=== PATIENT | male | born 1940 | race Caucasian/White ===

== ENCOUNTER 2023-05-13 06:30 | Day surgery (SDC) | payer OTHER ==
[2023-05-10 11:32] LABS: Absolute Lymphocytes (CBC) 1.8 K/uL (0.7-4.9); Hematocrit 42.5 % (39.6-49.0); Lymphocytes % 22.3 % (15.3-44.8); MCV 90.4 fL (80-100); MPV 9.6 fL (7.6-11.3)
[2023-05-10 11:48] LABS: Potassium 3.9 mEq/L (3.5-5.1); Protime INR 1.05
--- NOTE | 2023-05-10 12:43 | RAD REPORT ---
EXAM DESCRIPTION: RAD - Chest Pa And Lat (2 Views) - 05/10/2023 11:17 am CLINICAL HISTORY: PREOP Chest pain. COMPARISON: CHEST SINGLE VIEW dated 05/05/2014 TECHNIQUE: PA and lateral views of the chest were obtained. FINDINGS: The lungs are hyperexpanded compatible with COPD. The heart is upper limit of normal in si ze. No fracture or aggressive bony process. IMPRESSION: COPD without acute process identified. The USPSTF recommends annual screening for lung cancer with low-dose CT (LDCT) in adults aged 50 to 8 0 years who have a 20 pack-year smoking history and currently smoke or have quit within the past 15 y ears.
--- NOTE | 2023-05-10 16:27 | EKG ---
Test Date: 2023-05-10 Test Time: 11:01:50 Earring Maker: ESPERANZA MEASUREMENT RESULTS: Intervals: Rate: 88 PA: QRSD: 76 QT: 402 QTc: 486 [place]: P: PA: QRS: 13 T: 61 INTERPRETIVE STATEMENTS: Atrial fibrillation Prolonged QT Abnormal ECG Compared to ECG 07/09/2014 11:55:45 Prolonged QT interval now present Sinus bradycardia no longer present Electronically Signed On 05-10-23 16:27:01 CDT by Adam Zaidi
[2023-05-13] MEDS ORDERED: FENTANYL CITR 100 MCG/2 ML ONE (06:42)
[2023-05-13] MEDS ORDERED: MIDAZOLAM HCL 5 ML ONE (06:43)
[2023-05-13] MEDS ORDERED: METOPROLOL TARTRATE 5 MG/5 ML INJ IV ONE (06:43)
[2023-05-13] MEDS ORDERED: PHENOL 1.4% ORAL SPRAY 180ML ONE (06:44)
[2023-05-13] MEDS ORDERED: ATROPINE SULF 1 MG/10 ML SYR IV ONE (06:44)
[2023-05-13] MEDS ORDERED: LIDOCAINE VISCOUS 2% SOLN 15 ML UDC ONE (06:44)
[2023-05-13] MEDS ORDERED: FLUMAZENIL 0.1 MG/ML (5 mL VIAL) IV ONE (06:44)
[2023-05-13] MEDS ORDERED: NA CHLORIDE 0.9% 500 ML ONE (06:55)
--- NOTE | 2023-05-13 14:48 | TEE ---
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 TRANSESOPHAGEAL ECHOCARDIOGRAM PROBE WAS INSERTED WITHOUT DIFFICULTY 2. NORMAL LEFT VENTRICULAR EJECTION FRACTION 60-65% 3. NO LEFT ATRIAL APPENDAGE THROMBUS IS SEEN 4. 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
--- NOTE | 2023-05-13 17:10 | EKG ---
Test Date: 2023-05-13 Test Time: 08:06:37 Hand Therapist: WALLACE MEASUREMENT RESULTS: Intervals: Rate: 66 NE: 244 QRSD: 82 QT: 422 QTc: 442 [place]: P: 79 NE: 244 QRS: 38 T: 54 INTERPRETIVE STATEMENTS: Sinus rhythm with 1st degree AV block Otherwise normal ECG Compared to ECG 05/10/2023 11:01:50 First degree AV block now present Atrial fibrillation no longer present Prolonged QT interval no longer present Electronically Signed On 05-13-23 17:09:29 CDT by Adam Zaidi
== END 2023-05-13 09:15 | disposition home or self-care (01) ==
LOC: CCL 06:30
PROVIDERS: ATTEND Internal Medicine
DX: I48.91 Unspecified atrial fibrillation (principal); I34.0 Nonrheumatic mitral (valve) insufficiency; I44.0 Atrioventricular block, first degree; I11.0 Hypertensive heart disease with heart failure; I50.9 Heart failure, unspecified; E11.9 Type 2 diabetes mellitus without complications; Z79.01 Long term (current) use of anticoagulants; Z79.84 Long term (current) use of oral hypoglycemic drugs; Z79.899 Other long term (current) drug therapy; Z87.891 Personal history of nicotine dependence
CPT/HCPCS: 93005 ×2; 93312; 85025; 80048; 36415; 85610; 85730; 71046; 92960; J2250; J7040; J0461; J3010

== ENCOUNTER 2023-06-14 14:15 | Emergency (ER) | payer OTHER ==
--- OUTSIDE RECORDS SUMMARY | 2023-06-14 14:30 | XMS REPORT | Continuity of Care Document ---
:1940 Author Organization [facility] t Address [address] [facility] [address] [place] [address] Care Team Providers Name Role Phone Mitesh Muhammad MD Primary Care Physician [phone] Mitesh Muhammad Attending Clinician Unavailable PEDRITO ZAVALETA Attending Clinician Unavailable Abiodun Sanchez Attending Clinician Unavailable Adam Zaidi Attending Clinician Unavailable Doctor Unassigned, [place] Attending Clinician Unavailable Cipriano ALCAZAR, Sendil K.H. Attending Clinician JARRELL COTA K.H. Attending Clinician Unavailable Pedrito Zavaleta MD Attending Clinician 2, [facility] Attending Clinician Unavailable Crow ALCAZAR, [place] Eaton Attending Clinician MITCH MONSIVAIS Attending Clinician Unavailable Nurse, [facility] Attending Clinician Unavailable Unknown, Attending Attending Clinician Unavailable FUAD RODRIGUEZ Attending Clinician Unavailable Michael MIGUEL, Fuad Attending Clinician Jose RODGERS, Gilda Arrington Attending Clinician Unavailable SHELDON SUAREZ Attending Clinician Unavailable Quintin Terrazas MD Attending Clinician Daniela ALCAZAR, Sheldon Attending Clinician Sanjeev RODGERS, Yesica Attending Clinician Unavailable Roseanna Blanchard DO Attending Clinician Yanira Mixon MD Attending Clinician Jermaine Sheppard MD Attending Clinician ELISA PERRY Attending Clinician Unavailable CHUY DIETZ III Attending Clinician Unavailable ALEXI BLANCHARD Attending Clinician Unavailable MD ALEXI BLANCHARD Attending Clinician Unavailable VALERIY ARMENTA Attending Clinician Unavailable SHANNON WANG Attending Clinician Unavailable PEDRITO ZAVALETA Admitting Clinician Unavailable Abiodun Sanchez Admitting Clinician Unavailable Mitesh Muhammad Admitting Clinician Unavailable SHELDON SUAREZ Admitting Clinician Unavailable Sheldon Suarez MD Admitting Clinician Jermaine Sheppard MD Admitting Clinician JERMAINE SHEPPARD Admitting Clinician Unavailable ALEXI BLANCHARD Admitting Clinician Unavailable MD ALEXI BLANCHARD Admitting Clinician Unavailable Payers Payer Name Policy Type Policy Number Effective Date Expiration Date S tierra MEDICARE PART A [id number] 2005 \\T\\ B 00:00:00 [place] LYUDMILA GOODMAN [id number] 2013 00:00:00 [facility] MAXINE [id number] Common joel - [facility] Problems Condition Condition Condition Status Onset Resolution Last Treating Co mments Source Name Details Category Date Date Treatment Clinician Date Persistent Persistent Disease Active Overview : Univers atrial atrial 2-21 Formattin ity of fibrillati fibrillati 00:00: g of this [place] on on note Medical might be Branch different from the original. Added automatic ally from request for surgery [id number] Hypoxia Hypoxia Disease Active Univers 4-20 ity of 00:00: [place] 00 Medical Branch Acute on Acute on Disease Active Unive rs chronic chronic 3-13 it[place] of diastolic diastolic [place] congest[place] congestive 00 Me dical heart heart Branch failure failure Nonrheumat Nonrheumat Disease Active U pablo ic mitral ic mitral 3-13 ity of valve valve 00:00: [place] regurgitat regurgitat 00 Me dical ion ion Branch Pulmonary Pulmonary Disease Active Uni vers hypertensi hypertensi 3-13 it y of on on 00:00: Medical Branch SANTOS (acute SANTOS (acute Disease Active U nivers kidney kidney 3-13 ity of injury) injury) 00:00: Medical Branch Chronic Chronic Disease Active Univers atrial atrial 3-13 ity of fibrillati fibrill[place] Chronic Chronic Disease Active Univers diastolic diastolic 3-13 ity of congestive congestive 00:[place] heart heart 00 Medical failure failure Branch Syncope Syncope Disease Active Univers and and 3-12 ity of collapse collapse 00:00: [place] Medical Branch Atrial Atrial Disease Active Methodi fibrillati fibrillati 2-07 st on on 00:00: Hospita 00 l Controlled Controlled Disease Active U pablo type 2 type 2 6-09 ity of diabetes diabetes 00:00: [place] mellitus mellitus 00 Medica l without without Branch complicati complicati on, on, without without long-term long-term current current use of use of insulin insulin Primary Primary Disease Active Univers hypothyroi hypothyroi 6-09 it y of dism dism 00:00: Medical Branch Essential Essential Disease Active Uni vers hypertensi hypertensi 6-09 it y of on on 00:00: Medical Branch Mixed Mixed Disease Active Univers hyperlipid hyperlipid 6-09 it y of emia emia 00:00: Medical Branch AF AF Disease Active 2015-11 Methodi (paroxysma (paroxysma 0-06 st l atrial l atrial 00:00: Hospit a fibrillati fibrillati 00 l on) on) Right Right Disease Active Univers shoulder shoulder 1-22 ity of pain pain 00:00: [place] Medical Branch Right Right Disease Active Univers shoulder shoulder 1-22 ity of injury, injury, 00:00: [place] sequela sequela 00 Medical Branch [id number] Kidney Problem Common stones [facility] [id number] Renal Problem Commo n [id number] lesion [facility] Allergies, Adverse Reactions, Alerts Allergy Allergy Status Severity Reaction(s) Onset Inactive Treating Comm ents Source Name Type Date Date Clinician No Known DA Active U [facility] Allergie 05-17 Clear s 00:00: [place] 00 [facility] [place] Propensi Active Itching Metho di one ty to 16 st adverse 00:00: Hospita reaction 00 l s to drug ASPIRIN DRUG Active Unknown-Cmnt Uni vers INGREDI 08-12 ity of 00:00: [place] 00 Medical Branch Aspirin Propensi Active Unknown - Because Uni vers ty to See comments 08-12 he is ity of adverse 00:00: taking [place] reaction 00 eliquis Medical s Branch NSAIDS Drug Active Low Unknown-Cmnt Univ ers (NON-SRINIVAS Class 7 ity of ROIDAL 00:00: [place] ANTI-INF 00 Medical LAMMATOR Branch Y DRUG) Nsaids Propensi Active Unknown - Pt taking Un luis m (Non-Srinivas ty to See comments 06-17 Coumadin, ity of roidal adverse 00:00: States, [place] Anti-Inf reaction 00 "MY Medica l lammator s doctor Branch y Drug) told mr not to take anything related to NSAIDS Nsaids Propensi Active Unknown - Pt taking Un luis m (Non-Srinivas ty to See comments 06-17 Coumadin, ity of roidal adverse 00:00: States, [place] Anti-Inf reaction 00 "MY Medica l lammator s doctor Branch y Drug) told mr not to take anything related to NSAIDS Nsaids Propensi Active Unknown - Pt taking Un luis m (Non-Srinivas ty to See comments 7 Coumadin, ity of roidal adverse 00:00: States, [place] Anti-Inf reaction 00 "MY Medica l lammator s doctor Branch y Drug) told mr not to take anything related to NSAIDS Family History Family Member Diagnosis Comments Start Date Stop Date Source Natural father Heart failure [facility] Natural [facility] Social History Social Habit Start Date Stop Date Quantity Comments Source Gender identity [facility] Sexual orientation [facility] History of Tobacco Common Spirit - Use [facility] History of Social 2023-01-23 2023-01-[address] function 00:00:00 00:00:00 Hospital Exposure to 2022-12-24 2023-01-03 Not sure University SARS-CoV-2 (event) 00:00:00 09:40:00 [facility] Tobacco use and 2022-10-31 2022-10-31 Smokeless Universit y of exposure 00:00:00 00:00:00 tobacco non-user [facility] Alcohol intake 2021-12-27 2021-12-27 Current [facility] 00:00:00 00:00:00 non-drinker of Hospital alcohol (finding) Sex Assigned At [birth year] [facility] 00:[facility] Smoking Status Start Date Stop Date Source Ex-smoker 2022-10-31 00:00:00 2022-10-31 00:00:[address] [facility] Medications Ordered Filled Start Stop Current Ordering Indication Dosage Frequency Signature Comments Components Source Medication Medication Date Date Medication? Clinician (SIG) Name Name aspirin 81 0 Yes 81mg Take 81 mg U nivers mg chewable 2-16 by mouth ity of tablet 10:06: daily. [address] apixaban 5 2022-0 Yes 5mg Take 5 mg Un luis m mg tablet 2-16 by mouth 2 ity of 10:06: (two) [place] 02 times Medical daily. Branch aspirin 81 2022-0 Yes 81mg Take 81 mg U nivers mg chewable 2-16 by mouth ity of tablet 10:06: daily. [address] apixaban 5 2022-0 Yes 5mg Take 5 mg Un luis m mg tablet 2-16 by mouth 2 ity of 10:06: (two) [place] 02 times Medical daily. Branch aspirin 81 2022-0 Yes 81mg Take 81 mg U nivers mg chewable 2-16 by mouth ity of tablet 10:06: daily. [address] apixaban 5 2022-0 Yes 5mg Take 5 mg Un luis m mg tablet 2-16 by mouth 2 ity of 10:06: (two) [place] 02 times Medical daily. Branch aspirin 81 3-0 Yes 81mg Take 81 mg U nivers mg chewable 2-16 by mouth ity of tablet 10:06: daily. [place] [facility] Branch apixaban 5 3-0 Yes 5mg Take 5 mg Un luis m mg tablet 2-16 by mouth 2 ity of 10:06: (two) [place] 02 times Medical daily. Branch aspirin 81 3-0 Yes 81mg Take 81 mg U nivers mg chewable 2-16 by mouth ity of tablet 10:06: daily. [place] Medical Branch apixaban 5 3-0 Yes 5mg Take 5 mg Un luis m mg tablet 2-16 by mouth 2 ity of 10:06: (two) [place] 02 times Medical daily. Branch aspirin 81 3-0 Yes 81mg Take 81 mg U nivers mg chewable 2-16 by mouth ity of tablet 10:06: daily. [place] [address] Medical Branch apixaban 5 3-0 Yes 5mg Take 5 mg Un luis m mg tablet 2-16 by mouth 2 ity of 10:06: (two) [place] 02 times Medical daily. Branch aspirin 81 3-0 Yes 81mg Take 81 mg U nivers mg chewable 2-16 by mouth ity of tablet 10:06: daily. [place] [address] Medical Branch apixaban 5 3-0 Yes 5mg Take 5 mg Un luis m mg tablet 2-16 by mouth 2 ity of 10:06: (two) [place] 02 times Medical daily. Branch aspirin 81 3-0 Yes 81mg Take 81 mg U nivers mg chewable 2-16 by mouth ity of tablet 10:06: daily. [place] [address] Medical Branch apixaban 5 3-0 Yes 5mg Take 5 mg Un luis m mg tablet 2-16 by mouth 2 ity of 10:06: (two) [place] 02 times Medical daily. Branch aspirin 81 3-0 Yes 81mg Take 81 mg U nivers mg chewable 2-16 by mouth ity of tablet 10:06: daily. [place] [address] Medical Branch apixaban 5 3-0 Yes 5mg Take 5 mg Un luis m mg tablet 2-16 by mouth 2 ity of 10:06: (two) [place] 02 times Medical daily. Branch aspirin 81 3-0 Yes 81mg Take 81 mg U nivers mg chewable 2-16 by mouth ity of tablet 10:06: daily. [place] [facility] Branch apixaban 5 2022-0 Yes 5mg Take 5 mg Un luis m mg tablet 2-16 by mouth 2 ity of 10:06: (two) [place] 02 times Medical daily. Branch amiodarone 0 2022- No 100mg Take 100 U nivers (PACERONE) - 02-02 mg by ity of 100 mg 08:42: 00:00 mouth [place] tablet 13 :00 daily. Medical Branch aspirin 81 2022-0 Yes 81mg Take 81 mg U nivers mg chewable 02 by mouth ity of tablet 08:41: daily. [place] [facility] apixaban 2022-0 Yes 5mg Take 5 mg Univ ers (ELIQUIS) 5 12-20 by mouth 2 it y of mg tablet 08:41: (two) [place] times Medical daily. Branch metoprolol 0 2022- No Take by Uni vers succinate 12-20-02 mouth ity of (TOPROL XL 08:39: 00:00 [place]. [place] ORAL[place] 13 :00 [facility] Branch metoprolol 2022-0 Yes 25mg Take 1 Unive rs tartrate 25 2-02 tablet by ity of mg tablet 00:00: mouth [place] 00 the Medical morning Branch and 1 tablet in the evening. metformin 2022-0 Yes [id number] 500mg Take 1 Univers ER 500 mg 2-02 tablet by ity o f 24 hr 00:00: mouth in [place] tablet 00 the Medical morning Branch and 1 tablet in the evening. metoprolol 3-0 Yes 25mg Take 1 Unive rs tartrate 25 2-02 tablet by ity of mg tablet 00:00: mouth [place] 00 the Medical morning Branch and 1 tablet in the evening. metformin 2022-0 Yes [id number] 500mg Take 1 Univers ER 500 mg 2-02 tablet by ity o f 24 hr 00:00: mouth in [place] tablet 00 the Medical morning Branch and 1 tablet in the evening. metoprolol 3-0 Yes 25mg Take 1 Unive rs tartrate 25 2-02 tablet by ity of mg tablet 00:00: mouth [place] 00 the Medical morning Branch and 1 tablet in the evening. metformin 3-0 Yes [id number] 500mg Take 1 Univers ER 500 mg 2-02 tablet by ity o f 24 hr 00:00: mouth in [place] tablet 00 the Medical morning Branch and 1 tablet in the evening. metoprolol 2023-0 Yes 25mg Take 1 Unive rs tartrate 25 2-02 tablet by ity of mg tablet 00:00: mouth [place] 00 the Medical morning Branch and 1 tablet in the evening. metformin 2023-0 Yes [id number] 500mg Take 1 Univers ER 500 mg 2-02 tablet by ity o f 24 hr 00:00: mouth in [place] tablet 00 the Medical morning Branch and 1 tablet in the evening. metoprolol 2023-0 Yes 25mg Take 1 Unive rs tartrate 25 2-02 tablet by ity of mg tablet 00:00: mouth [place] 00 the Medical morning Branch and 1 tablet in the evening. metformin 2023-0 Yes [id number] 500mg Take 1 Univers ER 500 mg 2-02 tablet by ity o f 24 hr 00:00: mouth in [place] tablet 00 the Medical morning Branch and 1 tablet in the evening. metoprolol 2023-0 Yes 25mg Take 1 Unive rs tartrate 25 2-02 tablet by ity of mg tablet 00:00: mouth [place] 00 the Medical morning Branch and 1 tablet in the evening. metformin 2023-0 Yes [id number] 500mg Take 1 Univers ER 500 mg 2-02 tablet by ity o f 24 hr 00:00: mouth in [place] tablet 00 the Medical morning Branch and 1 tablet in the evening. metoprolol 2023-0 Yes 25mg Take 1 Unive rs tartrate 25 2-02 tablet by ity of mg tablet 00:00: mouth [place] 00 the Medical morning Branch and 1 tablet in the evening. metformin 2023-0 Yes [id number] 500mg Take 1 Univers ER 500 mg 2-02 tablet by ity o f 24 hr 00:00: mouth in [place] tablet 00 the Medical morning Branch and 1 tablet in the evening. metoprolol 2023-0 Yes 25mg Take 1 Unive rs tartrate 25 2-02 tablet by ity of mg tablet 00:00: mouth [place] 00 the Medical morning Branch and 1 tablet in the evening. metformin 2023-0 Yes [id number] 500mg Take 1 Univers ER 500 mg 2-02 tablet by ity o f 24 hr 00:00: mouth in [place] tablet 00 the Medical morning Branch and 1 tablet in the evening. metoprolol 2022-0 Yes 25mg Take 1 Unive rs tartrate 25 2-02 tablet by ity of mg tablet 00:00: mouth [place] 00 the Medical morning Branch and 1 tablet in the evening. metformin 2022-0 Yes [id number] 500mg Take 1 Univers ER 500 mg 2-02 tablet by ity o f 24 hr 00:00: mouth in [place] tablet 00 the Medical morning Branch and 1 tablet in the evening. metoprolol 2022-0 Yes 25mg Take 1 Unive rs tartrate 25 2-02 tablet by ity of mg tablet 00:00: mouth [place] 00 the Medical morning Branch and 1 tablet in the evening. metformin 2022-0 Yes [id number] 500mg Take 1 Univers ER 500 mg 2-02 tablet by ity o f 24 hr 00:00: mouth in [place] tablet 00 the Medical morning Branch and 1 tablet in the evening. amiodarone 0 Yes 100mg Take 100 Un luis m (PACERONE) 1-27 mg by ity of 100 mg 11:29: mouth [place] tablet 45 daily. Medical Branch amiodarone 2022-0 Yes 100mg Take 100 Un luis m (PACERONE) 1-27 mg by ity of 100 mg 11:29: mouth [place] tablet 45 daily. Medical Branch metoprolol 0 Yes Take by Univ ers succinate 1-26 mouth ity of (TOPROL XL 13:24: daily. [place] ORAL) 47 Medical Branch metoprolol 0 Yes Take by Univ ers succinate 1-26 mouth ity of (TOPROL XL 13:24: daily. [place] ORAL) 47 Medical Branch metoprolol 0 Yes Take by Univ ers succinate 1-26 mouth ity of (TOPROL XL 13:24: daily. [place] ORAL) 47 Medical Branch metoprolol 0 Yes Take by Univ ers succinate 1-26 mouth ity of (TOPROL XL 13:24: daily. [place] ORAL) 47 Medical Branch metoprolol 0 Yes Take by Univ ers succinate 1-26 mouth ity of (TOPROL XL 13:24: daily. [place] ORAL) 47 Medical Branch metoprolol 0 Yes Take by Univ ers succinate 1-26 mouth ity of (TOPROL XL 13:24: daily. [facility]) Medical Branch aspirin 81 3-0 Yes 81mg Take 81 mg U nivers mg chewable 1-26 by mouth ity of tablet 13:07: daily. [place] [address] Medical Branch aspirin 81 3-0 Yes 81mg Take 81 mg U nivers mg chewable 1-26 by mouth ity of tablet 13:07: daily. [address] Branch aspirin 81 3-0 Yes 81mg Take 81 mg U nivers mg chewable 1-26 by mouth ity of tablet 13:07: daily. [address] Branch aspirin 81 3-0 Yes 81mg Take 81 mg U nivers mg chewable 1-26 by mouth ity of tablet 13:07: daily. [address] Branch aspirin 81 3-0 Yes 81mg Take 81 mg U nivers mg chewable 1-26 by mouth ity of tablet 13:07: daily. [address] Branch aspirin 81 3-0 Yes 81mg Take 81 mg U nivers mg chewable -26 by mouth ity of tablet 13:07: daily. [address] Branch apixaban 3-0 Yes 5mg Take 5 mg Univ ers (ELIQUIS) 5 - by mouth 2 it y of mg tablet 13:06: (two) [place] 35 times Medical daily. Branch apixaban 3-0 Yes 5mg Take 5 mg Univ ers (ELIQUIS) 5 -26 by mouth 2 it y of mg tablet 13:06: (two) [place] 35 times Medical daily. Branch apixaban 2023-0 Yes 5mg Take 5 mg Univ ers (ELIQUIS) 5 -26 by mouth 2 it y of mg tablet 13:06: (two) [place] 35 times Medical daily. Branch apixaban 3-0 Yes 5mg Take 5 mg Univ ers (ELIQUIS) 5 -26 by mouth 2 it y of mg tablet 13:06: (two) [place] 35 times Medical daily. Branch apixaban 3-0 Yes 5mg Take 5 mg Univ ers (ELIQUIS) 5 -26 by mouth 2 it y of mg tablet 13:06: (two) [place] 35 times Medical daily. Branch apixaban 2023-0 Yes 5mg Take 5 mg Univ ers (ELIQUIS) 5 1-26 by mouth 2 it y of mg tablet 13:06: (two) [place] 35 times Medical daily. Branch amiodarone 0 Yes 100mg Take 100 Un luis m (PACERONE) 1-26 mg by ity of 100 mg 13:06: mouth [place] tablet 25 daily. Medical Branch amiodarone 0 Yes 100mg Take 100 Un luis m (PACERONE) 1-26 mg by ity of 100 mg 13:06: mouth [place] tablet 25 daily. Medical Branch amiodarone 0 Yes 100mg Take 100 Un luis m (PACERONE) 1-26 mg by ity of 100 mg 13:06: mouth [place] tablet 25 daily. Medical Branch amiodarone 0 Yes 100mg Take 100 Un luis m (PACERONE) 1-26 mg by ity of 100 mg 13:06: mouth [place] tablet 25 daily. Medical Branch metformin 2022-0 Yes [id number] 500mg Take 1 Univers ER 500 mg 1-26 tablet by ity o f 24 hr 00:00: mouth [place] tablet 00 daily with Medical breakfast. Branch metformin 2022-0 Yes [id number] 500mg Take 1 Univers ER 500 mg 1-26 tablet by ity o f 24 hr 00:00: mouth [place] tablet 00 daily with Medical breakfast. Branch metformin 2022-0 Yes [id number] 500mg Take 1 Univers ER 500 mg 1-26 tablet by ity o f 24 hr 00:00: mouth [place] tablet 00 daily with Medical breakfast. Branch metformin 2022-0 Yes [id number] 500mg Take 1 Univers ER 500 mg 1-26 tablet by ity o f 24 hr 00:00: mouth [place] tablet 00 daily with Medical breakfast. Branch metformin 0 Yes [id number] 500mg Take 1 Univers ER 500 mg 1-26 tablet by ity o f 24 hr 00:00: mouth [place] tablet 00 daily with Medical breakfast. Branch metformin 2022-0 Yes [id number] 500mg Take 1 Univers ER 500 mg 1-26 tablet by ity o f 24 hr 00:00: mouth [place] tablet 00 daily with Medical breakfast. Branch metformin 2022-0 2022- No [id number] 500mg Take 1 Univers ER 500 mg 1-26 - tablet by ity of 24 hr 00:00: 00:00 mouth [place] tablet 00 :00 daily with Medical breakfast. Branch aspirin 81 2022-0 Yes 81mg Take 81 mg U nivers mg chewable 1-01 by mouth ity of tablet 17:01: daily. [address] aspirin 81 2022-0 Yes 81mg Take 81 mg U nivers mg chewable 1-01 by mouth ity of tablet 17:01: daily. [address] aspirin 81 2022-0 Yes 81mg Take 81 mg U nivers mg chewable 1-01 by mouth ity of tablet 17:01: daily. [address] aspirin 81 2022-0 Yes 81mg Take 81 mg U nivers mg chewable 1-01 by mouth ity of tablet 17:01: daily. [address] apixaban 2021-11 Yes 5mg Take 5 mg Univ ers (ELIQUIS) 5 2-14 by mouth 2 it y of mg tablet 08:55: (two) [place] 02 times Medical daily. Branch apixaban 2021-11 Yes 5mg Take 5 mg Univ ers (ELIQUIS) 5 2-14 by mouth 2 it y of mg tablet 08:55: (two) [place] 02 times Medical daily. Branch apixaban 2021-11 Yes 5mg Take 5 mg Univ ers (ELIQUIS) 5 2-14 by mouth 2 it y of mg tablet 08:55: (two) [place] 02 times Medical daily. Branch apixaban 2021-11 Yes 5mg Take 5 mg Univ ers (ELIQUIS) 5 2-14 by mouth 2 it y of mg tablet 08:55: (two) [place] 02 times Medical daily. Branch amiodarone 2021-11 Yes 100mg Take 100 Un luis m (PACERONE) 2-14 mg by ity of 100 mg 08:55: mouth [place] tablet 01 daily. Medical Branch amiodarone 2021-11 Yes 100mg Take 100 Un luis m (PACERONE) 2-14 mg by ity of 100 mg 08:55: mouth [place] tablet 01 daily. Medical Branch amiodarone 2021-11 Yes 100mg Take 100 Un luis m (PACERONE) 2-14 mg by ity of 100 mg 08:55: mouth [place] tablet 01 daily. Medical Branch amiodarone 2021-11 Yes 100mg Take 100 Un luis m (PACERONE) 2-14 mg by ity of 100 mg 08:55: mouth [place] tablet 01 daily. Medical Branch amoxicillin 2021-11- No [id number] 1{tbl} Take 1 Univers -clavulanat 1- 11-12 tablet by it y of e [id number] 00:00: 05:59 mouth [place] mg per 00 :00 every 12 Medical tablet (twelve) Branch hours for 10 days. metoprolol 2021-11 Yes 25mg Take 25 mg U nivers tartrate 25 0-19 by mouth ity of mg tablet 00:00: in the [place] 00 morning Medical and 25 mg Branch in the evening. metoprolol 2021-11 Yes 25mg Take 25 mg U nivers tartrate 25 0-19 by mouth ity of mg tablet 00:00: in the [place] 00 morning Medical and 25 mg Branch in the evening. metoprolol 2021-11 Yes 25mg Take 25 mg U nivers tartrate 25 0-19 by mouth ity of mg tablet 00:00: in the [place] 00 morning Medical and 25 mg Branch in the evening. metoprolol 2021-11 Yes 25mg Take 25 mg U nivers tartrate 25 0-19 by mouth ity of mg tablet 00:00: in the [place] 00 morning Medical and 25 mg Branch in the evening. metoprolol 2021-11- No 25mg Take 25 mg Univers tartrate 25 0-19 01-26 by mouth ity of mg tablet 00:00: 00:00 in the [place] 00 :00 morning Medical and 25 mg Branch in the evening. metoprolol 2021-11- No 25mg Take 25 mg Univers tartrate 25 0-19 01-26 by mouth ity of mg tablet 00:00: 00:00 in the [place] 00 :00 morning Medical and 25 mg Branch in the evening. furosemide 2021-11 Yes 40mg Take 40 mg U nivers 40 mg 0-13 by mouth ity of tablet 00:00: in the [place] 00 morning. Medical Branch potassium 2021-11 Yes 10meq Take 10 Univ ers chloride 10 0-13 mEq by ity of mEq CR 00:00: mouth in [place] tablet 00 the Medical morning. Branch furosemide 2021-11 Yes 40mg Take 40 mg U nivers 40 mg 0-13 by mouth ity of tablet 00:00: in the [place] 00 morning. Medical Branch potassium 2021-11 Yes 10meq Take 10 Univ ers chloride 10 0-13 mEq by ity of mEq CR 00:00: mouth in [place] tablet 00 the Medical morning. Branch furosemide 2021-1 Yes 40mg Take 40 mg U nivers 40 mg 0-13 by mouth ity of tablet 00:00: in the [place] 00 morning. Medical Branch potassium 2021-1 Yes 10meq Take 10 Univ ers chloride 10 0-13 mEq by ity of mEq CR 00:00: mouth in [place] tablet 00 the Medical morning. Branch furosemide 2021-1 Yes 40mg Take 40 mg U nivers 40 mg 0-13 by mouth ity of tablet 00:00: in the 00 morning. Medical Branch potassium 2021-1 Yes 10meq Take 10 Univ ers chloride 10 0-13 mEq by ity of mEq CR 00:00: mouth in [place] tablet 00 the Medical morning. Branch furosemide 2021-1 Yes 40mg Take 40 mg U nivers 40 mg 0-13 by mouth ity of tablet 00:00: in the [place] morning. Medical Branch potassium 2021-1 Yes 10meq Take 10 Univ ers chloride 10 0-13 mEq by ity of mEq CR 00:00: mouth in [place] tablet 00 the Medical morning. Branch furosemide 2021-1 Yes 40mg Take 40 mg U nivers 40 mg 0-13 by mouth ity of tablet 00:00: in the [place] 00 morning. Medical Branch potassium 2021-1 Yes 10meq Take 10 Univ ers chloride 10 0-13 mEq by ity of mEq CR 00:00: mouth in [place] tablet 00 the Medical morning. Branch furosemide 2021-1 Yes 40mg Take 40 mg U nivers 40 mg 0-13 by mouth ity of tablet 00:00: in the [place] 00 morning. Medical Branch potassium 2021-1 Yes 10meq Take 10 Univ ers chloride 10 0-13 mEq by ity of mEq CR 00:00: mouth in [place] tablet 00 the Medical morning. Branch furosemide 2021-1 Yes 40mg Take 40 mg U nivers 40 mg 0-13 by mouth ity of tablet 00:00: in the [place] 00 morning. Medical Branch potassium 2-1 Yes 10meq Take 10 Univ ers chloride 10 0-13 mEq by ity of mEq CR 00:00: mouth in [place] tablet 00 the Medical morning. Branch furosemide 2-1 Yes 40mg Take 40 mg U nivers 40 mg 0-13 by mouth ity of tablet 00:00: in the [place] 00 morning. Medical Branch potassium 2021-1 Yes 10meq Take 10 Univ ers chloride 10 0-13 mEq by ity of mEq CR 00:00: mouth in [place] tablet 00 the Medical morning. Branch furosemide 2-1 Yes 40mg Take 40 mg U nivers 40 mg 0-13 by mouth ity of tablet 00:00: in the [place] 00 morning. Medical Branch potassium 2021-1 Yes 10meq Take 10 Univ ers chloride 10 0-13 mEq by ity of mEq CR 00:00: mouth in [place] tablet 00 the Medical morning. Branch furosemide 2021-1 Yes 40mg Take 40 mg U nivers 40 mg 0-13 by mouth ity of tablet 00:00: in the [place] 00 morning. Medical Branch potassium 2021-1 Yes 10meq Take 10 Univ ers chloride 10 0-13 mEq by ity of mEq CR 00:00: mouth in [place] tablet 00 the Medical morning. Branch furosemide 2021-1 Yes 40mg Take 40 mg U nivers 40 mg 0-13 by mouth ity of tablet 00:00: in the [place] 00 morning. Medical Branch potassium 2021-1 Yes 10meq Take 10 Univ ers chloride 10 0-13 mEq by ity of mEq CR 00:00: mouth in [place] tablet 00 the Medical morning. Branch furosemide 2021-1 Yes 40mg Take 40 mg U nivers 40 mg 0-13 by mouth ity of tablet 00:00: in the [place] 00 morning. Medical Branch potassium 2-1 Yes 10meq Take 10 Univ ers chloride 10 0-13 mEq by ity of mEq CR 00:00: mouth in [place] tablet 00 the Medical morning. Branch furosemide 2-1 Yes 40mg Take 40 mg U nivers 40 mg 0-13 by mouth ity of tablet 00:00: in the [place] 00 morning. Medical Branch potassium 2021-1 Yes 10meq Take 10 Univ ers chloride 10 0-13 mEq by ity of mEq CR 00:00: mouth in [place] tablet 00 the Medical morning. Branch furosemide 2-1 Yes 40mg Take 40 mg U nivers 40 mg 0-13 by mouth ity of tablet 00:00: in the [place] 00 morning. Medical Branch potassium 2-1 Yes 10meq Take 10 Univ ers chloride 10 0-13 mEq by ity of mEq CR 00:00: mouth in [place] tablet 00 the Medical morning. Branch furosemide 2021-1 Yes 40mg Take 40 mg U nivers 40 mg 0-13 by mouth ity of tablet 00:00: in the [place] 00 morning. Medical Branch potassium 2021-1 Yes 10meq Take 10 Univ ers chloride 10 0-13 mEq by ity of mEq CR 00:00: mouth in [place] tablet 00 the Medical morning. Branch furosemide 2021-1 Yes 40mg Take 40 mg U nivers 40 mg 0-13 by mouth ity of tablet 00:00: in the [place] 00 morning. Medical Branch potassium 2021-1 Yes 10meq Take 10 Univ ers chloride 10 0-13 mEq by ity of mEq CR 00:00: mouth in [place] tablet 00 the Medical morning. Branch furosemide 2021-1 Yes 40mg Take 40 mg U nivers 40 mg 0-13 by mouth ity of tablet 00:00: in the [place] 00 morning. Medical Branch potassium 2021-1 Yes 10meq Take 10 Univ ers chloride 10 0-13 mEq by ity of mEq CR 00:00: mouth in [place] tablet 00 the Medical morning. Branch furosemide 2021-1 Yes 40mg Take 40 mg U nivers 40 mg 0-13 by mouth ity of tablet 00:00: in the [place] 00 morning. Medical Branch potassium 2021-1 Yes 10meq Take 10 Univ ers chloride 10 0-13 mEq by ity of mEq CR 00:00: mouth in [place] tablet 00 the Medical morning. Branch furosemide 2021-1 Yes 40mg Take 40 mg U nivers 40 mg 0-13 by mouth ity of tablet 00:00: in the [place] 00 morning. Medical Branch potassium 2021-1 Yes 10meq Take 10 Univ ers chloride 10 0-13 mEq by ity of mEq CR 00:00: mouth in [place] tablet 00 the Medical morning. Branch furosemide 2021-1 Yes 40mg Take 40 mg U nivers 40 mg 0-13 by mouth ity of tablet 00:00: in the [place] 00 morning. Medical Branch potassium 2021-1 Yes 10meq Take 10 Univ ers chloride 10 0-13 mEq by ity of mEq CR 00:00: mouth in [place] tablet 00 the Medical morning. Branch cephALEXin 2021-0 2022- No [id number] 500mg Take 1 [facility] 500 mg 6-05 06-13 capsule by ity of capsule 00:00: 04:59 mouth 4 [place] 00 :00 (four) Medical times [place] daily for 7 days. metoprolol 2021- No [id number] 25mg Take 1 [facility] succinate 4-23 05-24 tablet by ity of XL 25 mg 24 00:00: 04:59 mouth [place] hr tablet 00 :00 daily for Medic al 30 days. Branch metoprolol 2021- No [id number] 25mg Take 1 [facility] succinate 4-23 05-24 tablet by ity of XL 25 mg 24 00:00: 04:59 mouth [place] hr tablet 00 :00 daily for Medic al 30 days. Branch aspirin 81 Yes 81mg Take 81 mg U nivers mg chewable 4-22 by mouth ity of tablet 13:49: daily. [place] [facility] apixaban Yes 5mg Take 5 mg Univ ers (ELIQUIS) 5 4-22 by mouth 2 it y of mg tablet 13:49: (two) [place] [address] times [facility] daily. Branch amiodarone Yes 100mg Take 100 Un luis m (PACERONE) 4-22 mg by ity of 100 mg 13:49: mouth [place] tablet 29 daily. Medical Branch aspirin 81 Yes 81mg Take 81 mg U nivers mg chewable 4-22 by mouth ity of tablet 13:49: daily. [place] [facility] apixaban 0 Yes 5mg Take 5 mg Univ ers (ELIQUIS) 5 4-22 by mouth 2 it y of mg tablet 13:49: (two) [place] [address] times Medical daily. Branch amiodarone Yes 100mg Take 100 Un luis m (PACERONE) 4-22 mg by ity of 100 mg 13:49: mouth [place] tablet 29 daily. Medical Branch aspirin 81 0 Yes 81mg Take 81 mg U nivers mg chewable 4-22 by mouth ity of tablet 13:49: daily. [place] [facility] apixaban 0 Yes 5mg Take 5 mg Univ ers (ELIQUIS) 5 4-22 by mouth 2 it y of mg tablet 13:49: (two) [place] [address] times Medical daily. Branch amiodarone Yes 100mg Take 100 Un luis m (PACERONE) 4-22 mg by ity of 100 mg 13:49: mouth [place] tablet 29 daily. Medical Branch aspirin 81 Yes 81mg Take 81 mg U nivers mg chewable 4-22 by mouth ity of tablet 13:49: daily. [place] [facility] Branch apixaban Yes 5mg Take 5 mg Univ ers (ELIQUIS) 5 4-22 by mouth 2 it y of mg tablet 13:49: (two) [place] 29 times Medical daily. Branch amiodarone Yes 100mg Take 100 Un luis m (PACERONE) 4-22 mg by ity of 100 mg 13:49: mouth [place] tablet 29 daily. Medical Branch aspirin 81 Yes 81mg Take 81 mg U nivers mg chewable 4-22 by mouth ity of tablet 13:49: daily. [place] [facility] Branch apixaban Yes 5mg Take 5 mg Univ ers (ELIQUIS) 5 4-22 by mouth 2 it y of mg tablet 13:49: (two) [place] times Medical daily. Branch amiodarone Yes 100mg Take 100 Un luis m (PACERONE) 4-22 mg by ity of 100 mg 13:49: mouth [place] tablet 29 daily. Medical Branch furosemide 2021- No [id number] 40mg Take 1 [facility] 40 mg 4-22 05-23 tablet by ity of tablet 00:00: 04:59 mouth [place] 00 :00 every Medical morning Branch and evening for 30 days. furosemide 2021- No [id number] 40mg Take 1 [facility] 40 mg 4-22 05-23 tablet by ity of tablet 00:00: 04:59 mouth [place] 00 :00 every Medical morning Branch and evening for 30 days. docusate Yes 100mg 100 mg, Unive rs (COLACE) 4-21 Oral, ity of capsule 100 14:00: DAILY, [place] 00 First dose Medical on [facility] 03/08/22 at 0900, Until Discontinu ed, Routine metoprolol Yes 25mg 25 mg, Unive rs succinate 4-21 Oral, ity of XL (TOPROL 14:00: DAILY, [place] XL) tablet 00 First dose Med ical 25 mg on [facility] 03/08/22 at 0900, Until Discontinu ed, Routine tamsulosin Yes .4mg 0.4 mg, Univ ers (FLOMAX) 03-08 Oral, ity of capsule 0.4 14:00: DAILY, [place] mg 00 First dose Medical on [facility] Branch 03/08/22 at 0900, Until Discontinu ed, Routine Sliding Yes Subcutaneo Univ ers Scale 03-08 us, TID ity of Insulin - 13:00: MEALS, [place] Lispro 00 First dose Medical (HumaLOG) + on [facility] Branch Fsbg 03/08/22 at Testing 0800, Until Discontinu ed, Routine apixaban Yes 5mg 5 mg, Univers (ELIQUIS) 03-08 Oral, BID, ity of tablet 5 mg 13:00: First dose [place] 00 on [facility] Medical 03/08/22 at Branch 0800, Until Discontinu ed, Routine
Indicatio ns: Non-Valvul ar Atrial Fibrillati on furosemide Yes 20mg 20 mg, Unive rs (LASIX) 03-08 Slow IV ity of injection 11:00: Push, Q8H, [place] 20 mg 00 First dose Medical (after Branch last modificati on) on [facility] 03/08/22 at 0600, Until Discontinu ed, DEE levothyroxi Yes 100ug 100 mcg, U nivers ne 03-08 Oral, ity of (SYNTHROID) 11:00: QAM-0600, [place] tablet 100 00 First dose Med ical mcg on [facility] Branch 03/08/22 at 0600, Until Discontinu ed, Routine aspirin Yes 81mg 81 mg, Univers chewable 03-08 Oral, QAM ity of tablet 81 08:00: WITH [place] mg 00 BREAKFAST, Medical First dose Branch on [facility] 03/08/22 at 0300, Until Discontinu ed, Routine ondansetron Yes 4mg 4 mg, Slow Univers (ZOFRAN 03-08 IV Push, ity of (PF)) 07:58: Q6HPRN, [place] injection 4 24 Starting Medi joo mg on [facility] Branch 03/08/22 at 0258, Until Discontinu ed, Routine, Nausea and Vomiting (N/V) glucagon Yes 1mg 1 mg, Univers (GLUCAGEN 03-08 Intramuscu ity of DIAGNOSTIC 07:57: [place], PRN, [place] KIT) 08 Starting Medical injection 1 on [place] Branch mg 03/08/22 at 0257, Until Discontinu ed, DEE, Blood Glucose < or = 70 mg/dL and patient is unable to swallow or has mental changes. dextrose 50 Yes 25mL 25 mL, Univ ers % in water 03-08 Slow IV ity of (D50W) 07:57: Push, PRN, [place] injection 08 Starting Medica l 25 mL on [place] Branch 03/08/22 at 0257, Until Discontinu ed, DEE, Blood Glucose < or = 70 mg/dL and patient is unable to swallow or has mental status changes. furosemide 2021- No 20mg 20 mg, Univ ers (LASIX) 03-08 Slow IV ity of injection 05:00: 10:42 Push, Q6H, [place] 20 mg 00 :16 First dose Medical on [facility] Branch 03/08/22 at 0000, Until Discontinu ed, DEE iopamidol 2021- No [id number] 100mL 100 mL, Univers (ISOVUE 03-08 Intravenou ity o f 370-500 mL) 04:00: 02:52 s, ONCE, 1 [place] injection 00 :00 dose, On Medica l 100 mL [facility] Branch 03/07/22 at 2300, Routine amiodarone 2021- No [id number] 200mg Take 1 Univers 200 mg 3-15 04-15 tablet by ity of tablet 00:00: 04:59 mouth [place] 00 :00 daily for Medical 30 days. Branch amiodarone 2021- No [id number] 200mg Take 1 Univers 200 mg 3-15 04-15 tablet by ity of tablet 00:00: 04:59 mouth [place] 00 :00 daily for Medical 30 days. Branch aspirin 81 Yes 81mg Take 81 mg U nivers mg chewable 3-14 by mouth ity of tablet 16:15: daily. [place] 37 [facility] Branch apixaban 2022-0 Yes 5mg Take 5 mg Univ ers (ELIQUIS) 5 3-14 by mouth 2 it y of mg tablet 16:15: (two) [place] [address] times Medical daily. Branch aspirin 81 0 Yes 81mg Take 81 mg U nivers mg chewable 3-14 by mouth ity of tablet 16:15: daily. [address] apixaban 0 Yes 5mg Take 5 mg Univ ers (ELIQUIS) 5 3-14 by mouth 2 it y of mg tablet 16:15: (two) [place] [address] times Medical daily. Branch melatonin Yes 3mg 3 mg, Univers (MELATIN) 3-14 Oral, QHS, ity of tablet 3 mg 03:30: First dose [place] 00 on [facility] 01/28/22 at Branch 2230, Until Discontinu ed, Routine melatonin 3 2021- No [id number] 3mg Take 1 Univers mg tablet 01-29-14 tablet by ity of 00:00: 04:59 mouth at [place] 00 :00 bedtime Medical for 30 Branch days. melatonin 3 2021- No [id number] 3mg Take 1 Univers mg tablet 01-29-14 tablet by ity of 00:00: 04:59 mouth at [place] 00 :00 bedtime Medical for 30 Branch days. amiodarone Yes 200mg 200 mg, Uni vers (PACERONE) 3-13 Oral, ity of tablet 200 14:00: DAILY, [place] mg 00 First dose Medical on [facility] 01/28/22 at 0900, Until Discontinu ed, Routine metoprolol Yes 50mg 50 mg, Unive rs succinate 3-13 Oral, ity of XL (TOPROL 14:00: DAILY, [place] XL) tablet 00 First dose Med ical 50 mg on [facility] 01/28/22 at 0900, Until Discontinu ed, Routine tamsulosin Yes .4mg 0.4 mg, Univ ers (FLOMAX) 3-13 Oral, ity of capsule 0.4 14:00: DAILY, [place] mg 00 First dose Medical on [facility] 01/28/22 at 0900, Until Discontinu ed, Routine apixaban Yes 5mg 5 mg, Univers (ELIQUIS) 3-13 Oral, BID, ity of tablet 5 mg 13:00: First dose on [facility] 01/28/22 at Branch 0800, Until Discontinu ed, Routine
Indicatio ns: Non-Valvul ar Atrial Fibrillati on levothyroxi Yes 75ug 75 mcg, Uni vers ne 3-13 Oral, ity of (SYNTHROID) 11:00: QAM-0600, [place] tablet 75 00 First dose Medi joo mcg on [facility] 01/28/22 at 0600, Until Discontinu ed, Routine HYDROcodone 2021- No 1{tbl} 1 tablet, Univers -acetaminop 01-28-13 Oral, ity of hen (NORCO 03:30: 02:29 ONCE, 1 [place] 5) 5-325 mg 00 :00 dose, On Medi joo tablet 1 [facility] tablet 01/27/22 at 2130, DEE traMADoL 2021- No 50mg 50 mg, Univer s (ULTRAM) 01-2815 Oral, ity of tablet 50 02:42: 02:41 Q4HPRN, [place] mg 21 :21 Starting Medical on [facility] 01/27/22 at 204, Until 01/29/22 at 2141, Routine, Pain (scale 4-6) acetaminoph Yes 650mg 650 mg, Un luis m en 13 Oral, ity of (TYLENOL) 02:42: Q6HPRN, [place] tablet 650 17 Starting Medic al mg on [facility] 01/27/22 at 2041, Until Discontinu ed, Routine, Pain (scale 1-3) tamsulosin 0 Yes Univers 0.4 mg 24 2-18 ity of hr capsule 00:00: [address] tamsulosin 2021-0 Yes Univers 0.4 mg 24 2-18 ity of hr capsule 00:00: [address] tamsulosin 2021-0 Yes Univers 0.4 mg 24 2-18 ity of hr capsule 00:00: [address] tamsulosin 2021-0 Yes Univers 0.4 mg 24 2-18 ity of hr capsule 00:00: [address] tamsulosin 2021-0 Yes Univers 0.4 mg 24 2-18 ity of hr capsule 00:00: [place] [facility] tamsulosin 2022-0 Yes Univers 0.4 mg 24 2-18 ity of hr capsule 00:00: [place] [facility] tamsulosin 2022-0 Yes Univers 0.4 mg 24 2-18 ity of hr capsule 00:00: [place] [facility] tamsulosin 2022-0 Yes Univers 0.4 mg 24 2-18 ity of hr capsule 00:00: [place] [facility] tamsulosin 2022-0 Yes Univers 0.4 mg 24 2-18 ity of hr capsule 00:00: [place] [facility] tamsulosin 2022-0 Yes Univers 0.4 mg 24 2-18 ity of hr capsule 00:00: [place] [facility] tamsulosin 2022-0 Yes Univers 0.4 mg 24 2-18 ity of hr capsule 00:00: [place] [facility] tamsulosin 2022-0 Yes Univers 0.4 mg 24 2-18 ity of hr capsule 00:00: [place] [facility] tamsulosin 2022-0 Yes Univers 0.4 mg 24 2-18 ity of hr capsule 00:00: [place] [facility] tamsulosin 2022-0 Yes Univers 0.4 mg 24 2-18 ity of hr capsule 00:00: [place] [facility] tamsulosin 2022-0 Yes Univers 0.4 mg 24 2-18 ity of hr capsule 00:00: [place] [facility] tamsulosin 2022-0 Yes Univers 0.4 mg 24 2-18 ity of hr capsule 00:00: [place] [facility] tamsulosin 2022-0 Yes Univers 0.4 mg 24 2-18 ity of hr capsule 00:00: [place] [facility] tamsulosin 2022-0 Yes Univers 0.4 mg 24 2-18 ity of hr capsule 00:00: [place] [facility] tamsulosin 2022-0 Yes Univers 0.4 mg 24 2-18 ity of hr capsule 00:00: [place] [facility] tamsulosin 2022-0 Yes Univers 0.4 mg 24 2-18 ity of hr capsule 00:00: [place] [facility] tamsulosin 2022-0 Yes Univers 0.4 mg 24 2-18 ity of hr capsule 00:00: [place] [facility] tamsulosin 2022-0 Yes Univers 0.4 mg 24 2-18 ity of hr capsule 00:00: [place] [facility] tamsulosin 2-0 Yes Univers 0.4 mg 24 2-18 ity of hr capsule 00:00: [place] [facility] tamsulosin 2-0 Yes Univers 0.4 mg 24 2-18 ity of hr capsule 00:00: [place] [facility] tamsulosin 2-0 Yes Univers 0.4 mg 24 2-18 ity of hr capsule 00:00: [place] [facility] tamsulosin 2-0 Yes Univers 0.4 mg 24 2-18 ity of hr capsule 00:00: [place] [facility] tamsulosin 2-0 Yes Univers 0.4 mg 24 2-18 ity of hr capsule 00:00: [place] [facility] tamsulosin 2021-0 Yes Univers 0.4 mg 24 2-18 ity of hr capsule 00:00: [place] [facility] apixaban 2021-0 Yes Q.5D Take by [facility] i (ELIQUIS) 5 2-[address] mg tablet 12:47: (two) [facility] times a l day. apixaban 2021-0 Yes Q.5D Take by Method i (ELIQUIS) 5 2-[address] mg tablet 12:47: (two) [facility] 04 times a l day. apixaban 2021-0 Yes Q.5D Take by Method i (ELIQUIS) 5 2-[address] mg tablet 12:47: (two) [facility] 04 times a l day. isosorbide 2021-0 2021- No 30mg Take 30 mg Univers mononitrate 12-30 by mouth. it y of 30 mg 24 hr 00:00: 00:00 [place] tablet 00 :00 Medical Branch losartan 25 2021-0 2021- No 25mg Take 25 mg Univers mg tablet 12-30 by mouth. ity of 00:00: 00:00 [place] 00 : Medical Branch spironolact 2021-0 2021- No 25mg Take 25 mg Univers one 25 mg 12-30 by mouth. ity of tablet 00:00: 00:00 [place] 00 :00 Medical Branch amiodarone 2021-0 2021- No 100mg Take 100 U nivers 100 mg 2-11 03-14 mg by ity of tablet 00:00: 00:00 mouth. [place] 00 :00 Medical Branch furosemide 2021-0 2022- No 40mg Take 40 mg Univers 40 mg 12-29-14 by mouth. ity of tablet 00:00: 00:00 [place] 00 :00 Medical Branch metformin 2020-0 Yes [id number] 750mg Take 1 Univers ER 750 mg 6-09 tablet by ity o f 24 hr 00:00: mouth 2 [place] tablet 00 (two) Medical times Branch daily with meals. metformin 2020-0 Yes [id number] 750mg Take 1 Univers ER 750 mg 6-09 tablet by ity o f 24 hr 00:00: mouth 2 [place] tablet 00 (two) Medical times Branch daily with meals. metformin 2020-0 Yes [id number] 750mg Take 1 Univers ER 750 mg 6-09 tablet by ity o f 24 hr 00:00: mouth 2 [place] tablet 00 (two) Medical times Branch daily with meals. metformin 2020-0 Yes [id number] 750mg Take 1 Univers ER 750 mg 6-09 tablet by ity o f 24 hr 00:00: mouth 2 [place] tablet 00 (two) Medical times Branch daily with meals. metformin 2020-0 Yes [id number] 750mg Take 1 Univers ER 750 mg 6-09 tablet by ity o f 24 hr 00:00: mouth 2 [place] tablet 00 (two) Medical times Branch daily with meals. metformin 2020-0 Yes [id number] 750mg Take 1 Univers ER 750 mg 6-09 tablet by ity o f 24 hr 00:00: mouth 2 [place] tablet 00 (two) Medical times Branch daily with meals. metformin 2020-0 Yes [id number] 750mg Take 1 Univers ER 750 mg 6-09 tablet by ity o f 24 hr 00:00: mouth 2 [place] tablet 00 (two) Medical times Branch daily with meals. metformin 2020-0 Yes [id number] 750mg Take 1 Univers ER 750 mg 6-09 tablet by ity o f 24 hr 00:00: mouth 2 [place] tablet 00 (two) Medical times Branch daily with meals. metformin 2020-0 Yes [id number] 750mg Take 1 Univers ER 750 mg 6-09 tablet by ity o f 24 hr 00:00: mouth 2 [place] tablet 00 (two) Medical times Branch daily with meals. metformin 2020-0 Yes [id number] 750mg Take 1 Univers ER 750 mg 6-09 tablet by ity o f 24 hr 00:00: mouth 2 [place] tablet 00 (two) Medical times Branch daily with meals. metformin 2020-0 Yes [id number] 750mg Take 1 Univers ER 750 mg 6-09 tablet by ity o f 24 hr 00:00: mouth 2 [place] tablet 00 (two) Medical times Branch daily with meals. metformin 2020-0 Yes [id number] 750mg Take 1 Univers ER 750 mg 6-09 tablet by ity o f 24 hr 00:00: mouth 2 [place] tablet 00 (two) Medical times Branch daily with meals. metformin 2020-0 2023- No [id number] 750mg Take 1 Univers ER 750 mg 6-12-13 tablet by ity of 24 hr 00:00: 00:00 mouth 2 [place] tablet 00 :00 (two) Medical times Branch daily with meals. metformin 2020-0 2023- No [id number] 750mg Take 1 Univers ER 750 mg 6-12-13 tablet by ity of 24 hr 00:00: 00:00 mouth 2 [place] tablet 00 :00 (two) Medical times Branch daily with meals. ACCU-CHEK 2020-0 Yes [id number] USE TO U nivers FASTCLIX 2-23 CHECK ity of LANCET DRUM 00:00: GLUCOSE [place] Misc 00 ONCE Medical DAILY. Branch DX:E11.9 blood sugar 0 Yes [id number] USE TO Univers diagnostic 2-23 CHECK ity of (ACCU-CHEK 00:00: BLOOD [place] GUIDE TEST 00 SUGAR ONCE Med ical STRIPS) DAILY. Branch strip DX:E11.9 ACCU-CHEK 2020-0 Yes [id number] USE TO U nivers FASTCLIX 2-23 CHECK ity of LANCET DRUM 00:00: GLUCOSE [place] Misc 00 ONCE Medical DAILY. Branch DX:E11.9 blood sugar 2020-0 Yes [id number] USE TO Univers diagnostic 2-23 CHECK ity of (ACCU-CHEK 00:00: BLOOD [place] GUIDE TEST 00 SUGAR ONCE Med ical STRIPS) DAILY. Branch strip DX:E11.9 ACCU-CHEK 2020-0 Yes [id number] USE TO U nivers FASTCLIX 2-23 CHECK ity of LANCET DRUM 00:00: GLUCOSE [place] Misc 00 ONCE Medical DAILY. Branch DX:E11.9 blood sugar 2020-0 Yes [id number] USE TO Univers diagnostic 2-23 CHECK ity of (ACCU-CHEK 00:00: BLOOD [place] GUIDE TEST 00 SUGAR ONCE Med ical STRIPS) DAILY. Branch strip DX:E11.9 ACCU-CHEK 2020-0 Yes [id number] USE TO U nivers FASTCLIX 2-23 CHECK ity of LANCET DRUM 00:00: GLUCOSE [place] Misc 00 ONCE Medical DAILY. Branch DX:E11.9 blood sugar 2020-0 Yes [id number] USE TO Univers diagnostic 2-23 CHECK ity of (ACCU-CHEK 00:00: BLOOD [place] GUIDE TEST 00 SUGAR ONCE Med ical STRIPS) DAILY. Branch strip DX:E11.9 ACCU-CHEK 2020-0 Yes [id number] USE TO U nivers FASTCLIX 2-23 CHECK ity of LANCET DRUM 00:00: GLUCOSE [place] Misc 00 ONCE Medical DAILY. Branch DX:E11.9 blood sugar 2020-0 Yes [id number] USE TO Univers diagnostic 2-23 CHECK ity of (ACCU-CHEK 00:00: BLOOD [place] GUIDE TEST 00 SUGAR ONCE Med ical STRIPS) DAILY. Branch strip DX:E11.9 ACCU-CHEK 2020-0 Yes [id number] USE TO U nivers FASTCLIX 2-23 CHECK ity of LANCET DRUM 00:00: GLUCOSE [place] Misc 00 ONCE Medical DAILY. Branch DX:E11.9 blood sugar 2020-0 Yes [id number] USE TO Univers diagnostic 2-23 CHECK ity of (ACCU-CHEK 00:00: BLOOD [place] GUIDE TEST 00 SUGAR ONCE Med ical STRIPS) DAILY. Branch strip DX:E11.9 ACCU-CHEK 2020-0 Yes [id number] USE TO U nivers FASTCLIX 2-23 CHECK ity of LANCET DRUM 00:00: GLUCOSE [place] Misc 00 ONCE Medical DAILY. Branch DX:E11.9 blood sugar 2020-0 Yes [id number] USE TO Univers diagnostic 2-23 CHECK ity of (ACCU-CHEK 00:00: BLOOD [place] GUIDE TEST 00 SUGAR ONCE Med ical STRIPS) DAILY. Branch strip DX:E11.9 ACCU-CHEK 2020-0 Yes [id number] USE TO U nivers FASTCLIX 2-23 CHECK ity of LANCET DRUM 00:00: GLUCOSE [place] Misc 00 ONCE Medical DAILY. Branch DX:E11.9 blood sugar 2020-0 Yes [id number] USE TO Univers diagnostic 2-23 CHECK ity of (ACCU-CHEK 00:00: BLOOD [place] GUIDE TEST 00 SUGAR ONCE Med ical STRIPS) DAILY. Branch strip DX:E11.9 ACCU-CHEK 2020-0 Yes [id number] USE TO U nivers FASTCLIX 2-23 CHECK ity of LANCET DRUM 00:00: GLUCOSE [place] Misc 00 ONCE Medical DAILY. Branch DX:E11.9 blood sugar 2020-0 Yes [id number] USE TO Univers diagnostic 2-23 CHECK ity of (ACCU-CHEK 00:00: BLOOD [place] GUIDE TEST 00 SUGAR ONCE Med ical STRIPS) DAILY. Branch strip DX:E11.9 ACCU-CHEK 2020-0 Yes [id number] USE TO U nivers FASTCLIX 2-23 CHECK ity of LANCET DRUM 00:00: GLUCOSE [place] Misc 00 ONCE Medical DAILY. Branch DX:E11.9 blood sugar 0 Yes [id number] USE TO Univers diagnostic 2-23 CHECK ity of (ACCU-CHEK 00:00: BLOOD [place] GUIDE TEST 00 SUGAR ONCE Med ical STRIPS) DAILY. Branch strip DX:E11.9 ACCU-CHEK 2020-0 Yes [id number] USE TO U nivers FASTCLIX 2-23 CHECK ity of LANCET DRUM 00:00: GLUCOSE [place] Misc 00 ONCE Medical DAILY. Branch DX:E11.9 blood sugar 2020-0 Yes [id number] USE TO Univers diagnostic 2-23 CHECK ity of (ACCU-CHEK 00:00: BLOOD [place] GUIDE TEST 00 SUGAR ONCE Med ical STRIPS) DAILY. Branch strip DX:E11.9 ACCU-CHEK 2020-0 Yes [id number] USE TO U nivers FASTCLIX 2-23 CHECK ity of LANCET DRUM 00:00: GLUCOSE [place] Misc 00 ONCE Medical DAILY. Branch DX:E11.9 blood sugar 2020-0 Yes [id number] USE TO [facility] diagnostic 2-23 CHECK ity of (ACCU-CHEK 00:00: BLOOD [place] GUIDE TEST 00 SUGAR ONCE Med ical STRIPS) DAILY. Branch strip DX:E11.9 ACCU-CHEK 1-0 Yes [id number] USE TO U nivers FASTCLIX 2-23 CHECK ity of LANCET DRUM 00:00: GLUCOSE [place] Misc 00 ONCE Medical DAILY. Branch DX:E11.9 blood sugar 2020-0 Yes [id number] USE TO [facility] diagnostic 2-23 CHECK ity of (ACCU-CHEK 00:00: BLOOD [place] GUIDE TEST 00 SUGAR ONCE Med ical STRIPS) DAILY. Branch strip DX:E11.9 ACCU-CHEK 2020-0 Yes [id number] USE TO U nivers FASTCLIX 2-23 CHECK ity of LANCET DRUM 00:00: GLUCOSE [place] Misc 00 ONCE Medical DAILY. Branch DX:E11.9 blood sugar 2020-0 Yes [id number] USE TO [facility] diagnostic 2-23 CHECK ity of (ACCU-CHEK 00:00: BLOOD [place] GUIDE TEST 00 SUGAR ONCE Med ical STRIPS) DAILY. Branch strip DX:E11.9 ACCU-CHEK 2020-0 Yes [id number] USE TO U nivers FASTCLIX 2-23 CHECK ity of LANCET DRUM 00:00: GLUCOSE [place] Misc 00 ONCE Medical DAILY. Branch DX:E11.9 blood sugar 2020-0 Yes [id number] USE TO [facility] diagnostic 2-23 CHECK ity of (ACCU-CHEK 00:00: BLOOD [place] GUIDE TEST 00 SUGAR ONCE Med ical STRIPS) DAILY. Branch strip DX:E11.9 ACCU-CHEK 2020-0 Yes [id number] USE TO U nivers FASTCLIX 2-23 CHECK ity of LANCET DRUM 00:00: GLUCOSE [place] Misc 00 ONCE Medical DAILY. Branch DX:E11.9 blood sugar 2020-0 Yes [id number] USE TO [facility] diagnostic 2-23 CHECK ity of (ACCU-CHEK 00:00: BLOOD [place] GUIDE TEST 00 SUGAR ONCE Med ical STRIPS) DAILY. Branch strip DX:E11.9 ACCU-CHEK 2021-0 Yes [id number] USE TO U nivers FASTCLIX 2-23 CHECK ity of LANCET DRUM 00:00: GLUCOSE [place] Misc 00 ONCE Medical DAILY. Branch DX:E11.9 blood sugar 2020-0 Yes [id number] USE TO [facility] diagnostic 2-23 CHECK ity of (ACCU-CHEK 00:00: BLOOD [place] GUIDE TEST 00 SUGAR ONCE Med ical STRIPS) DAILY. Branch strip DX:E11.9 ACCU-CHEK 2020-0 Yes [id number] USE TO U nivers FASTCLIX 2-23 CHECK ity of LANCET DRUM 00:00: GLUCOSE [place] as Misc 00 ONCE Medical DAILY. Branch DX:E11.9 blood sugar 2020-0 Yes [id number] USE TO Univers diagnostic 2-23 CHECK ity of (ACCU-CHEK 00:00: BLOOD [place] GUIDE TEST 00 SUGAR ONCE Med ical STRIPS) DAILY. Branch strip DX:E11.9 ACCU-CHEK 2020-0 Yes [id number] USE TO U nivers FASTCLIX 2-23 CHECK ity of LANCET DRUM 00:00: GLUCOSE [place] as Misc 00 ONCE Medical DAILY. Branch DX:E11.9 blood sugar 0 Yes [id number] USE TO Univers diagnostic 2-23 CHECK ity of (ACCU-CHEK 00:00: BLOOD [place] GUIDE TEST 00 SUGAR ONCE Med ical STRIPS) DAILY. Branch strip DX:E11.9 ACCU-CHEK 2020-0 Yes [id number] USE TO U nivers FASTCLIX 2-23 CHECK ity of LANCET DRUM 00:00: GLUCOSE [place] as Misc 00 ONCE Medical DAILY. Branch DX:E11.9 blood sugar 2020-0 Yes [id number] USE TO Univers diagnostic 2-23 CHECK ity of (ACCU-CHEK 00:00: BLOOD [place] GUIDE TEST 00 SUGAR ONCE Med ical STRIPS) DAILY. Branch strip DX:E11.9 ACCU-CHEK 2020-0 Yes [id number] USE TO U nivers FASTCLIX 2-23 CHECK ity of LANCET DRUM 00:00: GLUCOSE [place] as Misc 00 ONCE Medical DAILY. Branch DX:E11.9 blood sugar 2020-0 Yes [id number] USE TO Univers diagnostic 2-23 CHECK ity of (ACCU-CHEK 00:00: BLOOD [place] GUIDE TEST 00 SUGAR ONCE Med ical STRIPS) DAILY. Branch strip DX:E11.9 ACCU-CHEK 2020-0 Yes [id number] USE TO U nivers FASTCLIX 2-23 CHECK ity of LANCET DRUM 00:00: GLUCOSE [place] as Misc 00 ONCE Medical DAILY. Branch DX:E11.9 blood sugar 2020-0 Yes [id number] USE TO Univers diagnostic 2-23 CHECK ity of (ACCU-CHEK 00:00: BLOOD [place] GUIDE TEST 00 SUGAR ONCE Med ical STRIPS) DAILY. Branch strip DX:E11.9 ACCU-CHEK 2020-0 Yes [id number] USE TO U nivers FASTCLIX 2-23 CHECK ity of LANCET DRUM 00:00: GLUCOSE [place] as Misc 00 ONCE Medical DAILY. Branch DX:E11.9 blood sugar 2020-0 Yes [id number] USE TO Univers diagnostic 2-23 CHECK ity of (ACCU-CHEK 00:00: BLOOD [place] GUIDE TEST 00 SUGAR ONCE Med ical STRIPS) DAILY. Branch strip DX:E11.9 ACCU-CHEK 2020-0 Yes [id number] USE TO U nivers FASTCLIX 2-23 CHECK ity of LANCET DRUM 00:00: GLUCOSE [place] as Misc 00 ONCE Medical DAILY. Branch DX:E11.9 blood sugar 2020-0 Yes [id number] USE TO Univers diagnostic 2-23 CHECK ity of (ACCU-CHEK 00:00: BLOOD [place] GUIDE TEST 00 SUGAR ONCE Med ical STRIPS) DAILY. Branch strip DX:E11.9 ACCU-CHEK 2020-0 Yes [id number] USE TO U nivers FASTCLIX 2-23 CHECK ity of LANCET DRUM 00:00: GLUCOSE [place] as Misc 00 ONCE Medical DAILY. Branch DX:E11.9 blood sugar 2020-0 Yes [id number] USE TO Univers diagnostic 2-23 CHECK ity of (ACCU-CHEK 00:00: BLOOD [place] GUIDE TEST 00 SUGAR ONCE Med ical STRIPS) DAILY. Branch strip DX:E11.9 ACCU-CHEK 2020-0 Yes [id number] USE TO U nivers FASTCLIX 2-23 CHECK ity of LANCET DRUM 00:00: GLUCOSE [place] as Misc 00 ONCE Medical DAILY. Branch DX:E11.9 blood sugar 2020-0 Yes [id number] USE TO Univers diagnostic 2-23 CHECK ity of (ACCU-CHEK 00:00: BLOOD [place] GUIDE TEST 00 SUGAR ONCE Med ical STRIPS) DAILY. Branch strip DX:E11.9 ACCU-CHEK 2020-0 Yes [id number] USE TO U nivers FASTCLIX 2-23 CHECK ity of LANCET DRUM 00:00: GLUCOSE [place] as Misc 00 ONCE Medical DAILY. Branch DX:E11.9 blood sugar 2020-0 Yes [id number] USE TO Univers diagnostic 2-23 CHECK ity of (ACCU-CHEK 00:00: BLOOD [place] GUIDE TEST 00 SUGAR ONCE Med ical STRIPS) DAILY. Branch strip DX:E11.9 ACCU-CHEK 2020-0 Yes [id number] USE TO U nivers FASTCLIX 2-23 CHECK ity of LANCET DRUM 00:00: GLUCOSE [place] as Misc 00 ONCE Medical DAILY. Branch DX:E11.9 blood sugar 0 Yes [id number] USE TO Univers diagnostic 2-23 CHECK ity of (ACCU-CHEK 00:00: BLOOD [place] GUIDE TEST 00 SUGAR ONCE Med ical STRIPS) DAILY. Branch strip DX:E11.9 ACCU-CHEK 2020-0 Yes [id number] USE TO U nivers FASTCLIX 2-23 CHECK ity of LANCET DRUM 00:00: GLUCOSE [place] as Misc 00 ONCE Medical DAILY. Branch DX:E11.9 blood sugar 0 Yes [id number] USE TO Univers diagnostic 2-23 CHECK ity of (ACCU-CHEK 00:00: BLOOD [place] GUIDE TEST 00 SUGAR ONCE Med ical STRIPS) DAILY. Branch strip DX:E11.9 metoprolol 2019-11 Yes Univers tartrate 50 0-26 ity of mg tablet 00:00: [place] 00 Medical Branch metoprolol 2019-11- No Univer s tartrate 50 0-26 03-14 ity of mg tablet 00:00: 00:00 [place] 00 :00 Medical Branch aspirin 81 2019-0 Yes 81mg Take 81 mg U nivers mg chewable 7-30 by mouth ity of tablet 14:25: daily. [place] 22 [facility] Branch metoprolol Yes 50mg QD Take 50 mg M ethodi tartrate 8-[address] (LOPRESSOR) 00:00: daily. [facility] 50 MG 00 l tablet levothyroxi Yes 75ug QD Take 75 Met hodi ne 8-[address] (SYNTHROID, 00:00: mouth Hospi ta LEVOTHROID) 00 every l 75 MCG morning. tablet metoprolol 0 Yes 50mg QD Take 50 mg M ethodi tartrate 8-[address] (LOPRESSOR) 00:00: daily. [facility] 50 MG 00 l tablet levothyroxi 0 Yes 75ug QD Take 75 Met hodi ne 8-[address] (SYNTHROID, 00:00: mouth Hospi ta LEVOTHROID) 00 every l 75 MCG morning. tablet metoprolol 0 Yes 50mg QD Take 50 mg M ethodi tartrate 8-[address] (LOPRESSOR) 00:00: daily. [facility] 50 MG 00 l tablet levothyroxi Yes 75ug QD Take 75 Met hodi ne 8-[address] (SYNTHROID, 00:00: mouth Hospi ta LEVOTHROID) 00 every l 75 MCG morning. tablet levothyroxi 0 Yes Mai kellogg 9-05 ity of (SYNTHROID) 00:00: [place] 75 mcg 00 Medical tablet Branch levothyroxi 2014-0 Yes Mai eaton ne 9-05 ity of (SYNTHROID) 00:00: [place] 75 mcg 00 Medical tablet Branch levothyroxi 2014-0 Yes Mai eaton ne 9-05 ity of (SYNTHROID) 00:00: [place] 75 mcg 00 Medical tablet Branch levothyroxi 2014-0 Yes Mai eaton ne 9-05 ity of (SYNTHROID) 00:00: [place] 75 mcg 00 Medical tablet Branch levothyroxi 2014-0 Yes Mai eaton ne 9-05 ity of (SYNTHROID) 00:00: [place] 75 mcg 00 Medical tablet Branch levothyroxi 2014-0 Yes Mai eaton ne 9-05 ity of (SYNTHROID) 00:00: [place] 75 mcg 00 Medical tablet Branch levothyroxi 2014-0 Yes Mai eaton ne 9-05 ity of (SYNTHROID) 00:00: [place] 75 mcg 00 Medical tablet Branch levothyroxi 2014-0 Yes Mai eaton ne 9-05 ity of (SYNTHROID) 00:00: [place] 75 mcg 00 Medical tablet Branch levothyroxi 2014-0 Yes Mai eaton ne 9-05 ity of (SYNTHROID) 00:00: [place] 75 mcg 00 Medical tablet Branch levothyroxi 2014-0 Yes Mai eaton ne 9-05 ity of (SYNTHROID) 00:00: [place] 75 mcg 00 Medical tablet Branch levothyroxi 2014-0 Yes Mai eaton ne 9-05 ity of (SYNTHROID) 00:00: [place] 75 mcg 00 Medical tablet Branch levothyroxi 2014-0 Yes Mai eaton ne 9-05 ity of (SYNTHROID) 00:00: [place] 75 mcg 00 Medical tablet Branch levothyroxi 2014-0 Yes Mai eaton ne 9-05 ity of (SYNTHROID) 00:00: [place] 75 mcg 00 Medical tablet Branch levothyroxi 2014-0 Yes Mai eaton ne 9-05 ity of (SYNTHROID) 00:00: [place] 75 mcg 00 Medical tablet Branch levothyroxi 2014-0 Yes Mai eaton ne 9-05 ity of (SYNTHROID) 00:00: [place] 75 mcg 00 Medical tablet Branch levothyroxi 2014-0 Yes Mai eaton ne 9-05 ity of (SYNTHROID) 00:00: [place] 75 mcg 00 Medical tablet Branch levothyroxi 2014-0 Yes Mai kellogg 9-05 ity of (SYNTHROID) 00:00: [place] 75 mcg 00 Medical tablet Branch levothyroxi 2014-0 Yes Mai eaton ne 9-05 ity of (SYNTHROID) 00:00: [place] 75 mcg 00 Medical tablet Branch levothyroxi 2014-0 Yes Mai eaton ne 9-05 ity of (SYNTHROID) 00:00: [place] 75 mcg 00 Medical tablet Branch levothyroxi 2014-0 Yes Mai eaton ne 9-05 ity of (SYNTHROID) 00:00: [place] 75 mcg 00 Medical tablet Branch levothyroxi 2014-0 Yes Mai eaton ne 9-05 ity of (SYNTHROID) 00:00: [place] 75 mcg 00 Medical tablet Branch levothyroxi 2014-0 Yes Mai eaton ne 9-05 ity of (SYNTHROID) 00:00: [place] 75 mcg 00 Medical tablet Branch levothyroxi 2014-0 Yes Mai eaton ne 9-05 ity of (SYNTHROID) 00:00: [place] 75 mcg 00 Medical tablet Branch levothyroxi 2014-0 Yes Mai eaton ne 9-05 ity of (SYNTHROID) 00:00: [place] 75 mcg 00 Medical tablet Branch levothyroxi Yes Univer s ne 9-05 ity of (SYNTHROID) 00:00: [place] 75 mcg 00 Medical tablet Branch levothyroxi Yes Univer s ne 9-05 ity of (SYNTHROID) 00:00: [place] 75 mcg 00 Medical tablet Branch levothyroxi Yes Univer s ne 9-05 ity of (SYNTHROID) 00:00: [place] 75 mcg 00 Medical tablet Branch levothyroxi Yes Univer s ne 9-05 ity of (SYNTHROID) 00:00: [place] 75 mcg 00 Medical tablet Branch levothyroxi Yes Univer s ne 9-05 ity of (SYNTHROID) 00:00: [place] 75 mcg 00 Medical tablet Branch metoprolol Yes Univers succinate 7-23 ity of XL (TOPROL 00:00: [place] XL) 50 mg 00 Medical 24 hr Branch tablet metoprolol Yes Univers succinate 7-23 ity of XL (TOPROL 00:00: [place] XL) 50 mg 00 Medical 24 hr Branch tablet metoprolol Yes Univers succinate 7-23 ity of XL (TOPROL 00:00: [place] XL) 50 mg 00 Medical 24 hr Branch tablet metoprolol 2021- No Univer s succinate 7-23 04-22 ity of XL (TOPROL 00:00: 00:00 [place] XL) 50 mg 00 :00 Medical 24 hr Branch tablet Potassium Potassium No Potassium Chloride Chloride Chloride Amoxicillin Amoxicillin No Amoxicilli n Eliquis 5 Eliquis 5 No 1{table Eliquis 5 MG MG t} MG Tamsulosin Tamsulosin No 1{capsu QD Tamsulosin HCl 0.4 MG HCl 0.4 MG le} HCl 0.4 MG Levothyroxi Levothyroxi No Levothyrox ne Sodium ne Sodium ine Sodium 75 MCG 75 MCG 75 MCG Metformin Metformin No 1{table QD Metformin HCl 500 MG HCl 500 MG t_with_ HCl 500 MG a_meal} Furosemide Furosemide No 1{table Furosemide 40 MG 40 MG t} 40 MG Metoprolol Metoprolol No 1{table Metoprolol Tartrate 25 Tartrate 25 t_with_ Tartrate MG MG food} 25 MG Immunizations Ordered Filled Immunization Date Status Comments [facility] e Immunization Name Name TDAP 2022-04-22 [facility] 00:00:00 [facility] TD 2022-04-22 Completed University of 00:00:00 [place] [facility] TDAP 2022-04-22 Completed University of 00:00:00 [place] [facility] TDAP 2022-04-22 Completed University of 00:00:00 [place] [facility] TDAP 2022-04-22 Completed University of 00:00:00 [facility] TDAP 2022-04-22 Completed University of 00:00:00 [facility] TDAP 2022-04-22 Completed University of 00:00:00 [facility] Branch TDAP 2022-04-22 Completed University of 00:00:00 [facility] TDAP 2022-04-22 Completed University of 00:00:00 [facility] TDAP 2022-04-22 Completed University of 00:00:00 [facility] TDAP 2022-04-22 Completed University of 00:00:00 [facility] TDAP 2022-04-22 Completed University of 00:00:00 [facility] TDAP 2022-04-22 Completed University of 00:00:00 [facility] TDAP 2022-04-22 Completed University of 00:00:00 [facility] TDAP 2022-04-22 Completed University of 00:00:00 [facility] TDAP 2022-04-22 Completed University of 00:00:00 [facility] TDAP 2022-04-22 Completed University of 00:00:00 [facility] TDAP 2022-04-22 Completed University of 00:00:00 [facility] TDAP 2022-04-22 Completed University of 00:00:00 [facility] TDAP 2022-04-22 Completed University of 00:00:00 [facility] TDAP 2022-04-22 Completed University of 00:00:00 [facility] TDAP 2022-04-22 Completed University of 00:00:00 [facility] TDAP 2022-04-22 Completed University of 00:00:00 [facility] TDAP 2022-04-22 Completed University of 00:00:00 [facility] SARS-COV-2 COVID-19 2020-12-22 Completed Unive rsity of MODERNA VACCINE 00:00:00 [facility] SARS-COV-2 COVID-19 2020-12-22 Completed Unive rsity of MODERNA VACCINE 00:00:00 [place] Med ical Branch SARS-COV-2 COVID-19 2020-12-22 Completed Unive rsity of MODERNA VACCINE 00:00:00 [place] Med ical Branch SARS-COV-2 COVID-19 2020-12-22 Completed Unive rsity of MODERNA VACCINE 00:00:00 [place] Med ical Branch SARS-COV-2 COVID-19 2020-12-22 Completed Unive rsity of MODERNA VACCINE 00:00:00 [place] Med ical Branch SARS-COV-2 COVID-19 2020-12-22 Completed Unive rsity of MODERNA 12+ YRS 00:00:00 [place] Med ical VACCINE Branch SARS-COV-2 COVID-19 2020-12-22 Completed Unive rsity of MODERNA 12+ YRS 00:00:00 [place] Med ical VACCINE Branch SARS-COV-2 COVID-19 2020-12-22 Completed Unive rsity of MODERNA 12+ YRS 00:00:00 [place] Med ical VACCINE Branch SARS-COV-2 COVID-19 2020-12-22 Completed Unive rsity of MODERNA 12+ YRS 00:00:00 [place] Med ical VACCINE Branch SARS-COV-2 COVID-19 2020-12-22 Completed Unive rsity of MODERNA 12+ YRS 00:00:00 [place] Med ical VACCINE Branch SARS-COV-2 COVID-19 2020-12-22 Completed Unive rsity of MODERNA 12+ YRS 00:00:00 [place] Med ical VACCINE Branch SARS-COV-2 COVID-19 2020-12-22 Completed Unive rsity of MODERNA 12+ YRS 00:00:00 [place] Med ical VACCINE Branch SARS-COV-2 COVID-19 2020-12-22 Completed Unive rsity of MODERNA 12+ YRS 00:00:00 [place] Med ical VACCINE Branch SARS-COV-2 COVID-19 2020-12-22 Completed Unive rsity of MODERNA 12+ YRS 00:00:00 [place] Med ical VACCINE Branch SARS-COV-2 COVID-19 2020-12-22 Completed Unive rsity of MODERNA 12+ YRS 00:00:00 [place] Med ical VACCINE Branch SARS-COV-2 COVID-19 2020-12-22 Completed Unive rsity of MODERNA 12+ YRS 00:00:00 [place] Med ical VACCINE Branch SARS-COV-2 COVID-19 2020-12-22 Completed Unive rsity of MODERNA 12+ YRS 00:00:00 [place] Med ical VACCINE Branch SARS-COV-2 COVID-19 2020-12-22 Completed Unive rsity of MODERNA VACCINE 00:00:00 [place] Med ical Branch SARS-COV-2 COVID-19 2020-12-22 Completed Unive rsity of MODERNA 12+ YRS 00:00:00 [place] Med ical VACCINE Branch SARS-COV-2 COVID-19 2020-12-22 Completed Unive rsity of MODERNA 12+ YRS 00:00:00 [place] Med ical VACCINE Branch SARS-COV-2 COVID-19 2020-12-22 Completed Unive rsity of MODERNA 12+ YRS 00:00:00 [place] Med ical VACCINE Branch SARS-COV-2 COVID-19 2020-12-22 Completed Unive rsity of MODERNA 12+ YRS 00:00:00 [place] Med ical VACCINE Branch SARS-COV-2 COVID-19 2020-12-22 Completed Unive rsity of MODERNA 12+ YRS 00:00:00 [place] Med ical VACCINE Branch SARS-COV-2 COVID-19 2020-12-22 Completed Unive rsity of MODERNA 12+ YRS 00:00:00 [place] Med ical VACCINE Branch SARS-COV-2 COVID-19 2020-12-22 Completed Unive rsity of MODERNA 12+ YRS 00:00:00 [place] Med ical VACCINE Branch SARS-COV-2 COVID-19 2020-12-22 Completed Unive rsity of MODERNA 12+ YRS 00:00:00 [place] Med ical VACCINE Branch SARS-COV-2 COVID-19 2020-12-22 Completed Unive rsity of MODERNA 12+ YRS 00:00:00 [place] Med ical VACCINE Branch SARS-COV-2 COVID-19 2020-12-22 Completed Unive rsity of MODERNA 12+ YRS 00:00:00 [place] Med ical VACCINE Branch SARS-COV-2 COVID-19 2020-12-22 Completed Unive rsity of MODERNA 12+ YRS 00:00:00 [place] Med ical VACCINE Branch SARS-COV-2 COVID-19 2020-11-24 Completed Unive rsity of MODERNA VACCINE 00:00:00 [place] Med ical Branch SARS-COV-2 COVID-19 2020-11-24 Completed Unive rsity of MODERNA VACCINE 00:00:00 [place] Med ical Branch SARS-COV-2 COVID-19 2020-11-24 Completed Unive rsity of MODERNA VACCINE 00:00:00 [place] Med ical Branch SARS-COV-2 COVID-19 2020-11-24 Completed Unive rsity of MODERNA VACCINE 00:00:00 [place] Med ical Branch SARS-COV-2 COVID-19 2020-11-24 Completed Unive rsity of MODERNA VACCINE 00:00:00 [place] Med ical Branch SARS-COV-2 COVID-19 2020-11-24 Completed Unive rsity of MODERNA 12+ YRS 00:00:00 [place] Med ical VACCINE Branch SARS-COV-2 COVID-19 2020-11-24 Completed Unive rsity of MODERNA 12+ YRS 00:00:00 [place] Med ical VACCINE Branch SARS-COV-2 COVID-19 2020-11-24 Completed Unive rsity of MODERNA 12+ YRS 00:00:00 [place] Med ical VACCINE Branch SARS-COV-2 COVID-19 2020-11-24 Completed Unive rsity of MODERNA 12+ YRS 00:00:00 [place] Med ical VACCINE Branch SARS-COV-2 COVID-19 2020-11-24 Completed Unive rsity of MODERNA 12+ YRS 00:00:00 [place] Med ical VACCINE Branch SARS-COV-2 COVID-19 2020-11-24 Completed Unive rsity of MODERNA 12+ YRS 00:00:00 [place] Med ical VACCINE Branch SARS-COV-2 COVID-19 2020-11-24 Completed Unive rsity of MODERNA 12+ YRS 00:00:00 [place] Med ical VACCINE Branch SARS-COV-2 COVID-19 2020-11-24 Completed Unive rsity of MODERNA 12+ YRS 00:00:00 [place] Med ical VACCINE Branch SARS-COV-2 COVID-19 2020-11-24 Completed Unive rsity of MODERNA 12+ YRS 00:00:00 [place] Med ical VACCINE Branch SARS-COV-2 COVID-19 2020-11-24 Completed Unive rsity of MODERNA 12+ YRS 00:00:00 [place] Med ical VACCINE Branch SARS-COV-2 COVID-19 2020-11-24 Completed Unive rsity of MODERNA 12+ YRS 00:00:00 [place] Med ical VACCINE Branch SARS-COV-2 COVID-19 2020-11-24 Completed Unive rsity of MODERNA VACCINE 00:00:00 [place] Med ical Branch SARS-COV-2 COVID-19 2020-11-24 Completed Unive rsity of MODERNA 12+ YRS 00:00:00 [place] Med ical VACCINE Branch SARS-COV-2 COVID-19 2020-11-24 Completed Unive rsity of MODERNA 12+ YRS 00:00:00 [place] Med ical VACCINE Branch SARS-COV-2 COVID-19 2020-11-24 Completed Unive rsity of MODERNA 12+ YRS 00:00:00 [place] Med ical VACCINE Branch SARS-COV-2 COVID-19 2020-11-24 Completed Unive rsity of MODERNA 12+ YRS 00:00:00 [place] Med ical VACCINE Branch SARS-COV-2 COVID-19 2020-11-24 Completed Unive rsity of MODERNA 12+ YRS 00:00:00 [place] Med ical VACCINE Branch SARS-COV-2 COVID-19 2020-11-24 Completed Unive rsity of MODERNA 12+ YRS 00:00:00 [place] Med ical VACCINE Branch SARS-COV-2 COVID-19 2020-11-24 Completed Unive rsity of MODERNA 12+ YRS 00:00:00 [place] Med ical VACCINE Branch SARS-COV-2 COVID-19 2020-11-24 Completed Unive rsity of MODERNA 12+ YRS 00:00:00 [place] Med ical VACCINE Branch SARS-COV-2 COVID-19 2020-11-24 Completed Unive rsity of MODERNA 12+ YRS 00:00:00 [place] Med ical VACCINE Branch SARS-COV-2 COVID-19 2020-11-24 Completed Unive rsity of MODERNA 12+ YRS 00:00:00 [place] Med ical VACCINE Branch SARS-COV-2 COVID-19 2020-11-24 Completed Unive rsity of MODERNA 12+ YRS 00:00:00 [facility] VACCINE Branch SARS-COV-2 COVID-19 2020-11-24 Completed Unive rsity of MODERNA 12+ YRS 00:00:00 [facility] VACCINE [place] Vital Signs Vital Name Observation Time Observation Value Comments Source Systolic blood 2023-01-03 16:13:00 132 mm[Hg] Univer sity of pressure [facility] Diastolic blood 2023-01-03 16:13:00 76 mm[Hg] Unive rsity of [facility] Heart rate 2023-01-03 16:13:00 88 /min Universi ty [facility] Respiratory rate 2023-01-03 16:13:00 18 /min [facility] Body height 2023-01-03 16:13:00 172.7 cm Universi [facility] Body weight 2023-01-03 16:13:00 80.287 kg [facility] BMI 2023-01-03 16:13:00 26.91 kg/m2 Universi [facility] Systolic blood 2022-12-13 18:50:00 129 mm[Hg] Univer sity of [facility] Diastolic blood 2022-12-13 18:50:00 79 mm[Hg] Unive rsity of [facility] Heart rate 2022-12-13 18:50:00 90 /min Universi ty [facility] Body temperature 2022-12-13 18:50:00 36.67 [place] [facility] Respiratory rate 2022-12-13 18:50:00 17 /min [facility] Body weight 2022-12-13 18:50:00 80.513 kg Universi [facility] BMI 2022-12-13 18:50:00 26.99 kg/m2 [facility] Oxygen saturation in 2022-12-13 18:50:00 97 /min [facility] Arterial blood by [facility] Pulse oximetry Branch height 2022-11-14 09:15:00 68 [in_i] [facility] weight 2022-11-14 09:15:00 173 [lb_av] [facility] temperature 2022-11-14 09:15:00 98.3 [degF] [facility] bmi 2022-11-14 09:15:00 26.3 kg/m2 [facility] oximetry 2022-11-14 09:15:00 95 % [facility] blood pressure 2022-11-14 09:15:00 126 mm[Hg] [facility] systolic [facility] blood pressure 2022-11-14 09:15:00 74 mm[Hg] [facility] diastolic [facility] Systolic blood 2022-10-31 14:47:00 137 mm[Hg] Univer sity of [facility] Diastolic blood 2022-10-31 14:47:00 89 mm[Hg] Unive rsity of [facility] Heart rate 2022-10-31 14:47:00 100 /min Universi ty of [facility] Body height 2022-10-31 14:47:00 172.7 cm Universi ty of [facility] Body weight 2022-10-31 14:47:00 78.654 kg Universi ty of [facility] BMI 2022-10-31 14:47:00 26.37 kg/m2 Universi ty [facility] Oxygen saturation in 2022-10-31 14:47:00 95 /min University of Arterial blood by [facility] Pulse oximetry Branch Systolic blood 2022-09-18 19:11:37 124 mm[Hg] Univer sity of [facility] Diastolic blood 2022-09-18 19:11:37 98 mm[Hg] Unive rsity of [facility] Heart rate 2022-09-18 19:11:37 95 /min Universi ty of [facility] Respiratory rate 2022-09-18 19:11:37 17 /min Univ ersity of [facility] Oxygen saturation in 2022-09-18 19:11:37 95 /min University of Arterial blood by [facility] Pulse oximetry Branch Body temperature 2022-09-18 15:23:00 36.67 [place] Univ ersity of [facility] Body weight 2022-09-18 15:23:00 79.379 kg Universi ty of [facility] BMI 2022-09-18 15:23:00 26.61 kg/m2 Universi ty of [place] [facility] Systolic blood 2022-09-18 14:48:00 114 mm[Hg] Univer sity of pressure [place] [facility] Diastolic blood 2022-09-18 14:48:00 64 mm[Hg] Unive rsity of pressure [place] [facility] Heart rate 2022-09-18 14:48:00 61 /min Universi ty of [place] [facility] Body temperature 2022-09-18 14:48:00 36.78 [place] Univ ersity of [place] [facility] Respiratory rate 2022-09-18 14:48:00 16 /min Univ ersity of [place] [facility] Body weight 2022-09-18 14:48:00 79.833 kg Universi ty of [place] [facility] BMI 2022-09-18 14:48:00 26.76 kg/m2 Universi ty of [place] [facility] Oxygen saturation in 2022-09-18 14:48:00 98 /min University of Arterial blood by [place] [facility] Pulse oximetry Branch Systolic blood 2022-04-22 17:45:00 101 mm[Hg] Univer sity of pressure [place] [facility] Diastolic blood 2022-04-22 17:45:00 65 mm[Hg] Unive rsity of pressure [place] [facility] Heart rate 2022-04-22 17:45:00 66 /min Universi ty of [place] [facility] Body temperature 2022-04-22 17:45:00 36.61 [place] Univ ersity of [place] [facility] Respiratory rate 2022-04-22 17:45:00 19 /min Univ ersity of [place] [facility] Body height 2022-04-22 17:45:00 172.7 cm Universi ty of [place] [facility] Body weight 2022-04-22 17:45:00 76.749 kg Universi ty [facility] [place] [facility] BMI 2022-04-22 17:45:00 25.73 kg/m2 Universi ty [facility] [place] [facility] Oxygen saturation in 2022-04-22 17:45:00 96 /min University of Arterial blood by [place] [facility] joo Pulse oximetry Branch Oxygen saturation in 2022-03-09 13:33:00 94 /min University of Arterial blood by [place] [facility] Pulse oximetry Branch Heart rate 2022-03-09 13:32:00 82 /min Universi ty of [place] [facility] Systolic blood 2022-03-09 12:36:00 129 mm[Hg] Univer sity of pressure [facility] Diastolic blood 2022-03-09 12:36:00 87 mm[Hg] Unive rsity of [facility] Body temperature 2022-03-09 12:36:00 35.78 [place] [facility] Respiratory rate 2022-03-09 12:36:00 18 /min Univ ersity of [facility] Body weight 2022-03-09 08:40:00 80.468 kg Universi ty of [facility] BMI 2022-03-09 08:40:00 26.97 kg/m2 Universi ty of [facility] Body height 2022-03-08 18:58:00 172.7 cm Universi ty of [facility] Body weight 2022-01-29 17:00:00 75.978 kg Universi ty of [facility] BMI 2022-01-29 17:00:00 25.47 kg/m2 Universi ty of [facility] Systolic blood 2022-01-29 16:29:00 118 mm[Hg] Univer sity of [facility] Diastolic blood 2022-01-29 16:29:00 81 mm[Hg] Unive rsity of [facility] Heart rate 2022-01-29 16:29:00 81 /min Universi ty of [facility] Body temperature 2022-01-29 16:29:00 36.06 [facility] Respiratory rate 2022-01-29 16:29:00 16 /[facility] Oxygen saturation in 2022-01-29 16:29:00 94 /min [facility] Arterial blood by [facility] Pulse oximetry Branch Body height 2022 04:39:00 172.7 cm Universi ty [facility] Procedures Procedure Date / Time Performing Clinician Source Performed [id number] 2023-06-03 00:00:00 CHAAB.01 H[facility] Jenni [facility] [id number] 2023-06-03 00:00:00 CHAAB.01 [facility] Jenni [facility] AUTHORIZATION FOR RELEASE 2023-02-21 05:01:00 Doctor Unassigned, [facility] [place] [facility] HB ECG ROUTINE & RHYTHM 2023-01-03 16:09:33 Pedrito Zavaleta [facility] STRIP [facility] EXTERNAL PROVIDER - ADC 2022-12-14 06:01:00 Doctor Unasspineda [facility] THYROID STIMULATING 2022-12-13 19:49:00 Jarrell Cota [facility] HORMONE [facility] MAGNESIUM 2022-12-13 19:49:00 Jarrell Cota [facility] COMP. METABOLIC PANEL 2022-12-13 19:49:00 Jarrell Cota [facility] ([id number]) [facility] CBC WITH DIFF 2022-12-13 19:49:00 Jarrell Cota [facility] N-TERMINAL PRO-BNP 2022-12-13 19:49:00 Jarrell Cota [facility] AUTHORIZATION TO RELEASE 2022-10-31 06:01:00 Doctor Dhiraj, [facility] PHI TO [facility] [place] [facility] [place] [address] ABDOMEN PELVIS WO 2022-09-18 17:32:37 Georgia Maria [facility] CONTRAST [facility] HEPATIC FUNCTION PANEL 2022-09-18 16:35:00 Georgia Maria [facility] ([id number]) (ALB,T.PRO,BILI Medical Branch T,BU/BC,ALT,AST,ALK PHOS) BASIC METABOLIC PANEL 2022-09-18 16:35:00 Georgia Maria [facility] (NA, K, CL, CO2, GLUCOSE, Medica l Branch BUN, CREATININE, CA) CBC WITH DIFF 2022-09-18 16:35:00 Georgia Maria [facility] URINALYSIS 2022-09-18 16:35:00 Georgia Maria [facility] CONSENT/REFUSAL FOR 2022-09-18 15:19:35 Doctor Dhiraj, [facility] DIAGNOSIS AND TREATMENT [facility] TDAP VACCINE, >11 YRS, IM 2022-04-22 18:19:39 Fuda Rodriguez [facility] POCT GLUCOSE (AUTOMATED) 2022-03-09 16:17:00 Sheldon Suarez [facility] POCT GLUCOSE (AUTOMATED) 2022-03-09 12:37:00 Sheldon Suarez [facility] BASIC METABOLIC PANEL 2022-03-09 08:45:00 [facility] (NA, K, CL, CO2, GLUCOSE, Medica l Branch BUN, CREATININE, CA) CBC WITH DIFF 2022-03-09 08:45:00 Wilmer [facility] N-TERMINAL PRO-BNP 2022-03-09 08:45:00 Mauro Olmos [facility] POCT GLUCOSE (AUTOMATED) 2022-03-09 01:30:00 Sheldon Suarez [facility] POCT GLUCOSE (AUTOMATED) 2022-03-08 21:56:00 Sheldon Suarez [facility] TRANSTHORACIC ECHO (TTE) 2022-03-08 18:58:36 Sheldon Suarez [facility] POCT GLUCOSE (AUTOMATED) 2022-03-08 16:54:00 Sheldon Suarez [facility] ACUTE CARE VENOUS BLOOD 2022-03-08 10:38:00 Sheldon Suarez [facility] GAS [facility] VITAMIN B12, LEVEL 2022-03-08 10:37:00 Sheldon Suarez [facility] PROCALCITONIN 2022-03-08 10:37:00 Sheldon Suarez [facility] PHOSPHORUS 2022-03-08 10:30:00 [facility]a [facility] MAGNESIUM 2022-03-08 10:30:00 Daniela [facility] TROPONIN I 2022-03-08 10:30:00 Daniela [facility] COMP. METABOLIC PANEL 2022-03-08 10:30:00 Sheldon Suarez [facility] ([id number]) [facility] [place] CBC WITH DIFF 2022-03-08 10:30:00 Daniela [facility] N-TERMINAL PRO-BNP 2022-03-08 10:30:00 Sheldon Suarez [facility] VITAMIN D, 25-OH 2022-03-08 10:30:00 Daniela [facility] CRITICAL CARE 2022-03-08 03:50:14 Quintin Terrazas [facility] CT CHEST PULMONARY 2022-03-08 02:55:48 Quintin Terrazas [facility] ANGIOGRAM Medical Branch XR CHEST 1 VW 2022-03-08 01:55:13 Quintin Terrazas [facility] URINALYSIS 2022-03-08 01:47:00 Quintin Terrazas [facility] URINE CULTURE 2022-03-08 01:47:00 Quintin Terrazas [facility] HB ECG ROUTINE & RHYTHM 2022-03-08 01:32:41 Quintin Terrazas [facility] [place] THROAT CULTURE 2022-03-08 01:32:00 Quintin Terrazas [facility] acute hospital RAPID STREP SCREEN FOR 2022-03-08 01:32:00 Quintin Terrazas [facility] GROUP A [facility] RAPID INFLUENZA A/B 2022-03-08 01:32:00 Quintin Terrazas [facility] COVID-19 (ID NOW RAPID 2022-03-08 01:32:00 Quintin Terrazas [facility] TESTING) Medical Branch LAB ONLY COVID 2022-03-08 01:32:00 Quintin Terrazas [facility] INTERPRETATION [facility] LACTIC ACID WHOLE BLOOD 2022-03-08 01:26:00 Quintin [facility]razas [facility] BLOOD CULTURE SCREEN 2022-03-08 01:24:00 Quintin Terrazas [facility] BLOOD CULTURE SCREEN 2022-03-08 01:23:00 Quintin Terrazas [facility] PHOSPHORUS 2022-03-08 01:23:00 Daniela [facility] URIC ACID 2022-03-08 01:23:00 Daniela [facility] MAGNESIUM 2022-03-08 01:23:00 Quintin Terrazas [facility] acute hospital FERRITIN SERUM 2022-03-08 01:23:00 Daniela [facility] TROPONIN I 2022-03-08 01:23:00 Quintin Terrazas [facility] acute hospital THYROID STIMULATING 2022-03-08 01:23:00 Sheldon Suarez [facility] HORMONE Medical Branch COMP. METABOLIC PANEL 2022-03-08 01:23:00 Quintin Terrazas [facility] ([id number]) Medical Branch LIPID PANEL ([id number])(TOTAL 2022-03-08 01:23:00 Sheldon Suarez [facility] CHOLESTEROL, [facility] TRIGLYCERIDES, HDL) IRON PANEL 2022-03-08 01:23:00 [facility]a [facility] CBC WITH DIFF 2022-03-08 01:23:00 Quintni Terrazas [facility] acute hospital GLYCOSYLATED HEMOGLOBIN 2022-03-08 01:23:00 Daniela [facility] (A1C) [facility] PROTHROMBIN TIME / INR 2022-03-08 01:23:00 Mk [facility] ACTIVATED PARTIAL 2022-03-08 01:23:[address] [facility] THRMPLAS JEN [facility] N-TERMINAL PRO-BNP 2022-03-08 01:23:00 Quintin Terrazas [facility] CONSENT/REFUSAL FOR 2022-03-08 00:49:33 Doctor Unassigned, [facility] DIAGNOSIS AND TREATMENT [place] [facility] [place] BASIC METABOLIC PANEL 2022-01-29 10:58:00 Tereso Guillen [facility] (NA, K, CL, CO2, GLUCOSE, Medica l Branch BUN, CREATININE, CA) CBC WITH DIFF 2022-01-29 10:58:00 Tereso Guillen [facility] PHOSPHORUS 2022 10:45:00 Jermaine Sheppard [facility] acute hospital MAGNESIUM 2022 10:45:00 Jermaine Sheppard [facility] acute hospital BASIC METABOLIC PANEL 2022 10:45:00 Jermaine Sheppard [facility] (NA, K, CL, CO2, GLUCOSE, Medica l Branch BUN, CREATININE, CA) CBC WITH DIFF 2022 10:45:00 Jermaine Sheppard [place] [facility] N-TERMINAL PRO-BNP 2022 10:45:00 Jermaine Sheppard [facility] Medical Branch MAGNESIUM 2022 00:31:00 Roseanna Blanchard [facility] TROPONIN I 2022 00:31:00 Roseanna Blanchard [facility] COMP. METABOLIC PANEL 2022 00:31:00 Roseanna Blanchard [facility] ([id number]) [facility] N-TERMINAL PRO-BNP 2022 00:31:00 Roseanna [facility]anchard [facility] 1 VW 2022-01-27 23:29:00 Roseanna Blanchard [facility] XR ANKLE 3+ VW LEFT 2022-01-27 23:29:00 Roseanna Blanchard [facility] CT TRAUMA HEAD WO 2022-01-27 23:18:00 Roseanna Blanchard [facility] CONTRAST [facility] CT TRAUMA CERVICAL SPINE 2022-01-27 23:18:[address] [facility] WO [facility] CBC WITH DIFF 2022-01-27 23:17:00 Roseanna Blanchard [facility] COVID-19 (ID NOW RAPID 2022-01-27 23:17:00 Roseanna Blanchard [facility] TESTING) Medical Branch LAB ONLY COVID 2022-01-27 23:17:00 Roseanna Blanchard [facility] INTERPRETATION [facility] NOTICE OF PRIVACY 2022-01-27 22:36:58 Doctor Dhiraj, [facility] PRACTICES [place] [facility] [place] CONSENT/REFUSAL FOR 2022-01-27 22:34:28 Doctor Dhiraj, [facility] DIAGNOSIS AND TREATMENT [place] [facility] [place] ASSIGNMENT OF BENEFITS 2022-01-27 21:51:44 Doctor Dhiraj, [facility] [place] [facility] [place] Plan of Care Planned Activity Planned Date Details Comments Source Future Scheduled 2023-05-03 INFLUENZA VACCINE Method [facility] Hospital Test 09:48:08 [code = INFLUENZA VACCINE] Future Scheduled 2023-05-03 SHINGLES VACCINES (1 Met [facility] Hospital Test 09:48:08 of 2) [code = SHINGLES VACCINES (1 of 2)] Future Scheduled 2023-05-03 65+ PNEUMOCOCCAL Methodi Hospital Test 09:48:08 VACCINE (1 - PCV) [code = 65+ PNEUMOCOCCAL VACCINE (1 - PCV)] Future Scheduled 2023-05-03 COVID-19 VACCINE (4 - [facility] Test 09:48:08 Moderna series) [code = COVID-19 VACCINE (4 - Moderna series)] Future Scheduled 2023-05-03 INFLUENZA VACCINE Method [facility] Hospital Test 09:48:08 [code = INFLUENZA VACCINE] Future Scheduled 2023-05-03 SHINGLES VACCINES (1 Met [facility] Hospital Test 09:48:08 of 2) [code = SHINGLES VACCINES (1 of 2)] Future Scheduled 2023-05-03 65+ PNEUMOCOCCAL Methodi Hospital Test 09:48:08 VACCINE (1 - PCV) [code = 65+ PNEUMOCOCCAL VACCINE (1 - PCV)] Future Scheduled 2023-05-03 COVID-19 VACCINE (4 - [facility] Hospital Test 09:48:08 Moderna series) [code = COVID-19 VACCINE (4 - Moderna series)] Future Scheduled 2023-05-03 INFLUENZA VACCINE Method is Hospital Test 09:48:08 [code = INFLUENZA VACCINE] Future Scheduled 2023-05-03 SHINGLES VACCINES (1 Met [facility] Hospital Test 09:48:08 of 2) [code = SHINGLES VACCINES (1 of 2)] Future Scheduled 2023-05-03 65+ PNEUMOCOCCAL Methodi Hospital Test 09:48:08 VACCINE (1 - PCV) [code = 65+ PNEUMOCOCCAL VACCINE (1 - PCV)] Future Scheduled 2023-05-03 COVID-19 VACCINE (4 - [facility] Hospital Test 09:48:08 Moderna series) [code = COVID-19 VACCINE (4 - Moderna series)] Encounters Start End Encounter Admission Attending Care Care Encounter Source Date/Time Date/Time Type Type Clinicians Facility Department ID 2023-03-26 Outpatient Mitesh Muhammad [facility] [id number] Common 10:08:02 [id number] [facility] 2023-01-15 Outpatient KONSTANTIN SALES [facility] [id number] Univers 08:10:26 PEDRITO ity [facility] 2022-11-14 Outpatient [facility] [id number] Common 08:56:05 [id number] [facility] 2023-06-03 2023-06-13 Inpatient PATRICK DaltonCL INTE [id number] [facility] 05:45:00 18:10:00 Avila 51 [facility] 2023-05-20 2023-05-20 Outpatient PATRICK DegrootCL OUTD [id number] [facility] 05:09:00 05:09:00 Adam 58 [facility] 2023-02-21 2023-02-21 Orders Doctor KELLY [id number] [id number] Univers 00:00:00 00:00:00 Only Unassigned, JORGE A [id number] [facility] [id number] Dariel as [phone] [address] 2023-02-13 2023-02-13 [facility] [id number] Univers 00:00:00 00:00:00 Jarrell BEASLEY [id number] ity of [id number] [phone] Ga dical NAL 9 [facility] 2023-02-11 2023-02-11 Outpatient [facility] [id number] Univers 14:00:00 14:00:00 SENDIL ity of [facility] 2023-01-23 2023-01-23 [facility]phone [facility] [id number] Univers 00:00:00 00:00:00 Jarrell BEASLEY [id number] ity of [id number] [phone] Ga dical NAL 9 [facility] 2023-01-11 2023-01-11 Telephone [facility] [id number] Univers 00:00:00 00:00:00 Jarrell BEASLEY [id number] ity of [facility] [id number] [phone] [place] [id number] [facility] 2023-01-03 2023-01-03 Outpatient R MEGHANN [facility] [id number] Univers 10:00:00 10:56:27 PEDRITO ity of [facility] 2023-01-03 2023-01-03 [facility] 1.2.840.114 [id number] Univers 10:00:00 10:56:27 Visit Pedrito GALE [id number] i ty of [facility] 4[place] [phone] [address] 2022-12-20 2022-12-20 Outpatient R CIPRIANO [facility] [id number] Univers 08:05:09 23:59:00 SENDIL ity [facility] 2022-12-20 2022-12-20 Telephone [facility] [id number] Univers 00:00:00 00:00:00 Sendsandoval BEASLEY [id number] ity of [place] [phone] [address] 2022-12-17 2022-12-17 Telephone [facility] [id number] Univers 00:00:00 00:00:00 Sendsandoval BEASLEY [id number] ity of [facility] [place] [phone] [address] 2022-12-14 2022-12-14 [facility]phone [facility] [id number] Univers 00:00:00 00:00:00 Sendsandoval BEASLEY [id number] ity of [id number] [phone] [address] 2022-12-14 2022-12-14 Orders Doctor MENDOZA 1.2.840.114 [id number] Univers 00:00:00 00:00:00 Only Unassigned, JORGE A [id number] ity of [facility] 4.2.7.2.686 Dariel as [phone] [address] 2022-12-13 2022-12-13 Screen Tender Helper 2, Adc Lab [facility] 1.2.840.114 [id number] Univers 13:45:00 14:20:17 Visit Jarrell Cota 350.1.13. 10 ity of [place] [phone] Ga dical NAL 353 [facility] 2022-12-13 2022-12-13 Outpatient R CIPRIANO [facility] [id number] Univers 13:00:00 13:30:30 SENDIL ity [facility] 2022-12-13 2022-12-13 Office Cipriano [facility] 1.2.840.114 [id number] Univers 13:00:00 13:30:30 Visit Jarrell BEASLEY 350.1.13.10 ity of [place] [phone] Ga dical NAL 059 [facility] 2022-11-27 2022-11-27 Refill Cipriano [facility] 1.2.840.114 [id number] Univers 00:00:00 00:00:00 Jarrell BEASLEY [id number] ity of [place] [phone] Ga dical NAL 059 [facility] 2022-11-14 2022-11-14 OFFICE STLC STLMLC [id number] mmon 00:00:00 00:00:00 VISIT [facility] it PT LEVEL 3 - [facility] 2022-10-31 2022-10-31 Outpatient R CIPRIANO [facility] [id number] Univers 09:00:00 09:41:46 SENDIL ity [facility] 2022-10-31 2022-10-31 Office Cipriano [facility] 1.2.840.114 [id number] Univers 09:00:00 09:41:46 Visit Jarrell ApMichael BEASLEY 350.1.13.10 ity of [place] [phone] Ga dical JHON 059 Branch BUILDING 2022-10-31 2022-10-31 Orders Doctor KELLY 1.2.840.114 [id number] Univers 00:00:00 00:00:00 Only Unassigned, JORGE A 350.1.13.10 [facility] 4.2.7.2.686 Dariel as [phone] [facility] [address] 2022-09-18 2022-09-18 Emergency [facility] 1.2.840.114 [id number] Univers 10:24:00 14:21:00 Georgia S GALE 350.1.13.10 i ty of [place] [phone] [facility] [address] 2022-09-18 2022-09-18 Outpatient Lobito MONSIVAIS [facility] ERT [id number] Univers 09:30:00 10:08:19 MITCH [facility] 2022-09-18 2022-09-18 Nurse Nurse, [facility] 1.2.840.114 [id number] Univers 09:30:00 09:50:00 Visit Unknown, [facility] HEALTH 350.1.13.10 ity of [place] 4.2.7.2.686 Dariel as KAREN?BLEA [phone] Ga william KNEY [address] MEDICAL OFFICE BUILDING 2022-09-18 2022-09-18 Outpatient Lobito MONSIVAIS [facility] [id number] Univers 09:30:00 09:30:00 [facility] 2022-04-22 2022-04-22 Outpatient Lobito RODRIGUEZ [facility] [id number] Univers 13:20:00 13:24:18 F[facility]AD [facility] 2022-04-22 2022-04-22 [facility] 1.2.840.114 [id number] Univers 13:20:00 13:24:18 Care [facility] [id number] it y of [place] 4.2.7.2.686 Dariel as KAREN?BLEA [phone] [address] MEDICAL OFFICE BUILDING 2022-03-12 2022-03-12 Transition NANCY Garcia 1.2.840.114 [id number] Univers 00:00:00 00:00:00 of Care Gilda SEN 350.1.13.10 it [place] of [place] [phone] [facility] [address] 2022-03-07 2022-03-09 Inpatient X DANIELA [facility] [id number] Univers 19:54:00 13:24:00 ADNAN ity of [facility] 2022-03-07 2022-03-09 [facility] Quintin Terrazas [facility] 1.2.840.1 14 [id number] Univers 19:54:00 13:24:00 Encounter Sheldon Suarez 350.1.13.10 ity of [place] [phone] [address] 2022-01-30 2022-01-30 Transition NANCY Pace 1.2.840.114 [id number] Univers 00:00:00 00:00:00 of Care Yesica MILLERY 350.1.13.10 [place] [phone] [facility] [address] 2022-01-27 2022-01-29 Emergency Roseanna Blanchard [facility] 1.2.8 40.114 [id number] Univers 16:43:00 16:15:00 Yanira Mixon 350.1.13.10 ity of [place]erm[place] Sheppard 4.2.7.2.686 [facility] [id number] [address] 2022-01-27 2022-01-27 Outpatient Lobito PERRY [facility] [id number] Univers 16:15:00 16:11:27 ELISA [facility] 2022-01-27 2022-01-27 Outpatient Lobito PERRY [facility] TONJA [id number] Univers 16:15:00 16:11:27 RANIA [facility] 2022-01-27 2022-01-27 Outpatient R KING ENOC [facility] [id number] Univers 16:00:00 16:00:00 CHUY [facility] 2022-01-27 2022-01-27 Orders Doctor KELLY 1.2.840.114 [id number] Univers 00:00:00 00:00:00 Only Unassigned, JORGE A 350.1.13.10 ity [place] [facility] 4.2.7.2.686 Dariel as [phone] [address] 2021-12-25 2021-12-29 Inpatient [facility] [id number] [place] 00:00:00 00:00:00 ALEXI [address] 2021-04-26 2021-04-26 Outpatient Lobito ARMENTA [facility] [id number] Univers 08:00:00 08:00:00 [facility] 2021-01-19 2021-01-19 Outpatient Lobito WANG [facility] [id number] Univers 09:40:00 09:40:00 [facility] 2020-12-22 2020-12-22 Outpatient Lobito WANG [facility] [id number] Univers 09:40:00 09:40:00 [facility] 2020-11-24 2020-11-24 Outpatient Lobito WANG [facility] [id number] Univers 10:00:00 10:00:00 SHANNON [facility] 2020-10-26 2020-10-26 Outpatient Lobito ARMENTA [facility] [id number] Univers 08:00:00 08:00:00 [facility] 2020-04-26 2020-04-26 Outpatient Lobito ARMENTA [facility] [id number] Univers 08:30:00 08:30:00 [facility] 2020-04-15 2020-04-15 Outpatient Lobito ARMENTA [facility] [id number] Univers 10:00:00 10:00:00 [facility] Results Test Description Test Time Test Comments Results Result Comments Source GLUCOSE BEDSIDE 2023-06-13 17:04:00 Test Item Value Reference Range Interpretation Comme [facility] GLUCOSE BEDSIDE (test code = 177 MG/DL 70-110 H Performed by certified 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 [facility] GLUCOSE [id number] 12:44:00 Test Item Value Reference Range Interpretation Comments GLUCOSE BEDSIDE (test 143 MG/DL 70-110 H [facility] by certified code = GLUBED) 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 [facility] BASIC METABOLIC [id number] 10:08:00 Test Item Value Reference Range Interpretation Comments SODIUM (test code = 136 mEq/L 134-147 N NA) POTASSIUM (test code 3.6 mEq/L 3.4-5.0 N = K) CHLORIDE (test code 108 mEq/L 100-108 N = CL) CARBON DIOXIDE (test 26 mEq/l 21-33 N code = CO2) ANION GAP (test code 6 0-20 N = GAP) GLUCOSE (test code = 100 mg/dL 70-110 N GLU) BLOOD UREA NITROGEN 12 mg/dL 7-18 N (test code = BUN) GLOMERULAR 74.7 70-80 N The Glomerular FILTRATION RATE Filtration R ate is a (test code = GFR) calculated parameterbased on serum Creatinine, pat ient age and sex. GFR va luesless than 60 mL/min/ 1.73 square meters a re indicative ofCh ronic Kidney Disease. Values less than 15 mL/min/1.73squa re meters indicate Kidney failure. The calculation forGFR is based on the CKD-EPI (2020) calculat ion. This formulais race indifferent and is the recommended for lida for GFRby the State mental health facility [facility] on for Adults.The GFR will not calculate if th e sex is unknown or if thepatient's ag e is <18 years. CREATININE (test 1.0 mg/dL 0.6-1.3 N code = CREAT) CALCIUM (test code = 8.0 mg/dL 8.0-10.5 N CA) [id number] 10:08:00 Test Item Value Reference Range Interpretation Comments MAGNESIUM (test code = MAG) 2.00 mg/dL 1.80-2.40 N CBC W/AUTO [id number] 09:06:00 Test Item Value Reference Range Interpretation Comments WHITE BLOOD CELL (test code = 10.4 x10 3/uL 4.5-11.0 N WBC) RED BLOOD CELL (test code = 2.64 x10 6/uL 4.00-5.60 L RBC) HEMOGLOBIN (test code = HGB) 7.8 g/dL 12.5-16.9 L HEMATOCRIT (test code = HCT) 25.1 % 37.5-50.7 L MEAN CELL VOLUME (test code = 95.1 fL 81.0-99.0 N MCV) MEAN CELL HGB (test code = MCH) 29.5 pg 27.0-33.0 N MEAN CELL HGB CONCETRATION 31.1 g/dL 33.0-37.0 L (test code = MCHC) RED CELL DISTRIBUTION WIDTH CV 16.4 % 11.5-14.5 H (test code = RDW) RED CELL DISTRIBUTION WIDTH SD 52.9 fL 37.0-54.0 N (test code = RDW-SD) PLATELET COUNT (test code = 299 x10 3/uL 150-400 N PLT) MEAN PLATELET VOLUME (test code 9.7 fL 7.0-9.0 H = MPV) NEUTROPHIL % (test code = NT%) 74.1 % 56.0-77.0 N IMMATURE GRANULOCYTE % (test 0.7 % 0.0-2.0 N code = IG%) LYMPHOCYTE % (test code = LY%) 15.3 % 14.0-32.0 N MONOCYTE % (test code = MO%) 6.9 % 4.8-9.0 N EOSINOPHIL % (test code = EO%) 2.5 % 0.3-3.7 N BASOPHIL % (test code = BA%) 0.5 % 0.0-2.0 N NUCLEATED RBC % (test code = 0.0 % 0-0 N NRBC%) NEUTROPHIL # (test code = NT#) 7.74 x10 3/uL 2.0-7.6 H IMMATURE GRANULOCYTE # (test 0.07 x10 3/uL 0.00-0.03 H code = IG#) LYMPHOCYTE # (test code = LY#) 1.60 x10 3/uL 1.0-3.8 N MONOCYTE # (test code = MO#) 0.72 x10 3/uL 0.1-0.8 N EOSINOPHIL # (test code = EO#) 0.26 x10 3/uL 0.0-0.2 H BASOPHIL # (test code = BA#) 0.05 x10 3/uL 0.0-0.2 N NUCLEATED RBC # (test code = 0.00 x10 3/uL 0.0-0.1 N NRBC#) MANUAL DIFF REQUIRED (test code NO = MDIFF) GLUCOSE [id number] 07:44:00 Test Item Value Reference Range Interpretation Comments GLUCOSE BEDSIDE (test 103 MG/DL 70-110 N Perfor med by certified code = GLUBED) 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 [facility] GLUCOSE [id number] 06:33:00 Test Item Value Reference Range Interpretation Comments GLUCOSE BEDSIDE (test 115 MG/DL 70-110 H Perfor med by certified code = GLUBED) 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 [facility] - DUP VEIN [id number] 00:00:00 [facility] 1940 Sex: M Name: ODIN ZENG 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 Findings were discussed with Shane Willoughby at 06/13/2023 4:48 PM CDT. at 3686 Reported and signed by: Homer Estevez M.D. Report PROCEDURE INFORMATION: Exam: US Duplex Lower Extremity Veins, Bilateral Exam dateand time: 06/13/2023 2:59 PM Age: 83 years old Clinical indication: Screening exam; S/P mvr; R/O dvt.Postop mitral valve replacement. TECHNIQUE: Imaging protocol: Real- time duplex ultrasound of the bilateral extremities with 2-D gonzalez scale, color Doppler flow and spectral waveform analysis including responses to compression and other maneuvers (when performed) with image documentation. Complete exam focused on the lower extremity veins. COMPARISON: US DUP VEIN ASIM 06/09/2023 2:33 PM FINDINGS: Right deep veins: Small focus of echogenic peripheral thrombus is seen in the common femoral vein with persistent color flow in this area. The femoral and popliteal veins are patent without thrombus. Normal Doppler waveforms. Right superficial veins: Saphenofemoral junction with small amount of thrombus. Left deep veins: The common femoral, femoral, proximal profunda femoral and popliteal veins are patent without thrombus. Normal Doppler waveforms. Normal compressibility and/or augmentation response. Leftsuperficial veins: Saphenofemoral junction is patent without thrombus. Soft tissues: No significant finding. IMPRESSION: PAGE 1 Signed Report (CONTINUED) Name: ODIN ZENG 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 2. No evidence of deep vein thrombosis in left lower extremity. at 1644 Reported and signed by: Homer Estevez M.D. CC: Mitesh Muhammad MD; Edouard Sanchez MD; Shane Willoughby NP Technologist: Britany Stone Trnwib Date/Time: 06/13/2023 (1643) [email or web address] Orig Print D/T: S: 06/13/2023 (1643) Probe: PAGE 2 Signed ReportGLUCOSE BEDSIDE 2023-06-12 20:06:00 Test Item Value Reference Range Interpretation Comments GLUCOSE BEDSIDE (test 185 MG/DL 70-110 H Perfor med by certified code = GLUBED) 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 [facility] GLUCOSE [id number] 16:29:00 Test Item Value Reference Range Interpretation Comments GLUCOSE BEDSIDE (test 156 MG/DL 70-110 H Perfor med by certified code = GLUBED) 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 [facility] GLUCOSE [id number] 12:08:00 Test Item Value Reference Range Interpretation Comments GLUCOSE BEDSIDE (test 133 MG/DL 70-110 H Perfor med by certified code = GLUBED) 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 [facility] BASIC METABOLIC [id number] 07:40:00 Test Item Value Reference Range Interpretation Comments SODIUM (test code = 134 mEq/L 134-147 N NA) POTASSIUM (test code 3.8 mEq/L 3.4-5.0 N = K) CHLORIDE (test code 106 mEq/L 100-108 N = CL) CARBON DIOXIDE (test 22 mEq/l 21-33 N code = CO2) ANION GAP (test code 9 0-20 N = GAP) GLUCOSE (test code = 114 mg/dL 70-110 H GLU) BLOOD UREA NITROGEN 11 mg/dL 7-18 N (test code = BUN) GLOMERULAR 74.7 70-80 N The Glomerular FILTRATION RATE Filtration R ate is a (test code = GFR) calculated parameterbased on serum Creatinine, pat ient age and sex. GFR va luesless than 60 mL/min/ 1.73 square meters a re indicative ofCh ronic Kidney Disease. Values less than 15 mL/min/1.73squa re meters indicate Kidney failure. The calculation forGFR is based on the CKD-EPI (2020) calculat ion. This formulais race indifferent and is the recommended for lida for GFRby the Natio nal Kidney Foundati on for Adults.The GFR will not calculate if th e sex is unknown or if thepatient's ag e is <18 years. CREATININE (test 1.0 mg/dL 0.6-1.3 N code = CREAT) CALCIUM (test code = 8.1 mg/dL 8.0-10.5 N CA) CBC W/AUTO [id number] 07:30:00 Test Item Value Reference Range Interpretation Comments WHITE BLOOD CELL (test code = 8.8 x10 3/uL 4.5-11.0 N WBC) RED BLOOD CELL (test code = 2.86 x10 6/uL 4.00-5.60 L RBC) HEMOGLOBIN (test code = HGB) 8.8 g/dL 12.5-16.9 L HEMATOCRIT (test code = HCT) 27.8 % 37.5-50.7 L MEAN CELL VOLUME (test code = 97.2 fL 81.0-99.0 N MCV) MEAN CELL HGB (test code = MCH) 30.8 pg 27.0-33.0 N MEAN CELL HGB CONCETRATION 31.7 g/dL 33.0-37.0 L (test code = MCHC) RED CELL DISTRIBUTION WIDTH CV 16.1 % 11.5-14.5 H (test code = RDW) PLATELET COUNT (test code = 278 x10 3/uL 150-400 N PLT) NEUTROPHIL % (test code = NT%) 68.2 % 56.0-77.0 N LYMPHOCYTE % (test code = LY%) 18.3 % 14.0-32.0 N NEUTROPHIL # (test code = NT#) 6.02 x10 3/uL 2.0-7.6 N LYMPHOCYTE # (test code = LY#) 1.62 x10 3/uL 1.0-3.8 N MANUAL DIFF REQUIRED (test code NO = MDIFF) RED CELL DISTRIBUTION WIDTH SD 52.4 fL 37.0-54.0 N (test code = RDW-SD) MEAN PLATELET VOLUME (test code 10.1 fL 7.0-9.0 H = MPV) IMMATURE GRANULOCYTE % (test 1.1 % 0.0-2.0 N code = IG%) MONOCYTE % (test code = MO%) 8.8 % 4.8-9.0 N EOSINOPHIL % (test code = EO%) 3.1 % 0.3-3.7 N BASOPHIL % (test code = BA%) 0.5 % 0.0-2.0 N NUCLEATED RBC % (test code = 0.2 % 0-0 H NRBC%) IMMATURE GRANULOCYTE # (test 0.10 x10 3/uL 0.00-0.03 H code = IG#) MONOCYTE # (test code = MO#) 0.78 x10 3/uL 0.1-0.8 N EOSINOPHIL # (test code = EO#) 0.27 x10 3/uL 0.0-0.2 H BASOPHIL # (test code = BA#) 0.04 x10 3/uL 0.0-0.2 N NUCLEATED RBC # (test code = 0.02 x10 3/uL 0.0-0.1 N NRBC#) GLUCOSE [id number] 07:11:00 Test Item Value Reference Range Interpretation Comments GLUCOSE BEDSIDE (test 128 MG/DL 70-110 H Perfor med by certified code = GLUBED) 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 : 1940 Age/S: 83/M [address] [place] [address] Unit #: [id number] Loc: [place] [address] Phys: Abiodun Sanchez MD Acct: [id number] Dis Date: Status: ADM IN PHONE #: [phone] Exam Date: 06/12/2023540 FAX #: [phone] Reason: Post CV Surgery EXAMS: CPT CODE: [id number] XR CHEST 1 V 81194 PROCEDURE INFORMATION: Exam: XR Chest Exam date and time: 06/12/2023 5:40 AM Age: 83 years old Clinical indication: Other: Post cv surgery TECHNIQUE: Imaging protocol: Radiologic exam of the chest. Views: 1 view. COMPARISON: CR XR CHEST 1V 06/11/2023 5:44 AM FINDINGS: Tubes, catheters and devices: Loop recorder device noted. Lungs: Residual airspace opacity at each lung base. Mild improvement of the left base. Slight progression of right basilar opacity. Lung morales otherwise stable. Pleural spaces: No pleural abnormality. Heart/Mediastinum: Stable cardiomediastinal contours. Valvulopla sty. Left atrial appendage closure device. Bones/joints: Sternotomy. Incidental degenerative changes. IMPRESSION: 1. Residual bibasilar opacity with mild improvement on the left and slight progression on the right. 2. Otherwise stable. at 0705 Reported and signed by: Christophe Lord M.D. CC: Mitesh Muhammad MD; Abiodun Sanchez MD Technologist: Judy Todd, RT(R) Trnscrd Date/Time/By: 06/12/2023 (704) : By: [email or web address] Orig Print D/T: S: 06/12/2023 (704) PAGE 1 Signed Report GLUCOSE [id number] 20:41:00 Test Item Value Reference Range Interpretation Comments GLUCOSE BEDSIDE (test 212 MG/DL 70-110 H [facility] med by certified code = GLUBED) 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 [facility] GLUCOSE [id number] 18:08:00 Test Item Value Reference Range Interpretation Comments GLUCOSE BEDSIDE (test 198 MG/DL 70-110 H Perfor med by certified code = GLUBED) 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 [facility] GLUCOSE [id number] 15:51:00 Test Item Value Reference Range Interpretation Comments GLUCOSE BEDSIDE (test 112 MG/DL 70-110 H Perfor med by certified code = GLUBED) 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 [facility] GLUCOSE [id number] 08:20:00 Test Item Value Reference Range Interpretation Comments GLUCOSE BEDSIDE (test 130 MG/DL 70-110 H Perfor med by certified code = GLUBED) 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 [facility] CBC W/AUTO [id number] 07:50:00 Test Item Value Reference Range Interpretation Comments WHITE BLOOD CELL (test code = 9.3 x10 3/uL 4.5-11.0 N WBC) RED BLOOD CELL (test code = 2.93 x10 6/uL 4.00-5.60 L RBC) HEMOGLOBIN (test code = HGB) 8.9 g/dL 12.5-16.9 L HEMATOCRIT (test code = HCT) 27.8 % 37.5-50.7 L MEAN CELL VOLUME (test code = 94.9 fL 81.0-99.0 N MCV) MEAN CELL HGB (test code = MCH) 30.4 pg 27.0-33.0 N MEAN CELL HGB CONCETRATION 32.0 g/dL 33.0-37.0 L (test code = MCHC) RED CELL DISTRIBUTION WIDTH CV 15.8 % 11.5-14.5 H (test code = RDW) RED CELL DISTRIBUTION WIDTH SD 50.1 fL 37.0-54.0 N (test code = RDW-SD) PLATELET COUNT (test code = 279 x10 3/uL 150-400 N PLT) MEAN PLATELET VOLUME (test code 10.3 fL 7.0-9.0 H = MPV) NEUTROPHIL % (test code = NT%) 62.2 % 56.0-77.0 N IMMATURE GRANULOCYTE % (test 1.2 % 0.0-2.0 N code = IG%) LYMPHOCYTE % (test code = LY%) 23.8 % 14.0-32.0 N MONOCYTE % (test code = MO%) 9.9 % 4.8-9.0 H EOSINOPHIL % (test code = EO%) 2.6 % 0.3-3.7 N BASOPHIL % (test code = BA%) 0.3 % 0.0-2.0 N NUCLEATED RBC % (test code = 0.3 % 0-0 H NRBC%) NEUTROPHIL # (test code = NT#) 5.75 x10 3/uL 2.0-7.6 N IMMATURE GRANULOCYTE # (test 0.11 x10 3/uL 0.00-0.03 H code = IG#) LYMPHOCYTE # (test code = LY#) 2.20 x10 3/uL 1.0-3.8 N MONOCYTE # (test code = MO#) 0.92 x10 3/uL 0.1-0.8 H EOSINOPHIL # (test code = EO#) 0.24 x10 3/uL 0.0-0.2 H BASOPHIL # (test code = BA#) 0.03 x10 3/uL 0.0-0.2 N NUCLEATED RBC # (test code = 0.03 x10 3/uL 0.0-0.1 N NRBC#) MANUAL DIFF REQUIRED (test code NO = MDIFF) BASIC METABOLIC [id number] 07:13:00 Test Item Value Reference Range Interpretation Comments SODIUM (test code = 135 mEq/L 134-147 N NA) POTASSIUM (test code 3.8 mEq/L 3.4-5.0 N = K) CHLORIDE (test code 104 mEq/L 100-108 N = CL) CARBON DIOXIDE (test 21 mEq/l 21-33 N code = CO2) ANION GAP (test code 14 0-20 N = GAP) GLUCOSE (test code = 130 mg/dL 70-110 H GLU) BLOOD UREA NITROGEN 10 mg/dL 7-18 N (test code = BUN) GLOMERULAR 66.6 70-80 L The Glomerular FILTRATION RATE Filtration R ate is a (test code = GFR) calculated parameterbased on serum Creatinine, pat ient age and sex. GFR va luesless than 60 mL/min/ 1.73 square meters a re indicative ofCh ronic Kidney Disease. Values less than 15 mL/min/1.73squa re meters indicate Kidney failure. The calculation forGFR is based on the CKD-EPI (2020) calculat ion. This formulais race indifferent and is the recommended for lida for GFRby the Natio nal Kidney Foundati on for Adults.The GFR will not calculate if th e sex is unknown or if thepatient's ag e is <18 years. CREATININE (test 1.1 mg/dL 0.6-1.3 N code = CREAT) CALCIUM (test code = 7.8 mg/dL 8.0-10.5 L CA) - XR CHEST 1 [id number] 00:00:00 [facility] 1940 Sex: M FAX: Mitesh Hopkins MD [phone] Cecilia: St: ADM FAX: Abiodun Leavitt [phone] Name: KARRIODIN [facility] : 1940 Age/S: 83/M [address] [place] [address] Unit #: [id number] Loc: G.33[address] [place] [address] Phys: Abiodun Sanchez MD Acct: [id number] Dis Date: Status: ADM IN PHONE #: [phone] Ex am Date: 06/11/2023 0643 FAX #: [phone] Reason: Post CV Surgery EXAMS: CPT CODE: [id number] XR CHEST 1 V 93098 PROCEDURE INFORMATION: Exam: XR Chest Exam date and time: 06/11/2023 5:44 AM Age: 83 years old Clinical indication: Other: Post cv surgery TECHNIQUE: Imaging protocol: Radiologic exam ofthe chest. Views: 1 view. COMPARISON: CR XR CHEST 1V 06/10/2023 5:12 AM FINDINGS: Tubes, catheters and devices: Cardiac loop recorder. Lungs: Mild worsening opacities in both lung bases. The other lungopacities are stable. Pleural spaces: Question small left pleural effusion. No definite pneumothorax. Heart/Mediastinum: Stable heart size. Stable cardiac valve replacement. Bones/joints: Stable. Median sternotomy wires. Median sternotomy wires. IMPRESSION: Mild worsening opacities in both lung bases. at 0823 Reported and signed by: Tom Bello M.D. CC: Mitesh Muhammad MD; Abiodun Sanchez MD Technologist: RT Sarahy(R) Trnscrd Date/Time/By: 06/11/2023 (822) : By: [email or web address] Orig Print D/T: S: 06/11/2023 (822) PAGE 1 Signed ReportGLUCOSE [id number] 19:44:00 Test Item Value Reference Range Interpretation Comments GLUCOSE BEDSIDE (test 118 MG/DL 70-110 H Perfor med by certified code = GLUBED) 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 [facility] GLUCOSE [id number] 17:15:00 Test Item Value Reference Range Interpretation Comments GLUCOSE BEDSIDE (test 113 MG/DL 70-110 H Perfor med by certified code = GLUBED) 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 [facility] GLUCOSE [id number] 15:15:00 Test Item Value Reference Range Interpretation Comments GLUCOSE BEDSIDE (test 110 MG/DL 70-110 N Perfor med by certified code = GLUBED) 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 [facility] GLUCOSE [id number] 11:29:00 Test Item Value Reference Range Interpretation Comments GLUCOSE BEDSIDE (test 188 MG/DL 70-110 H Perfor med by certified code = GLUBED) 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 [facility] GLUCOSE [id number] 08:33:00 Test Item Value Reference Range Interpretation Comments GLUCOSE BEDSIDE (test 137 MG/DL 70-110 H Perfor med by certified code = GLUBED) 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 [facility] BASIC METABOLIC [id number] 03:02:00 Test Item Value Reference Range Interpretation Comments SODIUM (test code = 138 mEq/L 134-147 N NA) POTASSIUM (test code 3.7 mEq/L 3.4-5.0 N = K) CHLORIDE (test code 105 mEq/L 100-108 N = CL) CARBON DIOXIDE (test 26 mEq/l 21-33 N code = CO2) ANION GAP (test code 10 0-20 N = GAP) GLUCOSE (test code = 142 mg/dL 70-110 H GLU) BLOOD UREA NITROGEN 12 mg/dL 7-18 N (test code = BUN) GLOMERULAR 84.7 70-80 H The Glomerular FILTRATION RATE Filtration R ate is a (test code = GFR) calculated parameterbased on serum Creatinine, pat ient age and sex. GFR va luesless than 60 mL/min/ 1.73 square meters a re indicative ofCh ronic Kidney Disease. Values less than 15 mL/min/1.73squa re meters indicate Kidney failure. The calculation forGFR is based on the CKD-EPI (2020) calculat ion. This formulais race indifferent and is the recommended for lida for GFRby the Natio nal Kidney Foundati on for Adults.The GFR will not calculate if th e sex is unknown or if thepatient's ag e is <18 years. CREATININE (test 0.9 mg/dL 0.6-1.3 N code = CREAT) CALCIUM (test code = 7.9 mg/dL 8.0-10.5 L CA) [id number] 03:02:00 Test Item Value Reference Range Interpretation Comments MAGNESIUM (test code = MAG) 2.04 mg/dL 1.80-2.40 N CBC W/AUTO [id number] 02:43:00 Test Item Value Reference Range Interpretation Comments WHITE BLOOD CELL (test code = 10.0 x10 3/uL 4.5-11.0 N WBC) RED BLOOD CELL (test code = 2.79 x10 6/uL 4.00-5.60 L RBC) HEMOGLOBIN (test code = HGB) 8.5 g/dL 12.5-16.9 L HEMATOCRIT (test code = HCT) 25.9 % 37.5-50.7 L MEAN CELL VOLUME (test code = 92.8 fL 81.0-99.0 N MCV) MEAN CELL HGB (test code = MCH) 30.5 pg 27.0-33.0 N MEAN CELL HGB CONCETRATION 32.8 g/dL 33.0-37.0 L (test code = MCHC) RED CELL DISTRIBUTION WIDTH CV 15.0 % 11.5-14.5 H (test code = RDW) PLATELET COUNT (test code = 202 x10 3/uL 150-400 N PLT) NEUTROPHIL % (test code = NT%) 70.9 % 56.0-77.0 N LYMPHOCYTE % (test code = LY%) 15.2 % 14.0-32.0 N NEUTROPHIL # (test code = NT#) 7.09 x10 3/uL 2.0-7.6 N LYMPHOCYTE # (test code = LY#) 1.52 x10 3/uL 1.0-3.8 N MANUAL DIFF REQUIRED (test code NO = MDIFF) RED CELL DISTRIBUTION WIDTH SD 47.2 fL 37.0-54.0 N (test code = RDW-SD) MEAN PLATELET VOLUME (test code 10.1 fL 7.0-9.0 H = MPV) IMMATURE GRANULOCYTE % (test 1.4 % 0.0-2.0 N code = IG%) MONOCYTE % (test code = MO%) 9.3 % 4.8-9.0 H EOSINOPHIL % (test code = EO%) 2.9 % 0.3-3.7 N BASOPHIL % (test code = BA%) 0.3 % 0.0-2.0 N NUCLEATED RBC % (test code = 0.4 % 0-0 H NRBC%) IMMATURE GRANULOCYTE # (test 0.14 x10 3/uL 0.00-0.03 H code = IG#) MONOCYTE # (test code = MO#) 0.93 x10 3/uL 0.1-0.8 H EOSINOPHIL # (test code = EO#) 0.29 x10 3/uL 0.0-0.2 H BASOPHIL # (test code = BA#) 0.03 x10 3/uL 0.0-0.2 N NUCLEATED RBC # (test code = 0.04 x10 3/uL 0.0-0.1 N NRBC#) - XR CHEST 1 [id number] 00:00:00 [facility] : 1940 Sex: M FAX: Mitesh Hopkins MD [phone] Cecilia: St: [facility] FAX: Abiodun Leavitt [phone] FAX: Carrillo Jaramillo MD [phone] Name: ODIN ZENG [facility] [place] : 1940 Age/S: 83/M [address] [place] [address] Unit #: [id number] Loc: G.[address] [place] [address] Phys: Carrillo Jaramillo MD Acct: [id number] Dis Date: Status: ADM IN PHONE #: [phone] Exam Date: 06/10/2023512 FAX #: [phone] Reason: S/P MVR EXAMS: CPTCODE: [id number] XR CHEST 1 V 05444 PROCEDURE INFORMATION: Exam: XR Chest Exam date and time: 06/10/2023 5:12 AM Age: 83 years old Clinical indication: Other: S/P mvr TECHNIQUE: Imaging protocol: Radiologic exam of the chest. Views: 1 view. COMPARISON: CR XR CHEST 1V 06/09/2023 5:49 AM FINDINGS: Lungs: Increased vascular congestion and interstitial edema. Increased opacities in both lung bases. Pleuralspaces: No pleural effusion. No pneumothorax. Heart/Mediastinum: Mild cardiomegaly. Bones/joints: Midline sternotomy wires. IMPRESSION: 1. Increased vascular congestion and interstitial edema. 2. Increased bibasilar atelectasis/infiltrates. at 0700 Reported and signed by: Dhiraj Navarrete M.D. CC: Mitesh Muhammad MD; Abiodun Sanchez MD; Carrillo Jaramillo MD Technologist: Judy Todd RT(R) Trnscrd Date/Time/By: 06/10/2023 (699) : By: [email or web address] Orig Print D/T: S: 06/10/2023 (699) PAGE 1 Signed ReportGLUCOSE [id number] 21:02:00 Test Item Value Reference Range Interpretation Comments GLUCOSE BEDSIDE (test 186 MG/DL 70-110 H Perfor med by certified code = GLUBED) 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 [facility] GLUCOSE [id number] 16:54:00 Test Item Value Reference Range Interpretation Comments GLUCOSE BEDSIDE (test 100 MG/DL 70-110 N Perfor med by certified code = GLUBED) 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 [facility] GLUCOSE [id number] 11:32:00 Test Item Value Reference Range Interpretation Comments GLUCOSE BEDSIDE (test 153 MG/DL 70-110 H Perfor med by certified code = GLUBED) 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 [facility] GLUCOSE [id number] 07:48:00 Test Item Value Reference Range Interpretation Comments GLUCOSE BEDSIDE (test 109 MG/DL 70-110 N Perfor med by certified code = GLUBED) 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 [facility] BASIC METABOLIC [id number] 03:20:00 Test Item Value Reference Range Interpretation Comments SODIUM (test code = 136 mEq/L 134-147 N NA) POTASSIUM (test code 3.6 mEq/L 3.4-5.0 N = K) CHLORIDE (test code 105 mEq/L 100-108 N = CL) CARBON DIOXIDE (test 26 mEq/l 21-33 N code = CO2) ANION GAP (test code 9 0-20 N = GAP) GLUCOSE (test code = 138 mg/dL 70-110 H GLU) BLOOD UREA NITROGEN 14 mg/dL 7-18 N (test code = BUN) GLOMERULAR 84.7 70-80 H The Glomerular FILTRATION RATE Filtration R ate is a (test code = GFR) calculated parameterbased on serum Creatinine, pat ient age and sex. GFR va luesless than 60 mL/min/ 1.73 square meters a re indicative ofCh ronic Kidney Disease. Values less than 15 mL/min/1.73squa re meters indicate Kidney failure. The calculation forGFR is based on the CKD-EPI (2020) calculat ion. This formulais race indifferent and is the recommended for lida for GFRby the Natio nal Kidney Foundati on for Adults.The GFR will not calculate if th e sex is unknown or if thepatient's ag e is <18 years. CREATININE (test 0.9 mg/dL 0.6-1.3 N code = CREAT) CALCIUM (test code = 8.2 mg/dL 8.0-10.5 N CA) [id number] 03:20:00 Test Item Value Reference Range Interpretation Comments MAGNESIUM (test code = MAG) 2.06 mg/dL 1.80-2.40 N CBC W/AUTO [id number] 02:32:00 Test Item Value Reference Range Interpretation Comments WHITE BLOOD CELL (test code = 10.4 x10 3/uL 4.5-11.0 N WBC) RED BLOOD CELL (test code = 2.52 x10 6/uL 4.00-5.60 L RBC) HEMOGLOBIN (test code = HGB) 7.7 g/dL 12.5-16.9 L HEMATOCRIT (test code = HCT) 22.8 % 37.5-50.7 L MEAN CELL VOLUME (test code = 90.5 fL 81.0-99.0 N MCV) MEAN CELL HGB (test code = MCH) 30.6 pg 27.0-33.0 N MEAN CELL HGB CONCETRATION 33.8 g/dL 33.0-37.0 N (test code = MCHC) RED CELL DISTRIBUTION WIDTH CV 14.4 % 11.5-14.5 N (test code = RDW) RED CELL DISTRIBUTION WIDTH SD 45.4 fL 37.0-54.0 N (test code = RDW-SD) PLATELET COUNT (test code = 136 x10 3/uL 150-400 L PLT) MEAN PLATELET VOLUME (test code 11.1 fL 7.0-9.0 H = MPV) NEUTROPHIL % (test code = NT%) 70.2 % 56.0-77.0 N IMMATURE GRANULOCYTE % (test 1.5 % 0.0-2.0 N code = IG%) LYMPHOCYTE % (test code = LY%) 16.1 % 14.0-32.0 N MONOCYTE % (test code = MO%) 9.6 % 4.8-9.0 H EOSINOPHIL % (test code = EO%) 2.2 % 0.3-3.7 N BASOPHIL % (test code = BA%) 0.4 % 0.0-2.0 N NUCLEATED RBC % (test code = 0.7 % 0-0 H NRBC%) NEUTROPHIL # (test code = NT#) 7.33 x10 3/uL 2.0-7.6 N IMMATURE GRANULOCYTE # (test 0.16 x10 3/uL 0.00-0.03 H code = IG#) LYMPHOCYTE # (test code = LY#) 1.68 x10 3/uL 1.0-3.8 N MONOCYTE # (test code = MO#) 1.00 x10 3/uL 0.1-0.8 H EOSINOPHIL # (test code = EO#) 0.23 x10 3/uL 0.0-0.2 H BASOPHIL # (test code = BA#) 0.04 x10 3/uL 0.0-0.2 N NUCLEATED RBC # (test code = 0.07 x10 3/uL 0.0-0.1 N NRBC#) MANUAL DIFF REQUIRED (test code NO = MDIFF) - DUP VEIN [id number] 00:00:00 [facility] 1940 Sex: M Name: ODIN ZENG [facility] [place] : 1940 Age/S: 83 / M [address] [place] [address] Unit #: [id number] Loc: [place] [address] Phys: Kerri Cassidy Acct: [id number] Dis Date: Status: ADM IN PHONE #: [phone] Exam Date: 06/09/2023 1505 FAX #: [phone] Reason: R/O DVT EXAMS: CPT CODE: [id number] DUP VEIN ASIM [id number] PROCEDURE INFORMATION: Exam: US Duplex Lower Extremity Veins, Bilateral Exam date and time: 06/09/2023 2:33 PM Age: 83 years old Clinical indication: Screening exam; R/O dvt TECHNIQUE: Imaging protocol: Real-time duplex ultrasound of the bilateral extremities with 2-D gonzalez scale, color Doppler flow and spectral waveform analysis including responses to compression and other maneuvers (when performed) with image documentation. Complete exam focused on the lower extremity veins. COMPARISON: No relevant prior studies available. FINDINGS: Right deep veins: Unremarkable. The common femoral, femoral, proximal profunda femoral and popliteal veins are patent without thrombus. Normal Doppler waveforms. Normal compressibility and/or augmentation response. Right superficial veins: Saphenofemoral junction is patent without thrombus. Left deep veins: Unremarkable. The common femoral,femoral, proximal profunda femoral and popliteal veins are patent without thrombus. Normal Doppler waveforms. Normal compressibility and/or augmentation response. Left superficial veins: Saphenofemoraljunction is patent without thrombus. Soft tissues: Unremarkable. IMPRESSION: No evidence of deep vein thrombosis. at 1512 Reported and signed by: Elgin Henderson M.D. CC: Mitesh Muhammad MD; Abiodun Sanchez MD; Kerri Cassidy Technologist: Opal Paulino Trnscb Date/Time: 06/09/2023 (1511) Brent Orig Print D/T: S: 06/09/2023 (9181) Probe: PAGE 1 Signed Report- XR CHEST 1 [id number] 00:00:00 [facility] 1940 Sex: M FAX: Mitesh Hopkins MD [phone] [place]: St: ADM FAX: Abiodun Leavitt [phone] FAX: Kerri Laguerre [facility] [phone] Name: ODIN ZENG [facility] : 1940 Age/S: 83/M [address] [place] [address] Unit #: [id number] Loc: G.[address] [place] [address] Phys: Kerri Cassidy Physic Acct: [id number] Dis Date: Status: ADM IN PHONE #: [phone] Exam Date: 06/09/2023 0635 FAX #: [phone] Reason: Cardiac Surgery Post Op EXAMS: CPT CODE: [id number] XR CHEST 1 V 08143 PROCEDURE INFORMATION: Exam: XR Chest Ex am date and time: 06/09/2023 5:49 AM Age: 83 years old Clinical indication: Condition or disease; Other: Cardiac surgery post op TECHNIQUE: Imaging protocol: Radiologic exam of the chest. Views: 1 view. COMPARISON: CR XR CHEST 1V 06/08/2023 5:54 AM FINDINGS: Lungs: Minimal basilar opacities likely atele ctasis or scarring. No new areas of airspace disease. Pleural spaces: Unremarkable. No pleural effusion. No pneumothorax. Heart/Mediastinum: Heart is stable size. Status post median sternotomy and cardiac valve replacement. Bones/joints: Unchanged. IMPRESSION: Minimal basilar opacities likely atelectas is or scarring. No new areas of airspace disease. at 0659 Reported and signed by: Kings Yates M.D. CC: Mitesh Muhammad MD; Abiodun Sanchez MD; Kerri Cassidy Technologist: RT Chad(Lobito) Trnscrd Date/Time/By: 06/09/2023 (59) : By: [email or web address] Orig Print D/T: S: 06/09/2023 (0659) PAGE 1 Signed ReportGLUCOSE [id number] 20:11:00 Test Item Value Reference Range Interpretation Comments GLUCOSE BEDSIDE (test 135 MG/DL 70-110 H Perfor med by certified code = GLUBED) 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 [facility] GLUCOSE [id number] 16:33:00 Test Item Value Reference Range Interpretation Comments GLUCOSE BEDSIDE (test 159 MG/DL 70-110 H Perfor med by certified code = GLUBED) 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 [facility] GLUCOSE [id number] 11:39:00 Test Item Value Reference Range Interpretation Comments GLUCOSE BEDSIDE (test 186 MG/DL 70-110 H Perfor med by certified code = GLUBED) 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 [facility] GLUCOSE [id number] 07:45:00 Test Item Value Reference Range Interpretation Comments GLUCOSE BEDSIDE (test 148 MG/DL 70-110 H Perfor med by certified code = GLUBED) 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 [facility] BASIC METABOLIC [id number] 02:55:00 Test Item Value Reference Range Interpretation Comments SODIUM (test code = 137 mEq/L 134-147 N NA) POTASSIUM (test code 3.6 mEq/L 3.4-5.0 N = K) CHLORIDE (test code 104 mEq/L 100-108 N = CL) CARBON DIOXIDE (test 26 mEq/l 21-33 N code = CO2) ANION GAP (test code 11 0-20 N = GAP) GLUCOSE (test code = 170 mg/dL 70-110 H GLU) BLOOD UREA NITROGEN 12 mg/dL 7-18 N (test code = BUN) GLOMERULAR 84.7 70-80 H The Glomerular FILTRATION RATE Filtration R ate is a (test code = GFR) calculated parameterbased on serum Creatinine, pat ient age and sex. GFR va luesless than 60 mL/min/ 1.73 square meters a re indicative ofCh ronic Kidney Disease. Values less than 15 mL/min/1.73squa re meters indicate Kidney failure. The calculation forGFR is based on the CKD-EPI (2020) calculat ion. This formulais race indifferent and is the recommended for lida for GFRby the [facility] Kidney Foundati on for Adults.The GFR will not calculate if th e sex is unknown or if thepatient's ag e is <18 years. CREATININE (test 0.9 mg/dL 0.6-1.3 N code = CREAT) CALCIUM (test code = 7.8 mg/dL 8.0-10.5 L CA) [id number] 02:55:00 Test Item Value Reference Range Interpretation Comments MAGNESIUM (test code = MAG) 2.04 mg/dL 1.80-2.40 N CBC W/AUTO [id number] 02:52:00 Test Item Value Reference Range Interpretation Comments WHITE BLOOD CELL (test code = 10.2 x10 3/uL 4.5-11.0 N WBC) RED BLOOD CELL (test code = 2.65 x10 6/uL 4.00-5.60 L RBC) HEMOGLOBIN (test code = HGB) 7.9 g/dL 12.5-16.9 L HEMATOCRIT (test code = HCT) 24.2 % 37.5-50.7 L MEAN CELL VOLUME (test code = 91.3 fL 81.0-99.0 N MCV) MEAN CELL HGB (test code = MCH) 29.8 pg 27.0-33.0 N MEAN CELL HGB CONCETRATION 32.6 g/dL 33.0-37.0 L (test code = MCHC) RED CELL DISTRIBUTION WIDTH CV 14.0 % 11.5-14.5 N (test code = RDW) RED CELL DISTRIBUTION WIDTH SD 46.0 fL 37.0-54.0 N (test code = RDW-SD) PLATELET COUNT (test code = 107 x10 3/uL 150-400 L PLT) MEAN PLATELET VOLUME (test code 11.3 fL 7.0-9.0 H = MPV) NEUTROPHIL % (test code = NT%) 67.1 % 56.0-77.0 N IMMATURE GRANULOCYTE % (test 1.7 % 0.0-2.0 N code = IG%) LYMPHOCYTE % (test code = LY%) 18.6 % 14.0-32.0 N MONOCYTE % (test code = MO%) 9.8 % 4.8-9.0 H EOSINOPHIL % (test code = EO%) 2.5 % 0.3-3.7 N BASOPHIL % (test code = BA%) 0.3 % 0.0-2.0 N NUCLEATED RBC % (test code = 0.8 % 0-0 H NRBC%) NEUTROPHIL # (test code = NT#) 6.83 x10 3/uL 2.0-7.6 N IMMATURE GRANULOCYTE # (test 0.17 x10 3/uL 0.00-0.03 H code = IG#) LYMPHOCYTE # (test code = LY#) 1.89 x10 3/uL 1.0-3.8 N MONOCYTE # (test code = MO#) 1.00 x10 3/uL 0.1-0.8 H EOSINOPHIL # (test code = EO#) 0.25 x10 3/uL 0.0-0.2 H BASOPHIL # (test code = BA#) 0.03 x10 3/uL 0.0-0.2 N NUCLEATED RBC # (test code = 0.08 x10 3/uL 0.0-0.1 N NRBC#) MANUAL DIFF REQUIRED (test code NO = MDIFF) - XR CHEST 1 [id number] 00:00:00 [facility] 1940 Sex: M FAX: Mitesh Hopkins MD [phone] Cec[place]: St: ADM FAX: Abiodun Leavitt [phone] FAX: Kerri Laguerre [facility] [phone] Name: ODIN ZENG [facility] : 1940 Age/S: 83/M [address] [place] [address] Unit #:[id number] Loc: G.[address] [place] [address] Phys: Kerri Cassidy Physic Acct: [id number] Dis Date: Status: ADM IN PHONE #: [phone] Exam Date: 06/08/2023634 FAX #: [phone] Reason: Cardiac Surgery Post Op EXAMS: CPT CODE: [id number] XR CHEST 1 V 85853 PROCEDURE INFORMATION: Exam: XR Chest Exam date and time: 06/08/2023 5:54 AM Age: 83 years old Clinical indication: Condition or disease; Other: Cardiac surgery post op TECHNIQUE: Imaging protocol: Radiologic exam of the chest. Views: 1 view. COMPARISON: CR XR CHEST 1V 06/07/2023 5:10 AM FINDINGS: Lungs: There is minimal opacity at the left lung base. Pleural spaces: There is a very small left pleural effusion. No pneumothorax. Heart/Mediastinum: Heart size is within normal limits. Previous midline sternotomy and cardiac valve replacement. Bones/joints: Unremarkable. IMPRESSION: Minimal opacity at the left lung base with a very small left pleural effusion. at 0731 Reported and signed by: Elgin Henderson M.D. 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 [facility] GLUCOSE [id number] 16:45:00 Test Item Value Reference Range Interpretation Comments GLUCOSE BEDSIDE (test 207 MG/DL 70-110 H Perfor med by certified code = GLUBED) 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 [facility] - XR CHEST 1 [id number] 09:47:00 [facility] 1940 Sex: M FAX: Mitesh Hopkins MD [phone] [place]: St: ADM FAX: Abiodun Leavitt [phone] FAX: Kerri Laguerre y [phone] Name: ODIN ZENG [facility] [place] : 1940 Age/S: 83/M [address] [place] [address] Unit #: [id number] Loc: [place] [address] Phys: Kerri Cassidy Physic Acct: [id number] Dis Date: Status: ADM IN PHONE #: [phone] Exam Date: 06/07/2023 0656 FAX #: [phone] Reason: Cardiac Surgery Post Op EXAMS: CPT CODE: [id number] XR CHEST 1 V 92931 Location: H59 EXAM: - XR CHEST 1 V INDICATION: Cardiac Surgery Post Op COMPARISON: 06/06/2023 TECHNIQUE: AP Chest FINDINGS: Lines, tubes and hardware: Median sternotomy wires, an artificial heart valve, an atrial appendage occlusion device, and a cardiac loop recorder are approximately unchanged, when accounting for differences in technique. Lungs and pleura: There is a similar to slightly improved appearance of bilateral infrahilar/lower lobe opacities. Suspected unchanged small left-sided pleural effusion. No appreciable pneumothorax. Heart/mediastinum: The cardiomediastinal silhouette is stable. Similar appearance of suspected, trace pneumopericardium. Bones/soft tissues: No acute bony abnormality. IMPRESSION: 1. Slight apparent im provement of bilateral infrahilar/lower lobe opacities. However, interval differences may be secondary to differences in technique/positioning. 2. Suspected unchanged small left-sided pleural effusion.3. Trace, suspected but unchanged pneumopericardium. at 0947 Reported and signed by: Gary Cruz M.D. PAGE 1 Signed Report (CONTINUED) FAX: Mitesh Harris MD [phone] [place]: St: [facility] FAX: Abiodun Leavitt [phone] FAX: Kerri Laguerre [phone] Name[facility] [place] [facility] 1940 Age/S: 83/M [address] [place] [address] Unit #: [id number] Loc: [address] [place] [address] Phys: Kerri Cassidy Acct: [id number] Dis Date: Status: ADM IN PHONE #: [phone] Exam Date: 06/07/2023 0656 FAX #: [phone] Reason: Cardiac Surgery Post Op EXAMS: CPT CODE: [id number] XR CHEST 1 V 07154 (Continued) CC: Mitesh Muhammad MD; Abiodun Sanchez MD; Kerri Cassidy Technologist: RT Sarahy(R) Trnscrd Date/Time/By: 06/07/2023 (0947) : By: [email or web address] Orig Print D/T: S: 06/07/2023 (0950) PAGE 2 Signed ReportGLUCOSE [id number] 09:05:00 Test Item Value Reference Range Interpretation Comments GLUCOSE BEDSIDE (test 175 MG/DL 70-110 H [facility] med by certified code = GLUBED) 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 [facility] BASIC METABOLIC [id number] 03:25:00 Test Item Value Reference Range Interpretation Comments SODIUM (test code = 140 mEq/L 134-147 N NA) POTASSIUM (test code 4.1 mEq/L 3.4-5.0 N = K) CHLORIDE (test code 106 mEq/L 100-108 N = CL) CARBON DIOXIDE (test 27 mEq/l 21-33 N code = CO2) ANION GAP (test code 11 0-20 N = GAP) GLUCOSE (test code = 186 mg/dL 70-110 H GLU) BLOOD UREA NITROGEN 11 mg/dL 7-18 N (test code = BUN) GLOMERULAR 84.7 70-80 H The Glomerular FILTRATION RATE Filtration R ate is a (test code = GFR) calculated parameterbased on serum Creatinine, pat ient age and sex. GFR va luesless than 60 mL/min/ 1.73 square meters a re indicative ofCh ronic Kidney Disease. Values less than 15 mL/min/1.73squa re meters indicate Kidney failure. The calculation forGFR is based on the CKD-EPI (2020) calculat ion. This formulais race indifferent and is the recommended for lida for GFRby the [facility] Kid[facility] Foundati on for Adults.The GFR will not calculate if th e sex is unknown or if thepatient's ag e is <18 years. CREATININE (test 0.9 mg/dL 0.6-1.3 N code = CREAT) CALCIUM (test code = 7.5 mg/dL 8.0-10.5 L CA) HEPATIC FUNCTION [id number] 03:25:00 Test Item Value Reference Range Interpretation Comments TOTAL PROTEIN (test code = PROT) 5.4 g/dL 6.4-8.2 L ALBUMIN (test code = ALB) 2.90 g/dL 3.4-5.0 L BILIRUBIN TOTAL (test code = BILT) 0.50 mg/dL 0.0-1.0 N BILIRUBIN DIRECT (test code = 0.20 MG/DL 0.0-0.30 BILD) BILIRUBIN INDIRECT (test code = 0.30 MG/DL BILIND) SGOT/AST (test code = AST) 44 IUnit/L 15-37 H SGPT/ALT (test code = ALT) 20 IUnit/L 30-65 L ALKALINE PHOSPHATASE TOTAL (test 42 IUnit/L 20-125 N code = ALKP) [id number] 03:25:00 Test Item Value Reference Range Interpretation Comments MAGNESIUM (test code = MAG) 2.00 mg/dL 1.80-2.40 N CBC W/AUTO [id number] 03:11:00 Test Item Value Reference Range Interpretation Comments WHITE BLOOD CELL (test code = 11.0 x10 3/uL 4.5-11.0 N WBC) RED BLOOD CELL (test code = 2.51 x10 6/uL 4.00-5.60 L RBC) HEMOGLOBIN (test code = HGB) 7.7 g/dL 12.5-16.9 L HEMATOCRIT (test code = HCT) 22.9 % 37.5-50.7 L MEAN CELL VOLUME (test code = 91.2 fL 81.0-99.0 N MCV) MEAN CELL HGB (test code = MCH) 30.7 pg 27.0-33.0 N MEAN CELL HGB CONCETRATION 33.6 g/dL 33.0-37.0 N (test code = MCHC) RED CELL DISTRIBUTION WIDTH CV 13.9 % 11.5-14.5 N (test code = RDW) RED CELL DISTRIBUTION WIDTH SD 46.1 fL 37.0-54.0 N (test code = RDW-SD) PLATELET COUNT (test code = 89 x10 3/uL 150-400 L PLT) MEAN PLATELET VOLUME (test code 12.0 fL 7.0-9.0 H = MPV) NEUTROPHIL % (test code = NT%) 75.3 % 56.0-77.0 N IMMATURE GRANULOCYTE % (test 1.2 % 0.0-2.0 N code = IG%) LYMPHOCYTE % (test code = LY%) 14.2 % 14.0-32.0 N MONOCYTE % (test code = MO%) 7.3 % 4.8-9.0 N EOSINOPHIL % (test code = EO%) 1.8 % 0.3-3.7 N BASOPHIL % (test code = BA%) 0.2 % 0.0-2.0 N NUCLEATED RBC % (test code = 0.5 % 0-0 H NRBC%) NEUTROPHIL # (test code = NT#) 8.30 x10 3/uL 2.0-7.6 H IMMATURE GRANULOCYTE # (test 0.13 x10 3/uL 0.00-0.03 H code = IG#) LYMPHOCYTE # (test code = LY#) 1.57 x10 3/uL 1.0-3.8 N MONOCYTE # (test code = MO#) 0.81 x10 3/uL 0.1-0.8 H EOSINOPHIL # (test code = EO#) 0.20 x10 3/uL 0.0-0.2 N BASOPHIL # (test code = BA#) 0.02 x10 3/uL 0.0-0.2 N NUCLEATED RBC # (test code = 0.05 x10 3/uL 0.0-0.1 N NRBC#) MANUAL DIFF REQUIRED (test code NO = MDIFF) GLUCOSE [id number] 20:20:00 Test Item Value Reference Range Interpretation Comments GLUCOSE BEDSIDE (test 193 MG/DL 70-110 H Perfor med by certified code = GLUBED) 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 [facility] GLUCOSE [id number] 16:38:00 Test Item Value Reference Range Interpretation Comments GLUCOSE BEDSIDE (test 191 MG/DL 70-110 H Perfor med by certified code = GLUBED) 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5 mEq/L 3.4-5.0 N = K) CHLORIDE (test code 103 mEq/L 100-108 N = CL) CARBON DIOXIDE (test 25 mEq/l 21-33 N code = CO2) ANION GAP (test code 11 0-20 N = GAP) GLUCOSE (test code = 200 mg/dL 70-110 H GLU) BLOOD UREA NITROGEN 13 mg/dL 7-18 N (test code = BUN) GLOMERULAR 84.7 70-80 H The Glomerular FILTRATION RATE Filtration R ate is a (test code = GFR) calculated parameterbased on serum Creatinine, pat ient age and sex. GFR va luesless than 60 mL/min/ 1.73 square meters a re indicative ofCh ronic Kidney Disease. Values less than 15 mL/min/1.73squa re meters indicate Kidney failure. The calculation forGFR is based on the CKD-EPI (2020) calculat ion. This formulais race indifferent and is the recommended for lida for GFRby the [facility] Kidney Foundati on for Adults.The GFR will not calculate if th e sex is unknown or if thepatient's ag e is <18 years. CREATININE (test 0.9 mg/dL 0.6-1.3 N code = CREAT) CALCIUM (test code = 8.3 mg/dL 8.0-10.5 N CA) COMMENTS: POD #1HEPATIC FUNCTION [id number] 04:21:00 Test Item Value Reference Range Interpretation Comments TOTAL PROTEIN (test code = PROT) 5.6 g/dL 6.4-8.2 L ALBUMIN (test code = ALB) 3.10 g/dL 3.4-5.0 L BILIRUBIN TOTAL (test code = BILT) 0.60 mg/dL 0.0-1.0 BILIRUBIN DIRECT (test code = 0.30 MG/DL 0.0-0.30 BILD) BILIRUBIN INDIRECT (test code = 0.30 MG/DL BILIND) SGOT/AST (test code = AST) 66 IUnit/L 15-37 H SGPT/ALT (test code = ALT) 22 IUnit/L 30-65 L ALKALINE PHOSPHATASE TOTAL (test 46 IUnit/L 20-125 code = ALKP) COMMENTS: POD #[id number] 04:21:00 Test Item Value Reference Range Interpretation Comments MAGNESIUM (test code = MAG) 2.03 mg/dL 1.80-2.40 N COMMENTS: POD #1CBC W/AUTO [id number] 03:58:00 Test Item Value Reference Range Interpretation Comments WHITE BLOOD CELL (test code = 13.8 x10 3/uL 4.5-11.0 H WBC) RED BLOOD CELL (test code = 2.86 x10 6/uL 4.00-5.60 L RBC) HEMOGLOBIN (test code = HGB) 8.6 g/dL 12.5-16.9 L HEMATOCRIT (test code = HCT) 25.3 % 37.5-50.7 L MEAN CELL VOLUME (test code = 88.5 fL 81.0-99.0 N MCV) MEAN CELL HGB (test code = 30.1 pg 27.0-33.0 N MCH) MEAN CELL HGB CONCETRATION 34.0 g/dL 33.0-37.0 N (test code = MCHC) RED CELL DISTRIBUTION WIDTH CV 14.3 % 11.5-14.5 N (test code = RDW) RED CELL DISTRIBUTION WIDTH SD 45.8 fL 37.0-54.0 N (test code = RDW-SD) PLATELET COUNT (test code = 61 x10 3/uL 150-400 L PLT) MEAN PLATELET VOLUME (test 11.5 fL 7.0-9.0 H code = MPV) NEUTROPHIL % (test code = NT%) 75.3 % 56.0-77.0 N IMMATURE GRANULOCYTE % (test 1.2 % 0.0-2.0 N code = IG%) LYMPHOCYTE % (test code = LY%) 15.2 % 14.0-32.0 N MONOCYTE % (test code = MO%) 7.0 % 4.8-9.0 N EOSINOPHIL % (test code = EO%) 1.1 % 0.3-3.7 N BASOPHIL % (test code = BA%) 0.2 % 0.0-2.0 N NUCLEATED RBC % (test code = 0.0 % 0-0 N NRBC%) NEUTROPHIL # (test code = NT#) 10.36 x10 3/uL 2.0-7.6 H IMMATURE GRANULOCYTE # (test 0.16 x10 3/uL 0.00-0.03 H code = IG#) LYMPHOCYTE # (test code = LY#) 2.09 x10 3/uL 1.0-3.8 N MONOCYTE # (test code = MO#) 0.96 x10 3/uL 0.1-0.8 H EOSINOPHIL # (test code = EO#) 0.15 x10 3/uL 0.0-0.2 N BASOPHIL # (test code = BA#) 0.03 x10 3/uL 0.0-0.2 N NUCLEATED RBC # (test code = 0.00 x10 3/uL 0.0-0.1 N NRBC#) MANUAL DIFF REQUIRED (test NO code = MDIFF) - XR CHEST 1 [id number] 00:00:00 [facility] 1940 Sex: M FAX: Mitesh Hopkins MD [phone] Cecilia: St: ADM FAX: Lamar Sanchez Abdbetty Olveranan [phone] FAX: Kerri Laguerre [facility] [phone] Name: ODIN ZENG [facility] : 1940 Age/S: 83/M [address] [place] [address] Unit #:[id number] Loc: G.[address] [place] [address] Phys: Kerri Cassidy Physic Acct: [id number] Dis Date: Status: ADM IN PHONE #: [phone] Exam Date: 06/06/2023506 FAX #: [phone] Reason: Cardiac Surgery Post Op EXAMS: CPT CODE: [id number] XR CHEST 1 V 80425 PROCEDURE INFORMATION: Exam: XR Chest Exam date and time: 06/06/2023 5:06 AM Age: 83 years old Clinical indication: Other: Cardiac surgery post op TECHNIQUE: Imaging protocol: Radiologic exam of the chest. Views: 1 view. COMPARISON: 1. CR XR CHEST 1V 06/04/2023 5:05 AM 2. CR XR CHEST 1V 06/03/2023 4:59 PM 3. CR XR CHEST 1V 06/05/2023 5:20 AM FINDINGS: Limitations: Suboptimal positioning with skin folds overlying the apices. Tubes, catheters and devices: Right internal jugular sheath has been removed. Mitral valve prosthesis and atrial appendage occlusion device are stable. Cardiac monitoring device overlies the left hemithorax. Lungs: Indistinct opacities in the lower lung zones slightly increased. Retrocardiac opacity obscuring the left hemidiaphragm is unchanged. Pleural spaces: There is no pneumothorax. Skin folds noted overlying the apices. Small volume left pleural effusion unchanged. Heart/Mediastinum: The cardiomediastinal silhouette is stable. Residual small volume pneumopericardium, stable to diminished. Bones/joints: Sternotomy wires are intact. IMPRESSION: 1. Increased bibasilar pulmonary opacities. Edema suspected with inflammation in the differential. Atelectasis and layering pleural fluid could have a similar appearance.2. Stable left basilar pleuroparenchymal changes. 3. Stable postoperative cardiomediastinal silhouette with residual small volume pneumopericardium. at 0825 Reported and signed by: Fredrick Wills M.D. PAGE 1 Signed Report (CONTINUED) FAX: Mitesh Harris MD [phone] Cecilia: St: ADM FAX: Abiodun Leavitt [phone] FAX: Kerri Laguerre [phone] Name: ODIN ZENG [facility] : 1940 Age/S: 83/M [address] [place] [address] Unit #: [id number] Loc: [address] [address] Phys: Kerri Cassidy Acct: [id number] Dis Date: Status: ADM IN PHONE #: [phone] Exam Date: 06/06/2023 050 FAX #: [phone] Reason: Cardiac Surgery Post Op EXAMS: CPT CODE: [id number] XR CHEST 1 V 75111 (Continued) CC: Mitesh Muhammad MD; Abiodun Sanchez MD; Kerri Cassidy Technologist: RT Katalina(R) Trnfidel Date/Time/By: 06/06/2023 (824) : By: Walker Orig Print D/T: S: 06/06/2023 (3007) PAGE 2 Signed ReportGLUCOSE [id number] 20:06:00 Test Item Value Reference Range Interpretation Comments GLUCOSE BEDSIDE (test 230 MG/DL 70-110 H Perfor med by certified code = GLUBED) 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 [facility] GLUCOSE [id number] 17:23:00 Test Item Value Reference Range Interpretation Comments GLUCOSE BEDSIDE (test 225 MG/DL 70-110 H Perfor med by certified code = GLUBED) 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 [facility] [id number] 12:22:00 Test Item Value Reference Interpretation Comments Range SURGICAL (test code = SR) RUN DATE: 06/05/23 [place] [facility] PAGE 1 RUN TIME: 1222 Specimen Inquiry RUN USER: INTERFACE PATIENT: ODIN ZENG LOC: DankMADI U #: [id number] AGE/SX: 83/M ROOM: [facility] [place] RE06/03/23REG DR: Abiodun Sanchez : 40 BED: 1 DIS: STATUS: ADM IN TLOC: SPEC #: [id number] RECD: 06/04/23 STATUS: REBA GUY #: [id number] TRINI: 06/03/23- SUBM DR: Abiodun Sanchez MD ENTERED: 06/04/23 SP TYPE: SURGICAL OTHR DR: Yosi Gomez MD, Molham MD Barr, David T MDORDERED: 22438, ANATOMIC SPEC COPIES TO: Yosi Gomez MD [address] [id number] Molina Diggs MD [address] [id number] Mitesh Muhammad MD [address] [place] [address] Abiodun Sanchez MD [address] [facility]. [address] [place], [place] [address] PROCEDURES: 25222 (06/04/23) TISSUES: A. 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 GROSS DESCRIPTION Received in formalin labeled "mitral valve leaflets" are 2 fragments of atkins-white calcifiedheart valve leaflets, up to 2.5 cm in maximum dimension, sectioned and entirely submitted(A). [facility],[address] [place] [address], [place] [address] CONTINUED ON NEXT PAGE RUN DATE: 06/05/23 [employer] - LAB PAGE 2 RUN TIME: 1222 Specimen Inquiry RUN USER: INTERFACE SPEC #: [id number] PATIENT: ODIN ZENG #[id number] (Continued) - GROSS DESCRIPTION (Continued) Unless gross only, the diagnosis is based upon microscopic examination.Immunohistochemistry: This test was developed and its performance characteristicsdetermined by this laboratory. It has not been approved nor does it need approvalby the [place] FDA. Appropriate positive and negative controls are reviewed and judgedto be acceptable for performedimmunohistochemistry and/or special stains. This laboratoryis certified under the Clinical Laboratory Improvement Amendments (CLIA-88) as qualified toperform high complexity clinical laboratory testing. 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 Thepositive or negative result should b e used with otherinformatio n, including the c linical context, in for marizol adiagnosis such as the 4T score and the 2 013 [place] [employer] Hematology guid elines. NEGATIVE result s indicate the absence of Platelet Factor 4Heparin -Dependent Antibodies to I gG, IgM or IgA. A negative result for anti-PF4 hepari n antibodies can support theclinical dec ision to exclude the pre sence of HIT, andtherefo re continue heparin treatme nt. POSITIVE result s indicate the presence of Platelet Factor 4Heparin -Dependent Antibodies to I gG, IgM or IgA. Although a positive result obtained using this assay may indic ate thepresence of heparin-associa bucky antibodies, a p ositive resultDOES NOT CONFIRM the diagnosis of HI T. Confirmation wi th afunctional lucho t is recommended. A clinical reassesmentsupp orted by laboratory data should be performed beforeconfirmat ion or exclusion of th e diagnosis. Some patientsmay hav e naturally occurring antib odies to PF4. If clinica lly indicated, a re peat study is recommended in2-3 days after the patie nt has been off heparin for at least4 hours. [Automat ed message] The system [employer] generated this result tra nsmitted reference range : (). The reference range was not used to interpr et this result as isabell l/abnormal. BASIC METABOLIC [id number] 03:32:00 Test Item Value Reference Range Interpretation Comments SODIUM (test code = 134 mEq/L 134-147 N NA) POTASSIUM (test code 3.8 mEq/L 3.4-5.0 N = K) CHLORIDE (test code 104 mEq/L 100-108 N = CL) CARBON DIOXIDE (test 25 mEq/l 21-33 N code = CO2) ANION GAP (test code 9 0-20 N = GAP) GLUCOSE (test code = 208 mg/dL 70-110 H GLU) BLOOD UREA NITROGEN 13 mg/dL 7-18 N (test code = BUN) GLOMERULAR 87.8 70-80 H The Glomerular FILTRATION RATE Filtration R ate is a (test code = GFR) calculated parameterbased on serum Creatinine, pat ient age and sex. GFR va luesless than 60 mL/min/ 1.73 square meters a re indicative ofCh ronic Kidney Disease. Values less than 15 mL/min/1.73squa re meters indicate Kidney failure. The calculation forGFR is based on the CKD-EPI (2020) calculat ion. This formulais race indifferent and is the recommended for lida for GFRby the [facility] on for Adults.The GFR will not calculate if th e sex is unknown or if thepatient's ag e is <18 years. CREATININE (test 0.8 mg/dL 0.6-1.3 N code = CREAT) CALCIUM (test code = 7.9 mg/dL 8.0-10.5 L CA) COMMENTS: POD #1HEPATIC FUNCTION [id number] 03:32:00 Test Item Value Reference Range Interpretation Comments TOTAL PROTEIN (test code = PROT) 5.4 g/dL 6.4-8.2 L ALBUMIN (test code = ALB) 3.50 g/dL 3.4-5.0 N BILIRUBIN TOTAL (test code = BILT) 1.00 mg/dL 0.0-1.0 BILIRUBIN DIRECT (test code = 0.50 MG/DL 0.0-0.30 H BILD) BILIRUBIN INDIRECT (test code = 0.50 MG/DL BILIND) SGOT/AST (test code = AST) 64 IUnit/L 15-37 H SGPT/ALT (test code = ALT) 14 IUnit/L 30-65 L ALKALINE PHOSPHATASE TOTAL (test 30 IUnit/L 20-125 code = ALKP) COMMENTS: POD #[id number] 03:32:00 Test Item Value Reference Range Interpretation Comments MAGNESIUM (test code = MAG) 2.18 mg/dL 1.80-2.40 N COMMENTS: POD #1CBC W/AUTO [id number] 03:18:00 Test Item Value Reference Range Interpretation Comments WHITE BLOOD CELL (test code = 14.0 x10 3/uL 4.5-11.0 H WBC) RED BLOOD CELL (test code = 2.91 x10 6/uL 4.00-5.60 L RBC) HEMOGLOBIN (test code = HGB) 8.9 g/dL 12.5-16.9 L HEMATOCRIT (test code = HCT) 26.0 % 37.5-50.7 L MEAN CELL VOLUME (test code = 89.3 fL 81.0-99.0 N MCV) MEAN CELL HGB (test code = 30.6 pg 27.0-33.0 N MCH) MEAN CELL HGB CONCETRATION 34.2 g/dL 33.0-37.0 N (test code = MCHC) RED CELL DISTRIBUTION WIDTH CV 14.9 % 11.5-14.5 H (test code = RDW) RED CELL DISTRIBUTION WIDTH SD 48.2 fL 37.0-54.0 N (test code = RDW-SD) PLATELET COUNT (test code = 59 x10 3/uL 150-400 L PLT) MEAN PLATELET VOLUME (test 12.0 fL 7.0-9.0 H code = MPV) NEUTROPHIL % (test code = NT%) 79.8 % 56.0-77.0 H IMMATURE GRANULOCYTE % (test 0.6 % 0.0-2.0 N code = IG%) LYMPHOCYTE % (test code = LY%) 10.1 % 14.0-32.0 L MONOCYTE % (test code = MO%) 9.2 % 4.8-9.0 H EOSINOPHIL % (test code = EO%) 0.2 % 0.3-3.7 L BASOPHIL % (test code = BA%) 0.1 % 0.0-2.0 N NUCLEATED RBC % (test code = 0.0 % 0-0 N NRBC%) NEUTROPHIL # (test code = NT#) 11.14 x10 3/uL 2.0-7.6 H IMMATURE GRANULOCYTE # (test 0.09 x10 3/uL 0.00-0.03 H code = IG#) LYMPHOCYTE # (test code = LY#) 1.41 x10 3/uL 1.0-3.8 N MONOCYTE # (test code = MO#) 1.28 x10 3/uL 0.1-0.8 H EOSINOPHIL # (test code = EO#) 0.03 x10 3/uL 0.0-0.2 N BASOPHIL # (test code = BA#) 0.02 x10 3/uL 0.0-0.2 N NUCLEATED RBC # (test code = 0.00 x10 3/uL 0.0-0.1 N NRBC#) MANUAL DIFF REQUIRED (test NO code = MDIFF) POC ARTERIAL BLOOD [id number] 03:05:00 Test Item Value Reference Range Interpretation Comments POC ARTERIAL BLOOD GAS PH (test 7.464 7.35-7.45 H code = POCPHA) POC ARTERIAL BLOOD GAS PCO2 (test 33.6 mmHg 35.0-45 L code = NYKLKR0M) POC TCO2 ARTERIAL (test code = 24.8 POCTCO2) POC ARTERIAL BLOOD GAS PO2 (test 61.6 mmHg 80-100.0 L code = KWCJR2V) POC HCO3 ARTERIAL (test code = 23.9 MMOL/L 22.0-26.0 N [id number]) POC BASE EXCESS (test code = 0.4 MMOL/L -4.0-4.0 N POCBEA) POC O2 SATURATION (test code = 91.4 % 90-100 N POCO2S) ABG DELIVERY (test code = MICHELLE) room air ABG TEMPERATURE (test code = 100.8 F TEMPA) ABG SITE (test code = SITEA) Art Line SALAS'S TEST (test code = ALLENS) N/A BASIC METABOLIC [id number] 03:05:00 Test Item Value Reference Range Interpretation Comments SODIUM (test code = NA/ABG) 134 mmol/L 134-147 N POTASSIUM (test code = K/ABG) 3.9 mmol/L 3.4-5.0 N CHLORIDE (test code = CL/ABG) 100 mmol/L 100-108 N CREATININE ABG (test code = 0.8 mg/dL 0.8-1.3 N CREAABG) POC IONIZED CALCIUM (test code = 1.15 MMOL/L 1.12-1.32 N POCCA) POC GLUCOSE (test code = POCGLU) 203 MG/DL 70-110 H HEMOGLOBIN [id number] 03:05:00 Test Item Value Reference Range Interpretation Comments HEMOGLOBIN ABG (test code = HGB/ABG) 8.9 G/DL 12.5-16.9 L [id number] 03:05:00 Test Item Value Reference Range Interpretation Comments HEMATOCRIT (test code = HCT/ABG) 26 % 37.5-50.7 L POC LACTIC [id number] 03:05:00 Test Item Value Reference Range Interpretation Comments POC LACTIC ACID (test code = 1.1 mmol/l 0.9-1.7 N POCLAC) - XR CHEST 1 [id number] 00:00:00 [facility] 1940 Sex: M FAX: Mitesh Hopkins MD [phone] [place]: St: [facility] FAX: Abiodun Leavitt [phone] FAX: Kerri Laguerre Phy [phone] Name: ODIN ZENG [facility] : 1940 Age/S: 83/M [address] [place] [address] Unit #:[id number] Loc: G.2202 [place] [address] Phys: Kerri Cassidy Acct: [id number] Dis Date: Status: ADM IN PHONE #: [phone] Exam Date: 06/05/2023 0636 FAX #: [phone] Reason: Cardiac Surgery Post Op EXAMS: CPT CODE: [id number] XR CHEST 1 V [id number] PROCEDURE INFORMATION: Exam: XR Chest Exam date and time: 06/05/2023 5:20 AM Age: 83 years old Clinical indication: Other: Cardiac surgery post op TECHNIQUE: Imaging protocol: Radiologic exam of the chest. Views: 1 view. COMPARISON: CR XR CHEST 1V 06/04/2023 5:05 AM FINDINGS: Tubes, catheters and devices: Austin-Portia catheter has been removed. Implanted court bailiff or sheriff device overlies the left chest. Left atrial appendage closure device is demonstrated. Lungs: Moderate degree bilateral perihilar and basilar interstitial alveolar pulmonary edema versus infiltrates, pneumonia within the lungs. The pulmonary opacities are most prominent within the lower left lung. Progression of lung opacities is demonstrated. The bilateral lung apices appear clear. Pleural spaces: Small volume of pleural fluid is demonstrated within the left side. Heart/Mediastinum: Mechanical cardiac valve is demonstrated. Cardiac silhouette appears mildly enlarged. Bones/joints: No acute bony abnormality identified. Soft tissues: Right neck sheath tip is positioned over the upper chest region. Limited visualization of the midline upper chest, secondary to overlying head position. IMPRESSION: 1. Small left pleural effusion. 2. Moderate pulmonary edema versus infiltrates, pneumonia. 3. Mild enlarged cardiac silhouette. at 0952 Reported and signed by: Scottie Bella M.D. 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 [facility] BASIC METABOLIC [id number] 19:01:00 Test Item Value Reference Range Interpretation Comments SODIUM (test code = 136 mEq/L 134-147 N NA) POTASSIUM (test code 4.3 mEq/L 3.4-5.0 N = K) CHLORIDE (test code 105 mEq/L 100-108 N = CL) CARBON DIOXIDE (test 24 mEq/l 21-33 N code = CO2) ANION GAP (test code 11 0-20 N = GAP) GLUCOSE (test code = 201 mg/dL 70-110 H GLU) BLOOD UREA NITROGEN 16 mg/dL 7-18 N (test code = BUN) GLOMERULAR 84.7 70-80 H The Glomerular FILTRATION RATE Filtration R ate is a (test code = GFR) calculated parameterbased on serum Creatinine, pat ient age and sex. GFR va luesless than 60 mL/min/ 1.73 square meters a re indicative ofCh ronic Kidney Disease. Values less than 15 mL/min/1.73squa re meters indicate Kidney failure. The calculation forGFR is based on the CKD-EPI (2020) calculat ion. This formulais race indifferent and is the recommended for lida for GFRby the [facility] on for Adults.The GFR will not calculate if th e sex is unknown or if thepatient's ag e is <18 years. CREATININE (test 0.9 mg/dL 0.6-1.3 N code = CREAT) CALCIUM (test code = 7.9 mg/dL 8.0-10.5 L CA) CBC W/AUTO [id number] 18:57:00 Test Item Value Reference Range Interpretation Comments WHITE BLOOD CELL (test code = 13.7 x10 3/uL 4.5-11.0 H WBC) RED BLOOD CELL (test code = 2.97 x10 6/uL 4.00-5.60 L RBC) HEMOGLOBIN (test code = HGB) 8.7 g/dL 12.5-16.9 L HEMATOCRIT (test code = HCT) 26.1 % 37.5-50.7 L MEAN CELL VOLUME (test code = 87.9 fL 81.0-99.0 MCV) MEAN CELL HGB (test code = 29.3 pg 27.0-33.0 N MCH) MEAN CELL HGB CONCETRATION 33.3 g/dL 33.0-37.0 N (test code = MCHC) RED CELL DISTRIBUTION WIDTH CV 14.6 % 11.5-14.5 H (test code = RDW) RED CELL DISTRIBUTION WIDTH SD 47.3 fL 37.0-54.0 N (test code = RDW-SD) PLATELET COUNT (test code = 67 x10 3/uL 150-400 L PLT) MEAN PLATELET VOLUME (test 11.8 fL 7.0-9.0 H code = MPV) NEUTROPHIL % (test code = NT%) 78.4 % 56.0-77.0 H IMMATURE GRANULOCYTE % (test 0.7 % 0.0-2.0 N code = IG%) LYMPHOCYTE % (test code = LY%) 10.7 % 14.0-32.0 L MONOCYTE % (test code = MO%) 10.0 % 4.8-9.0 H EOSINOPHIL % (test code = EO%) 0.1 % 0.3-3.7 L BASOPHIL % (test code = BA%) 0.1 % 0.0-2.0 N NUCLEATED RBC % (test code = 0.0 % 0-0 N NRBC%) NEUTROPHIL # (test code = NT#) 10.78 x10 3/uL 2.0-7.6 H IMMATURE GRANULOCYTE # (test 0.09 x10 3/uL 0.00-0.03 H code = IG#) LYMPHOCYTE # (test code = LY#) 1.47 x10 3/uL 1.0-3.8 N MONOCYTE # (test code = MO#) 1.37 x10 3/uL 0.1-0.8 H EOSINOPHIL # (test code = EO#) 0.01 x10 3/uL 0.0-0.2 N BASOPHIL # (test code = BA#) 0.01 x10 3/uL 0.0-0.2 N NUCLEATED RBC # (test code = 0.00 x10 3/uL 0.0-0.1 N NRBC#) MANUAL DIFF REQUIRED (test NO code = MDIFF) GLUCOSE [id number] 17:13:00 Test Item Value Reference Range Interpretation Comments GLUCOSE BEDSIDE (test 200 MG/DL 70-110 H [facility] med by certified code = GLUBED) 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 [facility] GLUCOSE [id number] 12:49:00 Test Item Value Reference Range Interpretation Comments GLUCOSE BEDSIDE (test 163 MG/DL 70-110 H Perfor med by certified code = GLUBED) 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 [facility] LACTIC ACID 2ND [id number] 09:49:00 Test Item Value Reference Range Interpretation Comments LACTIC ACID 2ND REPEAT (test code 4.6 mmol/L 0.4-1.9 HH = LACT2) GLUCOSE [id number] 09:13:00 Test Item Value Reference Range Interpretation Comments GLUCOSE BEDSIDE (test 151 MG/DL 70-110 H Perfor med by certified code = GLUBED) 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 [facility] CBC W/AUTO [id number] 06:27:00 Test Item Value Reference Range Interpretation Comments WHITE BLOOD CELL (test code = 14.1 x10 3/uL 4.5-11.0 H WBC) RED BLOOD CELL (test code = 2.48 x10 6/uL 4.00-5.60 L RBC) HEMOGLOBIN (test code = HGB) 7.7 g/dL 12.5-16.9 L HEMATOCRIT (test code = HCT) 23.0 % 37.5-50.7 L MEAN CELL VOLUME (test code = 92.7 fL 81.0-99.0 N MCV) MEAN CELL HGB (test code = 31.0 pg 27.0-33.0 N MCH) MEAN CELL HGB CONCETRATION 33.5 g/dL 33.0-37.0 N (test code = MCHC) RED CELL DISTRIBUTION WIDTH CV 13.2 % 11.5-14.5 N (test code = RDW) RED CELL DISTRIBUTION WIDTH SD 44.8 fL 37.0-54.0 N (test code = RDW-SD) PLATELET COUNT (test code = 87 x10 3/uL 150-400 L PLT) MEAN PLATELET VOLUME (test 11.6 fL 7.0-9.0 H code = MPV) NEUTROPHIL % (test code = NT%) 84.6 % 56.0-77.0 H IMMATURE GRANULOCYTE % (test 0.5 % 0.0-2.0 N code = IG%) LYMPHOCYTE % (test code = LY%) 5.4 % 14.0-32.0 L MONOCYTE % (test code = MO%) 9.4 % 4.8-9.0 H EOSINOPHIL % (test code = EO%) 0.0 % 0.3-3.7 L BASOPHIL % (test code = BA%) 0.1 % 0.0-2.0 N NUCLEATED RBC % (test code = 0.0 % 0-0 N NRBC%) NEUTROPHIL # (test code = NT#) 11.92 x10 3/uL 2.0-7.6 H IMMATURE GRANULOCYTE # (test 0.07 x10 3/uL 0.00-0.03 H code = IG#) LYMPHOCYTE # (test code = LY#) 0.76 x10 3/uL 1.0-3.8 L MONOCYTE # (test code = MO#) 1.33 x10 3/uL 0.1-0.8 H EOSINOPHIL # (test code = EO#) 0.00 x10 3/uL 0.0-0.2 N BASOPHIL # (test code = BA#) 0.02 x10 3/uL 0.0-0.2 N NUCLEATED RBC # (test code = 0.00 x10 3/uL 0.0-0.1 N NRBC#) MANUAL DIFF REQUIRED (test NO code = MDIFF) PLT [id number] 06:27:00 Test Item Value Reference Range Interpretation Comments PLATELET ESTIMATE (test code 80-100 THOUSAND ADEQUATE = PLTEST) PLATELET MORPHOLOGY (test NORMAL code = PLTMORPH) BASIC METABOLIC [id number] 05:40:00 Test Item Value Reference Range Interpretation Comments SODIUM (test code = 144 mEq/L 134-147 N NA) POTASSIUM (test code 4.3 mEq/L 3.4-5.0 N = K) CHLORIDE (test code 110 mEq/L 100-108 H = CL) CARBON DIOXIDE (test 24 mEq/l 21-33 N code = CO2) ANION GAP (test code 15 0-20 N = GAP) GLUCOSE (test code = 137 mg/dL 70-110 H GLU) BLOOD UREA NITROGEN 14 mg/dL 7-18 N (test code = BUN) GLOMERULAR 74.7 70-80 N The Glomerular FILTRATION RATE Filtration R ate is a (test code = GFR) calculated parameterbased on serum Creatinine, pat ient age and sex. GFR va luesless than 60 mL/min/ 1.73 square meters a re indicative ofCh ronic Kidney Disease. Values less than 15 mL/min/1.73squa re meters indicate Kidney failure. The calculation forGFR is based on the CKD-EPI (2020) calculat ion. This formulais race indifferent and is the recommended for lida for GFRby the [facility] on for Adults.The GFR will not calculate if th e sex is unknown or if thepatient's ag e is <18 years. CREATININE (test 1.0 mg/dL 0.6-1.3 N code = CREAT) CALCIUM (test code = 7.9 mg/dL 8.0-10.5 L CA) COMMENTS: POD #1HEPATIC FUNCTION [id number] 05:40:00 Test Item Value Reference Range Interpretation Comments TOTAL PROTEIN (test code = PROT) 5.3 g/dL 6.4-8.2 L ALBUMIN (test code = ALB) 3.90 g/dL 3.4-5.0 N BILIRUBIN TOTAL (test code = BILT) 0.50 mg/dL 0.0-1.0 N BILIRUBIN DIRECT (test code = 0.30 MG/DL 0.0-0.30 N BILD) BILIRUBIN INDIRECT (test code = 0.20 MG/DL BILIND) SGOT/AST (test code = AST) 61 IUnit/L 15-37 H SGPT/ALT (test code = ALT) 11 IUnit/L 30-65 L ALKALINE PHOSPHATASE TOTAL (test 19 IUnit/L 20-125 L code = ALKP) COMMENTS: POD #[id number] 05:40:00 Test Item Value Reference Range Interpretation Comments MAGNESIUM (test code = MAG) 2.36 mg/dL 1.80-2.40 N COMMENTS: POD #1LACTIC ACID [id number] 05:06:00 Test Item Value Reference Range Interpretation Comments LACTIC ACID REPEAT (test code = 3.8 mmol/l 0.4-1.9 H LACTR) POC ARTERIAL BLOOD [id number] 04:14:00 Test Item Value Reference Range Interpretation Comments POC ARTERIAL BLOOD GAS PH (test 7.415 7.35-7.45 N code = POCPHA) POC ARTERIAL BLOOD GAS PCO2 (test 37.5 mmHg 35.0-45 N code = [id number]) POC TCO2 ARTERIAL (test code = 24.9 POCTCO2) POC ARTERIAL BLOOD GAS PO2 (test 90.6 mmHg 80-100.0 N code = EQJZK7G) POC HCO3 ARTERIAL (test code = 23.8 MMOL/L 22.0-26.0 N [id number]) POC BASE EXCESS (test code = -0.5 MMOL/L -4.0-4.0 N POCBEA) POC O2 SATURATION (test code = 96.7 % 90-100 N POCO2S) ABG DELIVERY (test code = MICHELLE) Cannula ABG TEMPERATURE (test code = 100.6 F TEMPA) ABG SITE (test code = SITEA) Art Line SALAS'S TEST (test code = ALLENS) N/A BASIC METABOLIC [id number] 04:14:00 Test Item Value Reference Range Interpretation Comments SODIUM (test code = NA/ABG) 142 mmol/L 134-147 N POTASSIUM (test code = K/ABG) 4.3 mmol/L 3.4-5.0 N CHLORIDE (test code = CL/ABG) 108 mmol/L 100-108 N CREATININE ABG (test code = 0.9 mg/dL 0.8-1.3 N CREAABG) POC IONIZED CALCIUM (test code = 1.10 MMOL/L 1.12-1.32 L POCCA) POC GLUCOSE (test code = POCGLU) 138 MG/DL 70-110 H HEMOGLOBIN [id number] 04:14:00 Test Item Value Reference Range Interpretation Comments HEMOGLOBIN ABG (test code = HGB/ABG) 7.5 G/DL 12.5-16.9 L [id number] 04:14:00 Test Item Value Reference Range Interpretation Comments HEMATOCRIT (test code = HCT/ABG) 22 % 37.5-50.7 L POC LACTIC [id number] 04:14:00 Test Item Value Reference Range Interpretation Comments POC LACTIC ACID (test code = 3.8 mmol/l 0.9-1.7 H POCLAC) GLUCOSE [id number] 02:26:00 Test Item Value Reference Range Interpretation Comments GLUCOSE BEDSIDE (test 129 MG/DL 70-110 H Perfor med by certified code = GLUBED) 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 : 1940 Age/S: 83/M [address] [place] [address] Unit #:[id number] Loc: [address] [place] [address] Phys: Kerri Cassidy Acct: [id number] Dis Date: Status: ADM IN PHONE #: [phone] Exam Date: 06/04/2023 050 FAX #: [phone] Reason: Cardiac Surgery Post Op EXAMS: CPT CODE: [id number] XR CHEST 1 V [id number] PROCEDURE INFORMATION: Exam: XR Chest Exa m date and time: 06/04/2023 5:05 AM Age: 83 years old Clinical indication: Other: Cardiac surgery post op TECHNIQUE: Imaging protocol: Radiologic exam of the chest. Views: 1 view. COMPARISON: CR XR CHEST 1V 06/03/2023 4:59 PM FINDINGS: Tubes, catheters and devices: Right IJ catheter terminating in the main pulmonary artery. Mediastinal drains. Lungs: Mildly increased bibasilar airspace opacities. Pleural spaces: No pleural effusion. No pneumothorax. Heart/Mediastinum: Mitral valve replacement present.Enlargement of the cardiomediastinal silhouette. Cardiac loop optometric technologist noted. Left atrial occlusion device present. Bones/joints: Intact median sternotomy wires.. IMPRESSION: 1. Mildly increased bibasilar airspace opacities. Differential considerations include aspiration, atelectasis versus pneumonia.2. Lines and tubes as above. [id number] Reported and signed by: Som Lemus M.D. CC: Mitesh Muhammad MD; Abiodun Sanchez MD; Kerri Cassidy Technologist: Judy Todd, RT(R) Trnscrd Date/Time/By: 06/04/2023 (935) :By: [email or web address] Orig Print D/T: S: 06/04/2023 (935) PAGE 1 Signed ReportBASIC METABOLIC [id number] 22:38:00 Test Item Value Reference Range Interpretation Comments SODIUM (test code = NA/ABG) 144 mmol/L 134-147 N POTASSIUM (test code = K/ABG) 3.8 mmol/L 3.4-5.0 N CHLORIDE (test code = CL/ABG) 107 mmol/L 100-108 N CREATININE ABG (test code = 0.9 mg/dL 0.8-1.3 N CREAABG) POC IONIZED CALCIUM (test code = 1.14 MMOL/L 1.12-1.32 N POCCA) POC GLUCOSE (test code = POCGLU) 146 MG/DL 70-110 H HEMOGLOBIN [id number] 22:38:00 Test Item Value Reference Range Interpretation Comments HEMOGLOBIN ABG (test code = HGB/ABG) 9.1 G/DL 12.5-16.9 L [id number] 22:38:00 Test Item Value Reference Range Interpretation Comments HEMATOCRIT (test code = HCT/ABG) 27 % 37.5-50.7 L POC LACTIC [id number] 22:38:00 Test Item Value Reference Range Interpretation Comments POC LACTIC ACID (test code = 6.9 mmol/l 0.9-1.7 HH POCLAC) POC VENOUS BLOOD [id number] 22:38:00 Test Item Value Reference Range Interpretation Comments SALAS'S TEST (test code = ALLENS) N/A POC VENOUS BLOOD GAS PH (test 7.307 7.33-7.45 L code = POCPHV) POC VENOUS BLOOD GAS PCO2 (test 47.6 mmHg 43-47 H code = GBKRSI3A) POC VENOUS BLOOD GAS PO2 (test 33.3 mmHG 10-50 N code = OJDBX1B) POC TCO2 VENOUS (test code = 25.1 DXKHSB0I) POC HCO3 VENOUS (test code = 23.6 MMOL/L 22-27 N CHXENM4V) POC BASE EXCESS VENOUS (test code -2.5 MMOL/L -4.0-4.0 N = POCBEV) POC O2 SATURATION VENOUS (test 55.6 % 60-80 L code = BLUF4WE) VENOUS BLOOD GAS DELIVERY (test Cannula code = DELV) VBG VENT MODE (test code = MODEV) PS VENOUS BLOOD GAS TEMP (test code 99.7 F = TEMPV) VENOUS BLOOD GAS SITE (test code swan = SITEV) [id number] 21:54:00 Test Item Value Reference Range Interpretation Comments MAGNESIUM (test code = MAG) 2.53 mg/dL 1.80-2.40 H BASIC METABOLIC [id number] 21:54:00 Test Item Value Reference Range Interpretation Comments SODIUM (test code = 143 mEq/L 134-147 N NA) POTASSIUM (test code 3.8 mEq/L 3.4-5.0 N = K) CHLORIDE (test code 110 mEq/L 100-108 H = CL) CARBON DIOXIDE (test 21 mEq/l 21-33 N code = CO2) ANION GAP (test code 16 0-20 N = GAP) GLUCOSE (test code = 152 mg/dL 70-110 H GLU) BLOOD UREA NITROGEN 14 mg/dL 7-18 N (test code = BUN) GLOMERULAR 66.6 70-80 L The Glomerular FILTRATION RATE Filtration R ate is a (test code = GFR) calculated parameterbased on serum Creatinine, pat ient age and sex. GFR va luesless than 60 mL/min/ 1.73 square meters a re indicative ofCh ronic Kidney Disease. Values less than 15 mL/min/1.73squa re meters indicate Kidney failure. The calculation forGFR is based on the CKD-EPI (2020) calculat ion. This formulais race indifferent and is the recommended for lida for GFRby the [facility] Kidney Found[facility] on for Adults.The GFR will not calculate if th e sex is unknown or if thepatient's ag e is <18 years. CREATININE (test 1.1 mg/dL 0.6-1.3 N code = CREAT) CALCIUM (test code = 8.4 mg/dL 8.0-10.5 N CA) POC ARTERIAL BLOOD [id number] 21:28:00 Test Item Value Reference Range Interpretation Comments POC ARTERIAL BLOOD GAS PH (test 7.358 7.35-7.45 N code = POCPHA) POC ARTERIAL BLOOD GAS PCO2 (test 37.9 mmHg 35.0-45 N code = [id number]) POC TCO2 ARTERIAL (test code = 22.4 POCTCO2) POC ARTERIAL BLOOD GAS PO2 (test 120.5 mmHg 80-100.0 H code = [id number]) POC HCO3 ARTERIAL (test code = 21.3 MMOL/L 22.0-26.0 L [id number]) POC BASE EXCESS (test code = -4.2 MMOL/L -4.0-4.0 L POCBEA) POC O2 SATURATION (test code = 98.5 % 90-100 N POCO2S) ABG DELIVERY (test code = MICHELLE) Cannula ABG TEMPERATURE (test code = 99.1 F TEMPA) ABG SITE (test code = SITEA) Art Line SALAS'S TEST (test code = ALLENS) N/A BASIC METABOLIC [id number] 21:28:00 Test Item Value Reference Range Interpretation Comments SODIUM (test code = NA/ABG) 143 mmol/L 134-147 N POTASSIUM (test code = K/ABG) 3.8 mmol/L 3.4-5.0 N CHLORIDE (test code = CL/ABG) 110 mmol/L 100-108 H CREATININE ABG (test code = 0.9 mg/dL 0.8-1.3 N CREAABG) POC IONIZED CALCIUM (test code = 1.11 MMOL/L 1.12-1.32 L POCCA) POC GLUCOSE (test code = POCGLU) 155 MG/DL 70-110 H HEMOGLOBIN [id number] 21:28:00 Test Item Value Reference Range Interpretation Comments HEMOGLOBIN ABG (test code = HGB/ABG) 9.4 G/DL 12.5-16.9 L [id number] 21:28:00 Test Item Value Reference Range Interpretation Comments HEMATOCRIT (test code = HCT/ABG) 28 % 37.5-50.7 L POC LACTIC [id number] 21:28:00 Test Item Value Reference Range Interpretation Comments POC LACTIC ACID (test code = 5.8 mmol/l 0.9-1.7 HH POCLAC) BASIC METABOLIC [id number] 20:18:00 Test Item Value Reference Range Interpretation Comments SODIUM (test code = NA/ABG) 145 mmol/L 134-147 N POTASSIUM (test code = K/ABG) 3.5 mmol/L 3.4-5.0 N CHLORIDE (test code = CL/ABG) 109 mmol/L 100-108 H CREATININE ABG (test code = 0.8 mg/dL 0.8-1.3 N CREAABG) POC IONIZED CALCIUM (test code = 1.14 MMOL/L 1.12-1.32 N POCCA) POC GLUCOSE (test code = POCGLU) 137 MG/DL 70-110 H HEMOGLOBIN [id number] 20:18:00 Test Item Value Reference Range Interpretation Comments HEMOGLOBIN ABG (test code = HGB/ABG) 9.3 G/DL 12.5-16.9 L [id number] 20:18:00 Test Item Value Reference Range Interpretation Comments HEMATOCRIT (test code = HCT/ABG) 27 % 37.5-50.7 L POC LACTIC [id number] 20:18:00 Test Item Value Reference Range Interpretation Comments POC LACTIC ACID (test code = 8.2 mmol/l 0.9-1.7 HH POCLAC) POC VENOUS BLOOD [id number] 20:18:00 Test Item Value Reference Range Interpretation Comments SALAS'S TEST (test code = ALLENS) N/A POC VENOUS BLOOD GAS PH (test 7.273 7.33-7.45 L code = POCPHV) POC VENOUS BLOOD GAS PCO2 (test 47.6 mmHg 43-47 H code = DSRSPG2V) POC VENOUS BLOOD GAS PO2 (test 29.9 mmHG 10-50 N code = SPQCH8E) POC TCO2 VENOUS (test code = 23.5 FUXEGL6Q) POC HCO3 VENOUS (test code = 22.0 MMOL/L 22-27 N DEDXKI2U) POC BASE EXCESS VENOUS (test code -4.8 MMOL/L -4.0-4.0 L = POCBEV) POC O2 SATURATION VENOUS (test 48.9 % 60-80 L code = EROD6AA) VENOUS BLOOD GAS DELIVERY (test 3 code = DELV) VENOUS BLOOD GAS TEMP (test code 98.4 F = TEMPV) VENOUS BLOOD GAS SITE (test code swan = SITEV) GLUCOSE [id number] 20:09:00 Test Item Value Reference Range Interpretation Comments GLUCOSE BEDSIDE (test 131 MG/DL 70-110 H Perfor med by certified code = GLUBED) 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 [facility] POC ARTERIAL BLOOD [id number] 18:27:00 Test Item Value Reference Range Interpretation Comments POC ARTERIAL BLOOD GAS PH (test 7.401 7.35-7.45 N code = POCPHA) POC ARTERIAL BLOOD GAS PCO2 31.0 mmHg 35.0-45 L (test code = NNSTJT7Z) POC TCO2 ARTERIAL (test code = 20.3 POCTCO2) POC ARTERIAL BLOOD GAS PO2 (test 185.7 mmHg 80-100.0 H code = QCTPC9P) POC HCO3 ARTERIAL (test code = 19.3 MMOL/L 22.0-26.0 L YULEXK2K) POC BASE EXCESS (test code = -5.6 MMOL/L -4.0-4.0 L POCBEA) POC O2 SATURATION (test code = 99.7 % 90-100 N POCO2S) FIO2 (test code = FIO2A) 40 % PaO2/FiO2 (test code = HLP4OOV0) 464.25 mm/Hg ABG DELIVERY (test code = MICHELLE) Adult Vent ABG VENT MODE (test code = CPAP/PS MODEA) ABG PEEP (test code = PEEPA) 5 cmH2O ABG PRESSURE SUPPORT (test code 10 cmH2O = PSABG) ABG TEMPERATURE (test code = 98 F TEMPA) ABG SITE (test code = SITEA) Art Line SALAS'S TEST (test code = N/A ALLENS) BASIC METABOLIC [id number] 18:27:00 Test Item Value Reference Range Interpretation Comments SODIUM (test code = NA/ABG) 144 mmol/L 134-147 N POTASSIUM (test code = K/ABG) 3.8 mmol/L 3.4-5.0 N CHLORIDE (test code = CL/ABG) 111 mmol/L 100-108 H CREATININE ABG (test code = 0.7 mg/dL 0.8-1.3 L CREAABG) POC IONIZED CALCIUM (test code = 1.01 MMOL/L 1.12-1.32 L POCCA) POC GLUCOSE (test code = POCGLU) 144 MG/DL 70-110 H HEMOGLOBIN [id number] 18:27:00 Test Item Value Reference Range Interpretation Comments HEMOGLOBIN ABG (test code = HGB/ABG) 9.8 G/DL 12.5-16.9 L [id number] 18:27:00 Test Item Value Reference Range Interpretation Comments HEMATOCRIT (test code = HCT/ABG) 29 % 37.5-50.7 L BASIC METABOLIC [id number] 17:31:00 Test Item Value Reference Range Interpretation Comments SODIUM (test code = 143 mEq/L 134-147 N NA) POTASSIUM (test code 3.7 mEq/L 3.4-5.0 N = K) CHLORIDE (test code 109 mEq/L 100-108 H = CL) CARBON DIOXIDE (test 21 mEq/l 21-33 N code = CO2) ANION GAP (test code 17 0-20 N = GAP) GLUCOSE (test code = 162 mg/dL 70-110 H GLU) BLOOD UREA NITROGEN 14 mg/dL 7-18 N (test code = BUN) GLOMERULAR 84.7 70-80 H The Glomerular FILTRATION RATE Filtration R ate is a (test code = GFR) calculated parameterbased on serum Creatinine, pat ient age and sex. GFR va luesless than 60 mL/min/ 1.73 square meters a re indicative ofCh ronic Kidney Disease. Values less than 15 mL/min/1.73squa re meters indicate Kidney failure. The calculation forGFR is based on the CKD-EPI (2020) calculat ion. This formulais race indifferent and is the recommended for lida for GFRby the Natio nal Kidney Foundati on for Adults.The GFR will not calculate if th e sex is unknown or if thepatient's ag e is <18 years. CREATININE (test 0.9 mg/dL 0.6-1.3 N code = CREAT) CALCIUM (test code = 7.8 mg/dL 8.0-10.5 L CA) COMMENTS: On arrivalComment: On [id number] 17:31:00 Test Item Value Reference Range Interpretation Comments MAGNESIUM (test code = MAG) 3.24 mg/dL 1.80-2.40 H COMMENTS: On arrivalComment: On arrivalPROTHROMBIN [id number] 17:13:00 Test Item Value Reference Range Interpretation Comments PROTHROMBIN TIME 15.7 SECONDS 9.3-12.9 H PATIENT (test code = PTP) INTERNATIONAL NORMAL 1.4 0.8-1.2 H TARGET INR BY RATIO (test code = INDICATIO N Indication INR) INR1. Prophylax is of venous thrombos is 2.0 - 3.0 (orthoped ic surgery), Proph ylaxis of venous throm bosis (other than hig h-risk surgery), Treat ment of Deep Vein Thrombosis/Pulm onary Embolism, Preve ntion of systemic emb olism - Tissue heart va lves, Acute Myocardia l Infarction (to prevent systemic emboli sm), Valvular heart disease, Atrial Fibrillation, Bileaflet mecha nical valve in aortic position.2. Mec hanical prosthetic valv es (high risk), 2. 5 - 3.5 Presence of Lup us Anticoagulant o r Antiphospholipi d Antibodies, Pre vention of systemic emb olism - Acute Myocardia l Infarction (to prevent recurrent infar ct). COMMENTS: On arrivalTHROMBOPLASTIN TIME [id number] 17:13:00 Test Item Value Reference Range Interpretation Comments THROMBOPLASTIN TIME 43.0 Seconds 25.0-39.5 H Therape utic Range: PARTIAL (test code = 50.4 - 88.3 Seconds PTT) Effective 03/03/2019 COMMENTS: On arrivalCBC W/AUTO [id number] 17:08:00 Test Item Value Reference Range Interpretation Comments WHITE BLOOD CELL (test code = 17.1 x10 3/uL 4.5-11.0 H WBC) RED BLOOD CELL (test code = 3.39 x10 6/uL 4.00-5.60 L RBC) HEMOGLOBIN (test code = HGB) 10.6 g/dL 12.5-16.9 L HEMATOCRIT (test code = HCT) 30.9 % 37.5-50.7 L MEAN CELL VOLUME (test code = 91.2 fL 81.0-99.0 N MCV) MEAN CELL HGB (test code = 31.3 pg 27.0-33.0 N MCH) MEAN CELL HGB CONCETRATION 34.3 g/dL 33.0-37.0 N (test code = MCHC) RED CELL DISTRIBUTION WIDTH CV 12.8 % 11.5-14.5 N (test code = RDW) RED CELL DISTRIBUTION WIDTH SD 41.8 fL 37.0-54.0 N (test code = RDW-SD) PLATELET COUNT (test code = 104 x10 3/uL 150-400 L PLT) MEAN PLATELET VOLUME (test 10.5 fL 7.0-9.0 H code = MPV) NEUTROPHIL % (test code = NT%) 78.2 % 56.0-77.0 H IMMATURE GRANULOCYTE % (test 0.7 % 0.0-2.0 N code = IG%) LYMPHOCYTE % (test code = LY%) 16.1 % 14.0-32.0 N MONOCYTE % (test code = MO%) 3.9 % 4.8-9.0 L EOSINOPHIL % (test code = EO%) 0.8 % 0.3-3.7 N BASOPHIL % (test code = BA%) 0.3 % 0.0-2.0 N NUCLEATED RBC % (test code = 0.0 % 0-0 N NRBC%) NEUTROPHIL # (test code = NT#) 13.40 x10 3/uL 2.0-7.6 H IMMATURE GRANULOCYTE # (test 0.12 x10 3/uL 0.00-0.03 H code = IG#) LYMPHOCYTE # (test code = LY#) 2.76 x10 3/uL 1.0-3.8 N MONOCYTE # (test code = MO#) 0.67 x10 3/uL 0.1-0.8 N EOSINOPHIL # (test code = EO#) 0.13 x10 3/uL 0.0-0.2 N BASOPHIL # (test code = BA#) 0.05 x10 3/uL 0.0-0.2 N NUCLEATED RBC # (test code = 0.00 x10 3/uL 0.0-0.1 N NRBC#) MANUAL DIFF REQUIRED (test NO code = MDIFF) COMMENTS[facility] [id number] 17:00:00 Test Item Value Reference Range Interpretation Comments POC ARTERIAL BLOOD GAS PH (test 7.357 7.35-7.45 N code = POCPHA) POC ARTERIAL BLOOD GAS PCO2 37.8 mmHg 35.0-45 N (test code = YSCVQF4B) POC TCO2 ARTERIAL (test code = 22.5 POCTCO2) POC ARTERIAL BLOOD GAS PO2 (test 233.9 mmHg 80-100.0 HH code = SGUWF7D) POC HCO3 ARTERIAL (test code = 21.3 MMOL/L 22.0-26.0 L [id number]) POC BASE EXCESS (test code = -4.3 MMOL/L -4.0-4.0 L POCBEA) POC O2 SATURATION (test code = 99.8 % 90-100 N POCO2S) FIO2 (test code = FIO2A) 50 % PaO2/FiO2 (test code = HIS0CVX7) 467.80 mm/Hg ABG DELIVERY (test code = MICHELLE) Adult Vent ABG VENT MODE (test code = AC MODEA) ABG VENT RESP RATE (test code = 20 /MIN RRA) ABG TIDAL VOLUME (test code = 500 ml TVA) ABG PEEP (test code = PEEPA) 5 cmH2O ABG TEMPERATURE (test code = 98 F TEMPA) ABG SITE (test code = SITEA) Art Line SALAS'S TEST (test code = N/A ALLENS) BASIC METABOLIC [id number] 17:00:00 Test Item Value Reference Range Interpretation Comments SODIUM (test code = NA/ABG) 141 mmol/L 134-147 N POTASSIUM (test code = K/ABG) 3.6 mmol/L 3.4-5.0 N CHLORIDE (test code = CL/ABG) 109 mmol/L 100-108 H CREATININE ABG (test code = 0.7 mg/dL 0.8-1.3 L CREAABG) POC IONIZED CALCIUM (test code = 1.15 MMOL/L 1.12-1.32 N POCCA) POC GLUCOSE (test code = POCGLU) 165 MG/DL 70-110 H HEMOGLOBIN [id number] 17:00:00 Test Item Value Reference Range Interpretation Comments HEMOGLOBIN ABG (test code = HGB/ABG) 9.8 G/DL 12.5-16.9 L [id number] 17:00:00 Test Item Value Reference Range Interpretation Comments HEMATOCRIT (test code = HCT/ABG) 29 % 37.5-50.7 L [id number] 16:29:00 Test Item Value Reference Range Interpretation Comments ACT-ISTAT (test code 155 SEC 74-137 H Perform ed by certified = ACTI) 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 [facility] POC ARTERIAL BLOOD [id number] 16:21:00 Test Item Value Reference Range Interpretation Comments POC ARTERIAL BLOOD GAS PH (test 7.355 7.35-7.45 N code = POCPHA) POC ARTERIAL BLOOD GAS PCO2 (test 38.7 mmHg 35.0-45 N code = UYCCKP5Q) POC TCO2 ARTERIAL (test code = 22.8 POCTCO2) POC ARTERIAL BLOOD GAS PO2 (test 573.9 mmHg 80-100.0 HH code = RXNME6L) POC HCO3 ARTERIAL (test code = 21.6 MMOL/L 22.0-26.0 L HMOOTO4D) POC BASE EXCESS (test code = -3.6 MMOL/L -4.0-4.0 N POCBEA) POC O2 SATURATION (test code = 100.0 % 90-100 N POCO2S) BASIC METABOLIC [id number] 16:21:00 Test Item Value Reference Range Interpretation Comments SODIUM (test code = NA/ABG) 142 mmol/L 134-147 N POTASSIUM (test code = K/ABG) 3.9 mmol/L 3.4-5.0 N CHLORIDE (test code = CL/ABG) 109 mmol/L 100-108 H CREATININE ABG (test code = 0.7 mg/dL 0.8-1.3 L CREAABG) POC IONIZED CALCIUM (test code = 1.14 MMOL/L 1.12-1.32 N POCCA) POC GLUCOSE (test code = POCGLU) 146 MG/DL 70-110 H HEMOGLOBIN [id number] 16:21:00 Test Item Value Reference Range Interpretation Comments HEMOGLOBIN ABG (test code = HGB/ABG) 9.6 G/DL 12.5-16.9 L [id number] 16:21:00 Test Item Value Reference Range Interpretation Comments HEMATOCRIT (test code = HCT/ABG) 28 % 37.5-50.7 L POC LACTIC [id number] 16:21:00 Test Item Value Reference Range Interpretation Comments POC LACTIC ACID (test code = 3.4 mmol/l 0.9-1.7 H POCLAC) [id number] 15:33:00 Test Item Value Reference Range Interpretation Comments ACT-ISTAT (test code 606 SEC 74-137 H Perform ed by certified = ACTI) 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 [facility] POC ARTERIAL BLOOD [id number] 15:24:00 Test Item Value Reference Range Interpretation Comments POC ARTERIAL BLOOD GAS PH (test 7.397 7.35-7.45 N code = POCPHA) POC ARTERIAL BLOOD GAS PCO2 (test 39.7 mmHg 35.0-45 N code = XRMNLN0Q) POC TCO2 ARTERIAL (test code = 25.6 POCTCO2) POC ARTERIAL BLOOD GAS PO2 (test 381.5 mmHg 80-100.0 HH code = IZXYO3T) POC HCO3 ARTERIAL (test code = 24.4 MMOL/L 22.0-26.0 N LYEAQM1C) POC BASE EXCESS (test code = -0.4 MMOL/L -4.0-4.0 N POCBEA) POC O2 SATURATION (test code = 100.0 % 90-100 N POCO2S) BASIC METABOLIC [id number] 15:24:00 Test Item Value Reference Range Interpretation Comments SODIUM (test code = NA/ABG) 137 mmol/L 134-147 N POTASSIUM (test code = K/ABG) 5.2 mmol/L 3.4-5.0 H CHLORIDE (test code = CL/ABG) 105 mmol/L 100-108 N CREATININE ABG (test code = 0.6 mg/dL 0.8-1.3 L CREAABG) POC IONIZED CALCIUM (test code = 1.00 MMOL/L 1.12-1.32 L POCCA) POC GLUCOSE (test code = POCGLU) 180 MG/DL 70-110 H HEMOGLOBIN [id number] 15:24:00 Test Item Value Reference Range Interpretation Comments HEMOGLOBIN ABG (test code = HGB/ABG) 9.3 G/DL 12.5-16.9 L [id number] 15:24:00 Test Item Value Reference Range Interpretation Comments HEMATOCRIT (test code = HCT/ABG) 27 % 37.5-50.7 L POC LACTIC [id number] 15:24:00 Test Item Value Reference Range Interpretation Comments POC LACTIC ACID (test code = 1.7 mmol/l 0.9-1.7 N POCLAC) [id number] 14:57:00 Test Item Value Reference Range Interpretation Comments ACT-ISTAT (test code 648 SEC 74-137 H Perform ed by certified = ACTI) 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 [facility] POC ARTERIAL BLOOD [id number] 14:39:00 Test Item Value Reference Range Interpretation Comments POC ARTERIAL BLOOD GAS PH (test 7.422 7.35-7.45 N code = POCPHA) POC ARTERIAL BLOOD GAS PCO2 (test 39.6 mmHg 35.0-45 N code = TDUHLC8J) POC TCO2 ARTERIAL (test code = 27.0 POCTCO2) POC ARTERIAL BLOOD GAS PO2 (test 431.8 mmHg 80-100.0 HH code = YSQDP9J) POC HCO3 ARTERIAL (test code = 25.8 MMOL/L 22.0-26.0 N DKPLSA6D) POC BASE EXCESS (test code = 1.3 MMOL/L -4.0-4.0 N POCBEA) POC O2 SATURATION (test code = 100.0 % 90-100 N POCO2S) BASIC METABOLIC [id number] 14:39:00 Test Item Value Reference Range Interpretation Comments SODIUM (test code = NA/ABG) 137 mmol/L 134-147 N POTASSIUM (test code = K/ABG) 5.3 mmol/L 3.4-5.0 H CHLORIDE (test code = CL/ABG) 105 mmol/L 100-108 N CREATININE ABG (test code = 0.7 mg/dL 0.8-1.3 L CREAABG) POC IONIZED CALCIUM (test code = 1.03 MMOL/L 1.12-1.32 L POCCA) POC GLUCOSE (test code = POCGLU) 183 MG/DL 70-110 H HEMOGLOBIN [id number] 14:39:00 Test Item Value Reference Range Interpretation Comments HEMOGLOBIN ABG (test code = HGB/ABG) 9.7 G/DL 12.5-16.9 L [id number] 14:39:00 Test Item Value Reference Range Interpretation Comments HEMATOCRIT (test code = HCT/ABG) 29 % 37.5-50.7 L POC LACTIC [id number] 14:39:00 Test Item Value Reference Range Interpretation Comments POC LACTIC ACID (test code = 1.4 mmol/l 0.9-1.7 N POCLAC) [id number] 14:28:00 Test Item Value Reference Range Interpretation Comments ACT-ISTAT (test code 456 SEC 74-137 H Perform ed by certified = ACTI) 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 [facility] POC ARTERIAL BLOOD [id number] 14:14:00 Test Item Value Reference Range Interpretation Comments POC ARTERIAL BLOOD GAS PH (test 7.553 7.35-7.45 HH code = POCPHA) POC ARTERIAL BLOOD GAS PCO2 (test 31.2 mmHg 35.0-45 L code = WRZOWP3B) POC TCO2 ARTERIAL (test code = 28.4 POCTCO2) POC ARTERIAL BLOOD GAS PO2 (test 432.7 mmHg 80-100.0 HH code = KVYCV6A) POC HCO3 ARTERIAL (test code = 27.5 MMOL/L 22.0-26.0 H HWRUDQ6F) POC BASE EXCESS (test code = 5.1 MMOL/L -4.0-4.0 H POCBEA) POC O2 SATURATION (test code = 100.0 % 90-100 N POCO2S) BASIC METABOLIC [id number] 14:14:00 Test Item Value Reference Range Interpretation Comments SODIUM (test code = NA/ABG) 139 mmol/L 134-147 N POTASSIUM (test code = K/ABG) 5.8 mmol/L 3.4-5.0 H CHLORIDE (test code = CL/ABG) 106 mmol/L 100-108 N CREATININE ABG (test code = 0.7 mg/dL 0.8-1.3 L CREAABG) POC IONIZED CALCIUM (test code = 0.99 MMOL/L 1.12-1.32 L POCCA) POC GLUCOSE (test code = POCGLU) 170 MG/DL 70-110 H HEMOGLOBIN [id number] 14:14:00 Test Item Value Reference Range Interpretation Comments HEMOGLOBIN ABG (test code = HGB/ABG) 9.3 G/DL 12.5-16.9 L [id number] 14:14:00 Test Item Value Reference Range Interpretation Comments HEMATOCRIT (test code = HCT/ABG) 27 % 37.5-50.7 L POC LACTIC [id number] 14:14:00 Test Item Value Reference Range Interpretation Comments POC LACTIC ACID (test code = 1.3 mmol/l 0.9-1.7 N POCLAC) [id number] 13:48:00 Test Item Value Reference Range Interpretation Comments ACT-ISTAT (test code 841 SEC 74-137 H Perform ed by certified = ACTI) 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 [facility] POC ARTERIAL BLOOD [id number] 13:37:00 Test Item Value Reference Range Interpretation Comments POC ARTERIAL BLOOD GAS PH (test 7.412 7.35-7.45 N code = POCPHA) POC ARTERIAL BLOOD GAS PCO2 (test 35.5 mmHg 35.0-45 N code = GDVOUM2Y) POC TCO2 ARTERIAL (test code = 23.7 POCTCO2) POC ARTERIAL BLOOD GAS PO2 (test 610.1 mmHg 80-100.0 HH code = FWYCR1K) POC HCO3 ARTERIAL (test code = 22.6 MMOL/L 22.0-26.0 N TFHNYN9S) POC BASE EXCESS (test code = -1.6 MMOL/L -4.0-4.0 N POCBEA) POC O2 SATURATION (test code = 100.0 % 90-100 N POCO2S) BASIC METABOLIC [id number] 13:37:00 Test Item Value Reference Range Interpretation Comments SODIUM (test code = NA/ABG) 140 mmol/L 134-147 N POTASSIUM (test code = K/ABG) 3.5 mmol/L 3.4-5.0 N CHLORIDE (test code = CL/ABG) 107 mmol/L 100-108 N CREATININE ABG (test code = 0.6 mg/dL 0.8-1.3 L CREAABG) POC IONIZED CALCIUM (test code = 1.13 MMOL/L 1.12-1.32 N POCCA) POC GLUCOSE (test code = POCGLU) 152 MG/DL 70-110 H HEMOGLOBIN [id number] 13:37:00 Test Item Value Reference Range Interpretation Comments HEMOGLOBIN ABG (test code = 12.0 G/DL 12.5-16.9 L HGB/ABG) [id number] 13:37:00 Test Item Value Reference Range Interpretation Comments HEMATOCRIT (test code = HCT/ABG) 35 % 37.5-50.7 L POC LACTIC [id number] 13:37:00 Test Item Value Reference Range Interpretation Comments POC LACTIC ACID (test code = 0.9 mmol/l 0.9-1.7 N POCLAC) [id number] 12:46:00 Test Item Value Reference Range Interpretation Comments ACT-ISTAT (test code 149 SEC 74-137 H Perform ed by certified = ACTI) 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 [facility] POC ARTERIAL BLOOD [id number] 12:42:00 Test Item Value Reference Range Interpretation Comments POC ARTERIAL BLOOD GAS PH (test 7.438 7.35-7.45 N code = POCPHA) POC ARTERIAL BLOOD GAS PCO2 (test 38.1 mmHg 35.0-45 N code = TECECR7L) POC TCO2 ARTERIAL (test code = 26.9 POCTCO2) POC ARTERIAL BLOOD GAS PO2 (test 81.6 mmHg 80-100.0 N code = RCGFD1T) POC HCO3 ARTERIAL (test code = 25.7 MMOL/L 22.0-26.0 N VHOQUO3K) POC BASE EXCESS (test code = 1.6 MMOL/L -4.0-4.0 N POCBEA) POC O2 SATURATION (test code = 96.4 % 90-100 N POCO2S) BASIC METABOLIC [id number] 12:42:00 Test Item Value Reference Range Interpretation Comments SODIUM (test code = NA/ABG) 139 mmol/L 134-147 N POTASSIUM (test code = K/ABG) 3.7 mmol/L 3.4-5.0 N CHLORIDE (test code = CL/ABG) 103 mmol/L 100-108 N CREATININE ABG (test code = 0.8 mg/dL 0.8-1.3 N CREAABG) POC IONIZED CALCIUM (test code = 1.23 MMOL/L 1.12-1.32 N POCCA) POC GLUCOSE (test code = POCGLU) 152 MG/DL 70-110 H HEMOGLOBIN [id number] 12:42:00 Test Item Value Reference Range Interpretation Comments HEMOGLOBIN ABG (test code = 13.5 G/DL 12.5-16.9 N HGB/ABG) [id number] 12:42:00 Test Item Value Reference Range Interpretation Comments HEMATOCRIT (test code = HCT/ABG) 40 % 37.5-50.7 N POC LACTIC [id number] 12:42:00 Test Item Value Reference Range Interpretation Comments POC LACTIC ACID (test code = 1.5 mmol/l 0.9-1.7 N POCLAC) GLUCOSE [id number] 10:40:00 Test Item Value Reference Range Interpretation Comments GLUCOSE BEDSIDE (test 159 MG/DL 70-110 H Perfor med by certified code = GLUBED) 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 [facility] - XR CHEST 1 [id number] 00:00:00 [facility] : 1940 Sex: M FAX: Mitesh Hopkins MD [phone] Cecilia: St: [facility] FAX: Abiodun Leavitt [phone] FAX: Kerri Laguerre [facility] [phone] Name: ODIN ZENG [facility] : 1940 Age/S: 83/M [address] [place] [address] Unit #: [id number] Loc: G.2202 [place] [address] Phys: Kerri Cassidy Physic Acct: [id number] Dis Date: Status: ADM IN PHONE #: [phone] Exam Date: 06/03/20231708 FAX #: [phone] Reason: CardiacSurgery Post Op EXAMS: CPT CODE: [id number] XR CHEST 1 V [id number] PROCEDURE INFORMATION: Exam: XR Chest Exam date and time: 06/03/2023 4:59 PM Age: 83 years old Clinical indication: Screening exam; Other screening; Additional info: Cardiac surgery post op TECHNIQUE: Imaging protocol: Radiologic exam of the chest. Views: 1 view. COMPARISON: DX XR CHEST 2 V 05/31/2023 3:54 PM FINDINGS: Lungs: Normal lung vol umes. No consolidation. Minimal vascular congestion. An endotracheal tube tip is 5 cm cephalad of the demetria. A right IJ Austin-Portia catheter tip overlies the cardiac silhouette. A mediastinal tube is present. Pleural spaces: Unremarkable. No pleural effusion. No pneumothorax. Heart/Mediastinum: Heart size is within normal limits. Status post midline sternotomy, cardiac valve replacement, loop recorderand left atrial appendage occlusion device placement. Bones/joints: Unremarkable. IMPRESSION: Postoperative change with minimal vascular congestion. at 1820 Reported and signed by: Elgin Henderson M.D. CC: Mitesh Muhammad MD; Abiodun Sanchez MD; Kerri Cassidy Technologist: RT Apple(Lobito) Trnscrd Date/Time/By: 06/03/2023 (1819) : By: DouglasTDO Orig Print D/T: S: 06/03/2023 (1819) PAGE 1 Signed Report- XR CHEST 2 [id number] 00:00:00 [facility] 1940 Sex: M FAX: Mitesh Hopkins MD [phone] Cecilia: St: PRE FAX: Abiodun Leavitt [phone] Name: ODIN ZENG [facility] : 1940 Age/S: 83/M [address] [place] [address] Unit #: [id number] Loc: [place] [address] Phys: Abiodun Sanchez MD Acct: [id number] Dis Date: Status: PRE IN PHONE #: [phone] Exgianfranco m Date: 05/31/2023 1555 FAX #: [phone] Reason: PREOP EXAMS: CPT CODE: [id number] XR CHEST 2 V [id number] PROCEDURE INFORMATION: Exam: XR Chest Exam date and time: 05/31/2023 3:54 PM Age: 83 years old Clinical indication: Pre-operative exam; Cardiovascular screening and respiratory screening exam; Additional info: Preop TECHNIQUE: Imaging protocol: Radiologic exam of the chest. Views: 2 views. PA and Lateral COMPARISON: No relevant prior studies available. FINDINGS: Lungs: No confuent reticular opacities. No consolidation. Small calcified granuloma seen in the left lung. Pleural spaces: No pleural effusion. No pneumothorax. Heart/Mediastinum: Within normal limits. Implantable loop recorder is seen l ateral to the left heart border. Bones/joints: Unremarkable as visualized. IMPRESSION: No acute process. at 0727 Reported and signed by: Lynda Marlow D.O. CC: Mitesh Muhammad MD; Abiodun Sanchez MD Technologist: RT Tracie(R) Trnscrd Date/Time/By: 06/01/2023 (726) : By: DouglasGGG Orig Print D/T: S: 06/01/2023 (0747)PAGE 1 Signed ReportCOVID 19 Asymptomatic IH [id number] 18:14:00 Test Item Value Reference Range Interpretation Comments COVID 19 Asymptomatic Negative Negative A nega tive result is IH AG (test code = presumpti ve and should COVNONPUIAG) be confirmedwit h an FDA authorized mole cular assay, if neces vanessa forpatient cady gement.A positive result does not rule out co-inf ections withother patho gens.This test detects laith th viable (live) and non-viable,SARS -CoV, and SARS-CoV-2. Lucho t performance dep ends on theamount of vi torsten (antigen) in th e sample.This lucho t has not been FDA cleare d or approved; the t est hasbeen authori zed by FDA under an Em ergency Use Authorizati on(EUA) for use by labo ratories certified under the CLIA thatmeet the requirements to perform moderate, high or waivedcomplexit y tests. B-TYPE NATRIURETIC [id number] 18:03:00 Test Item Value Reference Range Interpretation Comments B-TYPE NATRIURETIC PEPTIDE (test 85.0 PG/ML 0-100 N code = BNP) [id number] 17:42:00 Test Item Value Reference Range Interpretation Comments HGBA1C% (test code = HGBA1C%) 7.4 %A1C 4.8-6.0 H COMPREHENSIVE METABOLIC [id number] 16:12:00 Test Item Value Reference Range Interpretation Comments SODIUM (test code = 138 mEq/L 134-147 N NA) POTASSIUM (test code 4.0 mEq/L 3.4-5.0 N = K) CHLORIDE (test code 104 mEq/L 100-108 N = CL) CARBON DIOXIDE (test 30 mEq/l 21-33 N code = CO2) ANION GAP (test code 8 0-20 N = GAP) GLUCOSE (test code = 155 mg/dL 70-110 H GLU) BLOOD UREA NITROGEN 16 mg/dL 7-18 N (test code = BUN) GLOMERULAR 60.0 70-80 L The Glomerular FILTRATION RATE Filtration R ate is a (test code = GFR) calculated parameterbased on serum Creatinine, pat ient age and sex. GFR va luesless than 60 mL/min/ 1.73 square meters a re indicative ofCh ronic Kidney Disease. Values less than 15 mL/min/1.73squa re meters indicate Kidney failure. The calculation for GFR is based on the CK D-EPI (2020) calculat ion. This formulais race indifferent and is the recommended for lida for GFRby the Natio nal Kidney Foundati on for Adults.The GFR will not calculate if th e sex is unknown or if thepatient's ag e is <18 years. CREATININE (test 1.2 mg/dL 0.6-1.3 N code = CREAT) TOTAL PROTEIN (test 7.6 g/dL 6.4-8.2 N code = PROT) ALBUMIN (test code = 4.30 g/dL 3.4-5.0 N ALB) CALCIUM (test code = 9.5 mg/dL 8.0-10.5 N CA) BILIRUBIN TOTAL 0.60 mg/dL 0.0-1.0 N (test code = BILT) SGOT/AST (test code 21 IUnit/L 15-37 N = AST) SGPT/ALT (test code 15 IUnit/L 30-65 L = ALT) ALKALINE PHOSPHATASE 45 IUnit/L 20-125 N TOTAL (test code = ALKP) UA RFLX MICR CULT IF [id number] 16:04:00 Test Item Value Reference Range Interpretation Comments UA COLOR (test code = COLU) YELLOW YEL/STRAW UA APPEARANCE (test code = CLEAR CLEAR APPU) UA GLUCOSE DIPSTICK (test code 2+ NEGATIVE A = DGLUU) UA BILIRUBIN DIPSTICK (test NEGATIVE NEGATIVE code = BILU) UA KETONE DIPSTICK (test code NEGATIVE NEGATIVE = KETU) UA SPECIFIC GRAVITY (test code 1.016 1.005-1.030 N = SGU) UA BLOOD DIPSTICK (test code = NEGATIVE NEGATIVE MARISOL) UA PH DIPSTICK (test code = 5.0 5.0-7.0 N BORIS) UA PROTEIN DIPSTICK (test code NEGATIVE NEGATIVE = PROU) UA UROBILINIOGEN DIPSTICK 0.2 mg/dL 0.2-1.0 (test code = URO) UA NITRITE DIPSTICK (test code NEGATIVE NEGATIVE = MINE) UA LEUKOCYTE ESTERASE DIPSTICK NEGATIVE NEGATIVE (test code = LEUU) UA WBC (test code = WBCU) 0-3 WBC/HPF 0-3 UA RBC (test code = RBCU) 0-3 RBC/HPF 0-3 UA WBC NO REFLEX (test code = 0-3 WBC/HPF 0-3 WBCUCL) UA BACTERIA (test code = BACU) NONE SEEN /HPF NONE SEEN UA SQUAMOUS CELLS (test code = NONE SEEN /HPF NONE SEEN SQU) UA HYALINE CAST (test code = 0-2 /LPF NONE SEEN HYALU) UA MUCUS (test code = MUCU) TRACE /LPF NONE SEEN Indication for culture: RiskForSepsis-no oth srcSpecimen Description: CLEAN CATCHPROTHROMBIN [id number] 15:57:00 Test Item Value Reference Range Interpretation Comments PROTHROMBIN TIME 11.7 SECONDS 9.3-12.9 N PATIENT (test code = PTP) INTERNATIONAL NORMAL 1.1 0.8-1.2 N TARGE T INR BY RATIO (test code = INDICATIO N Indication INR) INR1. Prophylax is of venous thrombos is 2.0 - 3.0 (orthoped ic surgery), Proph ylaxis of venous throm bosis (other than hig h-risk surgery), Treat ment of Deep Vein Thrombosis/Pulm onary Embolism, Preve ntion of systemic emb olism - Tissue heart va lves, Acute Myocardia l Infarction (to prevent systemic emboli sm), Valvular heart disease, Atrial Fibrillation, Bileaflet mecha nical valve in aortic position.2. Mec hanical prosthetic valv es (high risk), 2. 5 - 3.5 Presence of Lup us Anticoagulant o r Antiphospholipi d Antibodies, Pre vention of systemic emb olism - Acute Myocardia l Infarction (to prevent recurrent infar ct). THROMBOPLASTIN TIME [id number] 15:57:00 Test Item Value Reference Range Interpretation Comments THROMBOPLASTIN TIME 30.3 Seconds 25.0-39.5 N Therape utic Range: PARTIAL (test code = 50.4 - 88.3 Seconds PTT) Effective 03/03/2019 CBC W/AUTO [id number] 15:49:00 Test Item Value Reference Range Interpretation Comments WHITE BLOOD CELL (test code = 7.8 x10 3/uL 4.5-11.0 N WBC) RED BLOOD CELL (test code = 4.73 x10 6/uL 4.00-5.60 N RBC) HEMOGLOBIN (test code = HGB) 14.5 g/dL 12.5-16.9 N HEMATOCRIT (test code = HCT) 43.7 % 37.5-50.7 N MEAN CELL VOLUME (test code = 92.4 fL 81.0-99.0 N MCV) MEAN CELL HGB (test code = MCH) 30.7 pg 27.0-33.0 N MEAN CELL HGB CONCETRATION 33.2 g/dL 33.0-37.0 N (test code = MCHC) RED CELL DISTRIBUTION WIDTH CV 12.8 % 11.5-14.5 N (test code = RDW) RED CELL DISTRIBUTION WIDTH SD 43.7 fL 37.0-54.0 N (test code = RDW-SD) PLATELET COUNT (test code = 249 x10 3/uL 150-400 N PLT) MEAN PLATELET VOLUME (test code 11.4 fL 7.0-9.0 H = MPV) NEUTROPHIL % (test code = NT%) 58.7 % 56.0-77.0 N IMMATURE GRANULOCYTE % (test 0.5 % 0.0-2.0 N code = IG%) LYMPHOCYTE % (test code = LY%) 28.9 % 14.0-32.0 N MONOCYTE % (test code = MO%) 8.6 % 4.8-9.0 N EOSINOPHIL % (test code = EO%) 2.7 % 0.3-3.7 N BASOPHIL % (test code = BA%) 0.6 % 0.0-2.0 N NUCLEATED RBC % (test code = 0.0 % 0-0 N NRBC%) NEUTROPHIL # (test code = NT#) 4.58 x10 3/uL 2.0-7.6 N IMMATURE GRANULOCYTE # (test 0.04 x10 3/uL 0.00-0.03 H code = IG#) LYMPHOCYTE # (test code = LY#) 2.26 x10 3/uL 1.0-3.8 N MONOCYTE # (test code = MO#) 0.67 x10 3/uL 0.1-0.8 N EOSINOPHIL # (test code = EO#) 0.21 x10 3/uL 0.0-0.2 H BASOPHIL # (test code = BA#) 0.05 x10 3/uL 0.0-0.2 N NUCLEATED RBC # (test code = 0.00 x10 3/uL 0.0-0.1 N NRBC#) MANUAL DIFF REQUIRED (test code NO = MDIFF) GLUCOSE [id number] 07:52:00 Test Item Value Reference Range Interpretation Comments GLUCOSE BEDSIDE (test 180 MG/DL 70-110 H Perfor med by certified code = GLUBED) 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 [facility] BASIC METABOLIC [id number] 13:15:00 Test Item Value Reference Range Interpretation Comments SODIUM (test code = 140 mEq/L 134-147 N NA) POTASSIUM (test code 4.0 mEq/L 3.4-5.0 N = K) CHLORIDE (test code 104 mEq/L 100-108 N = CL) CARBON DIOXIDE (test 28 mEq/l 21-33 N code = CO2) ANION GAP (test code 12 0-20 N = GAP) GLUCOSE (test code = 133 mg/dL 70-110 H GLU) BLOOD UREA NITROGEN 17 mg/dL 7-18 N (test code = BUN) GLOMERULAR 66.6 70-80 L The Glomerular FILTRATION RATE Filtration R ate is a (test code = GFR) calculated parameterbased on serum Creatinine, pat ient age and sex. GFR va luesless than 60 mL/min/ 1.73 square meters a re indicative ofCh ronic Kidney Disease. Values less than 15 mL/min/1.73squa re meters indicate Kidney failure. The calculation forGFR is based on the CKD-EPI (2020) calculat ion. This formulais race indifferent and is the recommended for lida for GFRby the Natio nal Kidney Foundati on for Adults.The GFR will not calculate if th e sex is unknown or if thepatient's ag e is <18 years. CREATININE (test 1.1 mg/dL 0.6-1.3 N code = CREAT) CALCIUM (test code = 9.5 mg/dL 8.0-10.5 N CA) PROTHROMBIN [id number] 13:05:00 Test Item Value Reference Range Interpretation Comments PROTHROMBIN TIME 12.7 SECONDS 9.3-12.9 N PATIENT (test code = PTP) INTERNATIONAL NORMAL 1.1 0.8-1.2 N TARGE T INR BY RATIO (test code = INDICATIO N Indication INR) INR1. Prophylax is of venous thrombos is 2.0 - 3.0 (orthoped ic surgery), Proph ylaxis of venous throm bosis (other than hig h-risk surgery), Treat ment of Deep Vein Thrombosis/Pulm onary Embolism, Preve ntion of systemic emb olism - Tissue heart va lves, Acute Myocardia l Infarction (to prevent systemic emboli sm), Valvular heart disease, Atrial Fibrillation, Bileaflet mecha nical valve in aortic position.2. Mec hanical prosthetic valv es (high risk), 2. 5 - 3.5 Presence of Lup us Anticoagulant o r Antiphospholipi d Antibodies, Pre vention of systemic emb olism - Acute Myocardia l Infarction (to prevent recurrent infar ct). CBC W/AUTO [id number] 13:03:00 Test Item Value Reference Range Interpretation Comments WHITE BLOOD CELL (test code = 7.4 x10 3/uL 4.5-11.0 N WBC) RED BLOOD CELL (test code = 4.29 x10 6/uL 4.00-5.60 N RBC) HEMOGLOBIN (test code = HGB) 13.5 g/dL 12.5-16.9 N HEMATOCRIT (test code = HCT) 38.9 % 37.5-50.7 N MEAN CELL VOLUME (test code = 90.7 fL 81.0-99.0 N MCV) MEAN CELL HGB (test code = MCH) 31.5 pg 27.0-33.0 N MEAN CELL HGB CONCETRATION 34.7 g/dL 33.0-37.0 N (test code = MCHC) RED CELL DISTRIBUTION WIDTH CV 12.9 % 11.5-14.5 N (test code = RDW) PLATELET COUNT (test code = 193 x10 3/uL 150-400 N PLT) NEUTROPHIL % (test code = NT%) 60.6 % 56.0-77.0 N LYMPHOCYTE % (test code = LY%) 28.3 % 14.0-32.0 N NEUTROPHIL # (test code = NT#) 4.49 x10 3/uL 2.0-7.6 N LYMPHOCYTE # (test code = LY#) 2.10 x10 3/uL 1.0-3.8 N MANUAL DIFF REQUIRED (test code NO = MDIFF) RED CELL DISTRIBUTION WIDTH SD 42.4 fL 37.0-54.0 N (test code = RDW-SD) MEAN PLATELET VOLUME (test code 10.9 fL 7.0-9.0 H = MPV) IMMATURE GRANULOCYTE % (test 0.4 % 0.0-2.0 N code = IG%) MONOCYTE % (test code = MO%) 8.6 % 4.8-9.0 N EOSINOPHIL % (test code = EO%) 1.6 % 0.3-3.7 N BASOPHIL % (test code = BA%) 0.5 % 0.0-2.0 N NUCLEATED RBC % (test code = 0.0 % 0-0 N NRBC%) IMMATURE GRANULOCYTE # (test 0.03 x10 3/uL 0.00-0.03 N code = IG#) MONOCYTE # (test code = MO#) 0.64 x10 3/uL 0.1-0.8 N EOSINOPHIL # (test code = EO#) 0.12 x10 3/uL 0.0-0.2 N BASOPHIL # (test code = BA#) 0.04 x10 3/uL 0.0-0.2 N NUCLEATED RBC # (test code = 0.00 x10 3/uL 0.0-0.1 N NRBC#) BASIC METABOLIC PANEL (NA, K, CL, CO2, GLUCOSE, BUN, CREATININE, CA)2022-09-18 17:13:47 Test Item Value Reference Range Interpretation Comments NA (test code = 139 mmol/L 135-145 1247577126) K (test code = 4.6 mmol/L 3.5-5.0 3346871055) CL (test code = 101 mmol/L 98-108 8456813158) CO2 TOTAL (test code = 29 mmol/L 23-31 6847325635) AGAP (test code = 2-16 1792010783) BUN (test code = 22 mg/dL 7-23 4824203486) GLUCOSE (test code = 149 mg/dL 70-110 H 3555655937) CREATININE (test code = 0.97 mg/dL 0.60-1.25 9733915686) CALCIUM (test code = 9.3 mg/dL 8.6-10.6 1007253315) eGFR (test code = mL/min/1.73m2 5253386628) ANGELA (test code = ANGELA) Association of Glomerular Filtration Rate (GFR) and Staging of Kidney Disease* + --+ --+ ------+| GFR (mL/min/1.73 m2) ?| With Kidney Damage ?| ?Without Kidney Damage+ --------+ --------+ +| ?>90 ?| ?Stage one ?| ? Normal ?+ ---+ ---+ -------+| ?60-89 ?| ?Stage two ?| ? Decreased GFR ? + --+ --+ ------+| ?30-59 ?| ?Stage three ?| ? Stage three ? + --+ --+ ------+| ?15-29 ?| ?Stage four ? | ? Stage four ?+ ---+ ---+ -------+| ?<15 (or dialysis) ? ?| ?Stage five ? | ? Stage five ?+ ---+ ---+ -------+ *Each stage assumes the associated GFR level has been in effect for at least three months. ?Stages 1 to 5, with or without kidney disease, indicate chronic kidney disease. Notes: Determination of stages one and two (with eGFR >59mL/min/1.73 m2) requires estimation of kidney damage for at least three months as defined by structural or functional abnormalities of the kidney, manifested by either:Pathological abnormalities or Markers of kidney damage (including abnormalities in the composition of the blood or urine or abnormalities in imaging tests). Lab Interpretation Abnormal (test code = 93615-4) [facility] (ALB,T.PRO,BILI T,BU/BC,ALT,AST,ALK PHOS)2022-09-18 17:13:26 Test Item Value Reference Range Interpretation Comments TOTAL BILI (test code = 6245135357) 0.8 mg/dL 0.1-1.1 BILI UNCON (test code = 0911719297) 0.5 mg/dL 0.1-1.1 BILI CONJ (test code = 8478966046) 0.0 mg/dL 0.0-0.3 T PROTEIN (test code = 5174149098) 7.3 g/dL 6.3-8.2 ALBUMIN (test code = 9817125732) 4.6 g/dL 3.5-5.0 ALK PHOS (test code = 5744068766) 50 U/L 34-122 ALTv (test code = 1742-6) 19 U/L 5-50 AST(SGOT) (test code = 1375322746) 25 U/L 13-40 Lab Interpretation (test code = Normal 59914-8) [facility] WITH [id number] 17:01:21 Test Item Value Reference Range Interpretation Comments WBC (test code = See_Comment [Automated message] 6690-2) The system [employer] generated this result transmitted ref erence range: 4.20 - 1 0.70 10*3/?L. The re ference range was not u sed to interpret this result as normal/abnor mal. RBC (test code = See_Comment [Automated message] 789-8) The system [employer] generated this result transmitted ref erence range: 4.26 - 5 .52 10*6/?L. The re ference range was not u sed to interpret this result as normal/abnor mal. HGB (test code = 14.1 g/dL 12.2-16.4 718-7) HCT (test code = 41.2 % 38.4-49.3 4544-3) MCV (test code = 90.2 fL 81.7-95.6 787-2) MCH (test code = 30.9 pg 26.1-32.7 785-6) MCHC (test code = 34.2 g/dL 31.2-35.0 786-4) RDW-SD (test code 44.7 fL 38.5-51.6 = 29914-4) RDW-CV (test code 13.5 % 12.1-15.4 = 788-0) PLT (test code = See_Comment [Automated message] 777-3) The system [employer] generated this result transmitted ref erence range: 150 - 32 8 10*3/?L. The re ference range was not u sed to interpret this result as normal/abnor mal. MPV (test code = 11.6 fL 9.8-13.0 22763-3) NRBC/100 WBC (test See_Comment [Automat ed message] code = 9705178120) The syste m which generated this result transmitted ref erence range: 0.0 - 10 .0 /100 WBCs. The refer ence range was not u sed to interpret this result as normal/abnor mal. NRBC x10^3 (test See_Comment [Automated message] code = 3739351347) The syste m which generated this result transmitted ref erence range: 10*3/?L. The reference range was not used to interpr et this result as normal/abnormal . GRAN MAT (NEUT) % 60.5 % (test code = 770-8) IMM GRAN % (test 0.40 % code = 5928013251) LYMPH % (test code 28.2 % = 736-9) MONO % (test code 8.4 % = 5905-5) EOS % (test code = 1.8 % 713-8) BASO % (test code 0.7 % = 706-2) GRAN MAT 4.42 10*3/uL 1.99-6.95 x10^3(ANC) (test code = 1166371189) IMM GRAN x10^3 0.03 10*3/uL 0.00-0.06 (test code = 4979021912) LYMPH x10^3 (test 2.06 10*3/uL 1.09-3.23 code = 731-0) MONO x10^3 (test 0.61 10*3/uL 0.36-1.02 code = 742-7) EOS x10^3 (test 0.13 10*3/uL 0.06-0.53 code = 711-2) BASO x10^3 (test 0.05 10*3/uL 0.01-0.09 code = 704-7) [facility] GLUCOSE (AUTOMATED)2022-03-09 16:29:33 Test Item Value Reference Range Interpretation Comments POCT GLU (test code = 4401447260) 133 mg/dL 70-110 H Lab Interpretation (test code = Abnormal 42597-8) [facility] GLUCOSE (AUTOMATED)2022-03-09 12:52:21 Test Item Value Reference Range Interpretation Comments POCT GLU (test code = 1297993023) 184 mg/dL 70-110 H Lab Interpretation (test code = Abnormal 12358-0) [id number] 12:50:31 Test Item Value Reference Range Interpretation Comments NT-proBNP (test code 1890 pg/mL See_Comment H [Autom ated = 2521125698) message] The system which generated this result transmitted reference range : <=450. The reference range was not used to interpret this result as normal/abnormal . ANGELA (test code = ANGELA) Biotin has been reported to cause a negative bias, interpret results relative to patient's use of biotin. Lab Interpretation Abnormal (test code = 44597-5) [facility] METABOLIC PANEL (NA, K, CL, CO2, GLUCOSE, BUN, CREATININE, CA)2022-03-09 10:07:35 Test Item Value Reference Range Interpretation Comments NA (test code = 136 mmol/L 135-145 4702679154) K (test code = 4.0 mmol/L 3.5-5.0 Slight 3799629772) hemolysis CL (test code = 98 mmol/L 98-108 1059225543) CO2 TOTAL (test code 29 mmol/L 23-31 = 1394197831) AGAP (test code = 2-16 9835194844) BUN (test code = 21 mg/dL 7-23 5013211551) GLUCOSE (test code = 181 mg/dL 70-110 H 7387603682) CREATININE (test code 1.06 mg/dL 0.60-1.25 = 0675151660) CALCIUM (test code = 7.8 mg/dL 8.6-10.6 L 4280384655) eGFR (test code = mL/min/1.73m2 9299168904) ANGELA (test code = ANGELA) Association of Glomerular Filtration Rate (GFR) and Staging of Kidney Disease* + -----+ --------+ +| GFR (mL/min/1.73 m2) ?| With Kidney Damage ?| ?Without Kidney Damage+ +------- +---- --+| ?>90 ?| ?Stage one ?| ? Normal ?+ ------+ ---------+--------- +| ?60-89 ?| ?Stage two ?| ? Decreased GFR ? + -----+ --------+ +| ?30-59 ?| ?Stage three ?| ? Stage three ? + -----+ --------+ +| ?15-29 ?| ?Stage four ? | ? Stage four ?+ ------+ ---------+--------- +| ?<15 (or dialysis) ? ?| ?Stage five ? | ? Stage five ?+ ------+ ---------+--------- + *Each stage assumes the associated GFR level has been in effect for at least three months. ?Stages 1 to 5, with or without kidney disease, indicate chronic kidney disease. Notes: Determination of stages one and two (with eGFR >59mL/min/1.73 m2) requires estimation of kidney damage for at least three months as defined by structural or functional abnormalities of the kidney, manifested by either:Pathological abnormalities or Markers of kidney damage (including abnormalities in the composition of the blood or urine or abnormalities in imaging tests). Lab Interpretation Abnormal (test code = 50808-2) [facility] WITH [id number] 09:56:50 Test Item Value Reference Range Interpretation Comments WBC (test code = See_Comment [Automated 6690-2) message] The sy stem which generated this result transmitted reference range : 4.20 - 10.70 10*3/?L. The reference range was not used to interpret this result as normal/abnormal . RBC (test code = See_Comment L [Automated 789-8) message] The sy stem which generated this result transmitted reference range : 4.26 - 5.52 10*6/?L. The reference range was not used to interpret this result as normal/abnormal . HGB (test code = 11.7 g/dL 12.2-16.4 L 718-7) HCT (test code = 35.1 % 38.4-49.3 L 4544-3) MCV (test code = 91.2 fL 81.7-95.6 787-2) MCH (test code = 30.4 pg 26.1-32.7 785-6) MCHC (test code = 33.3 g/dL 31.2-35.0 786-4) RDW-SD (test code = 46.3 fL 38.5-51.6 53939-7) RDW-CV (test code = 13.8 % 12.1-15.4 788-0) PLT (test code = See_Comment L [Automated 777-3) message] The sy stem which generated this result transmitted reference range : 150 - 328 10*3/ ?L. The reference r chelsie was not used to interpret this result as normal/abnormal . MPV (test code = 12.5 fL 9.8-13.0 29551-1) NRBC/100 WBC (test See_Comment [Automat ed code = 3639132408) message] The system which generated this result transmitted reference range : 0.0 - 10.0 /100 WBCs. The refer ence range was not u sed to interpret th is result as normal/abnormal . NRBC x10^3 (test code <0.01 See_Comment [Auto mated = 6873190625) message] The s ystem which generated this result transmitted reference range : 10*3/?L. The reference range was not used to interpret this result as normal/abnormal . GRAN MAT (NEUT) % 68.9 % (test code = 770-8) IMM GRAN % (test code 0.50 % = 2272299651) LYMPH % (test code = 20.6 % 736-9) MONO % (test code = 7.9 % 5905-5) EOS % (test code = 1.4 % 713-8) BASO % (test code = 0.7 % 706-2) GRAN MAT x10^3(ANC) 5.05 10*3/uL 1.99-6.95 (test code = 2395378608) IMM GRAN x10^3 (test 0.04 10*3/uL 0.00-0.06 code = 5871463241) LYMPH x10^3 (test code 1.51 10*3/uL 1.09-3.23 = 731-0) MONO x10^3 (test code 0.58 10*3/uL 0.36-1.02 = 742-7) EOS x10^3 (test code = 0.10 10*3/uL 0.06-0.53 711-2) BASO x10^3 (test code 0.05 10*3/uL 0.01-0.09 = 704-7) Lab Interpretation Abnormal (test code = 52183-1) [facility] 01:36:51 Test Item Value Reference Range Interpretation Comments POCT GLU (test code = 3483995333) 143 mg/dL 70-110 H Lab Interpretation (test code = Abnormal 16781-6) [facility] GLUCOSE (AUTOMATED)2022-03-08 22:04:43 Test Item Value Reference Range Interpretation Comments POCT GLU (test code = 1339732882) 210 mg/dL 70-110 H Lab Interpretation (test code = Abnormal 47217-3) [facility], [id number] 19:44:30 Test Item Value Reference Range Interpretation Comments VIT B12 (test code = 356 pg/mL 240-930 2891106915) ANGELA (test code = ANGELA) Biotin has been reported to cause a positive bias, interpret results relative to patient's use of biotin. Lab Interpretation (test Normal code = 01137-7) [facility], [id number] 17:30:19 Test Item Value Reference Range Interpretation Comments VIT D 25OH (test code = 31 ng/mL 25-80 00418-5) ANGELA (test code = ANGELA) Deficiency: <20 ng/mLInsufficiency : 20-24 ng/mLOptimal: 25-80 ng/mL Lab Interpretation (test Normal code = 10606-7) [facility] 17:23:08 Test Item Value Reference Range Interpretation Comments Procalcitonin (test 0.05 ng/mL <0.07 code = 7313453467) ANGELA (test code = ANGELA) INTERPRETATION OF PROCALCITONIN RESULTS IN ADULTS >= 18 YEARS OF AGE Initiation and discontinuation of antibiotics on patients with suspected or confirmed Lower Respiratory Tract Infection in Adults >= 18 years of age. + +-------- --------+ + -----+|Procalcitonin |Interpretation ?|Antibiotic ? ? |Considerations ? |ng/mL ? | ?|recommendation | ? + +-------- --------+ + -----+| <0.1 ? | Bacterial ? ? ?| Strongly ? ? ?| ? | ?| infection very | discouraged ? | Overruling: ? | ?| unlikely ? ? ? | ? | ? Clinically unstable ? ? ? + +-------- --------+ + ? High risk for adverse ? ? | <0.25 ?| Bacterial ? ? ?| Discouraged ? | ? outcome ? | ?| infection ? ? ?| ? | ? SEE IMPORTANT NOTE ?| ?| unlikely ? ? ? | ? | ? + +-------- --------+ + -----+| >=0.25 ? ? ? | Bacterial ? ? ?| Encouraged ? ?| ? | ?| infection ? ? ?| ? | ? | ?| likely ? | ? | Consider treatment failure ?+ +------- ---------+ -+ if levels does not decrease | >0.5 ? | Bacterial ? ? ?| Strongly ? ? ?| appropriately ? | ?| infection very | encouraged ? ?| ? | ?| likely ? | ? | ? + +-------- --------+ + -----+ Discontinuation of antibiotics in high-acuity patients with suspected or confirmed sepsis in Adults >= 18 years of age. + +-------- --------+ + -----+|Procalcitonin |Interpretation ?|Antibiotic ? ? |Considerations ? |ng/mL ? | ?|recommendation | ? + +-------- --------+ + -----+| <0.25 ?| Bacterial ? ? ?| Strongly ? ? ?| ? | ?| infection very | discouraged ? | Overruling: ? | ?| unlikely ? ? ? | ? | ? Clinically unstable ? ? ? + +-------- --------+ + ? High risk for adverse ? ? | <0.5 or drop | Bacterial ? ? ?| Discouraged ? | ? outcome ? | >80% from ? ?| infection ? ? ?| ? | ? SEE IMPORTANT NOTE ?| highest PCT ?| unlikely ? ? ? | ? | ? | level ?| ?| ? | ? + +-------- --------+ + -----+| >=0.5 ?| Bacterial ? ? ?| Encouraged ? ?| ? | ?| infection ? ? ?| ? | ? | ?| likely ? | ? | Consider treatment failure ?+ +------- ---------+ -+ if levels does not decrease | >1.0 ? | Bacterial ? ? ?| Strongly ? ? ?| appropriately ? | ?| infection very | encouraged ? ?| ? | ?| likely ? | ? | ? + +-------- --------+ + -----+ Percentage of drop of Procalcitonin calculation for Discontinuation of antibiotics in high-acuity patients with suspected or confirmed sepsis in Adults >= 18 years of age. ? Procalcitonin highest{}-Procalcitonin current{}Delta Procalcitonin = x100% ? Procalcitonin current {} IMPORTANT NOTE: Procalcitonin may be elevated without bacterial infection by physiologic stress related to trauma, pollock, chronic dialysis, metastatic cancer, surgery in the past seven days, malaria, some fungal infections, and some forms of vasculitis. The interpretation algorithm may not apply to patients with immunosuppression (equivalent of >10 mg of prednisone daily), HIV with CD4 cell count < 350 cells/mm3, active malignancy on systemic chemotherapy, solid organ transplant or hematopoietic stem cell transplantation, or hospital acquired pneumonia. Additionally, some clinical trials of procalcitonin have excluded patients with shock requiring vasopressor use, acute respiratory failure requiring mechanical ventilation, or those with known lung abscess/empyema. For further information please refer to:[email or web address] Lab Interpretation Normal (test code = 11615-2) [facility]:05 Test Item Value Reference Range Interpretation Comments POCT GLU (test code = 2543396241) 151 mg/dL 70-110 H Lab Interpretation (test code = Abnormal 83591-7) [facility]60[facility]-08 12:38:20 Test Item Value Reference Range Interpretation Comments NA (test code = 137 mmol/L 135-145 [id number]) K (test code = 4.3 mmol/L 3.5-5.0 3037244179) CL (test code = 101 mmol/L 98-108 6054882879) CO2 TOTAL (test code = 25 mmol/L 23-31 1172799572) AGAP (test code = 2-16 9975719974) BUN (test code = 14 mg/dL 7-23 1851889429) GLUCOSE (test code = 161 mg/dL 70-110 H [id number]) CREATININE (test code = 0.95 mg/dL 0.60-1.25 2446464748) TOTAL BILI (test code = 1.3 mg/dL 0.1-1.1 H 2495269783) CALCIUM (test code = 8.2 mg/dL 8.6-10.6 L [id number]) T PROTEIN (test code = 6.9 g/dL 6.3-8.2 1594062312) ALBUMIN (test code = 4.0 g/dL 3.5-5.0 1018744668) ALK PHOS (test code = 41 U/L 34-122 8326400423) ALTv (test code = 36 U/L 5-50 1742-6) AST(SGOT) (test code = 39 U/L 13-40 5033286766) eGFR (test code = mL/min/1.73m2 6822830392) ANGELA (test code = ANGELA) Association of Glomerular Filtration Rate (GFR) and Staging of Kidney Disease* + --+ --+ ------+| GFR (mL/min/1.73 m2) ?| With Kidney Damage ?| ?Without Kidney Damage+ --------+ --------+ +| ?>90 ?| ?Stage one ?| ? Normal ?+ ---+ ---+ -------+| ?60-89 ?| ?Stage two ?| ? Decreased GFR ? + --+ --+ ------+| ?30-59 ?| ?Stage three ?| ? Stage three ? + --+ --+ ------+| ?15-29 ?| ?Stage four ? | ? Stage four ?+ ---+ ---+ -------+| ?<15 (or dialysis) ? ?| ?Stage five ? | ? Stage five ?+ ---+ ---+ -------+ *Each stage assumes the associated GFR level has been in effect for at least three months. ?Stages 1 to 5, with or without kidney disease, indicate chronic kidney disease. Notes: Determination of stages one and two (with eGFR >59mL/min/1.73 m2) requires estimation of kidney damage for at least three months as defined by structural or functional abnormalities of the kidney, manifested by either:Pathological abnormalities or Markers of kidney damage (including abnormalities in the composition of the blood or urine or abnormalities in imaging tests). Lab Interpretation Abnormal (test code = 50012-3) [facility] [id number] 12:17:15 Test Item Value Reference Interpretation Comments Range TROPONIN I (test 0.015 ng/mL See_Comment [Automated code = 8902705043) message] The system which generated this result transmitted reference range : <=0.034. The reference range was not used to interpret this result as normal/abnormal . ANGELA (test code = Reference (Normal) ANGELA) Range (defined by the 99th percentile reference limit): <= 0.034 ng/mL Note: Cardiac troponin begins to rise 3-4 hours after the onset of ischemia. Repeat in 4-6 hours if the sample was drawn within 3-4 hours of the onset of the symptom and found normal. Diagnosis of myocardial injury is made with acute changes in cTn concentrations with at least one serial sample above the 99th percentile upper reference limit (URL), taken together with the patient's clinical presentation. Biotin has been reported to cause a negative bias, interpret results relative to patient's use of biotin. Lab Interpretation Normal (test code = 59143-9) [facility] [id number] 12:16:35 Test Item Value Reference Interpretation Comments Range TROPONIN I (test 0.016 ng/mL See_Comment [Automated code = 3903061346) message] The system which generated this result transmitted reference range : <=0.034. The reference range was not used to interpret this result as normal/abnormal . ANGELA (test code = Reference (Normal) ANGELA) Range (defined by the 99th percentile reference limit): <= 0.034 ng/mL Note: Cardiac troponin begins to rise 3-4 hours after the onset of ischemia. Repeat in 4-6 hours if the sample was drawn within 3-4 hours of the onset of the symptom and found normal. Diagnosis of myocardial injury is made with acute changes in cTn concentrations with at least one serial sample above the 99th percentile upper reference limit (URL), taken together with the patient's clinical presentation. Biotin has been reported to cause a negative bias, interpret results relative to patient's use of biotin. Lab Interpretation Normal (test code = 33068-6) [id number] 12:13:14 Test Item Value Reference Range Interpretation Comments NT-proBNP (test code 4300 pg/mL See_Comment H [Autom ated = 3220878892) message] The system which generated this result transmitted reference range : <=450. The reference range was not used to interpret this result as normal/abnormal . ANGELA (test code = ANGELA) Biotin has been reported to cause a negative bias, interpret results relative to patient's use of biotin. Lab Interpretation Abnormal (test code = 52910-3) [facility] 12:04:54 Test Item Value Reference Range Interpretation Comments MAGNESIUM (test code = 8517699737) 2.0 mg/dL 1.7-2.4 Lab Interpretation (test code = Normal 42756-6) [facility] 12:04:29 Test Item Value Reference Range Interpretation Comments PHOSPHORUS (test code = 7802709496) 3.6 mg/dL 2.5-5.0 Lab Interpretation (test code = Normal 65819-0) [facility] WITH [id number] 11:47:35 Test Item Value Reference Range Interpretation Comments WBC (test code = See_Comment [Automated 6690-2) message] The sy stem which generated this result transmitted reference range : 4.20 - 10.70 10*3/?L. The reference range was not used to interpret this result as normal/abnormal . RBC (test code = See_Comment L [Automated 789-8) message] The sy stem which generated this result transmitted reference range : 4.26 - 5.52 10*6/?L. The reference range was not used to interpret this result as normal/abnormal . HGB (test code = 11.7 g/dL 12.2-16.4 L 718-7) HCT (test code = 35.0 % 38.4-49.3 L 4544-3) MCV (test code = 91.9 fL 81.7-95.6 787-2) MCH (test code = 30.7 pg 26.1-32.7 785-6) MCHC (test code = 33.4 g/dL 31.2-35.0 786-4) RDW-SD (test code = 47.6 fL 38.5-51.6 93935-1) RDW-CV (test code = 14.2 % 12.1-15.4 788-0) PLT (test code = See_Comment [Automated 777-3) message] The sy stem which generated this result transmitted reference range : 150 - 328 10*3/ ?L. The reference r chelsie was not used to interpret this result as normal/abnormal . MPV (test code = 12.6 fL 9.8-13.0 53527-6) NRBC/100 WBC (test See_Comment [Automat ed code = 8051252700) message] The system which generated this result transmitted reference range : 0.0 - 10.0 /100 WBCs. The refer ence range was not u sed to interpret th is result as normal/abnormal . NRBC x10^3 (test code <0.01 See_Comment [Auto mated = 9910919862) message] The s ystem which generated this result transmitted reference range : 10*3/?L. The reference range was not used to interpret this result as normal/abnormal . GRAN MAT (NEUT) % 70.3 % (test code = 770-8) IMM GRAN % (test code 0.60 % = 1673727383) LYMPH % (test code = 20.1 % 736-9) MONO % (test code = 8.2 % 5905-5) EOS % (test code = 0.3 % 713-8) BASO % (test code = 0.5 % 706-2) GRAN MAT x10^3(ANC) 7.23 10*3/uL 1.99-6.95 H (test code = 6877031015) IMM GRAN x10^3 (test 0.06 10*3/uL 0.00-0.06 code = 5373321736) LYMPH x10^3 (test code 2.06 10*3/uL 1.09-3.23 = 731-0) MONO x10^3 (test code 0.84 10*3/uL 0.36-1.02 = 742-7) EOS x10^3 (test code = 0.03 10*3/uL 0.06-0.53 L 711-2) BASO x10^3 (test code 0.05 10*3/uL 0.01-0.09 = 704-7) Lab Interpretation Abnormal (test code = 77651-3) [facility] [id number] 11:19:04 Test Item Value Reference Range Interpretation Comments IRON (test code = 8705628259) 47 ug/dL 50-160 L TIBC (test code = 4207159067) 283 ug/dL 250-410 % FE SAT (test code = 8295920018) 17 % 20-50 L Lab Interpretation (test code = Abnormal 24969-7) [facility] [id number] 10:49:43 Test Item Value Reference Range Interpretation Comments PH (test code = 7.32-7.42 H 3010445704) PCO2 MANUELA (test code = See_Comment L [Auto mated message] 6721954603) The system [employer] generated this result transmitted ref erence range: 41 - 51 mmHg. The reference r chelsie was not used to interpret this result as normal/abnor mal. PO2 MANUELA (test code = See_Comment [Autom ated message] 6148413330) The system [employer] generated this result transmitted ref erence range: 25 - 40 mmHg. The reference r chelsie was not used to interpret this result as normal/abnor mal. HCO3 MANUELA (test code = See_Comment [Auto mated message] 8869614212) The system [employer] generated this result transmitted ref erence range: 24 - 28 mEq/L. The reference r chelsie was not used to interpret this result as normal/abnor mal. AC VBE(BEAKER) (test mEq/L code = 9809872816) Lab Interpretation (test Abnormal code = 70242-8) [facility]FERR[facility]IN [id number] 08:52:25 Test Item Value Reference Range Interpretation Comments FERRITIN (test code = 366.0 ng/mL 18.0-464.0 4148448269) ANGELA (test code = ANGELA) Biotin has been reported to cause a negative bias, interpret results relative to patient's use of biotin. Lab Interpretation (test Normal code = 37851-9) [facility] [id number] 08:51:49 Test Item Value Reference Range Interpretation Comments TSH (test code = See_Comment Biotin has been 5438396664) reported to cau se a negative bias, interpret resul ts relative to pat ient's use of biotin. [Automated mess age] The system [employer] generated this result transmitted ref erence range: 0.45 - 4 .70 mIU/L. The refe rence range was not u sed to interpret this result as normal/abnor mal. Lab Interpretation (test Normal code = 65234-6) [facility] CenterURIC [id number] 08:51:44 Test Item Value Reference Range Interpretation Comments URIC ACID (test code = 9820201814) 3.9 mg/dL 3.6-8.0 Lab Interpretation (test code = Normal 42137-0) [facility] 08:51:34 Test Item Value Reference Range Interpretation Comments PHOSPHORUS (test code = 0972861108) 3.4 mg/dL 2.5-5.0 Lab Interpretation (test code = Normal 28142-3) [facility] CenterLIPID PANEL (19160)(TOTAL CHOLESTEROL, TRIGLYCERIDES, HDL)2022-03-08 08:16:58 Test Item Value Reference Range Interpretation Comments CHOL (test code = 187 mg/dL 120-200 8283349727) HDL (test code = 74 mg/dL >40 6581274054) HDLC RATIO (test code = See_Comment [Au tomated message] 7468052289) The system [employer] generated this result transmit bucky reference range : <=5.0. The refe rence range was not u sed to interpret th is result as normal/abnormal . TRIG (test code = 122 mg/dL 30-170 0831685099) LDL CHOL (test code = 89 mg/dL See_Comment [Auto mated message] 07178-8) The system [employer] generated this result transmit bucky reference range : <=160. The refe rence range was not u sed to interpret th is result as normal/abnormal . VLDL (test code = 24 mg/dL 5-60 2212846617) Lab Interpretation (test Normal code = 02778-5) [facility]GLYCOSYLATED HEMOGLOBIN (A1C)2022-03-08 07:12:40 Test Item Value Reference Range Interpretation Comments HGB A1C (test code = 7.4 % 4.0-5.7 H 4548-4) ANGELA (test code = ANGELA) Reference RangesNormal: <5.7%Prediabetes: 5.7 - 6.4%Diabetes: > 6.5% Lab Interpretation (test Abnormal code = 41843-0) [facility] 02:31:30 Test Item Value Reference Range Interpretation Comments MAGNESIUM (test code = 2193210047) 1.9 mg/dL 1.7-2.4 Lab Interpretation (test code = Normal 28394-1) [facility] CenterTR[facility] [id number] 02:11:05 Test Item Value Reference Interpretation Comments Range TROPONIN I (test 0.006 ng/mL See_Comment [Automated code = 6328181689) message] The system which generated this result transmitted reference range : <=0.034. The reference range was not used to interpret this result as normal/abnormal . ANGELA (test code = Reference (Normal) ANGELA) Range (defined by the 99th percentile reference limit): <= 0.034 ng/mL Note: Cardiac troponin begins to rise 3-4 hours after the onset of ischemia. Repeat in 4-6 hours if the sample was drawn within 3-4 hours of the onset of the symptom and found normal. Diagnosis of myocardial injury is made with acute changes in cTn concentrations with at least one serial sample above the 99th percentile upper reference limit (URL), taken together with the patient's clinical presentation. Biotin has been reported to cause a negative bias, interpret results relative to patient's use of biotin. Lab Interpretation Normal (test code = 74688-4) [facility] [id number] 02:07:43 Test Item Value Reference Range Interpretation Comments NT-proBNP (test code 3390 pg/mL See_Comment H [Autom ated = 7828605718) message] The system which generated this result transmitted reference range : <=450. The reference range was not used to interpret this result as normal/abnormal . ANGELA (test code = ANGELA) Biotin has been reported to cause a negative bias, interpret results relative to patient's use of biotin. Lab Interpretation Abnormal (test code = 33557-6) [facility]COMP. MET[facility]OLIC PANEL (25406)2022-03-08 01:59:23 Test Item Value Reference Range Interpretation Comments NA (test code = 134 mmol/L 135-145 L 7902854540) K (test code = 5.4 mmol/L 3.5-5.0 H 6351789182) CL (test code = 99 mmol/L 98-108 4750755660) CO2 TOTAL (test code = 25 mmol/L 23-31 9503448955) AGAP (test code = 2-16 3812505057) BUN (test code = 16 mg/dL 7-23 3520467966) GLUCOSE (test code = 211 mg/dL 70-110 H 8073682519) CREATININE (test code = 1.01 mg/dL 0.60-1.25 7008839048) TOTAL BILI (test code = 1.2 mg/dL 0.1-1.1 H 8540233545) CALCIUM (test code = 8.4 mg/dL 8.6-10.6 L 5536947939) T PROTEIN (test code = 7.1 g/dL 6.3-8.2 0621890996) ALBUMIN (test code = 4.3 g/dL 3.5-5.0 8248601441) ALK PHOS (test code = 42 U/L 34-122 2407761998) ALTv (test code = 40 U/L 5-50 1742-6) AST(SGOT) (test code = 47 U/L 13-40 H 8249199485) eGFR (test code = mL/min/1.73m2 8085033083) ANGELA (test code = ANGELA) Association of Glomerular Filtration Rate (GFR) and Staging of Kidney Disease* + --+ --+ ------+| GFR (mL/min/1.73 m2) ?| With Kidney Damage ?| ?Without Kidney Damage+ --------+ --------+ +| ?>90 ?| ?Stage one ?| ? Normal ?+ ---+ ---+ -------+| ?60-89 ?| ?Stage two ?| ? Decreased GFR ? + --+ --+ ------+| ?30-59 ?| ?Stage three ?| ? Stage three ? + --+ --+ ------+| ?15-29 ?| ?Stage four ? | ? Stage four ?+ ---+ ---+ -------+| ?<15 (or dialysis) ? ?| ?Stage five ? | ? Stage five ?+ ---+ ---+ -------+ *Each stage assumes the associated GFR level has been in effect for at least three months. ?Stages 1 to 5, with or without kidney disease, indicate chronic kidney disease. Notes: Determination of stages one and two (with eGFR >59mL/min/1.73 m2) requires estimation of kidney damage for at least three months as defined by structural or functional abnormalities of the kidney, manifested by either:Pathological abnormalities or Markers of kidney damage (including abnormalities in the composition of the blood or urine or abnormalities in imaging tests). Lab Interpretation Abnormal (test code = 40378-4) [facility] CenterACT[facility] THRMPLAS [id number] 01:57:21 Test Item Value Reference Range Interpretation Comments APTT Patient (test See_Comment [Automat ed code = 3173-2) message] The system which generated this result transmitted reference range : 23 - 38 Seconds . The reference range was not used to interpr et this result as normal/abnormal . ANGELA (test code = ANGELA) The [facility] patient population mean normal value for aPTT is 30 seconds. Lab Interpretation Normal (test code = 78972-0) [facility] CenterPROTHROMBIN TIME / [id number] 01:55:20 Test Item Value Reference Range Interpretation Comments PROTIME PATIENT (test See_Comment H [Auto mated message] code = 5964-2) The system wh ich generated this result transmitted ref erence range: 12.0 - 1 4.7 Seconds. The reference range was not used to int erpret this result as normal/abnormal . INR (test code = 6301-6) Nor mal INR <1.1; Warfarin Therap eutic range 2.0 to 3. 0 or 2.5 to 3.5, dep ending upon the indica tions. Lab Interpretation (test Abnormal code = 60860-7) [facility] CenterCBC WITH [id number] 01:47:57 Test Item Value Reference Range Interpretation Comments WBC (test code = See_Comment [Automated 6290-2) message] The sy stem which generated this result transmitted reference range : 4.20 - 10.70 10*3/?L. The reference range was not used to interpret this result as normal/abnormal . RBC (test code = See_Comment L [Automated 319-8) message] The sy stem which generated this result transmitted reference range : 4.26 - 5.52 10*6/?L. The reference range was not used to interpret this result as normal/abnormal . HGB (test code = 12.7 g/dL 12.2-16.4 718-7) HCT (test code = 38.0 % 38.4-49.3 L 4544-3) MCV (test code = 92.5 fL 81.7-95.6 787-2) MCH (test code = 30.9 pg 26.1-32.7 785-6) MCHC (test code = 33.4 g/dL 31.2-35.0 786-4) RDW-SD (test code = 48.3 fL 38.5-51.6 70398-8) RDW-CV (test code = 14.1 % 12.1-15.4 788-0) PLT (test code = See_Comment [Automated 777-3) message] The sy stem which generated this result transmitted reference range : 150 - 328 10*3/ ?L. The reference r chelsie was not used to interpret this result as normal/abnormal . MPV (test code = 12.1 fL 9.8-13.0 66800-0) NRBC/100 WBC (test See_Comment [Automat ed code = 8929920390) message] The system which generated this result transmitted reference range : 0.0 - 10.0 /100 WBCs. The refer ence range was not u sed to interpret th is result as normal/abnormal . NRBC x10^3 (test code <0.01 See_Comment [Auto mated = 9371428486) message] The s ystem which generated this result transmitted reference range : 10*3/?L. The reference range was not used to interpret this result as normal/abnormal . GRAN MAT (NEUT) % 75.6 % (test code = 770-8) IMM GRAN % (test code 0.60 % = 9486437777) LYMPH % (test code = 15.7 % 736-9) MONO % (test code = 7.3 % 5905-5) EOS % (test code = 0.4 % 713-8) BASO % (test code = 0.4 % 706-2) GRAN MAT x10^3(ANC) 7.58 10*3/uL 1.99-6.95 H (test code = 1596754901) IMM GRAN x10^3 (test 0.06 10*3/uL 0.00-0.06 code = 4481460300) LYMPH x10^3 (test code 1.57 10*3/uL 1.09-3.23 = 731-0) MONO x10^3 (test code 0.73 10*3/uL 0.36-1.02 = 742-7) EOS x10^3 (test code = 0.04 10*3/uL 0.06-0.53 L 711-2) BASO x10^3 (test code 0.04 10*3/uL 0.01-0.09 = 704-7) Lab Interpretation Abnormal (test code = 73727-8) [facility] CenterLactic Acid Whole [id number] 01:36:15 Test Item Value Reference Range Interpretation Comments LACTIC ACID (test code = 1.63 mmol/L 0.50-2.20 1333445671) Lab Interpretation (test code = Normal 86842-4) [facility] (NA, K, CL, CO2, GLUCOSE, BUN, CREATININE, CA)2022-01-29 12:26:55 Test Item Value Reference Range Interpretation Comments NA (test code = 139 mmol/L 135-145 0218469345) K (test code = 4.0 mmol/L 3.5-5.0 3389917633) CL (test code = 104 mmol/L 98-108 6614406767) CO2 TOTAL (test code = 26 mmol/L 23-31 1464603465) AGAP (test code = 2-16 1127804363) BUN (test code = 25 mg/dL 7-23 H 5822854459) GLUCOSE (test code = 157 mg/dL 70-110 H 5885801030) CREATININE (test code = 1.02 mg/dL 0.60-1.25 1858252464) CALCIUM (test code = 8.5 mg/dL 8.6-10.6 L 3181734402) eGFR (test code = mL/min/1.73m2 9048353924) ANGELA (test code = ANGELA) Association of Glomerular Filtration Rate (GFR) and Staging of Kidney Disease* + --+ --+ ------+| GFR (mL/min/1.73 m2) ?| With Kidney Damage ?| ?Without Kidney Damage+ --------+ --------+ +| ?>90 ?| ?Stage one ?| ? Normal ?+ ---+ ---+ -------+| ?60-89 ?| ?Stage two ?| ? Decreased GFR ? + --+ --+ ------+| ?30-59 ?| ?Stage three ?| ? Stage three ? + --+ --+ ------+| ?15-29 ?| ?Stage four ? | ? Stage four ?+ ---+ ---+ -------+| ?<15 (or dialysis) ? ?| ?Stage five ? | ? Stage five ?+ ---+ ---+ -------+ *Each stage assumes the associated GFR level has been in effect for at least three months. ?Stages 1 to 5, with or without kidney disease, indicate chronic kidney disease. Notes: Determination of stages one and two (with eGFR >59mL/min/1.73 m2) requires estimation of kidney damage for at least three months as defined by structural or functional abnormalities of the kidney, manifested by either:Pathological abnormalities or Markers of kidney damage (including abnormalities in the composition of the blood or urine or abnormalities in imaging tests). Lab Interpretation Abnormal (test code = 33909-5) [facility] WITH [id number] 11:58:08 Test Item Value Reference Range Interpretation Comments WBC (test code = See_Comment [Automated 5282-2) message] The sy stem which generated this result transmitted reference range : 4.20 - 10.70 10*3/?L. The reference range was not used to interpret this result as normal/abnormal . RBC (test code = See_Comment L [Automated 073-8) message] The sy stem which generated this result transmitted reference range : 4.26 - 5.52 10*6/?L. The reference range was not used to interpret this result as normal/abnormal . HGB (test code = 12.7 g/dL 12.2-16.4 718-7) HCT (test code = 38.4 % 38.4-49.3 4544-3) MCV (test code = 90.6 fL 81.7-95.6 787-2) MCH (test code = 30.0 pg 26.1-32.7 785-6) MCHC (test code = 33.1 g/dL 31.2-35.0 786-4) RDW-SD (test code = 45.0 fL 38.5-51.6 02631-7) RDW-CV (test code = 13.5 % 12.1-15.4 788-0) PLT (test code = See_Comment [Automated 777-3) message] The sy stem which generated this result transmitted reference range : 150 - 328 10*3/ ?L. The reference r chelsie was not used to interpret this result as normal/abnormal . MPV (test code = 11.8 fL 9.8-13.0 20653-9) NRBC/100 WBC (test See_Comment [Automat ed code = 6208837832) message] The system which generated this result transmitted reference range : 0.0 - 10.0 /100 WBCs. The refer ence range was not u sed to interpret th is result as normal/abnormal . NRBC x10^3 (test code <0.01 See_Comment [Auto mated = 0138584215) message] The s ystem which generated this result transmitted reference range : 10*3/?L. The reference range was not used to interpret this result as normal/abnormal . GRAN MAT (NEUT) % 65.7 % (test code = 770-8) IMM GRAN % (test code 0.50 % = 1117662521) LYMPH % (test code = 23.4 % 736-9) MONO % (test code = 8.6 % 5905-5) EOS % (test code = 1.3 % 713-8) BASO % (test code = 0.5 % 706-2) GRAN MAT x10^3(ANC) 5.15 10*3/uL 1.99-6.95 (test code = 0367567111) IMM GRAN x10^3 (test 0.04 10*3/uL 0.00-0.06 code = 0009455925) LYMPH x10^3 (test code 1.83 10*3/uL 1.09-3.23 = 731-0) MONO x10^3 (test code 0.67 10*3/uL 0.36-1.02 = 742-7) EOS x10^3 (test code = 0.10 10*3/uL 0.06-0.53 711-2) BASO x10^3 (test code 0.04 10*3/uL 0.01-0.09 = 704-7) Lab Interpretation Abnormal (test code = 16646-3) [facility] [id number] 12:54:40 Test Item Value Reference Range Interpretation Comments NT-proBNP (test code 1070 pg/mL See_Comment H [Autom ated = 7935798659) message] The system which generated this result transmitted reference range : <=450. The reference range was not used to interpret this result as normal/abnormal . ANGELA (test code = ANGELA) Biotin has been reported to cause a negative bias, interpret results relative to patient's use of biotin. Lab Interpretation Abnormal (test code = 95284-2) [facility] CenterMagnesium [id number] 12:46:39 Test Item Value Reference Range Interpretation Comments MAGNESIUM (test code = 5696261443) 1.8 mg/dL 1.7-2.4 Lab Interpretation (test code = Normal 13391-8) [facility] Metabolic Panel (NA, K, CL, CO2, GLUCOSE, BUN, CREATININE, CA)2022 12:46:19 Test Item Value Reference Range Interpretation Comments NA (test code = 140 mmol/L 135-145 3395077862) K (test code = 4.2 mmol/L 3.5-5.0 2454804125) CL (test code = 105 mmol/L 98-108 4629050321) CO2 TOTAL (test code = 29 mmol/L 23-31 3532610559) AGAP (test code = 2-16 8964884482) BUN (test code = 33 mg/dL 7-23 H 0259477856) GLUCOSE (test code = 150 mg/dL 70-110 H 3118453415) CREATININE (test code = 1.22 mg/dL 0.60-1.25 4236414278) CALCIUM (test code = 8.6 mg/dL 8.6-10.6 9427843619) eGFR (test code = mL/min/1.73m2 3646361053) ANGELA (test code = ANGELA) Association of Glomerular Filtration Rate (GFR) and Staging of Kidney Disease* + --+ --+ ------+| GFR (mL/min/1.73 m2) ?| With Kidney Damage ?| ?Without Kidney Damage+ --------+ --------+ +| ?>90 ?| ?Stage one ?| ? Normal ?+ ---+ ---+ -------+| ?60-89 ?| ?Stage two ?| ? Decreased GFR ? + --+ --+ ------+| ?30-59 ?| ?Stage three ?| ? Stage three ? + --+ --+ ------+| ?15-29 ?| ?Stage four ? | ? Stage four ?+ ---+ ---+ -------+| ?<15 (or dialysis) ? ?| ?Stage five ? | ? Stage five ?+ ---+ ---+ -------+ *Each stage assumes the associated GFR level has been in effect for at least three months. ?Stages 1 to 5, with or without kidney disease, indicate chronic kidney disease. Notes: Determination of stages one and two (with eGFR >59mL/min/1.73 m2) requires estimation of kidney damage for at least three months as defined by structural or functional abnormalities of the kidney, manifested by either:Pathological abnormalities or Markers of kidney damage (including abnormalities in the composition of the blood or urine or abnormalities in imaging tests). Lab Interpretation Abnormal (test code = 88163-8) [facility] [id number] 12:44:18 Test Item Value Reference Range Interpretation Comments PHOSPHORUS (test code = 5995754880) 3.5 mg/dL 2.5-5.0 Lab Interpretation (test code = Normal 41356-4) [facility] with [id number] 12:00:58 Test Item Value Reference Range Interpretation Comments WBC (test code = See_Comment [Automated 3755-2) message] The sy stem which generated this result transmitted reference range : 4.20 - 10.70 10*3/?L. The reference range was not used to interpret this result as normal/abnormal . RBC (test code = See_Comment L [Automated 789-8) message] The sy stem which generated this result transmitted reference range : 4.26 - 5.52 10*6/?L. The reference range was not used to interpret this result as normal/abnormal . HGB (test code = 12.9 g/dL 12.2-16.4 718-7) HCT (test code = 38.4 % 38.4-49.3 4544-3) MCV (test code = 90.4 fL 81.7-95.6 787-2) MCH (test code = 30.4 pg 26.1-32.7 785-6) MCHC (test code = 33.6 g/dL 31.2-35.0 786-4) RDW-SD (test code = 45.4 fL 38.5-51.6 86416-7) RDW-CV (test code = 13.6 % 12.1-15.4 788-0) PLT (test code = See_Comment [Automated 777-3) message] The sy stem which generated this result transmitted reference range : 150 - 328 10*3/ ?L. The reference r chelsie was not used to interpret this result as normal/abnormal . MPV (test code = 11.7 fL 9.8-13.0 44608-1) NRBC/100 WBC (test See_Comment [Automat ed code = 2630507041) message] The system which generated this result transmitted reference range : 0.0 - 10.0 /100 WBCs. The refer ence range was not u sed to interpret th is result as normal/abnormal . NRBC x10^3 (test code <0.01 See_Comment [Auto mated = 9938076874) message] The s ystem which generated this result transmitted reference range : 10*3/?L. The reference range was not used to interpret this result as normal/abnormal . GRAN MAT (NEUT) % 61.2 % (test code = 770-8) IMM GRAN % (test code 0.50 % = 5780485527) LYMPH % (test code = 26.5 % 736-9) MONO % (test code = 10.1 % 5905-5) EOS % (test code = 1.2 % 713-8) BASO % (test code = 0.5 % 706-2) GRAN MAT x10^3(ANC) 4.75 10*3/uL 1.99-6.95 (test code = 3149991849) IMM GRAN x10^3 (test 0.04 10*3/uL 0.00-0.06 code = 1543040359) LYMPH x10^3 (test code 2.06 10*3/uL 1.09-3.23 = 731-0) MONO x10^3 (test code 0.78 10*3/uL 0.36-1.02 = 742-7) EOS x10^3 (test code = 0.09 10*3/uL 0.06-0.53 711-2) BASO x10^3 (test code 0.04 10*3/uL 0.01-0.09 = 704-7) Lab Interpretation Abnormal (test code = 57679-6) [facility] [id number] 01:23:50 Test Item Value Reference Interpretation Comments Range TROPONIN I (test 0.004 ng/mL See_Comment [Automated code = 2433317357) message] The system which generated this result transmitted reference range : <=0.034. The reference range was not used to interpret this result as normal/abnormal . ANGELA (test code = Reference (Normal) ANGELA) Range (defined by the 99th percentile reference limit): <= 0.034 ng/mL Note: Cardiac troponin begins to rise 3-4 hours after the onset of ischemia. Repeat in 4-6 hours if the sample was drawn within 3-4 hours of the onset of the symptom and found normal. Diagnosis of myocardial injury is made with acute changes in cTn concentrations with at least one serial sample above the 99th percentile upper reference limit (URL), taken together with the patient's clinical presentation. Biotin has been reported to cause a negative bias, interpret results relative to patient's use of biotin. Lab Interpretation Normal (test code = 21408-6) [facility]MINAL [id number] 01:21:34 Test Item Value Reference Range Interpretation Comments NT-proBNP (test code 1350 pg/mL See_Comment H [Autom ated = 5737340467) message] The system which generated this result transmitted reference range : <=450. The reference range was not used to interpret this result as normal/abnormal . ANGELA (test code = ANGELA) Biotin has been reported to cause a negative bias, interpret results relative to patient's use of biotin. Lab Interpretation Abnormal (test code = 91714-0) [facility]MAGN[facility]IUM2022-03-13 01:12:33 Test Item Value Reference Range Interpretation Comments MAGNESIUM (test code = 7908277044) 1.7 mg/dL 1.7-2.4 Lab Interpretation (test code = Normal 28448-8) [facility]. METABOLIC PANEL (90516)2022 01:12:13 Test Item Value Reference Range Interpretation Comments NA (test code = 138 mmol/L 135-145 0519137449) K (test code = 4.7 mmol/L 3.5-5.0 4209078013) CL (test code = 101 mmol/L 98-108 2382990896) CO2 TOTAL (test code = 27 mmol/L 23-31 3557252863) AGAP (test code = 2-16 1275708839) BUN (test code = 34 mg/dL 7-23 H 8908605591) GLUCOSE (test code = 135 mg/dL 70-110 H 9621649414) CREATININE (test code = 1.72 mg/dL 0.60-1.25 H 1457507351) TOTAL BILI (test code = 0.5 mg/dL 0.1-1.4 5757504422) CALCIUM (test code = 9.1 mg/dL 8.6-10.6 9476014150) T PROTEIN (test code = 6.7 g/dL 6.3-8.2 3386860086) ALBUMIN (test code = 4.2 g/dL 3.5-5.0 7312856091) ALK PHOS (test code = 39 U/L 34-122 4269129523) ALTv (test code = 26 U/L 5-50 1742-6) AST(SGOT) (test code = 33 U/L 13-40 2270932737) eGFR (test code = mL/min/1.73m2 2653758136) ANGELA (test code = ANGELA) Association of Glomerular Filtration Rate (GFR) and Staging of Kidney Disease* + --+ --+ ------+| GFR (mL/min/1.73 m2) ?| With Kidney Damage ?| ?Without Kidney Damage+ --------+ --------+ +| ?>90 ?| ?Stage one ?| ? Normal ?+ ---+ ---+ -------+| ?60-89 ?| ?Stage two ?| ? Decreased GFR ? + --+ --+ ------+| ?30-59 ?| ?Stage three ?| ? Stage three ? + --+ --+ ------+| ?15-29 ?| ?Stage four ? | ? Stage four ?+ ---+ ---+ -------+| ?<15 (or dialysis) ? ?| ?Stage five ? | ? Stage five ?+ ---+ ---+ -------+ *Each stage assumes the associated GFR level has been in effect for at least three months. ?Stages 1 to 5, with or without kidney disease, indicate chronic kidney disease. Notes: Determination of stages one and two (with eGFR >59mL/min/1.73 m2) requires estimation of kidney damage for at least three months as defined by structural or functional abnormalities of the kidney, manifested by either:Pathological abnormalities or Markers of kidney damage (including abnormalities in the composition of the blood or urine or abnormalities in imaging tests). Lab Interpretation Abnormal (test code = 89872-9) [facility] WITH [id number] 23:52:28 Test Item Value Reference Range Interpretation Comments WBC (test code = See_Comment [Automated message] 6690-2) The system [employer] generated this result transmitted ref erence range: 4.20 - 1 0.70 10*3/?L. The re ference range was not u sed to interpret this result as normal/abnor mal. RBC (test code = See_Comment [Automated message] 789-8) The system [employer] generated this result transmitted ref erence range: 4.26 - 5 .52 10*6/?L. The re ference range was not u sed to interpret this result as normal/abnor mal. HGB (test code = 14.2 g/dL 12.2-16.4 718-7) HCT (test code = 42.1 % 38.4-49.3 4544-3) MCV (test code = 90.5 fL 81.7-95.6 787-2) MCH (test code = 30.5 pg 26.1-32.7 785-6) MCHC (test code = 33.7 g/dL 31.2-35.0 786-4) RDW-SD (test code 44.8 fL 38.5-51.6 = 55171-8) RDW-CV (test code 13.5 % 12.1-15.4 = 788-0) PLT (test code = See_Comment [Automated message] 777-3) The system whic h generated this result transmitted ref erence range: 150 - 32 8 10*3/?L. The re ference range was not u sed to interpret this result as normal/abnor mal. MPV (test code = 12.1 fL 9.8-13.0 53741-6) NRBC/100 WBC (test See_Comment [Automat ed message] code = 0296269205) The syste m which generated this result transmitted ref erence range: 0.0 - 10 .0 /100 WBCs. The refer ence range was not u sed to interpret this result as normal/abnor mal. NRBC x10^3 (test <0.01 See_Comment [Automated message] code = 2763087722) The syste m which generated this result transmitted ref erence range: 10*3/?L. The reference range was not used to interpr et this result as normal/abnormal . GRAN MAT (NEUT) % 63.8 % (test code = 770-8) IMM GRAN % (test 0.50 % code = 3164261816) LYMPH % (test code 25.3 % = 736-9) MONO % (test code 9.0 % = 5905-5) EOS % (test code = 1.0 % 713-8) BASO % (test code 0.4 % = 706-2) GRAN MAT 6.01 10*3/uL 1.99-6.95 x10^3(ANC) (test code = 2385565397) IMM GRAN x10^3 0.05 10*3/uL 0.00-0.06 (test code = 1228180983) LYMPH x10^3 (test 2.39 10*3/uL 1.09-3.23 code = 731-0) MONO x10^3 (test 0.85 10*3/uL 0.36-1.02 code = 742-7) EOS x10^3 (test 0.09 10*3/uL 0.06-0.53 code = 711-2) BASO x10^3 (test 0.04 10*3/uL 0.01-0.09 code = 704-7) [facility] RNA [Presence] in Respiratory specimen by DIXIE with probe [id number] 19:56:02 Test Item Value Reference Range Interpretation Comments SARS-CoV-2 (COVID-19) RNA Not detected Not-Detected [Presence] in Respiratory specimen by DIXIE with probe detection (test code = 91357-9) Whether patient is employed in a healthcare setting (test code = 19973-0) Whether the patient has symptoms related to condition of interest (test code = 42256-3) Patient was hospitalized because of this condition (test code = 41276-8) Whether the patient was admitted to intensive care unit (ICU) for condition of interest (test code = 52187-3) Whether patient resides in a congregate care setting (test code = 22804-2) [facility] Notes Date/Time Note Provider Source 2023-06-13 17:50:00-00:00 [facility] ([facility]) Rehab Progress Note REPORT#:[id number] REPORT STATUS: Signed DATE:06/13/23 TIME: 1750 PATIENT: ODIN ZENG UNIT #: [id number] ROOM/BED: 3341-1 : 40 AGE: 83 SEX: M ATTEND: Ramo Sanchez MD ADM AUTHOR: Nguyen Andrew NP * ALL edits or amendments must be made on the [employer]/computer document * Subjective Chief complaint: PMR follow-up states he is just not feeling so good today NAD OOB in chair + generalized weakness Denies ALBERTO/N/V/D/CP 14 systems reviewed and neg. except that above. Objective General VS: Vital Signs: Date Time Temp Pulse Resp B/P B/P Pulse O2 O2 F low FiO2 Mean Ox Delivery Rate 06/13 1549 97.9 71 18 134/60 0.0 100 06/13 1119 98.1 71 17 135/60 0.0 94 06/13 0647 98.6 66 16 114/81 0.0 100 06/13 0500 65 80 06/13 0405 98.6 68 20 106/54 71.4 96 Room air 06/13 0400 67 27 100 06/13 0200 67 99 06/13 0000 69 99 06/12 2315 69 18 112/65 80.6 94 Room air 06/12 2300 68 100 06/12 2100 69 100 06/12 1951 97.3 68 18 137/63 0.0 100 06/12 1900 69 100 PATIENT WEIGHT: Weight (lb): 185 Weight (oz): 10.07 Weight (kg): 84.200 Medications: Active Meds + DC'd Last 24 Hrs Apixaban (ELIQUIS 5MG TABLET) 5 MG BID PO Furosemide (LASIX) 40 MG DAILY PO Sodium Chloride (SODIUM CHLORIDE) 10 ML ASDIR I V Amlodipine Besylate (NORVASC) 5 MG DAILY PO Tamsulosin HCl (Flomax 0.4 mg) 0.4 MG DAILY 1700 PO Amiodarone HCl (CORDARONE) 200 MG BID PO (DC) Insulin Glargine (Semglee) 10 UNIT BID SUBQ Ipratropium [place] (ATROVENT) 500 MCG RTQ2H PRN PRN INH Cyanocobalamin (Vitamin B-12 500 mcg tab) 500 MC G DAILY PO Ferrous Sulfate (FERROUS SULFATE) 325 MG DAILY P O Bisacodyl (DULCOLAX) 10 MG ONCE PRN RECTAL Magnesium Hydroxide (MILK OF MAGNESIA) 30 ML ON CE PRN PO Atorvastatin Calcium (LIPITOR) 40 MG 2100 PO Insulin Human Lispro (HUMALOG) 0 AC HS SUBQ Polyethylene Glycol (MIRALAX) 17 GM DAILY PO Levothyroxine Sodium (Synthroid) 75 MCG DAILY 06 00 PO Aspirin (ASPIRIN) 81 MG DAILY PO Docusate Sodium (COLACE) 100 MG BID PO Sennosides (Senna Lax 8.6 MG TABLET) 17.2 MG BED TIME PO Acetaminophen (TYLENOL) 650 MG Q4H PRN PRN PO Acetaminophen (TYLENOL) 650 MG Q4H PRN PRN RECTA L Dextrose/Water (DEXTROSE 10% IN WATER) 125 ML DIR PRN IV (CKD) Dextrose/Water (DEXTROSE 10% IN WATER) 250 ML DIR PRN IV (CKD) Glucagon (GLUCAGON) 1 MG ASDIR PRN IM Magnesium Sulfate (MAGNESIUM SULFATE 4GM/SWFI 10 0ML) 100 ML ASDIR PRN IV Magnesium Sulfate (MAGNESIUM SULFATE 2GM/SWFI 50 ML) 50 ML ASDIR PRN IV Magnesium Sulfate/Dextrose (MAGNESIUM SULFATE 1G M/D5W 100ML) 100 ML ASDIR PRN IV Ondansetron HCl (ZOFRAN) 4 MG Q6H PRN PRN IV Physical Exam General appearance: alert, awake Psych: alert, oriented x 3 HEENT: anicteric, sclera clear Neck: supple, no JVD Cardiovascular: regular rate rhythm, S1/S2 Respiratory: aerating well, clear bilaterally Abdomen: bowel sounds present, non-distended, so ft Skin: intact, no rash, incisions C/D/I Musculoskeletal - general: Musculoskeletal - general: joints normal, isabell l muscle mass Neuro/CERTIFIED NURSES AIDE: CNII-XII intact Results Findings/Data: Laboratory Tests: 06/13 06/13 06/13 06/13 06/13 1548 1115 0737 0649 0622 Chemistry Sodium (134 - 147 mEq/L) 136 Potassium (3.4 - 5.0 mEq/L) 3.6 Chloride (100 - 108 mEq/L) 108 Carbon Dioxide (21 - 33 mEq/l) 26 Anion Gap (0 - 20) 6 BUN (7 - 18 mg/dL) 12 Creatinine (0.6 - 1.3 mg/dL) 1.0 Glomerular Filtr Rate (70 - 80) 74.7 Glucose (70 - 110 mg/dL) 100 POC Glucose (70 - 110 MG/DL) 177 H 143 H 103 11 5 H Calcium (8.0 - 10.5 mg/dL) 8.0 Magnesium (1.80 - 2.40 mg/dL) 2.00 Hematology WBC (4.5 - 11.0 x10 3/uL) 10.4 RBC (4.00 - 5.60 x10 6/uL) 2.64 L Hgb (12.5 - 16.9 g/dL) 7.8 L Hct (37.5 - 50.7 %) 25.1 L MCV (81.0 - 99.0 fL) 95.1 MCH (27.0 - 33.0 pg) 29.5 MCHC (33.0 - 37.0 g/dL) 31.1 L RDW (11.5 - 14.5 %) 16.4 H Plt Count (150 - 400 x10 3/uL) 299 MPV (7.0 - 9.0 fL) 9.7 H Neut % (Auto) (56.0 - 77.0 %) 74.1 Lymph % (Auto) (14.0 - 32.0 %) 15.3 [place] % (Auto) (4.8 - 9.0 %) 6.9 Eos % (Auto) (0.3 - 3.7 %) 2.5 Baso % (Auto) (0.0 - 2.0 %) 0.5 Neut # (Auto) (2.0 - 7.6 x10 3/uL) 7.74 H Lymph # (Auto) (1.0 - 3.8 x10 3/uL) 1.60 [place] # (Auto) (0.1 - 0.8 x10 3/uL) 0.72 Eos # (Auto) (0.0 - 0.2 x10 3/uL) 0.26 H Baso # (Auto) (0.0 - 0.2 x10 3/uL) 0.05 Abs Immat Gran (auto) (0.00 - 0.03 0.07 H x10 3/uL) Add Manual Diff NO Immature Gran % (0.0 - 2.0 %) 0.7 Nucleated RBC % (0 - 0 %) 0.0 Nucleated RBCs # (Man) (0.0 - 0.1 0.00 x10 3/uL) 06/12 1955 Chemistry POC Glucose (70 - 110 MG/DL) 185 H Diagnosis, Assessment Plan Free Text A P: Severe mitral regurgitation Status post mitral valve replacement Impaired ADLs, mobility, gait Generalized weakness Postoperative anemia Postoperative pain Symptomatic bradycardia/sick sinus sydrome Atrial fibrillation s/p PVI and ALAA Plan: Continue PT/OT Out of bed to chair Work on strength, bed mobility, transfers, gait Sternal precautions Increase endurance Fall precautions Monitor p.o. intake and nutrition Strict decubitus precautions Continue current medications Monitor labs closely Advance therapies as tolerated BLE venous doppler negative for DVT -Amniodarone decreased -EP following -note states pt ok to discharge -Avoid AV rubi blocking agent -c/w tele Pt has had a slight decline in his functional mo bility with transfers and endurance yesterday. Discussed about discharging home with /PT, but daughters are saying they can not be their to assist him. Pt's can not assist him. Discussed with c/w perusing with SNF or If pt im proves today and feels comfortable can discharge home with /PT. I did i nform family and pt I would really prefer pt to have fam ryan support for a few days in the home setting if pt discharges home. Update on therapies: 06/12 Transfer -transfers Gait 250ft spv RW 06/11 Bed mobility modified independent 350ft SPV RW short steps/decreased mason Some shortness of breath with activity Reviewed chart, meds, labs, notes, and therapy Performed physical exam Consultants: anesthesiology, cardiology, cardiov ascular surgery, critical/ paper testing supervisor, hospitalist Rehab attestation: Face to face exam completed. Treatment plan disc ussed with patient at 1801 RPT #:[id number] END OF REPORT 2023-06-13 17:00:00-00:00 [id number] [place] [address] PATIENT NAME: ODIN ZENG ADMIT DATE: 06/03/23 ACCOUNT NO: [id number] ROOM NO: [facility] AGE: 83 REPORT TYPE: eECHOCARDIOGRAM REPORT SEX: M ADMITTING PHYSICIAN:Abiodun Sanchez MD ATTENDING PHYSICIAN:Abiodun Sanchez MD *[address] [place] [address] Transthoracic Echocardiogram Patient: Odin Zeng Study Date: 06/13/2023 BP: Location: [facility] URN: [id number] : 1940 Age: 83 Height: 68 in / 172.7 cm Gender: M Weight: 185 lb / 84.1 kg BMI/BSA: 28.2 kg/m 2 / 2.03 m 2 *Ordering Physician: * Shane Willoughby *Interpreting Physician: * Ena Rai MD *Ecommerce Marketing Specialist: Briseida Forte [facility] Indications: SURGERY. Study data: Transthoracic echocardiogram. Comple te 2D, complete spectral Doppler, and color Doppler. Location: [facility]. Patient room number: 3341. Findings Left ventricle: The cavity size is normal. Wall thickness is normal. Systolic function is normal. The estimated eject ion fraction is 50-54%. Wall motion is normal; there are no regional wal l motion abnormalities. Doppler parameters are consistent with restricti ve physiology, indicative of decreased left ventricular diastol ic compliance and/or increased left atrial pressure. Right ventricle: The cavity size is normal. Syst olic function is normal. PATIENT NAME: ODIN ZENG 1 Left atrium: The atrium is normal in size. Right atrium: The atrium is normal in size. Aorta: Aortic root: The aortic root is normal in size. Aortic valve: The valve is structurally normal. The valve is trileaflet. There is no evidence of stenosis. Th ere is no regurgitation. Mitral valve: There is a bioprosthesis. There is no evidence of stenosis. There is no regurgitation. Tricuspid valve: The valve is structurally isabell l. There is mild regurgitation. Pulmonic valve: The valve is structurally normal . There is no regurgitation. Pericardium: There is no pericardial effusion. Pulmonary arteries: The main pulmonary artery is normal-sized. Systemic veins: Inferior vena cava: The vessel is normal in size . Measurements Left ventricle Value 06/09/2023 Ref ETHEL, LAX 4.3 cm 4.4 4.2 - 5.8 ESD, LAX 3.1 cm 3.1 2.5 - 4.0 ESD/bsa, 1.5 cm/m 2 1.6 1.3 LAX - 2.1 FS, LAX 27 % 30 25 - 43 ESD/bsa 3.2 cm/m 2 2.8 ---- major ax, A4C ETHEL/bsa 3.2 cm/m 2 2.8 ---- minor ax, A4C ETHEL major 7.6 cm 6.2 ---- ax, A2C ETHEL/bsa 3.8 cm/m 2 3.2 ---- major ax, A2C PW, ED 1.2 cm 1.0 0.6 - 1.0 IVS/PW, ED 0.94 1.02 ---- EF 53 % 57 52 - 72 E', lat 8.2 cm/sec 7.5 >=10 antwon, TDI .0 E/e', lat 18 19 ---- antwon, TDI PATIENT NAME: ODIN ZENG 1 E', med 6.3 cm/sec 3.9 >=7. antwon, TDI 0 E/e', med 23 36 ---- antwon, TDI E', avg, 7.2 cm/sec 5.7 ---- TDI E/e', avg, 20 24 <=14 TDI LVOT Value 06/09/2023 Ref Diam, S 1.97 cm 1.98 ---- Area 3.1 cm 2 3.1 ---- Peak alexander, S 1.32 m/sec 1.14 ---- Mean alexander, S 0.85 m/sec 0.77 ---- VTI, S 26.3 cm 20.8 ---- Peak grad, 7 mm Hg 5 ---- S Mean grad, 4 mm Hg 3 ---- S SV 80 ml 64 ---- Qs 5.52 L/min 3.69 ---- Qs/bsa 2.7 L/(min-m 2) 1.9 ---- SV/bsa 40 ml/m 2 32 ---- Ventricular septum Value 06/09/2023 Ref IVS, ED 1.2 cm 1.0 0.6 - 1.0 Right ventricle Value 06/09/2023 Ref ETHEL, LAX 2.3 cm ---- Pressure, S 33 mm Hg 32 ---- Left atrium Value 06/09/2023 Ref AP dim, ES 3.90 cm 4.08 3.00 - 4.00 Vol/bsa, 27 ml/m 2 26 12 - ES, 1-p A4C 37 Vol, ES, 49 ml 65 ---- 2-p Vol/bsa, 24 ml/m 2 33 16 - ES, 2-p 34 Vol/bsa, 32 ml/m 2 29 16 - ES, A/L 34 AP dim, ES 4.3 cm 3.3 3.0 MM - 4.0 LA/Ao root 1.59 0.99 ---- ratio, MM Right atrium Value 06/09/2023 Ref Area, ES 19 cm 2 20 10 - 18 PATIENT NAME: ODIN ZENG 1 Aortic valve Value 06/09/2023 Ref Leaflet 1.91 cm 1.33 ---- sep, MM Peak v, S 1.48 m/sec 1.31 ---- Mean v, S 0.99 m/sec 0.85 ---- VTI, S 26.0 cm 25.5 ---- Mean grad, 4.5 mm Hg 3.4 ---- S Peak grad, 8.8 mm Hg 6.9 ---- S LVOT/AV, 1.01 0.81 ---- VTI ratio SILVESTRE, VTI 3.09 cm 2 2.50 ---- LVOT/AV, 0.89 0.87 ---- Vpeak ratio SILVESTRE, Vmax 2.72 cm 2 2.68 ---- Mitral valve Value 06/09/2023 Ref Peak E 0.07 m/sec 1.4 ---- Peak A 0.5 m/sec 0.55 ---- Mean v, D 0.84 m/sec ---- VTI leaflet 42.4 cm ---- coapt Decel time 264 ms 241 ---- PHT 60 ms 66 ---- Mean grad, 3.4 mm Hg ---- D Peak grad, 10.9 mm Hg 7.8 ---- D Peak E/A 2.9 2.53 ---- ratio MVA, PHT 3.7 cm 2 3.4 ---- Pulmonic valve Value 06/09/2023 Ref SD v, ED 0.69 m/sec 0.58 ---- Tricuspid valve Value 06/09/2023 Ref TR peak v 2.74 m/sec 2.67 <=2. 8 Peak RV-RA 30 mm Hg 29 ---- grad, S Aortic root Value 06/09/2023 Ref Root diam 3.7 cm <4.2 Root diam, 2.71 cm 3.35 ---- ED MM Ascending aorta Value 06/09/2023 Ref AAo AP 3.5 cm 3.1 ---- diam, S AAo AP 1.7 cm/m 2 1.6 ---- diam/bsa, S PATIENT NAME: ODIN ZENG 51 Pulmonary artery Value 06/09/2023 Ref Pressure, S 27.1 mm Hg 28.2 ---- Systemic veins Value 06/09/2023 Ref Estimated 3 mm Hg 3 ---- CVP Conclusions Summary: 1. Left ventricle: The cavity size is normal. Wa ll thickness is normal. Systolic function is normal. The estimated ejec tion fraction is 50-54%. Wall motion is normal; there are no reg ional wall motion abnormalities. Doppler parameters are consisten t with restrictive physiology, indicative of decreased left ventri cular diastolic compliance and/or increased left atrial pressur e. 2. Mitral valve: There is a bioprosthesis. 3. Pericardium, extracardiac: There is no perica rdial effusion. Prepared and electronically signed by Ena Rai MD 06/13/2023 17:00 Electronically Signed by Ena Rai MD on 0 06/13/23 at 1700 PATIENT NAME: ODIN ZENG 1 2023-06-13 10:02:00-00:00 [facility] Cardiothoracic Surgery Prog REPORT#:[id number] REPORT STATUS: Signed DATE:06/13/23 TIME: 1002 PATIENT: ODIN ZENG UNIT #: [id number] ROOM/BED: [place] [address] : 40 AGE: 83 SEX: M ATTEND: Ramo Sanchez MD ADM AUTHOR: Abiodun Sanchez MD * ALL edits or amendments must be made on the [employer]/computer document * See Addendum Subjective HPI: Hemodynamically stable no new issues overnight Good pain control Objective General VS/I O Last Documented: Result Date Time Pulse Ox 100 06/13 647 B/P 114/81 06/13 647 B/P Mean 0.0 06/13 647 Temp 37.0 06/13 0647 Pulse 66 06/13 0647 Resp 16 06/13 0647 O2 Delivery Room air 06/13 0405 O2 Flow Rate 0 06/10 1201 FiO2 21 06/10 0410 24 hour I O ending at 0700: 06/13 0700 06/12 1900 Intake Total 300 700 Output Total 600 900 Balance -300 -200 Intake, Oral 300 700 Number 1 Bowel Movements Output, Urine 600 900 PATIENT WEIGHT: Weight (lb): 185 Weight (oz): 10.07 Weight (kg): 84.200 Physical Exam General appearance: alert, awake, oriented Wound/incision: Location: Sternum clean and dry HEENT: mucosal membranes moist Neck: non-tender Cardiovascular: BP/pulses equal bilat. Respiratory: decreased breath sounds Abdomen: soft, non-tender Extremities: dry, moves all Musculoskeletal: full range of motion Neuro/CERTIFIED NURSES AIDE: alert, oriented X 3 Skin: dry Psychiatry: normal affect, normal mood Results Findings/Data: Laboratory Tests 06/13 06/13 06/13 06/12 06/12 0737 0649 0622 1955 1534 Chemistry Sodium (134 - 147 mEq/L) 136 Potassium (3.4 - 5.0 mEq/L) 3.6 Chloride (100 - 108 mEq/L) 108 Carbon Dioxide (21 - 33 mEq/l) 26 Anion Gap (0 - 20) 6 BUN (7 - 18 mg/dL) 12 Creatinine (0.6 - 1.3 mg/dL) 1.0 Glomerular Filtr Rate (70 - 80) 74.7 Glucose (70 - 110 mg/dL) 100 POC Glucose (70 - 110 MG/DL) 103 115 H 185 H 15 6 H Calcium (8.0 - 10.5 mg/dL) 8.0 06/12 1156 Chemistry POC Glucose (70 - 110 MG/DL) 133 H Laboratory Tests 06/13 0737 Hematology WBC (4.5 - 11.0 x10 3/uL) 10.4 RBC (4.00 - 5.60 x10 6/uL) 2.64 L Hgb (12.5 - 16.9 g/dL) 7.8 L Hct (37.5 - 50.7 %) 25.1 L MCV (81.0 - 99.0 fL) 95.1 MCH (27.0 - 33.0 pg) 29.5 MCHC (33.0 - 37.0 g/dL) 31.1 L RDW (11.5 - 14.5 %) 16.4 H Plt Count (150 - 400 x10 3/uL) 299 MPV (7.0 - 9.0 fL) 9.7 H Neut % (Auto) (56.0 - 77.0 %) 74.1 Lymph % (Auto) (14.0 - 32.0 %) 15.3 [place] % (Auto) (4.8 - 9.0 %) 6.9 Eos % (Auto) (0.3 - 3.7 %) 2.5 Baso % (Auto) (0.0 - 2.0 %) 0.5 Neut # (Auto) (2.0 - 7.6 x10 3/uL) 7.74 H Lymph # (Auto) (1.0 - 3.8 x10 3/uL) 1.60 [place] # (Auto) (0.1 - 0.8 x10 3/uL) 0.72 Eos # (Auto) (0.0 - 0.2 x10 3/uL) 0.26 H Baso # (Auto) (0.0 - 0.2 x10 3/uL) 0.05 Abs Immat Gran (auto) (0.00 - 0.03 x10 3/uL) 0. 07 H Add Manual Diff NO Immature Gran % (0.0 - 2.0 %) 0.7 Nucleated RBC % (0 - 0 %) 0.0 Nucleated RBCs # (Man) (0.0 - 0.1 x10 3/uL) 0. 00 Diagnosis, Assessment Plan Hospital course to date: DC pacing wire Repeat echocardiogram in 2 hours DC home later on today Return to clinic next week at 1004 Addendum 1: 06/13/23 1729 by Frank Sanchez MD Duplex of the lower extremity showed DVT , patient will be started on Eliquis 5 mg p.o. twice daily will discontinue Plavix. at 1733 RPT #:[id number] END OF REPORT 2023-06-13 09:54:00-00:00 [facility] ([facility]) Discharge Summary REPORT#:[id number] REPORT STATUS: Signed DATE:06/13/23 TIME: 953 PATIENT: ODIN ZENG UNIT #: [id number] [address] AGE: 83 SEX: M ATTEND: Ramo Sanchez MD ADM AUTHOR: Shane Willoughby NP * ALL edits or amendments must be made on the el [employer]/computer document * PCP PCP PCP: PCP: Mitesh Muhammad MD Discharge to: home with home health [facility] General Information Date of admission: Observation Start Date: Date of admission: 06/03/23 Discharge date: 06/13/23 Discharge diagnosis: - Mitral regurgitation/Paroxysmal atrial fibrill s/p Mitral valve replacement and Pulmonary vein isolation, Isolation of left atrial appendage. - CP and SOB due to MR. - HX of atrial fibrillation, status post failed ablation in the past, on Eliquis therapy, diabetes, hypothyroid. Hospital course: 83-year-old gentleman with a past medical history of atrial fibrillation, status post failed ablation in the past, on Eliquis therapy, diabetes, hypothyroid, who was found to have significant mitral valve regur gitation with a flail mitral valve leaflet. He had a Mitral valve rep lacement, pulmonary vein isolation and Isolation of left atrial nathan endage. He was in [facility]. He is doing better. He will go home with after ECHO. He will continue Eliqui s, ASA, BB, Lipitor. Consultants: anesthesiology, cardiology, cardiov ascular surgery, critical/ paper testing supervisor, hospitalist Med Rec Med Rec Discharge meds: Continue taking these medications: POTASSIUM CHLORIDE ER (MICRO-K) 8 MEQ CAP.ER 8 MILLIEQUIVALENT ORAL DAILY. METOPROLOL TARTRATE (LOPRESSOR) 50 MG TAB 50 MILLIGRAM ORAL TWICE DAILY. APIXABAN (ELIQUIS) 5 MG TAB 5 MILLIGRAM ORAL DAILY. FUROSEMIDE (LASIX) 40 MG TAB 40 MILLIGRAM ORAL DAILY. LEVOTHYROXINE (SYNTHROID) 75 MCG TAB 75 MICROGRAM ORAL DAILY. metFORMIN (GLUCOPHAGE) 500 MG TAB 500 MILLIGRAM ORAL DAILY. TAMSULOSIN ER (FLOMAX) 0.4 MG CAP.SR.24H 0.4 MILLIGRAM ORAL DAILY. Start taking the following new medications: FERROUS SULFATE (FEOSOL) 325 MG (65 MG IRON) TAB 325 MILLIGRAM ORAL DAILY. Qty = 30 No Refills AMIODARONE (PACERONE) 200 MG TAB 200 MILLIGRAM ORAL TWICE DAILY. Qty = 60 No Refills ATORVASTATIN (LIPITOR) 40 MG TAB 40 MILLIGRAM ORAL 2100 Qty = 30 No Refills DOCUSATE SODIUM (COLACE) 100 MG CAP 100 MILLIGRAM ORAL TWICE DAILY. Qty = 60 No Refills SENNA (SENOKOT) 8.6 MG TAB 17.2 MILLIGRAM ORAL BEDTIME. Qty = 30 No Refills amLODIPine (NORVASC) 5 MG TAB 5 MILLIGRAM ORAL DAILY. Qty = 30 No Refills Objective VS/I O Last Documented: Result Date Time Pulse Ox 100 06/13 647 B/P 114/81 06/13 647 B/P Mean 0.0 06/13 647 Temp 37.0 06/13 647 Pulse 66 06/13 0647 Resp 16 06/13 06 O2 Delivery Room air 06/13 0405 O2 Flow Rate 0 06/10 1201 FiO2 21 06/10 0410 24 hour I O ending at 0700: 06/13 0700 06/12 1900 Intake Total 300 700 Output Total 600 900 Balance -300 -200 Intake, Oral 300 700 Number 1 Bowel Movements Output, Urine 600 900 PATIENT WEIGHT: Weight (lb): 185 Weight (oz): 10.07 Weight (kg): 84.200 General appearance: alert, awake Head/Eyes: atraumatic, normocephalic, PERRLA Cardiovascular: normal capillary refill, regular rate rhythm, normal heart sounds Respiratory: clear to auscultation, no d istress, no tenderness, aerating well, symmetric expansion GI: non-tender, no guarding Extremities: moves all, normal range of motion, normal tone Musculoskeletal: full range of motion, no CVA te nderness Neuro/CERTIFIED NURSES AIDE: alert, oriented X 3 Results Findings/Data: Laboratory Tests: 06/13 06/13 06/13 06/12 06/12 0737 0649 0622 1955 1534 Chemistry Sodium (134 - 147 mEq/L) 136 Potassium (3.4 - 5.0 mEq/L) 3.6 Chloride (100 - 108 mEq/L) 108 Carbon Dioxide (21 - 33 mEq/l) 26 Anion Gap (0 - 20) 6 BUN (7 - 18 mg/dL) 12 Creatinine (0.6 - 1.3 mg/dL) 1.0 Glomerular Filtr Rate (70 - 80) 74.7 Glucose (70 - 110 mg/dL) 100 POC Glucose (70 - 110 MG/DL) 103 115 H 185 H 15 6 H Calcium (8.0 - 10.5 mg/dL) 8.0 Hematology WBC (4.5 - 11.0 x10 3/uL) 10.4 RBC (4.00 - 5.60 x10 6/uL) 2.64 L Hgb (12.5 - 16.9 g/dL) 7.8 L Hct (37.5 - 50.7 %) 25.1 L MCV (81.0 - 99.0 fL) 95.1 MCH (27.0 - 33.0 pg) 29.5 MCHC (33.0 - 37.0 g/dL) 31.1 L RDW (11.5 - 14.5 %) 16.4 H Plt Count (150 - 400 x10 3/uL) 299 MPV (7.0 - 9.0 fL) 9.7 H Neut % (Auto) (56.0 - 77.0 %) 74.1 Lymph % (Auto) (14.0 - 32.0 %) 15.3 [place] % (Auto) (4.8 - 9.0 %) 6.9 Eos % (Auto) (0.3 - 3.7 %) 2.5 Baso % (Auto) (0.0 - 2.0 %) 0.5 Neut # (Auto) (2.0 - 7.6 x10 3/uL) 7.74 H Lymph # (Auto) (1.0 - 3.8 x10 3/uL) 1.60 [place] # (Auto) (0.1 - 0.8 x10 3/uL) 0.72 Eos # (Auto) (0.0 - 0.2 x10 3/uL) 0.26 H Baso # (Auto) (0.0 - 0.2 x10 3/uL) 0.05 Abs Immat Gran (auto) (0.00 - 0.03 0.07 H x10 3/uL) Add Manual Diff NO Immature Gran % (0.0 - 2.0 %) 0.7 Nucleated RBC % (0 - 0 %) 0.0 Nucleated RBCs # (Man) (0.0 - 0.1 0.00 x10 3/uL) 06/12 1156 Chemistry POC Glucose (70 - 110 MG/DL) 133 H Discharge Instructions Discharge Instructions Additional Discharge Routines: PCP Follow-Up, Co nsultant Follow-Up )( Diet: Cardiac )( Activity: As Tolerated Electronically Signed by Shane Willoughby BACK HOE OPERATOR on at 0956 RPT #:[id number] END OF REPORT 2023-06-13 09:52:00-00:00 [facility] ([facility]) Cardiology Progress Note REPORT#:[id number] REPORT STATUS: Signed DATE:06/13/23 TIME: 951 PATIENT: ODIN ZENG UNIT #: [id number] ROOM/BED: [place] [address] : 40 AGE: 83 SEX: M ATTEND: Ramo Sanchez MD ADM AUTHOR: Kathe Bradshaw ACNP * ALL edits or amendments must be made on the [employer]/computer document * See Addendum Subjective Patient reports: No: complaints. Objective General VS/I O: 24 hour I O ending at 0700: 06/13 0700 06/12 1900 Intake Total 300 700 Output Total 600 900 Balance -300 -200 Intake, Oral 300 700 Number 1 Bowel Movements Output, Urine 600 900 Vital Signs: Date Time Temp Pulse Resp B/P B/P Pulse O2 O2 F low FiO2 Mean Ox Delivery Rate 06/13 0647 37.0 66 16 114/81 0.0 100 06/13 0500 65 80 06/13 0405 37.0 68 20 106/54 71.4 96 Room air 06/13 0400 67 27 100 06/13 0200 67 99 06/13 0000 69 99 06/12 2315 69 18 112/65 80.6 94 Room air 06/12 2300 68 100 06/12 2100 69 100 06/12 1951 36.3 68 18 137/63 0.0 100 06/12 1900 69 100 06/12 1710 72 36 137/63 91 96 06/12 1532 36.4 69 17 118/58 0.0 99 Room air 06/12 1531 36.4 69 17 118/58 0.0 99 Room air 06/12 1218 36.7 69 14 105/51 0.0 98 Room air PATIENT WEIGHT: Weight (lb): 185 Weight (oz): 10.07 Weight (kg): 84.200 Medications: Active Meds + DC'd Last 24 Hrs Furosemide (LASIX) 40 MG DAILY PO Sodium Chloride (SODIUM CHLORIDE) 10 ML ASDIR I V Amlodipine Besylate (NORVASC) 5 MG DAILY PO Tamsulosin HCl (Flomax 0.4 mg) 0.4 MG DAILY 1700 PO Amiodarone HCl (CORDARONE) 200 MG BID PO (DA) Insulin Glargine (Semglee) 10 UNIT BID SUBQ Ipratropium [place] (ATROVENT) 500 MCG RTQ2H PRN PRN INH Cyanocobalamin (Vitamin B-12 500 mcg tab) 500 MC G DAILY PO Ferrous Sulfate (FERROUS SULFATE) 325 MG DAILY P O Bisacodyl (DULCOLAX) 10 MG ONCE PRN RECTAL Magnesium Hydroxide (MILK OF MAGNESIA) 30 ML ONC E PRN PO Atorvastatin Calcium (LIPITOR) 40 MG 2100 PO Insulin Human Lispro (HUMALOG) 0 AC HS SUBQ Polyethylene Glycol (MIRALAX) 17 GM DAILY PO Levothyroxine Sodium (Synthroid) 75 MCG DAILY 06 00 PO Aspirin (ASPIRIN) 81 MG DAILY PO Docusate Sodium (COLACE) 100 MG BID PO Sennosides (Senna Lax 8.6 MG TABLET) 17.2 MG BED TIME PO Acetaminophen (TYLENOL) 650 MG Q4H PRN PRN PO Acetaminophen (TYLENOL) 650 MG Q4H PRN PRN RECTA L Dextrose/Water (DEXTROSE 10% IN WATER) 125 ML DIR PRN IV (CKD) Dextrose/Water (DEXTROSE 10% IN WATER) 250 ML DIR PRN IV (CKD) Glucagon (GLUCAGON) 1 MG ASDIR PRN IM Magnesium Sulfate (MAGNESIUM SULFATE 4GM/SWFI 10 0ML) 100 ML ASDIR PRN IV Magnesium Sulfate (MAGNESIUM SULFATE 2GM/SWFI 50 ML) 50 ML ASDIR PRN IV Magnesium Sulfate/Dextrose (MAGNESIUM SULFATE 1G M/D5W 100ML) 100 ML ASDIR PRN IV Ondansetron HCl (ZOFRAN) 4 MG Q6H PRN PRN IV Physical Exam General appearance: alert, awake, oriented Neck: non-tender, no JVD Cardiovascular: CV assessment: regular rate and rhythm, pedal p ulses present Respiratory: clear to auscultation, no distress Abdomen: non-tender, normal bowel sounds , no distention, no guarding, no mass/ organomegaly, no pulsatile mass, no rebound Genitourinary: no flank pain, no urinary cathete r Lower extremity: LE assessment: normal capillary refill, no mirna a Musculoskeletal: normal inspection Neuro/CERTIFIED NURSES AIDE: alert, oriented X 3, normal speech Skin: dry, intact Psychiatry: normal affect, normal judgment/insig ht, normal mood Results Findings/Data: Laboratory Tests 06/13 06/13 06/13 06/12 06/12 0737 0649 0622 1955 1534 Chemistry Sodium (134 - 147 mEq/L) 136 Potassium (3.4 - 5.0 mEq/L) 3.6 Chloride (100 - 108 mEq/L) 108 Carbon Dioxide (21 - 33 mEq/l) 26 Anion Gap (0 - 20) 6 BUN (7 - 18 mg/dL) 12 Creatinine (0.6 - 1.3 mg/dL) 1.0 Glomerular Filtr Rate (70 - 80) 74.7 Glucose (70 - 110 mg/dL) 100 POC Glucose (70 - 110 MG/DL) 103 115 H 185 H 15 6 H Calcium (8.0 - 10.5 mg/dL) 8.0 06/12 1156 Chemistry POC Glucose (70 - 110 MG/DL) 133 H Laboratory Tests 06/13 0737 Hematology WBC (4.5 - 11.0 x10 3/uL) 10.4 RBC (4.00 - 5.60 x10 6/uL) 2.64 L Hgb (12.5 - 16.9 g/dL) 7.8 L Hct (37.5 - 50.7 %) 25.1 L MCV (81.0 - 99.0 fL) 95.1 MCH (27.0 - 33.0 pg) 29.5 MCHC (33.0 - 37.0 g/dL) 31.1 L RDW (11.5 - 14.5 %) 16.4 H Plt Count (150 - 400 x10 3/uL) 299 MPV (7.0 - 9.0 fL) 9.7 H Neut % (Auto) (56.0 - 77.0 %) 74.1 Lymph % (Auto) (14.0 - 32.0 %) 15.3 [place] % (Auto) (4.8 - 9.0 %) 6.9 Eos % (Auto) (0.3 - 3.7 %) 2.5 Baso % (Auto) (0.0 - 2.0 %) 0.5 Neut # (Auto) (2.0 - 7.6 x10 3/uL) 7.74 H Lymph # (Auto) (1.0 - 3.8 x10 3/uL) 1.60 [place] # (Auto) (0.1 - 0.8 x10 3/uL) 0.72 Eos # (Auto) (0.0 - 0.2 x10 3/uL) 0.26 H Baso # (Auto) (0.0 - 0.2 x10 3/uL) 0.05 Abs Immat Gran (auto) (0.00 - 0.03 x10 3/uL) 0. 07 H Add Manual Diff NO Immature Gran % (0.0 - 2.0 %) 0.7 Nucleated RBC % (0 - 0 %) 0.0 Nucleated RBCs # (Man) (0.0 - 0.1 x10 3/uL) 0.0 0 Results: labs reviewed, vital signs reviewed, [facility] personally rev'd Telemetry Interpretation: Sinus rhythm with long first-degree AV block. Diagnosis, Assessment Plan Plan discussed with: patient, collaborating MD, consultants (EP), nurse Free Text DxA P Notes Free Text DxA P Notes: Cardiology consultation s/p mitral valve replace ment on this 83 YO gentleman with PMHx of paroxysmal atri al fibrillation, DM, hypothyrodism who was found to have severe mitral valve prolapse . 1. Severe mitral valve prolapse s/p Mitral Valve Replacement * doing well * post-op care per CTS * post-op bradycardia - which appear to be resol rg * tele sinus rhythm with eugene y long first degree AVB 0.30 seconds. Discussed with EP, will stop amiodarone 2. Atrial fibrillation s/p PVI and ALAA -current ly sinus rhythm with first- degree AV block * Stop amiodarone per EP recommendation * BB dc'd * no need for AC as patient had left atrial appe ndage removal. 3. Junctional Bradycardia/sick sinus syndrome -r esolved * EP following * tele sinus rhythm with long first degree AVB * Stop amiodarone, beta-raul 4. Hypertension * BP stable * continue amlodipine 5 mg daily Okay to [place] from cardiology. Outpatient follow-up with Dr. Zaidi in 1 week. Discharge medications amended - amiodarone and E liquis removed from discharge meds. MDM by Dr. Diggs. at 1518 Addendum 1: 06/13/23 1713 by Kathe BradshawP Patient has nonocclussive DVT right common femor al vein. Will send him on Eliquis 5mg BID. Continue ASA. Stop metoprolol. This is discussed with Dr. Sanchez. I have also spoken to patient's on the the phone regarding the DVT finding. Echo reviewed no pericardial effusion. Okay to [place] home. Outpatient follow-up with Dr. Zaidi. at 1716 RPT #:[id number] END OF REPORT 2023-06-13 09:22:00-00:00 [facility] ([facility] EP Progress Note REPORT#:[id number] REPORT STATUS: Signed DATE:06/13/23 TIME: 921 PATIENT: ODIN ZENG UNIT #: [id number] ROOM/BED: [place] [address] : 40 AGE: 83 SEX: M ATTEND: Ramo Sanchez MD ADM AUTHOR: Suzie Cooper BACK HOE OPERATOR * ALL edits or amendments must be made on the [employer]/computer document * Marita Cooper 06/13/23 0922: Subjective Chief complaint: Patient states he is feeling better OOB in chair Denies CP, palpitations, SOB Patient reports: No: complaints. Nursing reports: No: complaints. Objective General VS/I O Laboratory Tests 06/13/23 0737: [Embedded Image Not Available] Current Medications Sig/Stephanie Start time Last Medication Dose Route Stop Time Status Admin Apixaban 5 MG BID 06/13 2100 DCD PO 08/26 2059 Furosemide 40 MG DAILY 06/11 0900 DCD 06/13 PO 07/11 0859 0747 Sodium Chloride 10 ML ASDIR 06/10 0915 DCD IV 07/10 0914 Amlodipine Besylate 5 MG DAILY 06/09 1115 DCD 0 06/13 PO 07/09 1114 0746 Tamsulosin HCl 0.4 MG DAILY 1700 06/08 1700 DCD 06/13 PO 07/08 1659 1703 Amiodarone HCl 200 MG BID 06/06 2100 DC 06/12 PO 07/06 2059 0816 Insulin Glargine 10 UNIT BID 06/06 2100 DCD SUBQ 07/06 205 0745 Ipratropium [place] 500 MCG RTQ2H PRN PRN 06/06 1521 DCD 06/09 INH 07/06 1520 0358 Cyanocobalamin 500 MCG DAILY 06/06 0900 DCD PO 07/06 0859 0746 Ferrous Sulfate 325 MG DAILY 06/06 09 DCD PO 07/06 0859 0747 Bisacodyl 10 MG ONCE PRN 06/05 1200 DCD RECTAL 07/05 1159 Magnesium Hydroxide 30 ML ONCE PRN 06/05 1200 DCD PO Atorvastatin Calcium 40 MG 2100 06/04 2100 DCD 06/12 PO 07/04 Insulin Human Lispro 0 AC HS 06/04 1130 DCD SUBQ 07/04 1129 1702 Polyethylene Glycol 17 GM DAILY 06/04 09 DCD 06/13 PO 07/04 0859 0747 Levothyroxine Sodium 75 MCG DAILY 0600 06/04 06 16 DCD 06/13 PO 07/04 0615 0330 Aspirin 81 MG DAILY 06/03 2121 DCD 06/13 PO 07/03 2120 0746 Docusate Sodium 100 MG BID 06/03 2100 DCD 06/13 PO 07/03 2059 0746 Sennosides 17.2 MG BEDTIME 06/03 2100 DCD 06/04 PO 07/03 205 195 Acetaminophen 650 MG Q4H PRN PRN 06/03 1530 DCD 06/13 PO 07/03 1529 0329 Acetaminophen 650 MG Q4H PRN PRN 06/03 1530 DCD RECTAL 07/03 1529 Dextrose/Water 125 ML ASDIR PRN 06/03 1530 DCD IV 07/03 1529 Dextrose/Water 250 ML ASDIR PRN 06/03 1530 DCD IV 07/03 1529 Glucagon 1 MG ASDIR PRN 06/03 1530 DCD IM 07/03 1529 Magnesium Sulfate 100 ML ASDIR PRN 06/03 1530 D CD IV 07/03 1529 Magnesium Sulfate 50 ML ASDIR PRN 06/03 1530 DC D IV 07/03 1529 Magnesium Sulfate/ 100 ML ASDIR PRN 06/03 1530 DCD 06/10 Dextrose IV 07/03 1529 1210 Ondansetron HCl 4 MG Q6H PRN PRN 06/03 1530 DCD IV 07/03 1529 Last Documented: Result Date Time Pulse Ox 100 06/13 1549 B/P 134/60 06/13 1549 B/P Mean 0.0 06/13 1549 Temp 36.6 06/13 1549 Pulse 71 06/13 1549 Resp 18 06/13 1549 O2 Delivery Room air 06/13 0405 O2 Flow Rate 0 06/10 1201 FiO2 21 06/10 0410 24 hour I O ending at 0700: 06/13 0700 06/12 1900 Intake Total 300 700 Output Total 600 900 Balance -300 -200 Intake, Oral 300 700 Number 1 Bowel Movements Output, Urine 600 900 PATIENT WEIGHT: Weight (lb): 185 Weight (oz): 10.07 Weight (kg): 84.200 Physical Exam General appearance: alert, awake, oriented, no a cute distress, no respiratory distress HEENT: mucosal membranes moist Neck: full range of motion, non-tender Cardiovascular: CV assessment: regular rate and rhythm, pedal p ulses present Respiratory: decreased breath sounds, no distres s Abdomen: soft, normal bowel sounds Genitourinary: no flank pain Extremities: edema, dry, moves all Musculoskeletal: normal inspection Neuro/CERTIFIED NURSES AIDE: alert, oriented X 3, normal speech Skin: dry, intact Psychiatry: normal affect EKG Interpretation: normal sinus rhythm, 1st deg ree AV block Treatment Prophylaxis Treatment Prophylaxis Oxygen: room air Diagnosis, Assessment Plan Free Text A P: Assessment: 1. Symptomatic bradycardia/sick sinus syndrome - EKG showed accelerated junctional rhythm rate 70 - BP stable - Discontinue BB and amiodarone - On tele, NSR 60-70s with first degree AVB 0.31 seconds, will hold amiodarone - Patient awake, alert, OOB in chair - Denies CP, SOB, palpitations 2. Junctional rhythm 3. Severe mitral valve prola pse s/p Mitral Valve Replacement, PVI, Isolation FLEX 06/03/2023 4. Atrial fibrillation s/p PVI and ALAA 5. CAD, non-obstructive Plan/recommendations: - Continuous tele monitoring - AVOID AV rubi blocking agents - DC amiodarone, BB - Post-op care per [facility] team - Maintaining NSR, no indication for PPM at this time - Will follow closely and monitor heart rate/rhy thm - PO lasix started per CVS - Nonocclussive DVT right common femoral vein, E liquis 5mg BID. Continue ASA. Echo reviewed no pericardial effusion, LVEF 50-5 4% - Outpatient follow-up with Dr. Zaidi. - Ok to discharge from EP standpoint, no BB, ami odarone due to bradycardia - Will follow and adjust therapies as clinical c ourse dictates Consultants: anesthesiology, cardiology, cardiov ascular surgery, critical/ paper testing supervisor, hospitalist Code status: full code Plan discussed with: patient Arnie Payne 06/14/23 1259: Attestations Attestation needed: supervising physician Physician Attestation Agree w/findings plan: Patient seen and examined on 06/13/2023. I agree with the findings and plan as documented by Suzie Cooper NP. at 1858 at 1259 RPT #:[id number] END OF REPORT 2023-06-13 09:06:00-00:00 [facility] RE[facility]#:[id number] REPORT STATUS: Signed DATE:06/13/23 TIME: 905 PATIENT: ODIN ZENG UNIT #: [id number] ROOM/BED: 3[address] : 40 AGE: 83 SEX: M ATTEND: Ramo Sanchez MD ADM AUTHOR: Abiodun Sanchez MD * ALL edits or amendments must be made on the [employer] document * Subjective HPI: Doing well Good pain control Objective Physical Exam General appearance: alert, awake, oriented Wound/incision: Location: Sternum clean and dry HEENT: mucosal membranes moist Neck: non-tender Cardiovascular: BP/pulses equal bilat. Respiratory: decreased breath sounds Abdomen: soft, non-tender Extremities: dry, moves all Musculoskeletal: full range of motion Neuro/CERTIFIED NURSES AIDE: alert, oriented X 3 Skin: dry Psychiatry: normal affect, normal mood Results Findings/Data: Laboratory Tests 06/13 06/13 06/12 06/12 06/12 0649 0622 1955 1534 1156 Chemistry POC Glucose (70 - 110 MG/DL) 103 115 H 185 H 15 6 H 133 H Laboratory Tests 06/13 0737 Hematology WBC (4.5 - 11.0 x10 3/uL) 10.4 RBC (4.00 - 5.60 x10 6/uL) 2.64 L Hgb (12.5 - 16.9 g/dL) 7.8 L Hct (37.5 - 50.7 %) 25.1 L MCV (81.0 - 99.0 fL) 95.1 MCH (27.0 - 33.0 pg) 29.5 MCHC (33.0 - 37.0 g/dL) 31.1 L RDW (11.5 - 14.5 %) 16.4 H Plt Count (150 - 400 x10 3/uL) 299 MPV (7.0 - 9.0 fL) 9.7 H Neut % (Auto) (56.0 - 77.0 %) 74.1 Lymph % (Auto) (14.0 - 32.0 %) 15.3 [place] % (Auto) (4.8 - 9.0 %) 6.9 Eos % (Auto) (0.3 - 3.7 %) 2.5 Baso % (Auto) (0.0 - 2.0 %) 0.5 Neut # (Auto) (2.0 - 7.6 x10 3/uL) 7.74 H Lymph # (Auto) (1.0 - 3.8 x10 3/uL) 1.60 [place] # (Auto) (0.1 - 0.8 x10 3/uL) 0.72 Eos # (Auto) (0.0 - 0.2 x10 3/uL) 0.26 H Baso # (Auto) (0.0 - 0.2 x10 3/uL) 0.05 Abs Immat Gran (auto) (0.00 - 0.03 x10 3/uL) 0. 07 H Add Manual Diff NO Immature Gran % (0.0 - 2.0 %) 0.7 Nucleated RBC % (0 - 0 %) 0.0 Nucleated RBCs # (Man) (0.0 - 0.1 x10 3/uL) 0.0 0 Diagnosis, Assessment Plan Hospital course to date: Ambulate Encourage incentive spirometry Discharge planning Probably home next 24 to 48 hours at 1731 RPT #:[id number] END OF REPORT 2023-06-12 10:54:00-00:00 [facility] Progress Note REPORT#:[id number] REPORT STATUS: Signed DATE:06/12/23 TIME: 1054 PATIENT: ODIN ZENG UNIT #: [id number] ROOM/BED: [place] [address] : 40 AGE: 83 SEX: M ATTEND: Ramo Sanchez MD ADM AUTHOR: Nguyen Andrew NP * ALL edits or amendments must be made on the [employer]/computer document * Subjective Chief complaint: PMR follow-up NAD OOB in chair + generalized weakness feels good today -slept very well last night Denies ALBERTO/N/V/D/CP 14 systems reviewed and neg. except that above. Objective General VS: Vital Signs: Date Time Temp Pulse Resp B/P B/P Pulse O2 O2 F low FiO2 Mean Ox Delivery Rate 06/12 0657 97.5 76 16 137/62 0.0 98 Room air 06/12 0312 97.3 69 14 137/65 0.0 95 Room air 06/11 2329 98.2 51 14 108/56 0.0 99 Room air 06/11 1918 97 Room air 06/11 1900 66 69 99 06/11 1824 97.9 75 14 121/60 0.0 97 Room air 06/11 1812 71 141/60 92 98 06/11 1736 77 97 06/11 1542 97.9 64 20 113/63 79.5 96 Room air 06/11 1500 64 98 06/11 1400 73 98 06/11 1328 67 115/56 80 06/11 1300 65 100 06/11 1200 68 99 06/11 1150 98.1 67 18 119/52 74.2 95 Nasal cannula 06/11 1100 55 98 PATIENT WEIGHT: Weight (lb): 185 Weight (oz): 10.07 Weight (kg): 84.200 Medications: Active Meds + DC'd Last 24 Hrs Furosemide (LASIX) 40 MG DAILY PO Sodium Chloride (SODIUM CHLORIDE) 10 ML ASDIR IV Amlodipine Besylate (NORVASC) 5 MG DAILY PO Tamsulosin HCl (Flomax 0.4 mg) 0.4 MG DAILY 1700 PO Amiodarone HCl (CORDARONE) 200 MG BID PO Insulin Glargine (Semglee) 10 UNIT BID SUBQ Ipratropium [place] (ATROVENT) 500 MCG RTQ2H PRN PRN INH Cyanocobalamin (Vitamin B-12 500 mcg tab) 500 MC G DAILY PO Ferrous Sulfate (FERROUS SULFATE) 325 MG DAILY P O Bisacodyl (DULCOLAX) 10 MG ONCE PRN RECTAL Magnesium Hydroxide (MILK OF MAGNESIA) 30 ML ONC E PRN PO Atorvastatin Calcium (LIPITOR) 40 MG 2100 PO Insulin Human Lispro (HUMALOG) 0 AC HS SUBQ Polyethylene Glycol (MIRALAX) 17 GM DAILY PO Tamsulosin HCl (Flomax 0.4 mg) 0.4 MG PC BK PO ( DC) Levothyroxine Sodium (Synthroid) 75 MCG DAILY 06 00 PO Aspirin (ASPIRIN) 81 MG DAILY PO Docusate Sodium (COLACE) 100 MG BID PO Sennosides (Senna Lax 8.6 MG TABLET) 17.2 MG BED TIME PO Acetaminophen (TYLENOL) 650 MG Q4H PRN PRN PO Acetaminophen (TYLENOL) 650 MG Q4H PRN PRN RECTA L Dextrose/Water (DEXTROSE 10% IN WATER) 125 ML A SDIR PRN IV (CKD) Dextrose/Water (DEXTROSE 10% IN WATER) 250 ML DIR PRN IV (CKD) Glucagon (GLUCAGON) 1 MG ASDIR PRN IM Magnesium Sulfate (MAGNESIUM SULFATE 4GM/SWFI 10 0ML) 100 ML ASDIR PRN IV Magnesium Sulfate (MAGNESIUM SULFATE 2GM/SWFI 50 ML) 50 ML ASDIR PRN IV Magnesium Sulfate/Dextrose (MAGNESIUM SULFATE 1G M/D5W 100ML) 100 ML ASDIR PRN IV Ondansetron HCl (ZOFRAN) 4 MG Q6H PRN PRN IV Physical Exam General appearance: alert, awake Psych: alert, oriented x 3 HEENT: anicteric, sclera clear Neck: supple, no JVD Cardiovascular: regular rate rhythm, S1/S2 Respiratory: aerating well, clear bilaterally Abdomen: bowel sounds present, non-distended, so ft Skin: intact, no rash, incisions C/D/I Musculoskeletal - general: Musculoskeletal - general: joints normal, isabell l muscle mass Neuro/CERTIFIED NURSES AIDE: CNII-XII intact Results Findings/Data: Laboratory Tests: 06/12 06/12 06/11 06/11 06/11 0659 0320 2005 1537 1146 Chemistry Sodium (134 - 147 mEq/L) 134 Potassium (3.4 - 5.0 mEq/L) 3.8 Chloride (100 - 108 mEq/L) 106 Carbon Dioxide (21 - 33 mEq/l) 22 Anion Gap (0 - 20) 9 BUN (7 - 18 mg/dL) 11 Creatinine (0.6 - 1.3 mg/dL) 1.0 Glomerular Filtr Rate (70 - 80) 74.7 Glucose (70 - 110 mg/dL) 114 H POC Glucose (70 - 110 MG/DL) 128 H 212 H 112 H 198 H Calcium (8.0 - 10.5 mg/dL) 8.1 Hematology WBC (4.5 - 11.0 x10 3/uL) 8.8 RBC (4.00 - 5.60 x10 6/uL) 2.86 L Hgb (12.5 - 16.9 g/dL) 8.8 L Hct (37.5 - 50.7 %) 27.8 L MCV (81.0 - 99.0 fL) 97.2 MCH (27.0 - 33.0 pg) 30.8 MCHC (33.0 - 37.0 g/dL) 31.7 L RDW (11.5 - 14.5 %) 16.1 H Plt Count (150 - 400 x10 3/uL) 278 MPV (7.0 - 9.0 fL) 10.1 H Neut % (Auto) (56.0 - 77.0 %) 68.2 Lymph % (Auto) (14.0 - 32.0 %) 18.3 [place] % (Auto) (4.8 - 9.0 %) 8.8 Eos % (Auto) (0.3 - 3.7 %) 3.1 Baso % (Auto) (0.0 - 2.0 %) 0.5 Neut # (Auto) (2.0 - 7.6 x10 3/uL) 6.02 Lymph # (Auto) (1.0 - 3.8 x10 3/uL) 1.62 [place] # (Auto) (0.1 - 0.8 x10 3/uL) 0.78 Eos # (Auto) (0.0 - 0.2 x10 3/uL) 0.27 H Baso # (Auto) (0.0 - 0.2 x10 3/uL) 0.04 Abs Immat Gran (auto) (0.00 - 0.03 0.10 H x10 3/uL) Add Manual Diff NO Immature Gran % (0.0 - 2.0 %) 1.1 Nucleated RBC % (0 - 0 %) 0.2 H Nucleated RBCs # (Man) (0.0 - 0.1 0.02 x10 3/uL) Diagnosis, Assessment Plan Free Text A P: Severe mitral regurgitation Status post mitral valve replacement Impaired ADLs, mobility, gait Generalized weakness Postoperative anemia Postoperative pain Symptomatic bradycardia/sick sinus sydrome Atrial fibrillation s/p PVI and ALAA Plan: Continue PT/OT Out of bed to chair Work on strength, bed mobility, transfers, gait Sternal precautions Increase endurance Fall precautions Monitor p.o. intake and nutrition Strict decubitus precautions Continue current medications Monitor labs closely Advance therapies as tolerated BLE venous dopplers negative for DVT -Amniodarone decreased -EP following -note states pt ok to dischaarge -Avoid AV rubi blocking agent -c/w tele Update on therapies: Bed mobility modified independent 350ft SPV RW short steps/decreased mason Some shortness of breath with activity Patient states that his will not be able to help him in any way when he gets home. 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 Daughter's at bedside still wish for him to go to SNF setting to assit with him b eing Independent with all Mobiltiy and ADLs. They state they can not offer any assistance at home. Reviewed chart, meds, labs, notes, and therapy Performed physical exam Consultants: anesthesiology, cardiology, cardiov ascular surgery, critical/ paper testing supervisor, hospitalist Rehab attestation: Face to face exam completed. Treatment plan disc ussed with patient. at 1057 RPT #:[id number] END OF REPORT 2023-06-12 09:09:00-00:00 [facility] ([facility]) Cardiology Progress Note REPORT#:[id number] REPORT STATUS: Signed DATE:06/12/23 TIME: 908 PATIENT: ODIN ZENG UNIT #: [id number] ROOM/BED: [address] : 40 AGE: 83 SEX: M ATTEND: Ramo Sanchez MD ADM AUTHOR: Kathe Bradshaw GIFT WRAPPER * ALL edits or amendments must be made on the [employer]/computer document * Subjective Patient reports: No: complaints. Objective General VS/I O: 24 hour I O ending at 0700: 06/12 0700 06/11 1900 Intake Total 600 Output Total 175 500 Balance -175 100 Intake, Oral 600 Number 1 Bowel Movements Output, Urine 175 500 Patient 84.2 kg Weight Weight Standing scale Measurement Method Vital Signs: Date Time Temp Pulse Resp B/P B/P Pulse O2 O2 Flow FiO2 Mean Ox Delivery Rate 06/12 0657 36.4 76 16 137/62 0.0 98 Room air 06/12 0312 36.3 69 14 137/65 0.0 95 Room air 06/11 2329 36.8 51 14 108/56 0.0 99 Room air 06/11 1918 97 Room air 06/11 1900 66 69 99 06/11 1824 36.6 75 14 121/60 0.0 97 Room air 06/11 1812 71 141/60 92 98 06/11 1736 77 97 06/11 1542 36.6 64 20 113/63 79.5 96 Room air 06/11 1500 64 98 06/11 1400 73 98 06/11 1328 67 115/56 80 06/11 1300 65 100 06/11 1200 68 99 06/11 1150 36.7 67 18 119/52 74.2 95 Nasal cannula 06/11 1100 55 98 06/11 1000 69 96 06/11 0933 70 109/53 77 96 PATIENT WEIGHT: Weight (lb): 185 Weight (oz): 10.07 Weight (kg): 84.200 Medications: Active Meds + DC'd Last 24 Hrs Furosemide (LASIX) 40 MG DAILY PO Sodium Chloride (SODIUM CHLORIDE) 10 ML ASDIR IV Amlodipine Besylate (NORVASC) 5 MG DAILY PO Tamsulosin HCl (Flomax 0.4 mg) 0.4 MG DAILY 1700 PO Amiodarone HCl (CORDARONE) 200 MG BID PO Insulin Glargine (Semglee) 10 UNIT BID SUBQ Ipratropium [place] (ATROVENT) 500 MCG RTQ2H PRN PRN INH Cyanocobalamin (Vitamin B-12 500 mcg tab) 500 MC G DAILY PO Ferrous Sulfate (FERROUS SULFATE) 325 MG DAILY P O Bisacodyl (DULCOLAX) 10 MG ONCE PRN RECTAL Magnesium Hydroxide (MILK OF MAGNESIA) 30 ML ONC E PRN PO Atorvastatin Calcium (LIPITOR) 40 MG 2100 PO Insulin Human Lispro (HUMALOG) 0 AC HS SUBQ Polyethylene Glycol (MIRALAX) 17 GM DAILY PO Tamsulosin HCl (Flomax 0.4 mg) 0.4 MG PC BK PO ( DC) Levothyroxine Sodium (Synthroid) 75 MCG DAILY 0 600 PO Aspirin (ASPIRIN) 81 MG DAILY PO Docusate Sodium (COLACE) 100 MG BID PO Sennosides (Senna Lax 8.6 MG TABLET) 17.2 MG BED TIME PO Acetaminophen (TYLENOL) 650 MG Q4H PRN PRN PO Acetaminophen (TYLENOL) 650 MG Q4H PRN PRN RECTA L Dextrose/Water (DEXTROSE 10% IN WATER) 125 ML DIR PRN IV (CKD) Dextrose/Water (DEXTROSE 10% IN WATER) 250 ML DIR PRN IV (CKD) Glucagon (GLUCAGON) 1 MG ASDIR PRN IM Magnesium Sulfate (MAGNESIUM SULFATE 4GM/SWFI 10 0ML) 100 ML ASDIR PRN IV Magnesium Sulfate (MAGNESIUM SULFATE 2GM/SWFI 50 ML) 50 ML ASDIR PRN IV Magnesium Sulfate/Dextrose (MAGNESIUM SULFATE 1G M/D5W 100ML) 100 ML ASDIR PRN IV Ondansetron HCl (ZOFRAN) 4 MG Q6H PRN PRN IV Physical Exam General appearance: alert, awake, oriented, no a cute distress Neck: non-tender, no JVD Cardiovascular: CV assessment: regular rate and rhythm, pedal p ulses present Respiratory: clear to auscultation, no distress Abdomen: non-tender, normal bowel sounds , no distention, no guarding, no mass/ organomegaly, no pulsatile mass, no rebound Genitourinary: no flank pain, no urinary cathete r Lower extremity: LE assessment: normal capillary refill, no mirna a Musculoskeletal: normal inspection Neuro/CERTIFIED NURSES AIDE: alert, oriented X 3, normal speech Skin: dry, intact Psychiatry: normal affect, normal judgment/insig ht, normal mood Results Findings/Data: Laboratory Tests 06/12 06/12 06/11 06/11 06/11 0659 0320 2005 1537 1146 Chemistry Sodium (134 - 147 mEq/L) 134 Potassium (3.4 - 5.0 mEq/L) 3.8 Chloride (100 - 108 mEq/L) 106 Carbon Dioxide (21 - 33 mEq/l) 22 Anion Gap (0 - 20) 9 BUN (7 - 18 mg/dL) 11 Creatinine (0.6 - 1.3 mg/dL) 1.0 Glomerular Filtr Rate (70 - 80) 74.7 Glucose (70 - 110 mg/dL) 114 H POC Glucose (70 - 110 MG/DL) 128 H 212 H 112 H 198 H Calcium (8.0 - 10.5 mg/dL) 8.1 Laboratory Tests 06/12 0320 Hematology WBC (4.5 - 11.0 x10 3/uL) 8.8 RBC (4.00 - 5.60 x10 6/uL) 2.86 L Hgb (12.5 - 16.9 g/dL) 8.8 L Hct (37.5 - 50.7 %) 27.8 L MCV (81.0 - 99.0 fL) 97.2 MCH (27.0 - 33.0 pg) 30.8 MCHC (33.0 - 37.0 g/dL) 31.7 L RDW (11.5 - 14.5 %) 16.1 H Plt Count (150 - 400 x10 3/uL) 278 MPV (7.0 - 9.0 fL) 10.1 H Neut % (Auto) (56.0 - 77.0 %) 68.2 Lymph % (Auto) (14.0 - 32.0 %) 18.3 [place] % (Auto) (4.8 - 9.0 %) 8.8 Eos % (Auto) (0.3 - 3.7 %) 3.1 Baso % (Auto) (0.0 - 2.0 %) 0.5 Neut # (Auto) (2.0 - 7.6 x10 3/uL) 6.02 Lymph # (Auto) (1.0 - 3.8 x10 3/uL) 1.62 [place] # (Auto) (0.1 - 0.8 x10 3/uL) 0.78 Eos # (Auto) (0.0 - 0.2 x10 3/uL) 0.27 H Baso # (Auto) (0.0 - 0.2 x10 3/uL) 0.04 Abs Immat Gran (auto) (0.00 - 0.03 x10 3/uL) 0. 10 H Add Manual Diff NO Immature Gran % (0.0 - 2.0 %) 1.1 Nucleated RBC % (0 - 0 %) 0.2 H Nucleated RBCs # (Man) (0.0 - 0.1 x10 3/uL) 0.0 2 Radiology data: Recent Impressions: RADIOLOGY - XR CHEST 1 V 06/12 0541 Report Impression - Status: SIGNED Entered: 06/12/2023 0705 IMPRESSION: 1. Residual bibasilar opacity with mild improvem ent on the left and slight progression on the right. 2. Otherwise stable. Impression By: Denny1 - Christophe Lord M.D. Results: labs reviewed, vital signs reviewed EKG Interpretation: normal sinus rhythm, 1st deg ree AV block Telemetry Interpretation: sinus rhythm with very long first degree. 0.31 s econds. Diagnosis, Assessment Plan Plan discussed with: patient, collaborating MD, consultants (EP), nurse Free Text DxA P Notes Free Text DxA P Notes: Cardiology consultation s/p mitral valve replace ment on this 83 YO gentleman with PMHx of paroxysmal atri al fibrillation, DM, hypothyrodism who was found to have severe mitral valve prolapse . 1. Severe mitral valve prolapse s/p Mitral Valve Replacement * doing well * post-op care per CTS * post-op bradycardia - which appear to be resol rg * tele sinus rhythm with eugene y long first degree AVB 0.31 seconds. Discussed with EP, will hold amiodarone 2. Atrial fibrillation s/p PVI and ALAA * hold amiodarone due to very long first degree AVB * BB dc'd 3. Junctional Bradycardia/sick sinus syndrome * EP following * tele sinus rhythm with long first degree AVB * hold amiodarone 4. Hypertension * BP stable * continue amlodipine 5 mg daily MDM by Dr. Diggs. at 1301 RPT #:[id number] END OF REPORT 2023-06-12 08:44:00-00:00 [facility] EP Progress Note REPORT#:[id number] REPORT STATUS: Signed DATE:06/12/23 TIME: 843 PATIENT: ODIN ZENG UNIT #: [id number] ROOM/BED: [place] [address] : 40 AGE: 83 SEX: M ATTEND: Ramo Sanchez MD ADM AUTHOR: Suzie Cooper BACK HOE OPERATOR * ALL edits or amendments must be made on the [employer]/computer document * Marita Cooper 06/12/23 0844: Subjective Chief complaint: Patient states he is feeling better OOB in chair Denies CP, palpitations, SOB Patient reports: No: complaints. Nursing reports: No: complaints. Objective General VS/I O Laboratory Tests 06/12/23 0320: [Embedded Image Not Available] Current Medications Sig/Stephanie Start time Last Medication Dose Route Stop Time Status Admin Furosemide 40 MG DAILY 06/11 0900 AC 06/12 PO 07/11 0859 0815 Sodium Chloride 10 ML ASDIR 06/10 0915 AC IV 07/10 0914 Amlodipine Besylate 5 MG DAILY 06/09 1115 AC PO 07/09 1114 0817 Tamsulosin HCl 0.4 MG DAILY 1700 06/08 1700 AC 06/12 PO 07/08 1659 1651 Amiodarone HCl 200 MG BID 06/06 2100 DA 06/12 PO 07/06 2059 0816 Insulin Glargine 10 UNIT BID 06/06 2100 AC 05/19 6 SUBQ 07/06 2059 0814 Ipratropium [place] 500 MCG RTQ2H PRN PRN 06/06 1521 AC 06/09 INH 07/06 1520 0358 Cyanocobalamin 500 MCG DAILY 06/06 09 AC 05/19 6 PO 07/06 0859 0815 Ferrous Sulfate 325 MG DAILY 06/06 09 AC 05/19 6 PO 07/06 0859 0815 Bisacodyl 10 MG ONCE PRN 06/05 1200 AC RECTAL 07/05 1159 Magnesium Hydroxide 30 ML ONCE PRN 06/05 1200 A C PO Atorvastatin Calcium 40 MG 2100 06/04 2100 AC 0 06/11 PO 07/04 2059 211 Insulin Human Lispro 0 AC HS 06/04 1130 AC 05/19 6 SUBQ 07/04 1129 1649 Polyethylene Glycol 17 GM DAILY 06/04 09 AC 0 06/08 PO 07/04 0859 0744 Levothyroxine Sodium 75 MCG DAILY 06/04 06 16 AC 06/12 PO 07/04 0615 0531 Aspirin 81 MG DAILY 06/03 2121 AC 06/12 PO 07/03 2120 0815 Docusate Sodium 100 MG BID 06/03 2100 AC 06/12 PO 07/03 2059 0815 Sennosides 17.2 MG BEDTIME 06/03 2100 AC 06/04 PO 07/03 2059 195 Acetaminophen 650 MG Q4H PRN PRN 06/03 1530 AC 06/12 PO 07/03 1529 0306 Acetaminophen 650 MG Q4H PRN PRN 06/03 1530 AC RECTAL 07/03 1529 Dextrose/Water 125 ML ASDIR PRN 06/03 1530 CKD IV 07/03 1529 Dextrose/Water 250 ML ASDIR PRN 06/03 1530 CKD IV 07/03 1529 Glucagon 1 MG ASDIR PRN 06/03 1530 AC IM 07/03 1529 Magnesium Sulfate 100 ML ASDIR PRN 06/03 1530 A C IV 07/03 1529 Magnesium Sulfate 50 ML ASDIR PRN 06/03 1530 AC IV 07/03 1529 Magnesium Sulfate/ 100 ML ASDIR PRN 06/03 1530 AC 06/10 Dextrose IV 07/03 1529 1210 Ondansetron HCl 4 MG Q6H PRN PRN 06/03 1530 AC IV 07/03 1529 Last Documented: Result Date Time Pulse Ox 96 06/12 1710 B/P 137/63 06/12 1710 B/P Mean 91 06/12 1710 Pulse 72 06/12 1710 Resp 36 06/12 1710 O2 Delivery Room air 06/12 1532 Temp 36.4 06/12 1532 O2 Flow Rate 0 06/10 1201 FiO2 21 06/10 0410 24 hour I O ending at 0700: 06/12 0700 06/11 1900 Intake Total 600 Output Total 175 500 Balance -175 100 Intake, Oral 600 Number 1 Bowel Movements Output, Urine 175 500 Patient 84.2 kg Weight Weight Standing scale Measurement Method PATIENT WEIGHT: Weight (lb): 185 Weight (oz): 10.07 Weight (kg): 84.200 Physical Exam General appearance: alert, awake, oriented, no a cute distress, no respiratory distress HEENT: mucosal membranes moist Neck: full range of motion, non-tender Cardiovascular: CV assessment: regular rate and rhythm, pedal p ulses present Respiratory: decreased breath sounds, no distres s Abdomen: soft, normal bowel sounds Genitourinary: no flank pain Extremities: edema, dry, moves all Musculoskeletal: normal inspection Neuro/CERTIFIED NURSES AIDE: alert, oriented X 3, normal speech Skin: dry, intact Psychiatry: normal affect EKG Interpretation: normal sinus rhythm, 1st deg ree AV block Treatment Prophylaxis Treatment Prophylaxis Oxygen: room air Diagnosis, Assessment Plan Free Text A P: Assessment: 1. Symptomatic bradycardia/sick sinus sydrome - EKG showed accelerated junctional rhythm rate 70 - BP stable - Discontinue BB, decrease amiodarone - On tele, NSR 60-70s with very long first degre e AVB 0.31 seconds, will hold amiodarone - Patient awake, alert, OOB in chair - Denies CP, SOB, palpitations 2. Junctional rhythm 3. Severe mitral valve prola pse s/p Mitral Valve Replacement, PVI, Isolation FLEX 06/03/2023 4. Atrial fibrillation s/p PVI and ALAA 5. CAD, non-obstructive Plan/recommendations: - Continuous tele monitoring - AVOID AV rubi blocking agents - HOLD amiodarone - Post-op care per [facility] team - If no improvement with heart rate/rhythm may n eed pacemaker - Maintaining NSR, no indication for PPM at this time - Will follow closely and monitor heart rate/rhy thm - PO lasix started per [facility] - Discharge to SNF pending - Ok to discharge from EP standpoint, no BB due to bradycardia - Will follow and adjust therapies as clinical c ourse dictates Consultants: anesthesiology, cardiology, cardiov ascular surgery, critical/ paper testing supervisor, hospitalist Code status: full code Plan discussed with: patient Arnie Payne 06/13/23 1216: Attestations Attestation needed: supervising physician Physician Attestation Agree w/findings plan: Patient seen and examined on 06/12/2023. I agree with the findings and plan as documented by Suzie Cooper NP. at 1812 at 1217 RPT #:[id number] END OF REPORT 2023-06-12 08:09:00-00:00 [facility] Hospitalist Progress Note REPORT#:[id number] REPORT STATUS: Signed DATE:06/12/23 TIME: 808 PATIENT: ODIN ZENG UNIT #: [id number] ROOM/BED: [place] [address] : 40 AGE: 83 SEX: M ATTEND: Ramo Sanchez MD ADM AUTHOR: Shane Willoughby NP * ALL edits or amendments must be made on the [employer]/computer document * Subjective Chief complaint: He is breathing better on RA. Using IS. No Cp, fever, chills. No N/v/d. BP is stable. Review of Systems Constitutional: Reports: fatigue, generalized weakness. Allergy/Immun: Denies: anaphylaxis, itching, rhinorrhea. Respiratory: Denies: hemoptysis, pleurisy, pneumonia. Cardiovascular: Denies: REYES (dyspnea on exertion), edema, orthop jackelin. GI: Denies: anorexia, diarrhea, hematochezia, hiatal hernia, rectal pain. : Denies: flank pain, frequency, hematuria, noctur ia, testicular pain. Heme: Denies: bleeding, petechiae. Neuro: Denies: change in LOC, dizziness, headache, numb ness. Objective General VS/I O: Vital Signs: Date Time Temp Pulse Resp B/P B/P Pulse O2 O2 Flow FiO2 Mean Ox Delivery Rate 06/12 0657 36.4 76 16 137/62 0.0 98 Room air 06/12 0312 36.3 69 14 137/65 0.0 95 Room air 06/11 2329 36.8 51 14 108/56 0.0 99 Room air 06/11 1918 97 Room air 06/11 1900 66 69 99 06/11 1824 36.6 75 14 121/60 0.0 97 Room air 06/11 1812 71 141/60 92 98 06/11 1736 77 97 06/11 1542 36.6 64 20 113/63 79.5 96 Room air 06/11 1500 64 98 06/11 1400 73 98 06/11 1328 67 115/56 80 06/11 1300 65 100 06/11 1200 68 99 06/11 1150 36.7 67 18 119/52 74.2 95 Nasal cannula 06/11 1100 55 98 06/11 1000 69 96 06/11 0933 70 109/53 77 96 06/11 0900 67 31 97 24 hour I O ending at 0700: 06/12 0700 06/11 1900 Intake Total 600 Output Total 175 500 Balance -175 100 Intake, Oral 600 Number 1 Bowel Movements Output, Urine 175 500 Patient 84.2 kg Weight Weight Standing scale Measurement Method PATIENT WEIGHT: Weight (lb): 185 Weight (oz): 10.07 Weight (kg): 84.200 Medications: Active Meds + DC'd Last 24 Hrs Furosemide (LASIX) 40 MG DAILY PO Sodium Chloride (SODIUM CHLORIDE) 10 ML ASDIR IV Amlodipine Besylate (NORVASC) 5 MG DAILY PO Tamsulosin HCl (Flomax 0.4 mg) 0.4 MG DAILY 1700 PO Amiodarone HCl (CORDARONE) 200 MG BID PO Insulin Glargine (Semglee) 10 UNIT BID SUBQ Ipratropium [place] (ATROVENT) 500 MCG RTQ2H PRN PRN INH Cyanocobalamin (Vitamin B-12 500 mcg tab) 500 MC G DAILY PO Ferrous Sulfate (FERROUS SULFATE) 325 MG DAILY P O Bisacodyl (DULCOLAX) 10 MG ONCE PRN RECTAL Magnesium Hydroxide (MILK OF MAGNESIA) 30 ML ONC E PRN PO Atorvastatin Calcium (LIPITOR) 40 MG 2100 PO Insulin Human Lispro (HUMALOG) 0 AC HS SUBQ Polyethylene Glycol (MIRALAX) 17 GM DAILY PO Tamsulosin HCl (Flomax 0.4 mg) 0.4 MG PC BK PO ( DC) Levothyroxine Sodium (Synthroid) 75 MCG DAILY 06 00 PO Aspirin (ASPIRIN) 81 MG DAILY PO Docusate Sodium (COLACE) 100 MG BID PO Sennosides (Senna Lax 8.6 MG TABLET) 17.2 MG BED TIME PO Acetaminophen (TYLENOL) 650 MG Q4H PRN PRN PO Acetaminophen (TYLENOL) 650 MG Q4H PRN PRN RECTA L Dextrose/Water (DEXTROSE 10% IN WATER) 125 ML DIR PRN IV (CKD) Dextrose/Water (DEXTROSE 10% IN WATER) 250 ML DIR PRN IV (CKD) Glucagon (GLUCAGON) 1 MG ASDIR PRN IM Magnesium Sulfate (MAGNESIUM SULFATE 4GM/SWFI 10 0ML) 100 ML ASDIR PRN IV Magnesium Sulfate (MAGNESIUM SULFATE 2GM/SWFI 50 ML) 50 ML ASDIR PRN IV Magnesium Sulfate/Dextrose (MAGNESIUM SULFATE 1G M/D5W 100ML) 100 ML ASDIR PRN IV Ondansetron HCl (ZOFRAN) 4 MG Q6H PRN PRN IV Dietitian nutrition assessment The data set between the solid lines has been im ported from the dietitian's assessment. BMI Calculated: 28.2 Nutrition related diagnosis: Nutrition diagnosis details: Nutrition problem: Increased nutrient needs Nutrition etiology: Acute illness Nutrition signs and symptoms: HEALING NEEDS S/P SURGERY Nutrition prescription: 1. CONTINUE CARDIAC DIET , ADD EASY TO CHEW FOODS. 2. PROVIDE GLUCERNA TID WITH MEALS. Dietitian name: Amena L. Lalo, RD, LD Assessment completed: 06/11/23 Physical Exam General appearance: alert, awake, oriented Head/Eyes: atraumatic, normocephalic, PERRLA Neck: full range of motion, non-tender, normal thyroid, supple/no meningismus, no bruit/NL carotids, no JVD Cardiovascular: normal capillary refill, normal heart sounds, regular rate rhythm Respiratory: aerating well, symmetric expansion, no distress Abdomen: non-tender, normal bowel sounds, soft Genitourinary: no bladder distention, no flank p ain, no urinary catheter Extremities: no calf tenderness, no clubbing, no cyanosis Musculoskeletal: no muscle spasm Neuro/CERTIFIED NURSES AIDE: alert, oriented X 3, CNII-XII intact Results Findings/Data: Laboratory Tests 06/12 06/12 06/11 06/11 06/11 0659 0320 2005 1537 1146 Chemistry Sodium (134 - 147 mEq/L) 134 Potassium (3.4 - 5.0 mEq/L) 3.8 Chloride (100 - 108 mEq/L) 106 Carbon Dioxide (21 - 33 mEq/l) 22 Anion Gap (0 - 20) 9 BUN (7 - 18 mg/dL) 11 Creatinine (0.6 - 1.3 mg/dL) 1.0 Glomerular Filtr Rate (70 - 80) 74.7 Glucose (70 - 110 mg/dL) 114 H POC Glucose (70 - 110 MG/DL) 128 H 212 H 112 H 198 H Calcium (8.0 - 10.5 mg/dL) 8.1 Laboratory Tests 06/12 0320 Hematology WBC (4.5 - 11.0 x10 3/uL) 8.8 RBC (4.00 - 5.60 x10 6/uL) 2.86 L Hgb (12.5 - 16.9 g/dL) 8.8 L Hct (37.5 - 50.7 %) 27.8 L MCV (81.0 - 99.0 fL) 97.2 MCH (27.0 - 33.0 pg) 30.8 MCHC (33.0 - 37.0 g/dL) 31.7 L RDW (11.5 - 14.5 %) 16.1 H Plt Count (150 - 400 x10 3/uL) 278 MPV (7.0 - 9.0 fL) 10.1 H Neut % (Auto) (56.0 - 77.0 %) 68.2 Lymph % (Auto) (14.0 - 32.0 %) 18.3 [place] % (Auto) (4.8 - 9.0 %) 8.8 Eos % (Auto) (0.3 - 3.7 %) 3.1 Baso % (Auto) (0.0 - 2.0 %) 0.5 Neut # (Auto) (2.0 - 7.6 x10 3/uL) 6.02 Lymph # (Auto) (1.0 - 3.8 x10 3/uL) 1.62 [place] # (Auto) (0.1 - 0.8 x10 3/uL) 0.78 Eos # (Auto) (0.0 - 0.2 x10 3/uL) 0.27 H Baso # (Auto) (0.0 - 0.2 x10 3/uL) 0.04 Abs Immat Gran (auto) (0.00 - 0.03 x10 3/uL) 0. 10 H Add Manual Diff NO Immature Gran % (0.0 - 2.0 %) 1.1 Nucleated RBC % (0 - 0 %) 0.2 H Nucleated RBCs # (Man) (0.0 - 0.1 x10 3/uL) 0.0 2 Radiology data: Recent Impressions: RADIOLOGY - XR CHEST 1 V 06/12 0541 Report Impression - Status: SIGNED Entered: 06/12/2023 0700 IMPRESSION: 1. Residual bibasilar opacity with mild improvem ent on the left and slight progression on the right. 2. Otherwise stable. Impression By: Denny1 - Christophe Lord M.D. Results: labs reviewed, vital signs reviewed, vi mercedes signs stable, current med profile rev'd Treatment Prophylaxis Treatment Prophylaxis Oxygen: room air Diagnosis, Assessment Plan Hospital course to date: Assessment and Plan: - Mitral regurgitation/Paroxysmal atrial fibrill s/p Mitral valve replacement and Pulmonary vein isolation, Isolation of left atrial appendage. - CP and SOB due to MR. - HX of atrial fibrillation, status post failed ablation in the past, on Eliquis therapy, diabetes, hypothyroid. Plan: CVN1. Will be dc home soon. Aggressive IS. Monitor Respiratory status, breathing tx, o2 sup port. Continue BB and Amiodarone, Lipitor. Pain meds. Antiemetics. Follow labs and replace as needed. SCDs for dVT ppx. Continue Monitor. Consultants: anesthesiology, cardiology, cardiov ascular surgery, critical/ paper testing supervisor, hospitalist Code status: full code Plan discussed with: patient, admitting physicia n, consultants, nurse Electronically Signed by Shane Willoughby BACK HOE OPERATOR on at 0811 RPT #:[id number] END OF REPORT 2023-06-12 07:26:00-00:00 [facility] RE[facility]#:[id number] REPORT STATUS: Signed DATE:06/12/23 TIME: 725 PATIENT: ODIN ZENG UNIT #: [id number] ROOM/BED: [place] [address] : 40 AGE: 83 SEX: M ATTEND: Ramo Sanchez MD ADM AUTHOR: Abiodun Sanchez MD * ALL edits or amendments must be made on the [employer]/computer document * Subjective HPI: Good pain control No new issues overnight Objective General VS/I O Last Documented: Result Date Time Pulse Ox 100 06/13 1549 B/P 134/60 06/13 1549 B/P Mean 0.0 06/13 1549 Temp 36.6 06/13 1549 Pulse 71 06/13 1549 Resp 18 06/13 1549 O2 Delivery Room air 06/13 0405 O2 Flow Rate 0 06/10 1201 FiO2 21 06/10 0410 24 hour I O ending at 0700: 06/13 0700 06/12 1900 Intake Total 300 700 Output Total 600 900 Balance -300 -200 Intake, Oral 300 700 Number 1 Bowel Movements Output, Urine 600 900 PATIENT WEIGHT: Weight (lb): 185 Weight (oz): 10.07 Weight (kg): 84.200 Physical Exam General appearance: alert, awake, oriented Wound/incision: Location: Sternum clean and dry HEENT: mucosal membranes moist Neck: non-tender Cardiovascular: BP/pulses equal bilat. Respiratory: decreased breath sounds Abdomen: soft, non-tender Extremities: dry, moves all Musculoskeletal: full range of motion Neuro/CERTIFIED NURSES AIDE: alert, oriented X 3 Skin: dry Psychiatry: normal affect, normal mood Results Findings/Data: Laboratory Tests 06/12 06/11 06/11 06/11 0659 2005 1537 1146 Chemistry POC Glucose (70 - 110 MG/DL) 128 H 212 H 112 H 198 H Laboratory Tests 06/12 0320 Hematology Plt Count (150 - 400 x10 3/uL) 278 Diagnosis, Assessment Plan Free Text A P: Ambulate Encourage incentive spirometer Transfer to cardiac unit Discharge planning at 1732 RPT #:[id number] END OF REPORT 2023-06-11 16:00:00-00:00 [facility] Cardiology Progress Note REPORT#:[id number] REPORT STATUS: Signed DATE:06/11/23 TIME: 1600 PATIENT: ODIN ZENG UNIT #: [id number] ROOM/BED: [place] [address] : 40 AGE: 83 SEX: M ATTEND: Ramo Sanchez MD ADM AUTHOR: Kathe Bradshaw [facility] * ALL edits or amendments must be made on the [employer]/computer document * Subjective Patient reports: No: complaints. Objective General VS/I O: 24 hour I O ending at 0700: 06/11 0700 06/10 1900 Intake Total 300 720 Output Total 900 3 Balance -600 717 Intake, Oral 300 720 Number 3 Bowel Movements Number Voids 1 Output, Urine 900 3 Patient 87.8 kg Weight Weight Standing scale Measurement Method Vital Signs: Date Time Temp Pulse Resp B/P B/P Pulse O2 O2 F low FiO2 Mean Ox Delivery Rate 06/11 1542 36.6 64 20 113/63 79.5 96 Room air 06/11 1150 36.7 67 18 119/52 74.2 95 Nasal cannula 06/11 0655 36.7 57 20 103/51 68.6 95 Room air 06/11 0400 62 26 113/59 83 97 06/11 0322 36.8 70 14 122/58 0.0 97 Room air 06/11 0000 75 29 106/51 74 95 06/10 2317 36.3 63 14 107/59 0.0 98 Room air 06/10 2300 74 117/61 80 96 06/10 2200 69 30 118/59 82 94 06/10 2100 68 119/57 80 95 06/10 2100 97 Room air 06/10 2000 76 109/58 84 95 06/10 1900 79 112/53 74 94 06/10 1852 36.9 73 14 113/54 0.0 95 Room air 06/10 1714 36.5 67 20 116/62 0.0 93 06/10 1700 72 47 116/62 82 96 06/10 1603 73 24 135/54 78 PATIENT WEIGHT: Weight (lb): 193 Weight (oz): 9.05 Weight (kg): 87.800 Medications: Active Meds + DC'd Last 24 Hrs Furosemide (LASIX) 40 MG DAILY PO Sodium Chloride (SODIUM CHLORIDE) 10 ML ASDIR IV Amlodipine Besylate (NORVASC) 5 MG DAILY PO Tamsulosin HCl (Flomax 0.4 mg) 0.4 MG DAILY 1700 PO Amiodarone HCl (CORDARONE) 200 MG BID PO Insulin Glargine (Semglee) 10 UNIT BID SUBQ Ipratropium [place] (ATROVENT) 500 MCG RTQ2H PRN PRN INH Cyanocobalamin (Vitamin B-12 500 mcg tab) 500 MC G DAILY PO Ferrous Sulfate (FERROUS SULFATE) 325 MG DAILY P O Bisacodyl (DULCOLAX) 10 MG ONCE PRN RECTAL Magnesium Hydroxide (MILK OF MAGNESIA) 30 ML ONC E PRN PO Atorvastatin Calcium (LIPITOR) 40 MG 2100 PO Insulin Human Lispro (HUMALOG) 0 AC HS SUBQ Polyethylene Glycol (MIRALAX) 17 GM DAILY PO Tamsulosin HCl (Flomax 0.4 mg) 0.4 MG PC BK PO Levothyroxine Sodium (Synthroid) 75 MCG DAILY 06 00 PO Aspirin (ASPIRIN) 81 MG DAILY PO Docusate Sodium (COLACE) 100 MG BID PO Sennosides (Senna Lax 8.6 MG TABLET) 17.2 MG BED TIME PO Acetaminophen (TYLENOL) 650 MG Q4H PRN PRN PO Acetaminophen (TYLENOL) 650 MG Q4H PRN PRN RECTA L Dextrose/Water (DEXTROSE 10% IN WATER) 125 ML DIR PRN IV (CKD) Dextrose/Water (DEXTROSE 10% IN WATER) 250 ML DIR PRN IV (CKD) Glucagon (GLUCAGON) 1 MG ASDIR PRN IM Magnesium Sulfate (MAGNESIUM SULFATE 4GM/SWFI 10 0ML) 100 ML ASDIR PRN IV Magnesium Sulfate (MAGNESIUM SULFATE 2GM/SWFI 50 ML) 50 ML ASDIR PRN IV Magnesium Sulfate/Dextrose (MAGNESIUM SULFATE 1G M/D5W 100ML) 100 ML ASDIR PRN IV Ondansetron HCl (ZOFRAN) 4 MG Q6H PRN PRN IV Physical Exam General appearance: alert, awake Neck: non-tender, no JVD Cardiovascular: CV assessment: regular rate and rhythm, pedal p ulses present Respiratory: clear to auscultation, no distress Abdomen: non-tender, normal bowel sounds , no distention, no guarding, no mass/ organomegaly, no pulsatile mass, no rebound Genitourinary: no flank pain, no urinary cathete r Lower extremity: LE assessment: normal capillary refill, no mirna a Musculoskeletal: normal inspection Neuro/CERTIFIED NURSES AIDE: alert, oriented X 3, normal speech Skin: dry, intact Psychiatry: normal affect, normal judgment/insig ht, normal mood Results Findings/Data: Laboratory Tests 06/11 06/11 06/11 06/10 06/10 1537 0647 0500 1853 1704 Chemistry Sodium (134 - 147 mEq/L) 135 Potassium (3.4 - 5.0 mEq/L) 3.8 Chloride (100 - 108 mEq/L) 104 Carbon Dioxide (21 - 33 mEq/l) 21 Anion Gap (0 - 20) 14 BUN (7 - 18 mg/dL) 10 Creatinine (0.6 - 1.3 mg/dL) 1.1 Glomerular Filtr Rate (70 - 80) 66.6 L Glucose (70 - 110 mg/dL) 130 H POC Glucose (70 - 110 MG/DL) 112 H 130 H 118 H 113 H Calcium (8.0 - 10.5 mg/dL) 7.8 L Laboratory Tests 06/11 0500 Hematology WBC (4.5 - 11.0 x10 3/uL) 9.3 RBC (4.00 - 5.60 x10 6/uL) 2.93 L Hgb (12.5 - 16.9 g/dL) 8.9 L Hct (37.5 - 50.7 %) 27.8 L MCV (81.0 - 99.0 fL) 94.9 MCH (27.0 - 33.0 pg) 30.4 MCHC (33.0 - 37.0 g/dL) 32.0 L RDW (11.5 - 14.5 %) 15.8 H Plt Count (150 - 400 x10 3/uL) 279 MPV (7.0 - 9.0 fL) 10.3 H Neut % (Auto) (56.0 - 77.0 %) 62.2 Lymph % (Auto) (14.0 - 32.0 %) 23.8 [place] % (Auto) (4.8 - 9.0 %) 9.9 H Eos % (Auto) (0.3 - 3.7 %) 2.6 Baso % (Auto) (0.0 - 2.0 %) 0.3 Neut # (Auto) (2.0 - 7.6 x10 3/uL) 5.75 Lymph # (Auto) (1.0 - 3.8 x10 3/uL) 2.20 [place] # (Auto) (0.1 - 0.8 x10 3/uL) 0.92 H Eos # (Auto) (0.0 - 0.2 x10 3/uL) 0.24 H Baso # (Auto) (0.0 - 0.2 x10 3/uL) 0.03 Abs Immat Gran (auto) (0.00 - 0.03 x10 3/uL) 0. 11 H Add Manual Diff NO Immature Gran % (0.0 - 2.0 %) 1.2 Nucleated RBC % (0 - 0 %) 0.3 H Nucleated RBCs # (Man) (0.0 - 0.1 x10 3/uL) 0.0 3 Radiology data: Recent Impressions: RADIOLOGY - XR CHEST 1 V 06/11 0643 Report Impression - Status: SIGNED Entered: 06/11/2023 7879 IMPRESSION: Mild worsening opacities in both lung bases. Impression By: DouglasSWNazia - Tom Bello M.D. Results: labs reviewed, vital signs reviewed, ythm personally rev'd Telemetry Interpretation: sinus kareem to sinus rhythm with first degree AV B. Diagnosis, Assessment Plan Plan discussed with: patient, collaborating MD, nurse Free Text DxA P Notes Free Text DxA P Notes: Cardiology consultation s/p mitral valve replace ment on this 83 YO gentleman with PMHx of paroxysmal atri al fibrillation, DM, hypothyrodism who was found to have severe mitral valve prolapse . 1. Severe mitral valve prolapse s/p Mitral Valve Replacement * doing well * post-op care per CTS * post-op bradycardia - EP following * tele sinus kareem to sinus rhythm 50-70s. 2. Atrial fibrillation s/p PVI and ALAA * on amiodarone 200 mg BID * BB dc'd 3. Junctional Bradycardia/sick sinus syndrome * EP following * tele sinus kareem to sinus rhythm with first de gree AVB, HR 50s-70s. 4. Hypertension * BP stable * continue amlodipine 5 mg daily MDM by Dr. Diggs. at 1603 RPT #:[id number] END OF REPORT 2023-06-11 12:56:00-00:00 [facility] Progress Note REPORT#:[id number] REPORT STATUS: Signed DATE:06/11/23 TIME: 1256 PATIENT: ODIN ZENG UNIT #: [id number] ROOM/BED: [place] [address] : 40 AGE: 83 SEX: M ATTEND: Ramo Sanchez MD ADM AUTHOR: Nguyen Andrew BACK HOE OPERATOR * ALL edits or amendments must be made on the [employer]/computer document * Subjective Chief complaint: PMR follow-up NAD OOB in chair + generalized weakness Denies ALBERTO/N/V/D/CP 14 systems reviewed and neg. except that above. Objective General VS: Vital Signs: Date Time Temp Pulse Resp B/P B/P Pulse O2 O2 F low FiO2 Mean Ox Delivery Rate 06/11 1150 98.1 67 18 119/52 74.2 95 Nasal cannula 06/11 0655 98.1 57 20 103/51 68.6 95 Room air 06/11 0400 62 26 113/59 83 97 06/11 0322 98.2 70 14 122/58 0.0 97 Room air 06/11 0000 75 29 106/51 74 95 06/10 2317 97.3 63 14 107/59 0.0 98 Room air 06/10 2300 74 117/61 80 96 06/10 2200 69 30 118/59 82 94 06/10 2100 68 119/57 80 95 06/10 2100 97 Room air 06/10 2000 76 109/58 84 95 06/10 1900 79 112/53 74 94 06/10 1852 98.4 73 14 113/54 0.0 95 Room air 06/10 1714 97.7 67 20 116/62 0.0 93 06/10 1700 72 47 116/62 82 96 06/10 1603 73 24 135/54 78 06/10 1500 66 22 96/52 71 100 06/10 1401 80 15 95/50 66 96 06/10 1300 64 20 123/81 95 95 PATIENT WEIGHT: Weight (lb): 193 Weight (oz): 9.05 Weight (kg): 87.800 Medications: Active Meds + DC'd Last 24 Hrs Furosemide (LASIX) 40 MG DAILY PO Sodium Chloride (SODIUM CHLORIDE) 10 ML ASDIR IV Amlodipine Besylate (NORVASC) 5 MG DAILY PO Tamsulosin HCl (Flomax 0.4 mg) 0.4 MG DAILY 1700 PO Amiodarone HCl (CORDARONE) 200 MG BID PO Insulin Glargine (Semglee) 10 UNIT BID SUBQ Ipratropium [place] (ATROVENT) 500 MCG RTQ2H PRN PRN INH Cyanocobalamin (Vitamin B-12 500 mcg tab) 500 MC G DAILY PO Ferrous Sulfate (FERROUS SULFATE) 325 MG DAILY P O Bisacodyl (DULCOLAX) 10 MG ONCE PRN RECTAL Magnesium Hydroxide (MILK OF MAGNESIA) 30 ML ONC E PRN PO Atorvastatin Calcium (LIPITOR) 40 MG 2100 PO Insulin Human Lispro (HUMALOG) 0 AC HS SUBQ Polyethylene Glycol (MIRALAX) 17 GM DAILY PO Tamsulosin HCl (Flomax 0.4 mg) 0.4 MG PC BK PO Levothyroxine Sodium (Synthroid) 75 MCG DAILY 06 00 PO Aspirin (ASPIRIN) 81 MG DAILY PO Docusate Sodium (COLACE) 100 MG BID PO Sennosides (Senna Lax 8.6 MG TABLET) 17.2 MG BED TIME PO Acetaminophen (TYLENOL) 650 MG Q4H PRN PRN PO Acetaminophen (TYLENOL) 650 MG Q4H PRN PRN RECTA L Calcium Chloride (CALCIUM CHLORIDE) 1 GM ASDIR P RN IV (DC) Dextrose/Water (DEXTROSE 10% IN WATER) 125 ML DIR PRN IV (CKD) Dextrose/Water (DEXTROSE 10% IN WATER) 250 ML DIR PRN IV (CKD) Epinephrine (ADRENALIN CHLORIDE) 4 MG ASDIR IV ( DC) Dextrose/Water (DEXTROSE 5% WATER) 246 ML Glucagon (GLUCAGON) 1 MG ASDIR PRN IM Insulin Human Regular (HumuLIN R) 100 UNIT ASDIR IV (DC) Sodium Chloride (SODIUM CHLORIDE 0.9%) 99 ML Magnesium Sulfate (MAGNESIUM SULFATE 4GM/SWFI 10 0ML) 100 ML ASDIR PRN IV Magnesium Sulfate (MAGNESIUM SULFATE 2GM/SWFI 50 ML) 50 ML ASDIR PRN IV Magnesium Sulfate/Dextrose (MAGNESIUM SULFATE 1G M/D5W 100ML) 100 ML ASDIR PRN IV Nitroglycerin/Dextrose (NITROGLYCERIN 50,000MCG/ D5W 250ML) 250 ML ASDIR IV (DC) Norepinephrine Bitartrate (NOREPINEPHRINE 8 MG/N S 250 ML) 250 ML TITRATE IV (DC) Ondansetron HCl (ZOFRAN) 4 MG Q6H PRN PRN IV Potassium Chloride (KCL 20MEQ/SWFI 100ML) 100 ML ASDIR PRN IV (DC) Sodium Bicarbonate (SODIUM BICARBONATE) 50 MEQ A SDIR PRN IV (DC) Sodium Chloride (SODIUM CHLORIDE) 20 ML ASDIR IV (DC) Lactated Ringer's (LACTATED RINGERS) 1,000 ML SD EOP ONCALL IV (DC) Lidocaine HCl (LIDOCAINE HCL/PF) 2 ML PREOP ONCA LL LOCAL (DC) Lidocaine HCl (LIDOCAINE HCL/PF) 2 ML PREOP ONCA LL LOCAL (DC) Sodium Chloride (SODIUM CHLORIDE 0.9%) 500 ML SD EOP ONCALL IV (DC) Sodium Chloride (SODIUM CHLORIDE 0.9%) 500 ML SD EOP ONCALL IV (DC) Sodium Chloride (SODIUM CHLORIDE 0.9%) 1,000 ML PREOP ONCALL IV (DC) Sodium Chloride (SODIUM CHLORIDE) 5 ML ASDIR PRN IV (DC) Sodium Chloride (SODIUM CHLORIDE) 10 ML ASDIR SD N IV (DC) Sodium Chloride (SODIUM CHLORIDE 0.9%) 250 ML DIR PRN IV (DC) Physical Exam General appearance: alert, awake Psych: alert, oriented x 3 HEENT: anicteric, sclera clear Neck: supple, no JVD Cardiovascular: regular rate rhythm, S1/S2 Respiratory: aerating well, clear bilaterally Abdomen: bowel sounds present, non-distended, so ft Skin: intact, no rash, incisions C/D/I Musculoskeletal - general: Musculoskeletal - general: joints normal, isabell l muscle mass Neuro/CERTIFIED NURSES AIDE: CNII-XII intact Results Findings/Data: Laboratory Tests: 06/11 06/11 06/10 06/10 06/10 0647 0500 1853 1704 1502 Chemistry Sodium (134 - 147 mEq/L) 135 Potassium (3.4 - 5.0 mEq/L) 3.8 Chloride (100 - 108 mEq/L) 104 Carbon Dioxide (21 - 33 mEq/l) 21 Anion Gap (0 - 20) 14 BUN (7 - 18 mg/dL) 10 Creatinine (0.6 - 1.3 mg/dL) 1.1 Glomerular Filtr Rate (70 - 80) 66.6 L Glucose (70 - 110 mg/dL) 130 H POC Glucose (70 - 110 MG/DL) 130 H 118 H 113 H 110 Calcium (8.0 - 10.5 mg/dL) 7.8 L Hematology WBC (4.5 - 11.0 x10 3/uL) 9.3 RBC (4.00 - 5.60 x10 6/uL) 2.93 L Hgb (12.5 - 16.9 g/dL) 8.9 L Hct (37.5 - 50.7 %) 27.8 L MCV (81.0 - 99.0 fL) 94.9 MCH (27.0 - 33.0 pg) 30.4 MCHC (33.0 - 37.0 g/dL) 32.0 L RDW (11.5 - 14.5 %) 15.8 H Plt Count (150 - 400 x10 3/uL) 279 MPV (7.0 - 9.0 fL) 10.3 H Neut % (Auto) (56.0 - 77.0 %) 62.2 Lymph % (Auto) (14.0 - 32.0 %) 23.8 [place] % (Auto) (4.8 - 9.0 %) 9.9 H Eos % (Auto) (0.3 - 3.7 %) 2.6 Baso % (Auto) (0.0 - 2.0 %) 0.3 Neut # (Auto) (2.0 - 7.6 x10 3/uL) 5.75 Lymph # (Auto) (1.0 - 3.8 x10 3/uL) 2.20 [place] # (Auto) (0.1 - 0.8 x10 3/uL) 0.92 H Eos # (Auto) (0.0 - 0.2 x10 3/uL) 0.24 H Baso # (Auto) (0.0 - 0.2 x10 3/uL) 0.03 Abs Immat Gran (auto) (0.00 - 0.03 0.11 H x10 3/uL) Add Manual Diff NO Immature Gran % (0.0 - 2.0 %) 1.2 Nucleated RBC % (0 - 0 %) 0.3 H Nucleated RBCs # (Man) (0.0 - 0.1 0.03 x10 3/uL) Diagnosis, Assessment Plan Free Text A P: Severe mitral regurgitation Status post mitral valve replacement Impaired ADLs, mobility, gait Generalized weakness Postoperative anemia Postoperative pain Symptomatic bradycardia/sick sinus sydrome Atrial fibrillation s/p PVI and ALAA Plan: Continue PT/OT Out of bed to chair Work on strength, bed mobility, transfers, gait Sternal precautions Increase endurance Fall precautions Monitor p.o. intake and nutrition Strict decubitus precautions Continue current medications Monitor labs closely Advance therapies as tolerated BLE venous dopplers negative for DVT -Amniodarone decreased -EP following -note states pt ok to dischaarge -Avoid AV rubi blocking agent -c/w tele Update on therapies: Bed mobility modified independent Gait 100 feet with no AD SBA 400 feet with rolling walker Jose Francisco FF: 30-minute time spent with patient and daught ers at bedside discussing current level of function with therapy, home env ironment and pending SNF. Discussed the option of discharging home with [facility] Patient states that his will not be able to help him in any way when he gets home. 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 Daughter's at bedside still wish for him to go to SNF setting to assit with him b eing Independent with all Mobiltiy and ADLs. They state they can not offer any assistance at home. Reviewed chart, meds, labs, notes, and therapy Performed physical exam Consultants: anesthesiology, cardiology, cardiov ascular surgery, critical/ paper testing supervisor, hospitalist Rehab attestation: Face to face exam completed. Treatment plan disc ussed with patient. 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 Nursing reports: No: complaints. Objective General VS/I O Laboratory Tests 06/11/23 0500: [Embedded Image Not Available] Current Medications Sig/Stephanie Start time Last Medication Dose Route Stop Time Status Admin Furosemide 40 MG DAILY 06/11 0900 AC 06/11 PO 07/11 0859 0939 Sodium Chloride 10 ML ASDIR 06/10 0915 AC IV 07/10 0914 Amlodipine Besylate 5 MG DAILY 06/09 1115 AC PO 07/09 1114 0858 Tamsulosin HCl 0.4 MG DAILY 1700 06/08 1700 AC 06/10 PO 07/08 1659 1559 Amiodarone HCl 200 MG BID 06/06 2100 AC 06/11 PO 07/06 2059 0940 Insulin Glargine 10 UNIT BID 06/06 2100 AC 05/19 5 SUBQ 07/06 2059 0938 Ipratropium [place] 500 MCG RTQ2H PRN PRN 06/06 1521 AC 06/09 INH 07/06 1520 0358 Cyanocobalamin 500 MCG DAILY 06/06 0900 AC 07 5 PO 07/06 0859 0938 Ferrous Sulfate 325 MG DAILY 06/06 09 AC PO 07/06 0859 0937 Bisacodyl 10 MG ONCE PRN 06/05 1200 AC RECTAL 07/05 1159 Magnesium Hydroxide 30 ML ONCE PRN 06/05 1200 A C PO Atorvastatin Calcium 40 MG 2100 06/04 2100 AC 0 06/10 PO 07/04 Insulin Human Lispro 0 AC HS 06/04 1130 AC 05/19 4 SUBQ 07/04 1129 1210 Polyethylene Glycol 17 GM DAILY 06/04 09 AC 0 06/08 PO 07/04 0859 0744 Tamsulosin HCl 0.4 MG PC BK 06/04 09 AC 06/11 PO 07/04 0859 0938 Levothyroxine Sodium 75 MCG DAILY 0606/04 06 16 AC 06/11 PO 07/04 0615 0446 Aspirin 81 MG DAILY 06/03 2121 AC 06/11 PO 07/03 2120 0937 Docusate Sodium 100 MG BID 06/03 2100 AC 06/11 PO 07/03 2059 0938 Sennosides 17.2 MG BEDTIME 06/03 2100 AC 06/04 PO 07/03 2059 1951 Acetaminophen 650 MG Q4H PRN PRN 06/03 1530 AC 06/11 PO 07/03 1529 0447 Acetaminophen 650 MG Q4H PRN PRN 06/03 1530 AC RECTAL 07/03 1529 Calcium Chloride 1 GM ASDIR PRN 06/03 1530 DC IV 07/03 1529 Dextrose/Water 125 ML ASDIR PRN 06/03 1530 CKD IV 07/03 1529 Dextrose/Water 250 ML ASDIR PRN 06/03 1530 CKD IV 07/03 1529 Epinephrine 4 MG ASDIR 06/03 1530 DC Dextrose/Water 246 ML IV 07/03 1529 Glucagon 1 MG ASDIR PRN 06/03 1530 AC IM 07/03 1529 Insulin Human Regular 100 UNIT ASDIR 06/03 1530 DC Sodium Chloride 99 ML IV 07/03 1529 Magnesium Sulfate 100 ML ASDIR PRN 06/03 1530 AC IV 07/03 1529 Magnesium Sulfate 50 ML ASDIR PRN 06/03 1530 AC IV 07/03 1529 Magnesium Sulfate/ 100 ML ASDIR PRN 06/03 1530 AC 06/10 Dextrose IV 07/03 1529 1210 Nitroglycerin/ 250 ML ASDIR 06/03 1530 DC Dextrose IV 07/03 1529 Norepinephrine 250 ML TITRATE 06/03 1530 DC Bitartrate IV 07/03 1529 Ondansetron HCl 4 MG Q6H PRN PRN 06/03 1530 AC IV 07/03 1529 Potassium Chloride 100 ML ASDIR PRN 06/03 1530 DC 06/03 IV 07/03 1529 2258 Sodium Bicarbonate 50 MEQ ASDIR PRN 06/03 1530 DC 06/03 IV 07/03 1529 1731 Sodium Chloride 20 ML ASDIR 06/03 1145 DC IV 07/03 1144 Lactated Ringer's 1,000 ML PREOP ONCALL 05/31 1 615 DC IV 06/30 2359 Lidocaine HCl 2 ML PREOP ONCALL 05/31 1615 DC LOCAL 06/30 2359 Lidocaine HCl 2 ML PREOP ONCALL 05/31 1615 DC LOCAL 06/30 2359 Sodium Chloride 500 ML PREOP ONCALL 05/31 1615 DC IV 06/30 2359 Sodium Chloride 500 ML PREOP ONCALL 05/31 1615 DC IV 06/30 2359 Sodium Chloride 1,000 ML PREOP ONCALL 05/31 161 5 DC IV 06/30 2359 Sodium Chloride 5 ML ASDIR PRN 05/31 1615 DC IV 06/30 1614 Sodium Chloride 10 ML ASDIR PRN 05/31 1615 DC IV 06/30 1614 Sodium Chloride 250 ML ASDIR PRN 05/31 1615 DC IV 06/30 1614 Last Documented: Result Date Time Pulse Ox 95 06/11 1150 B/P 119/52 06/11 1150 B/P Mean 74.2 06/11 1150 O2 Delivery Nasal cannula 06/11 1150 Temp 36.7 06/11 1150 Pulse 67 06/11 1150 Resp 18 06/11 1150 O2 Flow Rate 0 06/10 1201 FiO2 21 06/10 0410 24 hour I O ending at 0700: 06/11 0700 06/10 1900 Intake Total 300 720 Output Total 900 3 Balance -600 717 Intake, Oral 300 720 Number 3 Bowel Movements Number Voids 1 Output, Urine 900 3 Patient 87.8 kg Weight Weight Standing scale Measurement Method PATIENT WEIGHT: Weight (lb): 193 Weight (oz): 9.05 Weight (kg): 87.800 Physical Exam General appearance: alert, awake, oriented, no a cute distress, no respiratory distress HEENT: mucosal membranes moist Neck: full range of motion, non-tender Cardiovascular: CV assessment: regular rate and rhythm, pedal p ulses present Respiratory: decreased breath sounds, no distres s Abdomen: soft, normal bowel sounds Genitourinary: no flank pain Extremities: edema, dry, moves all Musculoskeletal: normal inspection Neuro/CERTIFIED NURSES AIDE: alert, oriented X 3, normal speech Skin: dry, intact Psychiatry: normal affect EKG Interpretation: normal sinus rhythm Treatment Prophylaxis Treatment Prophylaxis Oxygen: room air Diagnosis, Assessment Plan Free Text A P: Assessment: 1. Symptomatic bradycardia/sick sinus sydrome - EKG showed accelerated junctional rhythm rate 70 - BP stable - Discontinue BB, decrease amiodarone - On tele, NSR 60-70s - Patient awake, alert, OOB in chair - Denies CP, SOB, palpitations 2. Junctional rhythm 3. Severe mitral valve prola pse s/p Mitral Valve Replacement, PVI, Isolation FLEX 06/03/2023 4. Atrial fibrillation s/p PVI and ALAA 5. CAD, non-obstructive Plan/recommendations: - Continuous tele monitoring - AVOID AV rubi blocking agents - Decrease amiodarone dose - Post-op care per [facility] team - If no improvement with heart rate/rhythm may n eed pacemaker - Maintaining NSR, no indication for PPM at this time - Will follow closely and monitor heart rate/rhy thm - PO lasix started per [facility] - Discharge to SNF pending - Ok to discharge from EP standpoint, no BB due to bradycardia - Will follow and adjust therapies as clinical c ourse dictates Consultants: anesthesiology, cardiology, cardiov ascular surgery, critical/ paper testing supervisor, hospitalist Code status: full code Plan discussed with: patient Edvin andersenArnie Robin 06/12/23 0928: Attestations Attestation needed: supervising physician Physician Attestation Agree w/findings plan: Patient seen and examined on 06/11/2023. I agree with the findings and plan as documented by Suzie Cooper NP. at 1153 at 0928 RPT #:[id number] END OF REPORT 2023-06-11 09:39:00-00:00 [facility] Hospitalist Progress Note REPORT#:[id number] REPORT STATUS: Signed DATE:06/11/23 TIME: 938 PATIENT: ODIN ZENG UNIT #: [id number] ROOM/BED: [place] [address] : 40 AGE: 83 SEX: M ATTEND: Ramo Sanchez MD ADM AUTHOR: Shane Willoughby NP * ALL edits or amendments must be made on the [employer]/computer document * Subjective Chief complaint: He is feeling better. His breathing is stable, on RA. Using IS. No Cp, fever, chills. BP is stable. Review of Systems Constitutional: Reports: fatigue, generalized weakness. Allergy/Immun: Denies: anaphylaxis, rhinorrhea, sneezing. ENT: Denies: earache, nasal conge stion, sinus problem, throat swelling, tongue pain. Respiratory: Denies: REYES (dyspnea on exer tion), non productive cough, parox nocturnal dyspnea , pleuritic pain, pneumonia, productive cough (s putum). Cardiovascular: Denies: REYES (dyspnea on exertion), orthopnea, pa lpitations, parox nocturnal dyspnea. GI: Denies: anorexia, GERD, hematochezia, hiatal her sal. : Denies: flank pain, nocturia, penile lesion, lucho ticular pain, testicular swelling. Musculoskeletal: Denies: extremity swelling, lumbar pain, myalgia s, neck pain. Heme: Denies: adenopathy, bleeding, bruising. Neuro: Denies: change in LOC, gait problem, headache, s eizure. Objective General VS/I O: Vital Signs: Date Time Temp Pulse Resp B/P B/P Pulse O2 O2 F low FiO2 Mean Ox Delivery Rate 06/11 0655 36.7 57 20 103/51 68.6 95 Room air 06/11 0400 62 26 113/59 83 97 06/11 0322 36.8 70 14 122/58 0.0 97 Room air 06/11 0000 75 29 106/51 74 95 06/10 2317 36.3 63 14 107/59 0.0 98 Room air 06/10 2300 74 117/61 80 96 06/10 2200 69 30 118/59 82 94 06/10 2100 68 119/57 80 95 06/10 2100 97 Room air 06/10 2000 76 109/58 84 95 06/10 1900 79 112/53 74 94 06/10 1852 36.9 73 14 113/54 0.0 95 Room air 06/10 1714 36.5 67 20 116/62 0.0 93 06/10 1700 72 47 116/62 82 96 06/10 1603 73 24 135/54 78 06/10 1500 66 22 96/52 71 100 06/10 1401 80 15 95/50 66 96 06/10 1300 64 20 123/81 95 95 06/10 1201 36.7 71 29 114/60 77 98 0 06/10 1118 63 35 138/65 93 99 06/10 1000 67 20 133/61 88 96 24 hour I O ending at 0700: 06/11 0700 06/10 1900 Intake Total 300 720 Output Total 900 3 Balance -600 717 Intake, Oral 300 720 Number 3 Bowel Movements Number Voids 1 Output, Urine 900 3 Patient 87.8 kg Weight Weight Standing scale Measurement Method PATIENT WEIGHT: Weight (lb): 193 Weight (oz): 9.05 Weight (kg): 87.800 Medications: Active Meds + DC'd Last 24 Hrs Furosemide (LASIX) 40 MG DAILY PO Furosemide (LASIX 20MG INJ) 20 MG ONCE ONE IV (D C) Sodium Chloride (SODIUM CHLORIDE) 10 ML ASDIR IV Amlodipine Besylate (NORVASC) 5 MG DAILY PO Tamsulosin HCl (Flomax 0.4 mg) 0.4 MG DAILY 1700 PO Amiodarone HCl (CORDARONE) 200 MG BID PO Insulin Glargine (Semglee) 10 UNIT BID SUBQ Ipratropium [place] (ATROVENT) 500 MCG RTQ2H PRN PRN INH Cyanocobalamin (Vitamin B-12 500 mcg tab) 500 MC G DAILY PO Ferrous Sulfate (FERROUS SULFATE) 325 MG DAILY P O Bisacodyl (DULCOLAX) 10 MG ONCE PRN RECTAL Magnesium Hydroxide (MILK OF MAGNESIA) 30 ML ONC E PRN PO Atorvastatin Calcium (LIPITOR) 40 MG 2100 PO Insulin Human Lispro (HUMALOG) 0 AC HS SUBQ Polyethylene Glycol (MIRALAX) 17 GM DAILY PO Tamsulosin HCl (Flomax 0.4 mg) 0.4 MG PC BK PO Levothyroxine Sodium (Synthroid) 75 MCG DAILY 06 00 PO Aspirin (ASPIRIN) 81 MG DAILY PO Docusate Sodium (COLACE) 100 MG BID PO Sennosides (Senna Lax 8.6 MG TABLET) 17.2 MG BED TIME PO Acetaminophen (TYLENOL) 650 MG Q4H PRN PRN PO Acetaminophen (TYLENOL) 650 MG Q4H PRN PRN RECTA L Calcium Chloride (CALCIUM CHLORIDE) 1 GM ASDIR P RN IV (DC) Dextrose/Water (DEXTROSE 10% IN WATER) 125 ML DIR PRN IV (CKD) Dextrose/Water (DEXTROSE 10% IN WATER) 250 ML DIR PRN IV (CKD) Epinephrine (ADRENALIN CHLORIDE) 4 MG ASDIR IV ( DC) Dextrose/Water (DEXTROSE 5% WATER) 246 ML Glucagon (GLUCAGON) 1 MG ASDIR PRN IM Insulin Human Regular (HumuLIN R) 100 UNIT ASDIR IV (DC) Sodium Chloride (SODIUM CHLORIDE 0.9%) 99 ML Magnesium Sulfate (MAGNESIUM SULFATE 4GM/SWFI 10 0ML) 100 ML ASDIR PRN IV Magnesium Sulfate (MAGNESIUM SULFATE 2GM/SWFI 50 ML) 50 ML ASDIR PRN IV Magnesium Sulfate/Dextrose (MAGNESIUM SULFATE 1G M/D5W 100ML) 100 ML ASDIR PRN IV Nitroglycerin/Dextrose (NITROGLYCERIN 50,000MCG/ D5W 250ML) 250 ML ASDIR IV (DC) Norepinephrine Bitartrate (NOREPINEPHRINE 8 MG/N S 250 ML) 250 ML TITRATE IV (DC) Ondansetron HCl (ZOFRAN) 4 MG Q6H PRN PRN IV Potassium Chloride (KCL 20MEQ/SWFI 100ML) 100 ML ASDIR PRN IV (DC) Sodium Bicarbonate (SODIUM BICARBONATE) 50 MEQ A SDIR PRN IV (DC) Sodium Chloride (SODIUM CHLORIDE) 20 ML ASDIR IV (DC) Lactated Ringer's (LACTATED RINGERS) 1,000 ML SD EOP ONCALL IV (DC) Lidocaine HCl (LIDOCAINE HCL/PF) 2 ML PREOP ONCA LL LOCAL (DC) Lidocaine HCl (LIDOCAINE HCL/PF) 2 ML PREOP ONCA LL LOCAL (DC) Sodium Chloride (SODIUM CHLORIDE 0.9%) 500 ML SD EOP ONCALL IV (DC) Sodium Chloride (SODIUM CHLORIDE 0.9%) 500 ML SD EOP ONCALL IV (DC) Sodium Chloride (SODIUM CHLORIDE 0.9%) 1,000 ML PREOP ONCALL IV (DC) Sodium Chloride (SODIUM CHLORIDE) 5 ML ASDIR PRN IV (DC) Sodium Chloride (SODIUM CHLORIDE) 10 ML ASDIR SD N IV (DC) Sodium Chloride (SODIUM CHLORIDE 0.9%) 250 ML DIR PRN IV (DC) Dietitian nutrition assessment The data set between the solid lines has been im ported from the dietitian's assessment. BMI Calculated: 29.4 Nutrition related diagnosis: Nutrition diagnosis details: Nutrition problem: Increased nutrient needs Nutrition etiology: Acute illness Nutrition signs and symptoms: HEALING NEEDS S/P SURGERY Nutrition prescription: 1. RECOMMEND CONTINUE CA RDIAC DIET, ADD EASY TO CHEW FOODS. 2. PROVIDE GLUCERNA TID WITH MEALS. 3. MO LISA PO, WT, LABS, BM. Dietitian name: Flores Velasco, DIET Assessment completed: 06/04/23 Physical Exam General appearance: alert, awake, oriented Head/Eyes: atraumatic, normocephalic, PERRLA Neck: full range of motion, non-tender, normal thyroid, supple/no meningismus, no bruit/NL carotids, no JVD Cardiovascular: normal capillary refill, normal heart sounds, regular rate rhythm Respiratory: aerating well, symmetric expansion, no distress Abdomen: non-tender, normal bowel sounds, soft Genitourinary: no bladder distention, no flank p ain, no urinary catheter Extremities: no calf tenderness, no clubbing, no cyanosis Musculoskeletal: no muscle spasm Neuro/CERTIFIED NURSES AIDE: alert, oriented X 3, CNII-XII intact Results Findings/Data: Laboratory Tests 06/11 06/11 06/10 06/10 06/10 0647 0500 1853 1704 1502 Chemistry Sodium (134 - 147 mEq/L) 135 Potassium (3.4 - 5.0 mEq/L) 3.8 Chloride (100 - 108 mEq/L) 104 Carbon Dioxide (21 - 33 mEq/l) 21 Anion Gap (0 - 20) 14 BUN (7 - 18 mg/dL) 10 Creatinine (0.6 - 1.3 mg/dL) 1.1 Glomerular Filtr Rate (70 - 80) 66.6 L Glucose (70 - 110 mg/dL) 130 H POC Glucose (70 - 110 MG/DL) 130 H 118 H 113 H 110 Calcium (8.0 - 10.5 mg/dL) 7.8 L 06/10 1117 Chemistry POC Glucose (70 - 110 MG/DL) 188 H Laboratory Tests 06/11 0500 Hematology WBC (4.5 - 11.0 x10 3/uL) 9.3 RBC (4.00 - 5.60 x10 6/uL) 2.93 L Hgb (12.5 - 16.9 g/dL) 8.9 L Hct (37.5 - 50.7 %) 27.8 L MCV (81.0 - 99.0 fL) 94.9 MCH (27.0 - 33.0 pg) 30.4 MCHC (33.0 - 37.0 g/dL) 32.0 L RDW (11.5 - 14.5 %) 15.8 H Plt Count (150 - 400 x10 3/uL) 279 MPV (7.0 - 9.0 fL) 10.3 H Neut % (Auto) (56.0 - 77.0 %) 62.2 Lymph % (Auto) (14.0 - 32.0 %) 23.8 [place] % (Auto) (4.8 - 9.0 %) 9.9 H Eos % (Auto) (0.3 - 3.7 %) 2.6 Baso % (Auto) (0.0 - 2.0 %) 0.3 Neut # (Auto) (2.0 - 7.6 x10 3/uL) 5.75 Lymph # (Auto) (1.0 - 3.8 x10 3/uL) 2.20 [place] # (Auto) (0.1 - 0.8 x10 3/uL) 0.92 H Eos # (Auto) (0.0 - 0.2 x10 3/uL) 0.24 H Baso # (Auto) (0.0 - 0.2 x10 3/uL) 0.03 Abs Immat Gran (auto) (0.00 - 0.03 x10 3/uL) 0. 11 H Add Manual Diff NO Immature Gran % (0.0 - 2.0 %) 1.2 Nucleated RBC % (0 - 0 %) 0.3 H Nucleated RBCs # (Man) (0.0 - 0.1 x10 3/uL) 0.0 3 Radiology data: Recent Impressions: RADIOLOGY - XR CHEST 1 V 06/11 0643 Report Impression - Status: SIGNED Entered: 06/11/2023 0823 IMPRESSION: Mild worsening opacities in both lung bases. Impression By: [email or web address] - Tom Bello M.D. Results: labs reviewed, vital signs reviewed, vi mercedes signs stable, x-ray personally reviewed, current med profile rev'd Treatment Prophylaxis Treatment Prophylaxis Oxygen: room air Diagnosis, Assessment Plan Hospital course to date: Assessment and Plan: - Mitral regurgitation/Paroxysmal atrial fibrill s/p Mitral valve replacement and Pulmonary vein isolation, Isolation of left atrial appendage. - CP and SOB due to MR. - HX of atrial fibrillation, status post failed ablation in the past, on Eliquis therapy, diabetes, hypothyroid. Plan: CVN1. Aggressive IS. Monitor Respiratory status, breathing tx, o2 sup port. Continue BB and Amiodarone, Lipitor. Pain meds. Antiemetics. Follow labs and replace as needed. SCDs for dVT ppx. Continue Monitor. Consultants: anesthesiology, cardiology, cardiov ascular surgery, critical/ paper testing supervisor, hospitalist Code status: full code Plan discussed with: patient, admitting physicia n, consultants, nurse Electronically Signed by Shane Willoughby NP on at 0940 RPT #:[id number] END OF REPORT 2023-06-11 08:47:00-00:00 [facility] Cardiothoracic [facility] Prog REPORT#:[id number] REPORT STATUS: Signed DATE:06/11/23 TIME: 0847 PATIENT: ODIN ZENG UNIT #: [id number] ROOM/BED: [place] [address] : 40 AGE: 83 SEX: M ATTEND: Ramo Sanchez MD ADM AUTHOR: Kerri Cassidy Physic * ALL edits or amendments must be made on the [employer]/computer document * General Post-op: day 8 Status post: 06/03/23 PROCEDURES: 1. Mitral valve replacement (29 Mitris valve). 2. Pulmonary vein isolation. 3. Isolation of left atrial appendage. Subjective Chief complaint: Resting comfortable. Denies compliants Review of Systems Constitutional: Denies: fatigue, fever. Skin: Denies: rash, swelling. Eyes: Denies: diplopia. ENT: Denies: hearing loss, mouth pain. Respiratory: Denies: REYES (dyspnea on exertion), SOB. Cardiovascular: Denies: chest pain, REYES (dyspnea on exertion). GI: Denies: constipation, diarrhea. Musculoskeletal: Denies: joint pain, joint swelling. Heme: Denies: bleeding, bruising. All systems rev neg: except as marked Objective Physical Exam Wound/incision: Location: Sternum clean and dry HEENT: mucosal membranes moist Neck: non-tender Cardiovascular: BP/pulses equal bilat. Respiratory: decreased breath sounds Abdomen: soft, non-tender Extremities: dry, moves all Musculoskeletal: full range of motion Neuro/CERTIFIED NURSES AIDE: alert, oriented X 3 Skin: dry Psychiatry: normal affect, normal mood Diagnosis, Assessment Plan Hospital course to date: This is an 83-year-old gentleman with a past [facility] history of atrial fibrillation, status post failed ablation in the past, on Eliquis therapy, diabetes, hypothyroid, who was found to have sig nificant mitral valve regurgitation with a flail mitral valve leaflet. He is followed by his custom grinder Dr. Lobito hernandez. He has an outpatient left heart catheterization scheduled in the near future. He denies any history of stroke, denies any hist ory of chest pains. He is on Eliquis therapy for his atrial fibrilla tion. Patient admitted for mitral valve replacement fo r flail mitral valve leaflet. Assessment/plan 1. Mitral valve regurgitation 2. Atrial fibrillation Patient is admitted for mitr al valve replacement with PVI, left atrial appendage amputation. This was discussed with the patient by Dr. Duong siddiqi. The risk of the operation including STS score, r isk of , bleeding, heart attack, stroke, renal failur e, dialysis, prolonged ICU stay, tracheostomy, need for long-term rehabilitation etc. was discussed with the patient in depth. Patient's questions were ans wered and the patient agreed to proceed with surgery 06/03/23 1. Mitral valve replacement (29 Mitris valve). 2. Pulmonary vein isolation. 3. Isolation of left atrial appendage. 06/04/23 POD 1 AAOx3 Respiratory: On room air 94% Encourage IS, Deep Breathing, CXR reviewed monitor chest tube drainage Cardiac: Atrial paced, baseline appears to be [place] junctional GI: +gas, Continue Bowel regimen : Hilario in place UO: 800 Continue PT/OT DVT prophylaxis, SCDs in place Labs reveiwed-hemoglobin low we will give 1 unit of blood Patient seen and examined by Dr. Sanchez. Plan o f care discussed with multidisciplinary team 06/05/23 POD 2 S/P MVR, PVI, ALAA AAOx3 Respiratory: On room air 94% Encourage IS, Deep Breathing, CXR reviewed DC chest tube, Cardiac: A Paced @ 80 with V conduction, underlying rate 50-60, Obtain 12 lead GI: Continue Bowel regimen UO: 600 Continue PT/OT DVT prophylaxis, SCDs in place Labs reveiwed Patient seen and examined by Dr. Sanchez. Plan o f care discussed with multidisciplinary team Dc neck line. continue supportive care. 06/06/23 POD 3 S/P MVR, PVI, ALAA AAOx3 Respiratory: On room air 94% Encourage IS, Deep Breathing, CXR reviewed Cardiac: A Paced @ 80 with u nderlying bradycardia, 40s, beta-raul on hold we will consult EP. GI: Continue Bowel regimen UO: 1650 Continue PT/OT DVT prophylaxis, SCDs in place Labs reveiwed Patient seen and examined by Dr. Sanchez. Plan o f care discussed with multidisciplinary team 06/07/23 POD 4 S/P MVR, PVI, ALAA AAOx3 Respiratory: On room air 94% Encourage IS, Deep Breathing, CXR reviewed Cardiac: A Paced @ 80 with underlying bradycardi a, 40s, beta-raul on hold. EP consulted GI: Continue Bowel regimen UO: 1325 Continue PT/OT DVT prophylaxis, SCDs in place Labs reveiwed Patient seen and examined by Dr. Sanchez. Plan o f care discussed with multidisciplinary team BEBETO Hilario today. Restart Flomax Appreciate EP input, continue ICU supportive car e 06/09/23 POD 6 S/P MVR, PVI, ALAA AAOx3 Respiratory: On room air 94% Encourage IS, Deep Breathing, CXR reviewed Cardiac: Appears junctional rhythm, rate 80s , w ill obtain EKG, EP following GI: Continue Bowel regimen UO: 725 Continue PT/OT DVT prophylaxis, SCDs in place Labs reveiwed Consult inpatient rehab Will obtain DVT studies Patient seen and examined by Dr. Sanchez. Plan o f care discussed with multidisciplinary team 06/10/23 POD 7 Patient recovering well, no complaints Labs and CXR reviewed On room air, encourage I-S use and mobilization Remains in acclerated junctional rhythm- 63 Tolerating cardiac diet, bowel regimen BLE venous dopplers negative for DVT Continue therapy with pt/ot Discharge planning rehab vs SNF Transfer to [facility] 1 06/11/23 Patient resting comfortable denies complaints AAOx3 Respiratory on room air Cardiac remains sinus rhythm, pacing wires on st [facility] GI:+ BM, continue bowel regimen Weight still up, continue diuretics. Started on p.o. Lasix Monitor labs Patient is pending SNF placement Patient was seen and examined by Dr. Nayeli mcmanus. Plan of care discussed with team Consultants: anesthesiology, cardiology, cardiov ascular surgery, critical/ paper testing supervisor, hospitalist at 1143 at 1304 RPT #:[id number] END OF REPORT 2023-06-10 12:22:00-00:00 [id number] [address] PATIENT NAME: ODIN ZENG ADMIT DATE: 06/03/23 ACCOUNT NO: [id number] ROOM NO: 3341 AGE: 83 REPORT TYPE: eELECTROCARDIOGRAM REPORT SEX: M ADMITTING PHYSICIAN:Abiodun Sanchez MD ATTENDING PHYSICIAN:Abiodun Sanchez MD Order: [id number] Test Reason : , Test Date/Time Stamp: SatJun 10 2023 12:22:41 Blood Pressure : / mmHG Vent. Rate : 074 BPM Atrial Rate : 000 BPM P-R Int : 000 ms QRS Dur : 080 ms QT Int : 416 ms P-R-T Axes : 000 062 137 degree s QTc Int : 461 ms Atrial fibrillation Low voltage QRS Nonspecific T wave abnormality Abnormal ECG When compared with ECG of 09-JUN-2023 11:26, Significant changes have occurred Confirmed by TOÑA BERTRAND ([id number]) on 3 8:09:01 AM Referred By: Avila Sanchez Confirmed by:TOÑA BERTRAND at 0809 PATIENT NAME: ODIN ZENG 1 2023-06-10 11:13:00-00:00 [facility] ([facility]) Hospitalist Progress Note REPORT#:[id number] REPORT STATUS: Signed DATE:06/10/23 TIME: 1113 PATIENT: ODIN ZENG UNIT #: [id number] ROOM/BED: [address] : 40 AGE: 83 SEX: M ATTEND: Ramo Sanchez MD ADM AUTHOR: Shane Willoughby BACK HOE OPERATOR * ALL edits or amendments must be made on the [employer]/computer document * Subjective Chief complaint: He had a episode of Low HR but now better. His breathing is stable, on RA. Using IS. No Cp, fever, chills. BP is stable. Review of Systems Constitutional: Reports: fatigue, generalized weakness. Allergy/Immun: Denies: anaphylaxis. ENT: Denies: earache, nasal congestion, sinus problem , tongue pain. Respiratory: Denies: hemoptysis, pleurisy, pneumonia, product jose martin cough (sputum). Cardiovascular: Denies: REYES (dyspnea on exertion), orthopnea, pa new nocturnal dyspnea. GI: Denies: anorexia, dysphagia, hiatal hernia, rect al pain. : Denies: flank pain, hematuria, penile discharge, testicular swelling. Musculoskeletal: Denies: extremity swelling, myalgias, thoracic p ain. Endocrine: Denies: heat intolerance, weight gain. Objective General VS/I O: Vital Signs: Date Time Temp Pulse Resp B/P B/P Pulse O2 O2 F low FiO2 Mean Ox Delivery Rate 06/10 0410 97 Room air 0 21 06/09 2111 97 Room air 0 21 06/09 2000 36.4 06/09 1800 65 122/61 85 97 06/09 1700 64 24 152/71 102 96 06/09 1600 36.7 06/09 1500 60 26 150/67 97 93 06/09 1400 59 29 136/61 88 91 06/09 1300 61 30 152/71 102 99 06/09 1201 61 20 132/59 85 95 06/09 1200 36.8 06/09 1200 61 21 90 24 hour I O ending at 0700: 06/10 0700 06/09 1900 Intake Total 580.00 700 Output Total 850 750 Balance -270.00 -50 Intake, IV 100.00 Intake, Oral 480 700 Output, Urine 850 750 Patient 84.1 kg Weight Weight Standing scale Measurement Method PATIENT WEIGHT: Weight (lb): 185 Weight (oz): 6.54 Weight (kg): 84.100 Medications: Active Meds + DC'd Last 24 Hrs Furosemide (LASIX) 40 MG DAILY PO (UNV) Furosemide (LASIX 20MG INJ) 20 MG ONCE ONE IV (U NV) Sodium Chloride (SODIUM CHLORIDE) 10 ML ASDIR IV Potassium Chloride (POTASSIUM CHLORIDE 20MEQ TAB .ER) 20 MEQ ONCE ONE PO (DC) Amlodipine Besylate (NORVASC) 5 MG DAILY PO Tamsulosin HCl (Flomax 0.4 mg) 0.4 MG DAILY 170 0 PO Amiodarone HCl (CORDARONE) 200 MG BID PO Insulin Glargine (Semglee) 10 UNIT BID SUBQ Ipratropium [place] (ATROVENT) 500 MCG RTQ2H PRN PRN INH Cyanocobalamin (Vitamin B-12 500 mcg tab) 500 MC G DAILY PO Ferrous Sulfate (FERROUS SULFATE) 325 MG DAILY P O Bisacodyl (DULCOLAX) 10 MG ONCE PRN RECTAL Magnesium Hydroxide (MILK OF MAGNESIA) 30 ML ONC E PRN PO Atorvastatin Calcium (LIPITOR) 40 MG 2100 PO Insulin Human Lispro (HUMALOG) 0 AC HS SUBQ Polyethylene Glycol (MIRALAX) 17 GM DAILY PO Tamsulosin HCl (Flomax 0.4 mg) 0.4 MG PC BK PO Levothyroxine Sodium (Synthroid) 75 MCG DAILY 06 00 PO Aspirin (ASPIRIN) 81 MG DAILY PO Docusate Sodium (COLACE) 100 MG BID PO Sennosides (Senna Lax 8.6 MG TABLET) 17.2 MG BED TIME PO Acetaminophen (TYLENOL) 650 MG Q4H PRN PRN PO Acetaminophen (TYLENOL) 650 MG Q4H PRN PRN RECTA L Calcium Chloride (CALCIUM CHLORIDE) 1 GM ASDIR P RN IV Dextrose/Water (DEXTROSE 10% IN WATER) 125 ML DIR PRN IV (CKD) Dextrose/Water (DEXTROSE 10% IN WATER) 250 ML DIR PRN IV (CKD) Epinephrine (ADRENALIN CHLORIDE) 4 MG ASDIR IV Dextrose/Water (DEXTROSE 5% WATER) 246 ML Glucagon (GLUCAGON) 1 MG ASDIR PRN IM Insulin Human Regular (HumuLIN R) 100 UNIT ASDIR IV (CKD) Sodium Chloride (SODIUM CHLORIDE 0.9%) 99 ML Magnesium Sulfate (MAGNESIUM SULFATE 4GM/SWFI 10 0ML) 100 ML ASDIR PRN IV Magnesium Sulfate (MAGNESIUM SULFATE 2GM/SWFI 50 ML) 50 ML ASDIR PRN IV Magnesium Sulfate/Dextrose (MAGNESIUM SULFATE 1G M/D5W 100ML) 100 ML ASDIR PRN IV Nitroglycerin/Dextrose (NITROGLYCERIN 50,000MCG/ D5W 250ML) 250 ML ASDIR IV Norepinephrine Bitartrate (NOREPINEPHRINE 8 MG/N S 250 ML) 250 ML TITRATE IV Ondansetron HCl (ZOFRAN) 4 MG Q6H PRN PRN IV Potassium Chloride (KCL 20MEQ/SWFI 100ML) 100 ML ASDIR PRN IV Sodium Bicarbonate (SODIUM BICARBONATE) 50 MEQ A SDIR PRN IV Sodium Chloride (SODIUM CHLORIDE) 20 ML ASDIR IV Lactated Ringer's (LACTATED RINGERS) 1,000 ML SD EOP ONCALL IV Lidocaine HCl (LIDOCAINE HCL/PF) 2 ML PREOP ONCA LL LOCAL Lidocaine HCl (LIDOCAINE HCL/PF) 2 ML PREOP ONCA LL LOCAL Sodium Chloride (SODIUM CHLORIDE 0.9%) 500 ML SD EOP ONCALL IV Sodium Chloride (SODIUM CHLORIDE 0.9%) 500 ML SD EOP ONCALL IV Sodium Chloride (SODIUM CHLORIDE 0.9%) 1,000 ML PREOP ONCALL IV Sodium Chloride (SODIUM CHLORIDE) 5 ML ASDIR PRN IV Sodium Chloride (SODIUM CHLORIDE) 10 ML ASDIR SD N IV Sodium Chloride (SODIUM CHLORIDE 0.9%) 250 ML DIR PRN IV Dietitian nutrition assessment The data set between the solid lines has been im ported from the dietitian's assessment. BMI Calculated: 28.2 Nutrition related diagnosis: Nutrition diagnosis details: Nutrition problem: Increased nutrient needs Nutrition etiology: Acute illness Nutrition signs and symptoms: HEALING NEEDS S/P SURGERY Nutrition prescription: 1. RECOMMEND CONTINUE CA RDIAC DIET, ADD EASY TO CHEW FOODS. 2. PROVIDE GLUCERNA TID WITH MEALS. 3. MO NITOR PO, WT, LABS, BM. Dietitian name: Flores Velasco, DIET Assessment completed: 06/04/23 Physical Exam General appearance: alert, awake, oriented Head/Eyes: atraumatic, normocephalic, PERRLA Neck: full range of motion, non-tender, normal thyroid, supple/no meningismus, no bruit/NL carotids, no JVD Cardiovascular: normal capillary refill, normal heart sounds, regular rate rhythm Respiratory: aerating well, symmetric expansion, no distress Abdomen: non-tender, normal bowel sounds, soft Genitourinary: no bladder distention, no flank p ain, no urinary catheter Extremities: no calf tenderness, no clubbing, no cyanosis Musculoskeletal: no muscle spasm Neuro/CERTIFIED NURSES AIDE: alert, oriented X 3, CNII-XII intact Results Findings/Data: Laboratory Tests 06/10 06/10 06/09 06/09 06/09 0813 0213 2044 1643 1121 Chemistry Sodium (134 - 147 mEq/L) 138 Potassium (3.4 - 5.0 mEq/L) 3.7 Chloride (100 - 108 mEq/L) 105 Carbon Dioxide (21 - 33 mEq/l) 26 Anion Gap (0 - 20) 10 BUN (7 - 18 mg/dL) 12 Creatinine (0.6 - 1.3 mg/dL) 0.9 Glomerular Filtr Rate (70 - 80) 84.7 H Glucose (70 - 110 mg/dL) 142 H POC Glucose (70 - 110 MG/DL) 137 H 186 H 100 15 3 H Calcium (8.0 - 10.5 mg/dL) 7.9 L Magnesium (1.80 - 2.40 mg/dL) 2.04 Laboratory Tests 06/10 0213 Hematology WBC (4.5 - 11.0 x10 3/uL) 10.0 RBC (4.00 - 5.60 x10 6/uL) 2.79 L Hgb (12.5 - 16.9 g/dL) 8.5 L Hct (37.5 - 50.7 %) 25.9 L MCV (81.0 - 99.0 fL) 92.8 MCH (27.0 - 33.0 pg) 30.5 MCHC (33.0 - 37.0 g/dL) 32.8 L RDW (11.5 - 14.5 %) 15.0 H Plt Count (150 - 400 x10 3/uL) 202 MPV (7.0 - 9.0 fL) 10.1 H Neut % (Auto) (56.0 - 77.0 %) 70.9 Lymph % (Auto) (14.0 - 32.0 %) 15.2 [place] % (Auto) (4.8 - 9.0 %) 9.3 H Eos % (Auto) (0.3 - 3.7 %) 2.9 Baso % (Auto) (0.0 - 2.0 %) 0.3 Neut # (Auto) (2.0 - 7.6 x10 3/uL) 7.09 Lymph # (Auto) (1.0 - 3.8 x10 3/uL) 1.52 [place] # (Auto) (0.1 - 0.8 x10 3/uL) 0.93 H Eos # (Auto) (0.0 - 0.2 x10 3/uL) 0.29 H Baso # (Auto) (0.0 - 0.2 x10 3/uL) 0.03 Abs Immat Gran (auto) (0.00 - 0.03 x10 3/uL) 0. 14 H Add Manual Diff NO Immature Gran % (0.0 - 2.0 %) 1.4 Nucleated RBC % (0 - 0 %) 0.4 H Nucleated RBCs # (Man) (0.0 - 0.1 x10 3/uL) 0.0 4 Radiology data: Recent Impressions: ULTRASOUND - DUP VEIN ASIM 06/09 1505 Report Impression - Status: SIGNED Entered: 06/09/2023 1512 IMPRESSION: No evidence of deep vein thrombosis. Impression By: Brent - Lars Rodriguez RADIOLOGY - XR CHEST 1 V 06/10 0513 Report Impression - Status: SIGNED Entered: 06/10/2023 0700 IMPRESSION: 1. Increased vascular congestion and interstitia l edema. 2. Increased bibasilar atelectasis/infiltrates. Impression By: [email or web address] - Trev Jean-Baptiste Results: labs reviewed, vital signs reviewed, vi mercedes signs stable, current med profile rev'd Treatment Prophylaxis Treatment Prophylaxis Oxygen: room air Diagnosis, Assessment Plan Hospital course to date: Assessment and Plan: - Mitral regurgitation/Paroxysmal atrial fibrill s/p Mitral valve replacement and Pulmonary vein isolation, Isolation of left atrial appendage. - CP and SOB due to MR. - HX of atrial fibrillation, status post failed ablation in the past, on Eliquis therapy, diabetes, hypothyroid. Plan: CVICU. Aggressive IS. Monitor Respiratory status, breathing tx, o2 sup port. Continue BB and Amiodarone, Lipitor. Pain meds. Antiemetics. Follow labs and replace as needed. SCDs for dVT ppx. Continue Monitor. Consultants: anesthesiology, cardiology, cardiov ascular surgery, critical/ paper testing supervisor, hospitalist Code status: full code Plan discussed with: patient, admitting physicia n, consultants, nurse Electronically Signed by Shane Willoughby NP on at 1129 RPT #:[id number] END OF REPORT 2023-06-10 09:15:00-00:00 [facility] Cardiothoracic [facility] Prog REPORT#:[id number] REPORT STATUS: Signed DATE:06/10/23 TIME: 914 PATIENT: ODIN ZENG UNIT #: [id number] ROOM/BED: [place] [address] : 40 AGE: 83 SEX: M ATTEND: Ramo Sanchez MD ADM AUTHOR: Abiodun Sanchez * ALL edits or amendments must be made on the [employer]/computer document * General Post-op: day 7 Status post: 06/03/23 PROCEDURES: 1. Mitral valve replacement (29 Mitris valve). 2. Pulmonary vein isolation. 3. Isolation of left atrial appendage. Subjective Chief complaint: Resting comfortable. Denies compliants Review of Systems Constitutional: Denies: fatigue, fever. Skin: Denies: rash, swelling. Eyes: Denies: diplopia. ENT: Denies: hearing loss, mouth pain. Respiratory: Denies: REYES (dyspnea on exertion), SOB. Cardiovascular: Denies: chest pain, REYES (dyspnea on exertion). GI: Denies: constipation, diarrhea. Musculoskeletal: Denies: joint pain, joint swelling. Heme: Denies: bleeding, bruising. All systems rev neg: except as marked Objective General VS/I O Last Documented: Result Date Time Pulse Ox 97 06/10 0410 FiO2 21 06/10 0410 O2 Delivery Room air 06/10 0410 O2 Flow Rate 0 06/10 0410 Temp 36.4 06/09 2000 B/P 122/61 06/09 1800 B/P Mean 85 06/09 1800 Pulse 65 06/09 1800 Resp 24 06/09 1700 24 hour I O ending at 0700: 06/10 0700 06/09 1900 Intake Total 580.00 700 Output Total 850 750 Balance -270.00 -50 Intake, IV 100.00 Intake, Oral 480 700 Output, Urine 850 750 Patient 84.1 kg Weight Weight Standing scale Measurement Method PATIENT WEIGHT: Weight (lb): 185 Weight (oz): 6.54 Weight (kg): 84.100 Dietitian Nutrition assessment The data set between the solid lines has been im ported from the dietitian's assessment. BMI Calculated: 28.2 Nutrition related diagnosis: Nutrition diagnosis details: Nutrition problem: Increased nutrient needs Nutrition etiology: Acute illness Nutrition signs and symptoms: HEALING NEEDS S/P SURGERY Nutrition prescription: 1. RECOMMEND CONTINUE CA RDIAC DIET, ADD EASY TO CHEW FOODS. 2. PROVIDE GLUCERNA TID WITH MEALS. 3. MO NITOR PO, WT, LABS, BM. Dietitian name: Flores Velasco, DIET Assessment completed: 06/04/23 Physical Exam General appearance: alert, awake, oriented Wound/incision: Location: Sternum clean and dry HEENT: mucosal membranes moist Neck: non-tender Cardiovascular: BP/pulses equal bilat. Respiratory: decreased breath sounds Abdomen: soft, non-tender Extremities: dry, moves all Musculoskeletal: full range of motion Neuro/CERTIFIED NURSES AIDE: alert, oriented X 3 Skin: dry Psychiatry: normal affect, normal mood Current Medications Medications: Active Meds + DC'd Last 24 Hrs Sodium Chloride (SODIUM CHLORIDE) 10 ML ASDIR IV (UNV) Potassium Chloride (POTASSIUM CHLORIDE 20MEQ TAB .ER) 20 MEQ ONCE ONE PO (DC) Amlodipine Besylate (NORVASC) 5 MG DAILY PO Tamsulosin HCl (Flomax 0.4 mg) 0.4 MG DAILY 1700 PO Amiodarone HCl (CORDARONE) 200 MG BID PO Insulin Glargine (Semglee) 10 UNIT BID SUBQ Ipratropium [place] (ATROVENT) 500 MCG RTQ2H PRN PRN INH Cyanocobalamin (Vitamin B-12 500 mcg tab) 500 MC G DAILY PO Ferrous Sulfate (FERROUS SULFATE) 325 MG DAILY PO Bisacodyl (DULCOLAX) 10 MG ONCE PRN RECTAL Magnesium Hydroxide (MILK OF MAGNESIA) 30 ML ONC E PRN PO Atorvastatin Calcium (LIPITOR) 40 MG 2100 PO Insulin Human Lispro (HUMALOG) 0 AC HS SUBQ Polyethylene Glycol (MIRALAX) 17 GM DAILY PO Tamsulosin HCl (Flomax 0.4 mg) 0.4 MG PC BK PO Levothyroxine Sodium (Synthroid) 75 MCG DAILY 06 00 PO Aspirin (ASPIRIN) 81 MG DAILY PO Docusate Sodium (COLACE) 100 MG BID PO Sennosides (Senna Lax 8.6 MG TABLET) 17.2 MG BED TIME PO Acetaminophen (TYLENOL) 650 MG Q4H PRN PRN PO Acetaminophen (TYLENOL) 650 MG Q4H PRN PRN RECTA L Calcium Chloride (CALCIUM CHLORIDE) 1 GM ASDIR P RN IV Dextrose/Water (DEXTROSE 10% IN WATER) 125 ML DIR PRN IV (CKD) Dextrose/Water (DEXTROSE 10% IN WATER) 250 ML DIR PRN IV (CKD) Epinephrine (ADRENALIN CHLORIDE) 4 MG ASDIR IV Dextrose/Water (DEXTROSE 5% WATER) 246 ML Glucagon (GLUCAGON) 1 MG ASDIR PRN IM Insulin Human Regular (HumuLIN R) 100 UNIT ASDI R IV (CKD) Sodium Chloride (SODIUM CHLORIDE 0.9%) 99 ML Magnesium Sulfate (MAGNESIUM SULFATE 4GM/SWFI 10 0ML) 100 ML ASDIR PRN IV Magnesium Sulfate (MAGNESIUM SULFATE 2GM/SWFI 50 ML) 50 ML ASDIR PRN IV Magnesium Sulfate/Dextrose (MAGNESIUM SULFATE 1G M/D5W 100ML) 100 ML ASDIR PRN IV Nitroglycerin/Dextrose (NITROGLYCERIN 50,000MCG/ D5W 250ML) 250 ML ASDIR IV Norepinephrine Bitartrate (NOREPINEPHRINE 8 MG/N S 250 ML) 250 ML TITRATE IV Ondansetron HCl (ZOFRAN) 4 MG Q6H PRN PRN IV Potassium Chloride (KCL 20MEQ/SWFI 100ML) 100 ML ASDIR PRN IV Sodium Bicarbonate (SODIUM BICARBONATE) 50 MEQ A SDIR PRN IV Sodium Chloride (SODIUM CHLORIDE) 20 ML ASDIR IV Lactated Ringer's (LACTATED RINGERS) 1,000 ML SD EOP ONCALL IV Lidocaine HCl (LIDOCAINE HCL/PF) 2 ML PREOP ONCA LL LOCAL Lidocaine HCl (LIDOCAINE HCL/PF) 2 ML PREOP ONCA LL LOCAL Sodium Chloride (SODIUM CHLORIDE 0.9%) 500 ML SD EOP ONCALL IV Sodium Chloride (SODIUM CHLORIDE 0.9%) 500 ML SD EOP ONCALL IV Sodium Chloride (SODIUM CHLORIDE 0.9%) 1,000 ML PREOP ONCALL IV Sodium Chloride (SODIUM CHLORIDE) 5 ML ASDIR PRN IV Sodium Chloride (SODIUM CHLORIDE) 10 ML ASDIR SD N IV Sodium Chloride (SODIUM CHLORIDE 0.9%) 250 ML DIR PRN IV Results Findings/Data: Laboratory Tests 06/10 06/10 06/09 06/09 06/09 0813 0213 2044 1643 1121 Chemistry Sodium (134 - 147 mEq/L) 138 Potassium (3.4 - 5.0 mEq/L) 3.7 Chloride (100 - 108 mEq/L) 105 Carbon Dioxide (21 - 33 mEq/l) 26 Anion Gap (0 - 20) 10 BUN (7 - 18 mg/dL) 12 Creatinine (0.6 - 1.3 mg/dL) 0.9 Glomerular Filtr Rate (70 - 80) 84.7 H Glucose (70 - 110 mg/dL) 142 H POC Glucose (70 - 110 MG/DL) 137 H 186 H 100 15 3 H Calcium (8.0 - 10.5 mg/dL) 7.9 L Magnesium (1.80 - 2.40 mg/dL) 2.04 Laboratory Tests 06/10 213 Hematology WBC (4.5 - 11.0 x10 3/uL) 10.0 RBC (4.00 - 5.60 x10 6/uL) 2.79 L Hgb (12.5 - 16.9 g/dL) 8.5 L Hct (37.5 - 50.7 %) 25.9 L MCV (81.0 - 99.0 fL) 92.8 MCH (27.0 - 33.0 pg) 30.5 MCHC (33.0 - 37.0 g/dL) 32.8 L RDW (11.5 - 14.5 %) 15.0 H Plt Count (150 - 400 x10 3/uL) 202 MPV (7.0 - 9.0 fL) 10.1 H Neut % (Auto) (56.0 - 77.0 %) 70.9 Lymph % (Auto) (14.0 - 32.0 %) 15.2 [place] % (Auto) (4.8 - 9.0 %) 9.3 H Eos % (Auto) (0.3 - 3.7 %) 2.9 Baso % (Auto) (0.0 - 2.0 %) 0.3 Neut # (Auto) (2.0 - 7.6 x10 3/uL) 7.09 Lymph # (Auto) (1.0 - 3.8 x10 3/uL) 1.52 [place] # (Auto) (0.1 - 0.8 x10 3/uL) 0.93 H Eos # (Auto) (0.0 - 0.2 x10 3/uL) 0.29 H Baso # (Auto) (0.0 - 0.2 x10 3/uL) 0.03 Abs Immat Gran (auto) (0.00 - 0.03 x10 3/uL) 0. 14 H Add Manual Diff NO Immature Gran % (0.0 - 2.0 %) 1.4 Nucleated RBC % (0 - 0 %) 0.4 H Nucleated RBCs # (Man) (0.0 - 0.1 x10 3/uL) 0.0 4 Radiology data: Recent Impressions: ULTRASOUND - DUP VEIN ASIM 06/09 1505 Report Impression - Status: SIGNED Entered: 06/09/2023 1512 IMPRESSION: No evidence of deep vein thrombosis. Impression By: Brent - Lars Rodriguez RADIOLOGY - XR CHEST 1 V 06/10 0513 Report Impression - Status: SIGNED Entered: 06/10/2023 0700 IMPRESSION: 1. Increased vascular congestion and interstitia l edema. 2. Increased bibasilar atelectasis/infiltrates. Impression By: [email or web address] - Trev Jean-Baptiste Results: labs reviewed, vital signs stable, ondina esquivel personally rev'd, x-ray personally reviewed, current med profile rev'd Diagnosis, Assessment Plan Hospital course to date: This is an 83-year-old gentleman with a past med ical history of atrial fibrillation, status post failed ablation in the past, on Eliquis therapy, diabetes, hypothyroid, who was found to have sig nificant mitral valve regurgitation with a flail mitral valve leaflet. He is followed by his custom grinder Dr. Lobito hernandez. He has an outpatient left heart catheterization scheduled in the near future. He denies any history of stroke, denies any hist ory of chest pains. He is on Eliquis therapy for his atrial fibrilla tion. Patient admitted for mitral valve replacement fo r flail mitral valve leaflet. Assessment/plan 1. Mitral valve regurgitation 2. Atrial fibrillation Patient is admitted for mitr al valve replacement with PVI, left atrial appendage amputation. This was discussed with the patient by Dr. Duong siddiqi. The risk of the operation including STS score, r isk of , bleeding, heart attack, stroke, renal failur e, dialysis, prolonged ICU stay, tracheostomy, need for long-term rehabilitation etc. was discussed with the patient in depth. Patient's questions were ans wered and the patient agreed to proceed with surgery 06/03/23 1. Mitral valve replacement (29 Mitris valve). 2. Pulmonary vein isolation. 3. Isolation of left atrial appendage. 06/04/23 POD 1 AAOx3 Respiratory: On room air 94% Encourage IS, Deep Breathing, CXR reviewed monitor chest tube drainage Cardiac: Atrial paced, baseline appears to be es cape junctional GI: +gas, Continue Bowel regimen : Hilario in place UO: 800 Continue PT/OT DVT prophylaxis, SCDs in place Labs reveiwed-hemoglobin low we will give 1 unit of blood Patient seen and examined by Dr. Sanchez. Plan o f care discussed with multidisciplinary team 06/05/23 POD 2 S/P MVR, PVI, ALAA AAOx3 Respiratory: On room air 94% Encourage IS, Deep Breathing, CXR reviewed DC chest tube, Cardiac: A Paced @ 80 with V conduction, underlying rate 50-60, Obtain 12 lead GI: Continue Bowel regimen UO: 600 Continue PT/OT DVT prophylaxis, SCDs in place Labs reveiwed Patient seen and examined by Dr. Sanchez. Plan o f care discussed with multidisciplinary team Dc neck line. continue supportive care. 06/06/23 POD 3 S/P MVR, PVI, ALAA AAOx3 Respiratory: On room air 94% Encourage IS, Deep Breathing, CXR reviewed Cardiac: A Paced @ 80 with u nderlying bradycardia, 40s, beta-raul on hold we will consult EP. GI: Continue Bowel regimen UO: 1650 Continue PT/OT DVT prophylaxis, SCDs in place Labs reveiwed Patient seen and examined by Dr. Sanchez. Plan o f care discussed with multidisciplinary team 06/07/23 POD 4 S/P MVR, PVI, ALAA AAOx3 Respiratory: On room air 94% Encourage IS, Deep Breathing, CXR reviewed Cardiac: A Paced @ 80 with underlying bradycardi a, 40s, beta-raul on hold. EP consulted GI: Continue Bowel regimen UO: 1325 Continue PT/OT DVT prophylaxis, SCDs in place Labs reveiwed Patient seen and examined by Dr. Sanchez. Plan o f care discussed with multidisciplinary team BEBETO Hilario today. Restart Flomax Appreciate EP input, continue ICU supportive car e 06/09/23 POD 6 S/P MVR, PVI, ALAA AAOx3 Respiratory: On room air 94% Encourage IS, Deep Breathing, CXR reviewed Cardiac: Appears junctional rhythm, rate 80s , w ill obtain EKG, EP following GI: Continue Bowel regimen UO: 725 Continue PT/OT DVT prophylaxis, SCDs in place Labs reveiwed Consult inpatient rehab Will obtain DVT studies Patient seen and examined by Dr. Sanchez. Plan o f care discussed with multidisciplinary team 06/10/23 POD 7 Patient recovering well, no complaints Labs and CXR reviewed On room air, encourage I-S use and mobilization Remains in acclerated junctional rhythm- 63 Tolerating cardiac diet, bowel regimen BLE venous dopplers negative for DVT Continue therapy with pt/ot Discharge planning rehab vs SNF Transfer to [facility] 1 Consultants: anesthesiology, cardiology, cardiov ascular surgery, critical/ paper testing supervisor, hospitalist at 1304 RPT #:[id number] END OF REPORT 2023-06-10 09:07:00-00:00 [facility] ([facility]) EP Progress Note REPORT#:[id number] REPORT STATUS: Signed DATE:06/10/23 TIME: 906 PATIENT: ODIN ZENG UNIT #: [id number] ROOM/BED: [place] [address] : 40 AGE: 83 SEX: M ATTEND: Ramo Sanchez MD ADM AUTHOR: Suzie Cooper BACK HOE OPERATOR * ALL edits or amendments must be made on the [employer]/computer document * Marita Cooper 06/10/23 0907: Subjective Chief complaint: Patient states he is feeling better OOB in chair Denies CP, palpitations, SOB Patient reports: No: complaints. Nursing reports: No: complaints. Objective General VS/I O Laboratory Tests 06/10/23 0213: [Embedded Image Not Available] Current Medications Sig/Stephanie Start time Last Medication Dose Route Stop Time Status Admin Potassium Chloride 20 MEQ ONCE ONE 06/10 06 D C 06/10 PO 06/10 0601 0526 Amlodipine Besylate 5 MG DAILY 06/09 1115 AC PO 07/09 1114 0858 Tamsulosin HCl 0.4 MG DAILY 1700 06/08 1700 AC 06/09 PO 07/08 165 1748 Amiodarone HCl 200 MG BID 06/06 2100 AC 06/10 PO 07/06 2059 0858 Insulin Glargine 10 UNIT BID 06/06 2100 AC 05/19 4 SUBQ 07/06 2059 0859 Ipratropium [place] 500 MCG RTQ2H PRN PRN 06/06 1521 AC 06/09 INH 07/06 1520 0358 Cyanocobalamin 500 MCG DAILY 06/06 09 AC 05/19 4 PO 07/06 0859 0858 Ferrous Sulfate 325 MG DAILY 06/06 09 AC 05/19 4 PO 07/06 0859 0857 Bisacodyl 10 MG ONCE PRN 06/05 1200 AC RECTAL 07/05 1159 Magnesium Hydroxide 30 ML ONCE PRN 06/05 1200 A C PO Atorvastatin Calcium 40 MG 2100 06/04 2100 AC 0 06/09 PO 07/04 2059 204 Insulin Human Lispro 0 AC HS 06/04 1130 AC 05/19 3 SUBQ 07/04 1129 1205 Polyethylene Glycol 17 GM DAILY 06/04 09 AC 0 06/08 PO 07/04 0859 0744 Tamsulosin HCl 0.4 MG PC BK 06/04 0900 AC 07 4 PO 07/04 0859 0857 Levothyroxine Sodium 75 MCG DAILY 0606/04 06 16 AC 06/10 PO 07/04 0615 0526 Aspirin 81 MG DAILY 06/03 2121 AC 06/10 PO 07/03 2120 0857 Docusate Sodium 100 MG BID 06/03 2100 AC 06/10 PO 07/03 2059 0858 Sennosides 17.2 MG BEDTIME 06/03 2100 AC 06/04 PO 07/03 2059 195 Acetaminophen 650 MG Q4H PRN PRN 06/03 1530 AC 06/10 PO 07/03 1529 0624 Acetaminophen 650 MG Q4H PRN PRN 06/03 1530 AC RECTAL 07/03 1529 Calcium Chloride 1 GM ASDIR PRN 06/03 1530 AC IV 07/03 1529 Dextrose/Water 125 ML ASDIR PRN 06/03 1530 CKD IV 07/03 1529 Dextrose/Water 250 ML ASDIR PRN 06/03 1530 CKD IV 07/03 1529 Epinephrine 4 MG ASDIR 06/03 1530 AC Dextrose/Water 246 ML IV 07/03 1529 Glucagon 1 MG ASDIR PRN 06/03 1530 AC IM 07/03 1529 Insulin Human Regular 100 UNIT ASDIR 06/03 1530 CKD Sodium Chloride 99 ML IV 07/03 1529 Magnesium Sulfate 100 ML ASDIR PRN 06/03 1530 A C IV 07/03 1529 Magnesium Sulfate 50 ML ASDIR PRN 06/03 1530 AC IV 07/03 1529 Magnesium Sulfate/ 100 ML ASDIR PRN 06/03 1530 AC 06/10 Dextrose IV 07/03 1529 0402 Nitroglycerin/ 250 ML ASDIR 06/03 1530 AC Dextrose IV 07/03 1529 Norepinephrine 250 ML TITRATE 06/03 1530 AC Bitartrate IV 07/03 1529 Ondansetron HCl 4 MG Q6H PRN PRN 06/03 1530 AC IV 07/03 1529 Potassium Chloride 100 ML ASDIR PRN 06/03 1530 AC 06/03 IV 07/03 1529 2258 Sodium Bicarbonate 50 MEQ ASDIR PRN 06/03 1530 AC 06/03 IV 07/03 1529 1731 Sodium Chloride 20 ML ASDIR 06/03 1145 AC IV 07/03 1144 Lactated Ringer's 1,000 ML PREOP ONCALL 05/31 1 615 AC IV 06/30 2359 Lidocaine HCl 2 ML PREOP ONCALL 05/31 1615 AC LOCAL 06/30 2359 Lidocaine HCl 2 ML PREOP ONCALL 05/31 1615 AC LOCAL 06/30 2359 Sodium Chloride 500 ML PREOP ONCALL 05/31 1615 AC IV 06/30 2359 Sodium Chloride 500 ML PREOP ONCALL 05/31 1615 AC IV 06/30 2359 Sodium Chloride 1,000 ML PREOP ONCALL 05/31 161 5 AC IV 06/30 2359 Sodium Chloride 5 ML ASDIR PRN 05/31 1615 AC IV 06/30 1614 Sodium Chloride 10 ML ASDIR PRN 05/31 1615 AC IV 06/30 1614 Sodium Chloride 250 ML ASDIR PRN 05/31 1615 AC IV 06/30 1614 Last Documented: Result Date Time Pulse Ox 97 06/10 0410 FiO2 21 06/10 0410 O2 Delivery Room air 06/10 0410 O2 Flow Rate 0 06/10 0410 Temp 36.4 06/09 2000 B/P 122/61 06/09 1800 B/P Mean 85 06/09 1800 Pulse 65 06/09 1800 Resp 24 06/09 1700 24 hour I O ending at 0700: 06/10 0700 06/09 1900 Intake Total 580.00 700 Output Total 850 750 Balance -270.00 -50 Intake, IV 100.00 Intake, Oral 480 700 Output, Urine 850 750 Patient 84.1 kg Weight Weight Standing scale Measurement Method PATIENT WEIGHT: Weight (lb): 185 Weight (oz): 6.54 Weight (kg): 84.100 Physical Exam General appearance: alert, awake, oriented, no a cute distress, no respiratory distress HEENT: mucosal membranes moist Neck: full range of motion, non-tender Cardiovascular: CV assessment: regular rate and rhythm, pedal p ulses present Respiratory: decreased breath sounds, no distres s Abdomen: soft, normal bowel sounds Genitourinary: no flank pain Extremities: edema, dry, moves all Musculoskeletal: normal inspection Neuro/CERTIFIED NURSES AIDE: alert, oriented X 3, normal speech Skin: dry, intact Psychiatry: normal affect EKG Interpretation: normal sinus rhythm, 1st deg ree AV block Treatment Prophylaxis Treatment Prophylaxis Oxygen: room air Diagnosis, Assessment Plan Free Text A P: Assessment: 1. Symptomatic bradycardia/sick sinus sydrome - EKG showed accelerated junctional rhythm rate 70 - BP stable - Discontinue BB, decrease amiodarone - On tele, NSR 60-70s - Patient awake, alert, OOB in chair - Denies CP, SOB, palpitations 2. Junctional rhythm 3. Severe mitral valve prola pse s/p Mitral Valve Replacement, PVI, Isolation FLEX 06/03/2023 4. Atrial fibrillation s/p PVI and ALAA 5. CAD, non-obstructive Plan/recommendations: - Continuous tele monitoring - AVOID AV rubi blocking agents - Decrease amiodarone dose - Post-op care per CVS team - If no improvement with heart rate/rhythm may n eed pacemaker - Back in NSR, conintue holding BBs - Maintaining NSR, no indication for PPM at this time - Will follow closely and monitor heart rate/rhy thm - Will follow and adjust therapies as clinical c ourse dictates Consultants: anesthesiology, cardiology, cardiov ascular surgery, critical/ paper testing supervisor, hospitalist Code status: full code Plan discussed with: patient Arnie Payne 06/12/23 0932: Attestations Attestation needed: supervising physician Physician Attestation Agree w/findings plan: Patient seen and examined on 06/10/2023. I agree with the findings and plan as documented by Suzie Cooper NP. at 1422 at 0933 RPT #:[id number] END OF REPORT 2023-06-10 06:34:00-00:00 [facility] Progress Note REPORT#:[id number] REPORT STATUS: Signed DATE:06/10/23 TIME: 0634 PATIENT: ODIN ZENG UNIT #: [id number] ROOM/BED: [place] [id number] : 40 AGE: 83 SEX: M ATTEND: Ramo Sanchez MD ADM AUTHOR: Chuy Andrew * ALL edits or amendments must be made on the [employer]/computer document * Subjective Chief complaint: PMR follow-up NAD Feels okay Fatigues easily Denies ALBERTO/N/V/D/CP 14 systems reviewed and neg. except that above. Objective General VS: Vital Signs: Date Time Temp Pulse Resp B/P B/P Pulse O2 O2 F low FiO2 Mean Ox Delivery Rate 06/10 0410 97 Room air 0 21 06/09 2111 97 Room air 0 21 06/09 2000 97.6 06/09 1800 65 122/61 85 97 06/09 1700 64 24 152/71 102 96 06/09 1600 98.1 06/09 1500 60 26 150/67 97 93 06/09 1400 59 29 136/61 88 91 06/09 1300 61 30 152/71 102 99 06/09 1201 61 20 132/59 85 95 06/09 1200 98.2 06/09 1200 61 21 90 06/09 1102 77 202/93 134 99 06/09 1100 84 94 06/09 1000 57 15 94 06/09 0900 62 18 162/74 106 92 06/09 0803 98 Room air 06/09 0800 98.0 06/09 0800 64 40 147/64 92 90 06/09 0700 53 20 96 PATIENT WEIGHT: Weight (lb): 185 Weight (oz): 3.01 Weight (kg): 84.000 Medications: Active Meds + DC'd Last 24 Hrs Potassium Chloride (POTASSIUM CHLORIDE 20MEQ TAB .ER) 20 MEQ ONCE ONE PO (DC) Amlodipine Besylate (NORVASC) 5 MG DAILY PO Potassium Chloride (POTASSIUM CHLORIDE 20MEQ TAB .ER) 20 MEQ ONCE ONE PO (DC) Tamsulosin HCl (Flomax 0.4 mg) 0.4 MG DAILY 1700 PO Amiodarone HCl (CORDARONE) 200 MG BID PO Insulin Glargine (Semglee) 10 UNIT BID SUBQ Ipratropium [place] (ATROVENT) 500 MCG RTQ2H PRN PRN INH Cyanocobalamin (Vitamin B-12 500 mcg tab) 500 MC G DAILY PO Ferrous Sulfate (FERROUS SULFATE) 325 MG DAILY P O Bisacodyl (DULCOLAX) 10 MG ONCE PRN RECTAL Magnesium Hydroxide (MILK OF MAGNESIA) 30 ML ONC E PRN PO Atorvastatin Calcium (LIPITOR) 40 MG 2100 PO Insulin Human Lispro (HUMALOG) 0 AC HS SUBQ Polyethylene Glycol (MIRALAX) 17 GM DAILY PO Tamsulosin HCl (Flomax 0.4 mg) 0.4 MG PC BK PO Levothyroxine Sodium (Synthroid) 75 MCG DAILY 06 00 PO Aspirin (ASPIRIN) 81 MG DAILY PO Docusate Sodium (COLACE) 100 MG BID PO Sennosides (Senna Lax 8.6 MG TABLET) 17.2 MG BED TIME PO Acetaminophen (TYLENOL) 650 MG Q4H PRN PRN PO Acetaminophen (TYLENOL) 650 MG Q4H PRN PRN RECTA L Calcium Chloride (CALCIUM CHLORIDE) 1 GM ASDIR P RN IV Dextrose/Water (DEXTROSE 10% IN WATER) 125 ML DIR PRN IV (CKD) Dextrose/Water (DEXTROSE 10% IN WATER) 250 ML DIR PRN IV (CKD) Epinephrine (ADRENALIN CHLORIDE) 4 MG ASDIR IV Dextrose/Water (DEXTROSE 5% WATER) 246 ML Glucagon (GLUCAGON) 1 MG ASDIR PRN IM Insulin Human Regular (HumuLIN R) 100 UNIT ASDIR IV (CKD) Sodium Chloride (SODIUM CHLORIDE 0.9%) 99 ML Magnesium Sulfate (MAGNESIUM SULFATE 4GM/SWFI 10 0ML) 100 ML ASDIR PRN IV Magnesium Sulfate (MAGNESIUM SULFATE 2GM/SWFI 50 ML) 50 ML ASDIR PRN IV Magnesium Sulfate/Dextrose (MAGNESIUM SULFATE 1G M/D5W 100ML) 100 ML ASDIR PRN IV Nitroglycerin/Dextrose (NITROGLYCERIN 50,000MCG/ D5W 250ML) 250 ML ASDIR IV Norepinephrine Bitartrate (NOREPINEPHRINE 8 MG/N S 250 ML) 250 ML TITRATE IV Ondansetron HCl (ZOFRAN) 4 MG Q6H PRN PRN IV Potassium Chloride (KCL 20MEQ/SWFI 100ML) 100 ML ASDIR PRN IV Sodium Bicarbonate (SODIUM BICARBONATE) 50 MEQ A SDIR PRN IV Sodium Chloride (SODIUM CHLORIDE) 20 ML ASDIR IV Lactated Ringer's (LACTATED RINGERS) 1,000 ML SD EOP ONCALL IV Lidocaine HCl (LIDOCAINE HCL/PF) 2 ML PREOP ONCA LL LOCAL Lidocaine HCl (LIDOCAINE HCL/PF) 2 ML PREOP ONCA LL LOCAL Sodium Chloride (SODIUM CHLORIDE 0.9%) 500 ML SD EOP ONCALL IV Sodium Chloride (SODIUM CHLORIDE 0.9%) 500 ML SD EOP ONCALL IV Sodium Chloride (SODIUM CHLORIDE 0.9%) 1,000 ML PREOP ONCALL IV Sodium Chloride (SODIUM CHLORIDE) 5 ML ASDIR PRN IV Sodium Chloride (SODIUM CHLORIDE) 10 ML ASDIR SD N IV Sodium Chloride (SODIUM CHLORIDE 0.9%) 250 ML DIR PRN IV Functional Progress Functional progress: Weightbearing: No Restriction Ambulation Distance: 250 FT X 3 Progression: Forward Assistance Level: Supervision or Set-up Gait Deviations: SHORT STEPS Document Pain/Education: No Advanced Progression: No Effects of Treatment: Balance Improved Function Improved Gait quality improved Post TX Precautions: In Chair Nursing Notified Pulse OX in Place Review Plan of Care: Yes PT charges: Gait Training [id number] Gait Cmt: PATIENT IN BED UPON ARRIVAL AND AGREE ABLE TO THERAPY. PATIENT MIN A FOR SUPINE TO SIT AND C GA FOR SIT TO STAND. PATIENT AMBULATED 250' X 3 WITH STANDING REST BREAK TO RECOVER. PATIENT NOTED WITH MODERATE SOB BUT O2 SATS WNL. PATIENT PLACED IN BEDSIDE CHAIR WITH CALL AU IN REACH AND ALL NEEDS MET. BP TAKEN POST THERAPY AT 191/85. RN NOTIFIED AND AWARE. If this is the patient's last treatment, this e ntry Start Time: 1033 Stop Time: 1056 Treatment Time : ( minutes) 0:23 Completed by: Al Jaramillo Conference/Supervising PT: Yes Supervising Therapist: Monserrat Enrique . BED MOBILITY: Yes Sit to Supine: Minimal Assistance TRANSFERS: Yes Sit to/from stand: Minimal Assistance Physical Exam General appearance: alert, awake Psych: alert, oriented x 3 HEENT: anicteric, sclera clear Neck: supple, no JVD Cardiovascular: regular rate rhythm, S1/S2 Respiratory: aerating well, clear bilaterally Abdomen: bowel sounds present, non-distended, so ft Skin: intact, no rash, incisions C/D/I Musculoskeletal - general: Musculoskeletal - general: joints normal, isabell l muscle mass Neuro/CERTIFIED NURSES AIDE: CNII-XII intact Results Findings/Data: Laboratory Tests: 06/10 06/09 06/09 06/09 0213 2044 1643 1121 Chemistry Sodium (134 - 147 mEq/L) 138 Potassium (3.4 - 5.0 mEq/L) 3.7 Chloride (100 - 108 mEq/L) 105 Carbon Dioxide (21 - 33 mEq/l) 26 Anion Gap (0 - 20) 10 BUN (7 - 18 mg/dL) 12 Creatinine (0.6 - 1.3 mg/dL) 0.9 Glomerular Filtr Rate (70 - 80) 84.7 H Glucose (70 - 110 mg/dL) 142 H POC Glucose (70 - 110 MG/DL) 186 H 100 153 H Calcium (8.0 - 10.5 mg/dL) 7.9 L Magnesium (1.80 - 2.40 mg/dL) 2.04 Hematology WBC (4.5 - 11.0 x10 3/uL) 10.0 RBC (4.00 - 5.60 x10 6/uL) 2.79 L Hgb (12.5 - 16.9 g/dL) 8.5 L Hct (37.5 - 50.7 %) 25.9 L MCV (81.0 - 99.0 fL) 92.8 MCH (27.0 - 33.0 pg) 30.5 MCHC (33.0 - 37.0 g/dL) 32.8 L RDW (11.5 - 14.5 %) 15.0 H Plt Count (150 - 400 x10 3/uL) 202 MPV (7.0 - 9.0 fL) 10.1 H Neut % (Auto) (56.0 - 77.0 %) 70.9 Lymph % (Auto) (14.0 - 32.0 %) 15.2 [place] % (Auto) (4.8 - 9.0 %) 9.3 H Eos % (Auto) (0.3 - 3.7 %) 2.9 Baso % (Auto) (0.0 - 2.0 %) 0.3 Neut # (Auto) (2.0 - 7.6 x10 3/uL) 7.09 Lymph # (Auto) (1.0 - 3.8 x10 3/uL) 1.52 [place] # (Auto) (0.1 - 0.8 x10 3/uL) 0.93 H Eos # (Auto) (0.0 - 0.2 x10 3/uL) 0.29 H Baso # (Auto) (0.0 - 0.2 x10 3/uL) 0.03 Abs Immat Gran (auto) (0.00 - 0.03 x10 3/uL) 0. 14 H Add Manual Diff NO Immature Gran % (0.0 - 2.0 %) 1.4 Nucleated RBC % (0 - 0 %) 0.4 H Nucleated RBCs # (Man) (0.0 - 0.1 x10 3/uL) 0.0 4 06/09 0730 Chemistry POC Glucose (70 - 110 MG/DL) 109 Diagnosis, Assessment Plan Free Text A P: Severe mitral regurgitation Status post mitral valve replacement Impaired ADLs, mobility, gait Generalized weakness Postoperative anemia Postoperative pain Plan: Continue PT/OT Out of bed to chair Work on strength, bed mobility, transfers, gait Sternal precautions Increase endurance Fall precautions Monitor p.o. intake and nutrition Strict decubitus precautions Continue current medications Monitor labs closely Advance therapies as tolerated Patient walking 250 feet x 3, but still min assi st with transfers Unsteady with gait. I watched him walk to the to ilet today Recommend SNF. Outpatient cardiac rehab after SN F Total time was 33 minutes > 50% with patient per forming physical examination, discussing plan of care, goals, therapies, progr ess, medications, labs. All questions answered Rehab attestation: . Electronically Signed by Chuy Andrew on 0 06/10/23 at 1549 RPT #:[id number] END OF REPORT 2023-06-10 06:25:00-00:00 [facility]L [facility] Card[facility] Progress Note REPORT#:[id number] REPORT STATUS: Signed DATE:06/10/23 TIME: 624 PATIENT: ODIN ZENG UNIT #: [id number] ROOM/BED: [place] [id number] : 40 AGE: 83 SEX: M ATTEND: Ramo Sanchez MD ADM AUTHOR: Kathe Bradshaw ACNP * ALL edits or amendments must be made on the [employer]/computer document * Subjective Patient reports: No: complaints. Comments: doing well. No SOB, no CP. Objective General VS/I O: 24 hour I O ending at 0700: 06/10 0700 06/09 1900 Intake Total 700 Output Total 750 Balance -50 Intake, Oral 700 Output, Urine 750 Vital Signs: Date Time Temp Pulse Resp B/P B/P Pulse O2 O2 F low FiO2 Mean Ox Delivery Rate 06/10 0410 97 Room air 0 21 06/09 2111 97 Room air 0 21 06/09 2000 36.4 06/09 1800 65 122/61 85 97 06/09 1700 64 24 152/71 102 96 06/09 1600 36.7 06/09 1500 60 26 150/67 97 93 06/09 1400 59 29 136/61 88 91 06/09 1300 61 30 152/71 102 99 06/09 1201 61 20 132/59 85 95 06/09 1200 36.8 06/09 1200 61 21 90 06/09 1102 77 202/93 134 99 06/09 1100 84 94 06/09 1000 57 15 94 06/09 0900 62 18 162/74 106 92 06/09 0803 98 Room air 06/09 0800 36.7 06/09 0800 64 40 147/64 92 90 06/09 0700 53 20 96 PATIENT WEIGHT: Weight (lb): 185 Weight (oz): 3.01 Weight (kg): 84.000 Medications: Active Meds + DC'd Last 24 Hrs Potassium Chloride (POTASSIUM CHLORIDE 20MEQ TAB .ER) 20 MEQ ONCE ONE PO (DC) Amlodipine Besylate (NORVASC) 5 MG DAILY PO Potassium Chloride (POTASSIUM CHLORIDE 20MEQ TAB .ER) 20 MEQ ONCE ONE PO (DC) Tamsulosin HCl (Flomax 0.4 mg) 0.4 MG DAILY 1700 PO Amiodarone HCl (CORDARONE) 200 MG BID PO Insulin Glargine (Semglee) 10 UNIT BID SUBQ Ipratropium [place] (ATROVENT) 500 MCG RTQ2H PRN PRN INH Cyanocobalamin (Vitamin B-12 500 mcg tab) 500 MC G DAILY PO Ferrous Sulfate (FERROUS SULFATE) 325 MG DAILY P O Bisacodyl (DULCOLAX) 10 MG ONCE PRN RECTAL Magnesium Hydroxide (MILK OF MAGNESIA) 30 ML ONC E PRN PO Atorvastatin Calcium (LIPITOR) 40 MG 2100 PO Insulin Human Lispro (HUMALOG) 0 AC HS SUBQ Polyethylene Glycol (MIRALAX) 17 GM DAILY PO Tamsulosin HCl (Flomax 0.4 mg) 0.4 MG PC BK PO Levothyroxine Sodium (Synthroid) 75 MCG DAILY 06 00 PO Aspirin (ASPIRIN) 81 MG DAILY PO Docusate Sodium (COLACE) 100 MG BID PO Sennosides (Senna Lax 8.6 MG TABLET) 17.2 MG BED TIME PO Acetaminophen (TYLENOL) 650 MG Q4H PRN PRN PO Acetaminophen (TYLENOL) 650 MG Q4H PRN PRN RECTA L Calcium Chloride (CALCIUM CHLORIDE) 1 GM ASDIR P RN IV Dextrose/Water (DEXTROSE 10% IN WATER) 125 ML DIR PRN IV (CKD) Dextrose/Water (DEXTROSE 10% IN WATER) 250 ML DIR PRN IV (CKD) Epinephrine (ADRENALIN CHLORIDE) 4 MG ASDIR IV Dextrose/Water (DEXTROSE 5% WATER) 246 ML Glucagon (GLUCAGON) 1 MG ASDIR PRN IM Insulin Human Regular (HumuLIN R) 100 UNIT ASDIR IV (CKD) Sodium Chloride (SODIUM CHLORIDE 0.9%) 99 ML Magnesium Sulfate (MAGNESIUM SULFATE 4GM/SWFI 10 0ML) 100 ML ASDIR PRN IV Magnesium Sulfate (MAGNESIUM SULFATE 2GM/SWFI 50 ML) 50 ML ASDIR PRN IV Magnesium Sulfate/Dextrose (MAGNESIUM SULFATE 1G M/D5W 100ML) 100 ML ASDIR PRN IV Nitroglycerin/Dextrose (NITROGLYCERIN 50,000MCG/ D5W 250ML) 250 ML ASDIR IV Norepinephrine Bitartrate (NOREPINEPHRINE 8 MG/N S 250 ML) 250 ML TITRATE IV Ondansetron HCl (ZOFRAN) 4 MG Q6H PRN PRN IV Potassium Chloride (KCL 20MEQ/SWFI 100ML) 100 ML ASDIR PRN IV Sodium Bicarbonate (SODIUM BICARBONATE) 50 MEQ A SDIR PRN IV Sodium Chloride (SODIUM CHLORIDE) 20 ML ASDIR IV Lactated Ringer's (LACTATED RINGERS) 1,000 ML SD EOP ONCALL IV Lidocaine HCl (LIDOCAINE HCL/PF) 2 ML PREOP ONCA LL LOCAL Lidocaine HCl (LIDOCAINE HCL/PF) 2 ML PREOP ONCA LL LOCAL Sodium Chloride (SODIUM CHLORIDE 0.9%) 500 ML SD EOP ONCALL IV Sodium Chloride (SODIUM CHLORIDE 0.9%) 500 ML SD EOP ONCALL IV Sodium Chloride (SODIUM CHLORIDE 0.9%) 1,000 ML PREOP ONCALL IV Sodium Chloride (SODIUM CHLORIDE) 5 ML ASDIR PRN IV Sodium Chloride (SODIUM CHLORIDE) 10 ML ASDIR SD N IV Sodium Chloride (SODIUM CHLORIDE 0.9%) 250 ML DIR PRN IV Physical Exam General appearance: alert, awake Neck: non-tender, no JVD Cardiovascular: CV assessment: irregular rhythm Respiratory: clear to auscultation, no distress Abdomen: non-tender, normal bowel sounds , no distention, no guarding, no mass/ organomegaly, no pulsatile mass, no rebound Genitourinary: no flank pain, no urinary cathete r Lower extremity: LE assessment: normal capillary refill, no mirna a Musculoskeletal: normal inspection Neuro/CERTIFIED NURSES AIDE: alert, oriented X 3, normal speech Psychiatry: normal affect, normal judgment/insig ht, normal mood Results Findings/Data: Laboratory Tests 06/10 2044 1643 1121 0730 Chemistry Sodium (134 - 147 mEq/L) 138 Potassium (3.4 - 5.0 mEq/L) 3.7 Chloride (100 - 108 mEq/L) 105 Carbon Dioxide (21 - 33 mEq/l) 26 Anion Gap (0 - 20) 10 BUN (7 - 18 mg/dL) 12 Creatinine (0.6 - 1.3 mg/dL) 0.9 Glomerular Filtr Rate (70 - 80) 84.7 H Glucose (70 - 110 mg/dL) 142 H POC Glucose (70 - 110 MG/DL) 186 H 100 153 H 10 9 Calcium (8.0 - 10.5 mg/dL) 7.9 L Magnesium (1.80 - 2.40 mg/dL) 2.04 Laboratory Tests 06/10 213 Hematology WBC (4.5 - 11.0 x10 3/uL) 10.0 RBC (4.00 - 5.60 x10 6/uL) 2.79 L Hgb (12.5 - 16.9 g/dL) 8.5 L Hct (37.5 - 50.7 %) 25.9 L MCV (81.0 - 99.0 fL) 92.8 MCH (27.0 - 33.0 pg) 30.5 MCHC (33.0 - 37.0 g/dL) 32.8 L RDW (11.5 - 14.5 %) 15.0 H Plt Count (150 - 400 x10 3/uL) 202 MPV (7.0 - 9.0 fL) 10.1 H Neut % (Auto) (56.0 - 77.0 %) 70.9 Lymph % (Auto) (14.0 - 32.0 %) 15.2 [place] % (Auto) (4.8 - 9.0 %) 9.3 H Eos % (Auto) (0.3 - 3.7 %) 2.9 Baso % (Auto) (0.0 - 2.0 %) 0.3 Neut # (Auto) (2.0 - 7.6 x10 3/uL) 7.09 Lymph # (Auto) (1.0 - 3.8 x10 3/uL) 1.52 [place] # (Auto) (0.1 - 0.8 x10 3/uL) 0.93 H Eos # (Auto) (0.0 - 0.2 x10 3/uL) 0.29 H Baso # (Auto) (0.0 - 0.2 x10 3/uL) 0.03 Abs Immat Gran (auto) (0.00 - 0.03 x10 3/uL) 0. 14 H Add Manual Diff NO Immature Gran % (0.0 - 2.0 %) 1.4 Nucleated RBC % (0 - 0 %) 0.4 H Nucleated RBCs # (Man) (0.0 - 0.1 x10 3/uL) 0.0 4 Laboratory Tests 06/10 0213 Chemistry Magnesium (1.80 - 2.40 mg/dL) 2.04 Radiology data: Recent Impressions: RADIOLOGY - XR CHEST 1 V 06/09 0635 Report Impression - Status: SIGNED Entered: 06/09/2023 0659 IMPRESSION: Minimal basilar opacities likely atelectasis or scarring. No new areas of airspace disease. Impression By: [email or web address] - Trev Gonsalez ULTRASOUND - DUP VEIN ASIM 06/09 1505 Report Impression - Status: SIGNED Entered: 06/09/2023 1512 IMPRESSION: No evidence of deep vein thrombosis. Impression By: Lars Reyes Results: labs reviewed, vital signs reviewed, [facility] personally rev'd Telemetry Interpretation: irregular rhythm - SR with frequent PACs vs afib Diagnosis, Assessment Plan Plan discussed with: patient, family, collaborat ing MD, nurse Free Text DxA P Notes Free Text DxA P Notes: Cardiology consultation s/p mitral valve replace ment on this 83 YO gentleman with PMHx of paroxysmal atri al fibrillation, DM, hypothyrodism who was found to have severe mitral valve prolapse . 1. Severe mitral valve prolapse s/p Mitral Valve Replacement * doing well * post-op care per CTS * post-op bradycardia - EP following * tele - rhyhtm appear irregular, could be sinus with frequent PACs vs afib, will get 12 lead EKG 2. Atrial fibrillation s/p PVI and ALAA * on amiodarone * BB dc'd 3. Junctional Bradycardia/sick sinus syndrome * EP following * tele appear irregular, rate about 70s, afib vs sinus with frequent PACs * repeat EKG 4. Hypertension * continue amlodipine 5 mg daily MDM by Dr. Diggs. at 1642 RPT #:[id number] END OF REPORT 2023-06-09 22:16:00-00:00 [facility] REPORT#:[id number] REPORT STATUS: Signed DATE:06/09/23 TIME: 2215 PATIENT: ODIN ZENG UNIT #: [id number] ROOM/BED: [place] [address] : 40 AGE: 83 SEX: M ATTEND: Ramo Sanchez MD ADM AUTHOR: Toña Bertrand MD * ALL edits or amendments must be made on the [employer]/computer document * Subjective Chief complaint: none Objective General VS/I O: 24 hour I O ending at 0700: 06/09 0700 06/08 1900 Intake Total 500.00 960 Output Total 725 360 Balance -225.00 600 Intake, IV 100.00 Intake, Oral 400 960 Number 1 Bowel Movements Output, Urine 725 360 Patient 84 kg Weight Weight Standing scale Measurement Method Vital Signs: Date Time Temp Pulse Resp B/P B/P Pulse O2 O2 F low FiO2 Mean Ox Delivery Rate 06/09 2111 97 Room air 0 21 06/09 2000 97.6 06/09 1800 65 122/61 85 97 06/09 1700 64 24 152/71 102 96 06/09 1600 98.1 06/09 1500 60 26 150/67 97 93 06/09 1400 59 29 136/61 88 91 06/09 1300 61 30 152/71 102 99 06/09 1201 61 20 132/59 85 95 06/09 1200 98.2 06/09 1200 61 21 90 06/09 1102 77 202/93 134 99 06/09 1100 84 94 06/09 1000 57 15 94 06/09 0900 62 18 162/74 106 92 06/09 0803 98 Room air 06/09 0800 98.0 06/09 0800 64 40 147/64 92 90 06/09 0700 53 20 96 06/09 0606 58 06/09 0501 54 28 126/60 86 99 06/09 0403 60 15 136/74 99 100 06/09 0400 97 Nasal 2 28 cannula 06/09 0301 54 21 120/61 84 98 06/09 0201 56 25 117/56 80 99 06/09 0100 57 26 126/64 90 99 06/09 0016 97 Nasal 2 28 cannula 06/09 0000 59 25 128/58 84 96 06/08 2300 60 27 118/59 81 95 PATIENT WEIGHT: Weight (lb): 185 Weight (oz): 3.01 Weight (kg): 84.000 Medications: Active Meds + DC'd Last 24 Hrs Amlodipine Besylate (NORVASC) 5 MG DAILY PO Potassium Chloride (POTASSIUM CHLORIDE 20MEQ TAB .ER) 20 MEQ ONCE ONE PO (DC) Tamsulosin HCl (Flomax 0.4 mg) 0.4 MG DAILY 1700 PO Amiodarone HCl (CORDARONE) 200 MG BID PO Insulin Glargine (Semglee) 10 UNIT BID SUBQ Ipratropium [place] (ATROVENT) 500 MCG RTQ2H PRN PRN INH Cyanocobalamin (Vitamin B-12 500 mcg tab) 500 MC G DAILY PO Ferrous Sulfate (FERROUS SULFATE) 325 MG DAILY P O Bisacodyl (DULCOLAX) 10 MG ONCE PRN RECTAL Magnesium Hydroxide (MILK OF MAGNESIA) 30 ML ONC E PRN PO Atorvastatin Calcium (LIPITOR) 40 MG 2100 PO Insulin Human Lispro (HUMALOG) 0 AC HS SUBQ Polyethylene Glycol (MIRALAX) 17 GM DAILY PO Tamsulosin HCl (Flomax 0.4 mg) 0.4 MG PC BK PO Levothyroxine Sodium (Synthroid) 75 MCG DAILY 06 00 PO Aspirin (ASPIRIN) 81 MG DAILY PO Docusate Sodium (COLACE) 100 MG BID PO Sennosides (Senna Lax 8.6 MG TABLET) 17.2 MG BED TIME PO Acetaminophen (TYLENOL) 650 MG Q4H PRN PRN PO Acetaminophen (TYLENOL) 650 MG Q4H PRN PRN RECTA L Calcium Chloride (CALCIUM CHLORIDE) 1 GM ASDIR P RN IV Dextrose/Water (DEXTROSE 10% IN WATER) 125 ML DIR PRN IV (CKD) Dextrose/Water (DEXTROSE 10% IN WATER) 250 ML DIR PRN IV (CKD) Epinephrine (ADRENALIN CHLORIDE) 4 MG ASDIR IV Dextrose/Water (DEXTROSE 5% WATER) 246 ML Glucagon (GLUCAGON) 1 MG ASDIR PRN IM Insulin Human Regular (HumuLIN R) 100 UNIT ASDIR IV (CKD) Sodium Chloride (SODIUM CHLORIDE 0.9%) 99 ML Magnesium Sulfate (MAGNESIUM SULFATE 4GM/SWFI 10 0ML) 100 ML ASDIR PRN IV Magnesium Sulfate (MAGNESIUM SULFATE 2GM/SWFI 50 ML) 50 ML ASDIR PRN IV Magnesium Sulfate/Dextrose (MAGNESIUM SULFATE 1G M/D5W 100ML) 100 ML ASDIR PRN IV Nitroglycerin/Dextrose (NITROGLYCERIN 50,000MCG/ D5W 250ML) 250 ML ASDIR IV Norepinephrine Bitartrate (NOREPINEPHRINE 8 MG/N S 250 ML) 250 ML TITRATE IV Ondansetron HCl (ZOFRAN) 4 MG Q6H PRN PRN IV Potassium Chloride (KCL 20MEQ/SWFI 100ML) 100 ML ASDIR PRN IV Sodium Bicarbonate (SODIUM BICARBONATE) 50 MEQ A SDIR PRN IV Sodium Chloride (SODIUM CHLORIDE) 20 ML ASDIR IV Lactated Ringer's (LACTATED RINGERS) 1,000 ML SD EOP ONCALL IV Lidocaine HCl (LIDOCAINE HCL/PF) 2 ML PREOP ONCA LL LOCAL Lidocaine HCl (LIDOCAINE HCL/PF) 2 ML PREOP ONCA LL LOCAL Sodium Chloride (SODIUM CHLORIDE 0.9%) 500 ML SD EOP ONCALL IV Sodium Chloride (SODIUM CHLORIDE 0.9%) 500 ML SD EOP ONCALL IV Sodium Chloride (SODIUM CHLORIDE 0.9%) 1,000 ML PREOP ONCALL IV Sodium Chloride (SODIUM CHLORIDE) 5 ML ASDIR PRN IV Sodium Chloride (SODIUM CHLORIDE) 10 ML ASDIR SD N IV Sodium Chloride (SODIUM CHLORIDE 0.9%) 250 ML DIR PRN IV Physical Exam General appearance: alert, awake, oriented Neck: no JVD Cardiovascular: CV assessment: regular rate and rhythm, pedal p ulses present Respiratory: clear to auscultation, no distress Abdomen: soft, non-tender, normal bowel sounds, no distention Genitourinary: urinary catheter, urine Lower extremity: LE assessment: no calf tenderness, no edema Musculoskeletal: normal inspection Neuro/CERTIFIED NURSES AIDE: alert Skin: dry, intact Psychiatry: normal affect, normal mood Results Findings/Data: Laboratory Tests 06/09 06/09 06/09 06/09 06/09 2044 1643 1121 0730 0207 Chemistry Sodium (134 - 147 mEq/L) 136 Potassium (3.4 - 5.0 mEq/L) 3.6 Chloride (100 - 108 mEq/L) 105 Carbon Dioxide (21 - 33 mEq/l) 26 Anion Gap (0 - 20) 9 BUN (7 - 18 mg/dL) 14 Creatinine (0.6 - 1.3 mg/dL) 0.9 Glomerular Filtr Rate (70 - 80) 84.7 H Glucose (70 - 110 mg/dL) 138 H POC Glucose (70 - 110 MG/DL) 186 H 100 153 H 10 9 Calcium (8.0 - 10.5 mg/dL) 8.2 Magnesium (1.80 - 2.40 mg/dL) 2.06 Laboratory Tests 06/09 0207 Hematology WBC (4.5 - 11.0 x10 3/uL) 10.4 RBC (4.00 - 5.60 x10 6/uL) 2.52 L Hgb (12.5 - 16.9 g/dL) 7.7 L Hct (37.5 - 50.7 %) 22.8 L MCV (81.0 - 99.0 fL) 90.5 MCH (27.0 - 33.0 pg) 30.6 MCHC (33.0 - 37.0 g/dL) 33.8 RDW (11.5 - 14.5 %) 14.4 Plt Count (150 - 400 x10 3/uL) 136 L MPV (7.0 - 9.0 fL) 11.1 H Neut % (Auto) (56.0 - 77.0 %) 70.2 Lymph % (Auto) (14.0 - 32.0 %) 16.1 [place] % (Auto) (4.8 - 9.0 %) 9.6 H Eos % (Auto) (0.3 - 3.7 %) 2.2 Baso % (Auto) (0.0 - 2.0 %) 0.4 Neut # (Auto) (2.0 - 7.6 x10 3/uL) 7.33 Lymph # (Auto) (1.0 - 3.8 x10 3/uL) 1.68 [place] # (Auto) (0.1 - 0.8 x10 3/uL) 1.00 H Eos # (Auto) (0.0 - 0.2 x10 3/uL) 0.23 H Baso # (Auto) (0.0 - 0.2 x10 3/uL) 0.04 Abs Immat Gran (auto) (0.00 - 0.03 x10 3/uL) 0. 16 H Add Manual Diff NO Immature Gran % (0.0 - 2.0 %) 1.5 Nucleated RBC % (0 - 0 %) 0.7 H Nucleated RBCs # (Man) (0.0 - 0.1 x10 3/uL) 0.0 7 Laboratory Tests 06/09 0207 Chemistry Magnesium (1.80 - 2.40 mg/dL) 2.06 Radiology data: Recent Impressions: RADIOLOGY - XR CHEST 1 V 06/09 0635 Report Impression - Status: SIGNED Entered: 06/09/2023 0659 IMPRESSION: Minimal basilar opacities likely atelectasis or scarring. No new areas of airspace disease. Impression By: [email or web address] - Trev Gonsalez ULTRASOUND - DUP VEIN ASIM 06/09 1505 Report Impression - Status: SIGNED Entered: 06/09/2023 1512 IMPRESSION: No evidence of deep vein thrombosis. Impression By: Brent - Lars Rodriguez Results: labs reviewed, vital signs reviewed, vi mercedes signs stable Diagnosis, Assessment Plan Consultants: anesthesiology, cardiology, cardiov ascular surgery, critical/ paper testing supervisor, hospitalist Free Text DxA P Notes Free Text DxA P Notes: Cardiology consultation s/p mitral valve replace ment on this 83 YO gentleman with PMHx of paroxysmal atri al fibrillation, DM, hypothyrodism who was found to have severe mitral valve prolapse . 1. Severe mitral valve prolapse s/p Mitral Valve Replacement * doing well * post-op care per CTS * post-op bradycardia - EP consulted * pacer was temp paused - showed sinus rhythm 2. Atrial fibrillation s/p PVI and ALAA * amiodarone decreased * BB dc'd 3. Junctional Bradycardia * EP consult * underlying rhythm sinus rhythm when pacer was paused today MDM by Dr. Diggs. 06/08/23: - Severe mitral valve prolapse s/p Mitral Valve Replacement, 29 Mitris tissue valve, PVI, Isolation FLEX 06/03/2023 - Symptomatic bradycardia/sick sinus sydrome - EKG showed accelerated junctional rhythm rate 70 - BP stable/ECHO: P - mod, non obst CAD, [facility] 05-20-23 - Discontinue BB, decrease amiodarone - EKG today NSR with PACs rate 73 - Atrial fibrillation s/p PVI and ALAA ECHO; 06-09-23 1. Left ventricle: The cavity size is normal. Wa ll thickness is normal. Systolic function is normal. The estimated eject ion fraction is 55-59%. Wall motion is normal; there are no regional wall mot ion abnormalities. Features are consistent with a pseudonormal left ventricu lar filling pattern, with concomitant abnormal relaxation and increased fi lling pressure (grade 2 diastolic dysfunction). 2. Right ventricle: The cavity size is dilated. Systolic pressure is at the upper limits of normal. 3. Left atrium: The atrium is dilated 4. Right atrium: The atrium is dilated. 5. Mitral valve: There is a normally functioning 29 mm bioprosthesis (Pastor). The prosthesis has a normal range of motion. 29 mm Mitris Valve, Normally functioning. There is no regurgitation. 6. Tricuspid valve: There is mild regurgitation. -STABLE CARDIAC STATUS -ADD NORVASC 5 MG DAILY FOR BP CONTROL Electronically Signed by Toña Bertrand MD on 0 06/09/23 at 2219 RPT #:[id number] END OF REPORT 2023-06-09 21:57:00-00:00 [id number] [place] [id number] PATIENT NAME: ODIN ZENG ADMIT DATE: 06/03/23 ACCOUNT NO: [id number] ROOM NO: [id number] AGE: 83 REPORT TYPE: eECHOCARDIOGRAM REPORT SEX: M ADMITTING PHYSICIAN:Abiodun Sanchez MD ATTENDING PHYSICIAN:Abiodun Sanchez MD *[address] [place] [id number] Transthoracic Echocardiogram Patient: Odin Zeng Study Date: 06/09/2023 BP: 126 / 60 Location: [facility] URN: [id number] : 1940 Age: 83 Height: 68 in / 172.7 cm Gender: M Weight: 182 .6 lb / 83 kg BMI/BSA: 27.8 kg/m 2 / 1.97 m 2 *Ordering Physician: * Toña Bertrand MD *Interpreting Physician: * Toña Bertrand MD *Ecommerce Marketing Specialist: * Brenda Martinez Indications: S/p MVR. Study data: Transthoracic echocardiogram. Proced ure: Transthoracic echocardiography was performed. Image quality wa s adequate. The study was technically limited due to restricted patien t mobility and excessive abdominal air. Complete 2D, complete spectral Do ppler, and color Doppler. Location: Bedside. Patient status: Tawny love. Patient room number: 2202. Study status: Routine. Findings Left ventricle: The cavity size is normal. Wall thickness is normal. Systolic function is normal. The estimated eject ion fraction is 55-59%. Wall motion is normal; there are no regional wal l motion abnormalities. Features are consistent with a pseudonormal left ventricular filling pattern, with concomitant abnormal relaxation an d increased filling PATIENT NAME: ODIN ZENG 1 pressure (grade 2 diastolic dysfunction). Right ventricle: The cavity size is dilated. Sys tolic function is normal. TAPSE measurement is estimated at 12 mm. Systolic pressure is at the upper limits of normal. Left atrium: The atrium is dilated. Right atrium: The atrium is dilated. Aorta: Aortic root: The aortic root is normal in size. Aortic valve: Not well visualized. The valve is structurally normal. The valve is probably trileaflet. There is no ev idence of stenosis. There is no regurgitation. Mitral valve: There is a normally functioning 29 mm bioprosthesis (Pastor Miquel). The prosthesis has a normal ra nge of motion. 29 mm Mitral Valve, Normally functioning. There is no regurgitation. Tricuspid valve: The valve is structurally isabell l. There is mild regurgitation. Pulmonic valve: Not well visualized. The valve i s structurally normal. There is physiologic regurgitation. Pericardium: There is no pericardial effusion. Pulmonary arteries: The main pulmonary artery is normal-sized. Systemic veins: Inferior vena cava: The vessel is normal in size . The respirophasic diameter changes are in the normal range (= 50%) . Measurements Left ventricle Value Ref ETHEL, LAX 4.4 cm 4.2 - 5.8 ESD, LAX 3.1 cm 2.5 - 4.0 ESD/bsa, LAX 1.6 cm/m 2 1.3 - 2.1 FS, LAX 30 % 25 - 43 ESD/bsa major 2.8 cm/m 2 --------- ax, A4C ETHEL/bsa minor 2.8 cm/m 2 --------- ax, A4C ETHEL major ax, 6.2 cm --------- A2C ESD major ax, 5.5 cm --------- A2C ETHEL/bsa major 3.2 cm/m 2 --------- ax, A2C ESD/bsa major 2.8 cm/m 2 --------- ax, A2C PW, ED 1.0 cm 0.6 - 1.0 IVS/PW, ED 1.02 --------- EF 57 % 52 - 72 E', lat antwon, TDI 7.5 cm/sec >=10.0 E/e', lat antwon, 19 --------- TDI E', med antwon, TDI 3.9 cm/sec >=7.0 E/e', med antwon, 36 --------- TDI E', avg, TDI 5.7 cm/sec --------- PATIENT NAME: ODIN ZENG 1 E/e', avg, TDI 24 <=14 LVOT Value Ref Diam, S 1.98 cm --------- Area 3.1 cm 2 --------- Peak alexander, S 1.14 m/sec --------- Mean alexander, S 0.77 m/sec --------- VTI, S 20.8 cm --------- Peak grad, S 5 mm Hg --------- Mean grad, S 3 mm Hg --------- SV 64 ml --------- Qs 3.69 L/min --------- Qs/bsa 1.9 L/(min-m 2) --------- SV/bsa 32 ml/m 2 --------- Ventricular septum Value Ref IVS, ED 1.0 cm 0.6 - 1.0 Right ventricle Value Ref TAPSE, MM 1.1 cm 1.7 - 3.1 Pressure, S 32 mm Hg --------- RVOT Value Ref Peak v, S 0.6 m/sec --------- Peak grad, S 1 mm Hg --------- Left atrium Value Ref AP dim, ES 4.08 cm 3.00 - 4.00 Vol/bsa, ES, 1-p 26 ml/m 2 12 - 37 A4C Vol, ES, 2-p 65 ml --------- Vol/bsa, ES, 2-p 33 ml/m 2 16 - 34 Vol/bsa, ES, A/L 29 ml/m 2 16 - 34 AP dim, ES MM 3.3 cm 3.0 - 4.0 LA/Ao root 0.99 --------- ratio, MM Right atrium Value Ref Area, ES 20 cm 2 10 - 18 SI dim, ES, A4C 5.2 cm 3.4 - 5.3 SI dim/bsa, ES, 2.6 cm/m 2 1.8 - 3.0 A4C Vol, ES, A/L 67 ml --------- Vol, ES, 1-p A4C 65 ml --------- Vol/bsa, ES, 1-p 33 ml/m 2 11 - 39 A4C Aortic valve Value Ref Leaflet sep 3.3 cm --------- Leaflet sep, MM 1.33 cm --------- Peak v, S 1.31 m/sec --------- Mean v, S 0.85 m/sec --------- VTI, S 25.5 cm --------- PATIENT NAME: ODIN ZENG 1 Mean grad, S 3.4 mm Hg --------- Peak grad, S 6.9 mm Hg --------- LVOT/AV, VTI 0.81 --------- ratio SILVESTRE, VTI 2.50 cm 2 --------- LVOT/AV, Vpeak 0.87 --------- ratio SILVESTRE, Vmax 2.68 cm 2 --------- Mitral valve Value Ref Peak E 1.4 m/sec --------- Peak A 0.55 m/sec --------- Decel time 241 ms --------- PHT 66 ms --------- Peak grad, D 7.8 mm Hg --------- Peak E/A ratio 2.53 --------- MVA, PHT 3.4 cm 2 --------- Pulmonic valve Value Ref SD v, ED 0.58 m/sec --------- Tricuspid valve Value Ref TR peak v 2.67 m/sec <=2.8 Peak RV-RA grad, 29 mm Hg --------- S Aortic root Value Ref Root diam, ED MM 3.35 cm --------- Ascending aorta Value Ref AAo AP diam, S 3.1 cm --------- AAo AP diam/bsa, 1.6 cm/m 2 --------- S Pulmonary artery Value Ref Pressure, S 28.2 mm Hg --------- Systemic veins Value Ref Estimated CVP 3 mm Hg --------- Conclusions Summary: 1. Left ventricle: The cavity size is normal. Wa ll thickness is normal. Systolic function is normal. The estimated ejec tion fraction is 55-59%. Wall motion is normal; there are no reg ional wall motion abnormalities. Features are consistent with a p seudonormal left ventricular filling pattern, with concomitant a bnormal relaxation and increased filling pressure (grade 2 diastolic d ysfunction). 2. Right ventricle: The cavity size is dilated. Systolic pressure is at the upper limits of normal. 3. Left atrium: The atrium is dilated. PATIENT NAME: ODIN ZENG 51 4. Right atrium: The atrium is dilated. 5. Mitral valve: There is a normally functioning 29 mm bioprosthesis (Pastor Miquel). The prosthesis has a normal r chelsie of motion. 29 mm Mitral Valve, Normally functioning. There is no regurgitation. 6. Tricuspid valve: There is mild regurgitation. Prepared and electronically signed by Toña Bertrand MD 06/09/2023 21:57 at 2157 PATIENT NAME: ODIN ZENG 1 2023-06-09 12:37:00-00:00 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 He did not require pacing for the last 2 days. Continue to be off beta-raul. Working physical therapy. Review of Systems Additional notes: 10 point system reviewed were negative except me ntioned HPI Objective General VS/I O Last Documented: Result Date Time Pulse Ox 98 06/09 0803 O2 Delivery Room air 06/09 0803 Pulse 58 06/09 0606 B/P 126/60 06/09 0501 B/P Mean 86 06/09 0501 Resp 28 06/09 0501 FiO2 28 06/09 0400 O2 Flow Rate 2 06/09 0400 Temp 36.5 06/08 2000 24 hour I O ending at 0700: 06/09 0700 06/08 1900 Intake Total 500.00 960 Output Total 725 360 Balance -225.00 600 Intake, IV 100.00 Intake, Oral 400 960 Number 1 Bowel Movements Output, Urine 725 360 Patient 84 kg Weight Weight Standing scale Measurement Method PATIENT WEIGHT: Weight (lb): 185 Weight (oz): 3.01 Weight (kg): 84.000 General appearance: Elderly male in no acute dis tress, interactive and conversational HEENT: atraumatic, EOMI, normocephalic, moist mu cous membranes Neck: non-tender, good range of motion, no zaria s or swelling Cardiovascular: S1-S2 regular rate and rhythm, s ternotomy dressing Respiratory: aerating well, symmetric ex pansion, no acute respiratory distress Abdomen: soft, non-tender, no distention, no gua rding, no rebound Extremities: Pedal pulses present, no clubbing, no cyanosis, no edema Neuro/CERTIFIED NURSES AIDE: alert, oriented X 3, CNII-XII grossly intact, no motor deficits Skin: dry, clean and intact surgery dressing Medications: Active Meds + DC'd Last 24 Hrs Amlodipine Besylate (NORVASC) 5 MG DAILY PO Potassium Chloride (POTASSIUM CHLORIDE 20MEQ TAB .ER) 20 MEQ ONCE ONE PO (DC) Tamsulosin HCl (Flomax 0.4 mg) 0.4 MG DAILY 1700 PO Amiodarone HCl (CORDARONE) 200 MG BID PO Insulin Glargine (Semglee) 10 UNIT BID SUBQ Ipratropium [place] (ATROVENT) 500 MCG RTQ2H PRN PRN INH Cyanocobalamin (Vitamin B-12 500 mcg tab) 500 MC G DAILY PO Ferrous Sulfate (FERROUS SULFATE) 325 MG DAILY P O Bisacodyl (DULCOLAX) 10 MG ONCE PRN RECTAL Magnesium Hydroxide (MILK OF MAGNESIA) 30 ML ONC E PRN PO Atorvastatin Calcium (LIPITOR) 40 MG 2100 PO Insulin Human Lispro (HUMALOG) 0 AC HS SUBQ Polyethylene Glycol (MIRALAX) 17 GM DAILY PO Tamsulosin HCl (Flomax 0.4 mg) 0.4 MG PC BK PO Levothyroxine Sodium (Synthroid) 75 MCG DAILY 06 00 PO Aspirin (ASPIRIN) 81 MG DAILY PO Docusate Sodium (COLACE) 100 MG BID PO Sennosides (Senna Lax 8.6 MG TABLET) 17.2 MG BED TIME PO Acetaminophen (TYLENOL) 650 MG Q4H PRN PRN PO Acetaminophen (TYLENOL) 650 MG Q4H PRN PRN RECTA L Calcium Chloride (CALCIUM CHLORIDE) 1 GM ASDIR P RN IV Dextrose/Water (DEXTROSE 10% IN WATER) 125 ML DIR PRN IV (CKD) Dextrose/Water (DEXTROSE 10% IN WATER) 250 ML DIR PRN IV (CKD) Epinephrine (ADRENALIN CHLORIDE) 4 MG ASDIR IV Dextrose/Water (DEXTROSE 5% WATER) 246 ML Glucagon (GLUCAGON) 1 MG ASDIR PRN IM Insulin Human Regular (HumuLIN R) 100 UNIT ASDIR IV (CKD) Sodium Chloride (SODIUM CHLORIDE 0.9%) 99 ML Magnesium Sulfate (MAGNESIUM SULFATE 4GM/SWFI 10 0ML) 100 ML ASDIR PRN IV Magnesium Sulfate (MAGNESIUM SULFATE 2GM/SWFI 50 ML) 50 ML ASDIR PRN IV Magnesium Sulfate/Dextrose (MAGNESIUM SULFATE 1G M/D5W 100ML) 100 ML ASDIR PRN IV Nitroglycerin/Dextrose (NITROGLYCERIN 50,000MCG/ D5W 250ML) 250 ML ASDIR IV Norepinephrine Bitartrate (NOREPINEPHRINE 8 MG/N S 250 ML) 250 ML TITRATE IV Ondansetron HCl (ZOFRAN) 4 MG Q6H PRN PRN IV Oxycodone HCl (ROXICODONE) 5 MG Q4H PRN PRN PO ( DC) Oxycodone HCl (ROXICODONE) 10 MG Q4H PRN PRN PO (DC) Potassium Chloride (KCL 20MEQ/SWFI 100ML) 100 ML ASDIR PRN IV Sodium Bicarbonate (SODIUM BICARBONATE) 50 MEQ A SDIR PRN IV Sodium Chloride (SODIUM CHLORIDE) 20 ML ASDIR IV Lactated Ringer's (LACTATED RINGERS) 1,000 ML SD EOP ONCALL IV Lidocaine HCl (LIDOCAINE HCL/PF) 2 ML PREOP ONCA LL LOCAL Lidocaine HCl (LIDOCAINE HCL/PF) 2 ML PREOP ONCA LL LOCAL Sodium Chloride (SODIUM CHLORIDE 0.9%) 500 ML SD EOP ONCALL IV Sodium Chloride (SODIUM CHLORIDE 0.9%) 500 ML SD EOP ONCALL IV Sodium Chloride (SODIUM CHLORIDE 0.9%) 1,000 ML PREOP ONCALL IV Sodium Chloride (SODIUM CHLORIDE) 5 ML ASDIR PRN IV Sodium Chloride (SODIUM CHLORIDE) 10 ML ASDIR SD N IV Sodium Chloride (SODIUM CHLORIDE 0.9%) 250 ML DIR PRN IV Results Findings/data: Laboratory Tests 06/09 06/09 06/09 06/08 06/08 1121 0730 0207 1958 1622 Chemistry Sodium (134 - 147 mEq/L) 136 Potassium (3.4 - 5.0 mEq/L) 3.6 Chloride (100 - 108 mEq/L) 105 Carbon Dioxide (21 - 33 mEq/l) 26 Anion Gap (0 - 20) 9 BUN (7 - 18 mg/dL) 14 Creatinine (0.6 - 1.3 mg/dL) 0.9 Glomerular Filtr Rate (70 - 80) 84.7 H Glucose (70 - 110 mg/dL) 138 H POC Glucose (70 - 110 MG/DL) 153 H 109 135 H 15 9 H Calcium (8.0 - 10.5 mg/dL) 8.2 Magnesium (1.80 - 2.40 mg/dL) 2.06 Laboratory Tests 06/09 0207 Hematology WBC (4.5 - 11.0 x10 3/uL) 10.4 RBC (4.00 - 5.60 x10 6/uL) 2.52 L Hgb (12.5 - 16.9 g/dL) 7.7 L Hct (37.5 - 50.7 %) 22.8 L MCV (81.0 - 99.0 fL) 90.5 MCH (27.0 - 33.0 pg) 30.6 MCHC (33.0 - 37.0 g/dL) 33.8 RDW (11.5 - 14.5 %) 14.4 Plt Count (150 - 400 x10 3/uL) 136 L MPV (7.0 - 9.0 fL) 11.1 H Neut % (Auto) (56.0 - 77.0 %) 70.2 Lymph % (Auto) (14.0 - 32.0 %) 16.1 [place] % (Auto) (4.8 - 9.0 %) 9.6 H Eos % (Auto) (0.3 - 3.7 %) 2.2 Baso % (Auto) (0.0 - 2.0 %) 0.4 Neut # (Auto) (2.0 - 7.6 x10 3/uL) 7.33 Lymph # (Auto) (1.0 - 3.8 x10 3/uL) 1.68 [place] # (Auto) (0.1 - 0.8 x10 3/uL) 1.00 H Eos # (Auto) (0.0 - 0.2 x10 3/uL) 0.23 H Baso # (Auto) (0.0 - 0.2 x10 3/uL) 0.04 Abs Immat Gran (auto) (0.00 - 0.03 x10 3/uL) 0. 16 H Add Manual Diff NO Immature Gran % (0.0 - 2.0 %) 1.5 Nucleated RBC % (0 - 0 %) 0.7 H Nucleated RBCs # (Man) (0.0 - 0.1 x10 3/uL) 0.0 7 Laboratory Tests 06/09/23 0207: [Embedded Image Not Available] Radiology data Recent Impressions: RADIOLOGY - XR CHEST 1 V 06/09 0635 Report Impression - Status: SIGNED Entered: 06/09/2023 0659 IMPRESSION: Minimal basilar opacities likely atelectasis or scarring. No new areas of airspace disease. 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 He is followed by his custom grinder Dr. Zaidi. He denies any history of stroke, denies any history of chest pains. He is on Eliquis therapy for his at rial fibrillation. Patient admitted for mitral valve replacement for flail mitral valve leaflet. Patient underwent MVR on 06/03/2023. Surgery was uneventf ul. 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 Paroxysmal atrial fibrillation status post faile d ablation Acute blood loss anemia Elective ventilator dependence Acute pulmonary insufficiency following major ca rdiothoracic surgery History of hypothyroidism 06/07 Appears neuro intact, multimodal pain control, a void sedatives and narcotics Sats well on room air encourage I-S, CXR reviewe d HD stable, remains in junctional rhythm with lux kup pacing, holding beta- blockers, EP consult Cr stable, voiding but urine retention, Hilario, Flomax, lactic acidosis cleared s /p resuscitation Oral diet as tolerated, bowel regimen, m ild transaminitis, replete hypokalemia WBC downtrending, no ID issues at this time Hgb appears stable, no evidence of active bleedi ng, CTs removed yesterday Blood glucose controlled with sliding scale insu arthur, on low-dose Lantus Tolerating PT/OT and out of bed, DVT prophylaxis with SCDs Discussed with CV surgery and ICU team Critical care time 33 minutes 06/08 Appears neuro intact, multimodal pain control, a void sedatives and narcotics Sats well on room air encourage I-S, CXR reviewe d HD stable, remains in junctional rhythm with lux kup pacing, holding beta- blockers, EP consult Cr stable, voiding but urine retention, Hilario, F les Oral diet as tolerated, bowel regimen, replete e lectrolytes WBC downtrending, no ID issues at this time Hgb appears stable, no evidence of active bleedi ng Blood glucose controlled with sliding scale insu arthur, on low-dose Lantus Tolerating PT/OT and out of bed, DVT prophylaxis with SCDs Discussed with CV surgery and ICU team Critical care time 31 minutes 06/08 Appears neuro intact, multimodal pain control, a void sedatives and narcotics Sats well on room air encourage I-S, CXR reviewe d HD stable, no pacing for the last 2 days, no gregorio ctional rhythm, holding beta- blockers, EP on board Norvasc added for blood pressure, echo o rdered by cardiology we will follow-up results Cr stable, good urine output Flomax Oral diet as tolerated, bowel regimen, replete e lectrolytes No ID issues at this time Hgb appears stable, no evidence of active bleedi ng Blood glucose controlled with sliding scale insu arthur Tolerating PT/OT and out of bed, DVT prophylaxis with SCDs Discussed with CV surgery and ICU team IPR evaluation Electronically Signed by Carrillo Jaramillo MD on at 1909 Addendum 1: 06/09/232325 by Carrillo Jaramillo MD Date of service 06/09/2023 Electronically Signed by Carrillo Jaramillo MD on at 2326 RPT #:[id number] END OF REPORT 2023-06-09 11:26:00-00:00 [id number] [place] [address] PATIENT NAME: ODIN ZENG ADMIT DATE: 06/03/23 ACCOUNT NO: [id number] ROOM NO: 3341 AGE: 83 REPORT TYPE: eELECTROCARDIOGRAM REPORT SEX: M ADMITTING PHYSICIAN:Abiodun Sanchez MD ATTENDING PHYSICIAN:Abiodun Sanchez MD Order: [id number] Test Reason : EKG Test Date/Time Stamp: SatJun 09 2023 11:26:41 Blood Pressure : / mmHG Vent. Rate : 063 BPM Atrial Rate : 000 BPM P-R Int : 000 ms QRS Dur : 086 ms QT Int : 532 ms P-R-T Axes : 000 019 056 degree s QTc Int : 544 ms Sinus bradycardia with 1st degree AV block Prolonged QT Abnormal ECG When compared with ECG of 07-JUN-2023 09:34, Significant changes have occurred Confirmed by TOÑA BERTRAND ([id number]) on 8:08:52 AM Referred By: Avila Sanchez Confirmed by:TOÑA BERTRAND at 0808 PATIENT NAME: ODIN ZENG 1 2023-06-09 09:14:00-00:00 [facility] ([facility]) Hospitalist Progress Note REPORT#:[id number] REPORT STATUS: Signed DATE:06/09/23 TIME: 09 PATIENT: ODIN ZENG UNIT #: [id number] ROOM/BED: 2202-1 : 40 AGE: 83 SEX: M ATTEND: Ramo Sanchez MD ADM AUTHOR: Shane Willoughby NP * ALL edits or amendments must be made on the [employer]/computer document * Subjective Chief complaint: He is stable. C/o some cough. His breathing is stable, on RA. Using IS. No Cp, fever, chills. BP and HR stable. Review of Systems Constitutional: Reports: fatigue, generalized weakness. Allergy/Immun: Denies: anaphylaxis, rhinorrhea. Respiratory: Denies: REYES (dyspnea on exer tion), pleurisy, pneumonia, productive cough (sputum ), SOB. Cardiovascular: Denies: chest pain, edema, orthopnea, palpitatio ns. GI: Denies: abdominal pain, GERD, nausea, vomiting. : Denies: dysuria, flank pain. Musculoskeletal: Denies: extremity pain, extremity swelling, join t pain. Endocrine: Denies: heat intolerance, polydipsia, polyphagia . Neuro: Denies: confusion, gait problem, headache, numbn ess. Objective General VS/I O: Vital Signs: Date Time Temp Pulse Resp B/P B/P Pulse O2 O2 F low FiO2 Mean Ox Delivery Rate 06/09 0803 98 Room air 06/09 0606 58 06/09 0501 54 28 126/60 86 99 06/09 0403 60 15 136/74 99 100 06/09 0400 97 Nasal 2 28 cannula 06/09 0301 54 21 120/61 84 98 06/09 0201 56 25 117/56 80 99 06/09 0100 57 26 126/64 90 99 06/09 0016 97 Nasal 2 28 cannula 06/09 0000 59 25 128/58 84 96 06/08 2300 60 27 118/59 81 95 06/08 2200 62 29 129/60 86 94 06/08 2130 94 06/08 2100 63 36 129/67 92 06/08 2034 97 Room air 0 21 06/08 2030 95 06/08 2000 36.5 06/08 2000 61 26 120/60 84 97 06/08 1900 60 26 124/60 86 94 06/08 1825 62 18 96 06/08 1800 65 140/67 96 98 06/08 1731 66 25 152/65 94 96 06/08 1719 62 23 129/60 87 98 06/08 1700 62 97 06/08 1600 36.4 06/08 1600 61 24 99 06/08 1500 70 23 94 06/08 1400 73 68 06/08 1330 63 25 118/61 83 98 06/08 1300 63 29 134/61 88 98 06/08 1231 62 128/60 86 97 06/08 1200 65 20 95 06/08 1152 62 33 98 06/08 1150 36.3 06/08 1100 64 32 106/58 76 96 06/08 1041 63 25 121/57 82 98 06/08 1001 70 15 136/63 91 97 06/08 0930 70 34 113/65 85 95 24 hour I O ending at 0700: 06/09 0700 06/08 1900 Intake Total 500.00 960 Output Total 725 360 Balance -225.00 600 Intake, IV 100.00 Intake, Oral 400 960 Number 1 Bowel Movements Output, Urine 725 360 Patient 84 kg Weight Weight Standing scale Measurement Method PATIENT WEIGHT: Weight (lb): 185 Weight (oz): 3.01 Weight (kg): 84.000 Medications: Active Meds + DC'd Last 24 Hrs Potassium Chloride (POTASSIUM CHLORIDE 20MEQ TAB .ER) 20 MEQ ONCE ONE PO (DC) Tamsulosin HCl (Flomax 0.4 mg) 0.4 MG DAILY 1700 PO Amiodarone HCl (CORDARONE) 200 MG BID PO Insulin Glargine (Semglee) 10 UNIT BID SUBQ Ipratropium [place] (ATROVENT) 500 MCG RTQ2H PRN PRN INH Cyanocobalamin (Vitamin B-12 500 mcg tab) 500 MC G DAILY PO Ferrous Sulfate (FERROUS SULFATE) 325 MG DAILY P O Bisacodyl (DULCOLAX) 10 MG ONCE PRN RECTAL Magnesium Hydroxide (MILK OF MAGNESIA) 30 ML ONC E PRN PO Atorvastatin Calcium (LIPITOR) 40 MG 2100 PO Insulin Human Lispro (HUMALOG) 0 AC HS SUBQ Polyethylene Glycol (MIRALAX) 17 GM DAILY PO Tamsulosin HCl (Flomax 0.4 mg) 0.4 MG PC BK PO Levothyroxine Sodium (Synthroid) 75 MCG DAILY 06 00 PO Aspirin (ASPIRIN) 81 MG DAILY PO Docusate Sodium (COLACE) 100 MG BID PO Sennosides (Senna Lax 8.6 MG TABLET) 17.2 MG BED TIME PO Acetaminophen (TYLENOL) 650 MG Q4H PRN PRN PO Acetaminophen (TYLENOL) 650 MG Q4H PRN PRN RECTA L Calcium Chloride (CALCIUM CHLORIDE) 1 GM ASDIR P RN IV Dextrose/Water (DEXTROSE 10% IN WATER) 125 ML DIR PRN IV (CKD) Dextrose/Water (DEXTROSE 10% IN WATER) 250 ML DIR PRN IV (CKD) Epinephrine (ADRENALIN CHLORIDE) 4 MG ASDIR IV Dextrose/Water (DEXTROSE 5% WATER) 246 ML Glucagon (GLUCAGON) 1 MG ASDIR PRN IM Insulin Human Regular (HumuLIN R) 100 UNIT ASDIR IV (CKD) Sodium Chloride (SODIUM CHLORIDE 0.9%) 99 ML Magnesium Sulfate (MAGNESIUM SULFATE 4GM/SWFI 10 0ML) 100 ML ASDIR PRN IV Magnesium Sulfate (MAGNESIUM SULFATE 2GM/SWFI 50 ML) 50 ML ASDIR PRN IV Magnesium Sulfate/Dextrose (MAGNESIUM SULFATE 1G M/D5W 100ML) 100 ML ASDIR PRN IV Nitroglycerin/Dextrose (NITROGLYCERIN 50,000MCG/ D5W 250ML) 250 ML ASDIR IV Norepinephrine Bitartrate (NOREPINEPHRINE 8 MG/N S 250 ML) 250 ML TITRATE IV Ondansetron HCl (ZOFRAN) 4 MG Q6H PRN PRN IV Oxycodone HCl (ROXICODONE) 5 MG Q4H PRN PRN PO ( DC) Oxycodone HCl (ROXICODONE) 10 MG Q4H PRN PRN PO (DC) Potassium Chloride (KCL 20MEQ/SWFI 100ML) 100 ML ASDIR PRN IV Sodium Bicarbonate (SODIUM BICARBONATE) 50 MEQ ASDIR PRN IV Sodium Chloride (SODIUM CHLORIDE) 20 ML ASDIR IV Lactated Ringer's (LACTATED RINGERS) 1,000 ML SD EOP ONCALL IV Lidocaine HCl (LIDOCAINE HCL/PF) 2 ML PREOP ONCA LL LOCAL Lidocaine HCl (LIDOCAINE HCL/PF) 2 ML PREOP ONCA LL LOCAL Sodium Chloride (SODIUM CHLORIDE 0.9%) 500 ML SD EOP ONCALL IV Sodium Chloride (SODIUM CHLORIDE 0.9%) 500 ML SD EOP ONCALL IV Sodium Chloride (SODIUM CHLORIDE 0.9%) 1,000 ML PREOP ONCALL IV Sodium Chloride (SODIUM CHLORIDE) 5 ML ASDIR PRN IV Sodium Chloride (SODIUM CHLORIDE) 10 ML ASDIR SD N IV Sodium Chloride (SODIUM CHLORIDE 0.9%) 250 ML DIR PRN IV Dietitian nutrition assessment The data set between the solid lines has been im ported from the dietitian's assessment. BMI Calculated: 28.2 Nutrition related diagnosis: Nutrition diagnosis details: Nutrition problem: Increased nutrient needs Nutrition etiology: Acute illness Nutrition signs and symptoms: HEALING NEEDS S/P SURGERY Nutrition prescription: 1. RECOMMEND CONTINUE CA RDIAC DIET, ADD EASY TO CHEW FOODS. 2. PROVIDE GLUCERNA TID WITH MEALS. 3. MO NITOR PO, WT, LABS, BM. Dietitian name: Flores Velasco, DIET Assessment completed: 06/04/23 Physical Exam General appearance: alert, awake, oriented Head/Eyes: atraumatic, normocephalic, PERRLA Neck: full range of motion, non-tender, normal thyroid, supple/no meningismus, no bruit/NL carotids, no JVD Cardiovascular: normal capillary refill, normal heart sounds, regular rate rhythm Respiratory: aerating well, symmetric expansion, no distress Abdomen: non-tender, normal bowel sounds, soft Genitourinary: no bladder distention, no flank p ain, no urinary catheter Extremities: no calf tenderness, no clubbing, no cyanosis Musculoskeletal: no muscle spasm Neuro/CERTIFIED NURSES AIDE: alert, oriented X 3, CNII-XII intact Results Findings/Data: Laboratory Tests 06/09 06/09 06/08 06/08 06/08 0730 0207 1958 1622 1124 Chemistry Sodium (134 - 147 mEq/L) 136 Potassium (3.4 - 5.0 mEq/L) 3.6 Chloride (100 - 108 mEq/L) 105 Carbon Dioxide (21 - 33 mEq/l) 26 Anion Gap (0 - 20) 9 BUN (7 - 18 mg/dL) 14 Creatinine (0.6 - 1.3 mg/dL) 0.9 Glomerular Filtr Rate (70 - 80) 84.7 H Glucose (70 - 110 mg/dL) 138 H POC Glucose (70 - 110 MG/DL) 109 135 H 159 H 18 6 H Calcium (8.0 - 10.5 mg/dL) 8.2 Magnesium (1.80 - 2.40 mg/dL) 2.06 Laboratory Tests 06/09 0207 Hematology WBC (4.5 - 11.0 x10 3/uL) 10.4 RBC (4.00 - 5.60 x10 6/uL) 2.52 L Hgb (12.5 - 16.9 g/dL) 7.7 L Hct (37.5 - 50.7 %) 22.8 L MCV (81.0 - 99.0 fL) 90.5 MCH (27.0 - 33.0 pg) 30.6 MCHC (33.0 - 37.0 g/dL) 33.8 RDW (11.5 - 14.5 %) 14.4 Plt Count (150 - 400 x10 3/uL) 136 L MPV (7.0 - 9.0 fL) 11.1 H Neut % (Auto) (56.0 - 77.0 %) 70.2 Lymph % (Auto) (14.0 - 32.0 %) 16.1 [place] % (Auto) (4.8 - 9.0 %) 9.6 H Eos % (Auto) (0.3 - 3.7 %) 2.2 Baso % (Auto) (0.0 - 2.0 %) 0.4 Neut # (Auto) (2.0 - 7.6 x10 3/uL) 7.33 Lymph # (Auto) (1.0 - 3.8 x10 3/uL) 1.68 [place] # (Auto) (0.1 - 0.8 x10 3/uL) 1.00 H Eos # (Auto) (0.0 - 0.2 x10 3/uL) 0.23 H Baso # (Auto) (0.0 - 0.2 x10 3/uL) 0.04 Abs Immat Gran (auto) (0.00 - 0.03 x10 3/uL) 0. 16 H Add Manual Diff NO Immature Gran % (0.0 - 2.0 %) 1.5 Nucleated RBC % (0 - 0 %) 0.7 H Nucleated RBCs # (Man) (0.0 - 0.1 x10 3/uL) 0.0 7 Radiology data: Recent Impressions: RADIOLOGY - XR CHEST 1 V 06/09 0635 Report Impression - Status: SIGNED Entered: 06/09/2023 0659 IMPRESSION: Minimal basilar opacities likely atelectasis or scarring. No new areas of airspace disease. Impression By: [email or web address] - Trev Gonsalez Results: labs reviewed, vital signs reviewed, vi mercedes signs stable, current med profile rev'd Interpretation I independently reviewed the [ ] and my interpre tation is [ ] Treatment Prophylaxis Treatment Prophylaxis Oxygen: room air Diagnosis, Assessment Plan Hospital course to date: Assessment and Plan: - Mitral regurgitation/Paroxysmal atrial fibrill s/p Mitral valve replacement and Pulmonary vein isolation, Isolation of left atrial appendage. - CP and SOB due to MR. - HX of atrial fibrillation, status post failed ablation in the past, on Eliquis therapy, diabetes, hypothyroid. Plan: CVICU. Aggressive IS. Monitor Respiratory status, breathing tx, o2 sup port. Continue BB and Amiodarone, Lipitor. Pain meds. Antiemetics. Follow labs and replace as needed. SCDs for dVT ppx. Continue Monitor. Consultants: anesthesiology, cardiology, cardiov ascular surgery, critical/ paper testing supervisor, hospitalist Code status: full code Plan discussed with: patient, admitting physicia n, consultants, nurse Electronically Signed by Shane Willoughby BACK HOE OPERATOR on at 0917 RPT #:[id number] END OF REPORT 2023-06-09 07:58:00-00:00 [facility] ([facility]) Adult General Consultation REPORT#:[id number] REPORT STATUS: Signed DATE:06/09/23 TIME: 0758 PATIENT: ODIN ZENG UNIT #: [id number] ROOM/BED: [place] [address] : 40 AGE: 83 SEX: M ATTEND: Ramo Sanchez MD ADM AUTHOR: Chuy Andrew * ALL edits or amendments must be made on the [employer]/computer document * History of Present Illness Reason for consult: PMR consultation Chief complaint: Weakness post MVR Free Text HPI Notes Free Text HPI Notes: 83-year-old male with PMH of A-fib, status post failed ablation, diabetes, hypothyroidism who was found to have significant mitral valve regurgitation and flail mitral valve leaflet. Patient was admitted for surgery and had MVR. He has postoperative anemia and weakness. We have alexia daly asked to see him in consultation for physical medicine and rehabilit ation evaluation. History - Adult longitudinal Additional medical history: 1. Atrial fibrillation on Eliquis 2. Hypothyroidism 3. Diabetes mellitus Additional surgical history: 1. afib ablation Additional family history: Reviewed and non contributory Alcohol use: Denies EtOH use Drug use: Denies recreational drugs Smoking status for patients 13 years old or olde r: Former Smoker Packs per day: 3 Years smoked: 18 Pack years: 54 Medications: Home Medications: Medication Dose/Rte/Freq Days Qty Entered Last Max Daily Dose Reviewed POTASSIUM CHLORIDE ER 8 MEQ PO DAILY 05/17/23 0 06/03/23 (MICRO-K) 1233 1120 Strength: 8 MEQ CAP.ER METOPROLOL TARTRATE 50 MG PO BID 05/17/2306/03 (LOPRESSOR) 1234 1120 Strength: 50 MG TAB FUROSEMIDE (LASIX) 40 MG PO DAILY 05/17/2305/18 Strength: 40 MG TAB 1235 1120 LEVOTHYROXINE 75 MCG PO DAILY 05/17/23 06/03/23 (SYNTHROID) 1235 1120 Strength: 75 MCG TAB TAMSULOSIN ER (FLOMAX) 0.4 MG PO DAILY 05/17/23 06/03/23 Strength: 0.4 MG CAP.SR.24H 1241 1120 APIXABAN (ELIQUIS) 5 MG PO DAILY 05/17/2306/03 Strength: 5 MG TAB 1234 1120 metFORMIN (GLUCOPHAGE) 500 MG PO DAILY 05/17/23 06/03/23 Strength: 500 MG TAB 1235 1120 Current Hospital Medications: Autonomic Drugs Sig/Stephanie Start time Last Medication Dose Route Stop Time Status Admin Tamsulosin HCl 0.4 MG DAILY 1700 06/08 1700 AC 06/08 (Flomax 0.4 mg) PO 07/08 1659 1627 Ipratropium [place] 500 MCG RTQ2H PRN PRN 06/06 1521 AC 06/09 (ATROVENT) INH 07/06 1520 0358 Tamsulosin HCl 0.4 MG PC BK 06/04 0900 AC 06/08 (Flomax 0.4 mg) PO 07/04 0859 0745 Epinephrine 4 MG ASDIR 06/03 1530 AC (ADRENALIN CHLORIDE) IV 07/03 1529 Dextrose/Water 246 ML (DEXTROSE 5% WATER) Norepinephrine 250 ML TITRATE 06/03 1530 AC Bitartrate IV 07/03 1529 (NOREPINEPHRINE 8 MG/ NS 250 ML) Blood Formation,Coagulation Sig/Stephanie Start time Last Medication Dose Route Stop Time Status Admin Ferrous Sulfate 325 MG DAILY 06/06 09 AC 05/19 2 (FERROUS SULFATE) PO 07/06 0859 0745 Cardiovascular Drugs Sig/Stephanie Start time Last Medication Dose Route Stop Time Status Admin Amiodarone HCl 200 MG BID 06/06 2100 AC 06/08 (CORDARONE) PO 07/06 Atorvastatin Calcium 40 MG 2100 06/04 2100 AC 06/08 (LIPITOR) PO 07/04 Nitroglycerin/ 250 ML ASDIR 06/03 1530 AC Dextrose IV 07/03 1529 (NITROGLYCERIN 50,000MCG/D5W 250ML) Lidocaine HCl 2 ML PREOP ONCALL 05/31 1615 AC (LIDOCAINE HCL/PF) LOCAL 06/30 2359 Lidocaine HCl 2 ML PREOP ONCALL 05/31 1615 AC (LIDOCAINE HCL/PF) LOCAL 06/30 2359 Central Nervous System Agents Sig/Stephanie Start time Last Medication Dose Route Stop Time Status Admin Aspirin 81 MG DAILY 06/03 2121 AC 06/08 (ASPIRIN) PO 07/03 212 0745 Gabapentin 200 MG BID 06/03 2100 DC 06/08 (NEURONTIN) PO 06/08 0901 0744 Acetaminophen 650 MG Q4H PRN PRN 06/03 1530 AC 06/08 (TYLENOL) PO 07/03 1529 2107 Acetaminophen 650 MG Q4H PRN PRN 06/03 1530 AC (TYLENOL) RECTAL 07/03 1529 Magnesium Sulfate 100 ML ASDIR PRN 06/03 1530 AC (MAGNESIUM SULFATE IV 07/03 1529 4GM/SWFI 100ML) Magnesium Sulfate 50 ML ASDIR PRN 06/03 1530 AC (MAGNESIUM SULFATE IV 07/03 1529 2GM/SWFI 50ML) Magnesium Sulfate/ 100 ML ASDIR PRN 06/03 1530 AC 06/09 Dextrose IV 07/03 1529 0337 (MAGNESIUM SULFATE 1GM/D5W 100ML) Oxycodone HCl 5 MG Q4H PRN PRN 06/03 1530 DC (ROXICODONE) PO 06/08 1529 1401 Oxycodone HCl 10 MG Q4H PRN PRN 06/03 1530 DC (ROXICODONE) PO 06/08 1529 Electrolytic, Caloric, And Jagdish Sig/Stephanie Start time Last Medication Dose Route Stop Time Status Admin Calcium Chloride 1 GM ASDIR PRN 06/03 1530 AC (CALCIUM CHLORIDE) IV 07/03 1529 Dextrose/Water 125 ML ASDIR PRN 06/03 1530 CKD (DEXTROSE 10% IN IV 07/03 1529 WATER) Dextrose/Water 250 ML ASDIR PRN 06/03 1530 CKD (DEXTROSE 10% IN IV 07/03 1529 WATER) Potassium Chloride 100 ML ASDIR PRN 06/03 1530 AC 06/03 (KCL 20MEQ/SWFI IV 07/03 1529 2258 100ML) Sodium Bicarbonate 50 MEQ ASDIR PRN 06/03 1530 AC 06/03 (SODIUM BICARBONATE) IV 07/03 1529 1731 Sodium Chloride 20 ML ASDIR 06/03 1145 AC (SODIUM CHLORIDE) IV 07/03 1144 Lactated Ringer's 1,000 ML PREOP ONCALL 05/31 1 615 AC (LACTATED RINGERS) IV 06/30 2359 Sodium Chloride 500 ML PREOP ONCALL 05/31 1615 AC (SODIUM CHLORIDE IV 06/30 2359 0.9%) Sodium Chloride 500 ML PREOP ONCALL 05/31 1615 AC (SODIUM CHLORIDE IV 06/30 2359 0.9%) Sodium Chloride 1,000 ML PREOP ONCALL 05/31 161 5 AC (SODIUM CHLORIDE IV 06/30 2359 0.9%) Sodium Chloride 5 ML ASDIR PRN 05/31 1615 AC (SODIUM CHLORIDE) IV 08/13 1614 Sodium Chloride 10 ML ASDIR PRN 05/31 1615 AC (SODIUM CHLORIDE) IV 06/30 1614 Sodium Chloride 250 ML ASDIR PRN 05/31 1615 AC (SODIUM CHLORIDE IV 06/30 1614 0.9%) Gastrointestinal Drugs Sig/Stephanie Start time Last Medication Dose Route Stop Time Status Admin Bisacodyl 10 MG ONCE PRN 06/05 1200 AC (DULCOLAX) RECTAL 07/05 1159 Magnesium Hydroxide 30 ML ONCE PRN 06/05 1200 A C (MILK OF MAGNESIA) PO Polyethylene Glycol 17 GM DAILY 06/04 0900 AC 0 06/08 (MIRALAX) PO 07/04 08 0744 Docusate Sodium 100 MG BID 06/03 2100 AC 06/08 (COLACE) PO 07/03 2059 0745 Sennosides 17.2 MG BEDTIME 06/03 2100 AC 06/04 (Senna Lax 8.6 MG PO 07/03 TABLET) Ondansetron HCl 4 MG Q6H PRN PRN 06/03 1530 AC (ZOFRAN) IV 07/03 1529 Hormones And Synthetic Substit Sig/Stephnaie Start time Last Medication Dose Route Stop Time Status Admin Insulin Glargine 10 UNIT BID 06/06 2100 AC 2 2 (Semglee) SUBQ 07/06 Insulin Human Lispro 0 AC HS 06/04 1130 AC 2 2 (HUMALOG) SUBQ 07/04 1129 1627 Levothyroxine Sodium 75 MCG DAILY 0600 06/04 06 16 AC 06/09 (Synthroid) PO 07/04 0615 0607 Glucagon 1 MG ASDIR PRN 06/03 1530 AC (GLUCAGON) IM 07/03 1529 Insulin Human Regular 100 UNIT ASDIR 06/03 1530 CKD (HumuLIN R) IV 07/03 1529 Sodium Chloride 99 ML (SODIUM CHLORIDE 0.9%) Skin And Mucous Membrane Agent Sig/Stephanie Start time Last Medication Dose Route Stop Time Status Admin Mupirocin 1 APPLIC BID 06/03 2100 DC 06/08 (BACTROBAN 2% 22 GM NASAL 06/08 0901 0746 OINTMENT) Vitamins Sig/Stephanie Start time Last Medication Dose Route Stop Time Status Admin Cyanocobalamin 500 MCG DAILY 06/06 0900 AC 05/19 2 (Vitamin B-12 500 PO 07/06 0859 0745 mcg tab) Allergies: Coded Allergies: No Known Allergies (05/17/23) Review of Systems Constitutional: generalized weakness. Musculoskeletal: thoracic pain. All systems rev neg: except as marked Objective VS/I O: Last Documented: Result Date Time Pulse 58 06/09 0606 Pulse Ox 99 06/09 0501 B/P 126/60 06/09 0501 B/P Mean 86 06/09 0501 Resp 28 06/09 0501 FiO2 28 06/09 0400 O2 Delivery Nasal cannula 06/09 040 O2 Flow Rate 2 06/09 0400 Temp 97.7 06/08 2000 24 hour I O ending at 0700: 06/09 0700 06/08 1900 Intake Total 500.00 960 Output Total 725 360 Balance -225.00 600 Intake, IV 100.00 Intake, Oral 400 960 Number 1 Bowel Movements Output, Urine 725 360 Patient 185 lb Weight Weight Standing scale Measurement Method PATIENT WEIGHT: Weight (lb): 185 Weight (oz): 3.01 Weight (kg): 84.000 General appearance: alert, awake, no acute distr ess Head/Eyes: atraumatic, clear cornea, EOMI ENT: normal dentition, normal ear left, normal e ar right Neck: full range of motion, non-tender, no lymph adenopathy Cardiovascular: normal capillary refill, pedal p ulses present, regular rate rhythm Respiratory: aerating well, symmetric expansion Abdomen: soft, non-tender, no guarding, no rebou nd Extremities: moves all, no edema, no clubbing, n o cyanosis Musculoskeletal: normal inspection, no muscle sp asm Neuro/CERTIFIED NURSES AIDE: alert, oriented X 3 Skin: no rash, surgical incisions C/D/I Lymphatics: no lymphadenopathy Results Findings/Data: Laboratory Tests: 06/09 06/09 06/08 06/08 0730 0207 1958 1622 Chemistry Sodium (134 - 147 mEq/L) 136 Potassium (3.4 - 5.0 mEq/L) 3.6 Chloride (100 - 108 mEq/L) 105 Carbon Dioxide (21 - 33 mEq/l) 26 Anion Gap (0 - 20) 9 BUN (7 - 18 mg/dL) 14 Creatinine (0.6 - 1.3 mg/dL) 0.9 Glomerular Filtr Rate (70 - 80) 84.7 H Glucose (70 - 110 mg/dL) 138 H POC Glucose (70 - 110 MG/DL) 109 135 H 159 H Calcium (8.0 - 10.5 mg/dL) 8.2 Magnesium (1.80 - 2.40 mg/dL) 2.06 Hematology WBC (4.5 - 11.0 x10 3/uL) 10.4 RBC (4.00 - 5.60 x10 6/uL) 2.52 L Hgb (12.5 - 16.9 g/dL) 7.7 L Hct (37.5 - 50.7 %) 22.8 L MCV (81.0 - 99.0 fL) 90.5 MCH (27.0 - 33.0 pg) 30.6 MCHC (33.0 - 37.0 g/dL) 33.8 RDW (11.5 - 14.5 %) 14.4 Plt Count (150 - 400 x10 3/uL) 136 L MPV (7.0 - 9.0 fL) 11.1 H Neut % (Auto) (56.0 - 77.0 %) 70.2 Lymph % (Auto) (14.0 - 32.0 %) 16.1 [place] % (Auto) (4.8 - 9.0 %) 9.6 H Eos % (Auto) (0.3 - 3.7 %) 2.2 Baso % (Auto) (0.0 - 2.0 %) 0.4 Neut # (Auto) (2.0 - 7.6 x10 3/uL) 7.33 Lymph # (Auto) (1.0 - 3.8 x10 3/uL) 1.68 [place] # (Auto) (0.1 - 0.8 x10 3/uL) 1.00 H Eos # (Auto) (0.0 - 0.2 x10 3/uL) 0.23 H Baso # (Auto) (0.0 - 0.2 x10 3/uL) 0.04 Abs Immat Gran (auto) (0.00 - 0.03 x10 3/uL) 0. 16 H Add Manual Diff NO Immature Gran % (0.0 - 2.0 %) 1.5 Nucleated RBC % (0 - 0 %) 0.7 H Nucleated RBCs # (Man) (0.0 - 0.1 x10 3/uL) 0. 07 06/08 1124 Chemistry POC Glucose (70 - 110 MG/DL) 186 H Recent Impressions: RADIOLOGY - XR CHEST 1 V 06/09 0635 Report Impression - Status: SIGNED Entered: 06/09/2023 0659 IMPRESSION: Minimal basilar opacities likely atelectasis or scarring. No new areas of airspace disease. Impression By: Radha - Trev Gonsalez Treatment Prophylaxis Treatment Prophylaxis Oxygen: nasal cannula Diagnosis, Assessment Plan Free Text DxA P Notes Free Text DxA P Notes: Severe mitral regurgitation Status post mitral valve replacement Impaired ADLs, mobility, gait Generalized weakness Postoperative anemia Postoperative pain Plan: Continue PT/OT Out of bed to chair Work on strength, bed mobility, transfers, gait Sternal precautions Increase endurance Fall precautions Monitor p.o. intake and nutrition Strict decubitus precautions Continue current medications Monitor labs closely Advance therapies as tolerated We will see how he does over weekend Thank you for referral Electronically Signed by Chuy Andrew on 0 06/09/23 at 1955 RPT #:[id number] END OF REPORT 2023-06-09 07:06:00-00:00 [facility] Cardiothoracic Surgery Prog REPORT#:[id number] REPORT STATUS: Signed DATE:06/09/23 TIME: 705 PATIENT: ODIN ZENG UNIT #: [id number] ROOM/BED: 3341-1 : 40 AGE: 83 SEX: M ATTEND: Ramo Sanchez MD ADM AUTHOR: Kerri Cassidy Physic * ALL edits or amendments must be made on the [employer]/computer document * General Post-op: day 6 Status post: 06/03/23 PROCEDURES: 1. Mitral valve replacement (29 Mitris valve). 2. Pulmonary vein isolation. 3. Isolation of left atrial appendage. Subjective Chief complaint: Resting comfortable. Denies compliants Review of Systems Constitutional: Denies: fatigue, fever. Skin: Denies: rash, swelling. Eyes: Denies: diplopia. ENT: Denies: hearing loss, mouth pain. Respiratory: Denies: REYES (dyspnea on exertion), SOB. Cardiovascular: Denies: chest pain, REYES (dyspnea on exertion). GI: Denies: constipation, diarrhea. Musculoskeletal: Denies: joint pain, joint swelling. Heme: Denies: bleeding, bruising. All systems rev neg: except as marked Objective General VS/I O Last Documented: Result Date Time Pulse 58 06/09 0606 Pulse Ox 99 06/09 0501 B/P 126/60 06/09 0501 B/P Mean 86 06/09 0501 Resp 28 06/09 0501 FiO2 28 06/09 0400 O2 Delivery Nasal cannula 06/09 0400 O2 Flow Rate 2 06/09 0400 Temp 97.7 06/08 2000 24 hour I O ending at 0700: 06/09 0700 06/08 1900 Intake Total 500.00 960 Output Total 725 360 Balance -225.00 600 Intake, IV 100.00 Intake, Oral 400 960 Number 1 Bowel Movements Output, Urine 725 360 Patient 84 kg Weight Weight Standing scale Measurement Method PATIENT WEIGHT: Weight (lb): 185 Weight (oz): 3.01 Weight (kg): 84.000 Physical Exam General appearance: alert, awake, oriented Wound/incision: Location: Sternum clean and dry HEENT: mucosal membranes moist Neck: non-tender Cardiovascular: BP/pulses equal bilat. Respiratory: decreased breath sounds Abdomen: soft, non-tender Extremities: dry, moves all Musculoskeletal: full range of motion Neuro/CERTIFIED NURSES AIDE: alert, oriented X 3 Skin: dry Diagnosis, Assessment Plan Hospital course to date: This is an 83-year-old gentleman with a past [facility] history of atrial fibrillation, status post failed ablation in the past, on Eliquis therapy, diabetes, hypothyroid, who was found to have sig nificant mitral valve regurgitation with a flail mitral valve leaflet. He is followed by his custom grinder Dr. Lobito hernandez. He has an outpatient left heart catheterization scheduled in the near future. He denies any history of stroke, denies any hist ory of chest pains. He is on Eliquis therapy for his atrial fibrilla tion. Patient admitted for mitral valve replacement fo r flail mitral valve leaflet. Assessment/plan 1. Mitral valve regurgitation 2. Atrial fibrillation Patient is admitted for mitr al valve replacement with PVI, left atrial appendage amputation. This was discussed with the patient by Dr. Duong siddiqi. The risk of the operation including STS score, r isk of , bleeding, heart attack, stroke, renal failur e, dialysis, prolonged ICU stay, tracheostomy, need for long-term rehabilitation etc. was discussed with the patient in depth. Patient's questions were ans wered and the patient agreed to proceed with surgery 06/03/23 1. Mitral valve replacement (29 Mitris valve). 2. Pulmonary vein isolation. 3. Isolation of left atrial appendage. 06/04/23 POD 1 AAOx3 Respiratory: On room air 94% Encourage IS, Deep Breathing, CXR reviewed monitor chest tube drainage Cardiac: Atrial paced, baseline appears to be es [place] junctional GI: +gas, Continue Bowel regimen : Hilario in place UO: 800 Continue PT/OT DVT prophylaxis, SCDs in place Labs reveiwed-hemoglobin low we will give 1 unit of blood Patient seen and examined by Dr. Sanchez. Plan o f care discussed with multidisciplinary team 06/05/23 POD 2 S/P MVR, PVI, ALAA AAOx3 Respiratory: On room air 94% Encourage IS, Deep Breathing, CXR reviewed DC chest tube, Cardiac: A Paced @ 80 with V conduction, underlying rate 50-60, Obtain 12 lead GI: Continue Bowel regimen UO: 600 Continue PT/OT DVT prophylaxis, SCDs in place Labs reveiwed Patient seen and examined by Dr. Sanchez. Plan o f care discussed with multidisciplinary team Dc neck line. continue supportive care. 06/06/23 POD 3 S/P MVR, PVI, ALAA AAOx3 Respiratory: On room air 94% Encourage IS, Deep Breathing, CXR reviewed Cardiac: A Paced @ 80 with u nderlying bradycardia, 40s, beta-raul on hold we will consult EP. GI: Continue Bowel regimen UO: 1650 Continue PT/OT DVT prophylaxis, SCDs in place Labs reveiwed Patient seen and examined by Dr. Sanchez. Plan o f care discussed with multidisciplinary team 06/07/23 POD 4 S/P MVR, PVI, ALAA AAOx3 Respiratory: On room air 94% Encourage IS, Deep Breathing, CXR reviewed Cardiac: A Paced @ 80 with underlying bradycardi a, 40s, beta-raul on hold. EP consulted GI: Continue Bowel regimen UO: 1325 Continue PT/OT DVT prophylaxis, SCDs in place Labs reveiwed Patient seen and examined by Dr. Sanchez. Plan o f care discussed with multidisciplinary team BEBETO Hilario today. Restart Flomax Appreciate EP input, continue ICU supportive car e 06/09/23 POD 6 S/P MVR, PVI, ALAA AAOx3 Respiratory: On room air 94% Encourage IS, Deep Breathing, CXR reviewed Cardiac: Appears junctional rhythm, rate 80s , w ill obtain EKG, EP following GI: Continue Bowel regimen UO: 725 Continue PT/OT DVT prophylaxis, SCDs in place Labs reveiwed Consult inpatient rehab Will obtain DVT studies Patient seen and examined by Dr. Sanchez. Plan o f care discussed with multidisciplinary team Consultants: anesthesiology, cardiology, cardiov ascular surgery, critical/ paper testing supervisor, hospitalist at 1108 at 1301 RPT #:[id number] END OF REPORT 2023-06-08 12:50:00-00:00 [facility] Critical Care Progress Note REPORT#:[id number] REPORT STATUS: Signed DATE:06/08/23 TIME: 1250 PATIENT: ODIN ZENG UNIT #: [id number] ROOM/BED: [place] [address] : 40 AGE: 83 SEX: M ATTEND: Ramo Sanchez MD ADM AUTHOR: Janet Canales MD * ALL edits or amendments must be made on the [employer]/computer document * Subjective Chief complaint: Severe mitral valve prolapse Myxomatous anterior leaflet Paroxysmal atrial fibrillation s/p failed ablat ion Acute blood loss anemia Elective ventilator dependence Acute pulmonary insufficiency following major c ardiothoracic surgery History of hypothyroidism HPI: 83-year-old gentleman with a past medical history of atrial fibrillation, status post failed ablation in the past, on Eliquis therapy, diabetes, hypothyroid, who was found to have significant mitral valve regur gitation with a flail mitral valve leaflet. He is followed by his cardiologis t Dr. Zaidi. He denies any history of stroke, denies any history of chest pains. He is on Eliquis therapy for his atrial fibrillation. Patient adm itted for mitral valve replacement for flail mitral valve leaflet. Patient underwent MV R on 06/03/2023. Surgery was uneventful. Patient is orally intubated and on mechanical ventilation. Patient was extubated in a timely fashion. Objective General Medications: Active Meds + DC'd Last 24 Hrs Tamsulosin HCl (Flomax 0.4 mg) 0.4 MG DAILY 1700 PO Potassium Chloride (POTASSIUM CHLORIDE 20MEQ TAB .ER) 20 MEQ ONCE ONE PO (DC) Amiodarone HCl (CORDARONE) 200 MG BID PO Insulin Glargine (Semglee) 10 UNIT BID SUBQ Ipratropium [place] (ATROVENT) 500 MCG RTQ2H PRN PRN INH Cyanocobalamin (Vitamin B-12 500 mcg tab) 500 MC G DAILY PO Ferrous Sulfate (FERROUS SULFATE) 325 MG DAILY P O Bisacodyl (DULCOLAX) 10 MG ONCE PRN RECTAL Magnesium Hydroxide (MILK OF MAGNESIA) 30 ML ONC E PRN PO Atorvastatin Calcium (LIPITOR) 40 MG 2100 PO Insulin Human Lispro (HUMALOG) 0 AC HS SUBQ Polyethylene Glycol (MIRALAX) 17 GM DAILY PO Tamsulosin HCl (Flomax 0.4 mg) 0.4 MG PC BK PO Levothyroxine Sodium (Synthroid) 75 MCG DAILY 06 00 PO Aspirin (ASPIRIN) 81 MG DAILY PO Docusate Sodium (COLACE) 100 MG BID PO Gabapentin (NEURONTIN) 200 MG BID PO (DC) Mupirocin (BACTROBAN 2% 22 GM OINTMENT) 1 APPLIC BID NASAL (DC) Sennosides (Senna Lax 8.6 MG TABLET) 17.2 MG BED TIME PO Acetaminophen (TYLENOL) 650 MG Q4H PRN PRN PO Acetaminophen (TYLENOL) 650 MG Q4H PRN PRN RECTA L Calcium Chloride (CALCIUM CHLORIDE) 1 GM ASDIR P RN IV Dextrose/Water (DEXTROSE 10% IN WATER) 125 ML DIR PRN IV (CKD) Dextrose/Water (DEXTROSE 10% IN WATER) 250 ML DIR PRN IV (CKD) Epinephrine (ADRENALIN CHLORIDE) 4 MG ASDIR IV Dextrose/Water (DEXTROSE 5% WATER) 246 ML Glucagon (GLUCAGON) 1 MG ASDIR PRN IM Insulin Human Regular (HumuLIN R) 100 UNIT ASDIR IV (CKD) Sodium Chloride (SODIUM CHLORIDE 0.9%) 99 ML Magnesium Sulfate (MAGNESIUM SULFATE 4GM/SWFI 10 0ML) 100 ML ASDIR PRN IV Magnesium Sulfate (MAGNESIUM SULFATE 2GM/SWFI 50 ML) 50 ML ASDIR PRN IV Magnesium Sulfate/Dextrose (MAGNESIUM SULFATE 1G M/D5W 100ML) 100 ML ASDIR PRN IV Nitroglycerin/Dextrose (NITROGLYCERIN 50,000MCG/ D5W 250ML) 250 ML ASDIR IV Norepinephrine Bitartrate (NOREPINEPHRINE 8 MG/N S 250 ML) 250 ML TITRATE IV Ondansetron HCl (ZOFRAN) 4 MG Q6H PRN PRN IV Oxycodone HCl (ROXICODONE) 5 MG Q4H PRN PRN PO Oxycodone HCl (ROXICODONE) 10 MG Q4H PRN PRN PO Potassium Chloride (KCL 20MEQ/SWFI 100ML) 100 ML ASDIR PRN IV Sodium Bicarbonate (SODIUM BICARBONATE) 50 MEQ A SDIR PRN IV Sodium Chloride (SODIUM CHLORIDE) 20 ML ASDIR IV Lactated Ringer's (LACTATED RINGERS) 1,000 ML SD EOP ONCALL IV Lidocaine HCl (LIDOCAINE HCL/PF) 2 ML PREOP ONCA LL LOCAL Lidocaine HCl (LIDOCAINE HCL/PF) 2 ML PREOP ONCA LL LOCAL Sodium Chloride (SODIUM CHLORIDE 0.9%) 500 ML SD EOP ONCALL IV Sodium Chloride (SODIUM CHLORIDE 0.9%) 500 ML SD EOP ONCALL IV Sodium Chloride (SODIUM CHLORIDE 0.9%) 1,000 ML PREOP ONCALL IV Sodium Chloride (SODIUM CHLORIDE) 5 ML ASDIR PRN IV Sodium Chloride (SODIUM CHLORIDE) 10 ML ASDIR SD N IV Sodium Chloride (SODIUM CHLORIDE 0.9%) 250 ML DIR PRN IV Status post: MVR (mitral valve replacement) Physical Exam Head/eyes: atraumatic, EOMI, normocephalic, PERR L ENT: moist mucosal membranes, normal sinus Neck: non-tender, no JVD, no masses or swelling Cardiovascular: normal capillary refill, normal heart sounds, regular rate and rhythm Respiratory: aerating well, clear to auscultatio n, symmetric expansion, no distress Abdomen: soft, non-tender, no distention, no gua rding, no rebound Genitourinary: no flank pain Extremities: no clubbing, no cyanosis, no edema Neuro/CERTIFIED NURSES AIDE: alert, oriented X 3, CNII-XII intact, normal speech, reflexes equal bilat, no motor deficits, no sensory deficits Skin: dry, normal color, normal temperature, no rash Psychiatry: normal affect, n ormal judgment/insight, normal mood, not homicidal, not suicidal, no hallucinations Results Findings/data: Laboratory Tests 06/08 06/08 06/08 06/07 06/07 1124 0733 1 2006 1632 Chemistry Sodium (134 - 147 mEq/L) 137 Potassium (3.4 - 5.0 mEq/L) 3.6 Chloride (100 - 108 mEq/L) 104 Carbon Dioxide (21 - 33 mEq/l) 26 Anion Gap (0 - 20) 11 BUN (7 - 18 mg/dL) 12 Creatinine (0.6 - 1.3 mg/dL) 0.9 Glomerular Filtr Rate (70 - 80) 84.7 H Glucose (70 - 110 mg/dL) 170 H POC Glucose (70 - 110 MG/DL) 186 H 148 H 170 H 207 H Calcium (8.0 - 10.5 mg/dL) 7.8 L Magnesium (1.80 - 2.40 mg/dL) 2.04 Laboratory Tests 06/08 223 Hematology WBC (4.5 - 11.0 x10 3/uL) 10.2 RBC (4.00 - 5.60 x10 6/uL) 2.65 L Hgb (12.5 - 16.9 g/dL) 7.9 L Hct (37.5 - 50.7 %) 24.2 L MCV (81.0 - 99.0 fL) 91.3 MCH (27.0 - 33.0 pg) 29.8 MCHC (33.0 - 37.0 g/dL) 32.6 L RDW (11.5 - 14.5 %) 14.0 Plt Count (150 - 400 x10 3/uL) 107 L MPV (7.0 - 9.0 fL) 11.3 H Neut % (Auto) (56.0 - 77.0 %) 67.1 Lymph % (Auto) (14.0 - 32.0 %) 18.6 [place] % (Auto) (4.8 - 9.0 %) 9.8 H Eos % (Auto) (0.3 - 3.7 %) 2.5 Baso % (Auto) (0.0 - 2.0 %) 0.3 Neut # (Auto) (2.0 - 7.6 x10 3/uL) 6.83 Lymph # (Auto) (1.0 - 3.8 x10 3/uL) 1.89 [place] # (Auto) (0.1 - 0.8 x10 3/uL) 1.00 H Eos # (Auto) (0.0 - 0.2 x10 3/uL) 0.25 H Baso # (Auto) (0.0 - 0.2 x10 3/uL) 0.03 Abs Immat Gran (auto) (0.00 - 0.03 x10 3/uL) 0. 17 H Add Manual Diff NO Immature Gran % (0.0 - 2.0 %) 1.7 Nucleated RBC % (0 - 0 %) 0.8 H Nucleated RBCs # (Man) (0.0 - 0.1 x10 3/uL) 0.0 8 Laboratory Tests 06/08/23 0223: [Embedded Image Not Available] Radiology data Recent Impressions: RADIOLOGY - XR CHEST 1 V 06/08 0635 Report Impression - Status: SIGNED Entered: 06/08/2023 0732 IMPRESSION: Minimal opacity at the left lung base with a eugene y small left pleural effusion. Impression By: Lars Reyes Free Text Obj Notes Free Text Obj Notes: General appearance: Elderly male in no acute dis tress, interactive and conversational HEENT: atraumatic, EOMI, normocephalic, moist mu cous membranes Neck: non-tender, good range of motion, no zaria s or swelling Cardiovascular: S1-S2 regular rate and rhythm, p aced Respiratory: aerating well, symmetric ex pansion, no acute respiratory distress Abdomen: soft, non-tender, no distention, no gua rding, no rebound Extremities: Pedal pulses present, no clubbing, no cyanosis, no edema Neuro/CERTIFIED NURSES AIDE: alert, oriented X 3, CNII-XII grossly intact, no motor deficits Skin: dry, clean and intact surgery dressing Diagnosis, Assessment Plan Free text A P: 83-year-old male with 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 Patient was found to have severe MR with paroxysmal atrial fibrillati on. He underwent mitral valve replacement with 29 Mitris along with isolation of left atrial appendage. Patient had prolapsed mitral valve along with my xomatous thickened anterior leaflet. He is status post mitral valve replacem ent. Patient was low on intravascular volume with a CVP measuring 6 to 7 cm. Received IV fluid bolus. Normal EF. At the end of the procedure there was no evidence of mitral regurgitation or paravalvular leak. Mohini ent received 450 mL of Cell Saver, 1 L of IV fluids, no autologous transfusion was given. Patient received 25% albumin 1 infusion. Had 3 and mL of EBL and 900 mL of ur ine output. Upon transfer to the CVICU patient is on norepinephrine at 2 mcg, epinephrine at 2 and vasopressin at 0.04 units. Patient is currently on assist-control at 20 tidal volume 500 PEEP of 5 and 50% FiO2. Latest blood gas shows a pH of 7.35, pCO2 of 38 mmHg, pO2 of 235 mmHg and bicarbonate of 21 m mol with base excess at -4.3. Latest blood glucose 165 mg/ dL, creatinine 0.72 mg/dL, hemoglobin 9.8 g/dL with hematocrit of 29%. Potassium is 3.6 and is being repleted with 20 mg of potassium chloride and ionized calcium is 1.15. Patient will receive 1 amp of sodium bicarbonate for mild metabolic acidosis. Vital signs are stable with a heart rate of 80 sinus rhyth m, blood pressure is 126/74 mmHg, PA pressures 37/22 mmHg and respiratory rate 24 with pulse ox of 10 0%. Odin Zeng is a 83-year-old gentleman with a [facility] medical history of atrial fibrillation, status post failed ablation in the past, on Eliquis therapy, diabetes, hypothyroid, who was found to have sig nificant mitral valve regurgitation with a flail mitral valve leaflet. He is followed by his custom grinder Dr. Zaidi. He denies any history of stroke, denies any history of chest pains. He is on Eliquis therapy for his at rial fibrillation. Patient admitted for mitral valve replacement for flail mitral valve leaflet. Patient underwent MVR on 06/03/2023. Surgery was uneventf ul. Patient is orally intubated and on mechanical ventilation. Patient is postop day 0 after mitral valve repla cement Was evaluated for severe mitral regurgitation fr om mitral valve prolapse Myxomatous degeneration of the anterior leaflet Low CVP to begin with Patient was volume responsive and was given uzair talloids boluses Normal EF Mildly elevated PA pressures in the 40s Current PA pressure is 37/22 mmHg Vital signs are stable with a heart rate of 80 in sinus rhythm, blood pressure is 126/74 mmHg At the end of surgery no mitral regurgitation or paravalvular leak Patient is on vasopressor [place] pport with Epinephrine and Nor-epinephrine at 2 mics and vasopressin at 0.04 units Mild metabolic acidosis with a pH of 7.35, pCO2 of 38 mmHg, pO2 of 235 mmHg and bicarbonate of 21 mmol with base excess at -4.3 Give 1 amp of sodium bicarbonate INS calcium is 1.15 while the potassium is 3.6 m mol Give 20 mg of potassium chloride Glycemic control adequate at 165 mg/dL Creatinine is normal at 0.72 mg/dL Patient has acute blood loss anemia with a hemoglobin of 9.8 g/dL and hematocrit of 29% Does not meet transfusion threshold at this time Currently on assist-control at 20 tidal volume 5 00 PEEP of 5 and 50% FiO2 Patient is unresponsive at this time Should be fast-track extubation SCDs for DVT prophylaxis Yosi Gomez MD [facility] 06/03/2023 5.23 PM 06/04/2023 Patient seen and examined in CVICU room #2202 this morning and discussed during MDR as well as CT surgery rounds. Patient is pos top day 1 after mitral valve replacement. Major issues are hemoglobin of 7.7 g/dL this morning along with hypotension. Patient is being supported with nor epinephrine at 2 mcg. PA pressure 38/23 mmHg and oxygen saturation is 95% on room air. Patient will be transfused 1 unit of packed red cell. Urine outp ut is 30 mm/h. Cardiac index is 2.4. Patient is 100% paced at 79 bpm. Underly ing rhythm is junctional at 50. He is awake alert x4. Chest tube output 195 and 120 mL respectively and both chest tubes are going to be retaine d today. He is on insulin at 2 units/h and glucose range is 120 - 150 mg/dL. Patient wi ll be started on insulin sliding scale low intensity coverage before meal s and at bedtime and insulin drip will be discontinued. Patient is ambulating with physical therapy, tolerating oral diet, did not have bowel movemen t yet. Hilario catheter is retained. Patient was received in CVICU room #2202 on 06/03. He underwent mitral valve replacement. Patient was found to have sev ere MR with paroxysmal atrial fibrillation. He underwent mitral valve replacem ent with 29 Mitris along with isolation of left atrial appendage. Patient had prolapsed mitral valve along with myxomatous thickened anterior leaflet. He i s status post mitral valve replacement. Patient was low on intravas cular volume with a CVP measuring 6 to 7 cm. Received IV fluid bolus. Normal EF. At the end of the procedure there was no evidence of mitral regurgitation or paravalvular leak. Patient received 450 mL of Cell Saver, 1 L of IV fluids, no autol ogous transfusion was given. Patient received 25% albumin 1 infusion. Had 3 a nd mL of EBL and 900 mL of urine output. Upon transfer to the CVICU patient is on norepinephrine at 2 mcg, epinephrine at 2 and vasopre ssin at 0.04 units. Patient is currently on assist- control at 20 tidal volume 5 00 PEEP of 5 and 50% FiO2. Latest blood gas shows a pH of 7.35, pCO2 of 38 mmHg, pO2 of 235 mmHg and bicarbonate of 21 mmol with base excess at -4.3. Latest blood glucose 165 mg /dL, creatinine 0.72 mg/dL, hemoglobin 9.8 g/dL with hematocrit of 29%. Pota ssium is 3.6 and is being repleted with 20 mg of potassium chlorid e and ionized calcium is 1.15. Patient will receive 1 amp of sodium bicarbonate for mil d metabolic acidosis. Vital signs are stable with a hear t rate of 80 sinus rhythm, blood pressure is 126/74 mmHg, PA pressures 37/22 mmHg and respiratory ra te 24 with pulse ox of 100%. Odin Zeng is a 83-year-old gentleman with a [facility] medical history of atrial fibrillation, status post failed ablation in the past, on Eliquis therapy, diabetes, hypothyroid, who was found to have sig nificant mitral valve regurgitation with a flail mitral valve leaflet. He is followed by his custom grinder Dr. Zaidi. He denies any history of stroke, denies any history of chest pains. He is on Eliquis therapy for his at rial fibrillation. Patient admitted for mitral valve replacement for flail mitral valve leaflet. Patient underwent MVR on 06/03/2023. Surgery was uneventf ul. Patient is orally intubated and on mechanical ventilation. Patient was extubated in a timely fashion. Patient is postop day 1 after MVR (mitral valve replacement) No acute events reported overnight Patient does have soft blood pressure and hemogl obin of 7.7 g/dL He will be transfused 1 unit of packed red cell Urine output is 30 mL/h Monitor urine output and BMP Creatinine is 1.0 mg/dL Patient is 100% paced at 80 bpm Underlying rhythm is junctional at 50 bpm Cardiac index is 2.4 Patient is on room air at 95% PA pressures 38/23 mmHg Glycemic control with insulin drip at 2 units/h Latest blood glucose 162 mg/dL Blood pressure is soft and is being supported wi th norepinephrine at 2 mcg Expect to improve blood pressure with vo lume pentecostal with 1 unit of packed red cell transfusion Chest tube output is 195 mL and 120 mL respectiv jaren and both chest tubes are going to be retained for another 24 hours Hilario catheter is going to be retained Patient is ambulating with physical therapy and tolerating oral diet No bowel movement yet Patient is on bowel regimen SCDs for DVT prophylaxis Yosi Gomez MD [facility] 06/04/2023 11.28 AM 06/05/2023 Patient seen and examined in CVICU room #2202 this morning and discussed during MDR as well as CT surgery rounds. Patient is pos top day 2 after mitral valve replacement. Patient was 100% pacer depe ndent postoperatively. This morning he has been taken off of the pa cer and has intrinsic rhythm at 80. Blood pressures improved at 121/58 mmHg and patient is off of no repinephrine drip. Chest tube output was minimal at 10 mL and 40 mL re spectively overnight. Both chest tubes will be removed today. Patient will have central venous catheter removed as well. Beta-raul is on hold. Patient will cont inue on amiodarone. Hemoglobin is 8.9 g/dL this morning with a isabell l creatinine at 0.8 mg/dL. Urine output was 625 mL overnight. Patient has m ildly elevated blood glucose level and will be on sliding scale coverage moderate intensity before meals and at bedtime. Admission weight was 77 kg patient w eighs 82 kg today. He has not been diuresed yet. Blood gas this kitnin g shows a pH of 7.46, PCO2 of 33 mmHg, PO2 of 61 mmHg and bicarbonate of 23 mmol with b ase excess 8.4. Oxygen saturations being monitored closely and stands at 98% now on room air. Patient had acute blood loss anemia and received packed red cell transfusion as of 2022. Patient is ambulating with physical therapy, tolerating oral diet, did not have bowel movement yet. Hilario catheter is retai dar. Patient was received in CVICU room #2202 on 06/03. He underwent mitral valve replacement. Patient was found to have sev ere MR with paroxysmal atrial fibrillation. He underwent mitral valve replacem ent with 29 Mitris along with isolation of left atrial appendage. Patient had prolapsed mitral valve along with myxomatous thickened anterior leaflet. He i s status post mitral valve replacement. Patient was low on intravas cular volume with a CVP measuring 6 to 7 cm. Received IV fluid bolus. Normal EF. At the end of the procedure there was no evidence of mitral regurgitation or paravalvular leak. Patient received 450 mL of Cell Saver, 1 L of IV fluids, no autol ogous transfusion was given. Patient received 25% albumin 1 infusion. Had 3 a nd mL of EBL and 900 mL of urine output. Upon transfer to the CVICU patient is on norepinephrine at 2 mcg, epinephrine at 2 and vasopre ssin at 0.04 units. Patient is currently on assist- control at 20 tidal volume 5 00 PEEP of 5 and 50% FiO2. Latest blood gas shows a pH of 7.35, pCO2 of 38 mmHg, pO2 of 235 mmHg and bicarbonate of 21 mmol with base excess at -4.3. Latest blood glucose 165 mg /dL, creatinine 0.72 mg/dL, hemoglobin 9.8 g/dL with hematocrit of 29%. Pota ssium is 3.6 and is being repleted with 20 mg of potassium chlorid e and ionized calcium is 1.15. Patient will receive 1 amp of sodium bicarbonate for mil d metabolic acidosis. Vital signs are stable with a hear t rate of 80 sinus rhythm, blood pressure is 126/74 mmHg, PA pressures 37/22 mmHg and respiratory ra te 24 with pulse ox of 100%. Odin Zeng is a 83-year-old gentleman with a [facility] medical history of atrial fibrillation, status post failed ablation in the past, on Eliquis therapy, diabetes, hypothyroid, who was found to have sig nificant mitral valve regurgitation with a flail mitral valve leaflet. He is followed by his custom grinder Dr. Zaidi. He denies any history of stroke, denies any history of chest pains. He is on Eliquis therapy for his at rial fibrillation. Patient admitted for mitral valve replacement for flail mitral valve leaflet. Patient underwent MVR on 06/03/2023. Surgery was uneventf ul. Patient is orally intubated and on mechanical ventilation. Patient was extubated in a timely fashion. Patient is postop day 2 after MVR (mitral valve replacement) No acute events reported overnight Patient was 100% pacer dependent postoperatively Has intrinsic rhythm in the 80s now Blood pressure is stable at 121/58 mm Hg Oxygen has been weaned and discontinued Patient was hypotensive and had acute blood loss anemia Required 1 unit of packed red cell transfusion o n 06/04/2023 Posttransfusion hemoglobin is 8.9 g/dL Kidney function is normal with a creatinine of 0 .8 mg/dL Urine output adequate at 625 mL overnight Patient is diuresing spontaneously Admission weight was 77 kg and patient weighs 82 kg today Hold beta-raul for now Patient will be on amiodarone oral DC central venous catheter DC chest tube Glycemic control with insuli n sliding scale coverage before meals and at bedtime Hilario catheter to be retained Follow oxygen saturation as patient has marginal PaO2 on the arterial blood gas ABG this morning showed a pH of 7.46, PCO2 of 33 mmHg, PO2 of 61 mmHg and bicarbonate of 23 mmol with base excess at 0.4 Chest tube output was 10 mL and 40 mL respective ly Both chest tubes to be removed today SCDs for DVT prophylaxis 06/06 Appears neuro intact, multimodal pain control, a void sedatives and narcotics Sats well on NC, wean O2, encourage I-S, CXR rev iewed HD stable, remains in junctional rhythm with lux kup pacing, holding beta- blockers, EP consult Cr stable, voiding but urine retention, Hilario, Flomax, lactic acidosis cleared s /p resuscitation Oral diet as tolerated, bowel regimen, m ild transaminitis, trend LFTs, replete hypokalemia Low-grade temp with leukocytosis, WBC downtrendi ng, no ID issues at this time Hgb appears stable, no evidence of active bleedi ng, CTs removed Blood glucose uncontrolled with sliding scale in sulin, start low-dose Lantus Tolerating PT/OT and out of bed, DVT prophylaxis with SCDs 06/07 Appears neuro intact, multimodal pain control, a void sedatives and narcotics Sats well on room air encourage I-S, CXR reviewe d HD stable, remains in junctional rhythm with lux kup pacing, holding beta- blockers, EP consult Cr stable, voiding but urine retention, Hilario, Flomax, lactic acidosis cleared s /p resuscitation Oral diet as tolerated, bowel regimen, m ild transaminitis, replete hypokalemia WBC downtrending, no ID issues at this time Hgb appears stable, no evidence of active bleedi ng, CTs removed yesterday Blood glucose controlled with sliding scale insu arthur, on low-dose Lantus Tolerating PT/OT and out of bed, DVT prophylaxis with SCDs Discussed with CV surgery and ICU team Critical care time 33 minutes 06/08 Appears neuro intact, multimodal pain control, a void sedatives and narcotics Sats well on room air encourage I-S, CXR reviewe d HD stable, remains in junctional rhythm with lux kup pacing, holding beta- blockers, EP consult Cr stable, voiding but urine retention, Hialrio, F les Oral diet as tolerated, bowel regimen, replete e lectrolytes WBC downtrending, no ID issues at this time Hgb appears stable, no evidence of active bleedi ng Blood glucose controlled with sliding scale insu arthur, on low-dose Lantus Tolerating PT/OT and out of bed, DVT prophylaxis with SCDs Discussed with CV surgery and ICU team Critical care time 31 minutes Consultants: anesthesiology, cardiology, cardiov ascular surgery, critical/ paper testing supervisor, hospitalist at 2031 RPT #:[id number] END OF REPORT 2023-06-08 12:15:00-00:00 [facility] ([facility]) Cardiology Progress Note REPORT#:[id number] REPORT STATUS: Signed DATE:06/08/23 TIME: 1215 PATIENT: ODIN ZENG UNIT #: [id number] ROOM/BED: [place] [address] : 40 AGE: 83 SEX: M ATTEND: Ramo Sanchez MD ADM AUTHOR: Toña Bertrand MD * ALL edits or amendments must be made on the [employer] document * Subjective Chief complaint: none Objective General VS/I O: 24 hour I O ending at 0700: 06/08 0700 06/07 1900 Intake Total 340.00 240 Output Total 925 500 Balance -585.00 -260 Intake, IV 100.00 Intake, Oral 240 240 Number 1 Bowel Movements Output, Urine 925 500 Patient 83.3 kg Weight Weight Standing scale Measurement Method Vital Signs: Date Time Temp Pulse Resp B/P B/P Pulse O2 O2 F low FiO2 Mean Ox Delivery Rate 06/08 1152 62 33 98 06/08 1150 97.3 06/08 1100 64 32 106/58 76 96 06/08 1041 63 25 121/57 82 98 06/08 1001 70 15 136/63 91 97 06/08 0930 70 34 113/65 85 95 06/08 0900 62 36 129/63 90 93 06/08 0835 100 Room air 06/08 0831 59 25 126/61 88 98 06/08 0801 62 35 171/74 106 98 06/08 0800 97.3 62 35 126/61 95 Room air 06/08 0730 60 20 138/65 94 95 06/08 0700 59 12 130/61 88 97 06/08 0630 59 13 128/61 88 95 06/08 0603 62 20 132/64 92 99 06/08 0526 73 25 141/65 94 97 06/08 0500 60 36 06/08 0422 93 Room air 0 21 06/08 0400 58 14 115/55 79 96 06/08 0300 58 25 113/59 79 96 06/08 0200 59 25 114/58 81 97 06/08 0100 58 23 109/59 80 95 07/ 0000 59 16 113/56 80 93 06/07 2300 60 14 113/59 79 95 07/21 2200 63 15 126/57 82 94 06/07 2100 71 26 138/66 95 100 06/07 2057 95 Room air 0 06/07 2000 97.6 06/07 2000 68 20 126/59 85 96 06/07 1900 67 26 129/60 86 96 06/07 1825 67 30 94 06/07 1800 66 32 133/61 88 92 / 1731 71 30 134/62 89 90 / 1700 66 21 138/63 90 99 06/07 1650 71 26 99 06/07 1631 70 27 154/88 111 97 06/07 1600 70 22 130/62 89 96 06/07 1557 69 21 124/58 83 97 06/07 1500 72 28 97 06/07 1330 71 22 126/58 84 100 06/07 1300 72 30 125/58 84 100 06/07 1230 67 22 124/59 85 100 PATIENT WEIGHT: Weight (lb): 183 Weight (oz): 10.32 Weight (kg): 83.300 Medications: Active Meds + DC'd Last 24 Hrs Tamsulosin HCl (Flomax 0.4 mg) 0.4 MG DAILY 1700 PO Potassium Chloride (POTASSIUM CHLORIDE 20MEQ TAB .ER) 20 MEQ ONCE ONE PO (DC) Amiodarone HCl (CORDARONE) 200 MG BID PO Insulin Glargine (Semglee) 10 UNIT BID SUBQ Ipratropium [place] (ATROVENT) 500 MCG RTQ2H PRN PRN INH Cyanocobalamin (Vitamin B-12 500 mcg tab) 500 MC G DAILY PO Ferrous Sulfate (FERROUS SULFATE) 325 MG DAILY P O Bisacodyl (DULCOLAX) 10 MG ONCE PRN RECTAL Magnesium Hydroxide (MILK OF MAGNESIA) 30 ML ONC E PRN PO Atorvastatin Calcium (LIPITOR) 40 MG 2100 PO Insulin Human Lispro (HUMALOG) 0 AC HS SUBQ Polyethylene Glycol (MIRALAX) 17 GM DAILY PO Tamsulosin HCl (Flomax 0.4 mg) 0.4 MG PC BK PO Levothyroxine Sodium (Synthroid) 75 MCG DAILY 06 00 PO Aspirin (ASPIRIN) 81 MG DAILY PO Docusate Sodium (COLACE) 100 MG BID PO Gabapentin (NEURONTIN) 200 MG BID PO (DC) Mupirocin (BACTROBAN 2% 22 GM OINTMENT) 1 APPLIC BID NASAL (DC) Sennosides (Senna Lax 8.6 MG TABLET) 17.2 MG BED TIME PO Acetaminophen (TYLENOL) 650 MG Q4H PRN PRN PO Acetaminophen (TYLENOL) 650 MG Q4H PRN PRN RECTA L Calcium Chloride (CALCIUM CHLORIDE) 1 GM ASDIR P RN IV Dextrose/Water (DEXTROSE 10% IN WATER) 125 ML DIR PRN IV (CKD) Dextrose/Water (DEXTROSE 10% IN WATER) 250 ML DIR PRN IV (CKD) Epinephrine (ADRENALIN CHLORIDE) 4 MG ASDIR IV Dextrose/Water (DEXTROSE 5% WATER) 246 ML Glucagon (GLUCAGON) 1 MG ASDIR PRN IM Insulin Human Regular (HumuLIN R) 100 UNIT ASDIR IV (CKD) Sodium Chloride (SODIUM CHLORIDE 0.9%) 99 ML Magnesium Sulfate (MAGNESIUM SULFATE 4GM/SWFI 10 0ML) 100 ML ASDIR PRN IV Magnesium Sulfate (MAGNESIUM SULFATE 2GM/SWFI 50 ML) 50 ML ASDIR PRN IV Magnesium Sulfate/Dextrose (MAGNESIUM SULFATE 1G M/D5W 100ML) 100 ML ASDIR PRN IV Nitroglycerin/Dextrose (NITROGLYCERIN 50,000MCG/ D5W 250ML) 250 ML ASDIR IV Norepinephrine Bitartrate (NOREPINEPHRINE 8 MG/N S 250 ML) 250 ML TITRATE IV Ondansetron HCl (ZOFRAN) 4 MG Q6H PRN PRN IV Oxycodone HCl (ROXICODONE) 5 MG Q4H PRN PRN PO Oxycodone HCl (ROXICODONE) 10 MG Q4H PRN PRN PO Potassium Chloride (KCL 20MEQ/SWFI 100ML) 100 M L ASDIR PRN IV Sodium Bicarbonate (SODIUM BICARBONATE) 50 MEQ A SDIR PRN IV Sodium Chloride (SODIUM CHLORIDE) 20 ML ASDIR IV Lactated Ringer's (LACTATED RINGERS) 1,000 ML SD EOP ONCALL IV Lidocaine HCl (LIDOCAINE HCL/PF) 2 ML PREOP ONCA LL LOCAL Lidocaine HCl (LIDOCAINE HCL/PF) 2 ML PREOP ONCA LL LOCAL Sodium Chloride (SODIUM CHLORIDE 0.9%) 500 ML SD EOP ONCALL IV Sodium Chloride (SODIUM CHLORIDE 0.9%) 500 ML SD EOP ONCALL IV Sodium Chloride (SODIUM CHLORIDE 0.9%) 1,000 ML PREOP ONCALL IV Sodium Chloride (SODIUM CHLORIDE) 5 ML ASDIR PRN IV Sodium Chloride (SODIUM CHLORIDE) 10 ML ASDIR SD N IV Sodium Chloride (SODIUM CHLORIDE 0.9%) 250 ML DIR PRN IV Physical Exam General appearance: awake Neck: no JVD Cardiovascular: CV assessment: regular rate and rhythm, pedal p ulses present Respiratory: clear to auscultation, no distress Abdomen: soft, non-tender, normal bowel sounds, no distention Genitourinary: urinary catheter, urine Lower extremity: LE assessment: no calf tenderness, no edema Musculoskeletal: normal inspection Neuro/CERTIFIED NURSES AIDE: alert Skin: dry, intact Psychiatry: normal affect, normal mood Results Findings/Data: Laboratory Tests 06/08 06/08 06/08 06/07 06/07 1124 0733 222 2006 163 Chemistry Sodium (134 - 147 mEq/L) 137 Potassium (3.4 - 5.0 mEq/L) 3.6 Chloride (100 - 108 mEq/L) 104 Carbon Dioxide (21 - 33 mEq/l) 26 Anion Gap (0 - 20) 11 BUN (7 - 18 mg/dL) 12 Creatinine (0.6 - 1.3 mg/dL) 0.9 Glomerular Filtr Rate (70 - 80) 84.7 H Glucose (70 - 110 mg/dL) 170 H POC Glucose (70 - 110 MG/DL) 186 H 148 H 170 H 207 H Calcium (8.0 - 10.5 mg/dL) 7.8 L Magnesium (1.80 - 2.40 mg/dL) 2.04 Laboratory Tests 06/08 223 Hematology WBC (4.5 - 11.0 x10 3/uL) 10.2 RBC (4.00 - 5.60 x10 6/uL) 2.65 L Hgb (12.5 - 16.9 g/dL) 7.9 L Hct (37.5 - 50.7 %) 24.2 L MCV (81.0 - 99.0 fL) 91.3 MCH (27.0 - 33.0 pg) 29.8 MCHC (33.0 - 37.0 g/dL) 32.6 L RDW (11.5 - 14.5 %) 14.0 Plt Count (150 - 400 x10 3/uL) 107 L MPV (7.0 - 9.0 fL) 11.3 H Neut % (Auto) (56.0 - 77.0 %) 67.1 Lymph % (Auto) (14.0 - 32.0 %) 18.6 [place] % (Auto) (4.8 - 9.0 %) 9.8 H Eos % (Auto) (0.3 - 3.7 %) 2.5 Baso % (Auto) (0.0 - 2.0 %) 0.3 Neut # (Auto) (2.0 - 7.6 x10 3/uL) 6.83 Lymph # (Auto) (1.0 - 3.8 x10 3/uL) 1.89 [place] # (Auto) (0.1 - 0.8 x10 3/uL) 1.00 H Eos # (Auto) (0.0 - 0.2 x10 3/uL) 0.25 H Baso # (Auto) (0.0 - 0.2 x10 3/uL) 0.03 Abs Immat Gran (auto) (0.00 - 0.03 x10 3/uL) 0. 17 H Add Manual Diff NO Immature Gran % (0.0 - 2.0 %) 1.7 Nucleated RBC % (0 - 0 %) 0.8 H Nucleated RBCs # (Man) (0.0 - 0.1 x10 3/uL) 0.0 8 Laboratory Tests 06/08 0223 Chemistry Magnesium (1.80 - 2.40 mg/dL) 2.04 Radiology data: Recent Impressions: RADIOLOGY - XR CHEST 1 V 06/08 0635 Report Impression - Status: SIGNED Entered: 06/08/2023 0732 IMPRESSION: Minimal opacity at the left lung base with a eugene y small left pleural effusion. Impression By: Brent - Lars Rodriguez Results: labs reviewed, vital signs reviewed, vi mercedes signs stable Diagnosis, Assessment Plan Consultants: anesthesiology, cardiology, cardiov ascular surgery, critical/ paper testing supervisor, hospitalist Free Text DxA P Notes Free Text DxA P Notes: Cardiology consultation s/p mitral valve replace ment on this 83 YO gentleman with PMHx of paroxysmal atri al fibrillation, DM, hypothyrodism who was found to have severe mitral valve prolapse . 1. Severe mitral valve prolapse s/p Mitral Valve Replacement * doing well * post-op care per CTS * post-op bradycardia - EP consulted * pacer was temp paused - showed sinus rhythm 2. Atrial fibrillation s/p PVI and ALAA * amiodarone decreased * BB dc'd 3. Junctional Bradycardia * EP consult * underlying rhythm sinus rhythm when pacer was paused today MDM by Dr. Diggs. 06/08/23: - Severe mitral valve prolapse s/p Mitral Valve Replacement, 29 Mitris tissue valve, PVI, Isolation FLEX 06/03/2023 - Symptomatic bradycardia/sick sinus sydrome - EKG showed accelerated junctional rhythm rate 70 - BP stable/ECHO: P - mod, non obst CAD, [facility] 05-20-23 - Discontinue BB, decrease amiodarone - EKG today NSR with PACs rate 73 - Atrial fibrillation s/p PVI and ALAA Electronically Signed by Toña Bertrand MD on 0 06/09/23 at 1006 RPT #:[id number] END OF REPORT 2023-06-08 08:50:00-00:00 [facility] Hospitalist Progress Note REPORT#:[id number] REPORT STATUS: Signed DATE:06/08/23 TIME: 0850 PATIENT: ODIN ZENG UNIT #: [id number] ROOM/BED: [place] [address] : 40 AGE: 83 SEX: M ATTEND: Ramo Sanchez MD ADM AUTHOR: Shane Willoughby NP * ALL edits or amendments must be made on the [employer]/computer document * Subjective Chief complaint: He is c/o constipation. His breathing is stable. On RA. Using IS. No Cp, fever, chills. BP and HR stable. Review of Systems Constitutional: Reports: fatigue, generalized weakness. Allergy/Immun: Denies: anaphylaxis, hives, itching, rhinorrhea. ENT: Denies: ear ringing, nasal congestion, sinus pro blem, throat swelling, tongue pain. Respiratory: Denies: REYES (dyspnea on exertion), hemop tysis, pleurisy, pneumonia, productive cough (sputum). Cardiovascular: Denies: chest pain, edema, orthopnea, palpitatio ns. GI: Reports: constipation. Denies: anorexia, dysphag ia, hematochezia, melena, rectal pain. : Denies: flank pain, penile lesion. Heme: Denies: bleeding, bruising. Neuro: Denies: change in LOC, dizziness, gait problem, headache, numbness. Objective General VS/I O: Vital Signs: Date Time Temp Pulse Resp B/P B/P Pulse O2 O2 F low FiO2 Mean Ox Delivery Rate 06/08 0831 59 25 126/61 88 98 06/08 0801 62 35 171/74 106 98 06/08 0730 60 20 138/65 94 95 06/08 0700 59 12 130/61 88 97 06/08 0630 59 13 128/61 88 95 06/08 0603 62 20 132/64 92 99 06/08 0526 73 25 141/65 94 97 06/08 0500 60 36 06/08 0422 93 Room air 0 21 06/08 0400 58 14 115/55 79 96 06/08 0300 58 25 113/59 79 96 06/08 0200 59 25 114/58 81 97 06/08 0100 58 23 109/59 80 95 06/08 0000 59 16 113/56 80 93 / 2300 60 14 113/59 79 95 / 2200 63 15 126/57 82 94 07/21 2100 71 26 138/66 95 100 / 2057 95 Room air 0 06/07 2000 36.4 06/07 2000 68 20 126/59 85 96 07/21 1900 67 26 129/60 86 96 / 1825 67 30 94 07/ 1800 66 32 133/61 88 92 / 1731 71 30 134/62 89 90 07/21 1700 66 21 138/63 90 99 07/21 1650 71 26 99 07/21 1631 70 27 154/88 111 97 07/21 1600 70 22 130/62 89 96 07/21 1557 69 21 124/58 83 97 07/21 1500 72 28 97 07/21 1330 71 22 126/58 84 100 07/21 1300 72 30 125/58 84 100 07/21 1230 67 22 124/59 85 100 07/21 1202 63 31 136/89 106 100 07/ 1131 114 37 158/67 97 99 07/21 1112 66 34 100 07/21 1100 66 29 106/57 78 100 07/21 1030 67 30 90/50 65 100 07/21 1000 68 34 108/54 76 100 06/07 0930 69 23 116/56 80 100 06/07 0901 73 29 129/58 84 100 06/07 0900 69 33 100 24 hour I O ending at 0700: 06/08 0700 06/07 1900 Intake Total 340.00 240 Output Total 925 500 Balance -585.00 -260 Intake, IV 100.00 Intake, Oral 240 240 Number 1 Bowel Movements Output, Urine 925 500 Patient 83.3 kg Weight Weight Standing scale Measurement Method PATIENT WEIGHT: Weight (lb): 183 Weight (oz): 10.32 Weight (kg): 83.300 Medications: Active Meds + DC'd Last 24 Hrs Tamsulosin HCl (Flomax 0.4 mg) 0.4 MG DAILY 1700 PO Potassium Chloride (POTASSIUM CHLORIDE 20MEQ TAB .ER) 20 MEQ ONCE ONE PO (DC) Amiodarone HCl (CORDARONE) 200 MG BID PO Insulin Glargine (Semglee) 10 UNIT BID SUBQ Ipratropium [place] (ATROVENT) 500 MCG RTQ2H PRN PRN INH Cyanocobalamin (Vitamin B-12 500 mcg tab) 500 MC G DAILY PO Ferrous Sulfate (FERROUS SULFATE) 325 MG DAILY P O Bisacodyl (DULCOLAX) 10 MG ONCE PRN RECTAL Magnesium Hydroxide (MILK OF MAGNESIA) 30 ML ONC E PRN PO Atorvastatin Calcium (LIPITOR) 40 MG 2100 PO Insulin Human Lispro (HUMALOG) 0 AC HS SUBQ Polyethylene Glycol (MIRALAX) 17 GM DAILY PO Tamsulosin HCl (Flomax 0.4 mg) 0.4 MG PC BK PO Levothyroxine Sodium (Synthroid) 75 MCG DAILY 06 00 PO Aspirin (ASPIRIN) 81 MG DAILY PO Docusate Sodium (COLACE) 100 MG BID PO Gabapentin (NEURONTIN) 200 MG BID PO Mupirocin (BACTROBAN 2% 22 GM OINTMENT) 1 APPLI C BID NASAL Sennosides (Senna Lax 8.6 MG TABLET) 17.2 MG BED TIME PO Acetaminophen (TYLENOL) 650 MG Q4H PRN PRN PO Acetaminophen (TYLENOL) 650 MG Q4H PRN PRN RECTA L Calcium Chloride (CALCIUM CHLORIDE) 1 GM ASDIR P RN IV Dextrose/Water (DEXTROSE 10% IN WATER) 125 ML DIR PRN IV (CKD) Dextrose/Water (DEXTROSE 10% IN WATER) 250 ML DIR PRN IV (CKD) Epinephrine (ADRENALIN CHLORIDE) 4 MG ASDIR IV Dextrose/Water (DEXTROSE 5% WATER) 246 ML Glucagon (GLUCAGON) 1 MG ASDIR PRN IM Insulin Human Regular (HumuLIN R) 100 UNIT ASDIR IV (CKD) Sodium Chloride (SODIUM CHLORIDE 0.9%) 99 ML Magnesium Sulfate (MAGNESIUM SULFATE 4GM/SWFI 10 0ML) 100 ML ASDIR PRN IV Magnesium Sulfate (MAGNESIUM SULFATE 2GM/SWFI 50 ML) 50 ML ASDIR PRN IV Magnesium Sulfate/Dextrose (MAGNESIUM SULFATE 1G M/D5W 100ML) 100 ML ASDIR PRN IV Nitroglycerin/Dextrose (NITROGLYCERIN 50,000MCG/ D5W 250ML) 250 ML ASDIR IV Norepinephrine Bitartrate (NOREPINEPHRINE 8 MG/N S 250 ML) 250 ML TITRATE IV Ondansetron HCl (ZOFRAN) 4 MG Q6H PRN PRN IV Oxycodone HCl (ROXICODONE) 5 MG Q4H PRN PRN PO Oxycodone HCl (ROXICODONE) 10 MG Q4H PRN PRN PO Potassium Chloride (KCL 20MEQ/SWFI 100ML) 100 ML ASDIR PRN IV Sodium Bicarbonate (SODIUM BICARBONATE) 50 MEQ A SDIR PRN IV Sodium Chloride (SODIUM CHLORIDE) 20 ML ASDIR IV Lactated Ringer's (LACTATED RINGERS) 1,000 ML SD EOP ONCALL IV Lidocaine HCl (LIDOCAINE HCL/PF) 2 ML PREOP ONCA LL LOCAL Lidocaine HCl (LIDOCAINE HCL/PF) 2 ML PREOP ONCA LL LOCAL Sodium Chloride (SODIUM CHLORIDE 0.9%) 500 ML SD EOP ONCALL IV Sodium Chloride (SODIUM CHLORIDE 0.9%) 500 ML SD EOP ONCALL IV Sodium Chloride (SODIUM CHLORIDE 0.9%) 1,000 ML PREOP ONCALL IV Sodium Chloride (SODIUM CHLORIDE) 5 ML ASDIR PRN IV Sodium Chloride (SODIUM CHLORIDE) 10 ML ASDIR SD N IV Sodium Chloride (SODIUM CHLORIDE 0.9%) 250 ML DIR PRN IV Dietitian nutrition assessment The data set between the solid lines has been im ported from the dietitian's assessment. BMI Calculated: 27.9 Nutrition related diagnosis: Nutrition diagnosis details: Nutrition problem: Increased nutrient needs Nutrition etiology: Acute illness Nutrition signs and symptoms: HEALING NEEDS S/P SURGERY Nutrition prescription: 1. RECOMMEND CONTINUE CA RDIAC DIET, ADD EASY TO CHEW FOODS. 2. PROVIDE GLUCERNA TID WITH MEALS. 3. MO NITOR PO, WT, LABS, BM. Dietitian name: Flores Velasco, DIET Assessment completed: 06/04/23 Physical Exam General appearance: alert, awake, oriented Head/Eyes: atraumatic, normocephalic, PERRLA Neck: full range of motion, non-tender, normal thyroid, supple/no meningismus, no bruit/NL carotids, no JVD Cardiovascular: normal capillary refill, normal heart sounds, regular rate rhythm Respiratory: aerating well, symmetric expansion, no distress Abdomen: non-tender, normal bowel sounds, soft Genitourinary: no bladder distention, no flank p ain, no urinary catheter Extremities: no calf tenderness, no clubbing, no cyanosis Musculoskeletal: no muscle spasm Neuro/CERTIFIED NURSES AIDE: alert, oriented X 3, CNII-XII intact Results Findings/Data: Laboratory Tests 06/08 06/08 06/07 06/07 0733 0223 2006 1632 Chemistry Sodium (134 - 147 mEq/L) 137 Potassium (3.4 - 5.0 mEq/L) 3.6 Chloride (100 - 108 mEq/L) 104 Carbon Dioxide (21 - 33 mEq/l) 26 Anion Gap (0 - 20) 11 BUN (7 - 18 mg/dL) 12 Creatinine (0.6 - 1.3 mg/dL) 0.9 Glomerular Filtr Rate (70 - 80) 84.7 H Glucose (70 - 110 mg/dL) 170 H POC Glucose (70 - 110 MG/DL) 148 H 170 H 207 H Calcium (8.0 - 10.5 mg/dL) 7.8 L Magnesium (1.80 - 2.40 mg/dL) 2.04 Laboratory Tests 06/08 0223 Hematology WBC (4.5 - 11.0 x10 3/uL) 10.2 RBC (4.00 - 5.60 x10 6/uL) 2.65 L Hgb (12.5 - 16.9 g/dL) 7.9 L Hct (37.5 - 50.7 %) 24.2 L MCV (81.0 - 99.0 fL) 91.3 MCH (27.0 - 33.0 pg) 29.8 MCHC (33.0 - 37.0 g/dL) 32.6 L RDW (11.5 - 14.5 %) 14.0 Plt Count (150 - 400 x10 3/uL) 107 L MPV (7.0 - 9.0 fL) 11.3 H Neut % (Auto) (56.0 - 77.0 %) 67.1 Lymph % (Auto) (14.0 - 32.0 %) 18.6 [place] % (Auto) (4.8 - 9.0 %) 9.8 H Eos % (Auto) (0.3 - 3.7 %) 2.5 Baso % (Auto) (0.0 - 2.0 %) 0.3 Neut # (Auto) (2.0 - 7.6 x10 3/uL) 6.83 Lymph # (Auto) (1.0 - 3.8 x10 3/uL) 1.89 [place] # (Auto) (0.1 - 0.8 x10 3/uL) 1.00 H Eos # (Auto) (0.0 - 0.2 x10 3/uL) 0.25 H Baso # (Auto) (0.0 - 0.2 x10 3/uL) 0.03 Abs Immat Gran (auto) (0.00 - 0.03 x10 3/uL) 0. 17 H Add Manual Diff NO Immature Gran % (0.0 - 2.0 %) 1.7 Nucleated RBC % (0 - 0 %) 0.8 H Nucleated RBCs # (Man) (0.0 - 0.1 x10 3/uL) 0.0 8 Radiology data: Recent Impressions: RADIOLOGY - XR CHEST 1 V 06/08 0635 Report Impression - Status: SIGNED Entered: 06/08/2023 0732 IMPRESSION: Minimal opacity at the left lung base with a eugene y small left pleural effusion. Impression By: Lars Reyes Results: labs reviewed, vital signs reviewed, vi mercedes signs stable, current med profile rev'd Treatment Prophylaxis Treatment Prophylaxis Oxygen: room air Diagnosis, Assessment Plan Hospital course to date: Assessment and Plan: - Mitral regurgitation/Paroxysmal atrial fibrill s/p Mitral valve replacement and Pulmonary vein isolation, Isolation of left atrial appendage. - CP and SOB due to MR. - HX of atrial fibrillation, status post failed ablation in the past, on Eliquis therapy, diabetes, hypothyroid. Plan: CVICU. Monitor Respiratory status, breathing tx, o2 sup port. Continue BB and Amiodarone, Lipitor. Pain meds. Antiemetics. Follow labs and replace as needed. SCDs for dVT ppx. Continue Monitor. Consultants: anesthesiology, cardiology, cardiov ascular surgery, critical/ paper testing supervisor, hospitalist Code status: full code Plan discussed with: patient, admitting physicia n, consultants, nurse Electronically Signed by Shane Willoughby BACK HOE OPERATOR on at 0852 RPT #:[id number] END OF REPORT 2023-06-08 08:20:00-00:00 [facility] Cardiothoracic Surgery Prog REPORT#:[id number] REPORT STATUS: Signed DATE:06/08/23 TIME: 08 PATIENT: ODIN ZENG UNIT #: [id number] ROOM/BED: 3341-1 : 40 AGE: 83 SEX: M ATTEND: Ramo Sanchez MD ADM AUTHOR: Abiodun Sanchez MD * ALL edits or amendments must be made on the [employer]/computer document * Subjective HPI: Doing well No new issues Objective Physical Exam Wound/incision: Location: Sternum clean and dry HEENT: mucosal membranes moist Neck: non-tender Cardiovascular: BP/pulses equal bilat. Respiratory: decreased breath sounds Abdomen: soft, non-tender Extremities: dry, moves all Musculoskeletal: full range of motion Neuro/CERTIFIED NURSES AIDE: alert, oriented X 3 Skin: dry Results Findings/Data: Laboratory Tests 06/08 1632 Chemistry Sodium (134 - 147 mEq/L) 137 Potassium (3.4 - 5.0 mEq/L) 3.6 Chloride (100 - 108 mEq/L) 104 Carbon Dioxide (21 - 33 mEq/l) 26 Anion Gap (0 - 20) 11 BUN (7 - 18 mg/dL) 12 Creatinine (0.6 - 1.3 mg/dL) 0.9 Glomerular Filtr Rate (70 - 80) 84.7 H Glucose (70 - 110 mg/dL) 170 H POC Glucose (70 - 110 MG/DL) 148 H 170 H 207 H Calcium (8.0 - 10.5 mg/dL) 7.8 L Magnesium (1.80 - 2.40 mg/dL) 2.04 Laboratory Tests 06/08 223 Hematology WBC (4.5 - 11.0 x10 3/uL) 10.2 RBC (4.00 - 5.60 x10 6/uL) 2.65 L Hgb (12.5 - 16.9 g/dL) 7.9 L Hct (37.5 - 50.7 %) 24.2 L MCV (81.0 - 99.0 fL) 91.3 MCH (27.0 - 33.0 pg) 29.8 MCHC (33.0 - 37.0 g/dL) 32.6 L RDW (11.5 - 14.5 %) 14.0 Plt Count (150 - 400 x10 3/uL) 107 L MPV (7.0 - 9.0 fL) 11.3 H Neut % (Auto) (56.0 - 77.0 %) 67.1 Lymph % (Auto) (14.0 - 32.0 %) 18.6 [place] % (Auto) (4.8 - 9.0 %) 9.8 H Eos % (Auto) (0.3 - 3.7 %) 2.5 Baso % (Auto) (0.0 - 2.0 %) 0.3 Neut # (Auto) (2.0 - 7.6 x10 3/uL) 6.83 Lymph # (Auto) (1.0 - 3.8 x10 3/uL) 1.89 [place] # (Auto) (0.1 - 0.8 x10 3/uL) 1.00 H Eos # (Auto) (0.0 - 0.2 x10 3/uL) 0.25 H Baso # (Auto) (0.0 - 0.2 x10 3/uL) 0.03 Abs Immat Gran (auto) (0.00 - 0.03 x10 3/uL) 0. 17 H Add Manual Diff NO Immature Gran % (0.0 - 2.0 %) 1.7 Nucleated RBC % (0 - 0 %) 0.8 H Nucleated RBCs # (Man) (0.0 - 0.1 x10 3/uL) 0.0 8 Diagnosis, Assessment Plan Free Text A P: Ambulate Encourage incentive spirometry Discharge planning at 1301 RPT #:[id number] END OF REPORT 2023-06-07 16:58:00-00:00 [facility]) Urology Consult Note REPORT#:[id number] REPORT STATUS: Signed DATE:06/07/23 TIME: 1657 PATIENT: ODIN ZENG UNIT #: [id number] ROOM/BED: [place] [address] : 40 AGE: 83 SEX: M ATTEND: Ramo Sanchez MD ADM AUTHOR: Leah Herrera MD * ALL edits or amendments must be made on the [employer]/computer document * History of Present Illness HPI Requesting clinician: Dr. Sanchez Reason for consult: Urinary retention Chief complaint: Mitral regurg/ paroxysmal afib HPI: Odin Zeng is a 83-year-old male with medical h istory of A-fib as well as mitral regurg, BPH managed w [facility] Flomax, history of left renal mass that has been evaluated by his urologist in [place]. Mohini ent is most recently status post mitral valve replacement, pulmonary vein is olation, and isolation of the left atrial appendage on 06/03/2023. He is curren tly in the CV ICU. He had a Hilario catheter in place that was removed over 24 hours ago however he failed voiding trial and was found to retain over 1 L w ith marked discomfort. Hilario catheter was replaced with a resultant urine out put. He is minimally ambulating. He is not constipated. Hx Obtained From Patient, Family History Additional medical history: 1. Atrial fibrillation on Eliquis 2. Hypothyroidism 3. Diabetes mellitus Additional surgical history: 1. afib ablation Additional family history: non contributory Alcohol use: Denies EtOH use Drug use: Denies recreational drugs Smoking status for patients 13 years old or olde r: Former Smoker Packs per day: 3 Years smoked: 18 Pack years: 54 Allergies: Coded Allergies: No Known Allergies (05/17/23) Ambulatory status: Independent Review of Systems ROS : Reports: testicular swelling , urinary retention. Denies: flank pain, frequency, penile discharge, penile lesion, urge incontinen ce, testicular pain. All systems rev neg: except as marked Objective VS/I O: Last Documented: Result Date Time Pulse Ox 99 06/07 1650 Pulse 71 06/07 1650 Resp 26 06/07 1650 B/P 154/88 06/07 1631 B/P Mean 111 06/07 1631 FiO2 21 06/07 0405 O2 Delivery Room air 06/07 0405 O2 Flow Rate 0 06/07 0405 Temp 98.2 06/06 2000 24 hour I O ending at 0700: 06/07 0700 06/06 1900 Intake Total Output Total 1650 Balance -1650 Output, Urine 1650 Patient 81.9 kg Weight Weight Standing scale Measurement Method PATIENT WEIGHT: Weight (lb): 180 Weight (oz): 8.94 Weight (kg): 81.900 Free text obj notes: Physical Examination: Constitutional: no acute distress Eyes: normal external eye, conjunctiva and scler a normal Ears, nose, mouth, throat: normocephalic, moist mucous membranes Respiratory: respirations unlabored on room air Gastrointestinal: soft, non-distended, non-tende r, Genitourinary: unormal phallus, bilateral descen ded testes with mild edema, Hilario catheter in place patent and draining cally r urine Musculoskeletal: no clubbing, cyanosis or edema Skin: no rashes Neurologic: no focal deficits Psychiatric: appropriate mood and affect Hematologic: no bruising Diagnosis, Assessment Plan Diagnosis, Assessment Plan Free Text A P: This is an 83-year-old male with past medical history of BPH managed with Flomax , left renal mass for which he follows with his urologist for, mitral regurgitation is paroxysmal A-fib who is status post mitral valve replacement pulmonary vein isolation and isolation of his le ft atrial appendage on 2022. Patient is for his voiding trial. He had u rinary retention with marked discomfort. Hilario was placed with greater than 1 L urine output. -Minimize narcotic -Continue Hilario catheter at this time -Bowel regimen -Start tamsulosin 0.4 mg nightly -Ambulate -Can consider voiding trial once patient is more ambulatory. Perform in early a.m. -If patient fails voiding trial again he can hav e a Hilario catheter placed and follow-up me or follow-up with his urologist in [place]. Change Electronically Signed by Leah Herrera MD on at 1706 RPT #:[id number] END OF REPORT 2023-06-07 15:14:00-00:00 [facility] Critical Care Progress Note REPORT#:[id number] REPORT STATUS: Signed DATE:06/07/23 TIME: 1514 PATIENT: ODIN ZENG UNIT #: [id number] ROOM/BED: [place] [address] : 40 AGE: 83 SEX: M ATTEND: Ab javid Sanchez MD ADM AUTHOR: Janet Canales MD * ALL edits or amendments must be made on the [employer]/computer document * Subjective Chief complaint: Severe mitral valve prolapse Myxomatous anterior leaflet Paroxysmal atrial fibrillation s/p failed ablat ion Acute blood loss anemia Elective ventilator dependence Acute pulmonary insufficiency following major c ardiothoracic surgery History of hypothyroidism HPI: 83-year-old gentleman with a past medical history of atrial fibrillation, status post failed ablation in the past, on Eliquis therapy, diabetes, hypothyroid, who was found to have significant mitral valve regur gitation with a flail mitral valve leaflet. He is followed by his cardiologis t Dr. Zaidi. He denies any history of stroke, denies any history of chest pains. He is on Eliquis therapy for his atrial fibrillation. Patient adm itted for mitral valve replacement for flail mitral valve leaflet. Patient underwent MV R on 06/03/2023. Surgery was uneventful. Patient is orally intubated and on mechanical ventilation. Patient was extubated in a timely fashion. Comments: The patient offers no new complaints No SOB On room air Afebrile Still with PACs and junctional rhythm Review of Systems Free Text ROS Notes Free Text ROS Notes: 12 point Review of Systems was performed to the extent possible including discussion with the nursing staff and review of vital signs and all data. All systems negative other than pertinent negative/p ositive findings mentioned in the interval history section. Objective General VS/I O Last Documented: Result Date Time Pulse Ox 96 06/08 1825 Pulse 62 06/08 1825 Resp 18 06/08 1825 B/P 140/67 06/08 1800 B/P Mean 96 06/08 1800 Temp 36.4 06/08 1600 O2 Delivery Room air 06/08 0835 FiO2 21 06/08 0422 O2 Flow Rate 0 06/08 0422 24 hour I O ending at 0700: 06/08 0700 06/07 1900 Intake Total 340.00 240 Output Total 925 500 Balance -585.00 -260 Intake, IV 100.00 Intake, Oral 240 240 Number 1 Bowel Movements Output, Urine 925 500 Patient 83.3 kg Weight Weight Standing scale Measurement Method PATIENT WEIGHT: Weight (lb): 183 Weight (oz): 10.32 Weight (kg): 83.300 Medications: Active Meds + DC'd Last 24 Hrs Amiodarone HCl (CORDARONE) 200 MG BID PO Insulin Glargine (Semglee) 10 UNIT BID SUBQ Ipratropium [place] (ATROVENT) 500 MCG RTQ2H PRN PRN INH Cyanocobalamin (Vitamin B-12 500 mcg tab) 500 MC G DAILY PO Ferrous Sulfate (FERROUS SULFATE) 325 MG DAILY P O Bisacodyl (DULCOLAX) 10 MG ONCE PRN RECTAL Magnesium Hydroxide (MILK OF MAGNESIA) 30 ML ONC E PRN PO Atorvastatin Calcium (LIPITOR) 40 MG 2100 PO Insulin Human Lispro (HUMALOG) 0 AC HS SUBQ Polyethylene Glycol (MIRALAX) 17 GM DAILY PO Tamsulosin HCl (Flomax 0.4 mg) 0.4 MG PC BK PO Levothyroxine Sodium (Synthroid) 75 MCG DAILY 06 00 PO Aspirin (ASPIRIN) 81 MG DAILY PO Docusate Sodium (COLACE) 100 MG BID PO Gabapentin (NEURONTIN) 200 MG BID PO Mupirocin (BACTROBAN 2% 22 GM OINTMENT) 1 APPLIC BID NASAL Sennosides (Senna Lax 8.6 MG TABLET) 17.2 MG BED TIME PO Ipratropium [place] (ATROVENT) 500 MCG RTQ4H INH (DC) Acetaminophen (TYLENOL) 650 MG Q4H PRN PRN PO Acetaminophen (TYLENOL) 650 MG Q4H PRN PRN RECTA L Calcium Chloride (CALCIUM CHLORIDE) 1 GM ASDIR P RN IV Dextrose/Water (DEXTROSE 10% IN WATER) 125 ML DIR PRN IV (CKD) Dextrose/Water (DEXTROSE 10% IN WATER) 250 ML DIR PRN IV (CKD) Epinephrine (ADRENALIN CHLORIDE) 4 MG ASDIR IV Dextrose/Water (DEXTROSE 5% WATER) 246 ML Glucagon (GLUCAGON) 1 MG ASDIR PRN IM Insulin Human Regular (HumuLIN R) 100 UNIT ASDIR IV (CKD) Sodium Chloride (SODIUM CHLORIDE 0.9%) 99 ML Magnesium Sulfate (MAGNESIUM SULFATE 4GM/SWFI 10 0ML) 100 ML ASDIR PRN IV Magnesium Sulfate (MAGNESIUM SULFATE 2GM/SWFI 50 ML) 50 ML ASDIR PRN IV Magnesium Sulfate/Dextrose (MAGNESIUM SULFATE 1G M/D5W 100ML) 100 ML ASDIR PRN IV Nitroglycerin/Dextrose (NITROGLYCERIN 50,000MCG/ D5W 250ML) 250 ML ASDIR IV Norepinephrine Bitartrate (NOREPINEPHRINE 8 MG/N S 250 ML) 250 ML TITRATE IV Ondansetron HCl (ZOFRAN) 4 MG Q6H PRN PRN IV Oxycodone HCl (ROXICODONE) 5 MG Q4H PRN PRN PO Oxycodone HCl (ROXICODONE) 10 MG Q4H PRN PRN PO Potassium Chloride (KCL 20MEQ/SWFI 100ML) 100 ML ASDIR PRN IV Sodium Bicarbonate (SODIUM BICARBONATE) 50 MEQ A SDIR PRN IV Sodium Chloride (SODIUM CHLORIDE) 20 ML ASDIR IV Lactated Ringer's (LACTATED RINGERS) 1,000 ML SD EOP ONCALL IV Lidocaine HCl (LIDOCAINE HCL/PF) 2 ML PREOP ONCA LL LOCAL Lidocaine HCl (LIDOCAINE HCL/PF) 2 ML PREOP ONCA LL LOCAL Sodium Chloride (SODIUM CHLORIDE 0.9%) 500 ML SD EOP ONCALL IV Sodium Chloride (SODIUM CHLORIDE 0.9%) 500 ML SD EOP ONCALL IV Sodium Chloride (SODIUM CHLORIDE 0.9%) 1,000 ML PREOP ONCALL IV Sodium Chloride (SODIUM CHLORIDE) 5 ML ASDIR PRN IV Sodium Chloride (SODIUM CHLORIDE) 10 ML ASDIR SD N IV Sodium Chloride (SODIUM CHLORIDE 0.9%) 250 ML DIR PRN IV Status post: MVR (mitral valve replacement) Physical Exam Head/eyes: atraumatic, EOMI, normocephalic, PERR L ENT: moist mucosal membranes, normal sinus Neck: non-tender, no JVD, no masses or swelling Cardiovascular: normal capillary refill, normal heart sounds, regular rate and rhythm Respiratory: aerating well, clear to auscultatio n, symmetric expansion, no distress Abdomen: soft, non-tender, no distention, no gua rding, no rebound Genitourinary: no flank pain Extremities: no clubbing, no cyanosis, no edema Neuro/CERTIFIED NURSES AIDE: alert, oriented X 3, CNII-XII intact, normal speech, reflexes equal bilat, no motor deficits, no sensory deficits Skin: dry, normal color, normal temperature, no rash Psychiatry: normal affect, n ormal judgment/insight, normal mood, not homicidal, not suicidal, no hallucinations Results Findings/data: Laboratory Tests 06/07 06/07 06/06 06/06 0748 0223 2007 1627 Chemistry Sodium (134 - 147 mEq/L) 140 Potassium (3.4 - 5.0 mEq/L) 4.1 Chloride (100 - 108 mEq/L) 106 Carbon Dioxide (21 - 33 mEq/l) 27 Anion Gap (0 - 20) 11 BUN (7 - 18 mg/dL) 11 Creatinine (0.6 - 1.3 mg/dL) 0.9 Glomerular Filtr Rate (70 - 80) 84.7 H Glucose (70 - 110 mg/dL) 186 H POC Glucose (70 - 110 MG/DL) 175 H 193 H 191 H Calcium (8.0 - 10.5 mg/dL) 7.5 L Magnesium (1.80 - 2.40 mg/dL) 2.00 Total Bilirubin (0.0 - 1.0 mg/dL) 0.50 Direct Bilirubin (0.0 - 0.30 MG/DL) 0.20 Indirect Bilirubin (MG/DL) 0.30 AST (15 - 37 IUnit/L) 44 H ALT (30 - 65 IUnit/L) 20 L Total Alk Phosphatase (20 - 125 IUnit/L) 42 Total Protein (6.4 - 8.2 g/dL) 5.4 L Albumin (3.4 - 5.0 g/dL) 2.90 L Laboratory Tests 06/07 0223 Hematology WBC (4.5 - 11.0 x10 3/uL) 11.0 RBC (4.00 - 5.60 x10 6/uL) 2.51 L Hgb (12.5 - 16.9 g/dL) 7.7 L Hct (37.5 - 50.7 %) 22.9 L MCV (81.0 - 99.0 fL) 91.2 MCH (27.0 - 33.0 pg) 30.7 MCHC (33.0 - 37.0 g/dL) 33.6 RDW (11.5 - 14.5 %) 13.9 Plt Count (150 - 400 x10 3/uL) 89 L MPV (7.0 - 9.0 fL) 12.0 H Neut % (Auto) (56.0 - 77.0 %) 75.3 Lymph % (Auto) (14.0 - 32.0 %) 14.2 [place] % (Auto) (4.8 - 9.0 %) 7.3 Eos % (Auto) (0.3 - 3.7 %) 1.8 Baso % (Auto) (0.0 - 2.0 %) 0.2 Neut # (Auto) (2.0 - 7.6 x10 3/uL) 8.30 H Lymph # (Auto) (1.0 - 3.8 x10 3/uL) 1.57 [place] # (Auto) (0.1 - 0.8 x10 3/uL) 0.81 H Eos # (Auto) (0.0 - 0.2 x10 3/uL) 0.20 Baso # (Auto) (0.0 - 0.2 x10 3/uL) 0.02 Abs Immat Gran (auto) (0.00 - 0.03 x10 3/uL) 0. 13 H Add Manual Diff NO Immature Gran % (0.0 - 2.0 %) 1.2 Nucleated RBC % (0 - 0 %) 0.5 H Nucleated RBCs # (Man) (0.0 - 0.1 x10 3/uL) 0.0 5 Laboratory Tests 06/07/23 0223: [Embedded Image Not Available] Radiology data Recent Impressions: RADIOLOGY - XR CHEST 1 V 06/07 0656 Report Impression - Status: SIGNED Entered: 06/07/2023 0950 IMPRESSION: 1. Slight apparent improvement of bilateral infr ahilar/lower lobe opacities. However, interval differences may be secondary to differences in technique/positioning. 2. Suspected unchanged small left-sided pleural effusion. 3. Trace, suspected but unchanged pneumopericard ium. Impression By: [email or web address] - Trev Jane Free Text Obj Notes Free Text Obj Notes: General appearance: Elderly male in no acute dis tress, interactive and conversational HEENT: atraumatic, EOMI, normocephalic, moist mu cous membranes Neck: non-tender, good range of motion, no zaria s or swelling Cardiovascular: Changing between junctio nal rhythm and regular rate and rhythm Respiratory: aerating well, symmetric ex pansion, no acute respiratory distress Abdomen: soft, non-tender, no distention, no gua rding, no rebound Extremities: Pedal pulses present, no clubbing, no cyanosis, no edema Neuro/CERTIFIED NURSES AIDE: alert, oriented X 3, CNII-XII grossly intact, no motor deficits Skin: dry, clean and intact surgery dressing Diagnosis, Assessment Plan Free text A P: 83-year-old male with 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 Paroxysmal atrial fibrillation status post faile d ablation Acute blood loss anemia Elective ventilator dependence Acute pulmonary insufficiency following major ca rdiothoracic surgery History of hypothyroidism Assessment and Plan: Patient was received in CVICU room #2202 this af [facility]. Patient was found to have severe MR with paroxysmal atrial fibrillati on. He underwent mitral valve replacement with 29 Mitris along with isolation of left atrial appendage. Patient had prolapsed mitral valve along with my xomatous thickened anterior leaflet. He is status post mitral valve replacem ent. Patient was low on intravascular volume with a CVP measuring 6 to 7 cm. Received IV fluid bolus. Normal EF. At the end of the procedure there was no evidence of mitral regurgitation or paravalvular leak. Mohini ent received 450 mL of Cell Saver, 1 L of IV fluids, no autologous transfusion was given. Patient received 25% albumin 1 infusion. Had 3 and mL of EBL and 900 mL of ur ine output. Upon transfer to the CVICU patient is on norepinephrine at 2 mcg, epinephrine at 2 and vasopressin at 0.04 units. Patient is currently on assist-control at 20 tidal volume 500 PEEP of 5 and 50% FiO2. Latest blood gas shows a pH of 7.35, pCO2 of 38 mmHg, pO2 of 235 mmHg and bicarbonate of 21 m mol with base excess at -4.3. Latest blood glucose 165 mg/ dL, creatinine 0.72 mg/dL, hemoglobin 9.8 g/dL with hematocrit of 29%. Potassium is 3.6 and is being repleted with 20 mg of potassium chloride and ionized calcium is 1.15. Patient will receive 1 amp of sodium bicarbonate for mild metabolic acidosis. Vital signs are stable with a heart rate of 80 sinus rhyth m, blood pressure is 126/74 mmHg, PA pressures 37/22 mmHg and respiratory rate 24 with pulse ox of 10 0%. Odin Zeng is a 83-year-old gentleman with a [facility] medical history of atrial fibrillation, status post failed ablation in the past, on Eliquis therapy, diabetes, hypothyroid, who was found to have sig nificant mitral valve regurgitation with a flail mitral valve leaflet. He is followed by his custom grinder Dr. Zaidi. He denies any history of stroke, denies any history of chest pains. He is on Eliquis therapy for his at ria fibrillation. Patient admitted for mitral valve replacement for flail mitral valve leaflet. Patient underwent MVR on 06/03/2023. Surgery was uneventf ul. Patient is orally intubated and on mechanical ventilation. Patient is postop day 0 after mitral valve repla cement Was evaluated for severe mitral regurgitation fr om mitral valve prolapse Myxomatous degeneration of the anterior leaflet Low CVP to begin with Patient was volume responsive and was given uzair talloids boluses Normal EF Mildly elevated PA pressures in the 40s Current PA pressure is 37/22 mmHg Vital signs are stable with a heart rate of 80 in sinus rhythm, blood pressure is 126/74 mmHg At the end of surgery no mitral regurgitation or paravalvular leak Patient is on vasopressor [place] pport with Epinephrine and Nor-epinephrine at 2 mics and vasopressin at 0.04 units Mild metabolic acidosis with a pH of 7.35, pCO2 of 38 mmHg, pO2 of 235 mmHg and bicarbonate of 21 mmol with base excess at -4.3 Give 1 amp of sodium bicarbonate INS calcium is 1.15 while the potassium is 3.6 m mol Give 20 mg of potassium chloride Glycemic control adequate at 165 mg/dL Creatinine is normal at 0.72 mg/dL Patient has acute blood loss anemia with a hemoglobin of 9.8 g/dL and hematocrit of 29% Does not meet transfusion threshold at this time Currently on assist-control at 20 tidal volume 5 00 PEEP of 5 and 50% FiO2 Patient is unresponsive at this time Should be fast-track extubation SCDs for DVT prophylaxis Yosi Gomez MD [facility] 06/03/2023 5.23 PM 06/04/2023 Patient seen and examined in CVICU room #2202 this morning and discussed during MDR as well as CT surgery rounds. Patient is pos top day 1 after mitral valve replacement. Major issues are hemoglobin of 7.7 g/dL this morning along with hypotension. Patient is being supported with nor epinephrine at 2 mcg. PA pressure 38/23 mmHg and oxygen saturation is 95% on room air. Patient will be transfused 1 unit of packed red cell. Urine outp ut is 30 mm/h. Cardiac index is 2.4. Patient is 100% paced at 79 bpm. Underly ing rhythm is junctional at 50. He is awake alert x4. Chest tube output 195 and 120 mL respectively and both chest tubes are going to be retaine d today. He is on insulin at 2 units/h and glucose range is 120 - 150 mg/dL. Patient wi ll be started on insulin sliding scale low intensity coverage before meal s and at bedtime and insulin drip will be discontinued. Patient is ambulating with physical therapy, tolerating oral diet, did not have bowel movemen t yet. Hilario catheter is retained. Patient was received in CVICU room #2202 on 06/03. He underwent mitral valve replacement. Patient was found to have sev ere MR with paroxysmal atrial fibrillation. He underwent mitral valve replacem ent with 29 Mitris along with isolation of left atrial appendage. Patient had prolapsed mitral valve along with myxomatous thickened anterior leaflet. He i s status post mitral valve replacement. Patient was low on intravas cular volume with a CVP measuring 6 to 7 cm. Received IV fluid bolus. Normal EF. At the end of the procedure there was no evidence of mitral regurgitation or paravalvular leak. Patient received 450 mL of Cell Saver, 1 L of IV fluids, no autol ogous transfusion was given. Patient received 25% albumin 1 infusion. Had 3 a nd mL of EBL and 900 mL of urine output. Upon transfer to the CVICU patient is on norepinephrine at 2 mcg, epinephrine at 2 and vasopre ssin at 0.04 units. Patient is currently on assist- control at 20 tidal volume 5 00 PEEP of 5 and 50% FiO2. Latest blood gas shows a pH of 7.35, pCO2 of 38 mmHg, pO2 of 235 mmHg and bicarbonate of 21 mmol with base excess at -4.3. Latest blood glucose 165 mg /dL, creatinine 0.72 mg/dL, hemoglobin 9.8 g/dL with hematocrit of 29%. Pota ssium is 3.6 and is being repleted with 20 mg of potassium chlorid e and ionized calcium is 1.15. Patient will receive 1 amp of sodium bicarbonate for mil d metabolic acidosis. Vital signs are stable with a hear t rate of 80 sinus rhythm, blood pressure is 126/74 mmHg, PA pressures 37/22 mmHg and respiratory ra te 24 with pulse ox of 100%. Odin Zeng is a 83-year-old gentleman with a [facility] medical history of atrial fibrillation, status post failed ablation in the past, on Eliquis therapy, diabetes, hypothyroid, who was found to have sig nificant mitral valve regurgitation with a flail mitral valve leaflet. He is followed by his custom grinder Dr. Zaidi. He denies any history of stroke, denies any history of chest pains. He is on Eliquis therapy for his at rial fibrillation. Patient admitted for mitral valve replacement for flail mitral valve leaflet. Patient underwent MVR on 06/03/2023. Surgery was uneventf ul. Patient is orally intubated and on mechanical ventilation. Patient was extubated in a timely fashion. Patient is postop day 1 after MVR (mitral valve replacement) No acute events reported overnight Patient does have soft blood pressure and hemogl obin of 7.7 g/dL He will be transfused 1 unit of packed red cell Urine output is 30 mL/h Monitor urine output and BMP Creatinine is 1.0 mg/dL Patient is 100% paced at 80 bpm Underlying rhythm is junctional at 50 bpm Cardiac index is 2.4 Patient is on room air at 95% PA pressures 38/23 mmHg Glycemic control with insulin drip at 2 units/h Latest blood glucose 162 mg/dL Blood pressure is soft and is being supported wi th norepinephrine at 2 mcg Expect to improve blood pressure with vo lume pentecostal with 1 unit of packed red cell transfusion Chest tube output is 195 mL and 120 mL respectiv jaren and both chest tubes are going to be retained for another 24 hours Hilario catheter is going to be retained Patient is ambulating with physical therapy and tolerating oral diet No bowel movement yet Patient is on bowel regimen SCDs for DVT prophylaxis Yosi Gomez MD [facility] 06/04/2023 11.28 AM 06/05/2023 Patient seen and examined in CVICU room #2202 this morning and discussed during MDR as well as CT surgery rounds. Patient is pos top day 2 after mitral valve replacement. Patient was 100% pacer depe ndent postoperatively. This morning he has been taken off of the pa cer and has intrinsic rhythm at 80. Blood pressures improved at 121/58 mmHg and patient is off of no repinephrine drip. Chest tube output was minimal at 10 mL and 40 mL re spectively overnight. Both chest tubes will be removed today. Patient will have central venous catheter removed as well. Beta-raul is on hold. Patient will cont inue on amiodarone. Hemoglobin is 8.9 g/dL this morning with a isabell l creatinine at 0.8 mg/dL. Urine output was 625 mL overnight. Patient has m ildly elevated blood glucose level and will be on sliding scale coverage moderate intensity before meals and at bedtime. Admission weight was 77 kg patient w eighs 82 kg today. He has not been diuresed yet. Blood gas this kitnin g shows a pH of 7.46, PCO2 of 33 mmHg, PO2 of 61 mmHg and bicarbonate of 23 mmol with b ase excess 8.4. Oxygen saturations being monitored closely and stands at 98% now on room air. Patient had acute blood loss anemia and received packed red cell transfusion as of 2022. Patient is ambulating with physical therapy, tolerating oral diet, did not have bowel movement yet. Hilario catheter is retai dar. Patient was received in CVICU room #2202 on 06/03. He underwent mitral valve replacement. Patient was found to have sev ere MR with paroxysmal atrial fibrillation. He underwent mitral valve replacem [facility] with 29 Mitris along with isolation of left atrial appendage. Patient had prolapsed mitral valve along with myxomatous thickened anterior leaflet. He i s status post mitral valve replacement. Patient was low on intravas cular volume with a CVP measuring 6 to 7 cm. Received IV fluid bolus. Normal EF. At the end of the procedure there was no evidence of mitral regurgitation or paravalvular leak. Patient received 450 mL of Cell Saver, 1 L of IV fluids, no autol ogous transfusion was given. Patient received 25% albumin 1 infusion. Had 3 a nd mL of EBL and 900 mL of urine output. Upon transfer to the CVICU patient is on norepinephrine at 2 mcg, epinephrine at 2 and vasopre ssin at 0.04 units. Patient is currently on assist- control at 20 tidal volume 5 00 PEEP of 5 and 50% FiO2. Latest blood gas shows a pH of 7.35, pCO2 of 38 mmHg, pO2 of 235 mmHg and bicarbonate of 21 mmol with base excess at -4.3. Latest blood glucose 165 mg /dL, creatinine 0.72 mg/dL, hemoglobin 9.8 g/dL with hematocrit of 29%. Pota ssium is 3.6 and is being repleted with 20 mg of potassium chlorid e and ionized calcium is 1.15. Patient will receive 1 amp of sodium bicarbonate for mil d metabolic acidosis. Vital signs are stable with a hear t rate of 80 sinus rhythm, blood pressure is 126/74 mmHg, PA pressures 37/22 mmHg and respiratory ra te 24 with pulse ox of 100%. Odin Zeng is a 83-year-old gentleman with a [facility] medical history of atrial fibrillation, status post failed ablation in the past, on Eliquis therapy, diabetes, hypothyroid, who was found to have sig nificant mitral valve regurgitation with a flail mitral valve leaflet. He is followed by his custom grinder Dr. Zaidi. He denies any history of stroke, denies any history of chest pains. He is on Eliquis therapy for his at rial fibrillation. Patient admitted for mitral valve replacement for flail mitral valve leaflet. Patient underwent MVR on 06/03/2023. Surgery was uneventf ul. Patient is orally intubated and on mechanical ventilation. Patient was extubated in a timely fashion. Patient is postop day 2 after MVR (mitral valve replacement) No acute events reported overnight Patient was 100% pacer dependent postoperatively Has intrinsic rhythm in the 80s now Blood pressure is stable at 121/58 mm Hg Oxygen has been weaned and discontinued Patient was hypotensive and had acute blood loss anemia Required 1 unit of packed red cell transfusion o n 06/04/2023 Posttransfusion hemoglobin is 8.9 g/dL Kidney function is normal with a creatinine of 0 .8 mg/dL Urine output adequate at 625 mL overnight Patient is diuresing spontaneously Admission weight was 77 kg and patient weighs 82 kg today Hold beta-raul for now Patient will be on amiodarone oral DC central venous catheter DC chest tube Glycemic control with insuli n sliding scale coverage before meals and at bedtime Hilario catheter to be retained Follow oxygen saturation as patient has marginal PaO2 on the arterial blood gas ABG this morning showed a pH of 7.46, PCO2 of 33 mmHg, PO2 of 61 mmHg and bicarbonate of 23 mmol with base excess at 0.4 Chest tube output was 10 mL and 40 mL respective ly Both chest tubes to be removed today SCDs for DVT prophylaxis 06/06 Appears neuro intact, multimodal pain control, a void sedatives and narcotics Sats well on NC, wean O2, encourage I-S, CXR rev iewed HD stable, remains in junctional rhythm with lux kup pacing, holding beta- blockers, EP consult Cr stable, voiding but urine retention, Hilario, Flomax, lactic acidosis cleared s /p resuscitation Oral diet as tolerated, bowel regimen, m ild transaminitis, trend LFTs, replete hypokalemia Low-grade temp with leukocytosis, WBC downtrendi ng, no ID issues at this time Hgb appears stable, no evidence of active bleedi ng, CTs removed Blood glucose uncontrolled with sliding scale in sulin, start low-dose Lantus Tolerating PT/OT and out of bed, DVT prophylaxis with SCDs 06/07 Appears neuro intact, multimodal pain control, a void sedatives and narcotics Sats well on room air encourage I-S, CXR reviewe d HD stable, remains in junctional rhythm with lux kup pacing, holding beta- blockers, EP consult Cr stable, voiding but urine retention, Hilario, Flomax, lactic acidosis cleared s /p resuscitation Oral diet as tolerated, bowel regimen, m ild transaminitis, replete hypokalemia WBC downtrending, no ID issues at this time Hgb appears stable, no evidence of active bleedi ng, CTs removed yesterday Blood glucose controlled with sliding scale insu arthur, on low-dose Lantus Tolerating PT/OT and out of bed, DVT prophylaxis with SCDs Discussed with CV surgery and ICU team Critical care time 33 minutes Consultants: anesthesiology, cardiology, cardiov ascular surgery, critical/ paper testing supervisor, hospitalist at 2030 RPT #:[id number] END OF REPORT 2023-06-07 12:31:00-00:00 [facility] ([facility]) EP Progress Note REPORT#:[id number] REPORT STATUS: Signed DATE:06/07/23 TIME: 1231 PATIENT: ODIN ZENG UNIT #: [id number] ROOM/BED: [place] [address] : 40 AGE: 83 SEX: M ATTEND: Ramo Sanchez MD ADM AUTHOR: Suzie Cooper BACK HOE OPERATOR * ALL edits or amendments must be made on the [employer]/computer document * Marita Cooper 06/07/23 1231: Subjective Chief complaint: Patient states he is feeling better OOB in chair Denies CP, palpitations, SOB Patient reports: No: complaints. Nursing reports: No: complaints. Objective General VS/I O Laboratory Tests 06/07/23 0223: [Embedded Image Not Available] Current Medications Sig/Stephanie Start time Last Medication Dose Route Stop Time Status Admin Amiodarone HCl 200 MG BID 06/06 2100 AC 06/07 PO 07/06 2059 0751 Insulin Glargine 10 UNIT BID 06/06 2100 AC 05/19 1 SUBQ 07/06 2059 0750 Ipratropium [place] 500 MCG RTQ2H PRN PRN 06/06 1521 AC INH 07/06 1520 Cyanocobalamin 500 MCG DAILY 06/06 0900 AC 05/19 1 PO 07/06 0859 0751 Ferrous Sulfate 325 MG DAILY 06/06 0900 AC PO 07/06 0859 0750 Bisacodyl 10 MG ONCE PRN 06/05 1200 AC RECTAL 07/05 1159 Magnesium Hydroxide 30 ML ONCE PRN 06/05 1200 A C PO Atorvastatin Calcium 40 MG 2100 06/04 2100 AC 0 06/06 PO 07/04 Insulin Human Lispro 0 AC HS 06/04 1130 AC 05/19 1 SUBQ 07/04 1129 0749 Polyethylene Glycol 17 GM DAILY 06/04 09 AC 0 06/05 PO 07/04 0859 0949 Tamsulosin HCl 0.4 MG PC BK 06/04 09 AC 06/07 PO 07/04 0859 0751 Levothyroxine Sodium 75 MCG DAILY 0606/04 06 16 AC 06/07 PO 07/04 0615 0722 Aspirin 81 MG DAILY 06/03 2121 AC 06/07 PO 07/03 2120 0750 Docusate Sodium 100 MG BID 06/03 2100 AC 06/05 PO 07/03 Gabapentin 200 MG BID 06/03 2100 AC 06/07 PO 06/08 0901 0750 Mupirocin 1 APPLIC BID 06/03 2100 AC 06/07 NASAL 06/08 0901 0748 Sennosides 17.2 MG BEDTIME 06/03 2100 AC 06/04 PO 07/03 Ipratropium [place] 500 MCG RTQ4H 06/03 1600 D C 06/06 INH 06/06 1521 1041 Acetaminophen 650 MG Q4H PRN PRN 06/03 1530 AC 06/07 PO 07/03 1529 0751 Acetaminophen 650 MG Q4H PRN PRN 06/03 1530 AC RECTAL 07/03 1529 Calcium Chloride 1 GM ASDIR PRN 06/03 1530 AC IV 07/03 1529 Dextrose/Water 125 ML ASDIR PRN 06/03 1530 CKD IV 07/03 1529 Dextrose/Water 250 ML ASDIR PRN 06/03 1530 CKD IV 07/03 1529 Epinephrine 4 MG ASDIR 06/03 1530 AC Dextrose/Water 246 ML IV 07/03 1529 Glucagon 1 MG ASDIR PRN 06/03 1530 AC IM 07/03 1529 Insulin Human Regular 100 UNIT ASDIR 06/03 1530 CKD Sodium Chloride 99 ML IV 07/03 1529 Magnesium Sulfate 100 ML ASDIR PRN 06/03 1530 A C IV 07/03 1529 Magnesium Sulfate 50 ML ASDIR PRN 06/03 1530 AC IV 07/03 1529 Magnesium Sulfate/ 100 ML ASDIR PRN 06/03 1530 AC 06/07 Dextrose IV 07/03 1529 0522 Nitroglycerin/ 250 ML ASDIR 06/03 1530 AC Dextrose IV 07/03 1529 Norepinephrine 250 ML TITRATE 06/03 1530 AC Bitartrate IV 07/03 1529 Ondansetron HCl 4 MG Q6H PRN PRN 06/03 1530 AC IV 07/03 1529 Oxycodone HCl 5 MG Q4H PRN PRN 06/03 1530 AC PO 06/08 1529 1401 Oxycodone HCl 10 MG Q4H PRN PRN 06/03 1530 AC PO 06/08 1529 Potassium Chloride 100 ML ASDIR PRN 06/03 1530 AC 06/03 IV 07/03 1529 2258 Sodium Bicarbonate 50 MEQ ASDIR PRN 06/03 1530 AC 06/03 IV 07/03 1529 1731 Sodium Chloride 20 ML ASDIR 06/03 1145 AC IV 07/03 1144 Lactated Ringer's 1,000 ML PREOP ONCALL 05/31 1 615 AC IV 06/30 2359 Lidocaine HCl 2 ML PREOP ONCALL 05/31 1615 AC LOCAL 06/30 2359 Lidocaine HCl 2 ML PREOP ONCALL 05/31 1615 AC LOCAL 06/30 2359 Sodium Chloride 500 ML PREOP ONCALL 05/31 1615 AC IV 06/30 2359 Sodium Chloride 500 ML PREOP ONCALL / 1615 AC IV 06/30 2359 Sodium Chloride 1,000 ML PREOP ONCALL 05/31 161 5 AC IV 06/30 2359 Sodium Chloride 5 ML ASDIR PRN 05/31 1615 AC IV 06/30 1614 Sodium Chloride 10 ML ASDIR PRN 05/31 1615 AC IV 06/30 1614 Sodium Chloride 250 ML ASDIR PRN 05/31 1615 AC IV 06/30 1614 Last Documented: Result Date Time Pulse Ox 100 06/07 1112 Pulse 66 06/07 1112 Resp 34 06/07 1112 B/P 106/57 06/07 1100 B/P Mean 78 06/07 1100 FiO2 21 06/07 0405 O2 Delivery Room air 06/07 0405 O2 Flow Rate 0 06/07 0405 Temp 36.8 06/06 2000 24 hour I O ending at 0700: 06/07 0700 06/06 1900 Intake Total Output Total 1650 Balance -1650 Output, Urine 1650 Patient 81.9 kg Weight Weight Standing scale Measurement Method PATIENT WEIGHT: Weight (lb): 180 Weight (oz): 8.94 Weight (kg): 81.900 Physical Exam General appearance: alert, awake, oriented, no a cute distress, no respiratory distress HEENT: mucosal membranes moist Neck: full range of motion, non-tender Cardiovascular: CV assessment: regular rate and rhythm, pedal p ulses present Respiratory: decreased breath sounds, no distres s Abdomen: soft, normal bowel sounds Genitourinary: no flank pain Extremities: edema, dry, moves all Musculoskeletal: normal inspection Neuro/CERTIFIED NURSES AIDE: alert, oriented X 3, normal speech Skin: dry, intact Psychiatry: normal affect EKG Interpretation: normal sinus rhythm Treatment Prophylaxis Treatment Prophylaxis Oxygen: room air Diagnosis, Assessment Plan Free Text A P: Assessment: 1. Symptomatic bradycardia/sick sinus sydrome - EKG showed accelerated junctional rhythm rate 70 - BP stable - Discontinue BB, decrease amiodarone - EKG today NSR with PACs rate 73 - On tele, NSR - Patient awake, alert, OOB in chair - Denies CP, SOB, palpitations 2. Junctional rhythm 3. Severe mitral valve prola pse s/p Mitral Valve Replacement, PVI, Isolation FLEX 06/03/2023 4. Atrial fibrillation s/p PVI and ALAA 5. CAD, non-obstructive Plan/recommendations: - Continuous tele monitoring - AVOID AV rubi blocking agents - Decrease amiodarone dose - Post-op care per CVS team - If no improvement with heart rate/rhythm may n eed pacemaker - Back in NSR, conintue holding BBs - Will follow closely and monitor heart rate/rhy thm - Will follow and adjust therapies as clinical c ourse dictates Consultants: anesthesiology, cardiology, cardiov ascular surgery, critical/ paper testing supervisor, hospitalist Code status: full code Plan discussed with: patient Edvin Arnie andersen 06/12/23 0939: Attestations Attestation needed: supervising physician Physician Attestation Agree w/findings plan: Patient seen and examined on 06/07/2023. I agree with the findings and plan as documented by Suzie Cooper NP. at 1235 at 0940 RPT #:[id number] END OF REPORT 2023-06-07 09:34:00-00:00 [id number] [place] [address] PATIENT NAME: ODIN ZENG ADMIT DATE: 06/03/23 ACCOUNT NO: [id number] ROOM NO: [id number] AGE: 83 REPORT TYPE: eELECTROCARDIOGRAM REPORT SEX: M ADMITTING PHYSICIAN:Abiodun Sanchez MD ATTENDING PHYSICIAN:Abiodun Sanchez MD Order: [id number] Test Reason : EKG Test Date/Time Stamp: SatJun 07 2023 09:34:50 Blood Pressure : / mmHG Vent. Rate : 073 BPM Atrial Rate : 074 BPM P-R Int : 000 ms QRS Dur : 082 ms QT Int : 350 ms P-R-T Axes : 094 012 072 degree s QTc Int : 385 ms Sinus rhythm with premature atrial complexes Nonspecific T wave abnormality Abnormal ECG When compared with ECG of 06-JUN-2023 11:05, Significant changes have occurred Confirmed by TOÑA BERTRAND ([id number]) on 8:04:46 AM Referred By: Avila Sanchez Confirmed by:TOÑA BERTRAND at 0804 PATIENT NAME: ODIN ZENG 1 2023-06-07 09:28:00-00:00 [facility] ([facility]) Hospitalist Progress Note REPORT#:[id number] REPORT STATUS: Signed DATE:06/07/23 TIME: 927 PATIENT: ODNI ZENG UNIT #: [id number] ROOM/BED: [place] [address] : 40 AGE: 83 SEX: M ATTEND: Ramo Sanchez MD ADM AUTHOR: Shane Willoughby NP * ALL edits or amendments must be made on the [employer]/computer document * Subjective Chief complaint: He is stable and no new issue. His breathing is stable. On RA. Using IS. No Cp, fever, chills. BP and HR stable. Review of Systems Constitutional: Reports: fatigue, generalized weakness. Allergy/Immun: Denies: anaphylaxis, hives, rhinorrhea. Respiratory: Denies: REYES (dyspnea on exer tion), non productive cough, parox nocturnal dyspnea , pneumonia, productive cough (sputum), SOB. Cardiovascular: Denies: chest pain, REYES (dyspnea on exertion), e claudine, palpitations. GI: Denies: anorexia, dysphagia, GERD, hiatal hernia , rectal pain. : Denies: dysuria, frequency, penile discharge, te sticular swelling, urgency. Musculoskeletal: Denies: extremity pain, myalgias. Endocrine: Denies: heat intolerance, polyphagia, polyuria. Neuro: Denies: change in LOC, focal weakness, headache, seizure. Objective General VS/I O: Vital Signs: Date Time Temp Pulse Resp B/P B/P Pulse O2 O2 F low FiO2 Mean Ox Delivery Rate 06/07 0700 64 15 118/65 86 100 06/07 0630 80 22 132/66 92 100 06/07 0611 80 25 160/74 107 100 06/07 0500 80 15 120/59 85 98 06/07 0405 97 Room air 0 21 06/07 0400 80 15 110/58 79 97 06/07 0300 80 27 122/60 85 98 06/07 0200 80 23 114/56 80 97 06/07 0100 80 19 117/58 84 96 06/07 0000 80 12 115/59 80 98 06/06 2300 80 14 115/60 81 98 06/06 2200 80 25 114/57 80 97 / 2100 80 23 118/58 81 97 06/06 2000 36.8 071999 79 15 125/58 83 99 06/06 1936 99 Room air 0 21 07/20 1909 13 99 07/20 1900 68 22 110/55 78 100 07/20 1837 79 22 141/67 96 100 07/20 1800 79 23 115/55 79 100 07/20 1757 79 25 100 07/20 1730 78 16 122/60 83 99 07/20 1705 80 20 100 07/20 1700 80 16 130/87 101 100 07/20 1630 78 13 130/90 104 99 07/20 1600 80 22 122/61 85 99 07/20 1530 80 17 120/59 83 99 07/20 1501 100 Room air 21 07/20 1500 80 20 121/57 82 99 07/20 1430 80 30 98 07/20 1400 80 23 117/60 83 98 07/20 1330 80 23 115/56 80 98 07/20 1300 79 19 127/60 87 100 07/20 1230 80 14 116/56 80 99 07/20 1200 80 27 114/57 79 99 07/20 1130 67 27 107/58 77 99 07/20 1128 67 27 116/56 80 98 07/20 1100 66 27 111/55 76 100 07/20 1041 97 Room air 21 07/20 1000 66 26 132/57 91 100 07/20 0932 67 16 100 07/20 0929 83 24 122/71 92 100 24 hour I O ending at 0700: 06/07 0700 06/06 1900 Intake Total Output Total 1650 Balance -1650 Output, Urine 1650 Patient 81.9 kg Weight Weight Standing scale Measurement Method PATIENT WEIGHT: Weight (lb): 180 Weight (oz): 8.94 Weight (kg): 81.900 Medications: Active Meds + DC'd Last 24 Hrs Amiodarone HCl (CORDARONE) 200 MG BID PO Insulin Glargine (Semglee) 10 UNIT BID SUBQ Ipratropium [place] (ATROVENT) 500 MCG RTQ2H PRN PRN INH Cyanocobalamin (Vitamin B-12 500 mcg tab) 500 MC G DAILY PO Ferrous Sulfate (FERROUS SULFATE) 325 MG DAILY P O Bisacodyl (DULCOLAX) 10 MG ONCE PRN RECTAL Magnesium Hydroxide (MILK OF MAGNESIA) 30 ML ONC E PRN PO Atorvastatin Calcium (LIPITOR) 40 MG 2100 PO Insulin Human Lispro (HUMALOG) 0 AC HS SUBQ Polyethylene Glycol (MIRALAX) 17 GM DAILY PO Tamsulosin HCl (Flomax 0.4 mg) 0.4 MG PC BK PO Levothyroxine Sodium (Synthroid) 75 MCG DAILY 06 00 PO Aspirin (ASPIRIN) 81 MG DAILY PO Amiodarone HCl (CORDARONE) 200 MG TID PO (DC) Docusate Sodium (COLACE) 100 MG BID PO Gabapentin (NEURONTIN) 200 MG BID PO Metoprolol Tartrate (LOPRESSOR) 12.5 MG Q12HR PO (DC) Mupirocin (BACTROBAN 2% 22 GM OINTMENT) 1 APPLIC BID NASAL Sennosides (Senna Lax 8.6 MG TABLET) 17.2 MG BED TIME PO Ipratropium [place] (ATROVENT) 500 MCG RTQ4H INH (DC) Acetaminophen (TYLENOL) 650 MG Q4H PRN PRN PO Acetaminophen (TYLENOL) 650 MG Q4H PRN PRN RECTA L Calcium Chloride (CALCIUM CHLORIDE) 1 GM ASDIR P RN IV Dextrose/Water (DEXTROSE 10% IN WATER) 125 ML DIR PRN IV (CKD) Dextrose/Water (DEXTROSE 10% IN WATER) 250 ML DIR PRN IV (CKD) Epinephrine (ADRENALIN CHLORIDE) 4 MG ASDIR IV Dextrose/Water (DEXTROSE 5% WATER) 246 ML Glucagon (GLUCAGON) 1 MG ASDIR PRN IM Insulin Human Regular (HumuLIN R) 100 UNIT ASDIR IV (CKD) Sodium Chloride (SODIUM CHLORIDE 0.9%) 99 ML Magnesium Sulfate (MAGNESIUM SULFATE 4GM/SWFI 10 0ML) 100 ML ASDIR PRN IV Magnesium Sulfate (MAGNESIUM SULFATE 2GM/SWFI 50 ML) 50 ML ASDIR PRN IV Magnesium Sulfate/Dextrose (MAGNESIUM SULFATE 1G M/D5W 100ML) 100 ML ASDIR PRN IV Nitroglycerin/Dextrose (NITROGLYCERIN 50,000MCG/ D5W 250ML) 250 ML ASDIR IV Norepinephrine Bitartrate (NOREPINEPHRINE 8 MG/N S 250 ML) 250 ML TITRATE IV Ondansetron HCl (ZOFRAN) 4 MG Q6H PRN PRN IV Oxycodone HCl (ROXICODONE) 5 MG Q4H PRN PRN PO Oxycodone HCl (ROXICODONE) 10 MG Q4H PRN PRN PO Potassium Chloride (KCL 20MEQ/SWFI 100ML) 100 ML ASDIR PRN IV Sodium Bicarbonate (SODIUM BICARBONATE) 50 MEQ A SDIR PRN IV Sodium Chloride (SODIUM CHLORIDE) 20 ML ASDIR IV Lactated Ringer's (LACTATED RINGERS) 1,000 ML SD EOP ONCALL IV Lidocaine HCl (LIDOCAINE HCL/PF) 2 ML PREOP ONCA LL LOCAL Lidocaine HCl (LIDOCAINE HCL/PF) 2 ML PREOP ONC ALL LOCAL Sodium Chloride (SODIUM CHLORIDE 0.9%) 500 ML SD EOP ONCALL IV Sodium Chloride (SODIUM CHLORIDE 0.9%) 500 ML SD EOP ONCALL IV Sodium Chloride (SODIUM CHLORIDE 0.9%) 1,000 ML PREOP ONCALL IV Sodium Chloride (SODIUM CHLORIDE) 5 ML ASDIR PRN IV Sodium Chloride (SODIUM CHLORIDE) 10 ML ASDIR SD N IV Sodium Chloride (SODIUM CHLORIDE 0.9%) 250 ML DIR PRN IV Dietitian nutrition assessment The data set between the solid lines has been im ported from the dietitian's assessment. BMI Calculated: 27.5 Nutrition related diagnosis: Nutrition diagnosis details: Nutrition problem: Increased nutrient needs Nutrition etiology: Acute illness Nutrition signs and symptoms: HEALING NEEDS S/P SURGERY Nutrition prescription: 1. RECOMMEND CONTINUE CA RDIAC DIET, ADD EASY TO CHEW FOODS. 2. PROVIDE GLUCERNA TID WITH MEALS. 3. MO LISA PO, WT, LABS, BM. Dietitian name: Flores Velasco, DIET Assessment completed: 06/04/23 Physical Exam General appearance: alert, awake, oriented Head/Eyes: atraumatic, normocephalic, PERRLA Neck: full range of motion, non-tender, normal thyroid, supple/no meningismus, no bruit/NL carotids, no JVD Cardiovascular: normal capillary refill, normal heart sounds, regular rate rhythm Respiratory: aerating well, symmetric expansion, no distress Abdomen: non-tender, normal bowel sounds, soft Genitourinary: no bladder distention, no flank p ain, no urinary catheter Extremities: no calf tenderness, no clubbing, no cyanosis Musculoskeletal: no muscle spasm Neuro/CERTIFIED NURSES AIDE: alert, oriented X 3, CNII-XII intact Results Findings/Data: Laboratory Tests 06/0748 222 2007 162 1131 Chemistry Sodium (134 - 147 mEq/L) 140 Potassium (3.4 - 5.0 mEq/L) 4.1 Chloride (100 - 108 mEq/L) 106 Carbon Dioxide (21 - 33 mEq/l) 27 Anion Gap (0 - 20) 11 BUN (7 - 18 mg/dL) 11 Creatinine (0.6 - 1.3 mg/dL) 0.9 Glomerular Filtr Rate (70 - 80) 84.7 H Glucose (70 - 110 mg/dL) 186 H POC Glucose (70 - 110 MG/DL) 175 H 193 H 191 H 226 H Calcium (8.0 - 10.5 mg/dL) 7.5 L Magnesium (1.80 - 2.40 mg/dL) 2.00 Total Bilirubin (0.0 - 1.0 mg/dL) 0.50 Direct Bilirubin (0.0 - 0.30 MG/DL) 0.20 Indirect Bilirubin (MG/DL) 0.30 AST (15 - 37 IUnit/L) 44 H ALT (30 - 65 IUnit/L) 20 L Total Alk Phosphatase (20 - 125 IUnit/L) 42 Total Protein (6.4 - 8.2 g/dL) 5.4 L Albumin (3.4 - 5.0 g/dL) 2.90 L Laboratory Tests 06/07 223 Hematology WBC (4.5 - 11.0 x10 3/uL) 11.0 RBC (4.00 - 5.60 x10 6/uL) 2.51 L Hgb (12.5 - 16.9 g/dL) 7.7 L Hct (37.5 - 50.7 %) 22.9 L MCV (81.0 - 99.0 fL) 91.2 MCH (27.0 - 33.0 pg) 30.7 MCHC (33.0 - 37.0 g/dL) 33.6 RDW (11.5 - 14.5 %) 13.9 Plt Count (150 - 400 x10 3/uL) 89 L MPV (7.0 - 9.0 fL) 12.0 H Neut % (Auto) (56.0 - 77.0 %) 75.3 Lymph % (Auto) (14.0 - 32.0 %) 14.2 [place] % (Auto) (4.8 - 9.0 %) 7.3 Eos % (Auto) (0.3 - 3.7 %) 1.8 Baso % (Auto) (0.0 - 2.0 %) 0.2 Neut # (Auto) (2.0 - 7.6 x10 3/uL) 8.30 H Lymph # (Auto) (1.0 - 3.8 x10 3/uL) 1.57 [place] # (Auto) (0.1 - 0.8 x10 3/uL) 0.81 H Eos # (Auto) (0.0 - 0.2 x10 3/uL) 0.20 Baso # (Auto) (0.0 - 0.2 x10 3/uL) 0.02 Abs Immat Gran (auto) (0.00 - 0.03 x10 3/uL) 0. 13 H Add Manual Diff NO Immature Gran % (0.0 - 2.0 %) 1.2 Nucleated RBC % (0 - 0 %) 0.5 H Nucleated RBCs # (Man) (0.0 - 0.1 x10 3/uL) 0.0 5 Results: labs reviewed, vital signs reviewed, vi merecdes signs stable, current med profile rev'd Treatment Prophylaxis Treatment Prophylaxis Oxygen: room air Diagnosis, Assessment Plan Hospital course to date: Assessment and Plan: - Mitral regurgitation/Paroxysmal atrial fibrill s/p Mitral valve replacement and Pulmonary vein isolation, Isolation of left atrial appendage. - CP and SOB due to MR. - HX of atrial fibrillation, status post failed ablation in the past, on Eliquis therapy, diabetes, hypothyroid. Plan: CVICU. Monitor Respiratory status, breathing tx, o2 sup port. Continue BB and Amiodarone, Lipitor. Pain meds. Antiemetics. Follow labs and replace as needed. SCDs for dVT ppx. Continue Monitor. Consultants: anesthesiology, cardiology, cardiov ascular surgery, critical/ paper testing supervisor, hospitalist Code status: full code Plan discussed with: patient, admitting physicia n, consultants, nurse Electronically Signed by Shane Willoughby NP on at 0929 RPT #:[id number] END OF REPORT 2023-06-07 07:47:00-00:00 [facility] Cardiothoracic [facility]g REPORT#:[id number] REPORT STATUS: Signed DATE:06/07/23 TIME: 746 PATIENT: ODIN ZENG UNIT #: [id number] ROOM/BED: [place] [address] : 40 AGE: 83 SEX: M ATTEND: Ramo Sanchez MD ADM AUTHOR: Kerri Cassidy Physic * ALL edits or amendments must be made on the [employer]/computer document * General Post-op: day 4 Status post: 06/03/23 PROCEDURES: 1. Mitral valve replacement (29 Mitris valve). 2. Pulmonary vein isolation. 3. Isolation of left atrial appendage. Subjective Chief complaint: Resting comfortable. Denies compliants Review of Systems Constitutional: Denies: fatigue, fever. Skin: Denies: rash, swelling. Eyes: Denies: diplopia. ENT: Denies: hearing loss, mouth pain. Respiratory: Denies: REYES (dyspnea on exertion), SOB. Cardiovascular: Denies: chest pain, REYES (dyspnea on exertion). GI: Denies: constipation, diarrhea. Musculoskeletal: Denies: joint pain, joint swelling. Heme: Denies: bleeding, bruising. All systems rev neg: except as marked Objective General VS/I O Last Documented: Result Date Time Pulse Ox 100 06/07 0700 B/P 118/65 06/07 0700 B/P Mean 86 06/07 0700 Pulse 64 06/07 0700 Resp 15 06/07 0700 FiO2 21 06/07 0405 O2 Delivery Room air 06/07 0405 O2 Flow Rate 0 06/07 0405 Temp 98.2 06/06 2000 24 hour I O ending at 0700: 06/07 0700 06/06 1900 Intake Total Output Total 1650 Balance -1650 Output, Urine 1650 Patient 81.9 kg Weight Weight Standing scale Measurement Method PATIENT WEIGHT: Weight (lb): 180 Weight (oz): 8.94 Weight (kg): 81.900 Physical Exam General appearance: alert, awake, oriented Wound/incision: Location: Sternum clean and dry HEENT: mucosal membranes moist Neck: non-tender Cardiovascular: BP/pulses equal bilat. Respiratory: decreased breath sounds Abdomen: soft, non-tender Extremities: dry, moves all Musculoskeletal: full range of motion Neuro/CERTIFIED NURSES AIDE: alert, oriented X 3 Skin: dry Diagnosis, Assessment Plan Free Text A P: This is an 83-year-old gentleman with a past med [facility] history of atrial fibrillation, status post failed ablation in the past, on Eliquis therapy, diabetes, hypothyroid, who was found to have sig nificant mitral valve regurgitation with a flail mitral valve leaflet. He is followed by his custom grinder Dr. Lobito hernandez. He has an outpatient left heart catheterization scheduled in the near future. He denies any history of stroke, denies any hist ory of chest pains. He is on Eliquis therapy for his atrial fibrilla tion. Patient admitted for mitral valve replacement fo r flail mitral valve leaflet. Assessment/plan 1. Mitral valve regurgitation 2. Atrial fibrillation Patient is admitted for mitr al valve replacement with PVI, left atrial appendage amputation. This was discussed with the patient by Dr. Duong siddiqi. The risk of the operation including STS score, r isk of , bleeding, heart attack, stroke, renal failur e, dialysis, prolonged ICU stay, tracheostomy, need for long-term rehabilitation etc. was discussed with the patient in depth. Patient's questions were ans wered and the patient agreed to proceed with surgery 06/03/23 1. Mitral valve replacement (29 Mitris valve). 2. Pulmonary vein isolation. 3. Isolation of left atrial appendage. 06/04/23 POD 1 AAOx3 Respiratory: On room air 94% Encourage IS, Deep Breathing, CXR reviewed monitor chest tube drainage Cardiac: Atrial paced, baseline appears to be [place] junctional GI: +gas, Continue Bowel regimen : Hilario in place UO: 800 Continue PT/OT DVT prophylaxis, SCDs in place Labs reveiwed-hemoglobin low we will give 1 unit of blood Patient seen and examined by Dr. Sanchez. Plan o f care discussed with multidisciplinary team 06/05/23 POD 2 S/P MVR, PVI, ALAA AAOx3 Respiratory: On room air 94% Encourage IS, Deep Breathing, CXR reviewed DC chest tube, Cardiac: A Paced @ 80 with V conduction, underlying rate 50-60, Obtain 12 lead GI: Continue Bowel regimen UO: 600 Continue PT/OT DVT prophylaxis, SCDs in place Labs reveiwed Patient seen and examined by Dr. Sanchez. Plan o f care discussed with multidisciplinary team Dc neck line. continue supportive care. 06/06/23 POD 3 S/P MVR, PVI, ALAA AAOx3 Respiratory: On room air 94% Encourage IS, Deep Breathing, CXR reviewed Cardiac: A Paced @ 80 with u nderlying bradycardia, 40s, beta-raul on hold we will consult EP. GI: Continue Bowel regimen UO: 1650 Continue PT/OT DVT prophylaxis, SCDs in place Labs reveiwed Patient seen and examined by Dr. Sanchez. Plan o f care discussed with multidisciplinary team 06/07/23 POD 4 S/P MVR, PVI, ALAA AAOx3 Respiratory: On room air 94% Encourage IS, Deep Breathing, CXR reviewed Cardiac: A Paced @ 80 with underlying bradycardi a, 40s, beta-raul on hold. EP consulted GI: Continue Bowel regimen UO: 1325 Continue PT/OT DVT prophylaxis, SCDs in place Labs reveiwed Patient seen and examined by Dr. Sanchez. Plan o f care discussed with multidisciplinary team DC Hilario today. Restart Flomax Appreciate EP input, continue ICU supportive car e Consultants: anesthesiology, cardiology, cardiov ascular surgery, critical/ paper testing supervisor, hospitalist at 1027 at 1156 RPT #:[id number] END OF REPORT 2023-06-07 07:37:00-00:00 [facility]) Cardiology Progress Note REPORT#:[id number] REPORT STATUS: Signed DATE:06/07/23 TIME: 736 PATIENT: ODIN ZENG UNIT #: [id number] ROOM/BED: [facility]-1 : 40 AGE: 83 SEX: M ATTEND: Ab javid Sanchez MD ADM AUTHOR: Kathe Bradshaw CNP * ALL edits or amendments must be made on the [employer]/computer document * Kathe Bradshaw 06/07/23 0737: Subjective Patient reports: No: complaints. Objective General VS/I O: 24 hour I O ending at 0700: 06/07 0700 06/06 1900 Intake Total Output Total 1650 Balance -1650 Output, Urine 1650 Patient 81.9 kg Weight Weight Standing scale Measurement Method Vital Signs: Date Time Temp Pulse Resp B/P B/P Pulse O2 O2 F low FiO2 Mean Ox Delivery Rate 06/07 0700 64 15 118/65 86 100 07/ 0630 80 22 132/66 92 100 07/ 0611 80 25 160/74 107 100 07/ 0500 80 15 120/59 85 98 07/21 0405 97 Room air 0 21 07/ 0400 80 15 110/58 79 97 07/ 0300 80 27 122/60 85 98 07/21 0200 80 23 114/56 80 97 07/21 0100 80 19 117/58 84 96 07/21 0000 80 12 115/59 80 98 07/20 2300 80 14 115/60 81 98 07/20 2200 80 25 114/57 80 97 07/20 2100 80 23 118/58 81 97 07/20 2000 36.8 07/20 1999 79 15 125/58 83 99 07/20 1936 99 Room air 0 21 07/20 1909 13 99 07/20 1900 68 22 110/55 78 100 07/20 1837 79 22 141/67 96 100 07/20 1800 79 23 115/55 79 100 07/20 1757 79 25 100 07/20 1730 78 16 122/60 83 99 07/20 1705 80 20 100 07/20 1700 80 16 130/87 101 100 07/20 1630 78 13 130/90 104 99 07/20 1600 80 22 122/61 85 99 07/20 1530 80 17 120/59 83 99 07/20 1501 100 Room air 21 07/20 1500 80 20 121/57 82 99 07/20 1430 80 30 98 07/20 1400 80 23 117/60 83 98 07/20 1330 80 23 115/56 80 98 07/20 1300 79 19 127/60 87 100 07/20 1230 80 14 116/56 80 99 07/20 1200 80 27 114/57 79 99 07/20 1130 67 27 107/58 77 99 07/20 1128 67 27 116/56 80 98 07/20 1100 66 27 111/55 76 100 07/20 1041 97 Room air 21 07 1000 66 26 132/57 91 100 07/20 0932 67 16 100 07/20 0929 83 24 122/71 92 100 07/20 0900 66 28 118/58 82 100 07/20 0800 66 15 129/60 86 96 07/20 0742 67 22 83 PATIENT WEIGHT: Weight (lb): 180 Weight (oz): 8.94 Weight (kg): 81.900 Medications: Active Meds + DC'd Last 24 Hrs Amiodarone HCl (CORDARONE) 200 MG BID PO Insulin Glargine (Semglee) 10 UNIT BID SUBQ Ipratropium [place] (ATROVENT) 500 MCG RTQ2H PRN PRN INH Cyanocobalamin (Vitamin B-12 500 mcg tab) 500 MC G DAILY PO Ferrous Sulfate (FERROUS SULFATE) 325 MG DAILY P O Bisacodyl (DULCOLAX) 10 MG ONCE PRN RECTAL Magnesium Hydroxide (MILK OF MAGNESIA) 30 ML ONC E PRN PO Atorvastatin Calcium (LIPITOR) 40 MG 2100 PO Insulin Human Lispro (HUMALOG) 0 AC HS SUBQ Polyethylene Glycol (MIRALAX) 17 GM DAILY PO Tamsulosin HCl (Flomax 0.4 mg) 0.4 MG PC BK PO Levothyroxine Sodium (Synthroid) 75 MCG DAILY 06 00 PO Aspirin (ASPIRIN) 81 MG DAILY PO Amiodarone HCl (CORDARONE) 200 MG TID PO (DC) Docusate Sodium (COLACE) 100 MG BID PO Gabapentin (NEURONTIN) 200 MG BID PO Metoprolol Tartrate (LOPRESSOR) 12.5 MG Q12HR PO (DC) Mupirocin (BACTROBAN 2% 22 GM OINTMENT) 1 APPLIC BID NASAL Sennosides (Senna Lax 8.6 MG TABLET) 17.2 MG BED TIME PO Ipratropium [place] (ATROVENT) 500 MCG RTQ4H INH (DC) Acetaminophen (TYLENOL) 650 MG Q4H PRN PRN PO Acetaminophen (TYLENOL) 650 MG Q4H PRN PRN RECTA L Calcium Chloride (CALCIUM CHLORIDE) 1 GM ASDIR P RN IV Dextrose/Water (DEXTROSE 10% IN WATER) 125 ML A SDIR PRN IV (CKD) Dextrose/Water (DEXTROSE 10% IN WATER) 250 ML DIR PRN IV (CKD) Epinephrine (ADRENALIN CHLORIDE) 4 MG ASDIR IV Dextrose/Water (DEXTROSE 5% WATER) 246 ML Glucagon (GLUCAGON) 1 MG ASDIR PRN IM Insulin Human Regular (HumuLIN R) 100 UNIT ASDIR IV (CKD) Sodium Chloride (SODIUM CHLORIDE 0.9%) 99 ML Magnesium Sulfate (MAGNESIUM SULFATE 4GM/SWFI 10 0ML) 100 ML ASDIR PRN IV Magnesium Sulfate (MAGNESIUM SULFATE 2GM/SWFI 50 ML) 50 ML ASDIR PRN IV Magnesium Sulfate/Dextrose (MAGNESIUM SULFATE 1G M/D5W 100ML) 100 ML ASDIR PRN IV Nitroglycerin/Dextrose (NITROGLYCERIN 50,000MCG/ D5W 250ML) 250 ML ASDIR IV Norepinephrine Bitartrate (NOREPINEPHRINE 8 MG/N S 250 ML) 250 ML TITRATE IV Ondansetron HCl (ZOFRAN) 4 MG Q6H PRN PRN IV Oxycodone HCl (ROXICODONE) 5 MG Q4H PRN PRN PO Oxycodone HCl (ROXICODONE) 10 MG Q4H PRN PRN PO Potassium Chloride (KCL 20MEQ/SWFI 100ML) 100 ML ASDIR PRN IV Sodium Bicarbonate (SODIUM BICARBONATE) 50 MEQ A SDIR PRN IV Sodium Chloride (SODIUM CHLORIDE) 20 ML ASDIR IV Lactated Ringer's (LACTATED RINGERS) 1,000 ML SD EOP ONCALL IV Lidocaine HCl (LIDOCAINE HCL/PF) 2 ML PREOP ONCA LL LOCAL Lidocaine HCl (LIDOCAINE HCL/PF) 2 ML PREOP ONCA LL LOCAL Sodium Chloride (SODIUM CHLORIDE 0.9%) 500 ML SD EOP ONCALL IV Sodium Chloride (SODIUM CHLORIDE 0.9%) 500 ML SD EOP ONCALL IV Sodium Chloride (SODIUM CHLORIDE 0.9%) 1,000 ML PREOP ONCALL IV Sodium Chloride (SODIUM CHLORIDE) 5 ML ASDIR SD N IV Sodium Chloride (SODIUM CHLORIDE) 10 ML ASDIR SD N IV Sodium Chloride (SODIUM CHLORIDE 0.9%) 250 ML DIR PRN IV Pacemaker: external Physical Exam General appearance: alert, awake Neck: no JVD Cardiovascular: CV assessment: regular rate and rhythm, pedal p ulses present Respiratory: clear to auscultation, no distress Abdomen: soft, non-tender, normal bowel sounds, no distention Genitourinary: urinary catheter, urine Lower extremity: LE assessment: no calf tenderness, no edema Musculoskeletal: normal inspection Neuro/CERTIFIED NURSES AIDE: alert Skin: dry, intact Psychiatry: normal affect, normal mood Results Findings/Data: Laboratory Tests 06/07 162 1131 Chemistry Sodium (134 - 147 mEq/L) 140 Potassium (3.4 - 5.0 mEq/L) 4.1 Chloride (100 - 108 mEq/L) 106 Carbon Dioxide (21 - 33 mEq/l) 27 Anion Gap (0 - 20) 11 BUN (7 - 18 mg/dL) 11 Creatinine (0.6 - 1.3 mg/dL) 0.9 Glomerular Filtr Rate (70 - 80) 84.7 H Glucose (70 - 110 mg/dL) 186 H POC Glucose (70 - 110 MG/DL) 193 H 191 H 226 H Calcium (8.0 - 10.5 mg/dL) 7.5 L Magnesium (1.80 - 2.40 mg/dL) 2.00 Total Bilirubin (0.0 - 1.0 mg/dL) 0.50 Direct Bilirubin (0.0 - 0.30 MG/DL) 0.20 Indirect Bilirubin (MG/DL) 0.30 AST (15 - 37 IUnit/L) 44 H ALT (30 - 65 IUnit/L) 20 L Total Alk Phosphatase (20 - 125 IUnit/L) 42 Total Protein (6.4 - 8.2 g/dL) 5.4 L Albumin (3.4 - 5.0 g/dL) 2.90 L Laboratory Tests 06/07 223 Hematology WBC (4.5 - 11.0 x10 3/uL) 11.0 RBC (4.00 - 5.60 x10 6/uL) 2.51 L Hgb (12.5 - 16.9 g/dL) 7.7 L Hct (37.5 - 50.7 %) 22.9 L MCV (81.0 - 99.0 fL) 91.2 MCH (27.0 - 33.0 pg) 30.7 MCHC (33.0 - 37.0 g/dL) 33.6 RDW (11.5 - 14.5 %) 13.9 Plt Count (150 - 400 x10 3/uL) 89 L MPV (7.0 - 9.0 fL) 12.0 H Neut % (Auto) (56.0 - 77.0 %) 75.3 Lymph % (Auto) (14.0 - 32.0 %) 14.2 [place] % (Auto) (4.8 - 9.0 %) 7.3 Eos % (Auto) (0.3 - 3.7 %) 1.8 Baso % (Auto) (0.0 - 2.0 %) 0.2 Neut # (Auto) (2.0 - 7.6 x10 3/uL) 8.30 H Lymph # (Auto) (1.0 - 3.8 x10 3/uL) 1.57 [place] # (Auto) (0.1 - 0.8 x10 3/uL) 0.81 H Eos # (Auto) (0.0 - 0.2 x10 3/uL) 0.20 Baso # (Auto) (0.0 - 0.2 x10 3/uL) 0.02 Abs Immat Gran (auto) (0.00 - 0.03 x10 3/uL) 0 .13 H Add Manual Diff NO Immature Gran % (0.0 - 2.0 %) 1.2 Nucleated RBC % (0 - 0 %) 0.5 H Nucleated RBCs # (Man) (0.0 - 0.1 x10 3/uL) 0.0 5 Laboratory Tests 06/07 0223 Chemistry Magnesium (1.80 - 2.40 mg/dL) 2.00 Radiology data: Recent Impressions: RADIOLOGY - XR CHEST 1 V 06/07 0656 Report Impression - Status: SIGNED Entered: 06/07/2023 0950 IMPRESSION: 1. Slight apparent improvement of bilateral infr ahilar/lower lobe opacities. However, interval differences may be secondary to differences in technique/positioning. 2. Suspected unchanged small left-sided pleural effusion. 3. Trace, suspected but unchanged pneumopericard ium. Impression By: [email or web address] Trev Meredith Results: labs reviewed, vital signs reviewed Telemetry Interpretation: sinus rhythm when off pacer Diagnosis, Assessment Plan Plan discussed with: patient, collaborating MD, nurse Free Text DxA P Notes Free Text DxA P Notes: Cardiology consultation s/p mitral valve replace ment on this 83 YO gentleman with PMHx of paroxysmal atri al fibrillation, DM, hypothyrodism who was found to have severe mitral valve prolapse . 1. Severe mitral valve prolapse s/p Mitral Valve Replacement * doing well * post-op care per CTS * post-op bradycardia - EP consulted * pacer was temp paused - showed sinus rhythm 2. Atrial fibrillation s/p PVI and ALAA * amiodarone decreased * BB dc'd 3. Junctional Bradycardia * EP consult * underlying rhythm sinus rhythm when pacer was paused today MDM by Dr. Diggs. Molina Diggs 06/08/23 1522: Attestations Physician Attestation Agree w/findings plan: I have seen and examined the pt, I Agree with e findings and plan as documented by Kathe Bradshaw. at 1219 Electronically Signed by Molina Diggs MD on at 1522 RPT #:[id number] END OF REPORT 2023-06-06 11:05:00-00:00 [id number] [address] PATIENT NAME: ODIN ZENG ADMIT DATE: 06/03/23 ACCOUNT NO: [id number] ROOM NO: [id number] AGE: 83 REPORT TYPE: eELECTROCARDIOGRAM REPORT SEX: M ADMITTING PHYSICIAN:Abiodun Sanchez MD ATTENDING PHYSICIAN:Abiodun Sanchez MD Order: [id number] Test Reason : EKG Test Date/Time Stamp: SatJun 06 2023 11:05:06 Blood Pressure : / mmHG Vent. Rate : 070 BPM Atrial Rate : 000 BPM P-R Int : 000 ms QRS Dur : 082 ms QT Int : 436 ms P-R-T Axes : 000 044 067 degree s QTc Int : 470 ms Normal sinus rhythm with 1st degree AV block Low voltage QRS Abnormal ECG When compared with ECG of 06-JUN-2023 07:14, Significant changes have occurred Confirmed by TOÑA BERTRAND ([id number]) on 3 8:05:40 AM Referred By: Avila Sanchez Confirmed by:TOÑA BERTRAND at 0805 PATIENT NAME: ODIN ZENG 1 2023-06-06 10:54:00-00:00 [facility] ([facility]) EP Consultation Note REPORT#:[id number] REPORT STATUS: Signed DATE:06/06/23 TIME: 1054 PATIENT: ODIN ZENG UNIT #: [id number] ROOM/BED: [place] [address] : 40 AGE: 83 SEX: M ATTEND: Ab javid Sanchez MD ADM AUTHOR: Suzie Cooper BACK HOE OPERATOR * ALL edits or amendments must be made on the [employer]/computer document * Marita Cooper 06/06/23 1054: History of Present Illness Requesting clinician: Dr. Diggs Reason for consult: bradycardia Chief complaint: SOB PCP: PCP: Mitesh Muhammad MD HPI: The patient is an 83-year-old male who was found to have severe mitral valve prolapse s/p mitral valve replacement with PMHx of paroxysmal atrial fibrillation, DM, hypothyrod ism. He is seen post-op. He is extubated, awake and alert. EP consulted for robert ycardia, junctional rhythm post-op. Thank you kindly for the consultation and the opportunity to participate in the patient's plan of care. History - Adult longitudinal Additional medical history: 1. Atrial fibrillation on Eliquis 2. Hypothyroidism 3. Diabetes mellitus Additional surgical history: 1. afib ablation Additional family history: non contributory Alcohol use: Denies EtOH use Drug use: Denies recreational drugs Smoking status for patients 13 years old or olde r: Former Smoker Packs per day: 3 Years smoked: 18 Pack years: 54 Allergies: Coded Allergies: No Known Allergies (05/17/23) Ambulatory status: Independent Review of Systems Constitutional: Reports: fatigue, generalized weakness. Skin: Denies: rash, swelling. Allergy/Immun: Denies: allergic reaction. Eyes: Denies: visual loss/blurred. ENT: Denies: nasal congestion. Respiratory: Denies: SOB, wheezing. Cardiovascular: Denies: chest pain, palpitations. GI: Denies: abdominal pain, nausea, vomiting. : Denies: dysuria, flank pain. Musculoskeletal: Denies: extremity swelling. Heme: Denies: bleeding. Endocrine: Denies: weight gain, weight loss. Neuro: Denies: change in LOC, confusion. Psych: Denies: agitation, anxiety. All systems rev neg: except as marked Objective VS/I O Laboratory Tests 06/06/23 0320: [Embedded Image Not Available] Current Medications Sig/Stephanie Start time Last Medication Dose Route Stop Time Status Admin Ipratropium [place] 500 MCG RTQ2H PRN PRN 06/06 1521 AC INH 07/06 1520 Cyanocobalamin 500 MCG DAILY 06/06 09 AC 05/19 0 PO 07/06 08 0733 Ferrous Sulfate 325 MG DAILY 06/06 09 AC 05/19 0 PO 07/06 0859 0733 Potassium Chloride 20 MEQ ONCE ONE 06/06 615 D C 06/06 PO 06/06 0616 0607 Bisacodyl 10 MG ONCE PRN 06/05 1200 AC RECTAL 07/05 1159 Magnesium Hydroxide 30 ML ONCE PRN 06/05 1200 A C PO Atorvastatin Calcium 40 MG 06/04 AC 06/05 PO 07/04 Insulin Human Lispro 0 AC HS 06/04 1130 AC 05/19 0 SUBQ 07/04 112 0736 Polyethylene Glycol 17 GM DAILY 06/04 09 AC 0 06/05 PO 07/04 0859 0949 Tamsulosin HCl 0.4 MG PC BK 06/04 09 AC 06/06 PO 07/04 0859 0735 Levothyroxine Sodium 75 MCG DAILY 0606/04 16 AC 06/06 PO 07/04 0615 0606 Aspirin 81 MG DAILY 06/03 2121 AC 06/06 PO 07/03 2120 0735 Amiodarone HCl 200 MG TID 06/03 2100 AC 06/05 PO 07/03 Docusate Sodium 100 MG BID 06/03 2100 AC 06/05 PO 07/03 Gabapentin 200 MG BID 06/03 2100 AC 06/06 PO 06/08 0901 0734 Metoprolol Tartrate 12.5 MG Q12HR 06/03 2100 DA PO 07/03 2059 Mupirocin 1 APPLIC BID 06/03 2100 AC 06/06 NASAL 06/08 0901 0735 Sennosides 17.2 MG BEDTIME 06/03 2100 AC 06/04 PO 07/03 Ipratropium [place] 500 MCG RTQ4H 06/03 1600 AC 06/06 INH 06/06 1521 1041 Acetaminophen 650 MG Q4H PRN PRN 06/03 1530 AC 06/06 PO 07/03 1529 0734 Acetaminophen 650 MG Q4H PRN PRN 06/03 1530 AC RECTAL 07/03 1529 Calcium Chloride 1 GM ASDIR PRN 06/03 1530 AC IV 07/03 1529 Dextrose/Water 125 ML ASDIR PRN 06/03 1530 CKD IV 07/03 1529 Dextrose/Water 250 ML ASDIR PRN 06/03 1530 CKD IV 07/03 1529 Epinephrine 4 MG ASDIR 06/03 1530 AC Dextrose/Water 246 ML IV 07/03 1529 Glucagon 1 MG ASDIR PRN 06/03 1530 AC IM 07/03 1529 Insulin Human Regular 100 UNIT ASDIR 06/03 1530 CKD Sodium Chloride 99 ML IV 07/03 1529 Magnesium Sulfate 100 ML ASDIR PRN 06/03 1530 A C IV 07/03 1529 Magnesium Sulfate 50 ML ASDIR PRN 06/03 1530 AC IV 07/03 1529 Magnesium Sulfate/ 100 ML ASDIR PRN 06/03 1530 AC 06/06 Dextrose IV 07/03 1529 0606 Nitroglycerin/ 250 ML ASDIR 06/03 1530 AC Dextrose IV 07/03 1529 Norepinephrine 250 ML TITRATE 06/03 1530 AC Bitartrate IV 07/03 1529 Ondansetron HCl 4 MG Q6H PRN PRN 06/03 1530 AC IV 07/03 1529 Oxycodone HCl 5 MG Q4H PRN PRN 06/03 1530 AC PO 06/08 1529 1401 Oxycodone HCl 10 MG Q4H PRN PRN 06/03 1530 AC PO 06/08 1529 Potassium Chloride 100 ML ASDIR PRN 06/03 1530 AC 06/03 IV 07/03 1529 2258 Sodium Bicarbonate 50 MEQ ASDIR PRN 06/03 1530 AC 06/03 IV 07/03 1529 1731 Sodium Chloride 20 ML ASDIR 06/03 1145 AC IV 07/03 1144 Lactated Ringer's 1,000 ML PREOP ONCALL 05/31 1 615 AC IV 06/30 2359 Lidocaine HCl 2 ML PREOP ONCALL 05/31 1615 AC LOCAL 06/30 2359 Lidocaine HCl 2 ML PREOP ONCALL 05/31 1615 AC LOCAL 06/30 2359 Sodium Chloride 500 ML PREOP ONCALL 05/31 1615 AC IV 06/30 2359 Sodium Chloride 500 ML PREOP ONCALL 05/31 1615 AC IV 06/30 2359 Sodium Chloride 1,000 ML PREOP ONCALL 05/31 161 5 AC IV 06/30 2359 Sodium Chloride 5 ML ASDIR PRN 05/31 1615 AC IV 06/30 1614 Sodium Chloride 10 ML ASDIR PRN 05/31 1615 AC IV 06/30 1614 Sodium Chloride 250 ML ASDIR PRN 05/31 1615 AC IV 06/30 1614 Last Documented: Result Date Time Pulse Ox 100 06/06 0932 Pulse 67 06/06 0932 Resp 16 06/06 0932 B/P 122/71 06/06 0929 B/P Mean 92 06/06 0929 FiO2 21 06/06 0724 O2 Delivery Room air 06/06 0724 Temp 36.9 06/06 0600 O2 Flow Rate 2 06/04 0800 24 hour I O ending at 0700: 06/06 0700 06/05 1900 Intake Total 340.00 720 Output Total 1200 450 Balance -860.00 270 Intake, IV 100.00 Intake, Oral 240 720 Number 1 Bowel Movements Output, Urine 1200 450 Patient 82.9 kg Weight Weight Standing scale Measurement Method PATIENT WEIGHT: Weight (lb): 182 Weight (oz): 12.21 Weight (kg): 82.900 General appearance: alert, awake, oriented, no a cute distress, no respiratory distress HEENT: mucosal membranes moist Neck: full range of motion, non-tender Cardiovascular: CV assessment: bradycardia, irregular rhythm, p edal pulses present Respiratory: decreased breath sounds, no distres s Abdomen: soft, normal bowel sounds Genitourinary: no flank pain Extremities: edema, dry, moves all Musculoskeletal: normal inspection Neuro/CERTIFIED NURSES AIDE: alert, oriented X 3, normal speech Skin: dry, intact Psychiatry: normal affect EKG Interpretation: atrial fibrillation, paced Treatment Prophylaxis Treatment Prophylaxis Oxygen: room air Diagnosis, Assessment Plan Free Text A P: Assessment: 1. Symptomatic bradycardia/sick sinus sydrome - EKG showed accelerated junctional rhythm rate 70 - On tele, junctional 60s, atrial pacing at 68 v ia epicardial wires - BP stable - Discontinue BB, decrease amiodarone - Patient awake, alert, OOB in chair - Denies CP, SOB, palpitations 2. Junctional rhythm 3. Severe mitral valve prola pse s/p Mitral Valve Replacement, PVI, Isolation FLEX 06/03/2023 4. Atrial fibrillation s/p PVI and ALAA 5. CAD, non-obstructive Plan/recommendations: - Continuous tele monitoring - AVOID AV rubi blocking agents - Decrease amiodarone dose - Post-op care per CVS team - If no improvement with heart rate/rhythm may n eed pacemaker - Atrial pacing via epicardial wires as needed - Will follow and adjust therapies as clinical c ourse dictates Consultants: anesthesiology, cardiology, cardiov ascular surgery, critical/ paper testing supervisor, hospitalist Plan discussed with: patient Code status: full code Arnie Payne 06/12/23 0943: Attestations Attestation needed: supervising physician Physician Attestation Agree w/findings plan: Patient seen and examined on 06/06/2023. I agree with the findings and plan as documented by Suzie Cooper NP. at 1312 at 0943 RPT #:[id number] END OF REPORT 2023-06-06 09:56:00-00:00 [facility] Hospitalist Progress Note REPORT#:[id number] REPORT STATUS: Signed DATE:06/06/23 TIME: 955 PATIENT: ODIN ZENG UNIT #: [id number] [address]: [address] : 40 AGE: 83 SEX: M ATTEND: Ramo Sanchez MD ADM AUTHOR: Shane Willoughby NP * ALL edits or amendments must be made on the [employer]/computer document * Subjective Chief complaint: He is feeling better. His breathing is stable. On RA. Using IS. No Cp, fever, chills. BP and HR stable. Review of Systems Constitutional: Reports: fatigue, generalized weakness. Allergy/Immun: Denies: anaphylaxis, hives, itching, rhinorrhea. Respiratory: Denies: REYES (dyspnea on exer tion), parox nocturnal dyspnea, pleurisy, pneumonia, SOB. Cardiovascular: Denies: chest pain, edema, orthopnea, palpitatio ns. GI: Denies: anorexia, diarrhea, hematemesis. : Denies: flank pain, hematuria, penile lesion, te sticular swelling. Musculoskeletal: Denies: extremity pain, joint pain, lumbar pain. Endocrine: Denies: heat intolerance, polyphagia. Neuro: Denies: bowel dysfunction, confusion, gait probl em, lightheaded, seizure. Objective General VS/I O: Vital Signs: Date Time Temp Pulse Resp B/P B/P Pulse O2 O2 Flow FiO2 Mean Ox Delivery Rate / 0932 67 16 100 07/20 0929 83 24 122/71 92 100 07/20 0900 66 28 118/58 82 100 07/20 0800 66 15 129/60 86 96 07/20 0742 67 22 83 07/20 0717 64 17 112/58 82 95 07/20 0701 68 27 150/68 98 96 07/20 0700 68 27 99 07/20 0600 36.9 07/20 0600 80 16 125/61 87 98 07/20 0500 75 23 135/72 96 99 07/20 0400 80 26 121/58 83 96 07/20 0300 79 13 109/58 80 95 07/20 0200 79 18 122/60 86 96 07/20 0100 80 14 119/58 83 95 07/20 0006 80 22 121/59 83 95 07/20 0000 80 28 94 07/19 2300 80 20 112/58 78 93 07/19 2214 79 18 166/79 110 96 07/19 2200 80 17 07/19 2100 80 16 108/56 75 95 06/05 2000 37.1 06/05 2000 80 11 131/61 88 96 06/05 1935 97 Room air 06/05 1900 79 18 115/56 80 97 06/05 1800 79 27 134/61 88 96 06/05 1700 80 31 119/57 82 93 06/05 1600 36.9 80 28 114/55 78 94 06/05 1500 80 26 124/58 83 96 06/05 1424 97 Room air 21 06/05 1400 79 24 123/58 83 97 06/05 1300 79 25 115/57 82 98 06/05 1200 36.9 80 28 107/53 75 98 06/05 1101 69 21 98/54 72 98 06/05 1101 95 Room air 06/05 1001 86 30 118/56 80 98 24 hour I O ending at 0700: 06/06 0700 06/05 1900 Intake Total 340.00 720 Output Total 1200 450 Balance -860.00 270 Intake, IV 100.00 Intake, Oral 240 720 Number 1 Bowel Movements Output, Urine 1200 450 Patient 82.9 kg Weight Weight Standing scale Measurement Method PATIENT WEIGHT: Weight (lb): 182 Weight (oz): 12.21 Weight (kg): 82.900 Medications: Active Meds + DC'd Last 24 Hrs Ipratropium [place] (ATROVENT) 500 MCG RTQ2H PRN PRN INH Cyanocobalamin (Vitamin B-12 500 mcg tab) 500 MC G DAILY PO Ferrous Sulfate (FERROUS SULFATE) 325 MG DAILY P O Potassium Chloride (POTASSIUM CHLORIDE 20MEQ TAB .ER) 20 MEQ ONCE ONE PO (DC) Bisacodyl (DULCOLAX) 10 MG ONCE PRN RECTAL Magnesium Hydroxide (MILK OF MAGNESIA) 30 ML ONC E PRN PO Atorvastatin Calcium (LIPITOR) 40 MG 2100 PO Insulin Human Lispro (HUMALOG) 0 AC HS SUBQ Polyethylene Glycol (MIRALAX) 17 GM DAILY PO Tamsulosin HCl (Flomax 0.4 mg) 0.4 MG PC BK PO Levothyroxine Sodium (Synthroid) 75 MCG DAILY 06 00 PO Aspirin (ASPIRIN) 81 MG DAILY PO Amiodarone HCl (CORDARONE) 200 MG TID PO Docusate Sodium (COLACE) 100 MG BID PO Gabapentin (NEURONTIN) 200 MG BID PO Metoprolol Tartrate (LOPRESSOR) 12.5 MG Q12HR PO (DA) Mupirocin (BACTROBAN 2% 22 GM OINTMENT) 1 APPLIC BID NASAL Sennosides (Senna Lax 8.6 MG TABLET) 17.2 MG BED TIME PO Ipratropium [place] (ATROVENT) 500 MCG RTQ4H INH Acetaminophen (TYLENOL) 650 MG Q4H PRN PRN PO Acetaminophen (TYLENOL) 650 MG Q4H PRN PRN RECTA L Calcium Chloride (CALCIUM CHLORIDE) 1 GM ASDIR P RN IV Dextrose/Water (DEXTROSE 10% IN WATER) 125 ML DIR PRN IV (CKD) Dextrose/Water (DEXTROSE 10% IN WATER) 250 ML DIR PRN IV (CKD) Epinephrine (ADRENALIN CHLORIDE) 4 MG ASDIR IV Dextrose/Water (DEXTROSE 5% WATER) 246 ML Glucagon (GLUCAGON) 1 MG ASDIR PRN IM Insulin Human Regular (HumuLIN R) 100 UNIT ASDIR IV (CKD) Sodium Chloride (SODIUM CHLORIDE 0.9%) 99 ML Magnesium Sulfate (MAGNESIUM SULFATE 4GM/SWFI 10 0ML) 100 ML ASDIR PRN IV Magnesium Sulfate (MAGNESIUM SULFATE 2GM/SWFI 50 ML) 50 ML ASDIR PRN IV Magnesium Sulfate/Dextrose (MAGNESIUM SULFATE 1G M/D5W 100ML) 100 ML ASDIR PRN IV Nitroglycerin/Dextrose (NITROGLYCERIN 50,000MCG/ D5W 250ML) 250 ML ASDIR IV Norepinephrine Bitartrate (NOREPINEPHRINE 8 MG/N S 250 ML) 250 ML TITRATE IV Ondansetron HCl (ZOFRAN) 4 MG Q6H PRN PRN IV Oxycodone HCl (ROXICODONE) 5 MG Q4H PRN PRN PO Oxycodone HCl (ROXICODONE) 10 MG Q4H PRN PRN PO Potassium Chloride (KCL 20MEQ/SWFI 100ML) 100 ML ASDIR PRN IV Sodium Bicarbonate (SODIUM BICARBONATE) 50 MEQ A SDIR PRN IV Sodium Chloride (SODIUM CHLORIDE) 20 ML ASDIR IV Lactated Ringer's (LACTATED RINGERS) 1,000 ML SD EOP ONCALL IV Lidocaine HCl (LIDOCAINE HCL/PF) 2 ML PREOP ONC ALL LOCAL Lidocaine HCl (LIDOCAINE HCL/PF) 2 ML PREOP ONCA LL LOCAL Sodium Chloride (SODIUM CHLORIDE 0.9%) 500 ML SD EOP ONCALL IV Sodium Chloride (SODIUM CHLORIDE 0.9%) 500 ML SD EOP ONCALL IV Sodium Chloride (SODIUM CHLORIDE 0.9%) 1,000 ML PREOP ONCALL IV Sodium Chloride (SODIUM CHLORIDE) 5 ML ASDIR PRN IV Sodium Chloride (SODIUM CHLORIDE) 10 ML ASDIR SD N IV Sodium Chloride (SODIUM CHLORIDE 0.9%) 250 ML DIR PRN IV Dietitian nutrition assessment The data set between the solid lines has been im ported from the dietitian's assessment. BMI Calculated: 27.8 Nutrition related diagnosis: Nutrition diagnosis details: Nutrition problem: Increased nutrient needs Nutrition etiology: Acute illness Nutrition signs and symptoms: HEALING NEEDS S/P SURGERY Nutrition prescription: 1. RECOMMEND CONTINUE CA RDIAC DIET, ADD EASY TO CHEW FOODS. 2. PROVIDE GLUCERNA TID WITH MEALS. 3. MO NITOR PO, WT, LABS, BM. Dietitian name: Flores Velasco, DIET Assessment completed: 06/04/23 Physical Exam General appearance: alert, awake Head/Eyes: atraumatic, normocephalic, PERRLA Neck: full range of motion, non-tender, normal thyroid, supple/no meningismus, no bruit/NL carotids, no JVD Cardiovascular: normal capillary refill, normal heart sounds, regular rate rhythm Respiratory: aerating well, symmetric expansion, no distress Abdomen: non-tender, normal bowel sounds, soft Genitourinary: no bladder distention, no flank p ain, no urinary catheter Extremities: no calf tenderness, no clubbing, no cyanosis Musculoskeletal: no muscle spasm Neuro/CERTIFIED NURSES AIDE: alert, oriented X 3, CNII-XII intact Results Findings/Data: Laboratory Tests 06/06 06/06 06/05 06/05 06/05 0734 319 1954 1708 1139 Chemistry Sodium (134 - 147 mEq/L) 135 Potassium (3.4 - 5.0 mEq/L) 3.5 Chloride (100 - 108 mEq/L) 103 Carbon Dioxide (21 - 33 mEq/l) 25 Anion Gap (0 - 20) 11 BUN (7 - 18 mg/dL) 13 Creatinine (0.6 - 1.3 mg/dL) 0.9 Glomerular Filtr Rate (70 - 80) 84.7 H Glucose (70 - 110 mg/dL) 200 H POC Glucose (70 - 110 MG/DL) 196 H 230 H 225 H 236 H Calcium (8.0 - 10.5 mg/dL) 8.3 Magnesium (1.80 - 2.40 mg/dL) 2.03 Total Bilirubin (0.0 - 1.0 mg/dL) 0.60 Direct Bilirubin (0.0 - 0.30 MG/DL) 0.30 Indirect Bilirubin (MG/DL) 0.30 AST (15 - 37 IUnit/L) 66 H ALT (30 - 65 IUnit/L) 22 L Total Alk Phosphatase (20 - 125 46 IUnit/L) Total Protein (6.4 - 8.2 g/dL) 5.6 L Albumin (3.4 - 5.0 g/dL) 3.10 L Laboratory Tests 06/06 0320 Hematology WBC (4.5 - 11.0 x10 3/uL) 13.8 H RBC (4.00 - 5.60 x10 6/uL) 2.86 L Hgb (12.5 - 16.9 g/dL) 8.6 L Hct (37.5 - 50.7 %) 25.3 L MCV (81.0 - 99.0 fL) 88.5 MCH (27.0 - 33.0 pg) 30.1 MCHC (33.0 - 37.0 g/dL) 34.0 RDW (11.5 - 14.5 %) 14.3 Plt Count (150 - 400 x10 3/uL) 61 L MPV (7.0 - 9.0 fL) 11.5 H Neut % (Auto) (56.0 - 77.0 %) 75.3 Lymph % (Auto) (14.0 - 32.0 %) 15.2 [place] % (Auto) (4.8 - 9.0 %) 7.0 Eos % (Auto) (0.3 - 3.7 %) 1.1 Baso % (Auto) (0.0 - 2.0 %) 0.2 Neut # (Auto) (2.0 - 7.6 x10 3/uL) 10.36 H Lymph # (Auto) (1.0 - 3.8 x10 3/uL) 2.09 [place] # (Auto) (0.1 - 0.8 x10 3/uL) 0.96 H Eos # (Auto) (0.0 - 0.2 x10 3/uL) 0.15 Baso # (Auto) (0.0 - 0.2 x10 3/uL) 0.03 Abs Immat Gran (auto) (0.00 - 0.03 x10 3/uL) 0. 16 H Add Manual Diff NO Immature Gran % (0.0 - 2.0 %) 1.2 Nucleated RBC % (0 - 0 %) 0.0 Nucleated RBCs # (Man) (0.0 - 0.1 x10 3/uL) 0.0 0 Radiology data: Recent Impressions: RADIOLOGY - XR CHEST 1 V 06/06 0507 Report Impression - Status: SIGNED Entered: 06/06/2023 0808 IMPRESSION: 1. Increased bibasilar pulmonary opacities. Mirna a suspected with inflammation in the differential. Atelectas is and layering pleural fluid could have a similar appearance. 2. Stable left basilar pleuroparenchymal changes . 3. Stable postoperative cardiomediastinal silhou ette with residual small volume pneumopericardium. Impression By: Walker Wills M.D. Results: labs reviewed, vital signs reviewed, vi mercedes signs stable, x-ray personally reviewed, current med profile rev'd Treatment Prophylaxis Treatment Prophylaxis Oxygen: room air Diagnosis, Assessment Plan Hospital course to date: Assessment and Plan: - Mitral regurgitation/Paroxysmal atrial fibrill s/p Mitral valve replacement and Pulmonary vein isolation, Isolation of left atrial appendage. - CP and SOB due to MR. - HX of atrial fibrillation, status post failed ablation in the past, on Eliquis therapy, diabetes, hypothyroid. Plan: CVICU. Monitor Respiratory status, breathing tx, o2 sup port. Monitor chest tube placement. Continue BB and Amiodarone, Lipitor. Pain meds. Antiemetics. Follow labs and replace as needed. SCDs for dVT ppx. Continue Monitor. Consultants: anesthesiology, cardiology, cardiov ascular surgery, critical/ paper testing supervisor, hospitalist Code status: full code Plan discussed with: patient, admitting physicia n, consultants, nurse Electronically Signed by Shane Willoughby BACK HOE OPERATOR on at 0958 RPT #:[id number] END OF REPORT 2023-06-06 07:46:00-00:00 [facility] ([facility]) Cardiology Progress Note REPORT#:[id number] REPORT STATUS: Signed DATE:06/06/23 TIME: 745 PATIENT: ODIN ZENG UNIT #: [id number] ROOM/BED: [place] [address] : 40 AGE: 83 SEX: M ATTEND: Ramo Sanchez MD ADM AUTHOR: Kathe Bradshaw GIFT WRAPPER * ALL edits or amendments must be made on the [employer]/computer document * Kathe Bradshaw 06/06/23 0746: Subjective Comments: Bradycardia, unable to wean off temp pacer. Objective General VS/I O: 24 hour I O ending at 0700: 06/06 0700 06/05 1900 Intake Total 340.00 720 Output Total 1200 450 Balance -860.00 270 Intake, IV 100.00 Intake, Oral 240 720 Number 1 Bowel Movements Output, Urine 1200 450 Patient 82.9 kg Weight Weight Standing scale Measurement Method PATIENT WEIGHT: Weight (lb): 182 Weight (oz): 12.21 Weight (kg): 82.900 Medications: Active Meds + DC'd Last 24 Hrs Ipratropium [place] (ATROVENT) 500 MCG RTQ2H PRN PRN INH Cyanocobalamin (Vitamin B-12 500 mcg tab) 500 MC G DAILY PO Ferrous Sulfate (FERROUS SULFATE) 325 MG DAILY P O Potassium Chloride (POTASSIUM CHLORIDE 20MEQ TAB .ER) 20 MEQ ONCE ONE PO (DC) Bisacodyl (DULCOLAX) 10 MG ONCE PRN RECTAL Magnesium Hydroxide (MILK OF MAGNESIA) 30 ML ONC E PRN PO Atorvastatin Calcium (LIPITOR) 40 MG 2100 PO Insulin Human Lispro (HUMALOG) 0 AC HS SUBQ Polyethylene Glycol (MIRALAX) 17 GM DAILY PO Tamsulosin HCl (Flomax 0.4 mg) 0.4 MG PC BK PO Levothyroxine Sodium (Synthroid) 75 MCG DAILY 06 00 PO Aspirin (ASPIRIN) 81 MG DAILY PO Amiodarone HCl (CORDARONE) 200 MG TID PO Docusate Sodium (COLACE) 100 MG BID PO Gabapentin (NEURONTIN) 200 MG BID PO Metoprolol Tartrate (LOPRESSOR) 12.5 MG Q12HR P O (DA) Mupirocin (BACTROBAN 2% 22 GM OINTMENT) 1 APPLIC BID NASAL Sennosides (Senna Lax 8.6 MG TABLET) 17.2 MG BED TIME PO Ipratropium [place] (ATROVENT) 500 MCG RTQ4H INH Acetaminophen (TYLENOL) 650 MG Q4H PRN PRN PO Acetaminophen (TYLENOL) 650 MG Q4H PRN PRN RECTA L Calcium Chloride (CALCIUM CHLORIDE) 1 GM ASDIR P RN IV Dextrose/Water (DEXTROSE 10% IN WATER) 125 ML DIR PRN IV (CKD) Dextrose/Water (DEXTROSE 10% IN WATER) 250 ML DIR PRN IV (CKD) Epinephrine (ADRENALIN CHLORIDE) 4 MG ASDIR IV Dextrose/Water (DEXTROSE 5% WATER) 246 ML Glucagon (GLUCAGON) 1 MG ASDIR PRN IM Insulin Human Regular (HumuLIN R) 100 UNIT ASDIR IV (CKD) Sodium Chloride (SODIUM CHLORIDE 0.9%) 99 ML Magnesium Sulfate (MAGNESIUM SULFATE 4GM/SWFI 10 0ML) 100 ML ASDIR PRN IV Magnesium Sulfate (MAGNESIUM SULFATE 2GM/SWFI 50 ML) 50 ML ASDIR PRN IV Magnesium Sulfate/Dextrose (MAGNESIUM SULFATE 1G M/D5W 100ML) 100 ML ASDIR PRN IV Nitroglycerin/Dextrose (NITROGLYCERIN 50,000MCG/ D5W 250ML) 250 ML ASDIR IV Norepinephrine Bitartrate (NOREPINEPHRINE 8 MG/N S 250 ML) 250 ML TITRATE IV Ondansetron HCl (ZOFRAN) 4 MG Q6H PRN PRN IV Oxycodone HCl (ROXICODONE) 5 MG Q4H PRN PRN PO Oxycodone HCl (ROXICODONE) 10 MG Q4H PRN PRN PO Potassium Chloride (KCL 20MEQ/SWFI 100ML) 100 ML ASDIR PRN IV Sodium Bicarbonate (SODIUM BICARBONATE) 50 MEQ A SDIR PRN IV Sodium Chloride (SODIUM CHLORIDE) 20 ML ASDIR IV Lactated Ringer's (LACTATED RINGERS) 1,000 ML SD EOP ONCALL IV Lidocaine HCl (LIDOCAINE HCL/PF) 2 ML PREOP ONCA LL LOCAL Lidocaine HCl (LIDOCAINE HCL/PF) 2 ML PREOP ONCA LL LOCAL Sodium Chloride (SODIUM CHLORIDE 0.9%) 500 ML SD EOP ONCALL IV Sodium Chloride (SODIUM CHLORIDE 0.9%) 500 ML SD EOP ONCALL IV Sodium Chloride (SODIUM CHLORIDE 0.9%) 1,000 ML PREOP ONCALL IV Sodium Chloride (SODIUM CHLORIDE) 5 ML ASDIR PRN IV Sodium Chloride (SODIUM CHLORIDE) 10 ML ASDIR SD N IV Sodium Chloride (SODIUM CHLORIDE 0.9%) 250 ML DIR PRN IV Physical Exam General appearance: alert, awake Neck: no JVD Cardiovascular: CV assessment: regular rate and rhythm Respiratory: clear to auscultation, no distress Abdomen: soft, non-tender, normal bowel sounds, no distention Genitourinary: urinary catheter, urine Lower extremity: LE assessment: no calf tenderness, no edema Musculoskeletal: normal inspection Neuro/CERTIFIED NURSES AIDE: alert Skin: dry, intact Psychiatry: normal affect, normal mood Results Findings/Data: Laboratory Tests 06/06 06/06 06/05 06/05 06/05 0734 0320 1955 1708 1139 Chemistry Sodium (134 - 147 mEq/L) 135 Potassium (3.4 - 5.0 mEq/L) 3.5 Chloride (100 - 108 mEq/L) 103 Carbon Dioxide (21 - 33 mEq/l) 25 Anion Gap (0 - 20) 11 BUN (7 - 18 mg/dL) 13 Creatinine (0.6 - 1.3 mg/dL) 0.9 Glomerular Filtr Rate (70 - 80) 84.7 H Glucose (70 - 110 mg/dL) 200 H POC Glucose (70 - 110 MG/DL) 196 H 230 H 225 H 236 H Calcium (8.0 - 10.5 mg/dL) 8.3 Magnesium (1.80 - 2.40 mg/dL) 2.03 Total Bilirubin (0.0 - 1.0 mg/dL) 0.60 Direct Bilirubin (0.0 - 0.30 MG/DL) 0.30 Indirect Bilirubin (MG/DL) 0.30 AST (15 - 37 IUnit/L) 66 H ALT (30 - 65 IUnit/L) 22 L Total Alk Phosphatase (20 - 125 46 IUnit/L) Total Protein (6.4 - 8.2 g/dL) 5.6 L Albumin (3.4 - 5.0 g/dL) 3.10 L Laboratory Tests 06/06 0320 Hematology WBC (4.5 - 11.0 x10 3/uL) 13.8 H RBC (4.00 - 5.60 x10 6/uL) 2.86 L Hgb (12.5 - 16.9 g/dL) 8.6 L Hct (37.5 - 50.7 %) 25.3 L MCV (81.0 - 99.0 fL) 88.5 MCH (27.0 - 33.0 pg) 30.1 MCHC (33.0 - 37.0 g/dL) 34.0 RDW (11.5 - 14.5 %) 14.3 Plt Count (150 - 400 x10 3/uL) 61 L MPV (7.0 - 9.0 fL) 11.5 H Neut % (Auto) (56.0 - 77.0 %) 75.3 Lymph % (Auto) (14.0 - 32.0 %) 15.2 [place] % (Auto) (4.8 - 9.0 %) 7.0 Eos % (Auto) (0.3 - 3.7 %) 1.1 Baso % (Auto) (0.0 - 2.0 %) 0.2 Neut # (Auto) (2.0 - 7.6 x10 3/uL) 10.36 H Lymph # (Auto) (1.0 - 3.8 x10 3/uL) 2.09 [place] # (Auto) (0.1 - 0.8 x10 3/uL) 0.96 H Eos # (Auto) (0.0 - 0.2 x10 3/uL) 0.15 Baso # (Auto) (0.0 - 0.2 x10 3/uL) 0.03 Abs Immat Gran (auto) (0.00 - 0.03 x10 3/uL) 0. 16 H Add Manual Diff NO Immature Gran % (0.0 - 2.0 %) 1.2 Nucleated RBC % (0 - 0 %) 0.0 Nucleated RBCs # (Man) (0.0 - 0.1 x10 3/uL) 0.0 0 Laboratory Tests 06/06 0320 Chemistry Magnesium (1.80 - 2.40 mg/dL) 2.03 Radiology data: Recent Impressions: RADIOLOGY - XR CHEST 1 V 06/06 0507 Report Impression - Status: SIGNED Entered: 06/06/2023 0825 IMPRESSION: 1. Increased bibasilar pulmonary opacities. Mirna a suspected with inflammation in the differential. Atelectas is and layering pleural fluid could have a similar appearance. 2. Stable left basilar pleuroparenchymal changes . 3. Stable postoperative cardiomediastinal silhou ette with residual small volume pneumopericardium. Impression By: Walker Wills M.D. Results: labs reviewed, vital signs reviewed, [facility] personally rev'd Telemetry Interpretation: AV paced, kareem when off pacer Diagnosis, Assessment Plan Plan discussed with: patient, collaborating MD, consultants (EP), primary caregiver Free Text DxA P Notes Free Text DxA P Notes: Cardiology consultation s/p mitral valve replace ment on this 83 YO gentleman with PMHx of paroxysmal atri al fibrillation, DM, hypothyrodism who was found to have severe mitral valve prolapse . 1. Severe mitral valve prolapse s/p Mitral Valve Replacement * doing well * post-op care per CTS * post-op bradycardia - EP consult 2. Atrial fibrillation s/p PVI and ALAA * hold amiodarone, metoprolol d/t kareem 3. Junctional Bradycardia * unable to wean off temp pacer * hold amiodarone and BB * EP consult MDM by Dr. Diggs. Molina Diggs 06/06/23 5083: Attestations Physician Attestation Agree w/findings plan: I have seen and examined the pt, I Agree with th e findings and plan as documented by Kathe Bradshaw. at 1256 Electronically Signed by Molina Diggs MD on at 1659 RPT #:[id number] END OF REPORT 2023-06-06 07:30:00-00:00 [facility] ([facility]) Critical Care Progress Note REPORT#:[id number] REPORT STATUS: Signed DATE:06/06/23 TIME: 729 PATIENT: ODIN ZENG UNIT #: [id number] ROOM/BED: [place] [address] : 40 AGE: 83 SEX: M ATTEND: Ramo Sanchez MD ADM AUTHOR: Geri Flynn MD * ALL edits or amendments must be made on the [employer]/computer document * Subjective Chief complaint: Severe mitral valve prolapse Myxomatous anterior leaflet Paroxysmal atrial fibrillation s/p failed ablati on Acute blood loss anemia Elective ventilator dependence Acute pulmonary insufficiency following major ca rdiothoracic surgery History of hypothyroidism HPI: 83-year-old gentleman with a past medical history of atrial fibrillation, status post failed ablation in the past, on Eliquis therapy, diabetes, hypothyroid, who was found to have significant mitral valve regur gitation with a flail mitral valve leaflet. He is followed by his cardiologis t Dr. Zaidi. He denies any history of stroke, denies any history of chest pains. He is on Eliquis therapy for his atrial fibrillation. Patient adm itted for mitral valve replacement for flail mitral valve leaflet. Patient underwent MV R on 06/03/2023. Surgery was uneventful. Patient is orally intubated and on mechanical ventilation. Patient was extubated in a timely fashion. Comments: OOB in the chair UOP 1.2L overnight remains paced in junctional rhythm 40-50s Objective General VS/I O Last Documented: Result Date Time Temp 98.5 06/06 0600 Pulse Ox 97 06/05 1935 O2 Delivery Room air 06/05 1935 B/P 115/56 06/05 1900 B/P Mean 80 06/05 1900 Pulse 79 06/05 1900 Resp 18 06/05 190 FiO2 21 06/05 1424 O2 Flow Rate 2 06/04 0800 24 hour I O ending at 0700: 06/06 0700 06/05 1900 Intake Total 340.00 720 Output Total 1200 450 Balance -860.00 270 Intake, IV 100.00 Intake, Oral 240 720 Number 1 Bowel Movements Output, Urine 1200 450 Patient 82.9 kg Weight Weight Standing scale Measurement Method PATIENT WEIGHT: Weight (lb): 182 Weight (oz): 12.21 Weight (kg): 82.900 Medications: Active Meds + DC'd Last 24 Hrs Ipratropium [place] (ATROVENT) 500 MCG RTQ2H PRN PRN INH Cyanocobalamin (Vitamin B-12 500 mcg tab) 500 MC G DAILY PO Ferrous Sulfate (FERROUS SULFATE) 325 MG DAILY P O Potassium Chloride (POTASSIUM CHLORIDE 20MEQ TAB .ER) 20 MEQ ONCE ONE PO (DC) Bisacodyl (DULCOLAX) 10 MG ONCE PRN RECTAL Magnesium Hydroxide (MILK OF MAGNESIA) 30 ML ONC E PRN PO Atorvastatin Calcium (LIPITOR) 40 MG 2100 PO Insulin Human Lispro (HUMALOG) 0 AC HS SUBQ Polyethylene Glycol (MIRALAX) 17 GM DAILY PO Tamsulosin HCl (Flomax 0.4 mg) 0.4 MG PC BK PO Levothyroxine Sodium (Synthroid) 75 MCG DAILY 06 00 PO Aspirin (ASPIRIN) 81 MG DAILY PO Amiodarone HCl (CORDARONE) 200 MG TID PO Docusate Sodium (COLACE) 100 MG BID PO Gabapentin (NEURONTIN) 200 MG BID PO Metoprolol Tartrate (LOPRESSOR) 12.5 MG Q12HR PO (Cal) Mupirocin (BACTROBAN 2% 22 GM OINTMENT) 1 APPLIC BID NASAL Sennosides (Senna Lax 8.6 MG TABLET) 17.2 MG BED TIME PO Ipratropium [place] (ATROVENT) 500 MCG RTQ4H INH Acetaminophen (TYLENOL) 650 MG Q4H PRN PRN PO Acetaminophen (TYLENOL) 650 MG Q4H PRN PRN RECTA L Calcium Chloride (CALCIUM CHLORIDE) 1 GM ASDIR P RN IV Dextrose/Water (DEXTROSE 10% IN WATER) 125 ML DIR PRN IV (CKD) Dextrose/Water (DEXTROSE 10% IN WATER) 250 ML DIR PRN IV (CKD) Epinephrine (ADRENALIN CHLORIDE) 4 MG ASDIR IV Dextrose/Water (DEXTROSE 5% WATER) 246 ML Glucagon (GLUCAGON) 1 MG ASDIR PRN IM Insulin Human Regular (HumuLIN R) 100 UNIT ASDIR IV (CKD) Sodium Chloride (SODIUM CHLORIDE 0.9%) 99 ML Magnesium Sulfate (MAGNESIUM SULFATE 4GM/SWFI 10 0ML) 100 ML ASDIR PRN IV Magnesium Sulfate (MAGNESIUM SULFATE 2GM/SWFI 50 ML) 50 ML ASDIR PRN IV Magnesium Sulfate/Dextrose (MAGNESIUM SULFATE 1G M/D5W 100ML) 100 ML ASDIR PRN IV Nitroglycerin/Dextrose (NITROGLYCERIN 50,000MCG/ D5W 250ML) 250 ML ASDIR IV Norepinephrine Bitartrate (NOREPINEPHRINE 8 MG/N S 250 ML) 250 ML TITRATE IV Ondansetron HCl (ZOFRAN) 4 MG Q6H PRN PRN IV Oxycodone HCl (ROXICODONE) 5 MG Q4H PRN PRN PO Oxycodone HCl (ROXICODONE) 10 MG Q4H PRN PRN PO Potassium Chloride (KCL 20MEQ/SWFI 100ML) 100 ML ASDIR PRN IV Sodium Bicarbonate (SODIUM BICARBONATE) 50 MEQ A SDIR PRN IV Sodium Chloride (SODIUM CHLORIDE) 20 ML ASDIR IV Lactated Ringer's (LACTATED RINGERS) 1,000 ML SD EOP ONCALL IV Lidocaine HCl (LIDOCAINE HCL/PF) 2 ML PREOP ONCA LL LOCAL Lidocaine HCl (LIDOCAINE HCL/PF) 2 ML PREOP ONCA LL LOCAL Sodium Chloride (SODIUM CHLORIDE 0.9%) 500 ML SD EOP ONCALL IV Sodium Chloride (SODIUM CHLORIDE 0.9%) 500 ML SD EOP ONCALL IV Sodium Chloride (SODIUM CHLORIDE 0.9%) 1,000 ML PREOP ONCALL IV Sodium Chloride (SODIUM CHLORIDE) 5 ML ASDIR PRN IV Sodium Chloride (SODIUM CHLORIDE) 10 ML ASDIR SD N IV Sodium Chloride (SODIUM CHLORIDE 0.9%) 250 ML DIR PRN IV Results Findings/data: Laboratory Tests 06/06 06/05 06/05 06/05 06/05 0320 1955 1708 1139 0734 Chemistry Sodium (134 - 147 mEq/L) 135 Potassium (3.4 - 5.0 mEq/L) 3.5 Chloride (100 - 108 mEq/L) 103 Carbon Dioxide (21 - 33 mEq/l) 25 Anion Gap (0 - 20) 11 BUN (7 - 18 mg/dL) 13 Creatinine (0.6 - 1.3 mg/dL) 0.9 Glomerular Filtr Rate (70 - 80) 84.7 H Glucose (70 - 110 mg/dL) 200 H POC Glucose (70 - 110 MG/DL) 230 H 225 H 236 H 203 H Calcium (8.0 - 10.5 mg/dL) 8.3 Magnesium (1.80 - 2.40 mg/dL) 2.03 Total Bilirubin (0.0 - 1.0 mg/dL) 0.60 Direct Bilirubin (0.0 - 0.30 MG/DL) 0.30 Indirect Bilirubin (MG/DL) 0.30 AST (15 - 37 IUnit/L) 66 H ALT (30 - 65 IUnit/L) 22 L Total Alk Phosphatase (20 - 125 IUnit/L) 46 Total Protein (6.4 - 8.2 g/dL) 5.6 L Albumin (3.4 - 5.0 g/dL) 3.10 L Laboratory Tests 06/06 0320 Hematology WBC (4.5 - 11.0 x10 3/uL) 13.8 H RBC (4.00 - 5.60 x10 6/uL) 2.86 L Hgb (12.5 - 16.9 g/dL) 8.6 L Hct (37.5 - 50.7 %) 25.3 L MCV (81.0 - 99.0 fL) 88.5 MCH (27.0 - 33.0 pg) 30.1 MCHC (33.0 - 37.0 g/dL) 34.0 RDW (11.5 - 14.5 %) 14.3 Plt Count (150 - 400 x10 3/uL) 61 L MPV (7.0 - 9.0 fL) 11.5 H Neut % (Auto) (56.0 - 77.0 %) 75.3 Lymph % (Auto) (14.0 - 32.0 %) 15.2 [place] % (Auto) (4.8 - 9.0 %) 7.0 Eos % (Auto) (0.3 - 3.7 %) 1.1 Baso % (Auto) (0.0 - 2.0 %) 0.2 Neut # (Auto) (2.0 - 7.6 x10 3/uL) 10.36 H Lymph # (Auto) (1.0 - 3.8 x10 3/uL) 2.09 [place] # (Auto) (0.1 - 0.8 x10 3/uL) 0.96 H Eos # (Auto) (0.0 - 0.2 x10 3/uL) 0.15 Baso # (Auto) (0.0 - 0.2 x10 3/uL) 0.03 Abs Immat Gran (auto) (0.00 - 0.03 x10 3/uL) 0. 16 H Add Manual Diff NO Immature Gran % (0.0 - 2.0 %) 1.2 Nucleated RBC % (0 - 0 %) 0.0 Nucleated RBCs # (Man) (0.0 - 0.1 x10 3/uL) 0.0 0 Laboratory Tests 06/06/23 0320: [Embedded Image Not Available] Radiology data RADIOLOGY - XR CHEST 1 V 06/06 0507 Report Impression - Status: SIGNED Entered: 06/06/2023 0825 IMPRESSION: 1. Increased bibasilar pulmonary opacities. Mirna a suspected with inflammation in the differential. Atelectas is and layering pleural fluid could have a similar appearance. 2. Stable left basilar pleuroparenchymal changes . 3. Stable postoperative cardiomediastinal silhou ette with residual small volume pneumopericardium. Impression By: Walker Wills M.D. Free Text Obj Notes Free Text Obj Notes: General appearance: Elderly male in no acute dis tress, interactive and conversational HEENT: atraumatic, EOMI, normocephalic, moist mu cous membranes Neck: non-tender, good range of motion, no zaria s or swelling Cardiovascular: S1-S2 regular rate and rhythm, p aced Respiratory: aerating well, symmetric ex pansion, no acute respiratory distress Abdomen: soft, non-tender, no distention, no gua rding, no rebound Extremities: Pedal pulses present, no clubbing, no cyanosis, no edema Neuro/CERTIFIED NURSES AIDE: alert, oriented X 3, CNII-XII grossly intact, no motor deficits Skin: dry, clean and intact surgery dressing Diagnosis, Assessment Plan Free text A P: 83-year-old male with 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 Patient was found to have severe MR with paroxysmal atrial fibrillati on. He underwent mitral valve replacement with 29 Mitris along with isolation of left atrial appendage. Patient had prolapsed mitral valve along with my xomatous thickened anterior leaflet. He is status post mitral valve replacem ent. Patient was low on intravascular volume with a CVP measuring 6 to 7 cm. Received IV fluid bolus. Normal EF. At the end of the procedure there was no evidence of mitral regurgitation or paravalvular leak. Mohini ent received 450 mL of Cell Saver, 1 L of IV fluids, no autologous transfusion was given. Patient received 25% albumin 1 infusion. Had 3 and mL of EBL and 900 mL of ur ine output. Upon transfer to the CVICU patient is on norepinephrine at 2 mcg, epinephrine at 2 and vasopressin at 0.04 units. Patient is currently on assist-control at 20 tidal volume 500 PEEP of 5 and 50% FiO2. Latest blood gas shows a pH of 7.35, pCO2 of 38 mmHg, pO2 of 235 mmHg and bicarbonate of 21 m mol with base excess at -4.3. Latest blood glucose 165 mg/ dL, creatinine 0.72 mg/dL, hemoglobin 9.8 g/dL with hematocrit of 29%. Potassium is 3.6 and is being repleted with 20 mg of potassium chloride and ionized calcium is 1.15. Patient will receive 1 amp of sodium bicarbonate for mild metabolic acidosis. Vital signs are stable with a heart rate of 80 sinus rhyth m, blood pressure is 126/74 mmHg, PA pressures 37/22 mmHg and respiratory rate 24 with pulse ox of 10 0%. Odin Zeng is a 83-year-old gentleman with a [facility] medical history of atrial fibrillation, status post failed ablation in the past, on Eliquis therapy, diabetes, hypothyroid, who was found to have sig nificant mitral valve regurgitation with a flail mitral valve leaflet. He is followed by his custom grinder Dr. Zaidi. He denies any history of stroke, denies any history of chest pains. He is on Eliquis therapy for his at rial fibrillation. Patient admitted for mitral valve replacement for flail mitral valve leaflet. Patient underwent MVR on 06/03/2023. Surgery was uneventf ul. Patient is orally intubated and on mechanical ventilation. Patient is postop day 0 after mitral valve repla cement Was evaluated for severe mitral regurgitation fr om mitral valve prolapse Myxomatous degeneration of the anterior leaflet Low CVP to begin with Patient was volume responsive and was given uzair talloids boluses Normal EF Mildly elevated PA pressures in the 40s Current PA pressure is 37/22 mmHg Vital signs are stable with a heart rate of 80 in sinus rhythm, blood pressure is 126/74 mmHg At the end of surgery no mitral regurgitation or paravalvular leak Patient is on vasopressor [place] pport with Epinephrine and Nor-epinephrine at 2 mics and vasopressin at 0.04 units Mild metabolic acidosis with a pH of 7.35, pCO2 of 38 mmHg, pO2 of 235 mmHg and bicarbonate of 21 mmol with base excess at -4.3 Give 1 amp of sodium bicarbonate INS calcium is 1.15 while the potassium is 3.6 m mol Give 20 mg of potassium chloride Glycemic control adequate at 165 mg/dL Creatinine is normal at 0.72 mg/dL Patient has acute blood loss anemia with a hemoglobin of 9.8 g/dL and hematocrit of 29% Does not meet transfusion threshold at this time Currently on assist-control at 20 tidal volume 5 00 PEEP of 5 and 50% FiO2 Patient is unresponsive at this time Should be fast-track extubation SCDs for DVT prophylaxis Yosi Gomez MD [facility] 06/03/2023 5.23 PM 06/04/2023 Patient seen and examined in CVICU room #2202 this morning and discussed during MDR as well as CT surgery rounds. Patient is pos top day 1 after mitral valve replacement. Major issues are hemoglobin of 7.7 g/dL this morning along with hypotension. Patient is being supported with nor epinephrine at 2 mcg. PA pressure 38/23 mmHg and oxygen saturation is 95% on room air. Patient will be transfused 1 unit of packed red cell. Urine outp ut is 30 mm/h. Cardiac index is 2.4. Patient is 100% paced at 79 bpm. Underly ing rhythm is junctional at 50. He is awake alert x4. Chest tube output 195 and 120 mL respectively and both chest tubes are going to be retaine d today. He is on insulin at 2 units/h and glucose range is 120 - 150 mg/dL. Patient wi ll be started on insulin sliding scale low intensity coverage before meal s and at bedtime and insulin drip will be discontinued. Patient is ambulating with physical therapy, tolerating oral diet, did not have bowel movemen t yet. Hilario catheter is retained. Patient was received in CVICU room #2202 on 06/03. He underwent mitral valve replacement. Patient was found to have sev ere MR with paroxysmal atrial fibrillation. He underwent mitral valve replacem [facility] with 29 Mitris along with isolation of left atrial appendage. Patient had prolapsed mitral valve along with myxomatous thickened anterior leaflet. He i s status post mitral valve replacement. Patient was low on intravas cular volume with a CVP measuring 6 to 7 cm. Received IV fluid bolus. Normal EF. At the end of the procedure there was no evidence of mitral regurgitation or paravalvular leak. Patient received 450 mL of Cell Saver, 1 L of IV fluids, no autol ogous transfusion was given. Patient received 25% albumin 1 infusion. Had 3 a nd mL of EBL and 900 mL of urine output. Upon transfer to the CVICU patient is on norepinephrine at 2 mcg, epinephrine at 2 and vasopre ssin at 0.04 units. Patient is currently on assist- control at 20 tidal volume 5 00 PEEP of 5 and 50% FiO2. Latest blood gas shows a pH of 7.35, pCO2 of 38 mmHg, pO2 of 235 mmHg and bicarbonate of 21 mmol with base excess at -4.3. Latest blood glucose 165 mg /dL, creatinine 0.72 mg/dL, hemoglobin 9.8 g/dL with hematocrit of 29%. Pota ssium is 3.6 and is being repleted with 20 mg of potassium chlorid e and ionized calcium is 1.15. Patient will receive 1 amp of sodium bicarbonate for mil d metabolic acidosis. Vital signs are stable with a hear t rate of 80 sinus rhythm, blood pressure is 126/74 mmHg, PA pressures 37/22 mmHg and respiratory ra te 24 with pulse ox of 100%. Odin Zeng is a 83-year-old gentleman with a [facility] medical history of atrial fibrillation, status post failed ablation in the past, on Eliquis therapy, diabetes, hypothyroid, who was found to have sig nificant mitral valve regurgitation with a flail mitral valve leaflet. He is followed by his custom grinder Dr. Zaidi. He denies any history of stroke, denies any history of chest pains. He is on Eliquis therapy for his at rial fibrillation. Patient admitted for mitral valve replacement for flail mitral valve leaflet. Patient underwent MVR on 06/03/2023. Surgery was uneventf ul. Patient is orally intubated and on mechanical ventilation. Patient was extubated in a timely fashion. Patient is postop day 1 after MVR (mitral valve replacement) No acute events reported overnight Patient does have soft blood pressure and hemogl obin of 7.7 g/dL He will be transfused 1 unit of packed red cell Urine output is 30 mL/h Monitor urine output and BMP Creatinine is 1.0 mg/dL Patient is 100% paced at 80 bpm Underlying rhythm is junctional at 50 bpm Cardiac index is 2.4 Patient is on room air at 95% PA pressures 38/23 mmHg Glycemic control with insulin drip at 2 units/h Latest blood glucose 162 mg/dL Blood pressure is soft and is being supported wi th norepinephrine at 2 mcg Expect to improve blood pressure with vo lume pentecostal with 1 unit of packed red cell transfusion Chest tube output is 195 mL and 120 mL respectiv jaren and both chest tubes are going to be retained for another 24 hours Hilario catheter is going to be retained Patient is ambulating with physical therapy and tolerating oral diet No bowel movement yet Patient is on bowel regimen SCDs for DVT prophylaxis Yosi Gomez MD [facility] 06/04/2023 11.28 AM 06/05/2023 Patient seen and examined in CVICU room #2202 this morning and discussed during MDR as well as CT surgery rounds. Patient is pos top day 2 after mitral valve replacement. Patient was 100% pacer depe ndent postoperatively. This morning he has been taken off of the pa cer and has intrinsic rhythm at 80. Blood pressures improved at 121/58 mmHg and patient is off of no repinephrine drip. Chest tube output was minimal at 10 mL and 40 mL re spectively overnight. Both chest tubes will be removed today. Patient will have central venous catheter removed as well. Beta-raul is on hold. Patient will cont inue on amiodarone. Hemoglobin is 8.9 g/dL this morning with a isabell l creatinine at 0.8 mg/dL. Urine output was 625 mL overnight. Patient has m ildly elevated blood glucose level and will be on sliding scale coverage moderate intensity before meals and at bedtime. Admission weight was 77 kg patient w eighs 82 kg today. He has not been diuresed yet. Blood gas this rehana claros shows a pH of 7.46, PCO2 of 33 mmHg, PO2 of 61 mmHg and bicarbonate of 23 mmol with b ase excess 8.4. Oxygen saturations being monitored closely and stands at 98% now on room air. Patient had acute blood loss anemia and received packed red cell transfusion as of 2022. Patient is ambulating with physical therapy, tolerating oral diet, did not have bowel movement yet. Hilario catheter is retai dar. Patient was received in CVICU room #2202 on 06/03. He underwent mitral valve replacement. Patient was found to have sev ere MR with paroxysmal atrial fibrillation. He underwent mitral valve replacem ent with 29 Mitris along with isolation of left atrial appendage. Patient had prolapsed mitral valve along with myxomatous thickened anterior leaflet. He i s status post mitral valve replacement. Patient was low on intravas cular volume with a CVP measuring 6 to 7 cm. Received IV fluid bolus. Normal EF. At the end of the procedure there was no evidence of mitral regurgitation or paravalvular leak. Patient received 450 mL of Cell Saver, 1 L of IV fluids, no autol ogous transfusion was given. Patient received 25% albumin 1 infusion. Had 3 a nd mL of EBL and 900 mL of urine output. Upon transfer to the CVICU patient is on norepinephrine at 2 mcg, epinephrine at 2 and vasopre ssin at 0.04 units. Patient is currently on assist- control at 20 tidal volume 5 00 PEEP of 5 and 50% FiO2. Latest blood gas shows a pH of 7.35, pCO2 of 38 mmHg, pO2 of 235 mmHg and bicarbonate of 21 mmol with base excess at -4.3. Latest blood glucose 165 mg /dL, creatinine 0.72 mg/dL, hemoglobin 9.8 g/dL with hematocrit of 29%. Pota ssium is 3.6 and is being repleted with 20 mg of potassium chlorid e and ionized calcium is 1.15. Patient will receive 1 amp of sodium bicarbonate for mil d metabolic acidosis. Vital signs are stable with a hear t rate of 80 sinus rhythm, blood pressure is 126/74 mmHg, PA pressures 37/22 mmHg and respiratory ra te 24 with pulse ox of 100%. Odin Zeng is a 83-year-old gentleman with a [facility] medical history of atrial fibrillation, status post failed ablation in the past, on Eliquis therapy, diabetes, hypothyroid, who was found to have sig nificant mitral valve regurgitation with a flail mitral valve leaflet. He is followed by his custom grinder Dr. Zaidi. He denies any history of stroke, denies any history of chest pains. He is on Eliquis therapy for his at rial fibrillation. Patient admitted for mitral valve replacement for flail mitral valve leaflet. Patient underwent MVR on 06/03/2023. Surgery was uneventf ul. Patient is orally intubated and on mechanical ventilation. Patient was extubated in a timely fashion. Patient is postop day 2 after MVR (mitral valve replacement) No acute events reported overnight Patient was 100% pacer dependent postoperatively Has intrinsic rhythm in the 80s now Blood pressure is stable at 121/58 mm Hg Oxygen has been weaned and discontinued Patient was hypotensive and had acute blood loss anemia Required 1 unit of packed red cell transfusion o n 06/04/2023 Posttransfusion hemoglobin is 8.9 g/dL Kidney function is normal with a creatinine of 0 .8 mg/dL Urine output adequate at 625 mL overnight Patient is diuresing spontaneously Admission weight was 77 kg and patient weighs 82 kg today Hold beta-raul for now Patient will be on amiodarone oral DC central venous catheter DC chest tube Glycemic control with insuli n sliding scale coverage before meals and at bedtime Hilario catheter to be retained Follow oxygen saturation as patient has marginal PaO2 on the arterial blood gas ABG this morning showed a pH of 7.46, PCO2 of 33 mmHg, PO2 of 61 mmHg and bicarbonate of 23 mmol with base excess at 0.4 Chest tube output was 10 mL and 40 mL respective ly Both chest tubes to be removed today SCDs for DVT prophylaxis 06/06 Appears neuro intact, multimodal pain control, a void sedatives and narcotics Sats well on NC, wean O2, encourage I-S, CXR rev iewed HD stable, remains in junctional rhythm with lux kup pacing, holding beta- blockers, EP consult Cr stable, voiding but urine retention, Hilario, Flomax, lactic acidosis cleared s /p resuscitation Oral diet as tolerated, bowel regimen, m ild transaminitis, trend LFTs, replete hypokalemia Low-grade temp with leukocytosis, WBC downtrendi ng, no ID issues at this time Hgb appears stable, no evidence of active bleedi ng, CTs removed Blood glucose uncontrolled with sliding scale in sulin, start low-dose Lantus Tolerating PT/OT and out of bed, DVT prophylaxis with SCDs Consultants: anesthesiology, cardiology, cardiov ascular surgery, critical/ paper testing supervisor, hospitalist Plan discussed with: patient , consultants, nurse, interdisc care team, pharmacy/ pharmacist Critical care time: Minutes: 37 Electronically Signed by Geri Flynn MD on 05/19 07/10 at 1151 RPT #:[id number] END OF REPORT 2023-06-06 07:14:00-00:00 [id number] [place] [id number] PATIENT NAME: ODIN ZENG ADMIT DATE: 06/03/23 ACCOUNT NO: [id number] ROOM NO: [facility] AGE: 83 REPORT TYPE: eELECTROCARDIOGRAM REPORT SEX: M ADMITTING PHYSICIAN:Abiodun Sanchez MD ATTENDING PHYSICIAN:Abiodun Sanchez MD Order: [id number] Test Reason : EKG Test Date/Time Stamp: SatJun 06 2023 07:14:50 Blood Pressure : / mmHG Vent. Rate : 064 BPM Atrial Rate : 000 BPM P-R Int : 000 ms QRS Dur : 074 ms QT Int : 444 ms P-R-T Axes : 000 031 072 degree s QTc Int : 458 ms Normal sinus rhythm with 1st degree AV block Abnormal ECG When compared with ECG of 05-JUN-2023 04:36, Significant changes have occurred Confirmed by TOÑA BERTRAND ([id number]) on 8:06:10 AM Referred By: Avila Sanchez Confirmed by:TOÑA BERTRAND at 0806 PATIENT NAME: ODIN ZENG 1 2023-06-06 05:01:00-00:00 [facility] ([facility] Cardiothoracic Surgery Prog REPORT#:[id number] REPORT STATUS: Signed DATE:06/06/23 TIME: 050 PATIENT: ODIN ZENG UNIT #: [id number] ROOM/BED: [place] [address] : 40 AGE: 83 SEX: M ATTEND: Ramo Sanchez MD ADM AUTHOR: Kerri Cassidy Physic * ALL edits or amendments must be made on the [employer]/computer document * General Post-op: day 3 Status post: 06/03/23 PROCEDURES: 1. Mitral valve replacement (29 Mitris valve). 2. Pulmonary vein isolation. 3. Isolation of left atrial appendage. Subjective Chief complaint: Resting comfortable. Denies compliants Review of Systems Constitutional: Denies: fatigue, fever. Skin: Denies: rash, swelling. Eyes: Denies: diplopia. ENT: Denies: hearing loss, mouth pain. Respiratory: Denies: REYES (dyspnea on exertion), SOB. Cardiovascular: Denies: chest pain, REYES (dyspnea on exertion). GI: Denies: constipation, diarrhea. Musculoskeletal: Denies: joint pain, joint swelling. Heme: Denies: bleeding, bruising. All systems rev neg: except as marked Objective General VS/I O Last Documented: Result Date Time Temp 98.8 06/05 2000 Pulse Ox 97 06/05 193 O2 Delivery Room air 06/05 1935 B/P 115/56 06/050 B/P Mean 80 06/05 1900 Pulse 79 06/05 1900 Resp 18 06/05 1900 FiO2 21 06/05 1424 O2 Flow Rate 2 06/04 08 24 hour I O ending at 0700: 06/06 0700 06/05 1900 Intake Total 720 Output Total 450 Balance 270 Intake, Oral 720 Number 1 Bowel Movements Output, Urine 450 PATIENT WEIGHT: Weight (lb): 180 Weight (oz): 8.94 Weight (kg): 81.900 Physical Exam General appearance: alert, awake, oriented Wound/incision: Location: Sternum clean and dry HEENT: mucosal membranes moist Neck: non-tender Cardiovascular: BP/pulses equal bilat. Respiratory: decreased breath sounds Abdomen: soft, non-tender Extremities: dry, moves all Musculoskeletal: full range of motion Neuro/CERTIFIED NURSES AIDE: alert, oriented X 3 Skin: dry Diagnosis, Assessment Plan Free Text A P: This is an 83-year-old gentleman with a past [facility] history of atrial fibrillation, status post failed ablation in the past, on Eliquis therapy, diabetes, hypothyroid, who was found to have sig nificant mitral valve regurgitation with a flail mitral valve leaflet. He is followed by his custom grinder Dr. Lobito hernandez. He has an outpatient left heart catheterization scheduled in the near future. He denies any history of stroke, denies any hist ory of chest pains. He is on Eliquis therapy for his atrial fibrilla tion. Patient admitted for mitral valve replacement fo r flail mitral valve leaflet. Assessment/plan 1. Mitral valve regurgitation 2. Atrial fibrillation Patient is admitted for mitr al valve replacement with PVI, left atrial appendage amputation. This was discussed with the patient by Dr. Duong siddiqi. The risk of the operation including STS score, r isk of , bleeding, heart attack, stroke, renal failur e, dialysis, prolonged ICU stay, tracheostomy, need for long-term rehabilitation etc. was discussed with the patient in depth. Patient's questions were ans wered and the patient agreed to proceed with surgery 06/03/23 1. Mitral valve replacement (29 Mitris valve). 2. Pulmonary vein isolation. 3. Isolation of left atrial appendage. 06/04/23 POD 1 AAOx3 Respiratory: On room air 94% Encourage IS, Deep Breathing, CXR reviewed monitor chest tube drainage Cardiac: Atrial paced, baseline appears to be [place] junctional GI: +gas, Continue Bowel regimen : Hilario in place UO: 800 Continue PT/OT DVT prophylaxis, SCDs in place Labs reveiwed-hemoglobin low we will give 1 unit of blood Patient seen and examined by Dr. Sanchez. Plan o f care discussed with multidisciplinary team 06/05/23 POD 2 S/P MVR, PVI, ALAA AAOx3 Respiratory: On room air 94% Encourage IS, Deep Breathing, CXR reviewed DC chest tube, Cardiac: A Paced @ 80 with V conduction, underlying rate 50-60, Obtain 12 lead GI: Continue Bowel regimen UO: 600 Continue PT/OT DVT prophylaxis, SCDs in place Labs reveiwed Patient seen and examined by Dr. Sanchez. Plan o f care discussed with multidisciplinary team Dc neck line. continue supportive care. 06/06/23 POD 3 S/P MVR, PVI, ALAA AAOx3 Respiratory: On room air 94% Encourage IS, Deep Breathing, CXR reviewed Cardiac: A Paced @ 80 with u nderlying bradycardia, 40s, beta-raul on hold we will consult EP. GI: Continue Bowel regimen UO: 1650 Continue PT/OT DVT prophylaxis, SCDs in place Labs reveiwed Patient seen and examined by Dr. Sanchez. Plan o f care discussed with multidisciplinary team Consultants: anesthesiology, cardiology, cardiov ascular surgery, critical/ paper testing supervisor, hospitalist at 0956 at 1642 RPT #:[id number] END OF REPORT 2023-06-05 09:17:00-00:00 [facility] Adult General Consultation REPORT#:[id number] REPORT STATUS: Signed DATE:06/05/23 TIME: 916 PATIENT: ODIN ZENG UNIT #: [id number] ROOM/BED: [place] [address] : 40 AGE: 83 SEX: M ATTEND: Ramo Sanchez MD ADM AUTHOR: Shane Willoughby BACK HOE OPERATOR * ALL edits or amendments must be made on the [employer]/computer document * History of Present Illness Requesting Clinician: Dr. Sanchez Reason for consult: medical management Chief complaint: CP PCP: PCP: Mitesh Muhammad MD HPI: This is an 83-year-old gentleman with a past [facility] history of atrial fibrillation, status post failed ablation in the past, on Eliquis therapy, diabetes, hypothyroid, who was found to have sig nificant mitral valve regurgitation with a flail mitral valve leaflet. He had a Mitral valve replacement, pulmonary vein isolation and Isolation of left atrial appendage. we were consulted for the medic al management. He is on RA, his breathing is stable. History - Adult longitudinal Additional medical history: 1. Atrial fibrillation on Eliquis 2. Hypothyroidism 3. Diabetes mellitus Additional surgical history: 1. afib ablation Additional family history: non contributory Alcohol use: Denies EtOH use Drug use: Denies recreational drugs Smoking status for patients 13 years old or olde r: Former Smoker Packs per day: 3 Years smoked: 18 Pack years: 54 Medications: Home Medications: Medication Dose/Rte/Freq Days Qty Entered Last Max Daily Dose Reviewed POTASSIUM CHLORIDE ER 8 MEQ PO DAILY 05/17/23 0 06/03/23 (MICRO-K) 1233 1120 Strength: 8 MEQ CAP.ER METOPROLOL TARTRATE 50 MG PO BID 05/17/2305/18 (LOPRESSOR) 1234 1120 Strength: 50 MG TAB FUROSEMIDE (LASIX) 40 MG PO DAILY 05/17/23 Strength: 40 MG TAB 1235 1120 LEVOTHYROXINE 75 MCG PO DAILY 05/17/23 06/03/23 (SYNTHROID) 1235 1120 Strength: 75 MCG TAB TAMSULOSIN ER (FLOMAX) 0.4 MG PO DAILY 05/17/23 06/03/23 Strength: 0.4 MG CAP.SR.24H 1241 1120 APIXABAN (ELIQUIS) 5 MG PO DAILY 05/17/2306/03 Strength: 5 MG TAB 1234 1120 metFORMIN (GLUCOPHAGE) 500 MG PO DAILY 05/17/23 06/03/23 Strength: 500 MG TAB 1235 1120 Current Hospital Medications: Anti-Infective Agents Sig/Stephanie Start time Last Medication Dose Route Stop Time Status Admin Cefazolin Sodium 3 GM ONCE ONE 06/03 1530 DC (KEFZOL OR ANCEF) IV 06/04 1129 1711 Sodium Chloride 250 ML (SODIUM CHLORIDE 0.9%) Autonomic Drugs Sig/Stephanie Start time Last Medication Dose Route Stop Time Status Admin Ipratropium [place] 500 MCG RTQ2H PRN PRN 06/06 1521 AC (ATROVENT) INH 07/06 1520 Tamsulosin HCl 0.4 MG PC BK 06/04 0900 AC 06/04 (Flomax 0.4 mg) PO 07/04 0859 0920 Ipratropium [place] 500 MCG RTQ4H 06/03 1600 AC 06/05 (ATROVENT) INH 06/06 1521 0735 Epinephrine 4 MG ASDIR 06/03 1530 AC (ADRENALIN CHLORIDE) IV 07/03 1529 Dextrose/Water 246 ML (DEXTROSE 5% WATER) Norepinephrine 250 ML TITRATE 06/03 1530 AC Bitartrate IV 07/03 1529 (NOREPINEPHRINE 8 MG/ NS 250 ML) Blood Derivatives Sig/Stephanie Start time Last Medication Dose Route Stop Time Status Admin Albumin Human 25 GM ASDIR PRN 06/03 1530 DC (ALBUMINAR 25%) IV 06/04 1521 1812 Blood Formation,Coagulation Sig/Stephanie Start time Last Medication Dose Route Stop Time Status Admin Ferrous Sulfate 325 MG DAILY 06/06 0900 AC (FERROUS SULFATE) PO 07/06 0859 Cardiovascular Drugs Sig/Stephanie Start time Last Medication Dose Route Stop Time Status Admin Atorvastatin Calcium 40 MG 2100 06/04 2100 AC 0 06/04 (LIPITOR) PO 07/04 2059 1950 Amiodarone HCl 200 MG TID 06/03 2100 AC 06/04 (CORDARONE) PO 07/03 2059 195 Metoprolol Tartrate 12.5 MG Q12HR 06/03 2100 DA (LOPRESSOR) PO 07/03 205 Nitroglycerin/ 250 ML ASDIR 06/03 1530 AC Dextrose IV 07/03 1529 (NITROGLYCERIN 50,000MCG/D5W 250ML) Lidocaine HCl 2 ML PREOP ONCALL 05/31 1615 AC (LIDOCAINE HCL/PF) LOCAL 06/30 235 Lidocaine HCl 2 ML PREOP ONCALL 05/31 1615 AC (LIDOCAINE HCL/PF) LOCAL 06/30 2359 Central Nervous System Agents Sig/Stephanie Start time Last Medication Dose Route Stop Time Status Admin Aspirin 81 MG DAILY 06/03 2121 AC 06/04 (ASPIRIN) PO 07/03 2120 0913 Gabapentin 200 MG BID 06/03 2100 AC 06/04 (NEURONTIN) PO 06/08 0901 1951 Acetaminophen 650 MG Q4H PRN PRN 06/03 1530 AC 06/05 (TYLENOL) PO 07/03 1529 0526 Acetaminophen 650 MG Q4H PRN PRN 06/03 1530 AC (TYLENOL) RECTAL 07/03 1529 Magnesium Sulfate 100 ML ASDIR PRN 06/03 1530 A C (MAGNESIUM SULFATE IV 07/03 1529 4GM/SWFI 100ML) Magnesium Sulfate 50 ML ASDIR PRN 06/03 1530 A C (MAGNESIUM SULFATE IV 07/03 1529 2GM/SWFI 50ML) Magnesium Sulfate/ 100 ML ASDIR PRN 06/03 1530 AC 06/05 Dextrose IV 07/03 1529 0526 (MAGNESIUM SULFATE 1GM/D5W 100ML) Oxycodone HCl 5 MG Q4H PRN PRN 06/03 1530 AC (ROXICODONE) PO 06/08 1529 1401 Oxycodone HCl 10 MG Q4H PRN PRN 06/03 1530 AC (ROXICODONE) PO 06/08 1529 Electrolytic, Caloric, And Jagdish Sig/Stephanie Start time Last Medication Dose Route Stop Time Status Admin Calcium Gluconate 50 ML ONCE ONE 06/04 1130 DC 06/04 (Calcium Gluconate 1 IV 06/04 1139 1249 GM/NS 50 mL (B2)) Calcium Chloride 1 GM ASDIR PRN 06/03 1530 AC (CALCIUM CHLORIDE) IV 07/03 1529 Dextrose/Water 125 ML ASDIR PRN 06/03 1530 CKD (DEXTROSE 10% IN IV 07/03 1529 WATER) Dextrose/Water 250 ML ASDIR PRN 06/03 1530 CKD (DEXTROSE 10% IN IV 07/03 1529 WATER) Potassium Chloride 100 ML ASDIR PRN 06/03 1530 AC 06/03 (KCL 20MEQ/SWFI IV 07/03 1529 2258 100ML) Sodium Bicarbonate 50 MEQ ASDIR PRN 06/03 1530 AC 06/03 (SODIUM BICARBONATE) IV 07/03 1529 1731 Sodium Chloride 1,000 ML .Q20H 06/03 1530 DC (SODIUM CHLORIDE IV 07/03 1529 0.9%) Sodium Chloride 250 ML Q24H 06/03 1530 DC (SODIUM CHLORIDE IV 07/03 1529 0.9%) Sodium Chloride 20 ML ASDIR 06/03 1145 AC (SODIUM CHLORIDE) IV 07/03 1144 Lactated Ringer's 1,000 ML PREOP ONCALL 05/31 1 615 AC (LACTATED RINGERS) IV 06/30 2359 Sodium Chloride 500 ML PREOP ONCALL 05/31 1615 AC (SODIUM CHLORIDE IV 06/30 2359 0.9%) Sodium Chloride 500 ML PREOP ONCALL 05/31 1615 AC (SODIUM CHLORIDE IV 06/30 2359 0.9%) Sodium Chloride 1,000 ML PREOP ONCALL 05/31 16 15 AC (SODIUM CHLORIDE IV 06/30 2359 0.9%) Sodium Chloride 5 ML ASDIR PRN 05/31 1615 AC (SODIUM CHLORIDE) IV 06/30 1614 Sodium Chloride 10 ML ASDIR PRN 05/31 1615 AC (SODIUM CHLORIDE) IV 06/30 1614 Sodium Chloride 250 ML ASDIR PRN 05/31 1615 AC (SODIUM CHLORIDE IV 06/30 1614 0.9%) Gastrointestinal Drugs Sig/Stephanie Start time Last Medication Dose Route Stop Time Status Admin Bisacodyl 10 MG ONCE PRN 06/05 1200 AC (DULCOLAX) RECTAL 07/05 1159 Magnesium Hydroxide 30 ML ONCE PRN 06/05 1200 A C (MILK OF MAGNESIA) PO Polyethylene Glycol 17 GM DAILY 06/04 0900 AC 0 06/04 (MIRALAX) PO 07/04 0859 09 Docusate Sodium 100 MG BID 06/03 2100 AC 06/04 (COLACE) PO 07/03 Sennosides 17.2 MG BEDTIME 06/03 2100 AC 06/04 (Senna Lax 8.6 MG PO 07/03 TABLET) Ondansetron HCl 4 MG Q6H PRN PRN 06/03 1530 AC (ZOFRAN) IV 07/03 1529 Hormones And Synthetic Substit Sig/Stephanie Start time Last Medication Dose Route Stop Time Status Admin Insulin Human Lispro 0 AC HS 06/04 1130 AC 05/18 8 (HUMALOG) SUBQ 07/04 1129 1803 Levothyroxine Sodium 75 MCG DAILY 0600 06/04 0 616 AC 06/05 (Synthroid) PO 07/04 0615 0526 Glucagon 1 MG ASDIR PRN 06/03 1530 AC (GLUCAGON) IM 07/03 1529 Insulin Human Regular 100 UNIT ASDIR 06/03 1530 CKD (HumuLIN R) IV 07/03 1529 Sodium Chloride 99 ML (SODIUM CHLORIDE 0.9%) Insulin Human Lispro 0 Q4H PRN PRN 06/03 1400 D C (HUMALOG) SUBQ 06/04 1359 Skin And Mucous Membrane Agent Sig/Stephanie Start time Last Medication Dose Route Stop Time Status Admin Mupirocin 1 APPLIC BID 06/03 2100 AC 06/04 (BACTROBAN 2% 22 GM NASAL 06/08 OINTMENT) Vitamins Sig/Stephanie Start time Last Medication Dose Route Stop Time Status Admin Cyanocobalamin 500 MCG DAILY 06/06 0900 AC (Vitamin B-12 500 PO 07/06 0859 mcg tab) Allergies: Coded Allergies: No Known Allergies (05/17/23) Ambulatory status: Independent Review of Systems Constitutional: fatigue, generalized weakness. Allergy/Immun: Denies: anaphylaxis, hives, itching. Respiratory: Denies: REYES (dyspnea on exertion), non productiv e cough, pleurisy, productive cough (sputum), SOB. Cardiovascular: Denies: chest pain, REYES (dyspnea on exer tion), edema, orthopnea, palpitations. GI: Denies: abdominal pain, constipation, diarrhea, hiatal hernia. : Denies: flank pain, hematuria, penile discharge, testicular swelling. Musculoskeletal: Denies: extremity pain, joint pain. Heme: Denies: bleeding, bruising. Neuro: Denies: bowel dysfunction, dizziness, ga it problem, headache, seizure, slurred speech, syncope. Objective VS/I O: Last Documented: Result Date Time Pulse Ox 99 06/05 0700 B/P 119/56 06/05 0700 B/P Mean 81 06/05 0700 Temp 38.1 06/05 0700 Pulse 79 06/05 0700 Resp 27 06/05 0700 O2 Delivery Room air 06/04 2024 FiO2 21 06/04 1542 O2 Flow Rate 2 06/04 0800 24 hour I O ending at 0700: 06/05 0700 06/04 1900 Intake Total 340.00 1996.10 Output Total 700 795 Balance -360.00 1201.10 Intake, IV 100.00 446.10 Intake, Oral 240 1200 Intake, 350 Packed Cells Number 1 Bowel Movements Output, Chest 50 170 Tube Drainage Output, Urine 650 625 Patient 81.9 kg 76.204 kg Weight Weight Standing scale Measurement Method PATIENT WEIGHT: Weight (lb): 180 Weight (oz): 8.94 Weight (kg): 81.900 General appearance: alert, awake, oriented Head/Eyes: atraumatic, normocephalic, PERRLA Neck: full range of motion, no JVD, no lymphaden opathy Cardiovascular: normal capillary refill, regular rate rhythm, normal heart sounds Respiratory: shortness of breath, aerati ng well, symmetric expansion, clear to auscultation Abdomen: soft, non-tender Genitourinary: no bladder distension Extremities: moves all Musculoskeletal: no CVA tenderness, no muscle sp asm Neuro/CERTIFIED NURSES AIDE: alert, oriented X 3 Results Findings/Data: Laboratory Tests: 06/05 06/05 06/05 06/05 0734 0409 0303 0253 Blood Gas Puncture Site Art Line O2 Saturation (90 - 100 %) 91.4 ABG pH (7.35 - 7.45) 7.464 H ABG pCO2 (35.0 - 45 mmHg) 33.6 L ABG pO2 (80 - 100.0 mmHg) 61.6 L ABG HCO3 (22.0 - 26.0 MMOL/L) 23.9 ABG Total CO2 24.8 ABG Base Excess (-4.0 - 4.0 MMOL/L) 0.4 ABG Hematocrit (37.5 - 50.7 %) 26 L ABG Hemoglobin (12.5 - 16.9 G/DL) 8.9 L Salas Test N/A Sodium (134 - 147 mmol/L) 134 Potassium (3.4 - 5.0 mmol/L) 3.9 Chloride (100 - 108 mmol/L) 100 Ionized Calcium (1.12 - 1.32 MMOL/L) 1.15 Lactic Acid (0.9 - 1.7 mmol/l) 1.1 Temperature (F) 100.8 O2 Delivery Device room air Chemistry Sodium (134 - 147 mEq/L) 134 Potassium (3.4 - 5.0 mEq/L) 3.8 Chloride (100 - 108 mEq/L) 104 Carbon Dioxide (21 - 33 mEq/l) 25 Anion Gap (0 - 20) 9 BUN (7 - 18 mg/dL) 13 Creatinine (0.6 - 1.3 mg/dL) 0.8 POC Creatinine (0.8 - 1.3 mg/dL) 0.8 Glomerular Filtr Rate (70 - 80) 87.8 H Glucose (70 - 110 mg/dL) 208 H POC Glucose (70 - 110 MG/DL) 203 H POC Glucose (mg/dL) (70 - 110 MG/DL) 203 H Calcium (8.0 - 10.5 mg/dL) 7.9 L Magnesium (1.80 - 2.40 mg/dL) 2.18 Total Bilirubin (0.0 - 1.0 mg/dL) 1.00 Direct Bilirubin (0.0 - 0.30 MG/DL) 0.50 H Indirect Bilirubin (MG/DL) 0.50 AST (15 - 37 IUnit/L) 64 H ALT (30 - 65 IUnit/L) 14 L Total Alk Phosphatase (20 - 125 IUnit/L) 30 Total Protein (6.4 - 8.2 g/dL) 5.4 L Albumin (3.4 - 5.0 g/dL) 3.50 Coagulation Hep-Terrie Thrombocytopen (()) NEGATIVE Hematology WBC (4.5 - 11.0 x10 3/uL) 14.0 H RBC (4.00 - 5.60 x10 6/uL) 2.91 L Hgb (12.5 - 16.9 g/dL) 8.9 L Hct (37.5 - 50.7 %) 26.0 L MCV (81.0 - 99.0 fL) 89.3 MCH (27.0 - 33.0 pg) 30.6 MCHC (33.0 - 37.0 g/dL) 34.2 RDW (11.5 - 14.5 %) 14.9 H Plt Count (150 - 400 x10 3/uL) 59 L MPV (7.0 - 9.0 fL) 12.0 H Neut % (Auto) (56.0 - 77.0 %) 79.8 H Lymph % (Auto) (14.0 - 32.0 %) 10.1 L [place] % (Auto) (4.8 - 9.0 %) 9.2 H Eos % (Auto) (0.3 - 3.7 %) 0.2 L Baso % (Auto) (0.0 - 2.0 %) 0.1 Neut # (Auto) (2.0 - 7.6 x10 3/uL) 11.14 H Lymph # (Auto) (1.0 - 3.8 x10 3/uL) 1.41 [place] # (Auto) (0.1 - 0.8 x10 3/uL) 1.28 H Eos # (Auto) (0.0 - 0.2 x10 3/uL) 0.03 Baso # (Auto) (0.0 - 0.2 x10 3/uL) 0.02 Abs Immat Gran (auto) (0.00 - 0.03 0.09 H x10 3/uL) Add Manual Diff NO Immature Gran % (0.0 - 2.0 %) 0.6 Nucleated RBC % (0 - 0 %) 0.0 Nucleated RBCs # (Man) (0.0 - 0.1 0.00 x10 3/uL) 06/04 1817 1702 1237 Chemistry Sodium (134 - 147 mEq/L) 136 Potassium (3.4 - 5.0 mEq/L) 4.3 Chloride (100 - 108 mEq/L) 105 Carbon Dioxide (21 - 33 mEq/l) 24 Anion Gap (0 - 20) 11 BUN (7 - 18 mg/dL) 16 Creatinine (0.6 - 1.3 mg/dL) 0.9 Glomerular Filtr Rate (70 - 80) 84.7 H Glucose (70 - 110 mg/dL) 201 H POC Glucose (70 - 110 MG/DL) 188 H 200 H 163 H Calcium (8.0 - 10.5 mg/dL) 7.9 L Hematology WBC (4.5 - 11.0 x10 3/uL) 13.7 H RBC (4.00 - 5.60 x10 6/uL) 2.97 L Hgb (12.5 - 16.9 g/dL) 8.7 L Hct (37.5 - 50.7 %) 26.1 L MCV (81.0 - 99.0 fL) 87.9 MCH (27.0 - 33.0 pg) 29.3 MCHC (33.0 - 37.0 g/dL) 33.3 RDW (11.5 - 14.5 %) 14.6 H Plt Count (150 - 400 x10 3/uL) 67 L MPV (7.0 - 9.0 fL) 11.8 H Neut % (Auto) (56.0 - 77.0 %) 78.4 H Lymph % (Auto) (14.0 - 32.0 %) 10.7 L [place] % (Auto) (4.8 - 9.0 %) 10.0 H Eos % (Auto) (0.3 - 3.7 %) 0.1 L Baso % (Auto) (0.0 - 2.0 %) 0.1 Neut # (Auto) (2.0 - 7.6 x10 3/uL) 10.78 H Lymph # (Auto) (1.0 - 3.8 x10 3/uL) 1.47 [place] # (Auto) (0.1 - 0.8 x10 3/uL) 1.37 H Eos # (Auto) (0.0 - 0.2 x10 3/uL) 0.01 Baso # (Auto) (0.0 - 0.2 x10 3/uL) 0.01 Abs Immat Gran (auto) (0.00 - 0.03 x10 3/uL) 0. 09 H Add Manual Diff NO Immature Gran % (0.0 - 2.0 %) 0.7 Nucleated RBC % (0 - 0 %) 0.0 Nucleated RBCs # (Man) (0.0 - 0.1 x10 3/uL) 0.0 0 Results: labs reviewed, vital signs reviewed, vi mercedes signs stable, x-ray personally reviewed, current med profile rev'd Treatment Prophylaxis Treatment Prophylaxis Oxygen: nasal cannula Diagnosis, Assessment Plan Consultants: anesthesiology, cardiology, cardiov ascular surgery, critical/ paper testing supervisor, hospitalist Plan discussed with: patient, admitting physicia n, consultants, nurse Code Status/Resusc. Discussion Code status: full code Free Text DxA P Notes Free Text DxA P Notes: Assessment and Plan: - Mitral regurgitation/Paroxysmal atrial fibrill s/p Mitral valve replacement and Pulmonary vein isolation, Isolation of left atrial appendage. - CP and SOB due to MR. - HX of atrial fibrillation, status post failed ablation in the past, on Eliquis therapy, diabetes, hypothyroid. Plan: CVICU. Monitor Respiratory status, breathing tx, o2 sup port. Monitor chest tube placement. Continue BB and Amiodarone, Lipitor. Pain meds. Antiemetics. Follow labs and replace as needed. SCDs for dVT ppx. Continue Monitor. Electronically Signed by Shane Willoughby NP on at 0924 RPT #:[id number] END OF REPORT 2023-06-05 07:46:00-00:00 [facility] Cardiology Progress Note REPORT#:[id number] REPORT STATUS: Signed DATE:06/05/23 TIME: 0746 PATIENT: ODNI ZENG UNIT #: [id number] ROOM/BED: [place] [address] : 40 AGE: 83 SEX: M ATTEND: Ramo Sanchez MD ADM AUTHOR: Kathe Bradshaw GIFT WRAPPER * ALL edits or amendments must be made on the [employer]/computer document * Kathe Bradshaw 06/05/23 0746: Subjective Patient reports: No: complaints. Objective General VS/I O: 24 hour I O ending at 0700: 06/05 0700 06/04 1900 Intake Total 340.00 1996.10 Output Total 700 795 Balance -360.00 1201.10 Intake, IV 100.00 446.10 Intake, Oral 240 1200 Intake, 350 Packed Cells Number 1 Bowel Movements Output, Chest 50 170 Tube Drainage Output, Urine 650 625 Patient 81.9 kg 76.204 kg Weight Weight Standing scale Measurement Method Vital Signs: Date Time Temp Pulse Resp B/P B/P Pulse O2 O2 F low FiO2 Mean Ox Delivery Rate 06/05 0700 38.1 79 27 119/56 81 99 07/ 0600 38.3 80 13 116/63 83 98 07/19 0530 38.3 79 23 100 07/19 0513 38.3 79 22 159/70 100 100 07/19 0508 79 33 93/50 65 07/19 0505 79 23 111/53 77 07/19 0500 79 33 119/59 85 98 07/19 0415 38.3 80 21 -10/-11 -11 98 07/19 0400 130/63 90 07/19 0400 38.3 80 22 153/45 71 99 07/19 0345 38.3 80 25 153/44 68 97 07/19 0330 38.3 80 19 152/43 67 97 07/19 0315 38.3 80 22 161/45 71 97 07/19 0300 124/65 87 07/19 0300 38.2 80 25 150/43 66 97 07/19 0245 38.2 80 15 155/44 67 97 07/19 0230 38.3 80 13 156/43 67 96 07/19 0215 38.3 80 15 154/44 67 96 07/19 0200 123/58 84 07/19 0200 38.2 80 20 153/44 67 95 07/19 0145 38.3 80 17 157/44 68 96 07/19 0130 38.4 80 31 161/46 71 96 07/19 0115 38.4 80 23 158/45 70 96 07/19 0100 134/60 87 07/19 0100 38.4 80 9 160/46 71 97 07/19 0045 38.3 80 24 147/45 69 100 07/19 0030 38.3 80 24 154/45 68 95 07/19 0015 38.2 80 19 156/46 69 95 07/19 0000 120/57 81 07/19 0000 38.2 80 17 155/45 69 96 07/18 2345 38.1 80 24 153/45 67 95 07/18 2330 38.1 80 23 153/44 66 95 07/18 2315 38.1 80 22 157/47 70 96 07/18 2300 116/58 82 07/18 2300 38.0 80 20 154/45 68 96 07/18 2245 38.0 80 14 147/44 66 96 07/18 2230 37.9 80 22 150/45 67 96 07/18 2215 37.9 80 18 149/45 67 96 07/18 2200 110/58 82 07/18 2200 37.8 80 19 148/46 67 96 07/18 2145 37.8 80 14 147/46 67 97 07/18 2130 37.8 80 13 146/46 68 97 07/18 2115 37.9 80 17 144/46 66 97 07/18 2100 108/55 75 07/18 2100 37.9 80 21 137/43 63 98 07/18 2045 37.9 80 9 149/48 71 99 07/18 2030 37.9 80 18 113/44 63 100 07/18 4 100 Room air 07/18 2014 37.9 80 15 155/48 70 100 07/18 1999 120/58 82 07/18 2000 38.0 80 15 161/49 73 99 07/18 1945 38.0 80 17 138/45 67 87 07/18 1930 38.0 80 12 161/49 73 07/18 1915 38.1 80 21 133/44 64 07/18 1900 103/68 79 07/18 1900 38.1 80 18 143/45 65 95 07/18 1815 38.3 80 14 144/46 67 95 07/18 1800 38.3 80 148/45 68 94 07/18 1745 38.3 80 153/47 71 95 07/18 1730 38.3 80 12 151/47 70 95 07/18 1715 38.3 80 18 143/49 71 95 07/18 1700 147/50 73 07/18 1700 38.3 80 17 127/59 85 95 07/18 1615 16 293/293 293 94 07/18 1600 131/46 65 07/18 1600 38.3 80 23 111/58 80 92 07/18 1545 38.3 80 22 130/46 65 92 07/18 1542 93 Room air 21 07/18 1530 38.3 80 23 139/48 68 94 07/18 1515 38.3 80 18 131/46 65 92 07/18 1500 133/47 66 07/18 1500 38.3 80 109/58 77 92 07/18 1430 38.2 80 23 141/48 69 95 07/18 1415 38.1 80 22 151/51 74 96 07/18 1400 38.1 80 15 149/51 73 97 07/18 1345 38.1 80 18 139/47 67 95 07/18 1330 38.2 80 19 123/43 59 78 07/18 1315 38.2 80 18 124/44 62 94 07/18 1300 38.2 80 12 100/56 73 96 07/18 1245 38.2 79 23 122/42 58 96 07/18 1230 38.1 79 15 119/40 56 94 07/18 1222 96 Room air 21 07/18 1215 38.1 79 13 165/46 70 95 07/18 1200 38.1 79 17 122/60 86 95 07/18 1145 38.1 79 12 158/45 67 95 07/18 1130 38.1 79 20 149/42 63 95 07/18 1115 38.0 79 24 148/42 62 95 07/18 1045 38.0 79 18 155/46 68 93 07/18 1030 37.9 79 21 160/48 71 92 07/18 1016 37.4 79 16 112/57 80 97 07/18 1015 37.1 79 23 94 07/18 1000 37.9 79 18 108/59 79 95 07/18 0945 38.0 79 8 145/42 62 96 07/18 0930 38.0 79 16 129/41 59 96 07/18 0915 38.0 55 26 100/33 46 95 07/18 0900 38.0 80 12 105/57 78 97 06/04 0849 94 Room air 21 06/04 0845 38.0 80 12 109/58 78 95 06/04 0830 38.0 80 13 103/56 74 100 06/04 0815 38.0 80 23 92/53 67 98 06/04 0800 Nasal 2 cannula 06/04 0800 38.1 80 16 91/37 51 84 PATIENT WEIGHT: Weight (lb): 180 Weight (oz): 8.94 Weight (kg): 81.900 Medications: Active Meds + DC'd Last 24 Hrs Ipratropium [place] (ATROVENT) 500 MCG RTQ2H PRN PRN INH Cyanocobalamin (Vitamin B-12 500 mcg tab) 500 MC G DAILY PO Ferrous Sulfate (FERROUS SULFATE) 325 MG DAILY P O Bisacodyl (DULCOLAX) 10 MG ONCE PRN RECTAL Magnesium Hydroxide (MILK OF MAGNESIA) 30 ML ONC E PRN PO Atorvastatin Calcium (LIPITOR) 40 MG 2100 PO Calcium Gluconate (Calcium Gluconate 1 GM/NS 50 mL (B2)) 50 ML ONCE ONE IV (DC) Insulin Human Lispro (HUMALOG) 0 AC HS SUBQ Polyethylene Glycol (MIRALAX) 17 GM DAILY PO Tamsulosin HCl (Flomax 0.4 mg) 0.4 MG PC BK PO Levothyroxine Sodium (Synthroid) 75 MCG DAILY 06 00 PO Aspirin (ASPIRIN) 81 MG DAILY PO Amiodarone HCl (CORDARONE) 200 MG TID PO (DA) Docusate Sodium (COLACE) 100 MG BID PO Gabapentin (NEURONTIN) 200 MG BID PO Metoprolol Tartrate (LOPRESSOR) 12.5 MG Q12HR PO (DA) Mupirocin (BACTROBAN 2% 22 GM OINTMENT) 1 APPLIC BID NASAL Sennosides (Senna Lax 8.6 MG TABLET) 17.2 MG BED TIME PO Ipratropium [place] (ATROVENT) 500 MCG RTQ4H INH Acetaminophen (TYLENOL) 650 MG Q4H PRN PRN PO Acetaminophen (TYLENOL) 650 MG Q4H PRN PRN RECTA L Albumin Human (ALBUMINAR 25%) 25 GM ASDIR PRN IV (DC) Calcium Chloride (CALCIUM CHLORIDE) 1 GM ASDIR P RN IV Cefazolin Sodium (KEFZOL OR ANCEF) 3 GM ONCE ONE IV (DC) Sodium Chloride (SODIUM CHLORIDE 0.9%) 250 ML Dextrose/Water (DEXTROSE 10% IN WATER) 125 ML DIR PRN IV (CKD) Dextrose/Water (DEXTROSE 10% IN WATER) 250 ML DIR PRN IV (CKD) Epinephrine (ADRENALIN CHLORIDE) 4 MG ASDIR IV Dextrose/Water (DEXTROSE 5% WATER) 246 ML Glucagon (GLUCAGON) 1 MG ASDIR PRN IM Insulin Human Regular (HumuLIN R) 100 UNIT ASDIR IV (CKD) Sodium Chloride (SODIUM CHLORIDE 0.9%) 99 ML Magnesium Sulfate (MAGNESIUM SULFATE 4GM/SWFI 10 0ML) 100 ML ASDIR PRN IV Magnesium Sulfate (MAGNESIUM SULFATE 2GM/SWFI 50 ML) 50 ML ASDIR PRN IV Magnesium Sulfate/Dextrose (MAGNESIUM SULFATE 1G M/D5W 100ML) 100 ML ASDIR PRN IV Nitroglycerin/Dextrose (NITROGLYCERIN 50,000MCG/ D5W 250ML) 250 ML ASDIR IV Norepinephrine Bitartrate (NOREPINEPHRINE 8 MG/N S 250 ML) 250 ML TITRATE IV Ondansetron HCl (ZOFRAN) 4 MG Q6H PRN PRN IV Oxycodone HCl (ROXICODONE) 5 MG Q4H PRN PRN PO Oxycodone HCl (ROXICODONE) 10 MG Q4H PRN PRN PO Potassium Chloride (KCL 20MEQ/SWFI 100ML) 100 ML ASDIR PRN IV Sodium Bicarbonate (SODIUM BICARBONATE) 50 MEQ A SDIR PRN IV Sodium Chloride (SODIUM CHLORIDE 0.9%) 1,000 ML .Q20H IV (DC) Sodium Chloride (SODIUM CHLORIDE 0.9%) 250 ML Q2 4H IV (DC) Insulin Human Lispro (HUMALOG) 0 Q4H PRN PRN SUB Q (DC) Sodium Chloride (SODIUM CHLORIDE) 20 ML ASDIR IV Lactated Ringer's (LACTATED RINGERS) 1,000 ML SD EOP ONCALL IV Lidocaine HCl (LIDOCAINE HCL/PF) 2 ML PREOP ONCA LL LOCAL Lidocaine HCl (LIDOCAINE HCL/PF) 2 ML PREOP ONCA LL LOCAL Sodium Chloride (SODIUM CHLORIDE 0.9%) 500 ML SD EOP ONCALL IV Sodium Chloride (SODIUM CHLORIDE 0.9%) 500 ML SD EOP ONCALL IV Sodium Chloride (SODIUM CHLORIDE 0.9%) 1,000 ML PREOP ONCALL IV Sodium Chloride (SODIUM CHLORIDE) 5 ML ASDIR PRN IV Sodium Chloride (SODIUM CHLORIDE) 10 ML ASDIR SD N IV Sodium Chloride (SODIUM CHLORIDE 0.9%) 250 ML DIR PRN IV Physical Exam General appearance: alert, awake Neck: no JVD Cardiovascular: CV assessment: regular rate and rhythm Respiratory: clear to auscultation, no distress Abdomen: soft, non-tender, normal bowel sounds, no distention Genitourinary: urinary catheter, urine Lower extremity: LE assessment: no calf tenderness, no edema Musculoskeletal: normal inspection Neuro/CERTIFIED NURSES AIDE: alert Skin: dry, intact Psychiatry: normal affect, normal mood Results Findings/Data: Laboratory Tests 06/05 0303 Blood Gas Puncture Site Art Line O2 Saturation (90 - 100 %) 91.4 ABG pH (7.35 - 7.45) 7.464 H ABG pCO2 (35.0 - 45 mmHg) 33.6 L ABG pO2 (80 - 100.0 mmHg) 61.6 L ABG HCO3 (22.0 - 26.0 MMOL/L) 23.9 ABG Total CO2 24.8 ABG Base Excess (-4.0 - 4.0 MMOL/L) 0.4 ABG Hematocrit (37.5 - 50.7 %) 26 L ABG Hemoglobin (12.5 - 16.9 G/DL) 8.9 L Salas Test N/A Sodium (134 - 147 mmol/L) 134 Potassium (3.4 - 5.0 mmol/L) 3.9 Chloride (100 - 108 mmol/L) 100 Ionized Calcium (1.12 - 1.32 MMOL/L) 1.15 Lactic Acid (0.9 - 1.7 mmol/l) 1.1 Temperature (F) 100.8 O2 Delivery Device room air Laboratory Tests 06/05 06/05 06/04 06/04 06/04 0303 0253 1942 1817 1702 Chemistry Sodium (134 - 147 mEq/L) 134 136 Potassium (3.4 - 5.0 mEq/L) 3.8 4.3 Chloride (100 - 108 mEq/L) 104 105 Carbon Dioxide (21 - 33 mEq/l) 25 24 Anion Gap (0 - 20) 9 11 BUN (7 - 18 mg/dL) 13 16 Creatinine (0.6 - 1.3 mg/dL) 0.8 0.9 POC Creatinine (0.8 - 1.3 mg/dL) 0.8 Glomerular Filtr Rate (70 - 80) 87.8 H 84.7 H Glucose (70 - 110 mg/dL) 208 H 201 H POC Glucose (70 - 110 MG/DL) 188 H 200 H POC Glucose (mg/dL) (70 - 110 MG/DL) 203 H Calcium (8.0 - 10.5 mg/dL) 7.9 L 7.9 L Magnesium (1.80 - 2.40 mg/dL) 2.18 Total Bilirubin (0.0 - 1.0 mg/dL) 1.00 Direct Bilirubin (0.0 - 0.30 MG/DL) 0.50 H Indirect Bilirubin (MG/DL) 0.50 AST (15 - 37 IUnit/L) 64 H ALT (30 - 65 IUnit/L) 14 L Total Alk Phosphatase (20 - 125 30 IUnit/L) Total Protein (6.4 - 8.2 g/dL) 5.4 L Albumin (3.4 - 5.0 g/dL) 3.50 06/04 06/04 06/04 1237 0902 0858 Chemistry POC Glucose (70 - 110 MG/DL) 163 H 151 H Lactic Acid (0.4 - 1.9 mmol/L) 4.6 *H Laboratory Tests 06/05 0409 Coagulation Hep-Terrie Thrombocytopen (()) NEGATIVE Laboratory Tests 06/05 06/04 0253 1817 Hematology WBC (4.5 - 11.0 x10 3/uL) 14.0 H 13.7 H RBC (4.00 - 5.60 x10 6/uL) 2.91 L 2.97 L Hgb (12.5 - 16.9 g/dL) 8.9 L 8.7 L Hct (37.5 - 50.7 %) 26.0 L 26.1 L MCV (81.0 - 99.0 fL) 89.3 87.9 MCH (27.0 - 33.0 pg) 30.6 29.3 MCHC (33.0 - 37.0 g/dL) 34.2 33.3 RDW (11.5 - 14.5 %) 14.9 H 14.6 H Plt Count (150 - 400 x10 3/uL) 59 L 67 L MPV (7.0 - 9.0 fL) 12.0 H 11.8 H Neut % (Auto) (56.0 - 77.0 %) 79.8 H 78.4 H Lymph % (Auto) (14.0 - 32.0 %) 10.1 L 10.7 L [place] % (Auto) (4.8 - 9.0 %) 9.2 H 10.0 H Eos % (Auto) (0.3 - 3.7 %) 0.2 L 0.1 L Baso % (Auto) (0.0 - 2.0 %) 0.1 0.1 Neut # (Auto) (2.0 - 7.6 x10 3/uL) 11.14 H 10.7 8 H Lymph # (Auto) (1.0 - 3.8 x10 3/uL) 1.41 1.47 [place] # (Auto) (0.1 - 0.8 x10 3/uL) 1.28 H 1.37 H Eos # (Auto) (0.0 - 0.2 x10 3/uL) 0.03 0.01 Baso # (Auto) (0.0 - 0.2 x10 3/uL) 0.02 0.01 Abs Immat Gran (auto) (0.00 - 0.03 x10 3/uL) 0. 09 H 0.09 H Add Manual Diff NO NO Immature Gran % (0.0 - 2.0 %) 0.6 0.7 Nucleated RBC % (0 - 0 %) 0.0 0.0 Nucleated RBCs # (Man) (0.0 - 0.1 x10 3/uL) 0.0 0 0.00 Laboratory Tests 06/05 0253 Chemistry Magnesium (1.80 - 2.40 mg/dL) 2.18 Radiology data: Recent Impressions: RADIOLOGY - XR CHEST 1 V 06/05 0636 Report Impression - Status: SIGNED Entered: 06/05/2023 0952 IMPRESSION: 1. Small left pleural effusion. 2. Moderate pulmonary edema versus infiltrates, pneumonia. 3. Mild enlarged cardiac silhouette. Impression By: [email or web address] - Scottie Bella M.D. Results: labs reviewed, vital signs reviewed, [facility] personally rev'd Telemetry Interpretation: a-paced Diagnosis, Assessment Plan Plan discussed with: patient, collaborating MD Free Text DxA P Notes Free Text DxA P Notes: Cardiology consultation s/p mitral valve replace ment on this 83 YO gentleman with PMHx of paroxysmal atri al fibrillation, DM, hypothyrodism who was found to have severe mitral valve prolapse . 1. Severe mitral valve prolapse s/p Mitral Valve Replacement * Overall doing well. Off pressors. Hemodynamica lly stable. * post-op care per CTS 2. Atrial fibrillation s/p PVI and ALAA * continue amiodarone, metoprolol MDM by Dr. Diggs. Molina Diggs 06/06/23 1657: Attestations Physician Attestation Agree w/findings plan: I have seen and examined the pt, I Agree with e findings and plan as documented by Kathe Bradshaw. 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 Patient is pos top day 2 after mitral valve replacement. Patient was 100% pacer depe ndent postoperatively. This morning he has been taken off of the pa cer and has intrinsic rhythm at 80. Blood pressures improved at 121/58 mmHg and patient is off of no repinephrine drip. Chest tube output was minimal at 10 mL and 40 mL re spectively overnight. Both chest tubes will be removed today. Patient will have central venous catheter removed as well. Beta-raul is on hold. Patient will cont inue on amiodarone. Hemoglobin is 8.9 g/dL this morning with a isabell l creatinine at 0.8 mg/dL. Urine output was 625 mL overnight. Patient has m ildly elevated blood glucose level and will be on sliding scale coverage moderate intensity before meals and at bedtime. Admission weight was 77 kg patient w eighs 82 kg today. He has not been diuresed yet. Blood gas this mornin g shows a pH of 7.46, PCO2 of 33 mmHg, PO2 of 61 mmHg and bicarbonate of 23 mmol with b ase excess 8.4. Oxygen saturations being monitored closely and stands at 98% now on room air. Patient had acute blood loss anemia and received packed red cell transfusion as of 2022. Patient is ambulating with physical therapy, tolerating oral diet, did not have bowel movement yet. Hilario catheter is retai dar. Patient was received in CVICU room #2202 on 06/03. He underwent mitral valve replacement. Patient was found to have sev ere MR with paroxysmal atrial fibrillation. He underwent mitral valve replacem ent with 29 Mitris along with isolation of left atrial appendage. Patient had prolapsed mitral valve along with myxomatous thickened anterior leaflet. He i s status post mitral valve replacement. Patient was low on intravas cular volume with a CVP measuring 6 to 7 cm. Received IV fluid bolus. Normal EF. At the end of the procedure there was no evidence of mitral regurgitation or paravalvular leak. Patient received 450 mL of Cell Saver, 1 L of IV fluids, no autol ogous transfusion was given. Patient received 25% albumin 1 infusion. Had 3 a nd mL of EBL and 900 mL of urine output. Upon transfer to the CVICU patient is on norepinephrine at 2 mcg, epinephrine at 2 and vasopre ssin at 0.04 units. Patient is currently on assist- control at 20 tidal volume 5 00 PEEP of 5 and 50% FiO2. Latest blood gas shows a pH of 7.35, pCO2 of 38 mmHg, pO2 of 235 mmHg and bicarbonate of 21 mmol with base excess at -4.3. Latest blood glucose 165 mg /dL, creatinine 0.72 mg/dL, hemoglobin 9.8 g/dL with hematocrit of 29%. Pota ssium is 3.6 and is being repleted with 20 mg of potassium chlorid e and ionized calcium is 1.15. Patient will receive 1 amp of sodium bicarbonate for mil d metabolic acidosis. Vital signs are stable with a hear t rate of 80 sinus rhythm, blood pressure is 126/74 mmHg, PA pressures 37/22 mmHg and respiratory ra te 24 with pulse ox of 100%. Odin Zeng is a 83-year-old gentleman with a [facility] medical history of atrial fibrillation, status post failed ablation in the past, on Eliquis therapy, diabetes, hypothyroid, who was found to have sig nificant mitral valve regurgitation with a flail mitral valve leaflet. He is followed by his custom grinder Dr. Zaidi. He denies any history of stroke, denies any history of chest pains. He is on Eliquis therapy for his at rial fibrillation. Patient admitted for mitral valve replacement for flail mitral valve leaflet. Patient underwent MVR on 06/03/2023. Surgery was uneventf ul. Patient is orally intubated and on mechanical ventilation. Patient was extubated in a timely fashion. Patient reports: No: back pain, diarrhea, fever, shortness of violet ath, vomiting. Nursing reports: No: agitated, confusion, diarrhea, fever. Review of Systems Constitutional: Denies: fatigue, fever. Skin: Denies: diaphoresis, ecchymosis. Allergy/Immun: Denies: anaphylaxis, hives. Eyes: Denies: redness, discharge. ENT: Denies: nose bleeding, throat swelling, tongue s welling. Respiratory: Denies: REYES (dyspnea on exertion), hemoptysis, S OB, wheezing. Cardiovascular: Denies: chest pain, REYES (dyspnea on exertion), e claudine. GI: Denies: hematemesis, hematochezia, melena, nause a, vomiting. : Denies: hematuria, nocturia. Heme: Denies: bleeding, bruising. Endocrine: Denies: polydipsia, polyphagia. Neuro: Denies: confusion, dizziness, seizure. Psych: Denies: confusion, delusional. Objective General VS/I O Last Documented: Result Date Time Pulse Ox 100 06/04 2024 O2 Delivery Room air 06/04 2024 B/P 144/46 06/04 1815 B/P Mean 67 06/04 1815 Temp 38.3 06/04 1815 Pulse 80 06/04 181 Resp 14 06/04 181 FiO2 21 06/04 1542 O2 Flow Rate 2 06/04 0800 24 hour I O ending at 0700: 06/05 0700 06/04 1900 Intake Total 340.00 1996.10 Output Total 700 795 Balance -360.00 1201.10 Intake, IV 100.00 446.10 Intake, Oral 240 1200 Intake, 350 Packed Cells Number 1 Bowel Movements Output, Chest 50 170 Tube Drainage Output, Urine 650 625 Patient 81.9 kg 76.204 kg Weight Weight Standing scale Measurement Method PATIENT WEIGHT: Weight (lb): 180 Weight (oz): 8.94 Weight (kg): 81.900 Medications: Active Meds + DC'd Last 24 Hrs Ipratropium [place] (ATROVENT) 500 MCG RTQ2H PRN PRN INH Cyanocobalamin (Vitamin B-12 500 mcg tab) 500 MC G DAILY PO Ferrous Sulfate (FERROUS SULFATE) 325 MG DAILY P O Bisacodyl (DULCOLAX) 10 MG ONCE PRN RECTAL Magnesium Hydroxide (MILK OF MAGNESIA) 30 ML ONC E PRN PO Atorvastatin Calcium (LIPITOR) 40 MG 2100 PO Calcium Gluconate (Calcium Gluconate 1 GM/NS 50 mL (B2)) 50 ML ONCE ONE IV (DC) Insulin Human Lispro (HUMALOG) 0 AC HS SUBQ Polyethylene Glycol (MIRALAX) 17 GM DAILY PO Tamsulosin HCl (Flomax 0.4 mg) 0.4 MG PC BK PO Levothyroxine Sodium (Synthroid) 75 MCG DAILY 06 00 PO Aspirin (ASPIRIN) 81 MG DAILY PO Amiodarone HCl (CORDARONE) 200 MG TID PO (DA) Docusate Sodium (COLACE) 100 MG BID PO Gabapentin (NEURONTIN) 200 MG BID PO Metoprolol Tartrate (LOPRESSOR) 12.5 MG Q12HR PO (DA) Mupirocin (BACTROBAN 2% 22 GM OINTMENT) 1 APPLIC BID NASAL Sennosides (Senna Lax 8.6 MG TABLET) 17.2 MG BED TIME PO Ipratropium [place] (ATROVENT) 500 MCG RTQ4H INH Acetaminophen (TYLENOL) 650 MG Q4H PRN PRN PO Acetaminophen (TYLENOL) 650 MG Q4H PRN PRN RECTA L Albumin Human (ALBUMINAR 25%) 25 GM ASDIR PRN IV (DC) Calcium Chloride (CALCIUM CHLORIDE) 1 GM ASDIR P RN IV Cefazolin Sodium (KEFZOL OR ANCEF) 3 GM ONCE ONE IV (DC) Sodium Chloride (SODIUM CHLORIDE 0.9%) 250 ML Dextrose/Water (DEXTROSE 10% IN WATER) 125 ML DIR PRN IV (CKD) Dextrose/Water (DEXTROSE 10% IN WATER) 250 ML DIR PRN IV (CKD) Epinephrine (ADRENALIN CHLORIDE) 4 MG ASDIR IV Dextrose/Water (DEXTROSE 5% WATER) 246 ML Glucagon (GLUCAGON) 1 MG ASDIR PRN IM Insulin Human Regular (HumuLIN R) 100 UNIT ASDIR IV (CKD) Sodium Chloride (SODIUM CHLORIDE 0.9%) 99 ML Magnesium Sulfate (MAGNESIUM SULFATE 4GM/SWFI 10 0ML) 100 ML ASDIR PRN IV Magnesium Sulfate (MAGNESIUM SULFATE 2GM/SWFI 50 ML) 50 ML ASDIR PRN IV Magnesium Sulfate/Dextrose (MAGNESIUM SULFATE 1G M/D5W 100ML) 100 ML ASDIR PRN IV Nitroglycerin/Dextrose (NITROGLYCERIN 50,000MCG/ D5W 250ML) 250 ML ASDIR IV Norepinephrine Bitartrate (NOREPINEPHRINE 8 MG/N S 250 ML) 250 ML TITRATE IV Ondansetron HCl (ZOFRAN) 4 MG Q6H PRN PRN IV Oxycodone HCl (ROXICODONE) 5 MG Q4H PRN PRN PO Oxycodone HCl (ROXICODONE) 10 MG Q4H PRN PRN PO Potassium Chloride (KCL 20MEQ/SWFI 100ML) 100 ML ASDIR PRN IV Sodium Bicarbonate (SODIUM BICARBONATE) 50 MEQ A SDIR PRN IV Sodium Chloride (SODIUM CHLORIDE 0.9%) 1,000 ML .Q20H IV (DC) Sodium Chloride (SODIUM CHLORIDE 0.9%) 250 ML Q2 4H IV (DC) Insulin Human Lispro (HUMALOG) 0 Q4H PRN PRN SUB Q (DC) Sodium Chloride (SODIUM CHLORIDE) 20 ML ASDIR IV Lactated Ringer's (LACTATED RINGERS) 1,000 ML SD EOP ONCALL IV Lidocaine HCl (LIDOCAINE HCL/PF) 2 ML PREOP ONCA LL LOCAL Lidocaine HCl (LIDOCAINE HCL/PF) 2 ML PREOP ONCA LL LOCAL Sodium Chloride (SODIUM CHLORIDE 0.9%) 500 ML SD EOP ONCALL IV Sodium Chloride (SODIUM CHLORIDE 0.9%) 500 ML SD EOP ONCALL IV Sodium Chloride (SODIUM CHLORIDE 0.9%) 1,000 ML PREOP ONCALL IV Sodium Chloride (SODIUM CHLORIDE) 5 ML ASDIR PRN IV Sodium Chloride (SODIUM CHLORIDE) 10 ML ASDIR SD N IV Sodium Chloride (SODIUM CHLORIDE 0.9%) 250 ML DIR PRN IV Post-op: day 2 Status post: MVR (mitral valve replacement) Physical Exam General appearance: alert, awake, oriented, no a cute distress, pleasant, conversational, mental status normal, no respira tory distress Head/eyes: atraumatic, EOMI, normocephalic, PERR L ENT: moist mucosal membranes, normal sinus Neck: non-tender, no JVD, no masses or swelling Cardiovascular: normal capillary refill, normal heart sounds, regular rate and rhythm Respiratory: aerating well, clear to auscultatio n, symmetric expansion, no distress Abdomen: soft, non-tender, no distention, no gua rding, no rebound Genitourinary: no flank pain Extremities: no clubbing, no cyanosis, no edema Neuro/CERTIFIED NURSES AIDE: alert, oriented X 3, CNII-XII intact, normal speech, reflexes equal bilat, no motor deficits, no sensory deficits Skin: dry, normal color, normal temperature, no rash Psychiatry: normal affect, n ormal judgment/insight, normal mood, not homicidal, not suicidal, no hallucinations Results Findings/data: Laboratory Tests 06/05 0303 Blood Gas Puncture Site Art Line O2 Saturation (90 - 100 %) 91.4 ABG pH (7.35 - 7.45) 7.464 H ABG pCO2 (35.0 - 45 mmHg) 33.6 L ABG pO2 (80 - 100.0 mmHg) 61.6 L ABG HCO3 (22.0 - 26.0 MMOL/L) 23.9 ABG Total CO2 24.8 ABG Base Excess (-4.0 - 4.0 MMOL/L) 0.4 ABG Hematocrit (37.5 - 50.7 %) 26 L ABG Hemoglobin (12.5 - 16.9 G/DL) 8.9 L Salas Test N/A Sodium (134 - 147 mmol/L) 134 Potassium (3.4 - 5.0 mmol/L) 3.9 Chloride (100 - 108 mmol/L) 100 Ionized Calcium (1.12 - 1.32 MMOL/L) 1.15 Lactic Acid (0.9 - 1.7 mmol/l) 1.1 Temperature (F) 100.8 O2 Delivery Device room air Laboratory Tests 06/05 06/05 06/04 06/04 06/04 0303 0253 1942 1817 1702 Chemistry Sodium (134 - 147 mEq/L) 134 136 Potassium (3.4 - 5.0 mEq/L) 3.8 4.3 Chloride (100 - 108 mEq/L) 104 105 Carbon Dioxide (21 - 33 mEq/l) 25 24 Anion Gap (0 - 20) 9 11 BUN (7 - 18 mg/dL) 13 16 Creatinine (0.6 - 1.3 mg/dL) 0.8 0.9 POC Creatinine (0.8 - 1.3 mg/dL) 0.8 Glomerular Filtr Rate (70 - 80) 87.8 H 84.7 H Glucose (70 - 110 mg/dL) 208 H 201 H POC Glucose (70 - 110 MG/DL) 188 H 200 H POC Glucose (mg/dL) (70 - 110 MG/DL) 203 H Calcium (8.0 - 10.5 mg/dL) 7.9 L 7.9 L Magnesium (1.80 - 2.40 mg/dL) 2.18 Total Bilirubin (0.0 - 1.0 mg/dL) 1.00 Direct Bilirubin (0.0 - 0.30 MG/DL) 0.50 H Indirect Bilirubin (MG/DL) 0.50 AST (15 - 37 IUnit/L) 64 H ALT (30 - 65 IUnit/L) 14 L Total Alk Phosphatase (20 - 125 IUnit/L) 30 Total Protein (6.4 - 8.2 g/dL) 5.4 L Albumin (3.4 - 5.0 g/dL) 3.50 06/04 06/04 06/04 1237 0902 0858 Chemistry POC Glucose (70 - 110 MG/DL) 163 H 151 H Lactic Acid (0.4 - 1.9 mmol/L) 4.6 *H Laboratory Tests 06/05 0409 Coagulation Hep-Terrie Thrombocytopen (()) NEGATIVE Laboratory Tests 06/05 06/04 0253 1817 Hematology WBC (4.5 - 11.0 x10 3/uL) 14.0 H 13.7 H RBC (4.00 - 5.60 x10 6/uL) 2.91 L 2.97 L Hgb (12.5 - 16.9 g/dL) 8.9 L 8.7 L Hct (37.5 - 50.7 %) 26.0 L 26.1 L MCV (81.0 - 99.0 fL) 89.3 87.9 MCH (27.0 - 33.0 pg) 30.6 29.3 MCHC (33.0 - 37.0 g/dL) 34.2 33.3 RDW (11.5 - 14.5 %) 14.9 H 14.6 H Plt Count (150 - 400 x10 3/uL) 59 L 67 L MPV (7.0 - 9.0 fL) 12.0 H 11.8 H Neut % (Auto) (56.0 - 77.0 %) 79.8 H 78.4 H Lymph % (Auto) (14.0 - 32.0 %) 10.1 L 10.7 L [place] % (Auto) (4.8 - 9.0 %) 9.2 H 10.0 H Eos % (Auto) (0.3 - 3.7 %) 0.2 L 0.1 L Baso % (Auto) (0.0 - 2.0 %) 0.1 0.1 Neut # (Auto) (2.0 - 7.6 x10 3/uL) 11.14 H 10.7 8 H Lymph # (Auto) (1.0 - 3.8 x10 3/uL) 1.41 1.47 [place] # (Auto) (0.1 - 0.8 x10 3/uL) 1.28 H 1.37 H Eos # (Auto) (0.0 - 0.2 x10 3/uL) 0.03 0.01 Baso # (Auto) (0.0 - 0.2 x10 3/uL) 0.02 0.01 Abs Immat Gran (auto) (0.00 - 0.03 x10 3/uL) 0. 09 H 0.09 H Add Manual Diff NO NO Immature Gran % (0.0 - 2.0 %) 0.6 0.7 Nucleated RBC % (0 - 0 %) 0.0 0.0 Nucleated RBCs # (Man) (0.0 - 0.1 x10 3/uL) 0.0 0 0.00 Laboratory Tests 06/05/23 0253: [Embedded Image Not Available] 06/04/23 1817: [Embedded Image Not Available] Results: labs reviewed, vital signs reviewed, rh ythm personally rev'd, x-ray personally reviewed, current med profile rev'd Diagnosis, Assessment Plan Free text A P: Problem List: Severe mitral valve prolapse Myxomatous anterior leaflet Paroxysmal atrial fibrillation status post faile d ablation Acute blood loss anemia Elective ventilator dependence Acute pulmonary insufficiency following major ca rdiothoracic surgery History of hypothyroidism Assessment and Plan: Patient was received in CVICU room #2202 this af ternoon. Patient was found to have severe MR with paroxysmal atrial fibrillati on. He underwent mitral valve replacement with 29 Mitris along with isolation of left atrial appendage. Patient had prolapsed mitral valve along with my xomatous thickened anterior leaflet. He is status post mitral valve replacem ent. Patient was low on intravascular volume with a CVP measuring 6 to 7 cm. Received IV fluid bolus. Normal EF. At the end of the procedure there was no evidence of mitral regurgitation or paravalvular leak. Mohini ent received 450 mL of Cell Saver, 1 L of IV fluids, no autologous transfusion was given. Patient received 25% albumin 1 infusion. Had 3 and mL of EBL and 900 mL of ur ine output. Upon transfer to the CVICU patient is on norepinephrine at 2 mcg, epinephrine at 2 and vasopressin at 0.04 units. Patient is currently on assist-control at 20 tidal volume 500 PEEP of 5 and 50% FiO2. Latest blood gas shows a pH of 7.35, pCO2 of 38 mmHg, pO2 of 235 mmHg and bicarbonate of 21 m mol with base excess at -4.3. Latest blood glucose 165 mg/ dL, creatinine 0.72 mg/dL, hemoglobin 9.8 g/dL with hematocrit of 29%. Potassium is 3.6 and is being repleted with 20 mg of potassium chloride and ionized calcium is 1.15. Patient will receive 1 amp of sodium bicarbonate for mild metabolic acidosis. Vital signs are stable with a heart rate of 80 sinus rhyth m, blood pressure is 126/74 mmHg, PA pressures 37/22 mmHg and respiratory rate 24 with pulse ox of 10 0%. Odin Zeng is a 83-year-old gentleman with a [facility] medical history of atrial fibrillation, status post failed ablation in the past, on Eliquis therapy, diabetes, hypothyroid, who was found to have sig nificant mitral valve regurgitation with a flail mitral valve leaflet. He is followed by his custom grinder Dr. Zaidi. He denies any history of stroke, denies any history of chest pains. He is on Eliquis therapy for his at rial fibrillation. Patient admitted for mitral valve replacement for flail mitral valve leaflet. Patient underwent MVR on 06/03/2023. Surgery was uneventf ul. Patient is orally intubated and on mechanical ventilation. Patient is postop day 0 after mitral valve repla cement Was evaluated for severe mitral regurgitation fr om mitral valve prolapse Myxomatous degeneration of the anterior leaflet Low CVP to begin with Patient was volume responsive and was given uzair talloids boluses Normal EF Mildly elevated PA pressures in the 40s Current PA pressure is 37/22 mmHg Vital signs are stable with a heart rate of 80 in sinus rhythm, blood pressure is 126/74 mmHg At the end of surgery no mitral regurgitation or paravalvular leak Patient is on vasopressor [place] pport with Epinephrine and Nor-epinephrine at 2 mics and vasopressin at 0.04 units Mild metabolic acidosis with a pH of 7.35, pCO2 of 38 mmHg, pO2 of 235 mmHg and bicarbonate of 21 mmol with base excess at -4.3 Give 1 amp of sodium bicarbonate INS calcium is 1.15 while the potassium is 3.6 m mol Give 20 mg of potassium chloride Glycemic control adequate at 165 mg/dL Creatinine is normal at 0.72 mg/dL Patient has acute blood loss anemia with a hemoglobin of 9.8 g/dL and hematocrit of 29% Does not meet transfusion threshold at this time Currently on assist-control at 20 tidal volume 5 00 PEEP of 5 and 50% FiO2 Patient is unresponsive at this time Should be fast-track extubation SCDs for DVT prophylaxis Yosi Gomez MD FACP [facility] 06/03/2023 5.23 PM 06/04/2023 Patient seen and examined in CVICU room #2202 this morning and discussed during MDR as well as CT surgery rounds. Patient is pos top day 1 after mitral valve replacement. Major issues are hemoglobin of 7.7 g/dL this morning along with hypotension. Patient is being supported with nor epinephrine at 2 mcg. PA pressure 38/23 mmHg and oxygen saturation is 95% on room air. Patient will be transfused 1 unit of packed red cell. Urine outp ut is 30 mm/h. Cardiac index is 2.4. Patient is 100% paced at 79 bpm. Underly ing rhythm is junctional at 50. He is awake alert x4. Chest tube output 195 and 120 mL respectively and both chest tubes are going to be retaine d today. He is on insulin at 2 units/h and glucose range is 120 - 150 mg/dL. Patient wi ll be started on insulin sliding scale low intensity coverage before meal s and at bedtime and insulin drip will be discontinued. Patient is ambulating with physical therapy, tolerating oral diet, did not have bowel movemen t yet. Hilario catheter is retained. Patient was received in CVICU room #2202 on 06/03. He underwent mitral valve replacement. Patient was found to have sev ere MR with paroxysmal atrial fibrillation. He underwent mitral valve replacem ent with 29 Mitris along with isolation of left atrial appendage. Patient had prolapsed mitral valve along with myxomatous thickened anterior leaflet. He i s status post mitral valve replacement. Patient was low on intravas cular volume with a CVP measuring 6 to 7 cm. Received IV fluid bolus. Normal EF. At the end of the procedure there was no evidence of mitral regurgitation or paravalvular leak. Patient received 450 mL of Cell Saver, 1 L of IV fluids, no autol ogous transfusion was given. Patient received 25% albumin 1 infusion. Had 3 a nd mL of EBL and 900 mL of urine output. Upon transfer to the CVICU patient is on norepinephrine at 2 mcg, epinephrine at 2 and vasopre ssin at 0.04 units. Patient is currently on assist- control at 20 tidal volume 5 00 PEEP of 5 and 50% FiO2. Latest blood gas shows a pH of 7.35, pCO2 of 38 mmHg, pO2 of 235 mmHg and bicarbonate of 21 mmol with base excess at -4.3. Latest blood glucose 165 mg /dL, creatinine 0.72 mg/dL, hemoglobin 9.8 g/dL with hematocrit of 29%. Pota ssium is 3.6 and is being repleted with 20 mg of potassium chlorid e and ionized calcium is 1.15. Patient will receive 1 amp of sodium bicarbonate for mil d metabolic acidosis. Vital signs are stable with a hear t rate of 80 sinus rhythm, blood pressure is 126/74 mmHg, PA pressures 37/22 mmHg and respiratory ra te 24 with pulse ox of 100%. Odin Zeng is a 83-year-old gentleman with a [facility] medical history of atrial fibrillation, status post failed ablation in the past, on Eliquis therapy, diabetes, hypothyroid, who was found to have sig nificant mitral valve regurgitation with a flail mitral valve leaflet. He is followed by his custom grinder Dr. Zaidi. He denies any history of stroke, denies any history of chest pains. He is on Eliquis therapy for his at rial fibrillation. Patient admitted for mitral valve replacement for flail mitral valve leaflet. Patient underwent MVR on 06/03/2023. Surgery was uneventf ul. Patient is orally intubated and on mechanical ventilation. Patient was extubated in a timely fashion. Patient is postop day 1 after MVR (mitral valve replacement) No acute events reported overnight Patient does have soft blood pressure and hemogl obin of 7.7 g/dL He will be transfused 1 unit of packed red cell Urine output is 30 mL/h Monitor urine output and BMP Creatinine is 1.0 mg/dL Patient is 100% paced at 80 bpm Underlying rhythm is junctional at 50 bpm Cardiac index is 2.4 Patient is on room air at 95% PA pressures 38/23 mmHg Glycemic control with insulin drip at 2 units/h Latest blood glucose 162 mg/dL Blood pressure is soft and is being supported wi th norepinephrine at 2 mcg Expect to improve blood pressure with vo lume pentecostal with 1 unit of packed red cell transfusion Chest tube output is 195 mL and 120 mL respectiv jaren and both chest tubes are going to be retained for another 24 hours Hilario catheter is going to be retained Patient is ambulating with physical therapy and tolerating oral diet No bowel movement yet Patient is on bowel regimen SCDs for DVT prophylaxis Yosi Gomez MD FACP [facility] 06/04/2023 11.28 AM 06/05/2023 Patient seen and examined in CVICU room #2202 this morning and discussed during MDR as well as CT surgery rounds. Patient is pos top day 2 after mitral valve replacement. Patient was 100% pacer depe ndent postoperatively. This morning he has been taken off of the pa cer and has intrinsic rhythm at 80. Blood pressures improved at 121/58 mmHg and patient is off of no repinephrine drip. Chest tube output was minimal at 10 mL and 40 mL re spectively overnight. Both chest tubes will be removed today. Patient will have central venous catheter removed as well. Beta-raul is on hold. Patient will cont inue on amiodarone. Hemoglobin is 8.9 g/dL this morning with a isabell l creatinine at 0.8 mg/dL. Urine output was 625 mL overnight. Patient has m ildly elevated blood glucose level and will be on sliding scale coverage moderate intensity before meals and at bedtime. Admission weight was 77 kg patient w eighs 82 kg today. He has not been diuresed yet. [facility] shows a pH of 7.46, PCO2 of 33 mmHg, PO2 of 61 mmHg and bicarbonate of 23 mmol with b ase excess 8.4. Oxygen saturations being monitored closely and stands at 98% now on room air. Patient had acute blood loss anemia and received packed red cell transfusion as of 2022. Patient is ambulating with physical therapy, tolerating oral diet, did not have bowel movement yet. Hilario catheter is retai dar. Patient was received in CVICU room #2202 on 06/03. He underwent mitral valve replacement. Patient was found to have sev ere MR with paroxysmal atrial fibrillation. He underwent mitral valve replacem [facility] with 29 Mitris along with isolation of left atrial appendage. Patient had prolapsed mitral valve along with myxomatous thickened anterior leaflet. He i s status post mitral valve replacement. Patient was low on intravas cular volume with a CVP measuring 6 to 7 cm. Received IV fluid bolus. Normal EF. At the end of the procedure there was no evidence of mitral regurgitation or paravalvular leak. Patient received 450 mL of Cell Saver, 1 L of IV fluids, no autol ogous transfusion was given. Patient received 25% albumin 1 infusion. Had 3 a nd mL of EBL and 900 mL of urine output. Upon transfer to the CVICU patient is on norepinephrine at 2 mcg, epinephrine at 2 and vasopre ssin at 0.04 units. Patient is currently on assist- control at 20 tidal volume 5 00 PEEP of 5 and 50% FiO2. Latest blood gas shows a pH of 7.35, pCO2 of 38 mmHg, pO2 of 235 mmHg and bicarbonate of 21 mmol with base excess at -4.3. Latest blood glucose 165 mg /dL, creatinine 0.72 mg/dL, hemoglobin 9.8 g/dL with hematocrit of 29%. Pota ssium is 3.6 and is being repleted with 20 mg of potassium chlorid e and ionized calcium is 1.15. Patient will receive 1 amp of sodium bicarbonate for mil d metabolic acidosis. Vital signs are stable with a hear t rate of 80 sinus rhythm, blood pressure is 126/74 mmHg, PA pressures 37/22 mmHg and respiratory ra te 24 with pulse ox of 100%. Odin Zeng is a 83-year-old gentleman with a [facility] medical history of atrial fibrillation, status post failed ablation in the past, on Eliquis therapy, diabetes, hypothyroid, who was found to have sig nificant mitral valve regurgitation with a flail mitral valve leaflet. He is followed by his custom grinder Dr. Zaidi. He denies any history of stroke, denies any history of chest pains. He is on Eliquis therapy for his at rial fibrillation. Patient admitted for mitral valve replacement for flail mitral valve leaflet. Patient underwent MVR on 06/03/2023. Surgery was uneventf ul. Patient is orally intubated and on mechanical ventilation. Patient was extubated in a timely fashion. Patient is postop day 2 after MVR (mitral valve replacement) No acute events reported overnight Patient was 100% pacer dependent postoperatively Has intrinsic rhythm in the 80s now Blood pressure is stable at 121/58 mm Hg Oxygen has been weaned and discontinued Patient was hypotensive and had acute blood loss anemia Required 1 unit of packed red cell transfusion o n 06/04/2023 Posttransfusion hemoglobin is 8.9 g/dL Kidney function is normal with a creatinine of 0 .8 mg/dL Urine output adequate at 625 mL overnight Patient is diuresing spontaneously Admission weight was 77 kg and patient weighs 82 kg today Hold beta-raul for now Patient will be on amiodarone oral DC central venous catheter DC chest tube Glycemic control with insuli n sliding scale coverage before meals and at bedtime Hilario catheter to be retained Follow oxygen saturation as patient has marginal PaO2 on the arterial blood gas ABG this morning showed a pH of 7.46, PCO2 of 33 mmHg, PO2 of 61 mmHg and bicarbonate of 23 mmol with base excess at 0.4 Chest tube output was 10 mL and 40 mL respective ly Both chest tubes to be removed today SCDs for DVT prophylaxis Yosi Gomez MD [facility] 06/05/2023 11.02 AM Consultants: anesthesiology, cardiology, cardiov ascular surgery, critical/ paper testing supervisor, hospitalist Code status: full code Plan discussed with: patient , consultants, nurse, interdisc care team, pharmacy/ pharmacist Critical care time: Minutes: 40 Electronically Signed by Yosi Gomez MD on 05/18 08/10 at 1115 RPT #:[id number] END OF REPORT 2023-06-05 04:36:00-00:00 [id number] [place] [id number] PATIENT NAME: ODIN ZENG ADMIT DATE: 06/03/23 ACCOUNT NO: [id number] ROOM NO: [facility] AGE: 83 REPORT TYPE: eELECTROCARDIOGRAM REPORT SEX: M ADMITTING PHYSICIAN:Abiodun Sanchez MD ATTENDING PHYSICIAN:Abiodun Sanchez MD Order: [id number] Test Reason : Cardiac Surgery Post Op Test Date/Time Stamp: SatJun 05 2023 04:36:05 Blood Pressure : / mmHG Vent. Rate : 061 BPM Atrial Rate : 061 BPM P-R Int : 056 ms QRS Dur : 072 ms QT Int : 404 ms P-R-T Axes : 000 048 045 degree s QTc Int : 406 ms Sinus rhythm with short SD Nonspecific ST abnormality When compared with ECG of 04-JUN-2023 04:27, Significant changes have occurred Confirmed by TOÑA BERTRAND ([id number]) on 8:04:30 AM Referred By: Avila Sanchez Confirmed by:TOÑA BERTRAND at 0804 PATIENT NAME: ODIN ZENG 51 2023-06-05 04:30:00-00:00 [facility]ACL [facility] Cardiothoracic Surgery Prog REPORT#:[id number] REPORT STATUS: Signed DATE:06/05/23 TIME: 0430 PATIENT: ODIN ZENG UNIT #: [id number] ROOM/BED: 2202-1 : 40 AGE: 83 SEX: M ATTEND: Ramo Sanchez MD ADM AUTHOR: Kerri Cassidy Physic * ALL edits or amendments must be made on the [employer]/computer document * General Post-op: day 2 Status post: 06/03/23 PROCEDURES: 1. Mitral valve replacement (29 Mitris valve). 2. Pulmonary vein isolation. 3. Isolation of left atrial appendage. Subjective Chief complaint: Resting comfortable. Denies compliants Review of Systems Constitutional: Denies: fatigue, fever. Skin: Denies: rash, swelling. Eyes: Denies: diplopia. ENT: Denies: hearing loss, mouth pain. Respiratory: Denies: REYES (dyspnea on exertion), SOB. Cardiovascular: Denies: chest pain, REYES (dyspnea on exertion). GI: Denies: constipation, diarrhea. Musculoskeletal: Denies: joint pain, joint swelling. Heme: Denies: bleeding, bruising. All systems rev neg: except as marked Objective General VS/I O Last Documented: Result Date Time Pulse Ox 100 06/04 2024 O2 Delivery Room air 06/04 2024 B/P 144/46 06/04 181 B/P Mean 67 06/04 181 Temp 100.9 06/04 181 Pulse 80 06/04 1815 Resp 14 06/04 1815 FiO2 21 06/04 1542 O2 Flow Rate 2 06/04 0800 24 hour I O ending at 0700: 06/05 0700 06/04 1900 Intake Total 1996.10 Output Total 420 795 Balance -420 1201.10 Intake, IV 446.10 Intake, Oral 1200 Intake, 350 Packed Cells Number 1 Bowel Movements Output, Chest 170 Tube Drainage Output, Urine 420 625 Patient 76.204 kg Weight PATIENT WEIGHT: Weight (lb): 168 Weight (oz): 10.46 Weight (kg): 76.204 Physical Exam General appearance: alert, awake, oriented Wound/incision: Location: Sternum clean and dry HEENT: mucosal membranes moist Neck: non-tender Cardiovascular: BP/pulses equal bilat. Respiratory: decreased breath sounds Abdomen: soft, non-tender Extremities: dry, moves all Musculoskeletal: full range of motion Neuro/CERTIFIED NURSES AIDE: alert, oriented X 3 Skin: dry Diagnosis, Assessment Plan Free Text A P: This is an 83-year-old gentleman with a past med ica history of atrial fibrillation, status post failed ablation in the past, on Eliquis therapy, diabetes, hypothyroid, who was found to have sig nificant mitral valve regurgitation with a flail mitral valve leaflet. He is followed by his custom grinder Dr. Lobito hernandez. He has an outpatient left heart catheterization scheduled in the near future. He denies any history of stroke, denies any hist ory of chest pains. He is on Eliquis therapy for his atrial fibrilla tion. Patient admitted for mitral valve replacement fo r flail mitral valve leaflet. Assessment/plan 1. Mitral valve regurgitation 2. Atrial fibrillation Patient is admitted for mitr al valve replacement with PVI, left atrial appendage amputation. This was discussed with the patient by Dr. Duong siddiqi. The risk of the operation including STS score, r isk of , bleeding, heart attack, stroke, renal failur e, dialysis, prolonged ICU stay, tracheostomy, need for long-term rehabilitation etc. was discussed with the patient in depth. Patient's questions were ans wered and the patient agreed to proceed with surgery 06/03/23 1. Mitral valve replacement (29 Mitris valve). 2. Pulmonary vein isolation. 3. Isolation of left atrial appendage. 06/04/23 POD 1 AAOx3 Respiratory: On room air 94% Encourage IS, Deep Breathing, CXR reviewed monitor chest tube drainage Cardiac: Atrial paced, baseline appears to be es cape junctional GI: +gas, Continue Bowel regimen : Hilario in place UO: 800 Continue PT/OT DVT prophylaxis, SCDs in place Labs reveiwed-hemoglobin low we will give 1 unit of blood Patient seen and examined by Dr. Sanchez. Plan o f care discussed with multidisciplinary team 06/05/23 POD 2 S/P MVR, PVI, ALAA AAOx3 Respiratory: On room air 94% Encourage IS, Deep Breathing, CXR reviewed DC chest tube, Cardiac: A Paced @ 80 with V conduction, underlying rate 50-60, Obtain 12 lead GI: Continue Bowel regimen UO: 600 Continue PT/OT DVT prophylaxis, SCDs in place Labs reveiwed Patient seen and examined by Dr. Sanchez. Plan o f care discussed with multidisciplinary team Dc neck line. continue supportive care. Consultants: anesthesiology, cardiology, cardiov ascular surgery, critical/ paper testing supervisor, hospitalist at 0914 at 1738 RPT #:[id number] END OF REPORT 2023-06-04 15:08:00-00:00 [facility]L [facility] Cardiothoracic Surgery Prog REPORT#:[id number] REPORT STATUS: Signed DATE:06/04/23 TIME: 1508 PATIENT: ODIN ZENG UNIT #: [id number] ROOM/BED: [place] [address] : 40 AGE: 83 SEX: M ATTEND: Ramo Sanchez MD ADM AUTHOR: Kerri Cassidy Physic * ALL edits or amendments must be made on the [employer]/computer document * General Post-op: day 1 Status post: 06/03/23 PROCEDURES: 1. Mitral valve replacement (29 Mitris valve). 2. Pulmonary vein isolation. 3. Isolation of left atrial appendage. Subjective Chief complaint: Extubated timely, resting comfortable, denies co mplaint Review of Systems Constitutional: Denies: fatigue, fever. Skin: Denies: rash, swelling. Eyes: Denies: diplopia. ENT: Denies: hearing loss, mouth pain. Respiratory: Denies: REYES (dyspnea on exertion), SOB. Cardiovascular: Denies: chest pain, REYES (dyspnea on exertion). GI: Denies: constipation, diarrhea. Musculoskeletal: Denies: joint pain, joint swelling. Heme: Denies: bleeding, bruising. All systems rev neg: except as marked Objective General VS/I O Last Documented: Result Date Time Pulse Ox 95 06/04 1430 B/P 141/48 06/04 1430 B/P Mean 69 06/04 1430 Temp 100.8 06/04 1430 Pulse 80 06/04 1430 Resp 23 06/04 1430 FiO2 21 06/04 0849 O2 Delivery Room air 06/04 0849 O2 Flow Rate 2 06/04 0800 24 hour I O ending at 0700: 06/04 0700 06/03 1900 Intake Total 1926.00 2230.40 Output Total 1010 1955 Balance 916.00 275.40 Intake, IV 1686.00 1050.40 Intake, Oral 240 Intake, Other 1180 Output, Chest 285 155 Tube Drainage Output, 300 Estimated Blood Loss Output, Other 900 Output, Urine 725 600 Patient 76.5 kg Weight Weight Bed scale Measurement Method PATIENT WEIGHT: Weight (lb): 168 Weight (oz): 10.46 Weight (kg): 76.204 Physical Exam General appearance: alert, awake Wound/incision: Location: Sternum clean and dry HEENT: mucosal membranes moist Neck: non-tender Cardiovascular: BP/pulses equal bilat. Respiratory: decreased breath sounds Abdomen: soft, non-tender Extremities: dry, moves all Musculoskeletal: full range of motion Neuro/CERTIFIED NURSES AIDE: alert, oriented X 3 Skin: dry Diagnosis, Assessment Plan Free Text A P: This is an 83-year-old gentleman with a past med ica history of atrial fibrillation, status post failed ablation in the past, on Eliquis therapy, diabetes, hypothyroid, who was found to have sig nificant mitral valve regurgitation with a flail mitral valve leaflet. He is followed by his custom grinder Dr. Lobito hernandez. He has an outpatient left heart catheterization scheduled in the near future. He denies any history of stroke, denies any hist ory of chest pains. He is on Eliquis therapy for his atrial fibrilla tion. Patient admitted for mitral valve replacement fo r flail mitral valve leaflet. Assessment/plan 1. Mitral valve regurgitation 2. Atrial fibrillation Patient is admitted for mitr al valve replacement with PVI, left atrial appendage amputation. This was discussed with the patient by Dr. Duong siddiqi. The risk of the operation including STS score, r isk of , bleeding, heart attack, stroke, renal failur e, dialysis, prolonged ICU stay, tracheostomy, need for long-term rehabilitation etc. was discussed with the patient in depth. Patient's questions were ans wered and the patient agreed to proceed with surgery 06/03/23 1. Mitral valve replacement (29 Mitris valve). 2. Pulmonary vein isolation. 3. Isolation of left atrial appendage. 06/04/23 POD 1 AAOx3 Respiratory: On room air 94% Encourage IS, Deep Breathing, CXR reviewed monitor chest tube drainage Cardiac: Atrial paced, baseline appears to be es cape junctional GI: +gas, Continue Bowel regimen : Hilario in place UO: 800 Continue PT/OT DVT prophylaxis, SCDs in place Labs reveiwed-hemoglobin low we will give 1 unit of blood Patient seen and examined by Dr. Sanchez. Plan o f care discussed with multidisciplinary team Consultants: anesthesiology, cardiology, cardiov ascular surgery, critical/ paper testing supervisor, hospitalist at 1512 at 1157 RPT #:[id number] END OF REPORT 2023-06-04 11:17:00-00:00 [facility]ACL [facility] Critical Care Progress Note REPORT#:[id number] REPORT STATUS: Signed DATE:06/04/23 TIME: 1117 PATIENT: ODIN ZENG UNIT #: [id number] ROOM/BED: [place] [address] : 40 AGE: 83 SEX: M ATTEND: Ramo Sanchez MD ADM AUTHOR: Yosi Gomez MD * ALL edits or amendments must be made on the [employer]/computer document * Subjective Chief complaint: Severe mitral valve prolapse Myxomatous anterior leaflet Paroxysmal atrial fibrillation status post faile d ablation Acute blood loss anemia Elective ventilator dependence Acute pulmonary insufficiency following major ca rdiothoracic surgery History of hypothyroidism HPI: Patient seen and examined in CVICU room #2202 this morning and discussed during MDR as well as CT surgery rounds. Patient is pos top day 1 after mitral valve replacement. Major issues are hemoglobin of 7.7 g/dL this morning along with hypotension. Patient is being supported with nor epinephrine at 2 mcg. PA pressure 38/23 mmHg and oxygen saturation is 95% on room air. Patient will be transfused 1 unit of packed red cell. Urine outp ut is 30 mm/h. Cardiac index is 2.4. Patient is 100% paced at 79 bpm. Underly ing rhythm is junctional at 50. He is awake alert x4. Chest tube output 195 and 120 mL respectively and both chest tubes are going to be retaine d today. He is on insulin at 2 units/h and glucose range is 120 - 150 mg/dL. Patient wi ll be started on insulin sliding scale low intensity coverage before meal s and at bedtime and insulin drip will be discontinued. Patient is ambulating with physical therapy, tolerating oral diet, did not have bowel movemen t yet. Hilario catheter is retained. Patient was received in CVICU room #2202 on 06/03. He underwent mitral valve replacement. Patient was found to have sev ere MR with paroxysmal atrial fibrillation. He underwent mitral valve replacem ent with 29 Mitris along with isolation of left atrial appendage. Patient had prolapsed mitral valve along with myxomatous thickened anterior leaflet. He i s status post mitral valve replacement. Patient was low on intravas cular volume with a CVP measuring 6 to 7 cm. Received IV fluid bolus. Normal EF. At the end of the procedure there was no evidence of mitral regurgitation or paravalvular leak. Patient received 450 mL of Cell Saver, 1 L of IV fluids, no autol ogous transfusion was given. Patient received 25% albumin 1 infusion. Had 3 a nd mL of EBL and 900 mL of urine output. Upon transfer to the CVICU patient is on norepinephrine at 2 mcg, epinephrine at 2 and vasopre ssin at 0.04 units. Patient is currently on assist- control at 20 tidal volume 5 00 PEEP of 5 and 50% FiO2. Latest blood gas shows a pH of 7.35, pCO2 of 38 mmHg, pO2 of 235 mmHg and bicarbonate of 21 mmol with base excess at -4.3. Latest blood glucose 165 mg /dL, creatinine 0.72 mg/dL, hemoglobin 9.8 g/dL with hematocrit of 29%. Pota ssium is 3.6 and is being repleted with 20 mg of potassium chlorid e and ionized calcium is 1.15. Patient will receive 1 amp of sodium bicarbonate for mil d metabolic acidosis. Vital signs are stable with a hear t rate of 80 sinus rhythm, blood pressure is 126/74 mmHg, PA pressures 37/22 mmHg and respiratory ra te 24 with pulse ox of 100%. Odin Zeng is a 83-year-old gentleman with a [facility] medical history of atrial fibrillation, status post failed ablation in the past, on Eliquis therapy, diabetes, hypothyroid, who was found to have sig nificant mitral valve regurgitation with a flail mitral valve leaflet. He is followed by his custom grinder Dr. Zaidi. He denies any history of stroke, denies any history of chest pains. He is on Eliquis therapy for his at rial fibrillation. Patient admitted for mitral valve replacement for flail mitral valve leaflet. Patient underwent MVR on 06/03/2023. Surgery was uneventf ul. Patient is orally intubated and on mechanical ventilation. Patient was extubated in a timely fashion. Patient reports: No: diarrhea, fever, headache, shortness of tawanda th, vomiting. Nursing reports: No: diarrhea, fever, headache, vomiting. Review of Systems Constitutional: Denies: fatigue, fever. Skin: Denies: contusion, diaphoresis, ecchymosis, swel ling. Allergy/Immun: Denies: anaphylaxis, hives. Eyes: Denies: redness, discharge. ENT: Denies: nose bleeding, throat swelling, tongue s welling. Respiratory: Denies: hemoptysis, SOB, wheezing. Cardiovascular: Denies: REYES (dyspnea on exertion), edema. GI: Denies: GERD, hematochezia, hiatal hernia, vomit ing. : Denies: hematuria, nocturia, urgency. Heme: Denies: bleeding, bruising. Endocrine: Denies: polydipsia, polyphagia. Neuro: Denies: confusion, dizziness, seizure. Psych: Denies: agitation, anxiety, insomnia, stress. Objective General VS/I O Last Documented: Result Date Time Pulse Ox 99 06/04 715 B/P 99/54 06/04 715 B/P Mean 71 06/04 715 Temp 38.2 06/04 715 Pulse 80 06/04 715 Resp 11 06/04 715 FiO2 3 06/03 2000 O2 Delivery Nasal cannula 06/03 2000 O2 Flow Rate 06/03 1930 24 hour I O ending at 0700: 06/04 0700 06/03 1900 Intake Total 1926.00 2230.40 Output Total 1010 1955 Balance 916.00 275.40 Intake, IV 1686.00 1050.40 Intake, Oral 240 Intake, Other 1180 Output, Chest 285 155 Tube Drainage Output, 300 Estimated Blood Loss Output, Other 900 Output, Urine 725 600 Patient 76.5 kg Weight Weight Bed scale Measurement Method PATIENT WEIGHT: Weight (lb): 168 Weight (oz): 10.46 Weight (kg): 76.500 Medications: Active Meds + DC'd Last 24 Hrs Ipratropium [place] (ATROVENT) 500 MCG RTQ2H PRN PRN INH Cyanocobalamin (Vitamin B-12 500 mcg tab) 500 MC G DAILY PO Ferrous Sulfate (FERROUS SULFATE) 325 MG DAILY P O Bisacodyl (DULCOLAX) 10 MG ONCE PRN RECTAL Magnesium Hydroxide (MILK OF MAGNESIA) 30 ML ONC E PRN PO Atorvastatin Calcium (LIPITOR) 40 MG 2100 PO Calcium Gluconate (Calcium Gluconate 1 GM/NS 50 mL (B2)) 50 ML ONCE ONE IV (UNV) Insulin Human Lispro (HUMALOG) 0 AC HS SUBQ (UNV ) Polyethylene Glycol (MIRALAX) 17 GM DAILY PO Tamsulosin HCl (Flomax 0.4 mg) 0.4 MG PC BK PO Levothyroxine Sodium (Synthroid) 75 MCG DAILY 06 00 PO Albumin Human (ALBUMINAR 5% 12.5GM/250ML) 250 ML ONCE ONE IV (DC) Aspirin (ASPIRIN) 81 MG DAILY PO Amiodarone HCl (CORDARONE) 200 MG TID PO Docusate Sodium (COLACE) 100 MG BID PO Gabapentin (NEURONTIN) 200 MG BID PO Metoprolol Tartrate (LOPRESSOR) 12.5 MG Q12HR PO Mupirocin (BACTROBAN 2% 22 GM OINTMENT) 1 APPLIC BID NASAL Sennosides (Senna Lax 8.6 MG TABLET) 17.2 MG BED TIME PO Calcium Gluconate (Calcium Gluconate 1 GM/NS 50 mL (B2)) 50 ML ONCE ONE IV (DC) Potassium Chloride (KCL 20MEQ/SWFI 100ML) 100 ML ONCE ONE IV (DC) Sodium Bicarbonate (SODIUM BICARBONATE) 50 MEQ O NCE ONE IV (DC) Furosemide (LASIX 20MG INJ) 10 MG ONCE ONE IV (D C) Albumin Human (ALBUMINAR-25%) 50 ML .STK-MED ONE IV (DC) Vasopressin (VASOSTRICT) 0 .STK-MED ONE .ROUTE ( DC) Ipratropium [place] (ATROVENT) 500 MCG RTQ4H INH Acetaminophen (TYLENOL) 650 MG Q4H PRN PRN PO Acetaminophen (TYLENOL) 650 MG Q4H PRN PRN RECTA L Albumin Human (ALBUMINAR 25%) 25 GM ASDIR PRN IV Calcium Chloride (CALCIUM CHLORIDE) 1 GM ASDIR P RN IV Cefazolin Sodium (KEFZOL OR ANCEF) 3 GM ONCE ONE IV Sodium Chloride (SODIUM CHLORIDE 0.9%) 250 ML Dextrose/Water (DEXTROSE 10% IN WATER) 125 ML DIR PRN IV (CKD) Dextrose/Water (DEXTROSE 10% IN WATER) 250 ML DIR PRN IV (CKD) Epinephrine (ADRENALIN CHLORIDE) 4 MG ASDIR IV Dextrose/Water (DEXTROSE 5% WATER) 246 ML Glucagon (GLUCAGON) 1 MG ASDIR PRN IM Insulin Human Regular (HumuLIN R) 100 UNIT ASDIR IV (CKD) Sodium Chloride (SODIUM CHLORIDE 0.9%) 99 ML Magnesium Sulfate (MAGNESIUM SULFATE 4GM/SWFI 10 0ML) 100 ML ASDIR PRN IV Magnesium Sulfate (MAGNESIUM SULFATE 2GM/SWFI 50 ML) 50 ML ASDIR PRN IV Magnesium Sulfate/Dextrose (MAGNESIUM SULFATE 1G M/D5W 100ML) 100 ML ASDIR PRN IV Morphine Sulfate (morphine SULFATE) 4 MG Q2H PRN PRN IV (DC) Nitroglycerin/Dextrose (NITROGLYCERIN 50,000MCG/ D5W 250ML) 250 ML ASDIR IV Norepinephrine Bitartrate (NOREPINEPHRINE 8 MG/N S 250 ML) 250 ML TITRATE IV Ondansetron HCl (ZOFRAN) 4 MG Q6H PRN PRN IV Oxycodone HCl (ROXICODONE) 5 MG Q4H PRN PRN PO Oxycodone HCl (ROXICODONE) 10 MG Q4H PRN PRN PO Potassium Chloride (KCL 20MEQ/SWFI 100ML) 100 ML ASDIR PRN IV Sodium Bicarbonate (SODIUM BICARBONATE) 50 MEQ A SDIR PRN IV Sodium Chloride (SODIUM CHLORIDE 0.9%) 1,000 ML .Q20H IV Sodium Chloride (SODIUM CHLORIDE 0.9%) 250 ML Q2 4H IV Cefazolin Sodium (KEFZOL OR ANCEF) 2 GM PREOP PRODUCT GRADER IV (DC) Insulin Human Lispro (HUMALOG) 0 Q4H PRN PRN SUB Q Vancomycin HCl (Vancomycin 1,250 mg Inj (B2)) 1, 250 MG PREOP ONCALL IV ( DC) Sodium Chloride (SODIUM CHLORIDE 0.9%) 250 ML Protamine Sulfate (PROTAMINE SULFATE) 0 .STK-MED ONE IV (DC) Fentanyl Citrate (SUBLIMAZE) 0 .STK-MED ONE IV ( DC) Propofol (DIPRIVAN 200MG/20ML INJECTION) 20 ML . STK-MED ONE IV (DC) Dexamethasone Sodium Phosphate (DECADRON) 0 .STK -MED ONE .ROUTE (DC) Lidocaine HCl (XYLOCAINE) 0 .STK-MED ONE .ROUTE (DC) Ondansetron HCl (ZOFRAN) 0 .STK-MED ONE .ROUTE ( DC) Rocuronium [place] (ZEMURON) 0 .STK-MED ONE IV ( DC) Sodium Chloride (SODIUM CHLORIDE) 20 ML ASDIR IV Sodium Chloride (SODIUM CHLORIDE 0.9%) 250 ML .S TK-MED ONE IV (DC) Vancomycin HCl (Vancomycin 1,250 mg Inj (B2)) 0 .STK-MED ONE IV (DC) Norepinephrine Bitartrate (LEVOPHED BITARTATE) 0 .STK-MED ONE IV (DC) Sodium Chloride (SODIUM CHLORIDE 0.9%) 250 ML . STK-MED ONE IV (DC) Protamine Sulfate (PROTAMINE SULFATE) 0 .STK-MED ONE IV (DC) Cefazolin Sodium (KEFZOL OR ANCEF) 0 .STK-MED ON E .ROUTE (DC) Epinephrine HCl (EPINEPHrine 4 mg/D5W 250 mL) 25 0 ML .STK-MED ONE IV (DC ) Heparin Sodium (HEPARIN SODIUM) 0 .STK-MED ONE . ROUTE (DC) Insulin Human Regular (HumuLIN R 100 UNITS/NS 10 0ML) 100 ML .STK-MED ONE IV (DC) Nitroglycerin/Dextrose (NITROGLYCERIN 50,000MCG/ D5W 250ML) 250 ML .STK-MED ONE IV (DC) Ropivacaine (NAROPIN 0.5% 150 MG/30mL) 0 .STK-ME D ONE .ROUTE (DC) Sodium Chloride (SODIUM CHLORIDE 0.9%) 100 ML .S TK-MED ONE IV (DC) Aminocaproic Acid (AMICAR) 0 .STK-MED ONE IV (DC ) Calcium Chloride (CALCIUM CHLORIDE) 0 .STK-MED O NE IV (DC) Magnesium Sulfate (MAGNESIUM SULFATE) 0 .STK-MED ONE .ROUTE (DC) Vancomycin HCl (VANCOMYCIN HCL) 1,000 MG Q12H IV (DC) Sodium Chloride (SODIUM CHLORIDE 0.9%) 250 ML Acetaminophen (TYLENOL EXTRA STRENGTH) 1,000 MG PREOP ONCALL PO (DC) Gabapentin (NEURONTIN) 200 MG PREOP ONCALL PO (D C) Lactated Ringer's (LACTATED RINGERS) 1,000 ML SD EOP ONCALL IV Lidocaine HCl (LIDOCAINE HCL/PF) 2 ML PREOP ONCA LL LOCAL Lidocaine HCl (LIDOCAINE HCL/PF) 2 ML PREOP ONCA LL LOCAL Sodium Chloride (SODIUM CHLORIDE 0.9%) 500 ML SD EOP ONCALL IV Sodium Chloride (SODIUM CHLORIDE 0.9%) 500 ML SD EOP ONCALL IV Sodium Chloride (SODIUM CHLORIDE 0.9%) 1,000 ML PREOP ONCALL IV Sodium Chloride (SODIUM CHLORIDE) 5 ML ASDIR PRN IV Sodium Chloride (SODIUM CHLORIDE) 10 ML ASDIR SD N IV Sodium Chloride (SODIUM CHLORIDE 0.9%) 250 ML DIR PRN IV Post-op: day 1 Status post: MVR (mitral valve replacement) Physical Exam General appearance: alert, awake, oriented, no a cute distress, pleasant, conversational, mental status normal, no respira tory distress Head/eyes: atraumatic, EOMI, normocephalic, PERR L ENT: moist mucosal membranes, normal sinus Neck: non-tender, no JVD, no masses or swelling Cardiovascular: normal capillary refill, normal heart sounds, regular rate and rhythm Respiratory: aerating well, clear to auscultatio n, symmetric expansion, no distress Abdomen: soft, non-tender, no distention, no gua rding, no rebound Genitourinary: no flank pain Extremities: no clubbing, no cyanosis, no edema Neuro/CERTIFIED NURSES AIDE: alert, oriented X 3, CNII-XII intact, normal speech, reflexes equal bilat, no motor deficits, no sensory deficits Skin: dry, normal color, normal temperature, no rash Psychiatry: normal affect, n ormal judgment/insight, normal mood, not homicidal, not suicidal, no hallucinations Results Findings/data: Laboratory Tests 06/04 06/03 06/03 06/03 4930 [id number] 2010 Blood Gas Puncture Site Art Line swan Art Line swan O2 Saturation (90 - 100 %) 96.7 98.5 ABG pH (7.35 - 7.45) 7.415 7.358 ABG pCO2 (35.0 - 45 mmHg) 37.5 37.9 ABG pO2 (80 - 100.0 mmHg) 90.6 120.5 H ABG HCO3 (22.0 - 26.0 MMOL/L) 23.8 21.3 L ABG Total CO2 24.9 22.4 ABG Base Excess (-4.0 - 4.0 MMOL/L) -0.5 -4.2 L ABG Hematocrit (37.5 - 50.7 %) 22 L 27 L 28 L 2 7 L ABG Hemoglobin (12.5 - 16.9 G/DL) 7.5 L 9.1 L 9 .4 L 9.3 L Salas Test N/A N/A N/A N/A VBG pH (7.33 - 7.45) 7.307 L 7.273 L VBG pCO2 (43 - 47 mmHg) 47.6 H 47.6 H VBG pO2 (10 - 50 mmHG) 33.3 29.9 VBG HCO3 (22 - 27 MMOL/L) 23.6 22.0 POC VBG Total CO2 25.1 23.5 VBG O2 Saturation (60 - 80 %) 55.6 L 48.9 L VBG Base Excess (-4.0 - 4.0 MMOL/L) -2.5 -4.8 L VBG Temperature (F) 99.7 98.4 Sodium (134 - 147 mmol/L) 142 144 143 145 Potassium (3.4 - 5.0 mmol/L) 4.3 3.8 3.8 3.5 Chloride (100 - 108 mmol/L) 108 107 110 H 109 H Ionized Calcium (1.12 - 1.32 MMOL/L) 1.10 L 1.1 4 1.11 L 1.14 Lactic Acid (0.9 - 1.7 mmol/l) 3.8 H 6.9 *H 5.8 *H 8.2 *H Temperature (F) 100.6 99.1 O2 Delivery Device Cannula Cannula Cannula 3 Vent Mode PS 06/03 06/03 06/03 06/03 1825 1657 1614 1520 Blood Gas Puncture Site Art Line Art Line O2 Saturation (90 - 100 %) 99.7 99.8 100.0 100. 0 ABG pH (7.35 - 7.45) 7.401 7.357 7.355 7.397 ABG pCO2 (35.0 - 45 mmHg) 31.0 L 37.8 38.7 39.7 ABG pO2 (80 - 100.0 mmHg) 185.7 H 233.9 *H 573. 9 *H 381.5 *H ABG PO2/FiO2 Ratio (mm/Hg) 464.25 467.80 ABG HCO3 (22.0 - 26.0 MMOL/L) 19.3 L 21.3 L 21. 6 L 24.4 ABG Total CO2 20.3 22.5 22.8 25.6 ABG Base Excess (-4.0 - 4.0 -5.6 L -4.3 L -3.6 -0.4 MMOL/L) ABG Hematocrit (37.5 - 50.7 %) 29 L 29 L 28 L 2 7 L ABG Hemoglobin (12.5 - 16.9 G/DL) 9.8 L 9.8 L 9 .6 L 9.3 L Salas Test N/A N/A Sodium (134 - 147 mmol/L) 144 141 142 137 Potassium (3.4 - 5.0 mmol/L) 3.8 3.6 3.9 5.2 H Chloride (100 - 108 mmol/L) 111 H 109 H 109 H 1 05 Ionized Calcium (1.12 - 1.32 1.01 L 1.15 1.14 1.00 L MMOL/L) Lactic Acid (0.9 - 1.7 mmol/l) 3.4 H 1.7 Temperature (F) 98 98 O2 Delivery Device Adult Vent Adult Vent Vent Mode CPAP/PS AC Vent Rate (/MIN) 20 FiO2 (%) 40 50 Tidal Volume (ml) 500 PEEP (cmH2O) 5 5 Pressure Support (cmH2O) 10 06/03 06/03 06/03 06/03 1436 1411 1332 1234 Blood Gas O2 Saturation (90 - 100 %) 100.0 100.0 100.0 96 .4 ABG pH (7.35 - 7.45) 7.422 7.553 *H 7.412 7.438 ABG pCO2 (35.0 - 45 mmHg) 39.6 31.2 L 35.5 38. 1 ABG pO2 (80 - 100.0 mmHg) 431.8 *H 432.7 *H 610 .1 *H 81.6 ABG HCO3 (22.0 - 26.0 MMOL/L) 25.8 27.5 H 22.6 25.7 ABG Total CO2 27.0 28.4 23.7 26.9 ABG Base Excess (-4.0 - 4.0 MMOL/L) 1.3 5.1 H - 1.6 1.6 ABG Hematocrit (37.5 - 50.7 %) 29 L 27 L 35 L 4 0 ABG Hemoglobin (12.5 - 16.9 G/DL) 9.7 L 9.3 L 1 2.0 L 13.5 Sodium (134 - 147 mmol/L) 137 139 140 139 Potassium (3.4 - 5.0 mmol/L) 5.3 H 5.8 H 3.5 3. 7 Chloride (100 - 108 mmol/L) 105 106 107 103 Ionized Calcium (1.12 - 1.32 MMOL/L) 1.03 L 0.9 9 L 1.13 1.23 Lactic Acid (0.9 - 1.7 mmol/l) 1.4 1.3 0.9 1.5 Laboratory Tests 06/04 06/04 06/04 06/04 06/04 0902 0858 0416 0413 0412 Chemistry Sodium (134 - 147 mEq/L) 144 Potassium (3.4 - 5.0 mEq/L) 4.3 Chloride (100 - 108 mEq/L) 110 H Carbon Dioxide (21 - 33 mEq/l) 24 Anion Gap (0 - 20) 15 BUN (7 - 18 mg/dL) 14 Creatinine (0.6 - 1.3 mg/dL) 1.0 POC Creatinine (0.8 - 1.3 mg/dL) 0.9 Glomerular Filtr Rate (70 - 80) 74.7 Glucose (70 - 110 mg/dL) 137 H POC Glucose (70 - 110 MG/DL) 151 H POC Glucose (mg/dL) (70 - 110 MG/DL) 138 H Lactic Acid (0.4 - 1.9 mmol/L) 4.6 *H 3.8 H Calcium (8.0 - 10.5 mg/dL) 7.9 L Magnesium (1.80 - 2.40 mg/dL) 2.36 Total Bilirubin (0.0 - 1.0 mg/dL) 0.50 Direct Bilirubin (0.0 - 0.30 MG/DL) 0.30 Indirect Bilirubin (MG/DL) 0.20 AST (15 - 37 IUnit/L) 61 H ALT (30 - 65 IUnit/L) 11 L Total Alk Phosphatase (20 - 125 19 L IUnit/L) Total Protein (6.4 - 8.2 g/dL) 5.3 L Albumin (3.4 - 5.0 g/dL) 3.90 06/04 06/04 06/04 06/03 06/03 0212 0133 7 2230 2127 Chemistry Sodium (134 - 147 mEq/L) 143 Potassium (3.4 - 5.0 mEq/L) 3.8 Chloride (100 - 108 mEq/L) 110 H Carbon Dioxide (21 - 33 mEq/l) 21 Anion Gap (0 - 20) 16 BUN (7 - 18 mg/dL) 14 Creatinine (0.6 - 1.3 mg/dL) 1.1 POC Creatinine (0.8 - 1.3 mg/dL) 0.9 Glomerular Filtr Rate (70 - 80) 66.6 L Glucose (70 - 110 mg/dL) 152 H POC Glucose (70 - 110 MG/DL) 129 H 130 H POC Glucose (mg/dL) (70 - 110 MG/DL) 146 H Lactic Acid (0.4 - 1.9 mmol/L) 5.3 *H Calcium (8.0 - 10.5 mg/dL) 8.4 Magnesium (1.80 - 2.40 mg/dL) 2.53 H 06/03 165 Chemistry POC Creatinine (0.8 - 1.3 mg/dL) 0.9 0.8 0.7 L 0.7 L POC Glucose (70 - 110 MG/DL) 131 H POC Glucose (mg/dL) (70 - 110 MG/DL) 155 H 137 H 144 H 165 H 06/03 06/03 06/03 06/03 06/03 1621 1614 1520 1436 1411 Chemistry Sodium (134 - 147 mEq/L) 143 Potassium (3.4 - 5.0 mEq/L) 3.7 Chloride (100 - 108 mEq/L) 109 H Carbon Dioxide (21 - 33 mEq/l) 21 Anion Gap (0 - 20) 17 BUN (7 - 18 mg/dL) 14 Creatinine (0.6 - 1.3 mg/dL) 0.9 POC Creatinine (0.8 - 1.3 mg/dL) 0.7 L 0.6 L 0. 7 L 0.7 L Glomerular Filtr Rate (70 - 80) 84.7 H Glucose (70 - 110 mg/dL) 162 H POC Glucose (mg/dL) (70 - 110 MG/DL) 146 H 180 H 183 H 170 H Calcium (8.0 - 10.5 mg/dL) 7.8 L Magnesium (1.80 - 2.40 mg/dL) 3.24 H 06/03 06/03 1332 1234 Chemistry POC Creatinine (0.8 - 1.3 mg/dL) 0.6 L 0.8 POC Glucose (mg/dL) (70 - 110 MG/DL) 152 H 152 H Laboratory Tests 06/03 06/03 06/03 06/03 1621 1621 1518 1438 Coagulation INR (0.8 - 1.2) 1.4 H PTT ([place]) (25.0 - 39.5 Seconds) 43.0 H PT Patient/Control Mix (9.3 - 12.9 SECONDS) 15. 7 H Activated Coag Time (74 - 137 SEC) 155 H 606 H 648 H 06/03 06/03 06/03 1413 1334 1237 Coagulation Activated Coag Time (74 - 137 SEC) 456 H 841 H 149 H Laboratory Tests 06/04 06/03 0416 1621 Hematology WBC (4.5 - 11.0 x10 3/uL) 14.1 H 17.1 H RBC (4.00 - 5.60 x10 6/uL) 2.48 L 3.39 L Hgb (12.5 - 16.9 g/dL) 7.7 L 10.6 L Hct (37.5 - 50.7 %) 23.0 L 30.9 L MCV (81.0 - 99.0 fL) 92.7 91.2 MCH (27.0 - 33.0 pg) 31.0 31.3 MCHC (33.0 - 37.0 g/dL) 33.5 34.3 RDW (11.5 - 14.5 %) 13.2 12.8 Plt Count (150 - 400 x10 3/uL) 87 L 104 L MPV (7.0 - 9.0 fL) 11.6 H 10.5 H Neut % (Auto) (56.0 - 77.0 %) 84.6 H 78.2 H Lymph % (Auto) (14.0 - 32.0 %) 5.4 L 16.1 [place] % (Auto) (4.8 - 9.0 %) 9.4 H 3.9 L Eos % (Auto) (0.3 - 3.7 %) 0.0 L 0.8 Baso % (Auto) (0.0 - 2.0 %) 0.1 0.3 Neut # (Auto) (2.0 - 7.6 x10 3/uL) 11.92 H 13.4 0 H Lymph # (Auto) (1.0 - 3.8 x10 3/uL) 0.76 L 2.76 [place] # (Auto) (0.1 - 0.8 x10 3/uL) 1.33 H 0.67 Eos # (Auto) (0.0 - 0.2 x10 3/uL) 0.00 0.13 Baso # (Auto) (0.0 - 0.2 x10 3/uL) 0.02 0.05 Abs Immat Gran (auto) (0.00 - 0.03 x10 3/uL) 0. 07 H 0.12 H Add Manual Diff NO NO Immature Gran % (0.0 - 2.0 %) 0.5 0.7 Nucleated RBC % (0 - 0 %) 0.0 0.0 Nucleated RBCs # (Man) (0.0 - 0.1 x10 3/uL) 0.0 0 0.00 Platelet Estimate (ADEQUATE THOUSAND) 80-100 Plt Morphology Comment NORMAL Laboratory Tests 06/04/23 0416: [Embedded Image Not Available] 06/03/23 2128: [Embedded Image Not Available] 06/03/23 1621: [Embedded Image Not Available] Radiology data Recent Impressions: RADIOLOGY - XR CHEST 1 V 06/03 1709 Report Impression - Status: SIGNED Entered: 06/03/2023 1820 IMPRESSION: Postoperative change with minimal vascular conge stion. Impression By: Brent Henderson M.D . RADIOLOGY - XR CHEST 1 V 06/04 0509 Report Impression - Status: SIGNED Entered: 06/04/2023 0936 IMPRESSION: 1. Mildly increased bibasilar airspace opacities . Differential considerations include aspiration, atelectasis v ersus pneumonia. 2. Lines and tubes as above. Impression By: [email or web address] - Lars Peraza Results: labs reviewed, vital signs reviewed, rh ythm personally rev'd, x-ray personally reviewed, current med profile rev'd Diagnosis, Assessment Plan Free text A P: Problem List: Severe mitral valve prolapse Myxomatous anterior leaflet Paroxysmal atrial fibrillation status post faile d ablation Acute blood loss anemia Elective ventilator dependence Acute pulmonary insufficiency following major ca rdiothoracic surgery History of hypothyroidism Assessment and Plan: Patient was received in CVICU room #2202 this af [facility]. Patient was found to have severe MR with paroxysmal atrial fibrillati on. He underwent mitral valve replacement with 29 Mitris along with isolation of left atrial appendage. Patient had prolapsed mitral valve along with my xomatous thickened anterior leaflet. He is status post mitral valve replacem ent. Patient was low on intravascular volume with a CVP measuring 6 to 7 cm. Received IV fluid bolus. Normal EF. At the end of the procedure there was no evidence of mitral regurgitation or paravalvular leak. Mohini ent received 450 mL of Cell Saver, 1 L of IV fluids, no autologous transfusion was given. Patient received 25% albumin 1 infusion. Had 3 and mL of EBL and 900 mL of ur ine output. Upon transfer to the CVICU patient is on norepinephrine at 2 mcg, epinephrine at 2 and vasopressin at 0.04 units. Patient is currently on assist-control at 20 tidal volume 500 PEEP of 5 and 50% FiO2. Latest blood gas shows a pH of 7.35, pCO2 of 38 mmHg, pO2 of 235 mmHg and bicarbonate of 21 m mol with base excess at -4.3. Latest blood glucose 165 mg/ dL, creatinine 0.72 mg/dL, hemoglobin 9.8 g/dL with hematocrit of 29%. Potassium is 3.6 and is being repleted with 20 mg of potassium chloride and ionized calcium is 1.15. Patient will receive 1 amp of sodium bicarbonate for mild metabolic acidosis. Vital signs are stable with a heart rate of 80 sinus rhyth m, blood pressure is 126/74 mmHg, PA pressures 37/22 mmHg and respiratory rate 24 with pulse ox of 10 0%. Odin Zeng is a 83-year-old gentleman with a [facility] medical history of atrial fibrillation, status post failed ablation in the past, on Eliquis therapy, diabetes, hypothyroid, who was found to have sig nificant mitral valve regurgitation with a flail mitral valve leaflet. He is followed by his custom grinder Dr. Zaidi. He denies any history of stroke, denies any history of chest pains. He is on Eliquis therapy for his at rial fibrillation. Patient admitted for mitral valve replacement for flail mitral valve leaflet. Patient underwent MVR on 06/03/2023. Surgery was uneventf ul. Patient is orally intubated and on mechanical ventilation. Patient is postop day 0 after mitral valve repla cement Was evaluated for severe mitral regurgitation fr om mitral valve prolapse Myxomatous degeneration of the anterior leaflet Low CVP to begin with Patient was volume responsive and was given uzair talloids boluses Normal EF Mildly elevated PA pressures in the 40s Current PA pressure is 37/22 mmHg Vital signs are stable with a heart rate of 80 in sinus rhythm, blood pressure is 126/74 mmHg At the end of surgery no mitral regurgitation or paravalvular leak Patient is on vasopressor [place] pport with Epinephrine and Nor-epinephrine at 2 mics and vasopressin at 0.04 units Mild metabolic acidosis with a pH of 7.35, PCO2 of 38 mmHg, PO2 of 235 mmHg and bicarbonate of 21 mmol with base excess at -4.3 Give 1 amp of sodium bicarbonate INS calcium is 1.15 while the potassium is 3.6 m mol Give 20 mg of potassium chloride Glycemic control adequate at 165 mg/dL Creatinine is normal at 0.72 mg/dL Patient has acute blood loss anemia with a hemoglobin of 9.8 g/dL and hematocrit of 29% Does not meet transfusion threshold at this time Currently on assist-control at 20 tidal volume 5 00 PEEP of 5 and 50% FiO2 Patient is unresponsive at this time Should be fast-track extubation SCDs for DVT prophylaxis Yosi Gomez MD FACP [facility] 06/03/2023 5.23 PM 06/04/2023 Patient seen and examined in CVICU room #2202 this morning and discussed during MDR as well as CT surgery rounds. Patient is pos top day 1 after mitral valve replacement. Major issues are hemoglobin of 7.7 g/dL this morning along with hypotension. Patient is being supported with nor epinephrine at 2 mcg. PA pressure 38/23 mmHg and oxygen saturation is 95% on room air. Patient will be transfused 1 unit of packed red cell. Urine outp ut is 30 mm/h. Cardiac index is 2.4. Patient is 100% paced at 79 bpm. Underly ing rhythm is junctional at 50. He is awake alert x4. Chest tube output 195 and 120 mL respectively and both chest tubes are going to be retaine d today. He is on insulin at 2 units/h and glucose range is 120 - 150 mg/dL. Patient wi ll be started on insulin sliding scale low intensity coverage before meal s and at bedtime and insulin drip will be discontinued. Patient is ambulating with physical therapy, tolerating oral diet, did not have bowel movemen t yet. Hilario catheter is retained. Patient was received in CVICU room #2202 on 06/03. He underwent mitral valve replacement. Patient was found to have sev ere MR with paroxysmal atrial fibrillation. He underwent mitral valve replacem ent with 29 Mitris along with isolation of left atrial appendage. Patient had prolapsed mitral valve along with myxomatous thickened anterior leaflet. He i s status post mitral valve replacement. Patient was low on intravas cular volume with a CVP measuring 6 to 7 cm. Received IV fluid bolus. Normal EF. At the end of the procedure there was no evidence of mitral regurgitation or paravalvular leak. Patient received 450 mL of Cell Saver, 1 L of IV fluids, no autol ogous transfusion was given. Patient received 25% albumin 1 infusion. Had 3 a nd mL of EBL and 900 mL of urine output. Upon transfer to the CVICU patient is on norepinephrine at 2 mcg, epinephrine at 2 and vasopre ssin at 0.04 units. Patient is currently on assist- control at 20 tidal volume 5 00 PEEP of 5 and 50% FiO2. Latest blood gas shows a pH of 7.35, pCO2 of 38 mmHg, pO2 of 235 mmHg and bicarbonate of 21 mmol with base excess at -4.3. Latest blood glucose 165 mg /dL, creatinine 0.72 mg/dL, hemoglobin 9.8 g/dL with hematocrit of 29%. Pota ssium is 3.6 and is being repleted with 20 mg of potassium chlorid e and ionized calcium is 1.15. Patient will receive 1 amp of sodium bicarbonate for mil d metabolic acidosis. Vital signs are stable with a hear t rate of 80 sinus rhythm, blood pressure is 126/74 mmHg, PA pressures 37/22 mmHg and respiratory ra te 24 with pulse ox of 100%. Odin Zeng is a 83-year-old gentleman with a [facility] medical history of atrial fibrillation, status post failed ablation in the past, on Eliquis therapy, diabetes, hypothyroid, who was found to have sig nificant mitral valve regurgitation with a flail mitral valve leaflet. He is followed by his custom grinder Dr. Zaidi. He denies any history of stroke, denies any history of chest pains. He is on Eliquis therapy for his at rial fibrillation. Patient admitted for mitral valve replacement for flail mitral valve leaflet. Patient underwent MVR on 06/03/2023. Surgery was uneventf . Patient is orally intubated and on mechanical ventilation. Patient was extubated in a timely fashion. Patient is postop day 1 after MVR (mitral valve replacement) No acute events reported overnight Patient does have soft blood pressure and hemogl obin of 7.7 g/dL He will be transfused 1 unit of packed red cell Urine output is 30 mL/h Monitor urine output and BMP Creatinine is 1.0 mg/dL Patient is 100% paced at 80 bpm Underlying rhythm is junctional at 50 bpm Cardiac index is 2.4 Patient is on room air at 95% PA pressures 38/23 mmHg Glycemic control with insulin drip at 2 units/h Latest blood glucose 162 mg/dL Blood pressure is soft and is being supported wi th norepinephrine at 2 mcg Expect to improve blood pressure with vo lume pentecostal with 1 unit of packed red cell transfusion Chest tube output is 195 mL and 120 mL respectiv jaren and both chest tubes are going to be retained for another 24 hours Hilario catheter is going to be retained Patient is ambulating with physical therapy and tolerating oral diet No bowel movement yet Patient is on bowel regimen SCDs for DVT prophylaxis Yosi Gomez MD FACP [facility] 06/04/2023 11.28 AM Consultants: anesthesiology, cardiology, cardiov ascular surgery, critical/ paper testing supervisor, hospitalist Electronically Signed by Yosi Gomez MD on 05/18 07/10 at 1130 RPT #:[id number] END OF REPORT 2023-06-04 10:09:00-00:00 [facility]ACL [facility] ([facility]) Cardiology Consultation REPORT#:[id number] REPORT STATUS: Signed DATE:06/04/23 TIME: 1009 PATIENT: ODIN ZENG UNIT #: [id number] ROOM/BED: [place] [id number] : 40 AGE: 83 SEX: M ATTEND: Ramo Sanchez MD ADM AUTHOR: Kathe Bradshaw GIFT WRAPPER * ALL edits or amendments must be made on the [employer]/computer document * Kathe Bradshaw 06/04/23 1009: History of Present Illness HPI Requesting Clinician: Dr. Sanchez Reason for consult: mitral valve regurgitation PCP: PCP: Mitesh Muhammad MD HPI: Cardiology consultation s/p mitral valve replace ment on this 83 YO gentleman with PMHx of paroxysmal atri al fibrillation, DM, hypothyrodism who was found to have severe mitral valve prolapse . He i s seen post-op. He is extubated, awake and alert. On small dose of Levophed gtt with ac ceptable hemodynamics. Hx Obtained From Primary care provider, Prior vt dical records History - Adult longitudinal Additional medical history: 1. Atrial fibrillation on Eliquis 2. Hypothyroidism 3. Diabetes mellitus Additional surgical history: 1. afib ablation Additional family history: non contributory Alcohol use: Denies EtOH use Drug use: Denies recreational drugs Smoking status for patients 13 years old or olde r: Former Smoker Packs per day: 3 Years smoked: 18 Pack years: 54 Home medications: Home Medications: POTASSIUM CHLORIDE ER (MICRO-K) 8 MEQ PO DAILY METOPROLOL TARTRATE (LOPRESSOR) 50 MG PO BID FUROSEMIDE (LASIX) 40 MG PO DAILY LEVOTHYROXINE (SYNTHROID) 75 MCG PO DAILY TAMSULOSIN ER (FLOMAX) 0.4 MG PO DAILY APIXABAN (ELIQUIS) 5 MG PO DAILY metFORMIN (GLUCOPHAGE) 500 MG PO DAILY Allergies: Coded Allergies: No Known Allergies (05/17/23) Ambulatory status: Independent Review of Systems Constitutional: generalized weakness. Respiratory: Denies: SOB. Cardiovascular: Denies: chest pain. GI: Denies: abdominal pain, nausea, vomiting. : Denies: dysuria. Objective General VS/I O: Vital Signs Date Temp Pulse Resp B/P B/P Mean Pulse Ox FiO 2 06/03-06/04 35.5-38.3 55-80 8-27 89-165/31-73 4 6-97 78-100 3-50 24 hour I O ending at 0700: 06/04 0700 06/03 1900 Intake Total 1926.00 2230.40 Output Total 1010 1955 Balance 916.00 275.40 Intake, IV 1686.00 1050.40 Intake, Oral 240 Intake, Other 1180 Output, Chest 285 155 Tube Drainage Output, 300 Estimated Blood Loss Output, Other 900 Output, Urine 725 600 Patient 76.5 kg Weight Weight Bed scale Measurement Method PATIENT WEIGHT: Weight (lb): 168 Weight (oz): 10.46 Weight (kg): 76.500 Medications: Active Meds + DC'd Last 24 Hrs Ipratropium [place] (ATROVENT) 500 MCG RTQ2H PRN PRN INH Cyanocobalamin (Vitamin B-12 500 mcg tab) 500 MC G DAILY PO Ferrous Sulfate (FERROUS SULFATE) 325 MG DAILY P O Bisacodyl (DULCOLAX) 10 MG ONCE PRN RECTAL Magnesium Hydroxide (MILK OF MAGNESIA) 30 ML ONC E PRN PO Atorvastatin Calcium (LIPITOR) 40 MG 2100 PO Polyethylene Glycol (MIRALAX) 17 GM DAILY PO Tamsulosin HCl (Flomax 0.4 mg) 0.4 MG PC BK PO Levothyroxine Sodium (Synthroid) 75 MCG DAILY 06 00 PO Albumin Human (ALBUMINAR 5% 12.5GM/250ML) 250 ML ONCE ONE IV (DC) Aspirin (ASPIRIN) 81 MG DAILY PO Amiodarone HCl (CORDARONE) 200 MG TID PO Docusate Sodium (COLACE) 100 MG BID PO Gabapentin (NEURONTIN) 200 MG BID PO Metoprolol Tartrate (LOPRESSOR) 12.5 MG Q12HR PO Mupirocin (BACTROBAN 2% 22 GM OINTMENT) 1 APPLIC BID NASAL Sennosides (Senna Lax 8.6 MG TABLET) 17.2 MG BED TIME PO Calcium Gluconate (Calcium Gluconate 1 GM/NS 50 mL (B2)) 50 ML ONCE ONE IV (DC) Potassium Chloride (KCL 20MEQ/SWFI 100ML) 100 ML ONCE ONE IV (DC) Sodium Bicarbonate (SODIUM BICARBONATE) 50 MEQ O NCE ONE IV (DC) Furosemide (LASIX 20MG INJ) 10 MG ONCE ONE IV (D C) Albumin Human (ALBUMINAR-25%) 50 ML .STK-MED ONE IV (DC) Vasopressin (VASOSTRICT) 0 .STK-MED ONE .ROUTE ( DC) Ipratropium [place] (ATROVENT) 500 MCG RTQ4H INH Acetaminophen (TYLENOL) 650 MG Q4H PRN PRN PO Acetaminophen (TYLENOL) 650 MG Q4H PRN PRN RECTA L Albumin Human (ALBUMINAR 25%) 25 GM ASDIR PRN IV Calcium Chloride (CALCIUM CHLORIDE) 1 GM ASDIR P RN IV Cefazolin Sodium (KEFZOL OR ANCEF) 3 GM ONCE ONE IV Sodium Chloride (SODIUM CHLORIDE 0.9%) 250 ML Dextrose/Water (DEXTROSE 10% IN WATER) 125 ML DIR PRN IV (CKD) Dextrose/Water (DEXTROSE 10% IN WATER) 250 ML DIR PRN IV (CKD) Epinephrine (ADRENALIN CHLORIDE) 4 MG ASDIR IV Dextrose/Water (DEXTROSE 5% WATER) 246 ML Glucagon (GLUCAGON) 1 MG ASDIR PRN IM Insulin Human Regular (HumuLIN R) 100 UNIT ASDIR IV (CKD) Sodium Chloride (SODIUM CHLORIDE 0.9%) 99 ML Magnesium Sulfate (MAGNESIUM SULFATE 4GM/SWFI 10 0ML) 100 ML ASDIR PRN IV Magnesium Sulfate (MAGNESIUM SULFATE 2GM/SWFI 50 ML) 50 ML ASDIR PRN IV Magnesium Sulfate/Dextrose (MAGNESIUM SULFATE 1G M/D5W 100ML) 100 ML ASDIR PRN IV Morphine Sulfate (morphine SULFATE) 4 MG Q2H PRN PRN IV (DC) Nitroglycerin/Dextrose (NITROGLYCERIN 50,000MCG/ D5W 250ML) 250 ML ASDIR IV Norepinephrine Bitartrate (NOREPINEPHRINE 8 MG/N S 250 ML) 250 ML TITRATE IV Ondansetron HCl (ZOFRAN) 4 MG Q6H PRN PRN IV Oxycodone HCl (ROXICODONE) 5 MG Q4H PRN PRN PO Oxycodone HCl (ROXICODONE) 10 MG Q4H PRN PRN PO Potassium Chloride (KCL 20MEQ/SWFI 100ML) 100 ML ASDIR PRN IV Sodium Bicarbonate (SODIUM BICARBONATE) 50 MEQ A SDIR PRN IV Sodium Chloride (SODIUM CHLORIDE 0.9%) 1,000 ML .Q20H IV Sodium Chloride (SODIUM CHLORIDE 0.9%) 250 ML Q2 4H IV Cefazolin Sodium (KEFZOL OR ANCEF) 2 GM PREOP PRODUCT GRADER IV (DC) Insulin Human Lispro (HUMALOG) 0 Q4H PRN PRN SUB Q Vancomycin HCl (Vancomycin 1,250 mg Inj (B2)) 1, 250 MG PREOP ONCALL IV ( DC) Sodium Chloride (SODIUM CHLORIDE 0.9%) 250 ML Protamine Sulfate (PROTAMINE SULFATE) 0 .STK-MED ONE IV (DC) Fentanyl Citrate (SUBLIMAZE) 0 .STK-MED ONE IV ( DC) Propofol (DIPRIVAN 200MG/20ML INJECTION) 20 ML . STK-MED ONE IV (DC) Dexamethasone Sodium Phosphate (DECADRON) 0 .STK -MED ONE .ROUTE (DC) Lidocaine HCl (XYLOCAINE) 0 .STK-MED ONE .ROUTE (DC) Ondansetron HCl (ZOFRAN) 0 .STK-MED ONE .ROUTE ( DC) Rocuronium [place] (ZEMURON) 0 .STK-MED ONE IV ( DC) Sodium Chloride (SODIUM CHLORIDE) 20 ML ASDIR IV Sodium Chloride (SODIUM CHLORIDE 0.9%) 250 ML .S TK-MED ONE IV (DC) Vancomycin HCl (Vancomycin 1,250 mg Inj (B2)) 0 .STK-MED ONE IV (DC) Norepinephrine Bitartrate (LEVOPHED BITARTATE) 0 .STK-MED ONE IV (DC) Sodium Chloride (SODIUM CHLORIDE 0.9%) 250 ML .S TK-MED ONE IV (DC) Protamine Sulfate (PROTAMINE SULFATE) 0 .STK-MED ONE IV (DC) Cefazolin Sodium (KEFZOL OR ANCEF) 0 .STK-MED ON E .ROUTE (DC) Epinephrine HCl (EPINEPHrine 4 mg/D5W 250 mL) 25 0 ML .STK-MED ONE IV (DC ) Heparin Sodium (HEPARIN SODIUM) 0 .STK-MED ONE . ROUTE (DC) Insulin Human Regular (HumuLIN R 100 UNITS/NS 10 0ML) 100 ML .STK-MED ONE IV (DC) Nitroglycerin/Dextrose (NITROGLYCERIN 50,000MCG/ D5W 250ML) 250 ML .STK-MED ONE IV (DC) Ropivacaine (NAROPIN 0.5% 150 MG/30mL) 0 .STK-ME D ONE .ROUTE (DC) Sodium Chloride (SODIUM CHLORIDE 0.9%) 100 ML .S TK-MED ONE IV (DC) Aminocaproic Acid (AMICAR) 0 .STK-MED ONE IV (D C) Calcium Chloride (CALCIUM CHLORIDE) 0 .STK-MED O NE IV (DC) Magnesium Sulfate (MAGNESIUM SULFATE) 0 .STK-MED ONE .ROUTE (DC) Albumin Human (ALBUMINAR-25%) 100 ML .STK-MED ON E IV (DC) Heparin Sodium (HEPARIN SODIUM) 0 .STK-MED ONE . ROUTE (DC) Lidocaine HCl (XYLOCAINE IV) 0 .STK-MED ONE IV ( DC) Sodium Bicarbonate (SODIUM BICARBONATE) 0 .STK-M ED ONE IV (DC) Sodium Chloride (SODIUM CHLORIDE 0.9%) 100 ML .S TK-MED ONE IV (DC) Magnesium Sulfate (MAGNESIUM SULFATE) 0 .STK-ME D ONE IV (DC) Phenylephrine HCl (CRISTAL-SYNEPHRINE 10MG/ML AMP) 0 .STK-MED ONE .ROUTE (DC ) Acetaminophen (TYLENOL EXTRA STRENGTH) 0 .STK-ME D ONE .ROUTE (DC) Gabapentin (NEURONTIN) 0 .STK-MED ONE .ROUTE (DC ) Vancomycin HCl (VANCOMYCIN HCL) 1,000 MG Q12H IV (DC) Sodium Chloride (SODIUM CHLORIDE 0.9%) 250 ML Acetaminophen (TYLENOL EXTRA STRENGTH) 1,000 MG PREOP ONCALL PO (DC) Gabapentin (NEURONTIN) 200 MG PREOP ONCALL PO (D C) Lactated Ringer's (LACTATED RINGERS) 1,000 ML SD EOP ONCALL IV Lidocaine HCl (LIDOCAINE HCL/PF) 2 ML PREOP ONCA LL LOCAL Lidocaine HCl (LIDOCAINE HCL/PF) 2 ML PREOP ONCA LL LOCAL Sodium Chloride (SODIUM CHLORIDE 0.9%) 500 ML SD EOP ONCALL IV Sodium Chloride (SODIUM CHLORIDE 0.9%) 500 ML SD EOP ONCALL IV Sodium Chloride (SODIUM CHLORIDE 0.9%) 1,000 ML PREOP ONCALL IV Sodium Chloride (SODIUM CHLORIDE) 5 ML ASDIR PRN IV Sodium Chloride (SODIUM CHLORIDE) 10 ML ASDIR SD N IV Sodium Chloride (SODIUM CHLORIDE 0.9%) 250 ML A SDIR PRN IV Physical Exam General appearance: altered mental status, respi ratory support, no acute distress, no respiratory distress Neck: no JVD Cardiovascular: CV assessment: regular rate and rhythm Respiratory: decreased breath sounds, no distres s Abdomen: soft, non-tender, normal bowel sounds, no distention Genitourinary: urinary catheter, urine Lower extremity: LE assessment: no calf tenderness, no edema Musculoskeletal: normal inspection Neuro/CERTIFIED NURSES AIDE: alert Psychiatry: normal affect, normal mood Results Findings/Data: Laboratory Tests 06/04 06/03 06/03 06/03 6065 1737 9809 2010 Blood Gas Puncture Site Art Line swan Art Line swan O2 Saturation (90 - 100 %) 96.7 98.5 ABG pH (7.35 - 7.45) 7.415 7.358 ABG pCO2 (35.0 - 45 mmHg) 37.5 37.9 ABG pO2 (80 - 100.0 mmHg) 90.6 120.5 H ABG HCO3 (22.0 - 26.0 MMOL/L) 23.8 21.3 L ABG Total CO2 24.9 22.4 ABG Base Excess (-4.0 - 4.0 MMOL/L) -0.5 -4.2 L ABG Hematocrit (37.5 - 50.7 %) 22 L 27 L 28 L 2 7 L ABG Hemoglobin (12.5 - 16.9 G/DL) 7.5 L 9.1 L 9 .4 L 9.3 L Salas Test N/A N/A N/A N/A VBG pH (7.33 - 7.45) 7.307 L 7.273 L VBG pCO2 (43 - 47 mmHg) 47.6 H 47.6 H VBG pO2 (10 - 50 mmHG) 33.3 29.9 VBG HCO3 (22 - 27 MMOL/L) 23.6 22.0 POC VBG Total CO2 25.1 23.5 VBG O2 Saturation (60 - 80 %) 55.6 L 48.9 L VBG Base Excess (-4.0 - 4.0 MMOL/L) -2.5 -4.8 L VBG Temperature (F) 99.7 98.4 Sodium (134 - 147 mmol/L) 142 144 143 145 Potassium (3.4 - 5.0 mmol/L) 4.3 3.8 3.8 3.5 Chloride (100 - 108 mmol/L) 108 107 110 H 109 H Ionized Calcium (1.12 - 1.32 MMOL/L) 1.10 L 1.1 4 1.11 L 1.14 Lactic Acid (0.9 - 1.7 mmol/l) 3.8 H 6.9 *H 5.8 *H 8.2 *H Temperature (F) 100.6 99.1 O2 Delivery Device Cannula Cannula Cannula 3 Vent Mode PS 06/03 06/03 06/03 06/03 1825 1657 1614 1520 Blood Gas Puncture Site Art Line Art Line O2 Saturation (90 - 100 %) 99.7 99.8 100.0 100. 0 ABG pH (7.35 - 7.45) 7.401 7.357 7.355 7.397 ABG pCO2 (35.0 - 45 mmHg) 31.0 L 37.8 38.7 39.7 ABG pO2 (80 - 100.0 mmHg) 185.7 H 233.9 *H 573. 9 *H 381.5 *H ABG PO2/FiO2 Ratio (mm/Hg) 464.25 467.80 ABG HCO3 (22.0 - 26.0 MMOL/L) 19.3 L 21.3 L 21. 6 L 24.4 ABG Total CO2 20.3 22.5 22.8 25.6 ABG Base Excess (-4.0 - 4.0 -5.6 L -4.3 L -3.6 -0.4 MMOL/L) ABG Hematocrit (37.5 - 50.7 %) 29 L 29 L 28 L 2 7 L ABG Hemoglobin (12.5 - 16.9 G/DL) 9.8 L 9.8 L 9 .6 L 9.3 L Salas Test N/A N/A Sodium (134 - 147 mmol/L) 144 141 142 137 Potassium (3.4 - 5.0 mmol/L) 3.8 3.6 3.9 5.2 H Chloride (100 - 108 mmol/L) 111 H 109 H 109 H 1 05 Ionized Calcium (1.12 - 1.32 1.01 L 1.15 1.14 1 .00 L MMOL/L) Lactic Acid (0.9 - 1.7 mmol/l) 3.4 H 1.7 Temperature (F) 98 98 O2 Delivery Device Adult Vent Adult Vent Vent Mode CPAP/PS AC Vent Rate (/MIN) 20 FiO2 (%) 40 50 Tidal Volume (ml) 500 PEEP (cmH2O) 5 5 Pressure Support (cmH2O) 06/03 1436 1411 1332 1234 Blood Gas O2 Saturation (90 - 100 %) 100.0 100.0 100.0 96 .4 ABG pH (7.35 - 7.45) 7.422 7.553 *H 7.412 7.43 8 ABG pCO2 (35.0 - 45 mmHg) 39.6 31.2 L 35.5 38.1 ABG pO2 (80 - 100.0 mmHg) 431.8 *H 432.7 *H 610 .1 *H 81.6 ABG HCO3 (22.0 - 26.0 MMOL/L) 25.8 27.5 H 22.6 25.7 ABG Total CO2 27.0 28.4 23.7 26.9 ABG Base Excess (-4.0 - 4.0 MMOL/L) 1.3 5.1 H -1.6 1.6 ABG Hematocrit (37.5 - 50.7 %) 29 L 27 L 35 L 4 0 ABG Hemoglobin (12.5 - 16.9 G/DL) 9.7 L 9.3 L 1 2.0 L 13.5 Sodium (134 - 147 mmol/L) 137 139 140 139 Potassium (3.4 - 5.0 mmol/L) 5.3 H 5.8 H 3.5 3. 7 Chloride (100 - 108 mmol/L) 105 106 107 103 Ionized Calcium (1.12 - 1.32 MMOL/L) 1.03 L 0.9 9 L 1.13 1.23 Lactic Acid (0.9 - 1.7 mmol/l) 1.4 1.3 0.9 1.5 Laboratory Tests 06/04/18 0902 0858 0416 0415 0412 Chemistry Sodium (134 - 147 mEq/L) 144 Potassium (3.4 - 5.0 mEq/L) 4.3 Chloride (100 - 108 mEq/L) 110 H Carbon Dioxide (21 - 33 mEq/l) 24 Anion Gap (0 - 20) 15 BUN (7 - 18 mg/dL) 14 Creatinine (0.6 - 1.3 mg/dL) 1.0 POC Creatinine (0.8 - 1.3 mg/dL) 0.9 Glomerular Filtr Rate (70 - 80) 74.7 Glucose (70 - 110 mg/dL) 137 H POC Glucose (70 - 110 MG/DL) 151 H POC Glucose (mg/dL) (70 - 110 MG/DL) 138 H Lactic Acid (0.4 - 1.9 mmol/L) 4.6 *H 3.8 H Calcium (8.0 - 10.5 mg/dL) 7.9 L Magnesium (1.80 - 2.40 mg/dL) 2.36 Total Bilirubin (0.0 - 1.0 mg/dL) 0.50 Direct Bilirubin (0.0 - 0.30 MG/DL) 0.30 Indirect Bilirubin (MG/DL) 0.20 AST (15 - 37 IUnit/L) 61 H ALT (30 - 65 IUnit/L) 11 L Total Alk Phosphatase (20 - 125 IUnit/L) 19 L Total Protein (6.4 - 8.2 g/dL) 5.3 L Albumin (3.4 - 5.0 g/dL) 3.90 06/04 06/04 06/04 06/03 06/03 0212 0133 0007 2231 2128 Chemistry Sodium (134 - 147 mEq/L) 143 Potassium (3.4 - 5.0 mEq/L) 3.8 Chloride (100 - 108 mEq/L) 110 H Carbon Dioxide (21 - 33 mEq/l) 21 Anion Gap (0 - 20) 16 BUN (7 - 18 mg/dL) 14 Creatinine (0.6 - 1.3 mg/dL) 1.1 POC Creatinine (0.8 - 1.3 mg/dL) 0.9 Glomerular Filtr Rate (70 - 80) 66.6 L Glucose (70 - 110 mg/dL) 152 H POC Glucose (70 - 110 MG/DL) 129 H 130 H POC Glucose (mg/dL) (70 - 110 MG/DL) 146 H Lactic Acid (0.4 - 1.9 mmol/L) 5.3 *H Calcium (8.0 - 10.5 mg/dL) 8.4 Magnesium (1.80 - 2.40 mg/dL) 2.53 H 06/03 165 Chemistry POC Creatinine (0.8 - 1.3 mg/dL) 0.9 0.8 0.7 L 0.7 L POC Glucose (70 - 110 MG/DL) 131 H POC Glucose (mg/dL) (70 - 110 MG/DL) 155 H 137 H 144 H 165 H 06/03 06/03 06/03 06/03 06/03 1621 1614 1520 1436 1411 Chemistry Sodium (134 - 147 mEq/L) 143 Potassium (3.4 - 5.0 mEq/L) 3.7 Chloride (100 - 108 mEq/L) 109 H Carbon Dioxide (21 - 33 mEq/l) 21 Anion Gap (0 - 20) 17 BUN (7 - 18 mg/dL) 14 Creatinine (0.6 - 1.3 mg/dL) 0.9 POC Creatinine (0.8 - 1.3 mg/dL) 0.7 L 0.6 L 0. 7 L 0.7 L Glomerular Filtr Rate (70 - 80) 84.7 H Glucose (70 - 110 mg/dL) 162 H POC Glucose (mg/dL) (70 - 110 MG/DL) 146 H 180 H 183 H 170 H Calcium (8.0 - 10.5 mg/dL) 7.8 L Magnesium (1.80 - 2.40 mg/dL) 3.24 H 06/03 06/03 06/03 1332 1234 1029 Chemistry POC Creatinine (0.8 - 1.3 mg/dL) 0.6 L 0.8 POC Glucose (70 - 110 MG/DL) 159 H POC Glucose (mg/dL) (70 - 110 MG/DL) 152 H 152 H Laboratory Tests 06/03 06/03 06/03 06/03 06/03 1621 1621 1518 1438 1413 Coagulation INR (0.8 - 1.2) 1.4 H PTT (Juana) (25.0 - 39.5 Seconds) 43.0 H PT Patient/Control Mix (9.3 - 12.9 15.7 H SECONDS) Activated Coag Time (74 - 137 SEC) 155 H 606 H 648 H 456 H 06/03 06/03 1334 1237 Coagulation Activated Coag Time (74 - 137 SEC) 841 H 149 H Laboratory Tests 06/04 06/03 0416 1621 Hematology WBC (4.5 - 11.0 x10 3/uL) 14.1 H 17.1 H RBC (4.00 - 5.60 x10 6/uL) 2.48 L 3.39 L Hgb (12.5 - 16.9 g/dL) 7.7 L 10.6 L Hct (37.5 - 50.7 %) 23.0 L 30.9 L MCV (81.0 - 99.0 fL) 92.7 91.2 MCH (27.0 - 33.0 pg) 31.0 31.3 MCHC (33.0 - 37.0 g/dL) 33.5 34.3 RDW (11.5 - 14.5 %) 13.2 12.8 Plt Count (150 - 400 x10 3/uL) 87 L 104 L MPV (7.0 - 9.0 fL) 11.6 H 10.5 H Neut % (Auto) (56.0 - 77.0 %) 84.6 H 78.2 H Lymph % (Auto) (14.0 - 32.0 %) 5.4 L 16.1 [place] % (Auto) (4.8 - 9.0 %) 9.4 H 3.9 L Eos % (Auto) (0.3 - 3.7 %) 0.0 L 0.8 Baso % (Auto) (0.0 - 2.0 %) 0.1 0.3 Neut # (Auto) (2.0 - 7.6 x10 3/uL) 11.92 H 13.4 0 H Lymph # (Auto) (1.0 - 3.8 x10 3/uL) 0.76 L 2.76 [place] # (Auto) (0.1 - 0.8 x10 3/uL) 1.33 H 0.67 Eos # (Auto) (0.0 - 0.2 x10 3/uL) 0.00 0.13 Baso # (Auto) (0.0 - 0.2 x10 3/uL) 0.02 0.05 Abs Immat Gran (auto) (0.00 - 0.03 x10 3/uL) 0. 07 H 0.12 H Add Manual Diff NO NO Immature Gran % (0.0 - 2.0 %) 0.5 0.7 Nucleated RBC % (0 - 0 %) 0.0 0.0 Nucleated RBCs # (Man) (0.0 - 0.1 x10 3/uL) 0.0 0 0.00 Platelet Estimate (ADEQUATE THOUSAND) 80-100 Plt Morphology Comment NORMAL Laboratory Tests 06/04 06/03 06/03 0416 2128 1621 Chemistry Magnesium (1.80 - 2.40 mg/dL) 2.36 2.53 H 3.24 H Radiology Data: Recent Impressions: RADIOLOGY - XR CHEST 1 V 06/03 1709 Report Impression - Status: SIGNED Entered: 06/03/2023 1820 IMPRESSION: Postoperative change with minimal vascular conge stion. Impression By: Lars Reyes RADIOLOGY - XR CHEST 1 V 06/04 0509 Report Impression - Status: SIGNED Entered: 06/04/2023 0936 IMPRESSION: 1. Mildly increased bibasilar airspace opacities . Differential considerations include aspiration, atelectasis v ersus pneumonia. 2. Lines and tubes as above. Impression By: [email or web address] - Lars Peraza Results: labs reviewed, vital signs reviewed, [facility] personally rev'd Telemetry Interpretation: paced rhythm Diagnosis, Assessment Plan Problem List/A P: 1. Bioprosthetic mitral valve replacement, curr ent hospitalization 2. Atrial fibrillation Plan discussed with: patient, collaborating MD, nurse Free Text DxA P Notes Free Text DxA P Notes: Cardiology consultation s/p mitral valve replace ment on this 83 YO gentleman with PMHx of paroxysmal atri al fibrillation, DM, hypothyrodism who was found to have severe mitral valve prolapse . He i s seen post-op. He is extubated, awake and alert. On small dose of Levophed gtt with ac ceptable hemodynamics. 1. Severe mitral valve prolapse s/p Mitral Valve Replacement * extubated, awake and alert, on low dose levoph ed * post-op care per CTS 2. Atrial fibrillation s/p PVI and ALAA * continue amiodarone, metoprolol Appreciate the referral. Molina Diggs 06/06/23 1657: Attestations Physician Attestation Agree w/findings plan: I have seen and examined the pt, I Agree with e findings and plan as documented by Kathe Bradshaw. at 1517 Electronically Signed by Molina Diggs MD on at 1659 RPT #:[id number] END OF REPORT 2023-06-04 04:27:00-00:00 [id number] [place] [address] PATIENT NAME: ODIN ZENG ADMIT DATE: 06/03/23 ACCOUNT NO: [id number] ROOM NO: [facility] [place] AGE: 83 REPORT TYPE: eELECTROCARDIOGRAM REPORT SEX: M ADMITTING PHYSICIAN:Abiodun Sanchez MD ATTENDING PHYSICIAN:Abiodun Sanchez MD Order: [id number] Test Reason : P/S MVR Test Date/Time Stamp: SatJun 04 2023 04:27:23 Blood Pressure : / mmHG Vent. Rate : 076 BPM Atrial Rate : 076 BPM P-R Int : 248 ms QRS Dur : 066 ms QT Int : 440 ms P-R-T Axes : -76 022 049 degree s QTc Int : 495 ms Atrial-paced rhythm with prolonged AV conduction Prolonged QT Abnormal ECG When compared with ECG of 03-JUN-2023 17:08, No changes Confirmed by MD ROMULO, ENA ([id number]) on 06/04/20 9:14:45 PM Referred By: Avila Sanchez Confirmed by:ENA CROOK MD Electronically Signed by Ena Rai MD on 0 06/04/23 at 4231 PATIENT NAME: ODIN ZENG 1 2023-06-03 17:08:00-00:00 [id number] [address] PATIENT NAME: ODIN ZENG ADMIT DATE: 06/03/23 ACCOUNT NO: [id number] ROOM NO: [facility] [place] AGE: 83 REPORT TYPE: eELECTROCARDIOGRAM REPORT SEX: M ADMITTING PHYSICIAN:Abiodun Sanchez MD ATTENDING PHYSICIAN:Abiodun Sanchez MD Order: [id number] Test Reason : Cardiac Surgery Post Op Test Date/Time Stamp: SatJun 03 2023 17:08:26 Blood Pressure : / mmHG Vent. Rate : 047 BPM Atrial Rate : 000 BPM P-R Int : 000 ms QRS Dur : 086 ms QT Int : 434 ms P-R-T Axes : 000 -26 084 degree s QTc Int : 384 ms Junctional rhythm with occasional premature vent ricular complexes Low voltage QRS Nonspecific ST and T wave abnormality Abnormal ECG When compared with ECG of 31-MAY-2023 15:12, No changes Confirmed by MD ROMULO, ENA ([id number]) on 06/03/20 9:31:25 PM Referred By: Avila Sanchez Confirmed by:ENA CROOK MD Electronically Signed by Ena Rai MD on 0 06/03/23 at 2131 PATIENT NAME: ODIN ZENG 1 2023-06-03 16:59:00-00:00 [facility] ([facility]) Critical Care Consult Note REPORT#:[id number] REPORT STATUS: Signed DATE:06/03/23 TIME: 1658 PATIENT: ODIN ZENG UNIT #: [id number] ROOM[address]BED: [address] : [address] AGE: 83 SEX: M ATTEND: Ramo Sanchez MD ADM AUTHOR: Yosi Gomez MD * ALL edits or amendments must be made on the [employer]/computer document * History of Present Illness HPI Requesting clinician: Dr Gianfranco Sanchez Reason for consult: 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 Patient was found to have severe MR with paroxysmal atrial fibrillati on. He underwent mitral valve replacement with 29 Mitris along with isolation of left atrial appendage. Patient had prolapsed mitral valve along with my xomatous thickened anterior leaflet. He is status post mitral valve replacem ent. Patient was low on intravascular volume with a CVP measuring 6 to 7 cm. Received IV fluid bolus. Normal EF. At the end of the procedure there was no evidence of mitral regurgitation or paravalvular leak. Mohini ent received 450 mL of Cell Saver, 1 L of IV fluids, no autologous transfusion was given. Patient received 25% albumin 1 infusion. Had 3 and mL of EBL and 900 mL of ur ine output. Upon transfer to the CVICU patient is on norepinephrine at 2 mcg, epinephrine at 2 and vasopressin at 0.04 units. Patient is currently on assist-control at 20 tidal volume 500 PEEP of 5 and 50% FiO2. Latest blood gas shows a pH of 7.35, pCO2 of 38 mmHg, pO2 of 235 mmHg and bicarbonate of 21 m mol with base excess at -4.3. Latest blood glucose 165 mg/ dL, creatinine 0.72 mg/dL, hemoglobin 9.8 g/dL with hematocrit of 29%. Potassium is 3.6 and is being repleted with 20 mg of potassium chloride and ionized calcium is 1.15. Patient will receive 1 amp of sodium bicarbonate for mild metabolic acidosis. Vital signs are stable with a heart rate of 80 sinus rhyth m, blood pressure is 126/74 mmHg, PA pressures 37/22 mmHg and respiratory rate 24 with pulse ox of 10 0%. Odin Zeng is a 83-year-old gentleman with a [facility] medical history of atrial fibrillation, status post failed ablation in the past, on Eliquis therapy, diabetes, hypothyroid, who was found to have sig nificant mitral valve regurgitation with a flail mitral valve leaflet. He is followed by his custom grinder Dr. Zaidi. He denies any history of stroke, denies any history of chest pains. He is on Eliquis therapy for his at rial fibrillation. Patient admitted for mitral valve replacement for flail mitral valve leaflet. Patient underwent MVR on 06/03/2023. Surgery was uneventf ul. Patient is orally intubated and on mechanical ventilation. History - Adult longitudinal Smoking status for patients 13 years old or olde r: Former Smoker Packs per day: 3 Years smoked: 18 Pack years: 54 Medications: Home Medications: Medication Dose/Rte/Freq Days Qty Entered Last Max Daily Dose Reviewed POTASSIUM CHLORIDE ER 8 MEQ PO DAILY 05/17/23 0 06/03/23 (MICRO-K) 1233 1120 Strength: 8 MEQ CAP.ER METOPROLOL TARTRATE 50 MG PO BID 05/17/2306/03 (LOPRESSOR) 1234 1120 Strength: 50 MG TAB FUROSEMIDE (LASIX) 40 MG PO DAILY 05/17/2305/18 Strength: 40 MG TAB 1235 1120 LEVOTHYROXINE 75 MCG PO DAILY 05/17/23 3 (SYNTHROID) 1235 1120 Strength: 75 MCG TAB TAMSULOSIN ER (FLOMAX) 0.4 MG PO DAILY 05/17/23 06/03/23 Strength: 0.4 MG CAP.SR.24H 1241 1120 APIXABAN (ELIQUIS) 5 MG PO DAILY 05/17/2306/03 Strength: 5 MG TAB 1234 1120 metFORMIN (GLUCOPHAGE) 500 MG PO DAILY 05/17/23 06/03/23 Strength: 500 MG TAB 1235 1120 Current Hospital Medications: Anti-Infective Agents Sig/Stephanie Start time Last Medication Dose Route Stop Time Status Admin Cefazolin Sodium 3 GM ONCE ONE 06/03 1530 AC (KEFZOL OR ANCEF) IV 06/04 1129 1711 Sodium Chloride 250 ML (SODIUM CHLORIDE 0.9%) Cefazolin Sodium 2 GM PREOP ONCALL 06/03 1400 D C (KEFZOL OR ANCEF) IV 06/10 1359 Vancomycin HCl 1,250 MG PREOP ONCALL 06/03 1400 DC (Vancomycin 1,250 mg IV 06/10 1359 Inj (B2)) Sodium Chloride 250 ML (SODIUM CHLORIDE 0.9%) Vancomycin HCl 0 .STK-MED ONE 06/03 1142 DC (Vancomycin 1,250 mg IV Inj (B2)) Cefazolin Sodium 0 .STK-MED ONE 06/03 1137 DC (KEFZOL OR ANCEF) .ROUTE Vancomycin HCl 1,000 MG Q12H 06/03 0130 DC (VANCOMYCIN HCL) IV 06/03 1429 Sodium Chloride 250 ML (SODIUM CHLORIDE 0.9%) Autonomic Drugs Sig/Stephanie Start time Last Medication Dose Route Stop Time Status Admin Ipratropium [place] 500 MCG RTQ2H PRN PRN 06/06 1521 AC (ATROVENT) INH 07/06 1520 Ipratropium [place] 500 MCG RTQ4H 06/03 1600 AC 06/03 (ATROVENT) INH 06/06 1521 1656 Epinephrine 4 MG ASDIR 06/03 1530 AC (ADRENALIN CHLORIDE) IV 07/03 1529 Dextrose/Water 246 ML (DEXTROSE 5% WATER) Norepinephrine 250 ML TITRATE 06/03 1530 AC Bitartrate IV 07/03 1529 (NOREPINEPHRINE 8 MG/ NS 250 ML) Rocuronium [place] 0 .STK-MED ONE 06/03 1150 DC (ZEMURON) IV Norepinephrine 0 .STK-MED ONE 06/03 1140 DC Bitartrate IV (LEVOPHED BITARTATE) Epinephrine HCl 250 ML .STK-MED ONE 06/03 1136 DC (EPINEPHrine 4 mg/ IV D5W 250 mL) Phenylephrine HCl 0 .STK-MED ONE 06/03 1113 DC (CRISTAL-SYNEPHRINE 10MG/ .ROUTE ML AMP) Blood Derivatives Sig/Stephanie Start time Last Medication Dose Route Stop Time Status Admin Albumin Human 50 ML .STK-MED ONE 06/03 1643 DC (ALBUMINAR-25%) IV Albumin Human 25 GM ASDIR PRN 06/03 1530 AC (ALBUMINAR 25%) IV 06/04 1521 Albumin Human 100 ML .STK-MED ONE 06/03 1114 DC (ALBUMINAR-25%) IV Blood Formation,Coagulation Sig/Stephanie Start time Last Medication Dose Route Stop Time Status Admin Ferrous Sulfate 325 MG DAILY 06/06 0900 AC (FERROUS SULFATE) PO 07/06 0859 Protamine Sulfate 0 .STK-MED ONE 06/03 1351 DC (PROTAMINE SULFATE) IV Protamine Sulfate 0 .STK-MED ONE 06/03 1138 DC (PROTAMINE SULFATE) IV Heparin Sodium 0 .STK-MED ONE 06/03 1136 DC (HEPARIN SODIUM) .ROUTE Aminocaproic Acid 0 .STK-MED ONE 06/03 1135 DC (AMICAR) IV Heparin Sodium 0 .STK-MED ONE 06/03 1114 DC (HEPARIN SODIUM) .ROUTE Cardiovascular Drugs Sig/Stephanie Start time Last Medication Dose Route Stop Time Status Admin Atorvastatin Calcium 40 MG 06/04 AC (LIPITOR) PO 07/04 2059 Amiodarone HCl 200 MG TID 06/03 2100 AC (CORDARONE) PO 07/03 2059 Metoprolol Tartrate 12.5 MG Q12HR 06/03 2100 AC (LOPRESSOR) PO 07/03 205 Nitroglycerin/ 250 ML ASDIR 06/03 1530 AC Dextrose IV 07/03 1529 (NITROGLYCERIN 50,000MCG/D5W 250ML) Lidocaine HCl 0 .STK-MED ONE 06/03 1150 DC (XYLOCAINE) .ROUTE Nitroglycerin/ 250 ML .STK-MED ONE 06/03 1136 D C Dextrose IV (NITROGLYCERIN 50,000MCG/D5W 250ML) Lidocaine HCl 0 .STK-MED ONE 06/03 1114 DC (XYLOCAINE IV) IV Lidocaine HCl 2 ML PREOP ONCALL 05/31 1615 AC (LIDOCAINE HCL/PF) LOCAL 06/30 2359 Lidocaine HCl 2 ML PREOP ONCALL 05/31 1615 AC (LIDOCAINE HCL/PF) LOCAL 06/30 2359 Central Nervous System Agents Sig/Stephanie Start time Last Medication Dose Route Stop Time Status Admin Aspirin 81 MG DAILY 06/03 2121 AC (ASPIRIN) PO 07/03 2120 Gabapentin 200 MG BID 06/03 2100 AC (NEURONTIN) PO 07/03 205 Acetaminophen 650 MG Q4H PRN PRN 06/03 1530 AC (TYLENOL) PO 07/03 1529 Acetaminophen 650 MG Q4H PRN PRN 06/03 1530 AC (TYLENOL) RECTAL 07/03 1529 Magnesium Sulfate 100 ML ASDIR PRN 06/03 1530 A C (MAGNESIUM SULFATE IV 07/03 1529 4GM/SWFI 100ML) Magnesium Sulfate 50 ML ASDIR PRN 06/03 1530 AC (MAGNESIUM SULFATE IV 07/03 1529 2GM/SWFI 50ML) Magnesium Sulfate/ 100 ML ASDIR PRN 06/03 1530 AC Dextrose IV 07/03 1529 (MAGNESIUM SULFATE 1GM/D5W 100ML) Morphine Sulfate 4 MG Q2H PRN PRN 06/03 1530 A C (morphine SULFATE) IV 06/08 1529 Oxycodone HCl 5 MG Q4H PRN PRN 06/03 1530 AC (ROXICODONE) PO 06/08 1529 Oxycodone HCl 10 MG Q4H PRN PRN 06/03 1530 AC (ROXICODONE) PO 06/08 1529 Fentanyl Citrate 0 .STK-MED ONE 06/03 1231 DC (SUBLIMAZE) IV Propofol 20 ML .STK-MED ONE 06/03 1231 DC (DIPRIVAN 200MG/20ML IV INJECTION) Magnesium Sulfate 0 .STK-MED ONE 06/03 1135 DC (MAGNESIUM SULFATE) .ROUTE Magnesium Sulfate 0 .STK-MED ONE 06/03 1113 DC (MAGNESIUM SULFATE) IV Acetaminophen 0 .STK-MED ONE 06/03 1045 DC (TYLENOL EXTRA .ROUTE STRENGTH) Gabapentin 0 .STK-MED ONE 06/03 1045 DC (NEURONTIN) .ROUTE Acetaminophen 1,000 MG PREOP ONCALL 05/31 1615 DC 06/03 (TYLENOL EXTRA PO 06/30 2359 1050 STRENGTH) Gabapentin 200 MG PREOP ONCALL 05/31 1615 DC (NEURONTIN) PO 06/30 2359 1050 Electrolytic, Caloric, And Jagdish Sig/Stephanie Start time Last Medication Dose Route Stop Time Status Admin Furosemide 10 MG ONCE ONE 06/03 1715 AC (LASIX 20MG INJ) IV 06/03 1716 Calcium Chloride 1 GM ASDIR PRN 06/03 1530 AC (CALCIUM CHLORIDE) IV 07/03 1529 Dextrose/Water 125 ML ASDIR PRN 06/03 1530 CKD (DEXTROSE 10% IN IV 07/03 152 WATER) Dextrose/Water 250 ML ASDIR PRN 06/03 1530 CKD (DEXTROSE 10% IN IV 07/03 152 WATER) Potassium Chloride 100 ML ASDIR PRN 06/03 1530 AC (KCL 20MEQ/SWFI IV 07/03 1529 100ML) Sodium Bicarbonate 50 MEQ ASDIR PRN 06/03 1530 AC (SODIUM BICARBONATE) IV 07/03 1529 Sodium Chloride 1,000 ML .Q20H 06/03 1530 AC (SODIUM CHLORIDE IV 07/03 1529 0.9%) Sodium Chloride 250 ML Q24H 06/03 1530 AC (SODIUM CHLORIDE IV 07/03 1529 0.9%) Sodium Chloride 20 ML ASDIR 06/03 1145 AC (SODIUM CHLORIDE) IV 07/03 1144 Sodium Chloride 250 ML .[facility] ONE 06/03 1142 DC (SODIUM CHLORIDE IV 0.9%) Sodium Chloride 250 ML .[facility] ONE 06/03 1140 DC (SODIUM CHLORIDE IV 0.9%) Sodium Chloride [address] ONE 06/03 1136 DC (SODIUM CHLORIDE IV 0.9%) Calcium Chloride 0 .[facility] ONE 06/03 1135 DC (CALCIUM CHLORIDE) IV Sodium Bicarbonate 0 .[facility] ONE 06/03 1114 D C (SODIUM BICARBONATE) IV Sodium Chloride [address] ONE 06/03 1114 DC (SODIUM CHLORIDE IV 0.9%) Lactated Ringer's 1,000 ML PREOP ONCALL 05/31 1 615 AC (LACTATED RINGERS) IV 06/30 2359 Sodium Chloride 500 ML PREOP ONCALL 05/31 1615 AC (SODIUM CHLORIDE IV 06/30 2359 0.9%) Sodium Chloride 500 ML PREOP ONCALL 05/31 1615 AC (SODIUM CHLORIDE IV 06/30 2359 0.9%) Sodium Chloride 1,000 ML PREOP ONCALL 05/31 161 5 AC (SODIUM CHLORIDE IV 06/30 2359 0.9%) Sodium Chloride 5 ML ASDIR PRN 05/31 1615 AC (SODIUM CHLORIDE) IV 06/30 1614 Sodium Chloride 10 ML ASDIR PRN 05/31 1615 AC (SODIUM CHLORIDE) IV 06/30 1614 Sodium Chloride 250 ML ASDIR PRN 05/31 1615 AC (SODIUM CHLORIDE IV 06/30 1614 0.9%) Eye, Ear, Nose And Throat (Een Sig/Stephanie Start time Last Medication Dose Route Stop Time Status Admin Dexamethasone Sodium 0 .[facility] ONE 06/03 1150 DC Phosphate .ROUTE (DECADRON) Gastrointestinal Drugs Sig/Stephanie Start time Last Medication Dose Route Stop Time Status Admin Bisacodyl 10 MG ONCE PRN 06/05 1200 AC (DULCOLAX) RECTAL 07/05 1159 Magnesium Hydroxide 30 ML ONCE PRN 06/05 1200 A C (MILK OF MAGNESIA) PO Polyethylene Glycol 17 GM DAILY 06/04 0900 AC (MIRALAX) PO 07/04 0859 Docusate Sodium 100 MG BID 06/03 2100 AC (COLACE) PO 07/03 2059 Sennosides 17.2 MG BEDTIME 06/03 2100 AC (Senna Lax 8.6 MG PO 07/03 2059 TABLET) Ondansetron HCl 4 MG Q6H PRN PRN 06/03 1530 AC (ZOFRAN) IV 07/03 1529 Ondansetron HCl 0 .STK-MED ONE 06/03 1150 DC (ZOFRAN) .ROUTE Hormones And Synthetic Substit Sig/Stephanie Start time Last Medication Dose Route Stop Time Status Admin Vasopressin 0 .STK-MED ONE 06/03 1643 DC (VASOSTRICT) .ROUTE Glucagon 1 MG ASDIR PRN 06/03 1530 AC (GLUCAGON) IM 07/03 1529 Insulin Human Regular 100 UNIT ASDIR 06/03 153 0 CKD (HumuLIN R) IV 07/03 1529 Sodium Chloride 99 ML (SODIUM CHLORIDE 0.9%) Insulin Human Lispro 0 Q4H PRN PRN 06/03 1400 A C (HUMALOG) SUBQ 06/04 1359 Insulin Human Regular 100 ML .STK-MED ONE 06/03 1136 DC (HumuLIN R 100 UNITS/ IV NS 100ML) Local Anesthetics (Parenteral) Sig/Stephanie Start time Last Medication Dose Route Stop Time Status Admin Ropivacaine 0 .STK-MED ONE 06/03 1136 DC (NAROPIN 0.5% 150 MG/ .ROUTE 30mL) Skin And Mucous Membrane Agent Sig/Stephanie Start time Last Medication Dose Route Stop Time Status Admin Mupirocin 1 APPLIC BID 06/03 2100 AC (BACTROBAN 2% 22 GM NASAL 06/08 0901 OINTMENT) Vitamins Sig/Stephanie Start time Last Medication Dose Route Stop Time Status Admin Cyanocobalamin 500 MCG DAILY 06/06 0900 AC (Vitamin B-12 500 PO 07/06 0859 mcg tab) Allergies: Coded Allergies: No Known Allergies (05/17/23) Review of Systems ROS Unable to obtain due to: Patient is orally intubated on the ventilator. H e is status post mitral valve replacement for myxomatous anterior leaflet sneha g with severe mitral regurgitation. Objective Physical Exam VS/I O: Last Documented: Result Date Time Pulse Ox 99 05/31 170 B/P 167/77 05/31 1705 Temp 36.4 05/31 170 Pulse 71 05/31 1705 Resp 16 05/31 6533 Patient Weight and BMI Weight (kg): 79.545 BMI: 26.7 Medications: Active Meds + DC'd Last 24 Hrs Ipratropium [place] (ATROVENT) 500 MCG RTQ2H PRN PRN INH Cyanocobalamin (Vitamin B-12 500 mcg tab) 500 MC G DAILY PO Ferrous Sulfate (FERROUS SULFATE) 325 MG DAILY P O Bisacodyl (DULCOLAX) 10 MG ONCE PRN RECTAL Magnesium Hydroxide (MILK OF MAGNESIA) 30 ML ONC E PRN PO Atorvastatin Calcium (LIPITOR) 40 MG 2100 PO Polyethylene Glycol (MIRALAX) 17 GM DAILY PO Aspirin (ASPIRIN) 81 MG DAILY PO Amiodarone HCl (CORDARONE) 200 MG TID PO Docusate Sodium (COLACE) 100 MG BID PO Gabapentin (NEURONTIN) 200 MG BID PO Metoprolol Tartrate (LOPRESSOR) 12.5 MG Q12HR PO Mupirocin (BACTROBAN 2% 22 GM OINTMENT) 1 APPLIC BID NASAL Sennosides (Senna Lax 8.6 MG TABLET) 17.2 MG BED TIME PO Furosemide (LASIX 20MG INJ) 10 MG ONCE ONE IV (D C) Albumin Human (ALBUMINAR-25%) 50 ML .STK-MED ONE IV (DC) Vasopressin (VASOSTRICT) 0 .STK-MED ONE .ROUTE ( DC) Ipratropium [place] (ATROVENT) 500 MCG RTQ4H INH Acetaminophen (TYLENOL) 650 MG Q4H PRN PRN PO Acetaminophen (TYLENOL) 650 MG Q4H PRN PRN RECTA L Albumin Human (ALBUMINAR 25%) 25 GM ASDIR PRN IV Calcium Chloride (CALCIUM CHLORIDE) 1 GM ASDIR P RN IV Cefazolin Sodium (KEFZOL OR ANCEF) 3 GM ONCE ONE IV Sodium Chloride (SODIUM CHLORIDE 0.9%) 250 ML Dextrose/Water (DEXTROSE 10% IN WATER) 125 ML DIR PRN IV (CKD) Dextrose/Water (DEXTROSE 10% IN WATER) 250 ML DIR PRN IV (CKD) Epinephrine (ADRENALIN CHLORIDE) 4 MG ASDIR IV Dextrose/Water (DEXTROSE 5% WATER) 246 ML Glucagon (GLUCAGON) 1 MG ASDIR PRN IM Insulin Human Regular (HumuLIN R) 100 UNIT ASDIR IV (CKD) Sodium Chloride (SODIUM CHLORIDE 0.9%) 99 ML Magnesium Sulfate (MAGNESIUM SULFATE 4GM/SWFI 10 0ML) 100 ML ASDIR PRN IV Magnesium Sulfate (MAGNESIUM SULFATE 2GM/SWFI 50 ML) 50 ML ASDIR PRN IV Magnesium Sulfate/Dextrose (MAGNESIUM SULFATE 1G M/D5W 100ML) 100 ML ASDIR PRN IV Morphine Sulfate (morphine SULFATE) 4 MG Q2H PRN PRN IV Nitroglycerin/Dextrose (NITROGLYCERIN 50,000MCG/ D5W 250ML) 250 ML ASDIR IV Norepinephrine Bitartrate (NOREPINEPHRINE 8 MG/N S 250 ML) 250 ML TITRATE IV Ondansetron HCl (ZOFRAN) 4 MG Q6H PRN PRN IV Oxycodone HCl (ROXICODONE) 5 MG Q4H PRN PRN PO Oxycodone HCl (ROXICODONE) 10 MG Q4H PRN PRN PO Potassium Chloride (KCL 20MEQ/SWFI 100ML) 100 ML ASDIR PRN IV Sodium Bicarbonate (SODIUM BICARBONATE) 50 MEQ A SDIR PRN IV Sodium Chloride (SODIUM CHLORIDE 0.9%) 1,000 ML .Q20H IV Sodium Chloride (SODIUM CHLORIDE 0.9%) 250 ML Q2 4H IV Cefazolin Sodium (KEFZOL OR ANCEF) 2 GM PREOP PRODUCT GRADER IV (DC) Insulin Human Lispro (HUMALOG) 0 Q4H PRN PRN SUB Q Vancomycin HCl (Vancomycin 1,250 mg Inj (B2)) 1, 250 MG PREOP ONCALL IV ( DC) Sodium Chloride (SODIUM CHLORIDE 0.9%) 250 ML Protamine Sulfate (PROTAMINE SULFATE) 0 .STK-MED ONE IV (DC) Fentanyl Citrate (SUBLIMAZE) 0 .STK-MED ONE IV ( DC) Propofol (DIPRIVAN 200MG/20ML INJECTION) 20 ML . STK-MED ONE IV (DC) Dexamethasone Sodium Phosphate (DECADRON) 0 .STK -MED ONE .ROUTE (DC) Lidocaine HCl (XYLOCAINE) 0 .STK-MED ONE .ROUTE (DC) Ondansetron HCl (ZOFRAN) 0 .STK-MED ONE .ROUTE ( DC) Rocuronium [place] (ZEMURON) 0 .STK-MED ONE IV ( DC) Sodium Chloride (SODIUM CHLORIDE) 20 ML ASDIR IV Sodium Chloride (SODIUM CHLORIDE 0.9%) 250 ML .S TK-MED ONE IV (DC) Vancomycin HCl (Vancomycin 1,250 mg Inj (B2)) 0 .STK-MED ONE IV (DC) Norepinephrine Bitartrate (LEVOPHED BITARTATE) 0 .STK-MED ONE IV (DC) Sodium Chloride (SODIUM CHLORIDE 0.9%) 250 ML .S TK-MED ONE IV (DC) Protamine Sulfate (PROTAMINE SULFATE) 0 .STK-MED ONE IV (DC) Cefazolin Sodium (KEFZOL OR ANCEF) 0 .STK-MED ON E .ROUTE (DC) Epinephrine HCl (EPINEPHrine 4 mg/D5W 250 mL) 25 0 ML .STK-MED ONE IV (DC ) Heparin Sodium (HEPARIN SODIUM) 0 .STK-MED ONE . ROUTE (DC) Insulin Human Regular (HumuLIN R 100 UNITS/NS 10 0ML) 100 ML .STK-MED ONE IV (DC) Nitroglycerin/Dextrose (NITROGLYCERIN 50,000MCG/ D5W 250ML) 250 ML .STK-MED ONE IV (DC) Ropivacaine (NAROPIN 0.5% 150 MG/30mL) 0 .STK-ME D ONE .ROUTE (DC) Sodium Chloride (SODIUM CHLORIDE 0.9%) 100 ML .S TK-MED ONE IV (DC) Aminocaproic Acid (AMICAR) 0 .STK-MED ONE IV (DC ) Calcium Chloride (CALCIUM CHLORIDE) 0 .STK-MED O NE IV (DC) Magnesium Sulfate (MAGNESIUM SULFATE) 0 .STK-MED ONE .ROUTE (DC) Albumin Human (ALBUMINAR-25%) 100 ML .STK-MED ON E IV (DC) Heparin Sodium (HEPARIN SODIUM) 0 .STK-MED ONE . ROUTE (DC) Lidocaine HCl (XYLOCAINE IV) 0 .STK-MED ONE IV ( DC) Sodium Bicarbonate (SODIUM BICARBONATE) 0 .STK-M ED ONE IV (DC) Sodium Chloride (SODIUM CHLORIDE 0.9%) 100 ML .S TK-MED ONE IV (DC) Magnesium Sulfate (MAGNESIUM SULFATE) 0 .STK-MED ONE IV (DC) Phenylephrine HCl (CRISTAL-SYNEPHRINE 10MG/ML AMP) 0 .STK-MED ONE .ROUTE (DC ) Acetaminophen (TYLENOL EXTRA STRENGTH) 0 .STK-ME D ONE .ROUTE (DC) Gabapentin (NEURONTIN) 0 .STK-MED ONE .ROUTE (DC ) Vancomycin HCl (VANCOMYCIN HCL) 1,000 MG Q12H IV (DC) Sodium Chloride (SODIUM CHLORIDE 0.9%) 250 ML Acetaminophen (TYLENOL EXTRA STRENGTH) 1,000 MG PREOP ONCALL PO (DC) Gabapentin (NEURONTIN) 200 MG PREOP ONCALL PO (D C) Lactated Ringer's (LACTATED RINGERS) 1,000 ML SD EOP ONCALL IV Lidocaine HCl (LIDOCAINE HCL/PF) 2 ML PREOP ONCA LL LOCAL Lidocaine HCl (LIDOCAINE HCL/PF) 2 ML PREOP ONCA LL LOCAL Sodium Chloride (SODIUM CHLORIDE 0.9%) 500 ML SD EOP ONCALL IV Sodium Chloride (SODIUM CHLORIDE 0.9%) 500 ML SD EOP ONCALL IV Sodium Chloride (SODIUM CHLORIDE 0.9%) 1,000 ML PREOP ONCALL IV Sodium Chloride (SODIUM CHLORIDE) 5 ML ASDIR PRN IV Sodium Chloride (SODIUM CHLORIDE) 10 ML ASDIR SD N IV Sodium Chloride (SODIUM CHLORIDE 0.9%) 250 ML DIR PRN IV General appearance: altered mental status, respi ratory support, no acute distress, no respiratory distress Head/Eyes: atraumatic, EOMI, normocephalic, PERR L ENT: moist mucosal membranes, normal sinus Neck: non-tender, no JVD, no masses or swelling Cardiovascular: normal capillary refill, normal heart sounds, regular rate and rhythm Respiratory: aerating well, clear to auscultatio n, symmetric expansion, no distress Abdomen: soft, non-tender, no distention, no gua rding, no rebound Genitourinary: no flank pain Extremities: no clubbing, no cyanosis, no edema Neuro/CERTIFIED NURSES AIDE: altered mental status Skin: dry, normal color, normal temperature, no rash Psychiatry: unable to evaluate Results Findings/Data: Laboratory Tests 06/03/23 1621: [Embedded Image Not Available] Laboratory Tests 06/03 06/03 06/03 06/03 1657 1614 1520 1436 Blood Gas Puncture Site Art Line O2 Saturation (90 - 100 %) 99.8 100.0 100.0 10 0.0 ABG pH (7.35 - 7.45) 7.357 7.355 7.397 7.422 ABG pCO2 (35.0 - 45 mmHg) 37.8 38.7 39.7 39.6 ABG pO2 (80 - 100.0 mmHg) 233.9 *H 573.9 *H 381 .5 *H 431.8 *H ABG PO2/FiO2 Ratio (mm/Hg) 467.80 ABG HCO3 (22.0 - 26.0 MMOL/L) 21.3 L 21.6 L 24. 4 25.8 ABG Total CO2 22.5 22.8 25.6 27.0 ABG Base Excess (-4.0 - 4.0 MMOL/L) -4.3 L -3.6 -0.4 1.3 ABG Hematocrit (37.5 - 50.7 %) 29 L 28 L 27 L 2 9 L ABG Hemoglobin (12.5 - 16.9 G/DL) 9.8 L 9.6 L 9 .3 L 9.7 L Salas Test N/A Sodium (134 - 147 mmol/L) 141 142 137 137 Potassium (3.4 - 5.0 mmol/L) 3.6 3.9 5.2 H 5.3 H Chloride (100 - 108 mmol/L) 109 H 109 H 105 10 5 Ionized Calcium (1.12 - 1.32 MMOL/L) 1.15 1.14 1.00 L 1.03 L Lactic Acid (0.9 - 1.7 mmol/l) 3.4 H 1.7 1.4 Temperature (F) 98 O2 Delivery Device Adult Vent Vent Mode AC Vent Rate (/MIN) 20 FiO2 (%) 50 Tidal Volume (ml) 500 PEEP (cmH2O) 5 06/03 06/03 06/03 1411 1332 1234 Blood Gas O2 Saturation (90 - 100 %) 100.0 100.0 96.4 ABG pH (7.35 - 7.45) 7.553 *H 7.412 7.438 ABG pCO2 (35.0 - 45 mmHg) 31.2 L 35.5 38.1 ABG pO2 (80 - 100.0 mmHg) 432.7 *H 610.1 *H 81. 6 ABG HCO3 (22.0 - 26.0 MMOL/L) 27.5 H 22.6 25.7 ABG Total CO2 28.4 23.7 26.9 ABG Base Excess (-4.0 - 4.0 MMOL/L) 5.1 H -1.6 1.6 ABG Hematocrit (37.5 - 50.7 %) 27 L 35 L 40 ABG Hemoglobin (12.5 - 16.9 G/DL) 9.3 L 12.0 L 13.5 Sodium (134 - 147 mmol/L) 139 140 139 Potassium (3.4 - 5.0 mmol/L) 5.8 H 3.5 3.7 Chloride (100 - 108 mmol/L) 106 107 103 Ionized Calcium (1.12 - 1.32 MMOL/L) 0.99 L 1.1 3 1.23 Lactic Acid (0.9 - 1.7 mmol/l) 1.3 0.9 1.5 Laboratory Tests 06/03 06/03 06/03 06/03 06/03 1657 1614 1520 1436 1411 Chemistry POC Creatinine (0.8 - 1.3 mg/dL) 0.7 L 0.7 L 0. 6 L 0.7 L 0.7 L POC Glucose (mg/dL) (70 - 110 MG/DL) 165 H 146 H 180 H 183 H 170 H 06/03 06/03 06/03 1332 1234 1029 Chemistry POC Creatinine (0.8 - 1.3 mg/dL) 0.6 L 0.8 POC Glucose (70 - 110 MG/DL) 159 H POC Glucose (mg/dL) (70 - 110 MG/DL) 152 H 152 H Laboratory Tests 06/03 06/03 06/03 06/03 06/03 1621 1621 1518 1438 1413 Coagulation INR (0.8 - 1.2) 1.4 H PTT (Juana) (25.0 - 39.5 Seconds) 43.0 H PT Patient/Control Mix (9.3 - 12.9 15.7 H SECONDS) Activated Coag Time (74 - 137 SEC) 155 H 606 H 648 H 456 H 06/03 06/03 1334 1237 Coagulation Activated Coag Time (74 - 137 SEC) 841 H 149 H Laboratory Tests 06/03 1621 Hematology WBC (4.5 - 11.0 x10 3/uL) 17.1 H RBC (4.00 - 5.60 x10 6/uL) 3.39 L Hgb (12.5 - 16.9 g/dL) 10.6 L Hct (37.5 - 50.7 %) 30.9 L MCV (81.0 - 99.0 fL) 91.2 MCH (27.0 - 33.0 pg) 31.3 MCHC (33.0 - 37.0 g/dL) 34.3 RDW (11.5 - 14.5 %) 12.8 Plt Count (150 - 400 x10 3/uL) 104 L MPV (7.0 - 9.0 fL) 10.5 H Neut % (Auto) (56.0 - 77.0 %) 78.2 H Lymph % (Auto) (14.0 - 32.0 %) 16.1 [place] % (Auto) (4.8 - 9.0 %) 3.9 L Eos % (Auto) (0.3 - 3.7 %) 0.8 Baso % (Auto) (0.0 - 2.0 %) 0.3 Neut # (Auto) (2.0 - 7.6 x10 3/uL) 13.40 H Lymph # (Auto) (1.0 - 3.8 x10 3/uL) 2.76 [place] # (Auto) (0.1 - 0.8 x10 3/uL) 0.67 Eos # (Auto) (0.0 - 0.2 x10 3/uL) 0.13 Baso # (Auto) (0.0 - 0.2 x10 3/uL) 0.05 Abs Immat Gran (auto) (0.00 - 0.03 x10 3/uL) 0. 12 H Add Manual Diff NO Immature Gran % (0.0 - 2.0 %) 0.7 Nucleated RBC % (0 - 0 %) 0.0 Nucleated RBCs # (Man) (0.0 - 0.1 x10 3/uL) 0.0 0 Diagnosis, Assessment Plan Diagnosis, Assessment Plan Consultants: anesthesiology, cardiology, cardiov ascular surgery, critical/ paper testing supervisor, hospitalist Plan discussed with: consultants, nurse, interdi sc care team Critical care time: Minutes: 55 Code Status/Resusc. Discussion Resuscitation discussion: Discussed with: family Code status: full code Free text DxA P: Problem List: Severe mitral valve prolapse Myxomatous anterior leaflet Paroxysmal atrial fibrillation status post faile d ablation Acute blood loss anemia Elective ventilator dependence Acute pulmonary insufficiency following major ca rdiothoracic surgery History of hypothyroidism Assessment and Plan: Patient was received in CVICU room #2202 this af ternoon. Patient was found to have severe MR with paroxysmal atrial fibrillati on. He underwent mitral valve replacement with 29 Mitris along with isolation of left atrial appendage. Patient had prolapsed mitral valve along with my xomatous thickened anterior leaflet. He is status post mitral valve replacem ent. Patient was low on intravascular volume with a CVP measuring 6 to 7 cm. Received IV fluid bolus. Normal EF. At the end of the procedure there was no evidence of mitral regurgitation or paravalvular leak. Mohini ent received 450 mL of Cell Saver, 1 L of IV fluids, no autologous transfusion was given. Patient received 25% albumin 1 infusion. Had 3 and mL of EBL and 900 mL of ur ine output. Upon transfer to the CVICU patient is on norepinephrine at 2 mcg, epinephrine at 2 and vasopressin at 0.04 units. Patient is currently on assist-control at 20 tidal volume 500 PEEP of 5 and 50% FiO2. Latest blood gas shows a pH of 7.35, pCO2 of 38 mmHg, pO2 of 235 mmHg and bicarbonate of 21 m mol with base excess at -4.3. Latest blood glucose 165 mg/ dL, creatinine 0.72 mg/dL, hemoglobin 9.8 g/dL with hematocrit of 29%. Potassium is 3.6 and is being repleted with 20 mg of potassium chloride and ionized calcium is 1.15. Patient will receive 1 amp of sodium bicarbonate for mild metabolic acidosis. Vital signs are stable with a heart rate of 80 sinus rhyth m, blood pressure is 126/74 mmHg, PA pressures 37/22 mmHg and respiratory rate 24 with pulse ox of 10 0%. Odin Zeng is a 83-year-old gentleman with a [facility] medical history of atrial fibrillation, status post failed ablation in the past, on Eliquis therapy, diabetes, hypothyroid, who was found to have sig nificant mitral valve regurgitation with a flail mitral valve leaflet. He is followed by his custom grinder Dr. Zaidi. He denies any history of stroke, denies any history of chest pains. He is on Eliquis therapy for his at rial fibrillation. Patient admitted for mitral valve replacement for flail mitral valve leaflet. Patient underwent MVR on 06/03/2023. Surgery was uneventf ul. Patient is orally intubated and on mechanical ventilation. Patient is postop day 0 after mitral valve repla cement Was evaluated for severe mitral regurgitation fr om mitral valve prolapse Myxomatous degeneration of the anterior leaflet Low CVP to begin with Patient was volume responsive and was given uzair talloids boluses Normal EF Mildly elevated PA pressures in the 40s Current PA pressure is 37/22 mmHg Vital signs are stable with a heart rate of 80 in sinus rhythm, blood pressure is 126/74 mmHg At the end of surgery no mitral regurgitation or paravalvular leak Patient is on vasopressor [place] pport with Epinephrine and Nor-epinephrine at 2 mics and vasopressin at 0.04 units Mild metabolic acidosis with a pH of 7.35, PCO2 of 38 mmHg, PO2 of 235 mmHg and bicarbonate of 21 mmol with base excess at -4.3 Give 1 amp of sodium bicarbonate INS calcium is 1.15 while the potassium is 3.6 m mol Give 20 mg of potassium chloride Glycemic control adequate at 165 mg/dL Creatinine is normal at 0.72 mg/dL Patient has acute blood loss anemia with a hemoglobin of 9.8 g/dL and hematocrit of 29% Does not meet transfusion threshold at this time Currently on assist-control at 20 tidal volume 5 00 PEEP of 5 and 50% FiO2 Patient is unresponsive at this time Should be fast-track extubation SCDs for DVT prophylaxis Yosi Gomez MD [facility] 06/03/2023 5.23 PM Electronically Signed by Yosi Gomez MD on 05/18 06/09 at 1727 [facility] #:[id number] END OF REPORT 2023-06-03 16:43:00-00:00 [id number] [place] [address] PATIENT NAME: ODIN ZENG ADMIT DATE: 06/03/23 ACCOUNT NO: [id number] ROOM NO: G.2202 AGE: 83 REPORT TYPE: OPERATIVE REPORT SEX: M ADMITTING PHYSICIAN:Abiodun Sanchez MD ATTENDING PHYSICIAN:Abiodun Sanchez MD OPERATION DATE: 06/03/2023 PREOPERATIVE DIAGNOSES: 1. Mitral regurgitation. 2. Paroxysmal atrial fibrillation. POSTOPERATIVE DIAGNOSES: 1. Mitral regurgitation. 2. Paroxysmal atrial fibrillation. PROCEDURES: 1. Mitral valve replacement (29 Mitris valve). 2. Pulmonary vein isolation. 3. Isolation of left atrial appendage. SURGEON: Abiodun Sanchez M.D. SECRET CODE EXPERT: Sue Hoyos. ANESTHESIOLOGIST: Dr. Jimenez. ANESTHESIA: General endotracheal anesthesia. ESTIMATED BLOOD LOSS: 100 mL. INDICATIONS: Mr. Zeng is an 83-year-old gentlem an with severe mitral regurgitation secondary to prolapse of the anter ior leaflet, which was significantly thickened and myxomatous. The mohini ent also had a history of paroxysmal atrial fibrillation. After due preop counseling, he was brought to the operating room today for mitral valve replacement, pulmonary vein isolation and isolation of left atrial appendage. FINDINGS: 1. Osteoporotic sternum. 2. Normal pericardium without any intrapericardi al adhesions with minimal intrapericardial fluid. 3. Pulmonary vein isolation was performed by cre ating a box lesion around the pulmonary vein using AtriCure device. 4. Left atrial appendage was isolated using a 35 mm AtriClip. 5. Thickened and prolapsed anterior leaflet. 6. Mitral valve replacement was performed by ritchie ing all the subvalvular apparatus. 7. Mitral annulus was sized to 29 Mitris valve. PATIENT NAME: ODIN ZENG 1 8. SUE at the end of the case did not show any e vidence of paravalvular leak. DESCRIPTION OF PROCEDURE: Mr. Zeng was identified in the preoperative holding area and brought to the oper ating room and placed supine on the operating table. After induction of general endotracheal anesthe marnie, a Hilario catheter, radial artery line, and antibiotics were placed. The patient's anterior torso and both lower extremities were prepped and draped in a s tandard surgical fashion. A median sternotomy was performed. The patient was heparinized. The pericardium was opened longitudinally and a pericardial well was created. Cardiopulmonary bypass was instituted using ascending aorta and bicaval cannulation with 24 metal tip cannula in SVC and 32 bull nose cannul a in the IVC. The patient was cooled to 32 degrees centigrade. A Red Rubber ca theter was passed through the oblique sinus and back through the transverse si nus. This was then used to guide the AtriCure device and a box lesion was c reated around the 4 pulmonary veins using AtriCure device. Next, the crossclamp was applied and the heart was arrested with 1.5 antegrade and retrograde cold blood cardioplegia. Cardioplegia was repeated at interval of 10 minutes all throughout duration of crossclamp. Next, the left atrial append age was measured and a 35- mm AtriClip was deployed at the base. Next, a standard left atriotomy was performed posterior to the Sondergaard's groove. Parekh ret ractor was used with good exposure of the mitral valve. The valve was inspected with the above-mentioned finding. Next, the anterior leaflet was bisected and plicated to the annulus. The annulus was then sized to 29 Mitris valve. C ircumferential 3-0 Ethibond sutures were then placed in the mitral annulus. A size 29 Mitris valve was then brought into surgical field. The sutures sequentially passed through the sewing ring. The valve was lowered down to the annulus. After confirming proper seating, the sutures were tied. Rewarming was co mmenced at this stage. The left atriotomy was closed in a single layer usin g running 4-0 Prolene suture. Careful de-aeration was performed and th e cross-clamp was released. Two active atrial and one active ventricular wire was place d. A 28-[place]ican chest tube was placed in the mediastinum an d 28-angled chest tube was placed in the pericardial space. Once the patient was at temperature, de-a iring maneuvers were repeated and the patient was weaned off cardiopulmonary b ypass with minimal inotropic support. Heparin was reversed with protamine. De cannulation was uneventful. After confirming hemostasis, the chest was close d in layers using stainless wires for the sternum, #1 Vi cryl for the fascia, 2-0 Vicryl for the subcutaneous tissue, and 4-0 Vicryl for the skin. The patient was transferred to the intensive care unit intubated in a stable condit ion. Dictated By: Abiodun Sanchez MD Date Dictated: 06/03/2023 16:43:39 Date Transcribed: 06/03/2023 19:48:39 /ALCALDE Receipt ID: [id number] Authenticated by Branden Sanchez MD On 023 04:56:16 PM at 0456 PATIENT NAME: ODIN ZENG 1 2023-06-03 16:33:00-00:00 [facility] Op Note REPORT#:[id number] REPORT STATUS: Signed DATE:06/03/23 TIME: 1633 PATIENT: ODIN ZENG UNIT #: [id number] ROOM/BED: [place] [address] : 40 AGE: 83 SEX: M ATTEND: Ramo Sanchez MD ADM AUTHOR: Abiodnu Sanchez MD * ALL edits or amendments must be made on the [employer] document * Op/Inv Proc Note - Brief Pre-procedure diagnosis: MR PAF Post-procedure diagnosis: same as pre procedure dx Procedures performed: MVR (29 Mitris) PVI ILAA Primary Surgeon: Laura Technical Education Teacher(s): Sue Hoyos Findings: prolapsed and thickened anterior leaflet Complications: none Estimated blood loss in ml's: 100 cc Specimens removed/altered: AML at 1638 RPT #:[id number] END OF REPORT 2023-06-03 09:50:00-00:00 [facility] History Physical - Adult REPORT#:[id number] REPORT STATUS: Signed DATE:06/03/23 TIME: 0950 PATIENT: ODIN ZENG UNIT #: [id number] ROOM/BED: [place] [address] : 40 AGE: 83 SEX: M ATTEND: Ramo Sanchez MD ADM AUTHOR: Kerri Cassidy Physic * ALL edits or amendments must be made on the [employer] document * History of Present Illness HPI HPI: This is an 83-year-old gentleman with a past med ical history of atrial fibrillation, status post failed ablation in the past, on Eliquis therapy, diabetes, hypothyroid, who was found to have sig nificant mitral valve regurgitation with a flail mitral valve leaflet. He is followed by his custom grinder Dr. Lobito hernandez. He has an outpatient left heart catheterization scheduled in the near future. He denies any history of stroke, denies any hist ory of chest pains. He is on Eliquis therapy for his atrial fibrilla tion. Patient admitted for mitral valve replacement fo r flail mitral valve leaflet. History Smoking status for patients 13 years old or olde r: Former Smoker Packs per day: 3 Years smoked: 18 Pack years: 54 Medication/Allergy-Vaccine Hx Allergies: Coded Allergies: No Known Allergies (05/17/23) Review of Systems Additional notes: Constitutional: Negative for fever, chills, weig ht loss Skin: Negative for rash, negative for swelling n egative for any laceration HEENT: Denies hearing loss d enies any ear ringing denies any earache denies any sore throat denies any throat pain Respiratory: Denies dyspnea on exertion denies h emoptysis denies any cough denies any shortness of breath Cardiac: Denies chest pain, denies palpitations denies orthopnea GI: Denies constipation denies diarrhea : Denies hematuria denies dysuria denies flank pain Musculoskeletal: Denies any joint pain denies an y joint swelling denies any myalgia Hematologic: Denies any easy bruising, denies an y bleeding Endocrine: denies any night sweats, denies polyu dianna polydipsia Neurologic: Denies any lightheaded denies any he adache denies any confusion denies any dizziness Physical Exam VS/I O PATIENT WEIGHT: Weight (lb): 170 Weight (oz): 3.15 Weight (kg): 77.200 Free Text PE Notes Free Text PE Notes: General: well nourished, well groomed, no acute distress. HEENT: conjunctiva clear, ex traocular movement intact, PERRLA, sclera anicteric. normal dentition, gums, normal, oral mucosa with out pallor or cyanosis. Neck: no, JVD, trachea midline, no, lymphadenopa thy, neck supple, normal ROM. Respiratory: Clear to auscultation, no distress. Cardiovascular: regular rate and rhythm, S1, S2, normal, systolic murmur rubs or gallops, pulses, palpable, symetric. Abdomen: Soft, non tender. No rebound. No guardi ng Extremities: dry, moves all. Musculoskeletal: Full range of motion, no CVA te nderness, no muscle spasm Skin: warm, dry, no, lesions, rash. Neurologic: Alert and oriented x3. Psychiatric: affect and demeanor normal Diagnosis, Assessment Plan Free Text DxA P Notes Free Text DxA P Notes: This is an 83-year-old gentleman with a past med ica history of atrial fibrillation, status post failed ablation in the past, on Eliquis therapy, diabetes, hypothyroid, who was found to have sig nificant mitral valve regurgitation with a flail mitral valve leaflet. He is followed by his custom grinder Dr. Lobito hernandez. He has an outpatient left heart catheterization scheduled in the near future. He denies any history of stroke, denies any hist ory of chest pains. He is on Eliquis therapy for his atrial fibrilla tion. Patient admitted for mitral valve replacement fo r flail mitral valve leaflet. Assessment/plan 1. Mitral valve regurgitation 2. Atrial fibrillation Patient is admitted for mitr al valve replacement with PVI, left atrial appendage amputation. This was discussed with the patient by Dr. Duong siddiqi. The risk of the operation including STS score, r isk of , bleeding, heart attack, stroke, renal failur e, dialysis, prolonged ICU stay, tracheostomy, need for long-term rehabilitation etc. was discussed with the patient in depth. Patient's questions were ans wered and the patient agreed to proceed with surgery at 0409 RPT #:[id number] END OF REPORT 2023-05-31 15:12:00-00:00 [id number] [place] [address] PATIENT NAME: ODIN ZENG ADMIT DATE: ACCOUNT NO: [id number] ROOM NO: AGE: 83 REPORT TYPE: eELECTROCARDIOGRAM REPORT SEX: M ADMITTING PHYSICIAN:Abiodun Sanchez MD ATTENDING PHYSICIAN:Abiodun Sanchez MD Order: [id number] Test Reason : PREOP Test Date/Time Stamp: SatMay 31 2023 15:12:08 Blood Pressure : / mmHG Vent. Rate : 069 BPM Atrial Rate : 069 BPM P-R Int : 238 ms QRS Dur : 084 ms QT Int : 410 ms P-R-T Axes : 091 049 066 degree s QTc Int : 439 ms Sinus rhythm with 1st degree AV block Otherwise normal ECG When compared with ECG of 20-MAY-2023 07:50, No significant change was found Confirmed by ALEJANDRO MIRANDA MD ([id number]) on 05/31/20 5:15:03 PM Referred By: Avila Sanchez Confirmed by:ALEJANDRO AHUJA MD Electronically Signed by Alejandro Miranda MD on at 1715 PATIENT NAME: ODIN ZENG 1 2023-05-20 08:37:00-00:00 [id number] [place] [address] PATIENT NAME: ODIN ZENG ADMIT DATE: 05/20/23 ACCOUNT NO: [id number] ROOM NO: AGE: 83 REPORT TYPE: OPERATIVE REPORT SEX: M ADMITTING PHYSICIAN: ATTENDING PHYSICIAN:Adam Zaiid MD OPERATION DATE: 05/20/2023 PREOPERATIVE DIAGNOSIS: POSTOPERATIVE DIAGNOSIS: PROCEDURES PERFORMED: 1. Selective coronary angiogram. 2. Left heart catheterization. SURGEON: Adam Zaidi MD. SECRET CODE EXPERT: ANESTHESIA: INDICATION: Preop for open heart surgery for tiny ral valve replacement. ACCESS: Right radial artery, 6-C[place]ican closed wit h TR band. COMPLICATIONS: None. BLEEDING: Less than 20 mL. TOTAL SEDATION TIME: 15 minutes, used fentanyl a nd Versed. DESCRIPTION OF PROCEDURE: After risks, benefits and alternatives were explained, the patient agreed to proceed and sig dar informed consent. The patient was brought into the cardiac catheteriza tion laboratory, prepped and draped in sterile fashion. Then, I accessed the right radial artery using pediatric micropuncture kit, placed 6-[place]ican sle nder sheath and took 5-[place] 4.0 catheter into the aortic root, engaged the left main and then right coronary artery and took standard views, and the catheter was pushed over the wire into the LV, measured LVEDP and pullback no t recorded any gradient, then removed the catheter and the sheath and placed T R band with good hemostasis. FINDINGS: 1. Left main large and normal. 2. LAD has two tandem lesions in the mid segment s. Each one of them is about 60%. The rest of the LAD is normal, diagonal bra nches appeared normal. 3. Left circumflex small, nondominant without an y significant disease. 4. There is a ramus intermedius with diffuse 20- 30% stenosis. 5. RCA very large and dominant with no disease. PATIENT NAME: ODIN ZENG 8 6. Elevated LVEDP at 16 mmHg. CONCLUSION: 1. Moderate coronary artery disease, nonobstruct jose martin. 2. Elevated left ventricular end-diastolic press ure. RECOMMENDATION: Proceed with a mitral valve proc edure as planned. Dictated By: Adam Zaidi MD Date Dictated: 05/20/2023 08:37:06 Date Transcribed: 05/20/2023 09:04:53 /VIP Receipt ID: [id number] Authenticated by Adam Zaidi MD On 05/28/2023 10:56:30 AM Electronically Signed by Adam Zaidi MD on at 1056 PATIENT NAME: ODIN ZENG 8 2023-05-20 07:50:00-00:00 [id number] [place] [address] PATIENT NAME: ODIN ZENG ADMIT DATE: 05/20/23 ACCOUNT NO: [id number] ROOM NO: AGE: 83 REPORT TYPE: eELECTROCARDIOGRAM REPORT SEX: M ADMITTING PHYSICIAN: ATTENDING PHYSICIAN:Adam Zaidi MD Order: [id number] Test Reason : [facility] Test Date/Time Stamp: SatMay 20 2023 07:50:09 Blood Pressure : / mmHG Vent. Rate : 072 BPM Atrial Rate : 072 BPM P-R Int : 242 ms QRS Dur : 084 ms QT Int : 408 ms P-R-T Axes : 083 031 084 degree s QTc Int : 446 ms Sinus rhythm with 1st degree AV block Nonspecific ST abnormality Abnormal ECG No previous ECGs available Confirmed by GARCIA CAI ([id number]) on 05/24/2023 8:5 6:29 AM Referred By: Adam Zaidi Confirmed by:GARCIA CARO Electronically Signed by Garcia Cai MD on at 0856 PATIENT NAME: ODIN ZENG 8
[2023-06-14 14:38] LABS: Absolute Lymphocytes (CBC) 1.4 K/uL (0.7-4.9); Hematocrit 28.2 % (39.6-49.0); Lymphocytes % 11.1 % (15.3-44.8); MCV 91.1 fL (80-100); MPV 6.8 fL (7.6-11.3); RBC Red Blood Cell Count 3.09 M/uL (4.33-5.43)
--- NOTE | 2023-06-14 14:56 | RAD REPORT ---
EXAM DESCRIPTION: Romina Single View06/14/2023 2:49 pm CLINICAL HISTORY: Chest pain/shoulder pain COMPARISON: March 2023 FINDINGS: The lungs appear clear of acute infiltrate. The heart is borderline enlarged Postsurgical changes involve the chest. Lungs are mildly to moderately hyperaerated Probable small pleurally fusions
[2023-06-14 14:58] LABS: Magnesium 2.1 mg/dL (1.6-2.4); Potassium 3.5 mEq/L (3.5-5.1)
[2023-06-14] MEDS ORDERED: FUROSEMIDE 20 MG TABLET ONE (15:14)
--- NOTE | 2023-06-14 16:07 | RAD REPORT ---
EXAM DESCRIPTION: USExtrem Venous W Compress Bil06/14/2023 3:38 pm CLINICAL HISTORY: Leg swelling COMPARISON: none FINDINGS: The common femoral, superficial femoral, greater saphenous, popliteal and posterior tibial veins bilaterally are compressible and demonstrate augmentation. Doppler demonstrates good flow. Grayscale, color and spectral analysis performed on all vessels IMPRESSION: No evidence of deep venous thrombosis involving either lower extremity.
--- NOTE | 2023-06-14 16:29 | EDPHYS ---
Physician Documentation [facility] Name: Basil Zeng Age: 83 yrs Sex: Male : 1940 Arrival Date: 06/14/2023 Time: 14:15 Bed 17 Private MD: ED Physician Jewel Erazo HPI: 06/14 15:40 This 83 yrs old Male presents to ER via EMS with complaints of Chest Pain, Possible ms3 Cardiac Related, Swelling of Lower Extremity, Post Surgical Pain. 15:40 83-year-old male with past medical history of coronary artery disease presents via [facility] after having open heart surgery on June 03 with discharged yesterday from [facility]. Patient states today he noticed swelling in bilateral legs and was having some right shoulder pain that lasted 2 to 3 minutes during each episode. Patient denies pain on arrival.. Historical: - Allergies: 14:15 No Known Allergies; eh3 - Immunization history:: Adult Immunizations up to date. - Social history:: Smoking status: unknown. ROS: 15:40 Constitutional: Negative for fever, and chills. Neck: Negative for injury, pain, and ms3 swelling. 15:40 Back: Positive for Right posterior shoulder pain. 15:40 MS/extremity: Positive for swelling, of the Bilateral lower extremity. Exam: 15:40 Constitutional: This is a well developed, well nourished patient who is awake, alert, ms3 and in no acute distress. Head/Face: Normocephalic, atraumatic. Neck: Trachea midline, no cervical lymphadenopathy. Supple, full range of motion without nuchal rigidity, or vertebral point tenderness. No Meningismus. 15:40 Respiratory: Lungs have equal breath sounds bilaterally, clear to auscultation and percussion. No rales, rhonchi or wheezes noted. No increased work of breathing, no retractions or nasal flaring. Abdomen/GI: Soft, non-tender, with normal bowel sounds. No distension or tympany. No guarding or rebound. No evidence of tenderness throughout. Skin: Warm, dry with normal turgor. Normal color with no rashes, no lesions, and no evidence of cellulitis. 15:40 Chest/axilla: Inspection: Incision without erythema, drainage. 15:49 ECG was reviewed by the Attending Physician. ms3 Vital Signs: 14:15 BP 135 / 52; Pulse 73; Resp 12; Temp 98.1(O); Pulse Ox 100% on R/A; Weight 86.5 kg; eh3 Height 5 ft. 8 in. ; 15:15 BP 137 / 50; Pulse 70; Resp 20; Pulse Ox 100% on R/A; eh3 16:15 BP 137 / 54; Pulse 70; Resp 18; Pulse Ox 97% on R/A; eh3 14:15 Body Mass Index 29.00 (86.50 kg, 172.72 cm) eh3 MDM: 14:24 Patient medically screened. ms3 15:40 Differential diagnosis: pneumonia, pneumothorax, DVT. ms3 16:29 Data reviewed: vital signs, nurses notes, lab test result(s), radiologic studies, and ms3 as a result, I will discharge patient. I considered the following discharge prescriptions or medication management in the emergency department Medications were administered in the Emergency Department. See MAR. Independent interpretation of the following test(s) in the Emergency Department EKG: See my EKG interpretation above awake overnight monitor: rate is 66 beats/min, Rhythm is normal sinus rhythm, regular, with no ectopy, Interpretation: normal rate, normal rhythm. Counseling: I had a detailed discussion with the patient and/or guardian regarding: the historical points, exam findings, and any diagnostic results supporting the discharge/admit diagnosis, lab results, radiology results, the need for outpatient follow up, to return to the emergency department if symptoms worsen or persist or if there are any questions or concerns that arise at home. Special discussion: I discussed with the patient/guardian in detail that at this point there is no indication for admission to the hospital. It is understood, however, that if the symptoms persist or worsen the patient needs to return immediately for re-evaluation. ED course: Discussed labs, chest x-ray, venous Doppler bilateral lower extremities with patient and his daughters. Patient states he is comfortable being discharged. Patient has appointment with Dr. Zaidi on Saturday. Patient without pain at this time. Discussed return precautions with patient and his daughters to include fevers, chills, shortness of breath, chest pain, worsening symptoms, or any other concerns. On reevaluation patient is alert and orient x4, no apparent distress, nontoxic-appearing, speaking full sentences.. 06/14 14:27 Order name: Basic Metabolic Panel; Complete Time: 15:03 ms3 06/14 14:27 Order name: CBC with Diff; Complete Time: 15:03 ms3 06/14 14:27 Order name: Magnesium; Complete Time: 15:03 ms3 06/14 14:27 Order name: NT PRO-BNP; Complete Time: 15:03 ms3 06/14 14:27 Order name: XRAY Chest (1 view); Complete Time: 15:03 ms3 06/14 15:04 Order name: US Extremity Venous W Compression Cipriano; Complete Time: 16:08 ms3 06/14 14:27 Order name: EKG; Complete Time: 14:27 ms3 06/14 14:27 Order name: Cardiac monitoring; Complete Time: 14:30 ms3 06/14 14:27 Order name: EKG - Nurse/Tech; Complete Time: 14:45 ms3 06/14 14:27 Order name: IV Saline Lock; Complete Time: 14:30 ms3 06/14 14:27 Order name: Labs collected and sent; Complete Time: 14:30 ms3 06/14 14:27 Order name: O2 Per Protocol; Complete Time: 14:30 ms3 06/14 14:27 Order name: O2 Sat Monitoring; Complete Time: 14:30 ms3 EC:49 Rate is 70 beats/min. Rhythm is regular. QRS Creede is Normal. TX interval is prolonged. ms3 QRS interval is normal. Clinical impression: NSR w/ Non-specific ST/T Changes. Interpreted by me. Reviewed by me. Administered Medications: 15:00 Drug: Furosemide PO 40 mg Route: PO; 3 16:00 Follow up: Response: No adverse reaction eh3 Disposition Summary: 06/14/23 16:29 Discharge Ordered Location: Home ms3 Condition: Stable ms3 Diagnosis - Pedal Edema ms3 - Anemia, unspecified ms3 - Pain in right shoulder ms3 Followup: ms3 - With: Adam Zaidi MD - When: 2 - 3 days - Reason: Recheck today's complaints Discharge Instructions: - Discharge Summary Sheet ms3 - Anemia ms3 - Shoulder Pain ms3 Forms: - Medication Reconciliation Form ms3 - Thank You Letter ms3 - Antibiotic Education ms3 - Prescription Opioid Use ms3 - Patient Portal Instructions ms3 Signatures: Dispatcher [employer] Jewel Anand DO DO ms3 Suzy Candelario, RN RN eh3
--- NOTE | 2023-06-14 16:29 | ER ---
Nurse's Notes [facility] Name: Basil Zeng Age: 83 yrs Sex: Male : 1940 Arrival Date: 06/14/2023 Time: 14:15 Bed 17 Private MD: Diagnosis: Pedal Edema;Anemia, unspecified;Pain in right shoulder Presentation: 06/14 14:15 Chief complaint: EMS states: discharged from [place] [facility] yesterday, had sharp eh3 pain in right shoulder earlier today accompanied by diaphoresis, then another sharp pain in left shoulder just prior to calling EMS. New edema of BLE and abdomen. Coronavirus screen: Vaccine status: Patient reports receiving the 2nd dose of the covid vaccine. Ebola Screen: No symptoms or risks identified at this time. Initial Sepsis Screen: Does the patient meet any 2 criteria? No. Patient's initial sepsis screen is negative. Does the patient have a suspected source of infection? No. Patient's initial sepsis screen is negative. Risk Assessment: Do you want to hurt yourself or someone else? Patient reports no desire to harm self or others. Onset of symptoms was June 14, 2023. 14:15 Method Of Arrival: EMS: [facility] eh3 14:15 Acuity: ANANTH 3 eh3 Triage Assessment: 14:15 General: Appears in no apparent distress. uncomfortable, Behavior is calm, cooperative, eh3 appropriate for age. Pain: Complains of pain in left scapular area Pain radiates to left clavicle Quality of pain is described as sharp, Pain began suddenly. Neuro: Level of Consciousness is awake, alert, obeys commands, Oriented to person, place, time, situation. Cardiovascular: Capillary refill < 3 seconds Patient's skin is warm and dry. Cardiovascular: Pulses are palpable in right dorsalis pedis artery and left dorsalis pedis artery Edema is 3+ to left midcalf, left ankle, left foot, right midcalf, right ankle and right foot. Respiratory: Airway is patent Respiratory effort is even, unlabored, Respiratory pattern is regular, symmetrical. GI: Abdomen is round distended. Derm: Skin is pink, warm \T\ dry. Musculoskeletal: Circulation, motion, and sensation intact. Historical: - Allergies: 14:15 No Known Allergies; eh3 - Immunization history:: Adult Immunizations up to date. - Social history:: Smoking status: unknown. Screenin:15 [facility] ED Fall Risk Assessment (Adult) Score/Fall Risk Level 0 - 2 = Low Risk. Abuse [facility] screen: Denies threats or abuse. Denies injuries from another. Nutritional screening: No deficits noted. Tuberculosis screening: No symptoms or risk factors identified. Assessment: 14:15 Reassessment: No changes from previously documented assessment. See triage assessment. [facility] Pain: Complains of pain in chest Pain radiates to back Pain at worst was 9 out of 10 on a pain scale. Quality of pain is described as sharp, Pain began suddenly, 4 hours ago. Is intermittent. 15:15 Reassessment: Patient appears in no apparent distress at this time. Patient and/or [facility] family updated on plan of care and expected duration. Pain level reassessed. Patient is alert, oriented x 3, equal unlabored respirations, skin warm/dry/pink. 16:15 Reassessment: Patient appears in no apparent distress at this time. Patient and/or 3 family updated on plan of care and expected duration. Pain level reassessed. Patient is alert, oriented x 3, equal unlabored respirations, skin warm/dry/pink. Vital Signs: 14:15 BP 135 / 52; Pulse 73; Resp 12; Temp 98.1(O); Pulse Ox 100% on R/A; Weight 86.5 kg; 3 Height 5 ft. 8 in. ; 15:15 BP 137 / 50; Pulse 70; Resp 20; Pulse Ox 100% on R/A; 3 16:15 BP 137 / 54; Pulse 70; Resp 18; Pulse Ox 97% on R/A; [facility] 14:15 Body Mass Index 29.00 (86.50 kg, 172.72 cm) [facility] ED Course: 14:15 Arm band placed on. [facility] 14:15 Patient has correct armband on for positive identification. Bed in low position. Call [facility] light in reach. Side rails up X2. Adult w/ patient. Client placed on continuous cardiac and pulse oximetry monitoring. NIBP monitoring applied. 14:15 Maintain EMS IV. Dressing intact. Good blood return noted. Site clean \T\ dry. Gauge \T\ 3 site: 20g L hand. Oxygen administration via nasal cannula \T\ 2L/min. 14:22 Patient arrived in ED. eb 14:24 Erazo, Jewel, DO is Attending Physician. ms3 14:28 Suzy Candelario, RN is Primary Nurse. eh3 14:51 XRAY Chest (1 view) In Process Unspecified. EDMS 15:34 Triage completed. eh3 15:40 US Extremity Venous W Compression Cipriano In Process Unspecified. EDMS 16:28 Adam Zaidi MD is Referral Physician. ms3 16:50 No provider procedures requiring assistance completed. IV discontinued, intact, eh3 bleeding controlled, No redness/swelling at site. Pressure dressing applied. 16:51 Provided Education on: N/A. 3 Administered Medications: 15:00 Drug: Furosemide PO 40 mg Route: PO; eh3 16:00 Follow up: Response: No adverse reaction eh3 Medication: 16:51 VIS not applicable for this client. eh3 Outcome: 16:29 Discharge ordered by . ms3 16:51 Discharged to home via wheelchair. eh3 16:51 Condition: stable 16:51 Discharge instructions given to patient, family, Instructed on discharge instructions, follow up and referral plans. Demonstrated understanding of instructions, follow-up care. 17:03 Patient left the ED. eh3 Signatures: Dispatcher [employer] EDLA Rosalva Oconnor Jewel Erazo DO DO ms3 Suzy Candelario, RN RN eh3 Corrections: (The following items were deleted from the chart) 15:45 14:15 Pain: Complains of pain in chest 3 eh3 15:46 14:15 BP 135 / 52; Pulse 73bpm; Resp 12bpm; Pulse Ox 100% RA; Temp 98.1F Oral; eh3 eh3
[2023-06-14 17:14] VITALS: TEMP 98.1
[2023-06-14 17:21] VITALS: BP 137/54; O2SAT 97
--- NOTE | 2023-06-16 13:16 | EKG ---
Test Date: 2023-06-14 Test Time: 14:38:04 Nursing Department Chairperson: YURIY MEASUREMENT RESULTS: Intervals: Rate: 70 CT: 290 QRSD: 86 QT: 468 QTc: 505 [place]: P: 71 CT: 290 QRS: 50 T: 93 INTERPRETIVE STATEMENTS: Sinus rhythm with 1st degree AV block Septal infarct, age undetermined ST & T wave abnormality, consider inferior ischemia Prolonged QT Abnormal ECG Compared to ECG 05/13/2023 08:06:37 Myocardial infarct finding now present ST (T wave) deviation now present Possible ischemia now present Prolonged QT interval now present Electronically Signed On 06-16-23 13:12:30 CDT by Adam Zaidi
== END 2023-06-14 17:03 | disposition home or self-care (01) ==
LOC: ER 14:15
DX: R60.9 Edema, unspecified (principal); D64.9 Anemia, unspecified; M25.511 Pain in right shoulder; Z98.890 Other specified postprocedural states
CPT/HCPCS: 36415; 71045; 80048; 83735; 83880; 85025; 93005; 93970; 99284